=== PATIENT | male | born 1960 | race Caucasian/White ===

== ENCOUNTER 2023-05-28 14:48 | Outpatient (OUT) | payer BC, SELFPAY ==
--- NOTE | 2023-05-28 14:59 | XR_ITS ---
[facility] [place] [id number] Patient Name: ALIA ARENAS MRN: [id number] date: 1960 Sex: M Assigned Patient Location: [facility] Current Patient Location: [facility] Accession/Order Number: [id number] Exam Date: 05/28/2023 15:13 Report Date: 05/28/2023 18:06 At the request of: JULIA MCDANIELS Procedure: XR shoulder RT min 2V EXAM: XR shoulder RT min 2V HISTORY: M25.811 COMPARISON: None. TECHNIQUE: 3 views of the right shoulder were obtained. FINDINGS/IMPRESSION: 1. Severe joint space narrowing with marginal spurring is seen at the right acromioclavicular and right glenohumeral joint. These findings are suggestive of advanced osteoarthritis. 2. High riding right humeral head. Severe subacromial space narrowing. These findings are suggestive of the/tear. No acute fracture or subluxation. Electronically authenticated by: KILLIAN NIELSON Date: 05/28/2023 18:06
== END 2023-05-28 14:49 | disposition home or self-care (01) ==
LOC: RAD 14:53
PROVIDERS: PCP Family Medicine; Visit Provider Family Medicine
DX: M25.811 Other specified joint disorders, right shoulder (principal)
CPT/HCPCS: 73030

== ENCOUNTER 2023-08-10 10:53 | Outpatient (OUT) | payer BC, SELFPAY ==
--- NOTE | 2023-08-10 12:41 | P.CN_ITS ---
Consult Note: HPI Data of Consult Patient: known to practice within the last 3 years Consult date: 08/10/23 Requesting Physician: Torres Foote MD Primary Care Provider: Tricia Aragon MD Consult Narrative Reason for consult: low back pain Narrative: 62yom who presents for assessment. increasing low back pain, previously had lumbar rfa in 2019 with significant relief. continues in provider directed home exercise program > 6 weeks, with limited benefit. uses meloxicam, baclofen. denies adverse med side effects. cc:: CC: Torres Foote MD Review of Systems ROS Status of ROS 10 or more systems reviewed and unremarkable except as noted in history and below Meds Home Medications and Allergies Home Medications Medication Instructions Recorded Confirmed Type aspirin 325 mg tablet 325 mg PO DAILY 08/10/23 08/10/23 History baclofen 10 mg tablet 10 mg PO DAILY 08/10/23 08/10/23 History lisinopril 10 mg tablet 12.5 mg PO DAILY 08/10/23 08/10/23 History meloxicam 15 mg tablet 15 mg PO DAILY 08/10/23 08/10/23 History niacin 500 mg tablet 500 mg PO DAILY 08/10/23 08/10/23 History Allergies Allergy/AdvReac Type Severity Reaction Status Date / Time lorazepam [From Ativan] Allergy Unknown Verified 08/10/23 11:38 Exam Narrative Exam Narrative: Psych-alert and oriented x 3. Attentive and appropriate, constitutionally n ormal, displays normal mood and affect per situation.? There are no obvious deficits in memory, reasoning, or intellect.? Skin-no obvious rashes, bruising, erythema noted to the patient's area of pain. Extremities- extremities are warm with minimal edema and palpable pulses. Lumbar-no significant tenderness to palpation noted in the lumbar spine and paraspinal musculature.? Pain is elicited with extension, and lateral rotation of the lumbar spine. Range of motion is slightly diminished with these motions due to pain. Facet loading maneuvers are positive bilaterally and do appear to be concordant with the patient's normal complaints of pain.? Coordination remains intact.? Gait remains non-antalgic. Assessment and Plan Assessment and Plan (1) Lumbar spondylosis: Plan 62yom who presents for evaluation. failed physical and medical modalities, as noted. given symptoms and previous relief, will have him undergo bilateral l4-5, l5-s1 medial branch blocks under fluoroscopic guidance with intention of proceeding to radiofrequency ablation. he is in agreement. medications reviewed, no changes. follow up after procedure.
== END 2023-08-10 10:54 | disposition home or self-care (01) ==
LOC: PM 10:54
PROVIDERS: PCP Family Medicine; Visit Provider Anesthesiology
DX: M47.816 Spondylosis without myelopathy or radiculopathy, lumbar region (principal)
CPT/HCPCS: 72114; G0463

== ENCOUNTER 2023-08-10 11:44 | Outpatient (OUT) | payer BC, SELFPAY ==
--- NOTE | 2023-08-10 11:55 | XR_ITS ---
[facility] [place] [address] Patient Name: ALIA ARENAS MRN: [id number] date: 1960 Sex: M Assigned Patient Location: [facility] Current Patient Location: Accession/Order Number: [id number] Exam Date: 08/10/2023 12:12 Report Date: 08/11/2023 08:07 At the request of: PUSHPA ZHANG Procedure: XR lumbar spine 6V w bending EXAMINATION: XR lumbar spine 6V w bending HISTORY: Lumbar Spondylosis COMPARISON: No relevant comparison available. FINDINGS: BONES: 9 mm anterolisthesis of L4 in relation L5. Moderate to severe diffuse degenerative spondylosis and facet osteoarthropathy. No acute fracture. DISC SPACES: Moderate to severe multilevel disc space narrowing most significant at L5-S1 PARASPINOUS: Negative. No paraspinous abnormality is seen. OTHER: Vascular calcifications XR/XR lumbar spine 6V w bending IMPRESSION: Moderate to severe degenerative changes 9 mm anterolisthesis of L4 on L5 Electronically authenticated by: ANUPAM MENDOZA Date: 08/11/2023 08:07
== END 2023-08-10 11:45 | disposition home or self-care (01) ==
LOC: RAD 11:48
PROVIDERS: PCP Family Medicine; Visit Provider Anesthesiology
DX: M47.816 Spondylosis without myelopathy or radiculopathy, lumbar region (principal)
CPT/HCPCS: 72114

== ENCOUNTER 2023-09-07 07:49 | Day surgery (SDC) | payer BC, SELFPAY ==
[2023-09-07 08:43] VITALS: BP 141/85; PULSE 77; RESP 14; TEMP 36.3; O2SAT 100
[2023-09-07] MEDS: BUPIVACAINE HCL 0.25% PF 25 MG/10 ML VIAL 8 ML INJ (09:26)
[2023-09-07] MEDS: LIDOCAINE HCL 2% PF 100 MG/5 ML VIAL 3 ML INJ (09:26)
[2023-09-07 09:28] VITALS: PULSE 85; RESP 18; O2SAT 98
[2023-09-07 09:29] VITALS: BP 140/67; BP 145/68; PULSE 80; RESP 18; O2SAT 98
--- NOTE | 2023-09-07 09:30 | W.PM.PROCNOT ---
Date of procedure: 09/07/23 Pre-op diagnosis: Lumbar spondylosis Post-op diagnosis: same as pre-op Procedure: Procedure: Bilateral L4-5, L5-S1 medial branch block Medications: Bupivacaine 0.5% 6cc The patient was seen and examined in the preoperative holding area.? An informed consent was obtained and placed on the chart.? The patient was brought to the medical procedure unit and placed in the prone position.? A timeout was completed verifying correct patient, procedure site, positioning, plan, and special equipment.? Using aseptic technique, the needle was placed at left L4. Under direct fluoroscopic visualization a Quincke-tipped spinal needle was advanced to the junction of the superior articulating process with the transverse process at the designated medial branch segment.? Preceded by negative aspiration, the above-mentioned injectate was placed in 1 mL aliquots.? The procedure was repeated at left L5, S1.? The needle was removed and insertion site was covered. The same procedure, at the same levels, was completed on the right side. The patient was taken to the postprocedural recovery area and monitored for an appropriate length of time before found suitable for discharge in the company of a responsible adult. Anesthesia: Local Surgeon: Torres Foote Pathology: none sent Condition: stable Disposition: no change
== END 2023-09-07 09:35 | disposition home or self-care (01) ==
PROVIDERS: PCP Family Medicine; Visit Provider Anesthesiology
DX: M47.816 Spondylosis without myelopathy or radiculopathy, lumbar region (principal)
CPT/HCPCS: 64493; 64494

== ENCOUNTER 2023-09-24 14:41 | Outpatient (OUT) | payer BC, SELFPAY ==
--- NOTE | 2023-09-24 15:30 | P.CN_ITS ---
Consult Note: HPI Data of Consult Patient: known to practice within the last 3 years Consult date: 08/10/23 Requesting Physician: Karen Sow NP Primary Care Provider: Tricia Aragon MD Consult Narrative Reason for consult: f/u Narrative: 62yom who presents for assessment. increasing low back pain, previously had lumbar rfa in 2019 with significant relief. continues in provider directed home exercise program > 6 weeks, with limited benefit. uses meloxicam, baclofen. denies adverse med side effects. Patient rating pain today 4/10 in low back without radiculopathy. Patient had 100% pain relief from bilateral L4-5 L5-S1 MBB #1 immediately following and hours after, patient noticed he could stand for longer periods of time and be more active. cc:: CC: Karen Sow NP Review of Systems ROS Status of ROS 10 or more systems reviewed and unremark able except as noted in history and below Musculoskeletal Reports: back pain PFSH PFSH Medical History (Updated 08/25/23 @ 14:28 by Sujey Torres) Osteoarthritis ?M19.90 - Unspecified osteoarthritis, unspecified site (ICD-10) Upper back pain ?M54.9 - Dorsalgia, unspecified (ICD-10) Low back pain ?M54.50 - Low back pain, unspecified (ICD-10) Hearing deficit ?H91.90 - Unspecified hearing loss, unspecified ear (ICD-10) Obesity ?E66.9 - Obesity, unspecified (ICD-10) Former smoker ?Z87.891 - Personal history of nicotine dependence (ICD-10) Hypertension ?I10 - Essential (primary) hypertension (ICD-10) High cholesterol ?E78.00 - Pure hypercholesterolemia, unspecified (ICD-10) Surgical History S/P right knee arthroscopy ?Z98.890 - Other specified postprocedural states (ICD-10) Meds Home Medications and Allergies Home Medications Medication Instructions Recorded Confirmed Type aspirin 325 mg tablet 325 mg PO DAILY 08/10/23 09/07/23 History baclofen 10 mg tablet 10 mg PO DAILY 08/10/23 09/07/23 History lisinopril 10 mg tablet 12.5 mg PO DAILY 08/10/23 09/07/23 History meloxicam 15 mg tablet 15 mg PO DAILY 08/10/23 09/07/23 History niacin 500 mg tablet 500 mg PO DAILY 08/10/23 09/07/23 History Allergies Allergy/AdvReac Type Severity Reaction Status Date / Time lorazepam [From Ativan] Allergy Unknown Verified 09/07/23 08:39 Exam Narrative Exam Narrative: Psych-alert and oriented x 3. Attentive and appropriate, constitutionally normal, displays normal mood and affect per situation.? There are no obvious deficits in memory, reasoning, or intellect.? Skin-no obvious rashes, bruising, erythema noted to the patient's area of pain. Extremities- extremities are warm with minimal edema and palpable pulses. Lumbar-no significant tenderness to palpation noted in the lumbar spine and paraspinal musculature.? Pain is elicited with extension, and lateral rotation of the lumbar spine. Range of motion is slightly diminished with these motions due to pain. Facet loading maneuvers are positive bilaterally and do appear to be concordant with the patient's normal complaints of pain.? Coordination remains intact.? Gait remains non-antalgic. Constitutional Documenting provider has reviewed patient's vital signs: yes Common normals: no apparent distress, oriented x3, healthy appearing, alert and well nourished General appearance: cooperative HENFL Common normals: normocephalic, hearing grossly normal bilaterally and moist oral mucous membranes Head and scalp: normocephalic Eye Common normals: PERRL Pupil: PERRL Neck & C-Spine Common normals: full ROM General: normal visual inspection Chest Common normals: inspection of chest normal Respiratory Common normals: normal respiratory effort, no retractions and no use of accessory muscles Neuro Common normals: oriented x3, CN's II-XII intact bilaterally, moves all extremities, no focal motor deficits, no sensory deficits noted and deep tendon reflexes 2+ bilaterally Sensorium/orientation: alert Motor exam: strength 5/5 throughout and no movement abnormalities noted Psych Common normals: mental status grossly normal, thought process normal, cooperative, affect normal, speech normal and activity/motor behavior normal Speech: normal speech Thought process: normal thought process Results Additional Findings Additional findings: I have checked an [facility] report on this patient today and there are no aberrancies noted in the prescribing history.?? A drug screen was completed and reviewed within the last year, and if there has not been a drug screen completed we ordered one today to monitor higher risk, state monitored pain medication use. As part of providing excellent, safe, comprehensive care, the following was completed at our patient's visit: 1. A medication reconciliation and review to ensure accurate knowledge of current/active medications, including asking our patients to inform us about any [id number] medications or herbal remedies/nutritional supplements/alternative remedies. 2. A review to specifically ensure our patients have had annual screening for: elevated body mass index (BMI), tobacco use, screening for depression, and screening for unhealthy alcohol use. When screening is concerning, patients are provided with education and the specific recommendation to discuss the concerning health issue and treatment options with their primary care provider. Assessment and Plan Assessment and Plan (1) Lumbar spondylosis: Plan proceed with bilateral L4-5 L5-S1 MBB #2 working towards thermal RFA f/u after procedure
== END 2023-09-24 14:42 | disposition home or self-care (01) ==
LOC: PM 14:42
PROVIDERS: PCP Family Medicine; Visit Provider Nurse Practitioner
DX: M47.816 Spondylosis without myelopathy or radiculopathy, lumbar region (principal)
CPT/HCPCS: G0463

== ENCOUNTER 2023-12-08 14:09 | Outpatient (OUT) | payer MEDICARE, BC, SELFPAY ==
--- NOTE | 2023-12-08 14:19 | ECG_ITS ---
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
== END 2023-12-08 14:10 | disposition home or self-care (01) ==
LOC: CARD 14:13
PROVIDERS: PCP Family Medicine; Visit Provider Family Medicine
DX: I48.91 Unspecified atrial fibrillation (principal); I48.92 Unspecified atrial flutter
CPT/HCPCS: 93005

== ENCOUNTER 2024-04-12 09:59 | Outpatient (OUT) | payer MEDICARE, SELFPAY ==
--- NOTE | 2024-04-12 10:05 | VEIN_ITS ---
[place] [id number] Patient Name: ALIA ARENAS MRN: [id number] date: 1960 Sex: M Assigned Patient Location: Current Patient Location: Accession/Order Number: [id number] Exam Date: 04/12/2024 10:05 Report Date: 04/18/2024 12:33 At the request of: VAISHNAVI MCCALLUM Procedure: VC US Carotid EXAM: VC US Carotid HISTORY: I65.23 Bilateral carotid artery stenosis COMPARISON: None. TECHNIQUE: Grayscale, color and Doppler FINDINGS: Right carotid artery PSV/EDV: Mild atherosclerotic plaque CCA: 97/13 ICA: 57/21 Bulb: 51/8 ECA: 99/12 Vertebral: 36/10, antegrade ICA/CCA ratio: 0.8 Left carotid artery PSV/EDV: Mild atherosclerotic plaque CCA: 102/23 ICA: 65/13 Bulb: 62/10 ECA: 88/18 Vertebral: 34/8, antegrade ICA/CCA ratio: 0.8 VEIN/VC US Carotid IMPRESSION: 0-49% flow stenosis bilateral internal carotid arteries Electronically authenticated by: ANUPAM MENDOZA Date: 04/18/2024 12:33
--- NOTE | 2024-04-12 10:06 | VEIN_ITS ---
[facility] [place] [address] Patient Name: ALIA ARENAS MRN: [id number] date: 1960 Sex: M Assigned Patient Location: Current Patient Location: Accession/Order Number: [id number] Exam Date: 04/12/2024 10:05 Report Date: 04/18/2024 06:26 At the request of: VAISHNAVI MCCALLUM Procedure: VC SEGMENTAL PRESSURES EXAM: VC SEGMENTAL PRESSURES HISTORY: I73.9 Claudiction COMPARISON: None. FINDINGS: Segmental pressures presented as follows (right, left) in mmHg. 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: 278, 270 1st Toe: 211, 185 MARJORIE: 2.18, 2.15 TBI: 1.16, 1.42 The ABIs are falsely elevated secondary to arterial sclerosis The TBI's are elevated PVR waveforms: Right leg: Thigh: Normal Above knee: Normal Below knee: Normal Right ankle: Normal Metatarsal: Normal Left leg: Thigh: Normal Above knee: Normal Below knee: Mild ischemic waveform Right ankle: Mild ischemic waveform Metatarsal: Normal VEIN/VC SEGMENTAL PRESSURES IMPRESSION: Elevated ABIs secondary to arteriosclerosis Mild ischemic waveform left below knee and ankle Electronically authenticated by: ANUPAM MENDOZA Date: 04/18/2024 06:26
--- OUTSIDE RECORDS SUMMARY | 2024-04-12 10:16 | XMS_ITS | CCD ---
Author Organization [facility] Care Team Providers Care Physician'S Aide Name Role Phone JULIA MCDANIELS Primary Care Physician Julia Mcdaniels MD Primary Care Provider DO Anupam Quesada Attending Provider MD Julia Mcdaniels Primary Care Provider MD Julia Mcdaniels Attending Provider [phone] DO Bree Segovia Referring Provider Julia Mcdaniels Unavailable Unavailable Unavailable Julia Mcdaniels Unavailable AMIN ., DR ROMAN Garcia Admitting Unavailable AMIN ., DR ROMAN Garcia Attending Unavailable JULIA MCDANIELS Primary Care Unavailable AMIN ., DR ROMAN Garcia Consulting Unavailable MAHAN ., JANIS Consulting Unavailable AMIN ., DR ROMAN Garcia Admitting Unavailable AMIN ., DR ROMAN Garcia Attending Unavailable JULIA MCDANIELS Primary Care Unavailable AMIN ., DR ROMAN Garcia Consulting Unavailable LINDA SAENZ Consulting Unavailable POCOS, DR BO Admitting Unavailable POCOS, DR BO Attending Unavailable JULIA MCDANIELS Primary Care Unavailable ABBAS, DR ROD Admitting Unavailable ABBAS, DR ROD Attending Unavailable JULIA MCDANIELS Primary Care Unavailable ABBAS, DR ROD Consulting Unavailable BANNOCK, DR BO V Consulting Unavailable MAHAN .JANIS Admitting Unavailable MAHAN .JANIS Attending Unavailable ARSLAN, JULIA E Primary Care Unavailable Wanda Cadena Consulting Unavailable MAHAN ., JANIS Consulting Unavailable AMIN ., DR ROMAN Garcia Admitting Unavailable AMIN ., DR ROMAN Garcia Attending Unavailable JULIA MCDAINELS Primary Care Unavailable MAHAN ., JANIS Consulting Unavailable AMIN ., DR ROMAN Garcia Admitting Unavailable AMIN ., DR ROMAN Garcia Attending Unavailable JULIA MCDANIELS Primary Care Unavailable MAHAN ., JANIS Consulting Unavailable ELOISA ., DR ROMAN Garcia Admitting Unavailable ELOISA ., DR ROMAN Garcia Attending Unavailable JULIA MCDANIELS Primary Care Unavailable MAHAN ., JANIS Consulting Unavailable Julia Mcdaniels MD Primary Care Provider Hima ALBERTS, Dr. Americo Leblanc Attending Unavailable McGuinn II, Dr. Americo Leblanc Referring Unavailable Mcdaniels, Dr. Julia Donohue Primary Care Unav ailable McGuinn II, Dr. Americo Leblanc Referring Unavailable McGuinn II, Dr. Americo Leblanc Attending Unavailable Mcdaniels, Dr. Julia Donohue Primary Care Unav ailable Arslan, Dr. Julia Donohue Primary Care Unav ailable Luca, Americo Attending Unavailable McGuinn II, Dr. Americo Leblanc Attending Unavailable McGuinn II, Dr. Americo Leblanc Referring Unavailable Mcdaniels, Dr. Julia Donohue Primary Care Unav ailable McGuinn II, Dr. Americo Leblanc Attending Unavailable McGuinn II, Dr. Americo Leblanc Referring Unavailable Mcdaniels, Dr. Julia Donohue Primary [facility] [place] Unav carmenable Qamar JAVIER, Torres Castañeda Attending Unavailable Qamar JAVIER, Torres Castañeda Attending Unavailable Julia Mcdaniels MD Primary Care Provider MD Julia Mcdaniels Primary Care Provider MD Americo Rabago Attending Provider MD Americo Rabago Referring Provider Americo Rabago Admitting Unavail able Americo Rabago Attending Unavail able Americo Rabago Referring Unavail able Julia Mcdaniels Primary Care Unavailable MD Julia Mcdaniels Primary Care Provider MD Americo Rabago Attending Provider MD Americo Rabago Referring Provider Julia Mcdaniels MD Primary Care Provider SUKUMAR BREWER Attending Unavailable JULIA MCDANIELS Referring Unavailable JULIA MCDANIELS Primary Care Unavailable Mcdaniels MD, Julia E Primary Care Provider [phone] POCOS, ANUPAM Anand Referring Unavailable POCOS, ANUPAM Anand Attending Unavailable POCOS, ANUPAM Anand Attending Unavailable POCOS, ANUPAM Anand Attending Unavailable KARAMLOU, ANSELMO Referring Unavailable KARAMLOU, ANSELMO Attending Unavailable MCDANIELS, JULAI E Primary Care Unavailable MCDANIELS, JULIA E Primary Care Unavailable KARAMLOU, ANSELMO Referring Unavailable MCDANIELS, JULIA E Primary Care Unavailable KARAMLOU, ANSELMO Referring Unavailable MARGARITA TAYLOR Attending Unavailable MCDANIELS, JULIA E Primary Care Unavailable KARAMLOU, ANSELMO Referring Unavailable MCDANIELS, JULIA E Primary Care Unavailable KARAMLOU, ANSELMO Referring Unavailable KARAMLOU, ANSELMO Attending Unavailable MCDANIELS, JULIA E Primary Care Unavailable MCDANIELS, JULIA E Primary Care Unavailable KARAMLOU, ANSELMO Referring Unavailable MCDANIELS, JULIA E Primary Care Unavailable KARAMLOU, ANSELMO Referring Unavailable KARAMLOU, ANSELMO Attending Unavailable MCDANIELS, JULIA E Primary Care Unavailable KARAMLOU, ANSELMO Referring Unavailable MCDANIELS, JULIA E Primary Care Unavailable MCDANIELS, JULIA E Primary Care Unavailable KARAMLOU, ANSELMO Referring Unavailable MCDANIELS, JULIA E Primary Care Unavailable KARAMLOU, ANSELMO Referring Unavailable KARAMLOU, ANSELMO Attending Unavailable MCDANIELS, JULIA E Primary Care Unavailable MCDANIELS, JULIA E Primary Care Unavailable KARAMLOU, ANSELMO Referring Unavailable KARAMLOU, ANSELMO Referring Unavailable MCDANIELS, JULIA E Primary Care Unavailable KARAMLOU, ANSELMO Referring Unavailable MARGARITA TAYLOR Attending Unavailable MCDANIELS, JULIA E Primary Care Unavailable KARAMLOU, ANSELMO Referring Unavailable MCDANIELS, JULIA E Primary Care Unavailable MCDANIELS, JULIA E Primary Care Unavailable MCGUINN, AMERICO P Attending Unavailable MCDANIELS, JULIA E Primary Care Unavailable MCGUINN, AMERICO P Referring Unavailable MCDANIELS, JULIA E Primary Care Unavailable MCGUINN, AMERICO P Referring Unavailable MCDANIELS, JULIA E Primary Care Unavailable MCGUINN, AMERICO P Referring Unavailable MCDANIELS, JULIA E Primary Care Unavailable ELIAS Kevin Admitting Unavailabl e MCDANIELS, JULIA Referring Unavailable Staci Kevin Attending Unavailable ARSLAN, JULIA Referring Unavailable ELIAS Kevin Admitting Unavailabl e Herberth Staci Attending Unavailable Ruben CHASE Referring Unavailable NILLRuben Admitting Unavailable NILRuben Jurado Attending Unavailable DO David Cao Admitting UnavailDavid Ty Attending Unavailable David Cao Referring Unavailable DO David Cao Admitting UnavailDavid Ty Attending Unavailable David Cao Referring Unavailable Vicky, Anupam Anand Admitting Unavailable Poccindi, Anupam Anand Attending Unavailable Poccindi, Anupam Anand Referring Unavailable NILL, Ruben Martinez Attending Unavailable NILL, Ruben Martinez Attending Unavailable MCDANIELSJULIA Admitting Unavailable MCDANIELS, JULIA Attending Unavailable MCDANIELS, JULIA Referring Unavailable Pocos, Anupam Anand Admitting Unavailable Pocos, Anupam Anand Attending Unavailable Pocos, Anupam Anand Admitting Unavailable Pocos, Anupam Anand Attending Unavailable Allergies Allergy Classification Reported Allergen(s) Allergy Type Date of Onset Reaction(s) Facility (20 sources) LORazepam; Translations: [lorazepam] Drug Allergy 3 Other: See Comments, Dizziness, Dizziness (finding) [facility] (2 sources) LORazepam Drug Allergy [address] [facility] Repository (20 sources) ezetimibe / Simvastatin; Translations: [ezetimibe-simva statin] Drug Allergy 2 Unknown, Weal (disorder) [facility] (20 sources) lamoTRIgine; Translations: [LAMOTRIGINE] Drug Allergy 2 Mental Status Change, Feeling agitated (finding) [facility] (3 sources) ezetimibe Drug Allergy 3 [facility] Repository (1 source) lamoTRIgine Drug Allergy 3 [facility] Repository (1 source) LORazepam Drug Allergy 3 [facility] Repository (3 sources) Simvastatin Drug Allergy 3 [facility] Repository (2 sources) ezetimibe / Simvastatin; Translations: [EZETIMIBE-SIMVA STATIN] Drug Allergy 2 [facility] Repository (1 source) ezetimibe / Simvastatin; Translations: [Vytorin] Drug Allergy [facility] Repository (1 source) lamoTRIgine; Translations: [LaMICtal] Drug Allergy [facility] Repository Medications Current Medications Medication Drug Class(es) Dates Sig (Normalized) Sig (Original) 0.25 MG, 0.5 MG Dose 3 ML semaglutide 0.68 MG/ML Pen Injector [Ozempic] (2 sources) inject 0.5 mg by subcutaneous injection every week Ozempic (0.25 or 0.5 MG/DOSE) 2 MG/3ML 0.5mg Subcutaneous weekly for 30 days Active [id number] 200 actuat albuterol 0.09 mg/actuat metered dose inhaler (20 sources) beta2-Adrenergic Agonist Start: 10-21-2022 take 2 puff(s) by inhalation every four hours as needed Ventolin HFA 108 (90 Base) MCG/ACT 2 puffs as needed Inhalation every 4 hrs Oct, Active Start: 07-11-2021 albuterol (PRO VENTIL HFA;VENTOLIN HFA) 90 mcg/actuation inhaler apixaban 5 mg oral tablet (20 sources) Factor Xa Inhibitor Start: 10-07-2023 End: 11-04-2024 apixaban (ELIQUIS) 5 mg tab(s) Take 5 mg by mouth. 0 10/07/2023 11/04/2024 Active Comment on above: Take 5 mg by mouth. aspirin 81 mg delayed release oral tablet (20 sources) Platelet Aggregation Inhibitor, Nonsteroidal Anti-inflammatory Drug Start: 08-05-2022 Aspirin 81 mg Tab -EC 81 mg = 1 tab(s), Oral, BIDPC, # 60 tab(s), Refills(s) 0, Pharmacy: [facility]/pharmacy #[id number], 177, cm, 07/18/22 10:25:00 EDT, Height/Length Dosing, 131.4, kg, 07/18/22 10:25:00 EDT, Weight Dosing Start Date: 08/05/22 Status: Ordered Start: 07-18-2022 End: 10-07-2023 take 1 tablet by mouth once daily aspirin buffered 325 mg oral tablet 325 mg = 1 tab(s), Oral, Daily, Blood Thinner Start Date: 07/18/22 Status: Ordered Comment on above: Take 325 mg by mouth once daily. Aspirin 81 mg Tab-EC (3 sources) Start: 08-05-2022 Aspirin 81 mg Tab-EC 81 mg = 1 tab(s), Oral, BIDPC, # 60 tab(s), Refills(s) 0, Pharmacy: [facility]/pharmacy #[id number], 177, cm, 07/18/22 10:25:00 EDT, Height/Length Dosing, 131.4, kg, 07/18/22 10:25:00 EDT, Weight Dosing Start Date: 08/05/22 Status: Ordered baclofen 10 mg oral tablet (20 sources) gamma-Aminobutyric Acid-ergic Agonist Start: 07-18-2022 take 1 tablet by mouth once daily as needed for pain baclofen 10 mg Tab 10 mg = 1 tab(s), Oral, Daily, PRN Pain, Refills(s) 0 Start Date: 07/18/22 Status: Ordered Start: 09-25-2021 take 10 mg by mouth three times daily Baclofen Active 10 MG PO Three times daily November 03, 2023 1:00am Baclofen 10 MG/2 0ML as directed Intrathecal Not-Taking/PRN Comment on above: Take 10 mg by mouth as needed. cefadroxil 500 mg oral capsule (1 source) Cephalosporin Antibacterial Start: 2 End: 2 take 1 capsule by mouth every twelve hours cefadroxil 500 mg Cap 500 mg = 1 cap(s), Oral, q12hr, X 2 day(s), # 4 cap(s), Refills(s) 0, Pharmacy: [facility]/pharmacy #[id number], 177, cm, 07/18/22 10:25:00 EDT, Height/Length Dosing, 131.4, kg, 07/18/22 10:25:00 EDT, Weight Dosing Start Date: 08/05/22 Stop Date: 08/07/22 Status: Ordered cefdinir 300 mg oral capsule (6 sources) Cephalosporin Antibacterial Start: 4 take 1 capsule by mouth every twelve hours cefdinir (OMNICEF) 300 mg capsule Take 1 capsule by mouth every 12 hours. 0 12/24/2023 Active Start: 12-24-2023 End: 01-12-2024 take 300 mg by mouth twice daily Cefdinir Discontinued 300 MG PO Twice daily December 24, 2023 12:00am January 12, 2024 11:40am Comment on above: Take 1 capsule by [facility] every 12 hours. Cetirizine (4 sources) Histamine-1 Receptor Antagonist cetirizine HCl (ZYRTEC ORAL) Take by mouth once daily. 0 Active Comment on above: Take by mouth once d aily. dexamethasone 4 mg oral tablet (1 source) Corticosteroid Start : 07-05 dexAMETHasone (DECADRON) 4 mg tablet docusate sodium 100 mg oral capsule (5 sources) Start : 08-05 take 1 capsule by mouth twice daily as needed for constipation Colace 100 mg Cap 100 mg = 1 cap(s), Oral, BID, PRN for constipation, # 40 cap(s), Refills(s) 0, Pharmacy: [facility]/pharmacy #[id number], 177, cm, 07/18/22 10:25:00 EDT, Height/Length Dosing, 131.4, kg, 07/18/22 10:25:00 EDT, Weight Dosing Start Date: 08/05/22 Status: Ordered hydroCHLOROthiazide 12.5 mg / lisinopril 20 mg oral tablet (20 sources) Thiazide Diuretic, Angiotensin Converting Enzyme Inhibitor Start : 01-24 take 1 tablet by mouth once daily Lisinopril-Hydroch lorothiazide Active 0 .ROUTE .COMPLEX 90 January 25, 2024 11:11am TAKE 1 TABLET BY MOUTH DAILY Start: 07-18-2022 End: 01-25-2024 take 1 tablet by mouth once daily hydrochlorothiazide-lisinopril 12.5 mg-2 0 mg Tab 1 tab(s), Oral, Daily, Refill(s) 0, High blood pressure Start Date: 07/18/22 Status: Ordered Start: 03-13-2021 lisinopril-hyd roCHLOROthiazide (PRINZIDE,ZESTORETIC) 20-12.5 mg per tablet Ibuprofen (16 sources) Nonsteroidal Anti-inflammatory Drug IBUPROFEN ORAL Ta ke by mouth. 0 Active Comment on above: Take by mouth. ketoconazole 20 mg/ml topical cream (17 sources) Azole Antifungal Start: 08-19-2021 ketoconazole (NIZORAL) 2 % cream Start: 04-05-2019 End: 07-30-2022 ketoconazole (NIZORAL) 2 % c ream USE 1-2 TIMES A DAY 3 04/05/2019 07/30/2022 Discontinued Ketoconazole 2 % 1 application Externally Once a day for 14 days Active Ketoconazole 2 % 1 application Externally Once a day for 14 days Active Comment on above: USE 1-2 TIMES A DAY levoFLOXacin 750 mg oral tablet (1 source) Quinolone Antimicrobial Start: 07-05-20 levoFLOXacin (LEVAQUIN) 750 mg tablet 24 hr metFORMIN hydrochloride 500 mg extended release oral tablet (2 sources) Biguanide Start: 03-26-20 take 2 tablets by mouth every twenty-four hours metFORMIN HCl ER 500 MG 2 tablets with evening meal Orally Once a day for 30 days Mar, Active 24 hr metoprolol succinate 100 mg extended release oral tablet (2 sources) beta-Adrenergic Jayne Start: 10-07-20 End: 10-06-20 take 1 tablet by mouth once daily metoprolol succinate XL (Toprol-XL) 100 mg 24 hr tablet Indications: Persistent atrial fibrillation (CMS/HCC) Take 1 tablet (100 mg) by mouth once daily. Do not crush or chew. 90 tablet 3 10/07/2023 10/06/2024 Active multivitamin tablet (2 sources) End: 10-22-19 take 1 tablet by mouth once daily multivitamin tablet Take 1 tablet by mouth once daily. 0 10/22/2023 Discontinued (Therapy completed) take 1 tablet by mouth once reg y multivitamin tablet Take 1 tablet by mouth once daily. 0 Active multivitamin with minerals (9 sources) Start: 12-14-2023 multivitamin w ith minerals Refill(s) 0 Start Date: 12/14/23 Status: Ordered multivitamin-mineral s-lutein (CENTRUM SILVER) tablet (1 source) take 1 tablet by mouth in the morning multivitamin-minera ls-lutein (CENTRUM SILVER) tablet Take 1 tablet by mouth in the morning. 0 Active niacin 500 mg extended release oral capsule (20 sources) Nicotinic Acid Start: 11-03-2023 take 500 mg by mouth once daily at bedtime Niacin Active 500 MG PO Daily at bedtime November 03, 2023 1:00am Start: 07-18-2022 take 1 tablet by toyin th once daily niacin 500 mg ER Tab 500 mg = 1 tab(s), Oral, Daily, Refills(s) 0, High cholesterol Start Date: 07/18/22 Status: Ordered Start: 09-11-2021 NIASPAN EXTEND ED-RELEASE 500 mg CR tablet take 1 tablet by toyin th at bedtime Niacin ER (Antihyperlipidemic) 500 MG TAKE 1 TABLET BY MOUTH AT BEDTIME for 90 Active Comment on above: Take 500 mg by mouth daily with breakfast. oxyCODONE hydrochloride 5 mg oral tablet (5 sources) Opioid Agonist Start: 08-05-20 oxyCODONE 5 mg Tab 5 mg = 1 tab(s), Oral, As Directed, 1-2 po q4-6 hrs prn pain Dx: M17.11, Z96.651 Duration: 7days, # 40 tab(s), Refills(s) 0, Pharmacy: [facility]/pharmacy #[id number], 177, cm, 07/18/22 10:25:00 EDT, Height/Length Dosing, 131.4, kg, 07/18/22 10:25:00 EDT, Weight Dosing Start Date: 08/05/22 Status: Ordered Semaglutide (9 sources) Semaglutide Acti ve sildenafil 50 mg oral tablet (17 sources) Phosphodiesterase 5 Inhibitor Start: 03-14-20 take 1 tablet by mouth once daily as needed sildenafil (VIAGRA) 50 mg tablet TAKE 1 TABLET BY MOUTH NEEDED DAILY 0 03/14/2021 Active Comment on above: TAKE 1 TABLET BY TOYIN TH NEEDED DAILY sotalol hydrochloride 120 mg oral tablet (20 sources) Antiarrhythmic Start: 01-12-20 Sotalol (Sotalol Af) 120 mg tablet Active 40 MG PO Twice daily January 12, 2024 11:35am Start: 12-14-2023 sotalol 80 mg Tab 40 mg = 0.5 tab(s), Oral, BID Start Date: 12/14/23 Status: Ordered Start: 12-08-2023 End: 01-12-2024 Sotalol (Sotalol Af) 120 mg tablet Discontinued 80 MG PO Twice daily December 08, 2023 2:46pm January 12, 2024 11:36am Start: 11-03-2023 End: 12-08-2023 take 1 tablet by mouth twice daily Sotalol (Sotalol Af) 120 mg tablet Discontinued 120 MG PO Twice daily November 03, 2023 1:00am December 08, 2023 2:48pm Start: 10-22-2023 End: 10-21-2024 sotalol (BETAPACE) 80 mg tab let Take 20 tablets by mouth two times a day. 0 10/22/2023 Active take 40 mg by mouth at bedtime s otalol HCl (SOTALOL ORAL) Take 40 mg by mouth in the morning and at bedtime. 0 Active take 1 tablet by toyin th every twelve hours Sotalol HCl 120 MG 1 tablet Orally every 12 hrs Active Comment on above: Take 1 tablet by toyin th two times a day. tadalafil 10 mg oral tablet (2 sources) Phosphodiesterase 5 Inhibitor Start: 11-04-2021 tadalafiL (CIALIS) 10 MG tablet Take 1 tablet (10 mg total) by mouth as needed. 0 11/04/2021 Active triamcinolone acetonide 0.055 mg/actuat metered dose nasal spray (6 sources) Corticosteroid Start: 02-04-2024 Nasacort Allergy 24HR nasal spray 1 spray(s), Nasal, Daily Allergy symptoms, Refill(s) 0 Start Date: 02/04/24 Status: Ordered Completed/Discontinued Medications Medication Drug Class(es) Dates Sig (Normalized) Sig (Original) amoxicillin 500 mg oral tablet (1 source) Penicillin-class Antibacterial Start: 01-13-2024 End: 02-17-2024 take 1000 mg by mouth twice daily Amoxicillin Discontinued 1000 MG PO Twice daily January 13, 2024 12:00am February 17, 2024 11:23am amoxicillin 875 mg / clavulanate 125 mg oral tablet (10 sources) Penicillin-class Antibacterial Start: 08-25-2022 take 1 tablet by mouth twice daily amoxicillin-clavul anic acid (AUGMENTIN) 875-125 mg per tablet Take 1 tablet by mouth twice daily. 0 08/25/2022 Active Comment on above: Take 1 tablet by toyin twice daily. cephalexin 500 mg oral tablet (20 sources) Cephalosporin Antibacterial Start: 10-15-2022 take 1 tablet by mouth every eight hours Cephalexin 500 MG 1 tablet Orally tid for 7 days Oct, Not-Taking/PRN Start: 08-05-2022 End: 08-12-2022 take 1 capsule by mouth three times daily Keflex 500 mg Cap 500 mg = 1 cap(s), Oral, TID, X 7 day(s), # 21 cap(s), Refills(s) 0, Pharmacy: [facility]/pharmacy #[id number], 177, cm, 07/18/22 10:25:00 EDT, Height/Length Dosing, 131.4, kg, 07/18/22 10:25:00 EDT, Weight Dosing Start Date: 08/05/22 Stop Date: 08/12/22 Status: Ordered meloxicam 15 mg oral tablet (20 sources) Nonsteroidal Anti-inflammatory Drug Start: 04-14-2022 take 1 tablet by mouth once daily meloxicam (MOBIC) 15 mg tablet TAKE 1 TABLET BY MOUTH EVERY DAY FOR 30 DAYS 0 04/14/2022 Active take 1 capsule by mo [facility] every twenty-four hours Meloxicam 10 MG 1 capsule Orally Once a day Active Comment on above: TAKE 1 TABLET BY TOYIN EVERY DAY FOR 30 DAYS methylPREDNISolone 4 mg oral tablet (19 sources) Corticosteroid Start: 023 Medrol (Jaydon) 4 MG as directed Orally daily for 6 days Oct, Not-Taking/PRN Multi Vitamin Oral Tablet (4 sources) take 1 tablet by mouth once daily Multi Vitamin Oral Tablet TAKE 1 TABLET DAILY. Quantity: 0 Refills: 0 Ordered: 05-Nov-2022 DO Active rosuvastatin calcium 20 mg oral tablet (1 source) HMG-CoA Reductase Inhibitor Start: 019 End: 022 rosuvastatin (CRESTOR) 20 mg tablet Every 3 days 0 06/28/2019 07/30/2022 Discontinued (Discontinued by another Health Care Provider) Comment on above: Every 3 days semaglutide (OZEMPIC SUBCUTANEOUS) (7 sources) semaglutide (OZEMPIC SUBCUTANEOUS) Inject subcutaneously. 0 Active Comment on above: Inject subcutaneousl y. Vitamin D3 CAPS (2 sources) Vitamin D3 CAPS TAKE 1 CAPSULE Daily Quantity: 0 Refills: 0 Ordered: 05-Nov-2022 DO Active Problems Active Problems Problem Classification Problem Date Documented Da te Episodic/Chronic Cardiac dysrhythmias (20 sources) Premature atrial contraction; Translations: [Supraventricular premature beats] Onset: 3 10-07-2023 Chronic Chronic obstructive pulmonary disease and bronchiectasis (2 sources) Bronchitis, not specified as acute or chronic Episodic Diabetes mellitus with complications (20 sources) Type 2 diabetes mellitus; Translations: [Type 2 diabetes mellitus with hyperglycemia] Chronic Disorders of lipid metabolism (20 sources) Hypercholesterolemia; Translations: [Hyperlipidemia] Onset: 4 07-18-2022 Chronic E Codes: Adverse effects of medical drugs (2 sources) Adverse effect of unspecified drugs, medicaments and biological substances, initial encounter Episodic Essential hypertension (20 sources) Hypertensive disorder; Translations: [Unspecified essential hypertension] Onset: 3 07-18-2022 Chronic Genitourinary symptoms and ill-defined conditions (1 source) Frequency of micturition Episodic Inflammation; infection of eye (except that caused by tuberculosis or sexually transmitteddisease) (10 sources) Conjunctivitis; Translations: [Unspecified conjunctivitis] Episodic Joint disorders and dislocations; trauma-related (10 sources) Late effect of dislocation; Translations: [Dislocation of tarsometatarsal joint of right foot, sequela] Episodic Malaise and fatigue (11 sources) Other fatigue; Translations: [Fatigue] Episodic Miscellaneous mental health disorders (10 sources) Male erectile disorder; Translations: [Male erectile disorder] Chronic Mood disorders (10 sources) Mood swings; Translations: [Emotional lability] Episodic Nonspecific chest pain (10 sources) Chest pain; Translations: [Chest pain, unspecified] Episodic Occlusion or stenosis of precerebral arteries (8 sources) Occlusion and stenosis of bilateral carotid arteries; Translations: [Bilateral stenosis of carotid arteries] Onset: 4 01-28-2024 Chronic Comment on above: Outside Source Comme nt: Last Assessment & Plan: Carotid duplex US Osteoarthritis (20 sources) Bilateral osteoarthritis of knees; Translations: [Osteoarthritis of right knee joint] Onset: 6 07-18-2022 Chronic Other circulatory disease (20 sources) History of transient ischemic attack 07-18-2022 Episodic Other circulatory disease (10 sources) Elevated blood-pressure reading without diagnosis of hypertension; Translations: [Elevated blood-pressure reading, without diagnosis of hypertension] Episodic Other circulatory disease (10 sources) Cardiovascular symptoms; Translations: [Other specified symptoms and signs involving the circulatory and respiratory systems] Episodic Other connective tissue disease (10 sources) Pain in right foot; Translations: [Pain in right foot] Episodic Other connective tissue disease (10 sources) Ganglion, right ankle and foot; Translations: [Ganglion, right ankle and foot] Episodic Other connective tissue disease (10 sources) Tibialis tendinitis; Translations: [Posterior tibial tendinitis, right leg] Episodic Other ear and sense organ disorders (10 sources) Infective otitis externa; Translations: [Other infective otitis externa, right ear] Episodic Other ear and sense organ disorders (10 sources) Impacted cerumen; Translations: [Impacted cerumen, bilateral] Episodic Other lower respiratory disease (2 sources) Chronic cough; Translations: [Chronic cough] 02-17-2024 Episodic Other male genital disorders (8 sources) Impotence 01-15-2024 Chronic Other nervous system disorders (1 source) Other chronic pain; Translations: [OTHER CHRONIC PAIN] Onset: 2 Chronic Other non-traumatic joint disorders (10 sources) Arthralgia of the ankle and/or foot; Translations: [Pain in right ankle and joints of right foot] Episodic Other non-traumatic joint disorders (10 sources) Arthropathy of right shoulder; Translations: [Other specified joint disorders, right shoulder] Episodic Other non-traumatic joint disorders (1 source) Other specified joint disorders, right shoulder Episodic Other nutritional; endocrine; and metabolic disorders (20 sources) Body mass index 40+ - severely obese; Translations: [Morbid obesity] 01-28-2024 Chronic Other nutritional; endocrine; and metabolic disorders (18 sources) Morbid obesity; Translations: [Morbid (severe) obesity due to excess calories] 01-15-2024 Chronic Other nutritional; endocrine; and metabolic disorders (14 sources) Excessive thirst; Translations: [Polydipsia] Episodic Other nutritional; endocrine; and metabolic disorders (1 source) Polydipsia Episodic Other screening for suspected conditions (not mental disorders or infectious disease) (20 sources) Iron overload; Translations: [Electrocardiogram abnormal] Onset: 3 07-18-2022 Episodic Other skin disorders (10 sources) Hypertrophic condition of skin; Translations: [Other hypertrophic disorders of the skin] Episodic Other skin disorders (2 sources) Sebaceous cyst of skin; Translations: [Sebaceous cyst] 01-12-2024 Episodic Other skin disorders (2 sources) Sebaceous cyst; Translations: [Sebaceous cyst] 01-12-2024 Episodic Other skin disorders (3 sources) Epidermoid cyst; Translations: [Epidermal cyst] Onset: 4 Episodic Other skin disorders (7 sources) Epidermoid cyst of skin 01-28-2024 Episodic Other upper respiratory disease (18 sources) Seasonal allergic rhinitis; Translations: [Other seasonal allergic rhinitis] 01-15-2024 Chronic Other upper respiratory infections (12 sources) Chronic sinusitis; Translations: [Chronic sinusitis, unspecified] 02-17-2024 Chronic Peripheral and visceral atherosclerosis (20 sources) Peripheral vascular disease; Translations: [Peripheral vascular disease, unspecified] Onset: 4 01-15-2024 Chronic Comment on above: Outside Source Comme nt: Last Assessment & Plan: PVR, best medical therapy and exercise Phlebitis; thrombophlebitis and thromboembolism (1 source) Embolism and thrombosis of superficial veins of right lower extremity; Translations: [EMBOLISM AND THROMB SUP VEINS RLE] Onset: 3 Episodic Residual codes; unclassified (4 sources) Edema, unspecified; Translations: [EDEMA UNSPECIFIED] Onset: 3 Episodic Respiratory failure; insufficiency; arrest (adult) (1 source) Respiratory failure; insufficiency; arrest (adult) Onset: 4 Screening and history of mental health and substance abuse codes (4 sources) Ex-smoker; Translations: [Personal history of tobacco use] Episodic Spondylosis; intervertebral disc disorders; other back problems (20 sources) Other intervertebral disc degeneration, lumbar region; Translations: [Spondylosis without myelopathy or radiculopathy, lumbar region] Onset: 2 Chronic Spondylosis; intervertebral disc disorders; other back problems (11 sources) Pain in thoracic spine; Translations: [Low back pain] Onset: 2 Episodic Unclassified (3 sources) LOW BACK PAIN, UNSPECIFIED; Translations: [LOW BACK PAIN, UNSPECIFIED] Onset: 2 Unclassified (1 source) Thrombophlebitis of superficial vein of lower leg Onset: 4 Unclassified (2 sources) Other persistent atrial fibrillation; Translations: [Other persistent atrial fibrillation (CMS/HCC)] Onset: 3 Viral infection (10 sources) Herpes zoster without complication; Translations: [Zoster without complications] Episodic Viral infection (10 sources) Disease caused by 2019-nCoV; Translations: [COVID-19] Past or Other Problems Problem Classification Problem Date Documented Date Episodic/Chronic Acute bronchitis (10 sources) Acute bronchitis; Translations: [Acute bronchitis, unspecified] Onset: 08-29-2016 Episodic Cardiac dysrhythmias (10 sources) Palpitations; Translations: [Palpitations] Onset: 10-01-2023 10-07-2023 Episodic Coagulation and hemorrhagic disorders (13 sources) Platelet disorder; Translations: [Qualitative platelet defects] Onset: 12-29-2023 Resolved: 03-22-2024 12-29-2023 Chronic Mycoses (10 sources) Tinea corporis; Translations: [Tinea corporis] Onset: 03-14-2015 Episodic Other hematologic conditions (20 sources) Secondary polycythemia; Translations: [Secondary polycythemia] Onset: 09-25-2017 Episodic Other lower respiratory disease (10 sources) Dyspnea; Translations: [Dyspnea, unspecified] Onset: 02-13-2016 Episodic Other nervous system disorders (16 sources) Numbness of foot ; Translations: [Anesthesia of skin] Onset: 02-16-2017 02-16-2017 Episodic Other non-traumatic joint disorders (5 sources) Pain in right knee; Translations: [PAIN IN RIGHT KNEE] Onset: 01-01-2022 Episodic Other non-traumatic joint disorders (1 source) Pain in left knee; Translations: [PAIN IN LEFT KNEE] Onset: 05-26-2022 Episodic Other non-traumatic joint disorders (10 sources) Shoulder joint pain; Translations: [Pain in right shoulder] Onset: 07-01-2017 Episodic Other non-traumatic joint disorders (10 sources) Arthralgia of the lower leg; Translations: [Pain in unspecified knee] Onset: 06-13-2014 Episodic Other upper respiratory infections (10 sources) Acute maxillary sinusitis; Translations: [Acute recurrent maxillary sinusitis] Onset: 12-28-2018 Episodic Residual codes; unclassified (16 sources) History of arthroscopy of knee joint; Translations: [Other specified postprocedural states] Onset: 09-12-2016 09-12-2016 Episodic Unclassified (1 source) LOW BACK PAIN, UNSPECIFIED; Translations: [LOW BACK PAIN, UNSPECIFIED] Onset: 08-14-2022 Results Test Name Value Interpretation Reference Range Facility Coding Summary.on 03-31-2024 Coding Summary. QXLKPejb91IRo2bXz+PG hlYWQ+SP1TAKEpI62gpY WvkP3bM9SKRBkYLzkcNH QAIRvQMbOnwhDaBD6bcO NjZXJu IC8+IZ2hFYOkEvtucLSm j1G4eZE7H24ajv9jJEvt pNJ3IVAiUjUxoeryy3gc kBy8QXqzXovmErGc WSIndM90UHD2tQ51Cu25 rMSfgFUdd7xfoSp4GuKi ZRCvYJN2kFtmRQqbf0Ma VQIpP28lbZXpb0E4 IGNvbGxhcHNlOyBlbXB0 kF4wWPbflzinj9rylakb Zon9zk19dLQtu8W7pYJ5 D9GtleG6HZZskJFq WhbcwSMRsM3pixemq5uv afbvLiTvCJEmOVy7HOt7 WLOddOgrByLrSS19VTW0 MADtsaDlO1AfLRVp lGtiMwM0i4U4Yx5RQ5WB DkuzJ9YVTNXKOQapjZZ+ HL22nl01U2WjMrypTsx8 ZSXiMQY0eVV8nI6p UCZbKDlwa7U0vPU9C2Ub puQvel9pi0agXCZuJDiw I97luHCku0I3WALifHU4 NYSqsPhmAmGntA50 Oyc+MRLwvFvhn7VzLlqk v6hhe5rppGj4IpkrKNMj opIugVztVFN3m1McIf6g NVJxfTL9wUE9qB8s JdJbKoE2QNixX936YpSn yLXxAyczQ71bL7HeqQG+ IPVvOkp5HUXpmBmmVC2n A6YnUUYztafalJDj zNgqYU1fNMQddicnXEUv hM0qKTNhI4u2IhGaDrI2 DMcsV3WiHFKaknmkKc34 gP6vKoVhNvE1VSvo V2UsgrJ5ZFAcrNEtQDvr AKY7C95yz4R4NKHnMVGw LWH9mWT3eY3aiErpjykc bGVmdDsgdmVydGlj LTgzAAfpE712BVYzxQba PkNvZGluZyBEYXRlOiAg MDYvMjAvMjAyNDwvdGQ+ EZToFNO7kJblWQYl vUPgXZngUa1fuWoioTla OI9zNVLxwaqkHTFwyT2p OJDbnIDvjTweJR0sHUCa vmfwk623LdEyLJD4 QWOshSWdK3CfvC9aLeBm LYNiFIYlD4BvfGWnEWst W276QBxgApU1TGMvovOv L5UkTDZllNitZfP4 r4J8Oe5Jv5FutajmG8Ss yCWuNfXpEfwbETl2I1Nl PjwvdHI+NW29IJCoBN79 SAn0EPV6pPobCKex BHTzV3OyfT5oArCdDWDv ZGRkOyc+PHRhYmxlIHdp ZHRoPScxMDAlJyBzdHls EN8wYq3cUXFdMOSt uMflmLYyXnQed2xdLSOc EVgePG2bfKweD0BcxCN7 JHXkw4h8Xc78J33iZ7Fx dXA+MZDyzBW0lNJ6 eF1zWbMhYtY1LWkjS712 PgTgdXMcIduuy5tgq4xe hWx3IvW4VRJebcYpkDhk BXW9v7XiZg26K53n IHdpZHRoPSIxNSUiIHZh qOfpkj9tvO6mWw6+PGNv rZP5bUI7zH8wXkWkUjA9 VVpnU525IqZgpDIe Kfrpb1wrp7eneYz9PkCx CSEnqmAvzNgjEUE9u7Sm Mk96T3HvgEmdw1JqIdy3 nu97pGXdl2X9zYB7 X3FdMLHjpgbiaHNmiBta UU7iDRCjvnyjWIGywX7p XMAyH9w8AbHgTmM7MYln R4YlvgZ5XBImkILa MPKvyDUSyY7aamwkf6tr nhjoYlBwPZJnOKc4GWw5 WGRryZpnLbKmXIU3DoG9 YQA3iRKugB0ngWjt stxvwQ7sTam+XFV6nRDu tRSDNS0iDhzmeWJ+PHRk OFH7uRcgASdmVNPbyG4x XFOcI3r2JsOkBjC4 VFwnV3LofiY2XBVjdPEe OWEwoCWJvM3qurysx0xw ugewDlLrNTRxQPp3AVa8 LWFsaWduOiBsZWZ0 GlL1TKP0aWXffT3xdGyb bswezJ0nTmn+QmlydGgg XOT8YHa7P4YjIms0YPGd wAebPC5bgDDaAMwm Fi8wnVfspDusPK2mQAMd jpiza645BjAkh0gcFWTz uDXsDQetJXZ7M58bn4Q0 ZINtMOHgXFW4bWR1 nF1dvIjzmzoefZSyjDna lhRkzLmmUDqwSNfbH105 TSUgoQitQtNeGUl6S7Ra Dst5ZAYbfDcpCM9e aEKuOCxnMi8gjXajgFin TV4yQHNhtyudu868EgOu d6ktUYLfwOCdAGihTAA0 O95pc0K8ENHrVDGu OTD6nRK4qD3boDfhnrmt bGVmdDsgdmVydGljYWwt SQkfO058FUUgwWwpDqZr lJm3U9DaKot6MKIv zExrWI2knBHgTSyeKl9n lElepHfxOU0mLWNjwmmi h421OrMyi6szEFXslBOq BWorVQS2W57yp5O1 MFLgBFExTUP1gLJ9gS9x bGlnbjogbGVmdDsgdmVy qXkwOJpmWMduG874MDUv cDsnPlBhdGllbnQg WOsdDMo1C1LkCtwgzRZ+ DJ90GCAoOR09rGFemGVn s7svcBz2DpVkWLKwYSW2 kVdkEBvjq1AlIVVo W32rfVSqk3V6JPApeFyr lYCrLnXgvAB4qT9wRSvb vslkt9sfnlnrJvghz5zu fw77zC47P01aWJyg ZHRoPSIzMCUiIHZhbGln rf3vpL7oMe1+PGNvbCB3 nLC7rD2nSCFmMoI3DOiq L625ZjFbcZIxWznk i1ykm1bcsIw2QeX4YIDz mkUbvRynUYJ7n4MrTm26 Z70aKJqyJTMqBYIsEDVp WDDorSaszd9zbG9p Ii8+WRVjsVW6bDW7mS4c YoMuPpA0QCcuU371HzFs fQMhUtwkB17jZ8PvsOS+ MHPcZcr5ENWzpFkf HR9qoDWvNPmpHz7hLNC2 DyDxWxMuOObtG4BvIJLk hutmsaeirIB6UALxDATl wU75Me2muSfmJOHq rUOWpD2cgnzoh8vzoxqy WlSwBIVrAJj5MWl7ZVWa dCunEnGwNTX0LlY1HBB4 aGJgzC6foFflxpfx fB6nZ8DjONYakrhnXb94 vU7yEwHhMvR6JMucHts+ EmYTFK3ZFwqfMrOCKI2w SzwvdGQ+PHRkIHN0 dQslXZsmBQRweH7xXEXm M9e0JqHzTwO6TLogJ4Ka LNCqdvkkJo54qE7vEgMy WcC5PSquW8NukjI9 OKAttYBsEFsaRFH0B74a t7O5JAHfFPCyMKX5lXR4 jX8lkCoyuztrxOJwjIqy dmVydGljYWwtYWxp S072JTVkaVamLpHqBcJ5 AkT8TTv9Y3ZsNon5UUWg lCvjNK7mpZHfBIdxDw9g lHjzsAewHJ2wZLIs gbexQOZauO4pPVVuuIBi dJxwAI9mLURgycmot849 NmDqGCO5LQIsqMCiM7Fm lC1mUsDhLVSdMVVi J8ByrSApGWcuE744OPvn XxZ3QAKxerRuP3LuXSEi hQirNsX5c1E5Hv96OXSS ZWFyczwvdGQ+PHRk WAU5jSwxWDxeHOFjwJ7a CJDuM6d6NaLgIzP0VFec U3NeBRNnnptaGl01fI8e SxDiUpC9UJhmW3Oh lyI6BTHoeRZwDVcnRJO9 A55hh1K5BSMtTGMwJEH1 tTW7fY1olGydxqssdTKn dDsgdmVydGljYWwt XBekS721OIDpxFvgVc8c mZK1F2PhOfl3EUDtnJwa FV6ucCVySEwcBy3iiLef qCmnRN6tLKOqmivx MAQcqH4lBZQfvSJozTji HH8wZHJkuqqjx430NvTg IFL0GPYhqEAsJ9GtsF5m LyTeXVNjCFNkD5Jo eKHsRQpsR950DCccYvW2 KZXyswVnF0CbFSZkhDwr ByD6o3I6Ua2MICcnFX0y czOsOJ6ovaM1F9Av PjwvdHI+MR91PFZcAH60 zDTwyTWkq0tjdVc5HoXf IKXsCUD1fCshKPqmm0Dg EZEiU19udKTlx7N7 IGNvbGxhcHNlOyBlbXB0 dW7sXQuqhbpmj7oerivg Pswaq0konr06qQ87F39i IHdpZHRoPSIzMCUi UZGppVdujd9raM9sVc2+ TPBgiPT5bGF0kR3sYuTe EbX3GNtdA620AkJgvAKn Qgwik9asy5ivpBz7 IjIwJSIgdmFsaWduPSJ0 o6OnOt06U63aQQimAOQb ETBuCMByQLFmeNpusa4k jO7oIu2+TX5wh8rm wz04oH12lCA+PHRkIHN0 cZylOWkwRKNssK7mKCau AsO7MWMpUbMwzI67nUUg YDlgDx9rjRnmiZsf KQ9uZMAtjmdmd511SeEj v3voRMDmdMGxYQgxPOY6 S42dc0A3HRAaXJLrMTC1 xVR7bJ4dhHhgrynp bGVmdDsgdmVydGljYWwt QKgwA558LSDtzPvkXtNh pMOgS5bqteHFZU6oXhor dGQ+EVFdLPG8bMkw NFbsEFGkiQ6tUDSuU1m9 JwFlHzZ5EEtoE6JgvmM8 BVRpbOAmNVLpbWIRiM5j kiphc4rrifsmDaHd NOAsSUo7EPo6WQKtzLbw GySrVUK4EzJ4TTG1gGCx lS7ncUwcaxojkS3qAqv+ RklOOjwvdGQ+PHRk MAR8yTomRYnwFBHenO3z ZMVlB7u0IhQbGgZ8YCis V3AenoF3EXLhoWZzOKZp qRJOhH5pjlsmk2ly uafaFmJrSBApINd1TWm4 WSEpaHdnImKcETZ7FrT4 BMO8uNChwX8kpYfblbya mY0rFzi+TVJOOjwv dGQ+VBZmDAV4tEsbLGgj FNAceL8rTRUsB9x5OsOr UzN7XNacS5OlqrS1AYLc aSPmWYWbdVTWcD6f fecrc4hxfvbzWqRlUKLd EUc3OMg0YEKjgFkfXyZq KZY0YxF3AUU2pVLgjY1g jQyemzsnsL2aHvr+ XPM6UAO8KQ11WC79K3Sp PjwvdGFibGU+PHRhYmxl IHdpZHRoPScxMDAlJyBz gHvvCD1lNw3sPPEm LWNvbGxhcHNlO (more content not included)... Normal [facility] Consent for Procedure/Surger yon 03-29-2024 Consent for Procedure/Surgery [id number] #1.00TIFF Normal [facility] Consent for Treatmenton 03-12 Consent for Treatment [id number] 4#1.00TIFF [facility] Discharge Instructionson Discharge Instructions [id number] #1.00TIFF [facility] IntraOperative Documentson 0 03-29-2024 IntraOperative Documents [id number] #1.00TIFF [facility] IntraOperative Documents [id number] #1.00TIFF [facility] Main OR Intraoperative Recor don 03-29-2024 Main OR Intraoperative Record IntraOp Document Type FTPM Summary Primary Physician: David Cao DO Finalized Date/Time: 03/29/24 10:37:02 Pt. Name: EBEN ARENAS/Sex: 1960 Male Med Rec #: [id number] Physician: David Cao DO Financial #: [id number] Pt. Type: P Room/Bed: / Admit/Disch: 03/29/24 08:40:32 - Institution: Case Times FTPM Entry 1 Patient Times In Room 03/29/24 10:13:00 Out Room 03/29/24 10:36:00 Procedure Times Start 03/29/24 10:16:00 Stop 03/29/24 10:35:00 Anesthesia Times Last Modified By: Palmer NIEVES, Flaquita Matute 03/29/24 10:36:57 Case Attendance FTPM Entry 1 Entry 2 Entry 3 Case Attendee David Cao DO, RN, Flaquita Roper RN, [place] Role Performed Surgeon - Primary Physician Scientist - Primary Scrub - Primary Time In 03/29/24 10:13:00 03/29/24 10:13:00 03/29/24 10:13:00 Time Out 03/29/24 10:36:00 03/29/24 10:36:00 03/29/24 10:36:00 Procedure LUMBAR RADIO FREQUENCY LUMBAR RADIO FREQUENCY LUMBAR RADIO FREQUENCY ABLATION(Bilateral) ABLATION(Bilateral) ABLATION(Bilateral) Comments Last Modified By: Palmer NIEVES, Flaquita Chakraborty RN, Flaquita Chakraborty RN, Flaquita Matute 03/29/24 10:36:57 03/29/24 10:36:57 03/29/24 10:36:57 Entry 4 Entry 5 Case Attendee Sonia VALDIVIA, Heavenly Rich Role Performed Sdet Sdet Time In 03/29/24 10:13:00 03/29/24 10:13:00 Time Out 03/29/24 10:36:00 03/29/24 10:36:00 Procedure LUMBAR RADIO FREQUENCY LUMBAR RADIO FREQUENCY ABLATION(Bilateral) ABLATION(Bilateral) Comments Last Modified By: Palmer NIEVES, Flaquita Chakraborty RN, Flaquita Matute 03/29/24 10:36:58 03/29/24 10:36:58 Perioperative Protocols FTPM Pre-Care Text: Implements protective measures prior to operative or invasive procedure, confirms identity before the operative or invasive procedure, verifies operative procedure, surgical site, and laterality Entry 1 Procedure(s) LUMBAR RADIO FREQUENCY Patient Identity Birthday, ID Band ABLATION(Bilateral) Verified (select at Check, Patient least 2): Participation Consents / H and P HandP, Surgery/Procedure Operative Site Present Verified Consent Marking Verified Surgical Site Yes Laterality Verified Yes Verified Procedure Verified Yes Correct Patient Yes Position Verified Availability Equipment, Medication, Prep Dry Yes Verified (If X-ray Applicable) PreOp Antibiotic No Time Out Palmer NIEVES, Enma Guzman RN, [place], David Cao DO, Roll RT, Daniel P Time Out Complete 03/29/24 10:13:00 Outcomes Met? Yes Last Modified By: Flaquita Chakraborty RN 03/29/24 10:14:58 Post-Care Text: The patient is free from signs and symptoms of injury caused by extraneous objects Allergy Information FTPM Pre-Care Text: Verifies allergies Entry 1 Allergies Reviewed? Yes Allergies Reviewed Self/Patient With Outcomes Met? Yes Last Modified By: Flaquita Chakraborty RN 03/29/24 10:09:52 Post-Care Text: The patient received appropriate medication(s) safely administered during the perioperative period Surgical Procedures FTPM Entry 1 Procedure Description Procedure LUMBAR RADIO FREQUENCY Modifiers Bilateral ABLATION Surgeon Description L4/5 + L5/S1 RFA Primary Procedure Yes Primary Surgeon David Cao DO 03/29/24 10:16:00 Stop 03/29/24 10:35:00 Anesthesia Type None Surgical Service Pain Management Wound Class 1 - Clean Last Modified By: Flaquita Chakraborty RN 03/29/24 10:36:59 General Case Data FTPM Pre-Care Text: Classifies surgical wound, implements aseptic technique, initiates traffic control Entry 1 Case Information OR Pain Proc Room Case Level Level 2 Wound Class 1 - Clean Specialty Pain Management Preop Diagnosis M47.816 Postop Same As Preop Yes Postop Diagnosis M47.816 Outcomes Met? Yes Last Modified By: Flaquita Chakraborty RN 03/29/24 10:15:09 Post-Care Text: The patient is free from signs and symptoms of infection Skin Assessment (Pre Procedure) FTPM Pre-Care Text: Implements protective measures to prevent skin/ tissue injury due to thermal or mechanical sources Evaluates for signs and symptoms of physical injury to skin and tissue Entry 1 Skin Integrity Intact, [place], Warm, and Skin Abnormality No Dry Outcomes Met? Yes Last Modified By: Flaquita Chakraborty RN 03/29/24 10:10:01 Post-Care Text: The patient is free from signs and symptoms of injury caused by extraneous objects Patient Positioning FTPM Pre-Care Text: Identifies physical alterations that require additional precautions for procedure-specific positioning, verifies presence of prosthetics or corrective devices, positions the patient, evaluates the patient for signs and symptoms of injury as a result of positioning Entry 1 Procedure LUMBAR RADIO FREQUENCY Body Position Prone ABLATION(Bilateral) Feet Uncrossed? Yes Left Arm Position Resting at Side Right Arm Position Resting at Side Left Leg Position Extended Right Leg Position (more content not included)... Normal [facility] Main OR Preoperative Recordo n 03-29-2024 Main OR Preoperative Record Holding Area Document Type FTPM Summary Primary Physician: David Cao DO Finalized Date/Time: 03/29/24 09:04:49 Pt. Name: EBEN ARENAS Vicky Cortez./Sex: 1960 Male Med Rec #: [id number] Physician: David Cao DO Financial #: [id number] Pt. Type: P Room/Bed: / Admit/Disch: 03/29/24 08:40:32 - Institution: Case Times Holding FTPM Pre-Care Text: Verifies consent for planned procedure, identifies individual values and wishes concerning care, includes family members in perioperative teaching Secures patient's records' belongings, and valuables, maintains patient's dignity and privacy, and maintains patient confidentiality Entry 1 In Holding 03/29/24 09:02:00 Outcomes Met? Yes Last Modified By: Margarita Russell RN 03/29/24 09:02:39 Post-Care Text: The patient participates in decisions affecting his or her perioperative plan of care The patient's right to privacy is maintained Surgery Checklist FTPM Entry 1 Patient Birthday, ID Band Procedure History and Physical, Identification: Check, Patient Verification: Surgical Consent, With Participation Patient NPO after Midnight: No Date/Time: 03/29/24 09:02:00 Results Reviewed 0700 muffin and coffee Personal Items N/A Comments: Comment: Complaints of Pain: Yes Pain Comment: 05/21 lower back pain Operative Site Yes Marked By: Dr. Cao Marking: Location: bilateral L4-S1 Availability Equipment, X-Ray Verified: Does Patient Smoke No Patient states Yes Comment - Adult [place]-fiance postop adult Supervision supervision available Case Cancelled in No Holding Area see comments below for reason Last Modified By: Margarita Russell RN 03/29/24 09:04:48 Finalized By: Margarita Russell RN Document Signatures Signed By: Margarita Russell RN 03/29/24 09:04 Normal [facility] Consultation Noteon 03-27-20 Consultation Note [id number] #1.00TIFF Normal [facility] Office/Clinic Note-Physician on 03-25-2024 Office/Clinic Note-Physician [id number] 6#1.00TIFF Normal [facility] CBC W Auto Differential pane l (Bld)on 03-22-2024 Basophils (Bld) [#/Vol] 0.06 10*3/uL Normal <0.11 [facility] Comment on above: Order Comment: Speci men Type: BLOOD SPECIMENOrdering Facility: [facility] Address: [address] [place] [address] Performed By: #### 5 7021-8 ####[facility] LABCLIA [id number] [place] [address] Basophils/100 WBC (Bld) 0.9 % Normal [facility] Comment on above: Order Comment: Speci men Type: BLOOD SPECIMENOrdering Facility: [facility] Address: [address] [place] [address] Performed By: #### 5 7021-8 ####[facility] LABIA [id number] [place] [address] Differential cell count method Nom (Bld) Auto Normal [facility] Comment on above: Order Comment: Speci men Type: BLOOD SPECIMENOrdering Facility: [facility] Address: [address] [place] [address] Performed By: #### 5 7021-8 ####[facility] LABCLIA [id number] [place] [address] Eosinophils (Bld) [#/Vol] 0.48 10*3/uL High <0.46 [facility] Comment on above: Order Comment: Speci men Type: BLOOD SPECIMENOrdering Facility: [facility] Address: [address] [place] [address] Performed By: #### 5 7021-8 ####[facility] LABCLIA [id number] [place] [address] Eosinophils/100 WBC (Bld) 7.6 % Normal [facility] Comment on above: Order Comment: Speci men Type: BLOOD SPECIMENOrdering Facility: [facility] Address: [address] [place] [address] Performed By: #### 5 7021-8 ####[facility] LABCLIA [id number] [place] [address] Erythrocyte distribution width (RBC) [Ratio] 12.6 % Normal 11.5-15.0 [facility] Comment on above: Order Comment: Speci men Type: BLOOD SPECIMENOrdering Facility: [facility] Address: [address] [place] [address] Performed By: #### 5 7021-8 ####[facility] LABCLIA [id number] [place] [address] Hematocrit (Bld) [Volume fraction] 43.4 % Normal 39.0-51.0 [facility] Comment on above: Order Comment: Speci men Type: BLOOD SPECIMENOrdering Facility: [facility] Address: [address] [place] [address] Performed By: #### 5 7021-8 ####[facility] LABCLIA [id number] [place] [address] Hemoglobin (Bld) [Mass/Vol] 15.3 g/dL Normal 13.0-17.0 [facility] Comment on above: Order Comment: Speci men Type: BLOOD SPECIMENOrdering Facility: [facility] Address: [address] [place] [address] Performed By: #### 5 7021-8 ####[facility] LABIA [id number] [place] [address] Immature granulocytes (Bld) [#/Vol] 10*3/uL Normal <0.10 [facility] Comment on above: Order Comment: Speci men Type: BLOOD SPECIMENOrdering Facility: [facility] Address: [address] [place] [address] Performed By: #### 5 7021-8 ####[facility] LABCLIA [id number] [place] [address] Immature granulocytes/100 WBC (Bld) 0.3 % Normal [facility] Comment on above: Order Comment: Speci men Type: BLOOD SPECIMENOrdering Facility: [facility] Address: [address] [place] [address] Performed By: #### 5 7021-8 ####[facility] LABCLIA [id number] [place] [address] Lymphocytes (Bld) [#/Vol] 1.50 10*3/uL Normal 1.00-4.00 [facility] Comment on above: Order Comment: Speci men Type: BLOOD SPECIMENOrdering Facility: [facility] Address: [address] [place] [address] Performed By: #### 5 7021-8 ####[facility] LABCLIA [id number] [place] [address] Lymphocytes/100 WBC (Bld) 23.7 % Normal [facility] Comment on above: Order Comment: Speci men Type: BLOOD SPECIMENOrdering Facility: [facility] Address: [address] [place] [address] Performed By: #### 5 7021-8 ####[facility] LABCLIA [id number] [place] [address] MCH (RBC) [Entitic mass] 33.3 pg Normal 26.0-34.0 [facility] Comment on above: Order Comment: Speci men Type: BLOOD SPECIMENOrdering Facility: [facility] Address: [address] [place] [address] Performed By: #### 5 7021-8 ####[facility] LABCLIA [id number] [place] [address] MCHC (RBC) [Mass/Vol] 35.3 g/dL Normal 30.5-36.0 [facility] Comment on above: Order Comment: Speci men Type: BLOOD SPECIMENOrdering Facility: [facility] Address: [address] [place] [address] Performed By: #### 5 7021-8 ####[facility] LABCLIA [id number] [place] [address] MCV (RBC) [Entitic vol] 94.3 fL Normal 80.0-100.0 [facility] Comment on above: Order Comment: Speci men Type: BLOOD SPECIMENOrdering Facility: [facility] Address: [address] [place] [address] Performed By: #### 5 7021-8 ####[facility] LABCLIA [id number] [place] [address] Monocytes (Bld) [#/Vol] 0.76 10*3/uL Normal <0.87 [facility] Comment on above: Order Comment: Speci men Type: BLOOD SPECIMENOrdering Facility: [facility] Address: [address] [place] [address] Performed By: #### 5 7021-8 ####[facility] LABCLIA [id number] [place] [address] Monocytes/100 WBC (Bld) 12.0 % Normal [facility] Comment on above: Order Comment: Speci men Type: BLOOD SPECIMENOrdering Facility: [facility] Address: [address] [place] [address] Performed By: #### 5 7021-8 ####[facility] LABCLIA [id number] [place] [address] Neutrophils (Bld) [#/Vol] 3.52 10*3/uL Normal 1.45-7.50 [facility] Comment on above: Order Comment: Speci men Type: BLOOD SPECIMENOrdering Facility: [facility] Address: [address] [place] [address] Performed By: #### 5 7021-8 ####[facility] LABCLIA [id number] [place] [address] Neutrophils/100 WBC (Bld) 55.5 % Normal [facility] Comment on above: Order Comment: Speci men Type: BLOOD SPECIMENOrdering Facility: [facility] Address: [address] [place] [address] Performed By: #### 5 7021-8 ####[facility] LABCLIA [id number] [place] [address] Nucleated RBC (Bld) [#/Vol] 10*3/uL Normal <0.01 [facility] Comment on above: Order Comment: Speci men Type: BLOOD SPECIMENOrdering Facility: [facility] Address: [address] [place] [address] Performed By: #### 5 7021-8 ####[facility] LABCLIA [id number] [place] [address] Nucleated RBC/100 WBC (Bld) [Ratio] 0.0 /100 WBC Normal [facility] Comment on above: Order Comment: Speci men Type: BLOOD SPECIMENOrdering Facility: [facility] Address: [address] [place] [address] Performed By: #### 5 7021-8 ####[facility] LABCLIA [id number] [place] [address] Platelet mean volume (Bld) [Entitic vol] 12.2 fL Normal 9.0-12.7 [facility] Comment on above: Order Comment: Speci men Type: BLOOD SPECIMENOrdering Facility: [facility] Address: [address] [place] [address] Performed By: #### 5 7021-8 ####[facility] LABCLIA [id number] [place] [address] Platelets (Bld) [#/Vol] 149 10*3/uL Low 150-400 [facility] Comment on above: Order Comment: Speci men Type: BLOOD SPECIMENOrdering Facility: [facility] Address: [address] [place], [place] [address] Performed By: #### 5 7021-8 ####[facility] LABIA [id number] [place] [address] RBC (Bld) [#/Vol] 4.60 10*6/uL Normal 4.20-6.00 [facility] Comment on above: Order Comment: Speci men Type: BLOOD SPECIMENOrdering Facility: [facility] Address: [address] [place], [place] [address] Performed By: #### 5 7021-8 ####[facility] LABIA [id number] [place] [address] WBC (Bld) [#/Vol] 6.34 10*3/uL Normal 3.70-11.00 [facility] Comment on above: Order Comment: Speci men Type: BLOOD SPECIMENOrdering Facility: [facility] Address: [address] [place], [place] [address] Performed By: #### 5 7021-8 ####[facility] [id number] [place] [address] CNOVSPon 03-22-2024 [facility] Visit (SP) Office ([place]) EBEN ARENAS ([id number]) 1960 M Date Time Provider Department 03/22/24 1:30 PM ANSELMO MCPHERSON During your visit today, we recorded the following information about you: Temperature Pulse Respiration Blood pressure 97.1 degrees 78/minute 18/minute 123/70 Weight Height 130 kg 1.772 m Anselmo Mcpherson MD 03/22/2024 1:48 PM Signed PATIENT NAME: Eben Arenas CLINIC NO.: [id number] ATTENDING PHYSICIAN: Anselmo Mcpherson MD DATE OF SERVICE: March 22, 2024 Some of the elements of this note have been copied from my previous progress note dated 2023. All the information has been reviewed carefully. Dear Dr. APONTE here is an update on a follow up visit on male Eben Arenas at the clinic March 22, 2024 Diagnosis: 1. 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 HPI: Eben Arenas is a 63 year old year old male here for follow up. Doing well and has been off the testosterone and planning on restarting at half the dose PAST MEDICAL HISTORY Diagnosis Date Former smoker HLD (hyperlipidemia) CHITIMACHA (hard of hearing) HTN (hypertension) Long-term use of aspirin therapy OA (osteoarthritis) of knee Polycythemia S/P right knee arthroscopy TIA (transient ischemic attack) Social History Tobacco Use Smoking status: Former Passive exposure: Past Smokeless tobacco: Former Types: Chew Quit date: 09/12/2016 Tobacco comments: QUIT 15 YEARS AGO Vaping Use Vaping Use: Never used Substance Use Topics Alcohol use: Yes Comment: rare Drug use: No FAMILY HISTORY Problem Relation Age of Onset Lipids Mother Hypertension Mother Hypertension Father Lipids Father Past medical, social and family history reviewed without any changes. REVIEW OF SYSTEMS GENERAL: No weight loss, malaise or fevers. No night sweats. HEENT: Negative for headaches, No changes in hearing or vision, no nose bleeds or other nasal problems. RESPIRATORY: Negative for cough, wheezing and shortness of breath CARDIOVASCULAR: Negative for chest pain, leg swelling and palpitations GI: Negative for abdominal discomfort, blood in stools or black stools and change in bowel habits : Negative for dysuria, frequency and incontinence MUSCULOSKELETAL: Negative for joint pain or swelling, back pain, and muscle pain. SKIN: Negative for lesions, rash, and itching. HEMATOLOGY/LYMPHOLOG Y Negative for prolonged bleeding, bruising easily, and swollen nodes. NEURO: Negative for numbness or tingling of hands/feet. No weakness. PHYSICAL EXAMINATION: BP 123/70 Pulse 78 Temp (Src) 97.1 (Temporal) Resp 18 Ht 5' 9.764 (1.77m) Wt 286 lb 9.6 oz (130.0kg) SpO2 94% BMI 41.40 kg/(m2). Wt 130.2 kg (287 lb) BMI 41.46 kg/m2 Last 3 Encounter Wt Readings: Date: Wt: 08/15/2019 130.2 kg (287 lb) 07/18/2019 127.4 kg (280 lb 12.8 oz) 09/19/2016 117.9 kg (260 lb) General appearance:ECOG PERFORMANCE STATUS: 0- Fully active, able to carry on all pre-disease performance w/o restriction. Patient in NAD. Skin: Skin color, texture, turgor normal. No rashes or lesions. Eyes: Anicteric sclera. Pupils are equally round and reactive to light. Extraocular movements are intact. Lymph Nodes: No cervical, supraclavicular, axillary or inguinal adenopathy. Oropharynx: Lips, mucosa, and tongue normal. Back: No pain to percussion. Negative SLR test Lungs clear to auscultation, No wheezing or rhonchi Heart: RRR without murmur, gallop, or rubs. Abdomen soft, non-tender. No masses, organomegaly Extremities: No deformities. No edema Neuro: Gait and speech normal. Reflexes normal and symmetric. Muscular strength intact. Sensation grossly intact. Rectal: Deferred : Deferred LABS: Glucose (mg/dL) Date Value 2023 135 10/21/2019 Requisitioning entry error Potassium (mmol/L) Date Value 2023 3.8 10/21/2019 Requisitioning entry error Sodium (mmol/L) Date Value 2023 141 10/21/2019 Requisitioning entry error Chloride (mmol/L) Date Value 2023 108 10/21/2019 Requisitioning entry error CO2 (mmol/L) Date Value 2023 23 10/21/2019 Requisitioning entry error Creatinine (mg/dL) Date Value 2023 1.01 10/21/2019 Requisitioning entry error BUN (mg/dL) Date Value 2023 12 10/21/2019 Requisitioning entry error Anion Gap (mmol/L) Date Value 2023 10 10/21/2019 Requisitioning entry error Calcium (mg/dL) Date Value 10/21/2019 Requisitioning entry error Calcium, Total (mg/dL) Date Value 2023 9.0 Protein, Total (g/dL) Date Value 2023 6.4 10/21/2019 Requisitioning entry error Albumin (g/dL) Date Value 2023 3.9 10/21/2019 Requisitioning entry error Biliru (more content not included)... Normal [facility] Comprehensive metabolic 2000 panelon 03-22-2024 Albumin [Mass/Vol] 4.2 g/dL Normal 3.9-4.9 [facility] Comment on above: Order Comment: Speci men Type: BLOOD SPECIMENOrdering Facility: [facility] Address: [address] [place] [address] Performed By: #### 2 4323-8 ####[facility] LABCLIA [id number] [place] [address] ALP [Catalytic activity/Vol] 100 U/L Normal 38-113 [facility] Comment on above: Order Comment: Speci men Type: BLOOD SPECIMENOrdering Facility: [facility] Address: [address] [place] [address] Performed By: #### 2 4323-8 ####[facility] LABCLIA [id number] [place] [address] ALT [Catalytic activity/Vol] 32 U/L Normal 10-54 [facility] Comment on above: Order Comment: Speci men Type: BLOOD SPECIMENOrdering Facility: [facility] Address: [address] [place] [address] Performed By: #### 2 4323-8 ####[facility] LABCLIA [id number] [place] [address] Anion gap [Moles/Vol] 6 mmol/L Low 8-15 [facility] Comment on above: Order Comment: Speci men Type: BLOOD SPECIMENOrdering Facility: [facility] Address: [address] [place] [address] Performed By: #### 2 4323-8 ####[facility] LABCLIA [id number] [place] [address] AST [Catalytic activity/Vol] 26 U/L Normal 14-40 [facility] Comment on above: Order Comment: Speci men Type: BLOOD SPECIMENOrdering Facility: [facility] Address: [address] [place] [address] Performed By: #### 2 4323-8 ####[facility] LABCLIA [id number] [place] [address] Bilirubin [Mass/Vol] 0.6 mg/dL Normal 0.2-1.3 [facility] Comment on above: Order Comment: Speci men Type: BLOOD SPECIMENOrdering Facility: [facility] Address: [address] [place] [address] Performed By: #### 2 4323-8 ####[facility] LABCLIA [id number] [place] [address] Calcium [Mass/Vol] 9.9 mg/dL Normal 8.5-10.2 [facility] Comment on above: Order Comment: Speci men Type: BLOOD SPECIMENOrdering Facility: [facility] Address: [address] [place] [address] Performed By: #### 2 4323-8 ####[facility] LABCLIA [id number] [place] [address] Chloride [Moles/Vol] 104 mmol/L Normal 98-107 [facility] Comment on above: Order Comment: Speci men Type: BLOOD SPECIMENOrdering Facility: [facility] Address: [address] [place] [address] Performed By: #### 2 4323-8 ####[facility] LABCLIA [id number] [place] [address] CO2 [Moles/Vol] 29 mmol/L Normal 22-30 [facility] Comment on above: Order Comment: Speci men Type: BLOOD SPECIMENOrdering Facility: [facility] Address: [address] [id number] Performed By: #### 2 4323-8 ####[facility] LABCLIA [id number] [place] [address] Creatinine [Mass/Vol] 0.91 mg/dL Normal 0.73-1.22 [facility] Comment on above: Order Comment: Speci men Type: BLOOD SPECIMENOrdering Facility: [facility] Address: [address] [place] [address] Performed By: #### 2 4323-8 ####[facility] LABCLIA [id number] [place] [address] Creatinine and Glomerular filtration rate.predicted panel (S/P/Bld) 94 mL/min/1.73m??? Normal >=60 [facility] Comment on above: Order Comment: Speci men Type: BLOOD SPECIMENOrdering Facility: [facility] Address: [address] [place] [address] Result Comment: Nyla mated Glomerular Filtration Rate (eGFR) is calculated using the 2020 CKD-EPI creatinine equation. This equation utilizes serum creatinine, sex, and age as parameters. The creatinine assay has traceable calibration to isotope dilution-mass spectrometry. Refer to KDIGO guidelines for clinical interpretation. In patients with unstable renal function, e.g. those with acute kidney injury, the eGFR may not accurately reflect actual GFR. Performed By: #### 2 4323-8 ####[facility] LABCLIA [id number] [place] [address] Glucose [Mass/Vol] 189 mg/dL High 74-99 [facility] Comment on above: Order Comment: Speci men Type: BLOOD SPECIMENOrdering Facility: [facility] Address: [address] [place] [address] Result Comment: The [place] [employer] (ADA) provides guidance for cutoff values for fasting glucose and random glucose. The ADA defines fasting as no caloric intake for at least 8 hours. Fasting plasma glucose results between 100 to 125 mg/dL indicate increased risk for diabetes (prediabetes). Fasting plasma glucose results greater than or equal to 126 mg/dL meet the criteria for diagnosis of diabetes. In the absence of unequivocal hyperglycemia, results should be confirmed by repeat testing. In a patient with classic symptoms of hyperglycemia or hyperglycemic crisis, random plasma glucose results greater than or equal to 200 mg/dL meet the criteria for diagnosis of diabetes. Reference: Standards of Medical Care in Diabetes 2016, [place] [employer]. Diabetes Care. 2016.39(Suppl 1). Performed By: #### 2 4323-8 ####[facility] LABCLIA [id number] [place] [address] Potassium [Moles/Vol] 4.0 mmol/L Normal 3.7-5.1 [facility] Comment on above: Order Comment: Speci men Type: BLOOD SPECIMENOrdering Facility: [facility] Address: [address] [place] [address] Performed By: #### 2 4323-8 ####[facility] LABCLIA [id number] [place] [address] Protein [Mass/Vol] 6.8 g/dL Normal 6.3-8.0 [facility] Comment on above: Order Comment: Speci men Type: BLOOD SPECIMENOrdering Facility: [facility] Address: [address] [place] [address] Performed By: #### 2 4323-8 ####[facility] LABCLIA [id number] [place] [address] Sodium [Moles/Vol] 139 mmol/L Normal 136-144 [facility] Comment on above: Order Comment: Speci men Type: BLOOD SPECIMENOrdering Facility: [facility] Address: [address] [place] [address] Performed By: #### 2 4323-8 ####[facility] LABCLIA [id number] [place] [address] Urea nitrogen [Mass/Vol] 11 mg/dL Normal 9-24 [facility] Comment on above: Order Comment: Speci men Type: BLOOD SPECIMENOrdering Facility: [facility] Address: [address] [place] [address] Performed By: #### 2 4323-8 ####[facility] LABCLIA [id number] [place] [address] Patient Correspondenceon Patient Correspondence [id number] 9#1.00TIFF Normal [facility] XR Chest 2 Viewson 4 XR Chest 2 Views Exam Date/Time: 03/01/2024 14:57 EDT Reason for Exam: R05.3 Report IMPRESSION: NO RADIOGRAPHIC EVIDENCE OF ACTIVE DISEASE IN THE CHEST. CLINICAL INFORMATION: R05.3 COMPARISON: SEPTEMBER 09, 2023 FINDINGS: Two views of the chest were obtained. Heart and mediastinum appear normal. The lungs appear clear. Visualized bony thorax and remainder of the chest appears unremarkable. Ordering Provider: JULIA MCDANIELS FINAL REPORT Dictated: 03/03/2024 5:55 pm Zohaib Curran MD Signed (Electronic Signature): 03/03/2024 5:55 pm Signed by: Zohaib Curran MD Transcribed by: KURT Technologist: KASHIF Technical Comments Radiation Dose: Ka,r in mGy = na DAP = na Normal [facility] CT Maxillofacial w/o Contras ton 03-02-2024 CT Maxillofacial w/o Contrast Exam Date/Time: 03/01/2024 15:24 EDT Reason for Exam: J32.9 Report IMPRESSION: MODERATE CHRONIC SINUS DISEASE IS SEEN WITH OBSTRUCTION OF THE OSTIOMEATAL COMPLEX ON THE RIGHT. THERE IS NO EVIDENCE FOR ACUTE FRACTURE.. EXAM: CT Maxillofacial w/o Contrast DATE: 03/01/2024 2:43 PM CLINICAL HISTORY: J32.9. COMPARISON: None available. TECHNIQUE: Spiral imaging was obtained of the without contrast. All CT scans at this facility use dose modulation, iterative reconstruction, and/or weight based dosing when appropriate to reduce radiation dose to as low as reasonably achievable. FINDINGS: Brain: Visualized portions of the brain appear unremarkable. Orbits: Unremarkable. Sinuses: Mucoperiosteal thickening is seen in the right maxillary sinus and ethmoid air cells. It is moderate. There is Mild mucoperiosteal thickening is seen in the left maxillary sinus and on polyp or mucocele is seen on the medial aspect. The ostiomeatal complex on the right is obstructed. There is mild thickening seen in the floor of the right maxillary sinus however there are apical radiolucency seen about the molars on the right. There are tip seen posteriorly in the maxilla on the left also. This appears to represent a second molar in the maxilla. Mastoid air cells: Clear mastoid air cells. Oropharynx: No significant tonsillar enlargement. Unremarkable. No peritonsillar abscess. Hypopharynx: Unremarkable. Visualized Larynx: Unremarkable. Limited visualization with visualized Normal epiglottis and aryepiglottic folds. Retropharyngeal space: Unremarkable. Report Bones/joints: No acute fracture or dislocation. Vasculature: No acute findings. Lymph nodes: No lymphadenopathy. Additional findings: Noncontributory. Ordering Provider: JULIA MCDANIELS FINAL REPORT Dictated: 03/02/2024 3:40 pm Marysol High Signed (Electronic Signature): 03/02/2024 3:40 pm Signed by: Marysol High Transcribed by: KURT Technologist: GUIDO [facility] Consent for Treatmenton 02-10 Consent for Treatment [id number] #1.00TIFF [facility] Insurance Correspondence Off iceon 02-23-2024 Insurance Correspondence Office [id number] 32#3.00TIFF [facility] Physician Orderon 02-22-2024 Physician Order [id number] 5#1.00TIFF [facility] Outside Records Officeon Outside Records Office [id number] 75#1.00TIFF [facility] Ambulatory Visit Summaryon 0 02-12-2024 Ambulatory Visit Summary EBEN ARENAS :1960 Visit Date:02/12/2024 Ambulatory Visit Instructions Your Diagnosis Epidermal cyst Your Care Team Attending Physician - SALVATORE JAVIER, Ruben Martinez Primary Care Physician - JULIA MCDANIELS MD This Is Your Medications List apixaban (Eliquis 5 mg oral tablet) baclofen (baclofen 10 mg Tab) hydrochlorothiazide- lisinopril (hydrochlorothiazide -lisinopril 12.5 mg-20 mg Tab) multivitamin with minerals niacin (niacin 500 mg ER Tab) sotalol (sotalol 80 mg Tab) triamcinolone nasal (Nasacort Allergy 24HR nasal spray) Procedures Performed Excision of cyst (02/04/2024), Arthroplasty of knee (08/05/2022), Cardioversion, Excision of lipoma, Radiofrequency ablation of medial branch of lumbar nerve using fluoroscopic guidance, Repair of meniscus, Tibial osteotomy. What to do next Scheduled Follow-Up Appointments Thursday. 2023 2:15 PM EDT With: Staci Kevin PA-C Where: [facility] Medications What How Much When Instructions Unchanged apixaban (Eliquis 5 mg oral tablet) 1 Tablets By Mouth 2 times a day Unchanged baclofen (baclofen 10 mg Tab) 1 Tablets By Mouth Every day as needed for Pain Unchanged hydrochlorothiazide- lisinopril (hydrochlorothiazide -lisinopril 12.5 mg-20 mg Tab) 1 Tablets By Mouth Every day Unchanged multivitamin with minerals Unchanged niacin (niacin 500 mg ER Tab) 1 Tablets By Mouth Every day Unchanged sotalol (sotalol 80 mg Tab) 0.5 Tablets By Mouth 2 times a day Unchanged triamcinolone nasal (Nasacort Allergy 24HR nasal spray) 1 Sprays Nasal Inhalation Every day as needed for Allergy symptoms Allergies Ativan (Dizziness) LaMICtal (Agitation) Vytorin (Hives) Problems Ongoing - Any problem that you are currently receiving treatment for. Atrial fibrillation Bilateral stenosis of carotid arteries BMI 40.0-44.9, adult Epidermal cyst Erectile dysfunction History of transient ischemic attack HTN (hypertension) Hypercholesterolemia Intermittent claudication Lumbar spondylosis Morbid obesity Peripheral vascular disease Platelet disorder Seasonal allergic rhinitis Secondary polycythemia Type 2 diabetes mellitus Patient Survey You may receive a survey via text or e-mail asking about your office visit. Please share your experience with us by completing your survey. We appreciate your feedback and thank you for choosing us for your care. Normal [facility] Consent for Treatmenton Consent for Treatment [id number] #1.00TIFF Normal [facility] Consultation Noteon 02-12-20 Consultation Note Patient: EBEN ARENAS Age: 63 years Sex: Male : 1960 Associated Diagnoses: None Author: Staci Kevin PA-C Subjective Chief complaint 02/12/2024 14:12 EDT Back pain 02/12/2024 13:37 EDT post operative follow up . Patient is a 63-year-old male. He has a past medical history significant for lumbar spondylosis and chronic low back pain. Patient underwent bilateral L4-5 and L5-S1 facet medial branch block. This was done on 01/27/2024. It gave him 100% relief for 4 hours. The first 1 was done on 09/07/2023 and gave him 100% relief for a day. He is on Eliquis so he is no longer using Mobic. He is eager to get long-term relief of the low back pain. At this time, it is affecting his ambulatory status and his quality of life. Both medial branch blocks have worked well for him. Previous RFA also worked well for him and gave him 3 years of relief. Previous physical therapy did not help. At this time, he rates the back pain a 7/10 worse with any sort of ambulation or activity. Health Status Allergies: Allergic Reactions (Selected) Severity Not Documented Vytorin- Hives. Nonallergic Reactions (Selected) Severity Not Documented Ativan- Dizziness. LaMICtal- Agitation., Allergies (3) Active Severity Reaction Ativan Dizziness LaMICtal Agitation Vytorin Hives Current medications: (Selected) Documented Medications Documented Eliquis 5 mg oral tablet: 5 mg = 1 tab(s), Oral, BID, Refills(s) 0 Nasacort Allergy 24HR nasal spray: 1 spray(s), Nasal, Daily Allergy symptoms, Refill(s) 0 baclofen 10 mg Tab: 10 mg = 1 tab(s), Oral, Daily, PRN Pain, Refills(s) 0 hydrochlorothiazide- lisinopril 12.5 mg-20 mg Tab: 1 tab(s), Oral, Daily, Refill(s) 0, High blood pressure multivitamin with minerals: Refill(s) 0 niacin 500 mg ER Tab: 500 mg = 1 tab(s), Oral, Daily, Refills(s) 0, High cholesterol sotalol 80 mg Tab: 40 mg = 0.5 tab(s), Oral, BID Problem list: All Problems High iron content / SNOMED CT 739043442 / Confirmed Localized osteoarthritis of knees, bilateral / SNOMED CT 0774869580 / Confirmed Hypercholesteremia / SNOMED CT 48832146 / Confirmed Type 2 diabetes mellitus / SNOMED CT 233625082 / Confirmed Erectile dysfunction / SNOMED CT 0935095439 / Confirmed Hypercholesterolemia / SNOMED CT 82588389 / Confirmed Lumbar spondylosis / SNOMED CT 609187863 / Confirmed Morbid obesity / SNOMED CT 030150354 / Confirmed Peripheral vascular disease / SNOMED CT 8525657705 / Confirmed Platelet disorder / SNOMED CT 27584216 / Confirmed Seasonal allergic rhinitis / SNOMED CT 197700916 / Confirmed Secondary polycythemia / SNOMED CT 432969613 / Confirmed HTN (hypertension) / SNOMED CT 1954685562 / Confirmed BMI 40.0-44.9, adult / SNOMED CT 7412590958 / Confirmed Bilateral stenosis of carotid arteries / SNOMED CT 1490021000 / Confirmed Outside Source Comment: Last Assessment & Plan: Invalid Interpretation Code Carotid duplex US\.br\Intermi ttent claudication / SNOMED CT 763288257 / Confirmed\.br\ Outside Source Comment: Last Assessment & Plan: [facility] Comment on above: Result Comment: Elec tronically Signed By: Staci Kevin PA-C\.br\Date and Time Signed: 02/12/24 14:44 EDT General Surgery Office/Clini c Noteon 02-12-2024 General Surgery Office/Clinic Note Chief Complaint post operative follow up HPI Staff 8 day post operative follow up post excisional biopsies epidermal cysts upper and lower back. Denies discomfort, no use of pain medication. Denies bleeding or drainage. Sutures intact. History of Present Illness 8 days s/p excisional biopsy epidermal cysts of upper back x 2; pathology consistent with epidermal cysts. doing well, mild itching, no drainage. Review of Systems ROS - Provider Constitutional: no fever, no sweats, no weight loss. Eyes: no glasses, no blurred vision, no visual loss. ENMT: no dentures, no hoarseness, no swallowing difficulties, no hearing loss, no ear infection(s), no nose bleeds. Cardiovascular: normal blood pressure, no chest pain, regular heartbeat, no heart murmur. Respiratory: no shortness of breath, no cough, no asthma, no wheezing. Gastrointestinal: no nausea, no vomiting, no diarrhea, no constipation, no blood in stool, no change in bowel habits, no abdominal pain, no hepatitis. Genitourinary: no kidney stones, no urine infection, no dysuria. Musculoskeletal: no pain, no weakness. Skin: no changing moles, no rash, no skin lumps. Neurologic: no seizures, no epilepsy, no headache. Psychiatric: no emotional or psychiatric problem. Heme/Lymph: no bleeding problems, no anemia, no blood clots, no transfusions. Allergy/Immunologic: no swollen lymph nodes/glands, no IV drug abuse. Other: Additional ROS info: Except as noted in the above Review of Systems and in the History of Present Illness, all other systems have been reviewed and are negative or noncontributory. Physical Exam skin: incisions healing well; mild erythema around sutures, no drainage or ecchymoses. Assessment/Plan 1. Epidermal cyst (L72.0: Epidermal cyst) doing well, sutures removed, call with problems/questions. Follow-up With When Contact Information SALVATORE JAVIER, OLIMPIA Wilcox Only if needed [address] [place] [address]- Additional Instructions: Problem List/Past Medical History Ongoing Atrial fibrillation Bilateral stenosis of carotid arteries BMI 40.0-44.9, adult Epidermal cyst Erectile dysfunction History of transient ischemic attack HTN (hypertension) Hypercholesterolemia Intermittent claudication Lumbar spondylosis Morbid obesity Peripheral vascular disease Platelet disorder Seasonal allergic rhinitis Secondary polycythemia Type 2 diabetes mellitus Historical No qualifying data Procedure/Surgical History Excision of cyst (02/04/2024), Arthroplasty of knee (08/05/2022), Cardioversion, Excision of lipoma, Radiofrequency ablation of medial branch of lumbar nerve using fluoroscopic guidance, Repair of meniscus, Tibial osteotomy. Medications baclofen 10 mg Tab, 10 mg= 1 tab(s), Oral, Daily, PRN Eliquis 5 mg oral tablet, 5 mg= 1 tab(s), Oral, BID hydrochlorothiazide- lisinopril 12.5 mg-20 mg Tab, 1 tab(s), Oral, Daily multivitamin with minerals Nasacort Allergy 24HR nasal spray, 1 spray(s), Nasal, Daily, PRN niacin 500 mg ER Tab, 500 mg= 1 tab(s), Oral, Daily sotalol 80 mg Tab, 40 mg= 0.5 tab(s), Oral, BID Allergies Ativan (Dizziness) LaMICtal (Agitation) Vytorin (Hives) Social History Alcohol Current, Liquor, Daily, 07/18/2022 Substance Abuse - Denies Substance Abuse, 07/18/2022 Tobacco Former smoker, quit more than 30 days ago Tobacco Use:. Former smokeless tobacco user, quit more than 30 days ago Smokeless Tobacco Use:. Oral, 1.5 per day. Started age 18.0 Years. Stopped age 38 Years., 01/28/2024 Family History Alzheimer's disease: Mother. Bypass: Mother. COPD: Father.Negative: Mother. Immunizations Vaccine Date Status Comments SARS-CoV-2 (COVID-19) mRNA BNT-162b2 vax 08/24/2021 Recorded 2024-01-15: TPV60 SARS-CoV-2 (COVID-19) mRNA BNT-162b2 vax 08/03/2021 Recorded 2024-01-15: TPV60 Normal [facility] Comment on above: Result Comment: Elec tronically Signed By: SALVATORE JAVIER, Ruben Castorena\Date and Time Signed: 02/12/24 14:10 EDT Office/Clinic Note-Physician on 02-12-2024 Office/Clinic Note-Physician [id number] 9#1.00TIFF [facility] Patient Correspondenceon Patient Correspondence [id number] 3#1.00TIFF [facility] Patient Correspondence [id number] 5#1.00TIFF [facility] Patient Correspondence [id number] 5#1.00TIFF Normal [facility] Patient History Officeon Patient History Office [id number] 2#1.00TIFF Normal [facility] BMPon 02-10-2024 Anion gap [Moles/Vol] 11 mmol/L Normal 6-16 [facility] Comment on above: Performed By: #### 2 479150, [id number], [id number] #### [facility] [address] [place] [address] Calcium [Mass/Vol] 9.4 mg/dL Normal 8.9-11.1 [facility] Comment on above: Performed By: #### 2 429214, 5962730, [id number] #### [facility] [address] [place] [address] Chloride [Moles/Vol] 105 mmol/L Normal 101-111 [facility] Comment on above: Performed By: #### 2 683548, 7822611, [id number] #### [facility] [address] [place] [address] CO2 [Moles/Vol] 29 mmol/L Normal 21-31 [facility] Comment on above: Performed By: #### 2 982228, 4327686, [id number] #### [facility] [address] [place] [address] Creatinine [Mass/Vol] 0.8 mg/dL Normal 0.5-1.3 [facility] Comment on above: Performed By: #### 2 813423, 4533172, [id number] #### [facility] [address] [place] [address] Glucose [Mass/Vol] 121 mg/dL Normal 55-199 [facility] Comment on above: Performed By: #### 2 582643, 0751828, [id number] #### [facility] [address] [place] [address] Potassium [Moles/Vol] 4.1 mmol/L Normal 3.5-5.3 [facility] Comment on above: Performed By: #### 2 362003, 3346527, [id number] #### [facility] [address] [place] [address] Sodium [Moles/Vol] 141 mmol/L Normal 135-145 [facility] Comment on above: Performed By: #### 2 907148, 4220541, [id number] #### [facility] [address] [place] [address] Urea nitrogen [Mass/Vol] 10 mg/dL Normal 5-21 [facility] Comment on above: Performed By: #### 2 791766, 6809484, [id number] #### [facility] [address] [place] [address] Urea nitrogen/Creatinine [Mass ratio] 12 No Units Normal 10-20 [facility] Comment on above: Performed By: #### 2 025108, 3950756, [id number] #### [facility] [address] [place] [address] CBC w/ Auto Diffon 4 Basophils/100 WBC (Bld) 0.9 % Normal 0.0-2.0 [facility] Comment on above: Performed By: #### 2 434462, 1186523, [id number] #### [facility] [address] [place] [address] Basophils/Leukocytes Auto (Bld) [Pure # fraction] 0.1 E9/L Normal 0.0-0.2 [facility] Comment on above: Performed By: #### 2 369571, 3630520, [id number] #### [facility] [address] [place] [address] Eosinophils (Bld) [#/Vol] 0.7 E9/L High 0.0-0.5 [facility] Comment on above: Performed By: #### 2 187532, 2149181, [id number] #### [facility] [address] [place] [address] Eosinophils/100 WBC (Bld) 10.8 % High 0.0-8.0 [facility] Comment on above: Performed By: #### 2 094517, 5690831, [id number] #### [facility] [address] [place] [address] Erythrocyte distribution width (RBC) [Ratio] 14.2 % Normal 10.9-14.2 [facility] Comment on above: Performed By: #### 2 256250, 9159214, [id number] #### [facility] [address] [place] [address] Hematocrit (Bld) [Volume fraction] 47.2 % Normal 37.7-49.0 [facility] Comment on above: Performed By: #### 2 423076, 8276979, [id number] #### [facility] [address] [place] [address] Hemoglobin (Bld) [Mass/Vol] 15.9 g/dL Normal 13.5-17.5 [facility] Comment on above: Performed By: #### 2 782585, 1297930, [id number] #### [facility] [address] [place] [address] Lymphocytes (Bld) [#/Vol] 1.8 E9/L Normal 1.0-4.0 [facility] Comment on above: Performed By: #### 2 388987, 5596644, 34367811 #### [facility] [address] [place] [address] Lymphocytes/100 WBC (Bld) 27.9 % Normal 14.0-50.0 [facility] Comment on above: Performed By: #### 2 010223, 9902475, 99034712 #### [facility] [address] [place] [address] MCH (RBC) [Entitic mass] 32.5 pg Normal 27.0-34.0 [facility] Comment on above: Performed By: #### 2 109175, 7566991, 13942377 #### [facility] [address] [place] [address] MCHC (RBC) [Mass/Vol] 33.8 g/dL Normal 31.4-36.0 [facility] Comment on above: Performed By: #### 2 514059, 5329459, [id number] #### [facility] [address] [place] [address] MCV (RBC) [Entitic vol] 96.3 fL Normal 80.0-100.0 [facility] Comment on above: Performed By: #### 2 949278, 7091452, 15934974 #### [facility] [address] [place] [address] Monocytes (Bld) [#/Vol] 0.7 E9/L Normal 0.2-1.0 [facility] Comment on above: Performed By: #### 2 033840, 7665507, 56806341 #### [facility] [address] [place] [address] Neutrophils (Bld) [#/Vol] 3.2 E9/L Normal 2.0-7.5 [facility] Comment on above: Performed By: #### 2 487041, 0865002, [id number] #### [facility] [address] [place] [address] Neutrophils/100 WBC (Bld) 49.2 % Normal 36.0-75.0 [facility] Comment on above: Performed By: #### 2 195967, 7160248, [id number] #### [facility] [address] [place] [address] Platelet 155.0 E9/L Normal 150.0-500.0 [facility] Comment on above: Performed By: #### 2 443850, 4512676, [id number] #### [facility] [address] [place] [address] Platelet mean volume (Bld) [Entitic vol] 10.4 fL Normal 6.4-10.8 [facility] Comment on above: Performed By: #### 2 390028, 1718369, [id number] #### [facility] [address] [place] [address] RBC (Bld) [#/Vol] 4.9 E12/L Normal 4.3-5.9 [facility] Comment on above: Performed By: #### 2 820018, 7192151, 18979291 #### [facility] [address] [place] [address] WBC corrected for nucl RBC Auto (Bld) [#/Vol] 6.4 E9/L Normal 4.0-11.0 [facility] Comment on above: Result Comment: Slid e review performed Performed By: #### 2 694443, 8539216, [id number] #### [facility] [address] [place] [address] CHEMISTRYOrdered By: SYSTEM SYSTEM on 02-10-2024 Anion gap [Moles/Vol] 11 mmol/L Normal 6 - 16 mEq/L R emisol Chem Calcium [Mass/Vol] 9.4 mg/dL Normal 8.9 - 11. 1 mg/dL Remisol Chem Chloride [Moles/Vol] 105 mmol/L Normal 101 - 1 11 mmol/L Rem[facility] Chem CO2 [Moles/Vol] 29 mmol/L Normal 21 - 31 mmol/L Remis ol Chem Creatinine [Mass/Vol] 0.8 mg/dL Normal 0.5 - 1.3 mg/dL Remisol Chem eGFR 98 mL/min/1.73 m2 Normal >=59mL/min /1.7 3 m2 Rem[facility] Chem Glucose [Mass/Vol] 121 mg/dL Normal 55 - 199 mg/dL Re misol Chem Potassium [Moles/Vol] 4.1 mmol/L Normal 3.5 - 5.3 mmol/L Rem[facility] Chem Sodium [Moles/Vol] 141 mmol/L Normal 135 - 145 mmol/L [facility] Chem Urea nitrogen [Mass/Vol] 10 mg/dL Normal 5 - 21 mg/dL [facility] Chem Urea nitrogen/Creatinine [Mass ratio] 12 mg/mg Normal 10 - 20 [facility] Chem Consent for Treatmenton Consent for Treatment [id number] #1.00TIFF Normal [facility] HEMATOLOGYOrdered By: SYSTEM SYSTEM on 02-10-2024 Basophils/100 WBC (Bld) 0.9 % Normal 0.0 - 2.0 % Remisol Heme Basophils/Leukocytes Auto (Bld) [Pure # fraction] 0.1 E9/L Normal 0.0 - 0.2 E9/L Rem[facility] Heme Eosinophils (Bld) [#/Vol] 0.7 E9/L High 0.0 - 0.5 E9/L Rem[facility] Heme Eosinophils/100 WBC (Bld) 10.8 % High 0.0 - 8.0 % Rem[facility] Heme Erythrocyte distribution width (RBC) [Ratio] 14.2 % Normal 10.9 - 14.2 % [facility] Heme Hematocrit (Bld) [Volume fraction] 47.2 % Normal 37.7 - 49.0 % [facility] Heme Hemoglobin (Bld) [Mass/Vol] 15.9 g/dL Normal 13.5 - 17.5 gm/dL [facility] Heme Lymphocytes (Bld) [#/Vol] 1.8 E9/L Normal 1.0 - 4.0 E9/L [facility] Heme Lymphocytes/100 WBC (Bld) 27.9 % Normal 14.0 - 50.0 % Rem[facility] Heme MCH (RBC) [Entitic mass] 32.5 pg Normal 27.0 - 34.0 pg Rem[facility] Heme MCHC (RBC) [Mass/Vol] 33.8 g/dL Normal 31.4 - 36.0 gm/dL [facility] Heme MCV (RBC) [Entitic vol] 96.3 fL Normal 80.0 - 100.0 fL [facility] Heme Monocytes (Bld) [#/Vol] 0.7 E9/L Normal 0.2 - 1.0 E9 /L [facility]e Monocytes/100 WBC (Bld) 11.2 % Normal 4.0 - 14.0 % Rem[facility] Heme Neutrophils (Bld) [#/Vol] 3.2 E9/L Normal 2.0 - 7.5 E9/L [facility]e Neutrophils/100 WBC (Bld) 49.2 % Normal 36.0 - 75.0 % [facility] Platelet 155.0 E9/L Normal 150.0 - 500.0 E9/L [facility] Platelet mean volume (Bld) [Entitic vol] 10.4 fL Normal 6.4 - 10.8 fL [facility] RBC (Bld) [#/Vol] 4.9 E12/L Normal 4.3 - 5.9 E12/L [facility] WBC corrected for nucl RBC Auto (Bld) [#/Vol] 6.4 E9/L Normal 4.0 - 11.0 E9/L [facility] Comment on above: Result Comment: Slid e review performed Physician Orderon 02-10-2024 Physician Order [id number] 4#1.00TIFF Normal [facility] eGFRon 02-10-2024 eGFR 98 mL/min/1.73 m2 Normal >=59 [facility] Comment on above: Order Comment: Order added by Discern Expert. Performed By: #### 2 [id number], [id number], [id number] #### [facility] [address] [place] [address] IntraOperative Documentson 0 02-08-2024 IntraOperative Documents [id number] #1.00TIFF Normal [facility] Discharge Instructionson Discharge Instructions [id number] 1#1.00TIFF Normal [facility] IntraOperative Documentson 0 02-05-2024 IntraOperative Documents [id number] 8#1.00TIFF Normal [facility] Operative Reporton Operative Report SURGERY DATE: 02/04/2024 PREOPERATIVE DIAGNOSIS: Enlarging epidermal cysts of mid upper back POSTOPERATIVE DIAGNOSIS: Enlarging epidermal cysts of mid upper back OPERATION: Excisional biopsy of enlarging epidermal cysts of the upper mid back ANESTHESIA: Local with 0.5% Marcaine with epinephrine ESTIMATED BLOOD LOSS: Less than 5 mL INDICATIONS AND CONSENT: The patient is a 63-year-old male with multiple medical problems on Eliquis who has had enlarging epidermal cysts of the mid upper back. Indications, risks, benefits, and alternatives of proceeding with excisional biopsy under local anesthesia were explained extensively to the patient including risks of bleeding, infection, scarring, pain, recurrence, and need for further surgery. All of his questions were answered and informed consent was obtained. PROCEDURE: The patient was brought to the Operating Room and placed in the right lateral decubitus position. The areas were prepped and draped in the usual sterile fashion. He had held his Eliquis for two days prior to the procedure. The areas were anesthetized with 0.5% Marcaine with epinephrine. The lower incision was incised in an elliptical fashion and carried down through subcutaneous fat. A 7 mm epidermal cyst was excised and sent off to Pathology. The wound was irrigated. The subcutaneous tissue was reapproximated with interrupted 4-0 Monocryl suture. The skin was then closed with 4-0 nylon mattress and simple sutures. The upper incision was then excised and closed in an identical fashion. This was a 1 cm epidermal cyst. A sterile pressure dressing was applied. Sponge and needle counts were correct x2 per nursing personnel. The patient tolerated the procedure well and was sent back to the Recovery Room and discharged to home in good condition. Ruben Chase M.D. [facility] ca Dictated: 02/04/2024 [id number] Transcribed: 02/04/2024 cc:Julia Mcdaniels M.D. [facility] Comment on above: Result Comment: Elec tronically Signed By: SALVATORE JAVIER, Ruben Martinez\.br\Date and Time Signed: 02/05/24 06:56 EDT Pre-Op Checkliston 4 Pre-Op Checklist [id number] 7#1.00TIFF [facility] Consent for Treatmenton 01-11 Consent for Treatment [id number] #1.00TIFF [facility] Discharge Instructionson Discharge Instructions EBEN ARENAS :1960 Visit Date:02/04/2024 Inpatient Discharge Instructions Your Care Team Admitting Physician - Ruben CHASE MD Referring Physician - Ruben CHASE MD Reason for Your Visit EPIDERMAL CYST Your Diagnosis EIC (epidermal inclusion cyst) Tests Performed Pathology Tissue Exam -- Results Pending -- Please visit your patient portal for your results or contact your primary care physician. 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 What to do next Instructions From Your Doctor Event Name Event Result Discharge Instructions Freetext may shower tomorrow, remove dressing and leave open to air; no tub baths for 10 days; take tylenol as needed for pain; resume Eliquis tomorrow. Discharge Activity Resume normal activities in 24 hours Discharge Restrictions No restrictions Discharge Diet(s) Regular Call Your Doctor For Persistent or heavy bleeding, Temperature above 101.5 degrees, Redness, swelling, or pus at operative site, Severe pain at the operative site Wound Care Keep incision dry, Remove dressing as instructed Remove Dressing On 1 Discharge Instructions Discharge Instructions Previously Scheduled Follow-Up Appointments Thursday. 2023 1:40 PM EDT With: Ruben CHASE MD Where: [facility] General Surgery [facility] Comment on above: Result Comment: Elec tronically Signed By: Lucio NIEVES, Jenniffer Fu\.gila\Date and Time Signed: 02/04/24 14:56 EDT Inpatient Patient Summaryon 02-04-2024 Inpatient Patient Summary [address] [address] [facility] Clinical Discharge Instructions PERSON INFORMATION Name: EBEN ARENAS PHYSICIANS Admitting Physician: Ruben CHASE MD Attending Physician: Ruben CHASE MD PCP: JULIA MCDANIELS MD Discharge Diagnosis: EIC (epidermal inclusion cyst) Comment: PATIENT EDUCATION INFORMATION Instructions: Medication Leaflets: Follow up: With: Address: When: Ruben CHASE [address], [address], [facility] [address] [place] [address] Business (1) Within 2 weeks Type Location Start Finish [facility] 02/12/2024 1:40 PM 02/12/2024 2:00 PM Confirmed Pain Management - Follow Up (FT) FT.[facility] [place] 02/12/2024 2:15 PM 02/12/2024 2:30 PM Confirmed MEDICATION LIST Medications to Continue with No Changes Other Medications apixaban (Eliquis 5 mg oral tablet) 1 Tablets By Mouth 2 times a day. baclofen (baclofen 10 mg Tab) 1 Tablets By Mouth every day as needed Pain. hydrochlorothiazide- lisinopril (hydrochlorothiazide -lisinopril 12.5 mg-20 mg Tab) 1 Tablets By Mouth every day. multivitamin with minerals niacin (niacin 500 mg ER Tab) 1 Tablets By Mouth every day. sotalol (sotalol 80 mg Tab) 0.5 Tablets By Mouth 2 times a day. triamcinolone nasal (Nasacort Allergy 24HR nasal spray) 1 Sprays Nasal Inhalation every day as needed Allergy symptoms. Comment: Normal [facility] Main OR Intraoperative Recor don 02-04-2024 Main OR Intraoperative Record IntraOp Document Type FT Summary Primary Physician: Ruben CHASE MD Finalized Date/Time: 02/04/24 16:05:41 Pt. Name: EBEN ARENAS/Sex: 1960 Male Med Rec #: [id number] Physician: Ruben CHASE MD Financial #: [id number] Pt. Type: A Room/Bed: AX10/12 Admit/Disch: 02/04/24 12:07:19 - 02/04/24 15:00:00 Institution: Case Times FT Entry 1 Patient Times In Room 02/04/24 14:15:00 Out Room 02/04/24 14:45:00 Procedure Times Start 02/04/24 14:22:00 Stop 02/04/24 14:42:00 Anesthesia Times Last Modified By: Suresh Still Ii 02/04/24 15:49:04 General Comments: 02/04/24 CHART OPEN TO REVIEW ANSD SEND CHARGES. Rustam TEAGUE RN. Case Attendance FT Entry 1 Entry 2 Entry 3 Case Attendee SALVATORE JAVIER, Ruben Almaguer, Nicole Barrera Role Performed Surgeon - Primary Scrub - Primary Staff - Other Time In 02/04/24 14:15:00 02/04/24 14:15:00 02/04/24 14:15:00 Time Out 02/04/24 14:45:00 02/04/24 14:45:00 02/04/24 14:28:00 Procedure CYST LESION REMOVAL(.) CYST LESION REMOVAL(.) CYST LESION REMOVAL(.) Comments transported the patient Last Modified By: Suresh Still Ii, Alfons Ii F Letrondo, Alfons Ii F 02/04/24 14:49:10 02/04/24 14:49:10 02/04/24 14:49:10 Entry 4 Case Attendee Suresh Still Ii Role Performed Physician Scientist - Primary Time In 02/04/24 14:15:00 Time Out 02/04/24 14:45:00 Procedure CYST LESION REMOVAL(.) Comments Last Modified By: Suresh Still Ii 02/04/24 14:49:10 Perioperative Protocols FT Pre-Care Text: Implements protective measures prior to operative or invasive procedure, confirms identity before the operative or invasive procedure, verifies operative procedure, surgical site, and laterality Entry 1 Procedure(s) CYST LESION REMOVAL(.) Patient Identity Birthday, ID Band Verified (select at Check, Patient least 2): Participation Consents / H and P Anesthesia Consent, Operative Site N/A Verified HandP, Surgery/Procedure Marking Verified Consent Surgical Site Yes Laterality Verified No Verified Procedure Verified Yes Correct Patient Yes Position Verified Availability Equipment, Medication Prep Dry No Verified (If Applicable) PreOp Antibiotic No Time Out SALVATORE JAVIER, Ruben Martinez, Ashlee Arnold Letrondo, Alfons Ii F Time Out Complete 02/04/24 14:20:00 Outcomes Met? Yes Last Modified By: Suresh Still Ii 02/04/24 14:25:59 Post-Care Text: The patient is free from signs and symptoms of injury caused by extraneous objects Allergy Information FT Pre-Care Text: Verifies allergies Entry 1 Allergies Reviewed? Yes Allergies Reviewed Self/Patient With Outcomes Met? Yes Last Modified By: Suresh Still Ii 02/04/24 14:28:43 Post-Care Text: The patient received appropriate medication(s) safely administered during the perioperative period Surgical Procedures FT Entry 1 Procedure Description Procedure CYST LESION REMOVAL Modifiers . Surgeon Description EXCISIONAL BIOPSY EPIDERMAL CYST X2 ON BACK Primary Procedure Yes Primary Surgeon SALVATORE JAVIER, Ruben Martinez Start 02/04/24 14:22:00 Stop 02/04/24 14:42:00 Anesthesia Type Local Surgical Service General Wound Class 1 - Clean Last Modified By: Suresh Still Ii 02/04/24 14:49:16 General Case Data FT Pre-Care Text: Classifies surgical wound, implements aseptic technique, initiates traffic control Entry 1 Case Information OR OR 6 FT Case Level Level 1 Wound Class 1 - Clean Specialty General Preop Diagnosis EPIDERMAL CYST Postop Same As Preop Yes Postop Diagnosis EPIDERMAL CYST Outcomes Met? Yes Last Modified By: Suresh Still Ii 02/04/24 14:29:07 Post-Care Text: The patient is free from signs and symptoms of infection Skin Assessment (Pre Procedure) FT Pre-Care Text: Implements protective measures to prevent skin/ tissue injury due to thermal or mechanical sources Evaluates for signs and symptoms of physical injury to skin and tissue Entry 1 Skin Integrity Intact, [place], Warm, and Skin Abnormality No Dry Outcomes Met? Yes Last Modified By: Suresh Still Ii 02/04/24 14:29:14 Post-Care Text: The patient is free from signs and symptoms of injury caused by extraneous objects Patient Positioning FT Pre-Care Text: Identifies physical alterations that require additional precautions for procedure-specific positioning, verifies presence of prosthetics or corrective devices, positions the patient, evaluates the patient for signs and symptoms of injury as a result of positioning Entry 1 Procedure CYST LESION REMOVAL(.) Body Position Lateral, left side up Feet Uncrossed? Yes Left Arm Position Secured Across Chest Right Arm Position Extended on Padded Arm Left Leg Position Extended Board Right Leg Position Extended Positioning Device Safety Strap, Pillow Under Head Large, Pillow Large Between Knees Press Points Checked Yes By Marleni, (more content not included)... Normal [facility] Main OR PACU II [facility] Main OR PACU II Record PACU Phase II Document Type FT Summary Primary Physician: Ruben CHASE MD Finalized Date/Time: 02/04/24 15:07:56 Pt. Name: EBEN ARENAS./Sex: 1960 Male Med Rec #: [id number] Physician: Ruben CHASE MD Financial #: [id number] Pt. Type: A Room/Bed: [facility] Admit/Disch: 02/04/24 12:07:19 - Institution: Case Times PACU II FT Pre-Care Text: Identifies barriers to communication and implements measures to provide psychological support and determines knowledge level Develops individualized plan of care, and ensures continuity of care Maintains patient's dignity and privacy, and maintains patient confidentiality Identifies and reports philosophical, cultural, and spiritual beliefs and values Identifies individual values and wishes concerning care administers prescribed antibiotic therapy and immunizing agents as ordered, Evaluates postoperative tissue perfusion Implements thermoregulation measures, and monitors body temperature Evaluates postoperative respiratory status Evaluates postoperative cardiac status Evaluates postoperative neurological status Assesses pain control, collaborated in initiating patient-controlled analgesia and implements alternative methods of pain control Verifies allergies, administers prescribed medications and solutions, evaluates response to medications Entry 1 In PACU II 02/04/24 14:35:00 Discharge from PACU 02/04/24 15:00:00 II Outcomes Met? Yes Last Modified By: Jenniffer Valdes RN 02/04/24 15:07:53 Post-Care Text: The patient demonstrates knowledge of the expected response to the operative or invasive procedure The patient's care is consistent with the individualized perioperative plan of care The patient's right to privacy is maintained The patient's value system, lifestyle, ethnicity, and culture are considered, respected, and incorporated into the perioperative plan of care The patient participates in decisions affecting his or her perioperative plan of care. The patient is free from signs and symptoms of infection The patient has wound/tissue perfusion consistent with or improved from baseline levels established preoperatively The patient is at or returning to normothermia at the conclusion of the immediate postoperative period The patient's respiratory function is consistent with or improved from baseline levels established preoperatively The patient's cardiovascular status is consistent with or improved from baseline levels established preoperatively The patient's neurological status is consistent with or improved from baseline levels established preoperatively The patient demonstrates and/or reports adequate pain control throughout the perioperative period The patient received appropriate medication(s), safely administered during the perioperative period Finalized By: Jenniffer Valdes RN Document Signatures Signed By: Jenniffer Valdes RN 02/04/24 15:07 Normal [facility] Main OR Preoperative Recordo n 02-04-2024 Main OR Preoperative Record PreOp Document Type FT Summary Primary Physician: Ruben CHASE MD Finalized Date/Time: 02/04/24 14:22:06 Pt. Name: BEEN ARENAS/Sex: 1960 Male Med Rec #: [id number] Physician: Ruben CHASE MD Financial #: [id number] Pt. Type: A Room/Bed: [place] [address] Admit/Disch: 02/04/24 12:07:19 - Institution: Case Times PreOp FT Pre-Care Text: Verifies consent for planned procedure, identifies individual values and wishes concerning care, includes family members in perioperative teaching Entry 1 Patient Times. In Pre Surgery 02/04/24 12:15:00 Out Pre Surgery 02/04/24 14:13:00 Outcomes Met? Yes Last Modified By: Suresh Still Ii 02/04/24 14:22:03 Post-Care Text: The patient participates in decisions affecting his or her perioperative plan of care Finalized By: Suresh Still Ii Document Signatures Signed By: Suresh Still Ii 02/04/24 14:22 Normal [facility] Main OR Preoperative Record Holding Area Document Type FT Summary Primary Physician: Ruben CHASE MD Finalized Date/Time: 02/04/24 12:24:15 Pt. Name: EBEN ARENAS/Sex: 1960 Male Med Rec #: [id number] Physician: Ruben CHASE MD Financial #: [id number] Pt. Type: A Room/Bed: AX01/ Admit/Disch: 02/04/24 12:07:19 - Institution: Case Times Holding FT Pre-Care Text: Verifies consent for planned procedure, identifies individual values and wishes concerning care, includes family members in perioperative teaching Secures patient's records' belongings, and valuables, maintains patient's dignity and privacy, and maintains patient confidentiality Entry 1 In Holding 02/04/24 12:15:00 Outcomes Met? Yes Last Modified By: Arlene Child RN 02/04/24 12:23:02 Post-Care Text: The patient participates in decisions affecting his or her perioperative plan of care The patient's right to privacy is maintained Surgery Checklist FT Entry 1 Patient Birthday, ID Band Procedure Surgical Consent, With Identification: Check, Patient Verification: Patient Participation NPO after Midnight: No Complaints of Pain: No Operative Site No Marking: Does Patient Smoke No Patient states No Case Cancelled in No postop adult Holding Area see supervision comments below for available reason Last Modified By: Arlene Child RN 02/04/24 12:24:09 Finalized By: Arlene Child RN Document Signatures Signed By: Arlene Child RN 02/04/24 12:24 Arlene Child RN 02/04/24 12:24 Normal [facility] Outpatient Surgery Discharge Instructionon 02-04-2024 Outpatient Surgery Discharge Instruction [place] [id number] Patient Discharge Instructions PERSON INFORMATION Name: EBEN ARENAS Date of : 1960 Current Date: 02/04/2024 14:49:47 PHYSICIANS Admitting Physician: Ruben CHASE MD Discharge Diagnosis: EIC (epidermal inclusion cyst) EBEN ARENAS has been given the following list of follow-up instructions, prescriptions, and patient education materials: PATIENT FOLLOW-UP INFORMATION Diet: Regular Discharge Activity: Resume normal activities in 24 hours Discharge Restrictions: No restrictions Call Your Doctor For: Persistent or heavy bleeding, Temperature above 101.5 degrees, Redness, swelling, or pus at operative site, Severe pain at the operative site Wound Care Instructions: Keep incision dry, Remove dressing as instructed Remove Your Dressing In 1 Days Additional Instructions: may shower tomorrow, remove dressing and leave open to air; no tub baths for 10 days; take tylenol as needed for pain; resume Eliquis tomorrow. IF UNABLE TO CONTACT YOUR PHYSICIAN AND YOU FEEL IT IS AN EMERGENCY, GO TO THE NEAREST EMERGENCY ROOM OR CALL 911 DAGOBERTO Serrano BRIAN K, have received the attached patient education materials/instructio ns and have verbalized understanding: May we do a follow up call? Yes No I was present when discharge instructions were given Patient Signature Date Clinican/Nurse Signature Date Follow up: With: Address: When: Ruben CHASE [facility] [address], [facility] [address] [place] [address] Business (1) Within 2 weeks Type Location Start Finish [facility] 02/12/2024 1:40 PM 02/12/2024 2:00 PM Confirmed Pain Management - Follow Up (FT) [facility] [place] 02/12/2024 2:15 PM 02/12/2024 2:30 PM Confirmed Pharmacy Information: You may receive a survey from Rachelle Sykes asking you to rate your care experience. Your feedback is important and will help us understand what we do well and how we can improve the quality of care we provide to you, your loved ones and our community. It?s an honor to serve you. Thank you for choosing [facility] HERE ARE THE MEDICATION CHANGES THAT OCCURRED DURING YOUR HOSPITAL STAY Medications to Continue with No Changes Other Medications apixaban (Eliquis 5 mg oral tablet) 1 Tablets By Mouth 2 times a day. baclofen (baclofen 10 mg Tab) 1 Tablets By Mouth every day as needed Pain. hydrochlorothiazide- lisinopril (hydrochlorothiazide -lisinopril 12.5 mg-20 mg Tab) 1 Tablets By Mouth every day. multivitamin with minerals niacin (niacin 500 mg ER Tab) 1 Tablets By Mouth every day. sotalol (sotalol 80 mg Tab) 0.5 Tablets By Mouth 2 times a day. triamcinolone nasal (Nasacort Allergy 24HR nasal spray) 1 Sprays Nasal Inhalation every day as needed Allergy symptoms. PATIENT EDUCATION INFORMATION Instructions: Medication Leaflets: [facility] Patient Education - Texton 0 02-04-2024 Patient Education - Text Dermatology Epidermoid Cyst Removal, Care After This sheet gives you information about how to care for yourself after your procedure. Your health care provider may also give you more specific instructions. If you have problems or questions, contact your health care provider. What can I expect after the procedure? After the procedure, it is common to have: ? Soreness in the area where your cyst was removed. ? Tightness or itchiness from the stitches (sutures) in your skin. Follow these instructions at home: Medicines ? Take bmjm-dzg-lnubnqu and prescription medicines only as told by your health care provider. ? If you were prescribed an antibiotic medicine or ointment, take or apply it as told by your health care provider. Do not stop using the antibiotic even if you start to feel better. Incision care ? Follow instructions from your health care provider about how to take care of your incision. Make sure you: ? Wash your hands with soap and water for at least 20 seconds before you change your bandage (dressing). If soap and water are not available, use hand grain unloader machine. ? Change your dressing as told by your health care provider. ? Leave sutures, skin glue, or adhesive strips in place. These skin closures may need to stay in place for 1?2 weeks or longer. If adhesive strip edges start to loosen and curl up, you may trim the loose edges. Do not remove adhesive strips completely unless your health care provider tells you to do that. ? Keep the dressing dry until your health care provider says that it can be removed. ? After your dressing is off, check your incision area every day for signs of infection. Check for: ? Redness, swelling, or pain. ? Fluid or blood. ? Warmth. ? Pus or a bad smell. General instructions ? Do not take baths, swim, or use a hot tub until your health care provider approves. Ask your health care provider if you may take showers. You may only be allowed to take sponge baths. ? Your health care provider may ask you to avoid contact sports or activities that take a lot of effort. Do not do anything that stretches or puts pressure on your incision. ? You can return to your normal diet. ? Keep all follow-up visits. This is important. Contact a health care provider if: ? You have a fever. ? You have redness, swelling, or pain in the incision area. ? You have fluid or blood coming from your incision. ? You have pus or a bad smell coming from your incision. ? Your incision feels warm to the touch. ? Your cyst grows back. Get help right away if: ? If the incision site suddenly increases in size and you have pain at the incision site. You may be checked for a collection of blood under the skin from the procedure (hematoma). Summary ? After the procedure, it is common to have soreness in the area where your cyst was removed. ? Take or apply gknq-gaf-bhnbzus and prescription medicines only as told by your health care provider. ? Follow instructions from your health care provider about how to take care of your incision. This information is not intended to replace advice given to you by your health care provider. Make sure you discuss any questions you have with your health care provider. Document Revised: 01/02/2021 Document Reviewed: 01/02/2021 [employer] Patient Education ? 2022 [employer] [facility] Consent for Procedure/Surger shara 02-03-2024 Consent for Procedure/Surgery [id number] #1.00TIFF Normal [facility] Consultation Noteon 01-29-20 Consultation Note [id number] #1.00TIFF Normal [facility] Ambulatory Visit Summaryon 0 01-28-2024 Ambulatory Visit Summary EBEN ARENAS :1960 Visit Date:01/28/2024 Ambulatory Visit Instructions Your Care Team Attending Physician - SALVATORE JAVIER, Ruben Martinez Primary Care Physician - ARSLAN JAVIER, JULIA This Is Your Medications List apixaban (Eliquis 5 mg oral tablet) baclofen (baclofen 10 mg Tab) hydrochlorothiazide- lisinopril (hydrochlorothiazide -lisinopril 12.5 mg-20 mg Tab) multivitamin with minerals niacin (niacin 500 mg ER Tab) sotalol (sotalol 80 mg Tab) Procedures Performed Arthroplasty of knee (08/05/2022), Cardioversion, Excision of lipoma, Radiofrequency ablation of medial branch of lumbar nerve using fluoroscopic guidance, Repair of meniscus, Tibial osteotomy. Discharge Vitals Heart Rate (Peripheral) 68 Respiratory Rate 16 Blood Pressure 142/81 Height 177 cm Height 70 in Weight 127.1 kg Weight 279.62 lb BMI 40.57 What to do next Scheduled Follow-Up Appointments Thursday. 2023 2:15 PM EDT With: Staci Kevin PA-C Where: [facility] Medications What How Much When Instructions Unchanged apixaban (Eliquis 5 mg oral tablet) 1 Tablets By Mouth 2 times a day Unchanged baclofen (baclofen 10 mg Tab) 1 Tablets By Mouth Every day as needed for Pain Unchanged hydrochlorothiazide- lisinopril (hydrochlorothiazide -lisinopril 12.5 mg-20 mg Tab) 1 Tablets By Mouth Every day Unchanged multivitamin with minerals Unchanged niacin (niacin 500 mg ER Tab) 1 Tablets By Mouth Every day Unchanged sotalol (sotalol 80 mg Tab) 0.5 Tablets By Mouth 2 times a day Allergies Ativan (Dizziness) LaMICtal (Agitation) Vytorin (Hives) Problems Ongoing - Any problem that you are currently receiving treatment for. Bilateral stenosis of carotid arteries BMI 40.0-44.9, adult Erectile dysfunction HTN (hypertension) Hypercholesterolemia Intermittent claudication Lumbar spondylosis Morbid obesity Peripheral vascular disease Platelet disorder Seasonal allergic rhinitis Secondary polycythemia Type 2 diabetes mellitus Patient Survey You may receive a survey via text or e-mail asking about your office visit. Please share your experience with us by completing your survey. We appreciate your feedback and thank you for choosing us for your care. [facility] Consent for Procedure/Surger yon 01-28-2024 Consent for Procedure/Surgery [id number] #1.00TIFF [facility] Formson 01-28-2024 Forms [id number] #1.00TIFF [facility] Consent for Procedure/Surger yon 01-27-2024 Consent for Procedure/Surgery [id number] 5#1.00TIFF [facility] Consent for Treatmenton 01-10 Consent for Treatment [id number]# 1.00TIFF [facility] Discharge Instructionson Discharge Instructions [id number] 6#1.00TIFF [facility] IntraOperative Documentson 0 01-27-2024 IntraOperative Documents [id number] 4#1.00TIFF [facility] IntraOperative Documents [id number] 6#1.00TIFF [facility] Main OR Intraoperative Recor don 01-27-2024 Main OR Intraoperative Record IntraOp Document Type FTPM Summary Primary Physician: David Cao DO Finalized Date/Time: 01/27/24 14:53:00 Pt. Name: EBEN ARENAS/Sex: 1960 Male Med Rec #: [id number] Physician: David Cao DO Financial #: [id number] Pt. Type: P Room/Bed: / Admit/Disch: 01/27/24 13:30:13 - Institution: Case Times FTPM Entry 1 Patient Times In Room 01/27/24 14:42:00 Out Room 01/27/24 14:51:00 Procedure Times Start 01/27/24 14:45:00 Stop 01/27/24 14:50:00 Anesthesia Times Last Modified By: Darlin Rizo RN 01/27/24 14:50:28 Case Attendance FTPM Entry 1 Entry 2 Entry 3 Case Attendee David Cao DO, RN, Darlin Chakraborty RN, Flaquita Matute Role Performed Surgeon - Primary Physician Scientist - Primary Scrub - Primary Time In 01/27/24 14:42:00 01/27/24 14:42:00 01/27/24 14:42:00 Time Out 01/27/24 14:51:00 01/27/24 14:51:00 01/27/24 14:51:00 Procedure MEDIAL BRANCH MEDIAL BRANCH MEDIAL BRANCH BLOCK(Bilateral) BLOCK(Bilateral) BLOCK(Bilateral) Comments Last Modified By: Darlin Rizo RN, RN, Madison A Pritchard RN, Madison A 01/27/24 14:50:29 01/27/24 14:50:29 01/27/24 14:50:29 Entry 4 Case Attendee Walter Boyce Role Performed Sdet Time In 01/27/24 14:42:00 Time Out 01/27/24 14:51:00 Procedure MEDIAL BRANCH BLOCK(Bilateral) Comments Last Modified By: Darlin Rizo RN 01/27/24 14:50:29 Perioperative Protocols FTPM Pre-Care Text: Implements protective measures prior to operative or invasive procedure, confirms identity before the operative or invasive procedure, verifies operative procedure, surgical site, and laterality Entry 1 Procedure(s) MEDIAL BRANCH Patient Identity Birthday, ID Band BLOCK(Bilateral) Verified (select at Check, Patient least 2): Participation Consents / H and P HandP, Surgery/Procedure Operative Site Present Verified Consent Marking Verified Surgical Site Yes Laterality Verified Yes Verified Procedure Verified Yes Correct Patient Yes Position Verified Availability Equipment, Medication, Prep Dry Yes Verified (If X-ray Applicable) PreOp Antibiotic No Time Out Darlin Rizo RN, Roderick RN, Nash Guzman DO, Bradford A., Walter Boyce Time Out Complete 01/27/24 14:42:00 Outcomes Met? Yes Last Modified By: Darlin Rizo RN 01/27/24 14:43:02 Post-Care Text: The patient is free from signs and symptoms of injury caused by extraneous objects Allergy Information FTPM Pre-Care Text: Verifies allergies Entry 1 Allergies Reviewed? Yes Allergies Reviewed Self/Patient With Outcomes Met? Yes Last Modified By: Darlin Rizo RN 01/27/24 14:35:55 Post-Care Text: The patient received appropriate medication(s) safely administered during the perioperative period Surgical Procedures FTPM Entry 1 Procedure Description Procedure MEDIAL BRANCH BLOCK Modifiers Bilateral Surgeon Description L4/5 + L5/S1 MBB Primary Procedure Yes Primary Surgeon David Cao DO Start 01/27/24 14:45:00 Stop 01/27/24 14:50:00 Anesthesia Type None Surgical Service Pain Management Wound Class 1 - Clean Last Modified By: Darlin Rizo RN 01/27/24 14:50:30 General Case Data FTPM Pre-Care Text: Classifies surgical wound, implements aseptic technique, initiates traffic control Entry 1 Case Information OR Pain Proc Room Case Level Level 2 Wound Class 1 - Clean Specialty Pain Management Preop Diagnosis M47.816 Postop Same As Preop Yes Postop Diagnosis M47.816 Outcomes Met? Yes Last Modified By: Darlin Rizo RN 01/27/24 14:43:11 Post-Care Text: The patient is free from signs and symptoms of infection Skin Assessment (Pre Procedure) FTPM Pre-Care Text: Implements protective measures to prevent skin/ tissue injury due to thermal or mechanical sources Evaluates for signs and symptoms of physical injury to skin and tissue Entry 1 Skin Integrity Intact, [place], Warm, and Skin Abnormality No Dry Outcomes Met? Yes Last Modified By: Darlin Rizo RN 01/27/24 14:36:03 Post-Care Text: The patient is free from signs and symptoms of injury caused by extraneous objects Patient Positioning FTPM Pre-Care Text: Identifies physical alterations that require additional precautions for procedure-specific positioning, verifies presence of prosthetics or corrective devices, positions the patient, evaluates the patient for signs and symptoms of injury as a result of positioning Entry 1 Procedure MEDIAL BRANCH Body Position Prone BLOCK(Bilateral) Feet Uncrossed? Yes Left Arm Position Resting at Side Right Arm Position Resting at Side Left Leg Position Extended Right Leg Position Extended Positioning Device Pillow Under Head Large, Safety Strap, Pillow Large Under Knees Press Points Checked Yes By Darlin Rizo RN Outcomes Met? Yes Last Modified By: Darrius Martinez (more content not included)... Normal [facility] Main OR Preoperative Recordo n 01-27-2024 Main OR Preoperative Record Holding Area Document Type FTPM Summary Primary Physician: David Cao DO Finalized Date/Time: 01/27/24 13:49:49 Pt. Name: DAGOBERTOEBEN/Sex: 1960 Male Med Rec #: [id number] Physician: David Cao DO Financial #: [id number] Pt. Type: P Room/Bed: / Admit/Disch: 01/27/24 13:30:13 - Institution: Case Times Holding FTPM Pre-Care Text: Verifies consent for planned procedure, identifies individual values and wishes concerning care, includes family members in perioperative teaching Secures patient's records' belongings, and valuables, maintains patient's dignity and privacy, and maintains patient confidentiality Entry 1 In Holding 01/27/24 13:47:00 Outcomes Met? Yes Last Modified By: Margarita Russell RN 01/27/24 13:47:16 Post-Care Text: The patient participates in decisions affecting his or her perioperative plan of care The patient's right to privacy is maintained Surgery Checklist FTPM Entry 1 Patient Birthday, ID Band Procedure History and Physical, Identification: Check, Patient Verification: Surgical Consent, With Participation Patient NPO after Midnight: No Date/Time: 01/27/24 13:48:00 Results Reviewed [address] and Personal Items: Glasses Comments: cup of coffee Personal Items Pt. wearing glasses. Complaints of Pain: Yes Comment: Pain Comment: 04/20 lower back pain Operative Site Yes Marking: Marked By: Dr. Cao Location: bilateral L4-S1 Availability Equipment, X-Ray Verified: Does Patient Smoke No Patient states No Case Cancelled in No postop adult Holding Area see supervision comments below for available reason Last Modified By: Margarita Russell RN 01/27/24 13:49:48 Finalized By: Margarita Russell RN Document Signatures Signed By: Margarita Russell RN 01/27/24 13:49 Normal [facility] Physician Referralon 024 Physician Referral [id number] #1.00TIFF Normal [facility] Patient Correspondenceon Patient Correspondence [id number] 6#1.00TIFF Normal [facility] Automated basophil %on 12-28 Basophils/100 WBC (Bld) 1.1 % Normal [facility] Comment on above: Order Comment: Speci men Type: BLOOD SPECIMENOrdering Facility: [facility] Address: [address] [place] [address] Performed By: #### 5 7021-8 ####[facility] LABCLIA [id number] [place] [address] Automated basophil counton 0 12-29-2023 Basophils (Bld) [#/Vol] 0.08 10*3/uL Normal <0.11 [facility] Comment on above: Order Comment: Speci men Type: BLOOD SPECIMENOrdering Facility: [facility] Address: [address] [place] [address] Performed By: #### 5 7021-8 ####[facility] LABCLIA [id number] [place] [address] Automated blood monocyte cou nton 12-29-2023 Monocytes (Bld) [#/Vol] 0.73 10*3/uL Normal <0.87 [facility] Comment on above: Order Comment: Speci men Type: BLOOD SPECIMENOrdering Facility: [facility] Address: [address] [place] [address] Performed By: #### 5 7021-8 ####[facility] LABCLIA [id number] [place] [address] Automated eosinophil %on Eosinophils/100 WBC (Bld) 7.0 % [facility] Comment on above: Order Comment: Speci men Type: BLOOD SPECIMENOrdering Facility: [facility] Address: [address] [place] [address] Performed By: #### 5 7021-8 ####[facility] LABCLIA [id number] [place] [address] Automated monocyte %on 12-28 Monocytes/100 WBC (Bld) 10.2 % Normal [facility] Comment on above: Order Comment: Speci men Type: BLOOD SPECIMENOrdering Facility: [facility] Address: [address] [place] [address] Performed By: #### 5 7021-8 ####[facility] LABCLIA [id number] [place] [address] Automated neutrophil %on Neutrophils/100 WBC (Bld) 55.6 % [facility] Comment on above: Order Comment: Speci men Type: BLOOD SPECIMENOrdering Facility: [facility] Address: [address] [place] [address] Performed By: #### 5 7021-8 ####[facility] LABCLIA [id number] [place] [address] Blood manual differential co mment interpretation narrativeon 12-29-2023 Manual differential comment Edwin (Bld) [Interp] Auto [facility] CBC W Auto Diff Bldon 2023 Eosinophils (Bld) [#/Vol] 0.50 10*3/uL High <0.46 [facility] Comment on above: Order Comment: Speci men Type: BLOOD SPECIMENOrdering Facility: [facility] Address: [address] [place] [address] Performed By: #### 5 7021-8 ####[facility] LABCLIA [id number] [place] [address] Immature granulocytes/100 WBC (Bld) 0.3 % [facility] Comment on above: Order Comment: Speci men Type: BLOOD SPECIMENOrdering Facility: [facility] Address: [address] [place] [address] Performed By: #### 5 7021-8 ####[facility] LABCLIA [id number] [place] [address] CBC W Auto Differential pane l (Bld)on 12-29-2023 Differential cell count method Nom (Bld) Auto Normal [facility] Comment on above: Order Comment: Speci men Type: BLOOD SPECIMENOrdering Facility: [facility] Address: [address] [place] [address] Performed By: #### 5 7021-8 ####[facility] LABIA [id number] [place] [address] Immature granulocytes (Bld) [#/Vol] 10*3/uL Normal <0.10 [facility] Comment on above: Order Comment: Speci men Type: BLOOD SPECIMENOrdering Facility: [facility] Address: [address] [place] [address] Performed By: #### 5 7021-8 ####[facility] LABCLIA [id number] [place] [address] Nucleated RBC/100 WBC (Bld) [Ratio] 0.0 /100 WBC Normal [facility] Comment on above: Order Comment: Speci men Type: BLOOD SPECIMENOrdering Facility: [facility] Address: [address] [place] [address] Performed By: #### 5 7021-8 ####[facility] LABCLIA [id number] [place] [address] WBC (Bld) [#/Vol] 7.13 10*3/uL Normal 3.70-11.00 [facility] Comment on above: Order Comment: Speci men Type: BLOOD SPECIMENOrdering Facility: [facility] Address: [address] [place] [address] Performed By: #### 5 7021-8 ####[facility] LABCLIA [id number] [place] [address] CNOVSPon 12-29-2023 OVSP Visit (SP) Office (HEMASA) EBEN ARENAS ([id number]) 1960 M Date Time Provider Department 12/29/23 3:00 PM MARGARITA TAYLOR During your visit today, we recorded the following information about you: Temperature Pulse Respiration Blood pressure 97.6 degrees 72/minute 16/minute 147/89 Weight Height 126.6 kg 1.772 m Dinora Buitrago MA 12/29/2023 3:06 PM Addendum Patient thinks his Testosterone is low, he would like to discuss it with you. FAMILIA Caraballo Mindy M, PA-C 12/29/2023 3:50 PM Signed PATIENT NAME: Eben Arenas CLINIC NO.: [id number] ATTENDING PHYSICIAN: Anselmo Mcpherson MD DATE OF SERVICE: December 29 2023 (Elements copied from Dr. Mcpherson's note dated 2023, have been reviewed and updated where appropriate, and all reflect current assessment and medical decision making during today's encounter, December 29, 2023) CC: Follow up Diagnosis: 1. 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 HPI: Eben returns for follow up. Has been off testosterone since October. Had cardioversion in november. He has been more tired since he quit testosterone. Otherwise doing well. Hgb has been around 16.5 at home. PAST MEDICAL HISTORY Diagnosis Date Former smoker HLD (hyperlipidemia) CHITIMACHA (hard of hearing) HTN (hypertension) Long-term use of aspirin therapy OA (osteoarthritis) of knee Polycythemia S/P right knee arthroscopy TIA (transient ischemic attack) Social History Tobacco Use Smoking status: Former Passive exposure: Past Smokeless tobacco: Former Types: Chew Quit date: 09/12/2016 Tobacco comments: QUIT 15 YEARS AGO Vaping Use Vaping Use: Never used Substance Use Topics Alcohol use: Yes Comment: rare Drug use: No FAMILY HISTORY Problem Relation Age of Onset Lipids Mother Hypertension Mother Hypertension Father Lipids Father Past medical, social and family history reviewed without any changes. REVIEW OF SYSTEMS GENERAL: No weight loss, malaise or fevers. No night sweats. +fatigue HEENT: Negative for headaches, No changes in hearing or vision, no nose bleeds or other nasal problems. RESPIRATORY: Negative for cough, wheezing and shortness of breath CARDIOVASCULAR: Negative for chest pain, leg swelling and palpitations GI: Negative for abdominal discomfort, blood in stools or black stools and change in bowel habits : Negative for dysuria, frequency and incontinence MUSCULOSKELETAL: Negative for joint pain or swelling, back pain, and muscle pain. SKIN: Negative for lesions, rash, and itching. HEMATOLOGY/LYMPHOLOG Y Negative for prolonged bleeding, bruising easily, and swollen nodes. NEURO: Negative for numbness or tingling of hands/feet. No weakness. PHYSICAL EXAMINATION: BP 147/89 Pulse 72 Temp (Src) 97.6 (Temporal) Resp 16 Ht 5' 9.764 (1.77m) Wt 279 lb 1.6 oz (126.6kg) SpO2 97% BMI 40.32 kg/(m2). ECOG PERFORMANCE STATUS: 0- Fully active, able to carry on all pre-disease performance w/o restriction. General: Alert and oriented, no distress, pleasant and cooperative. Heart: Regular, normal S1 and S2, no murmurs, rubs, or gallops Lungs: Clear to auscultation bilaterally Abdomen: Benign Extremities: Feet/ankles without edema, posterior tibial pulses full and symmetrical LABS: Glucose (mg/dL) Date Value 2023 135 10/21/2019 Requisitioning entry error Potassium (mmol/L) Date Value 2023 3.8 10/21/2019 Requisitioning entry error Sodium (mmol/L) Date Value 2023 141 10/21/2019 Requisitioning entry error Chloride (mmol/L) Date Value 2023 108 10/21/2019 Requisitioning entry error CO2 (mmol/L) Date Value 2023 23 10/21/2019 Requisitioning entry error Creatinine (mg/dL) Date Value 2023 1.01 10/21/2019 Requisitioning entry error BUN (mg/dL) Date Value 2023 12 10/21/2019 Requisitioning entry error Anion Gap (mmol/L) Date Value 2023 10 10/21/2019 Requisitioning entry error Calcium (mg/dL) Date Value 10/21/2019 Requisitioning entry error Calcium, Total (mg/dL) Date Value 2023 9.0 Protein, Total (g/dL) Date Value 2023 6.4 10/21/2019 Requisitioning entry error Albumin (g/dL) Date Value 2023 3.9 10/21/2019 Requisitioning entry error Bilirubin, Total (mg/dL) Date Value 2023 0.8 10/21/2019 Requisitioning entry error Alkaline Phosphatase (U/L) Date Value 2023 90 10/21/2019 Requisitioning entry error AST (U/L) Date Value 2023 28 10/21/2019 Requisitioning entry error ALT (U/L) Date Value 2023 40 10/21/2019 Requisitioning entry error WBC Date Value Ref Range Status 12/29/2023 7.13 3.70 - 11.00 (more content not included)... Normal [facility] Erythrocyte distribution wid th [Ratio] by Automated counton 12-29-2023 Erythrocyte distribution width (RBC) [Ratio] 13.7 % Normal 11.5-15.0 [facility] Comment on above: Order Comment: Speci men Type: BLOOD SPECIMENOrdering Facility: [facility] Address: [address] [place] [address] Performed By: #### 5 7021-8 ####[facility] LABCLIA [id number] [place] [address] Erythrocytes [#/volume] in B lood by Automated counton 12-29-2023 RBC (Bld) [#/Vol] 5.51 10*6/uL Normal 4.20-6.00 [facility] Comment on above: Order Comment: Speci men Type: BLOOD SPECIMENOrdering Facility: [facility] Address: [address] [place] [address] Performed By: #### 5 7021-8 ####[facility] LABCLIA [id number] [place] [address] Ferritin SerPl-mCncon 2023 Ferritin [Mass/Vol] 251.0 ng/mL Normal 30.3-565.7 [facility] Comment on above: Order Comment: Speci men Type: BLOOD SPECIMENOrdering Facility: [facility] Address: [address] [place] [address] Performed By: #### 5 0190-8, 2276-4 ####[facility] LABCLIA [id number] [place] Hematocrit [Volume Fraction] of Blood by Automated counton 12-29-2023 Hematocrit (Bld) [Volume fraction] 49.8 % Normal 39.0-51.0 [facility] Comment on above: Order Comment: Speci men Type: BLOOD SPECIMENOrdering Facility: [facility] Address: [address] [place] [address] Performed By: #### 5 7021-8 ####[facility] LABCLIA [id number] [place] [address] Hemoglobin [Mass/volume] in Bloodon 12-29-2023 Hemoglobin (Bld) [Mass/Vol] 17.5 g/dL High 13.0-17.0 [facility] Comment on above: Order Comment: Speci men Type: BLOOD SPECIMENOrdering Facility: [facility] Address: [address] [place] [address] Performed By: #### 5 7021-8 ####[facility] LABCLIA [id number] [place] [address] Iron and Iron binding capaci ty panelon 12-29-2023 Iron/TIBC [Molar ratio] 50.2 % Normal 15.0-57.0 [facility] Comment on above: Order Comment: Speci men Type: BLOOD SPECIMENOrdering Facility: [facility] Address: [address] [place] [address] Performed By: #### 5 0190-8, 6-4 ####[facility] LABCLIA [id number] [place] [address] [place] Iron binding capacity [Mass/ volume] in Serum or Plasmaon 12-29-2023 Iron binding capacity [Mass/Vol] 313 ug/dL Normal 232-386 [facility] Comment on above: Order Comment: Speci men Type: BLOOD SPECIMENOrdering Facility: [facility] Address: [address] [place] [address] Performed By: #### 5 0190-8, 2275-4 ####[facility] LABIA [id number] [place] [address] [place] Iron saturation [Mass Fracti on] in Serum or Plasmaon 12-29-2023 Iron saturation [Mass fraction] 50.2 % 15.0-57.0 [facility] Iron+TIBC Pnl SerPlon 2023 Iron [Mass/Vol] 157 ug/dL Normal 41-186 [facility] Comment on above: Order Comment: Speci men Type: BLOOD SPECIMENOrdering Facility: [facility] Address: [address] [place] [address] Performed By: #### 5 0190-8, 6-4 ####[facility] LABIA [id number] [place] [address] [place] Leukocytes [#/volume] correc loreta for nucleated erythrocytes in Blood by Automated counon 12-29-2023 WBC corrected for nucl RBC Auto (Bld) [#/Vol] 7.13 k/uL 3.70-11.00 [facility] Lymphocytes [#/volume] in Bl ood by Automated counton 12-29-2023 Lymphocytes (Bld) [#/Vol] 1.84 10*3/uL Normal 1.00-4.00 [facility] Comment on above: Order Comment: Speci men Type: BLOOD SPECIMENOrdering Facility: [facility] Address: [address] [place] [address] Performed By: #### 5 7021-8 ####[facility] LABCLIA [id number] [place] [address] Lymphocytes/100 leukocytes i n Blood by Automated counton 12-29-2023 Lymphocytes/100 WBC (Bld) 25.8 % Normal [facility] Comment on above: Order Comment: Speci men Type: BLOOD SPECIMENOrdering Facility: [facility] Address: [address] [place] [address] Performed By: #### 5 7021-8 ####[facility] LABCLIA [id number] [place] [address] MCH [Entitic mass] by Automa loreta counton 12-29-2023 MCH (RBC) [Entitic mass] 31.8 pg Normal 26.0-34.0 [facility] Comment on above: Order Comment: Speci men Type: BLOOD SPECIMENOrdering Facility: [facility] Address: [address] [place] [address] Performed By: #### 5 7021-8 ####[facility] LABCLIA [id number] [place] [address] MCHC [Mass/volume] by Automa loreta counton 12-29-2023 MCHC (RBC) [Mass/Vol] 35.1 g/dL Normal 30.5-36.0 [facility] Comment on above: Order Comment: Speci men Type: BLOOD SPECIMENOrdering Facility: [facility] Address: [address] [place] [address] Performed By: #### 5 7021-8 ####[facility] LABCLIA [id number] [place] [address] MCV [Entitic volume] by Auto mated counton 12-29-2023 MCV (RBC) [Entitic vol] 90.4 fL Normal 80.0-100.0 [facility] Comment on above: Order Comment: Speci men Type: BLOOD SPECIMENOrdering Facility: [facility] Address: [address] [place] [address] Performed By: #### 5 7021-8 ####[facility] LABCLIA [id number] [place] [address] Neutrophils [#/volume] in Bl ood by Automated counton 12-29-2023 Neutrophils (Bld) [#/Vol] 3.96 10*3/uL Normal 1.45-7.50 [facility] Comment on above: Order Comment: Speci men Type: BLOOD SPECIMENOrdering Facility: [facility] Address: [address] [place] [address] Performed By: #### 5 7021-8 ####[facility] LABIA [id number] [place] [address] No Panel Informationon 12-28 Immature Granulocyte # (Auto) <0.03 k/uL <0.10 [facility] Nucleated erythrocytes [#/vo lume] in Blood by Automated counton 12-29-2023 Nucleated RBC (Bld) [#/Vol] 10*3/uL Normal <0.01 [facility] Comment on above: Order Comment: Speci men Type: BLOOD SPECIMENOrdering Facility: [facility] Address: [address] [place] [address] Performed By: #### 5 7021-8 ####[facility] LABIA [id number] [place] [address] Nucleated erythrocytes [Pres ence] in Blood by Automated counton 12-29-2023 Nucleated RBC Auto Ql (Bld) 0.0 /100{WBC} [facility] Platelet mean volume [Entiti c volume] in Blood by Automated counton 12-29-2023 Platelet mean volume (Bld) [Entitic vol] 11.9 fL Normal 9.0-12.7 [facility] Comment on above: Order Comment: Speci men Type: BLOOD SPECIMENOrdering Facility: [facility] Address: [address] [place] [address] Performed By: #### 5 7021-8 ####[facility] LABCLIA [id number] [place] [address] Platelets [#/volume] in Bloo d by Automated counton 12-29-2023 Platelets (Bld) [#/Vol] 177 10*3/uL Normal 150-400 [facility] Comment on above: Order Comment: Speci men Type: BLOOD SPECIMENOrdering Facility: [facility] Address: [address] [place] [address] Performed By: #### 5 7021-8 ####[facility] LABIA [id number] [place] [address] Office/Clinic Note-Physician on 12-15-2023 Office/Clinic Note-Physician [id number] 7#1.00TIFF Normal [facility] Consent for Treatmenton Consent for Treatment [id number] #1.00TIFF Normal [facility] Consultation Noteon 12-14-19 Consultation Note Patient: EBEN ARENAS Age: 63 years Sex: Male : 1960 Associated Diagnoses: None Author: Staci Kevin PA-C Basic Information Accompanied by: No one. Source of history: Self. Referral source: JULIA MCDANIELS MD. Chief Complaint 12/14/2023 13:38 EST low back pain History of Present Illness Patient is a 63-year-old male. He has a past medical history significant for lumbar spondylosis and chronic low back pain. Patient underwent bilateral L4-5 and L5-S1 facet medial branch block. This was done on 09/07/2023 and gave him 100% relief for a day. Unfortunate, patient then had some other medical issues. He had to undergo cardioversion. He is on Eliquis so he is no longer using Mobic. He states that he now would like to get set up to have the second medial branch block but due to location and office options he wants to transfer to our services. He is using baclofen once again with some relief but not quite enough. Patient has undergone previous physical therapy that did not help. He has undergone previous conservative treatments that did not help. The most improvement he has gotten has been from the medial branch block. Patient has a history of ablations done a few years ago that significantly helped him. His last ablation was approximately 3 years ago. He has back pain that he rates a 7/10 with any sort of activity. Review of Systems Constitutional: No fever, No chills. Eye: No recent visual problem. Ear/Nose/Mouth/Throa t: No decreased hearing. Respiratory: No shortness of breath, No cough. Cardiovascular: No chest pain. Gastrointestinal: No nausea, No vomiting. Genitourinary: No dysuria, No hematuria. Hematology/Lymphatic s: No bruising tendency, No bleeding tendency. Musculoskeletal: Back pain. Integumentary: No rash, No pruritus. Neurologic: Not alert and oriented X4, No numbness, No tingling. Psychiatric: No anxiety, No depression. Health Status Allergies: Allergic Reactions (Selected) Severity Not Documented Ativan- Fell over. Current medications: No qualifying data available Problem list: All Problems High iron content / SNOMED CT 158740590 / Confirmed Localized osteoarthritis of knees, bilateral / SNOMED CT 2532499399 / Confirmed Hypercholesteremia / SNOMED CT 00393647 / Confirmed Resolved: History of TIAs / SNOMED CT 1611525941 Resolved: Hypertension / SNOMED CT 7896557223 Histories Past Medical History: No active or resolved past medical history items have been selected or recorded. Family History: Bypass Mother COPD Father Alzheimer's disease Mother Procedure history: robot assisted Arthroplasty of knee (SNOMED CT 87676829) performed by Anupam Quesada DO on 08/05/2022 at 61 Years. Tibial osteotomy (SNOMED CT 743666849). Torn meniscus (SNOMED CT 652684572). Torn meniscus x2 (SNOMED CT 882984636). Radiofrequency ablation of medial branch of lumbar nerve using fluoroscopic guidance (SNOMED CT 3595308355). Social History Social & Psychosocial Habits Alcohol 07/18/2022 Use: Current Type: Liquor Frequency: Daily Comment: 1 shot at bedtime - 07/18/2022 08:10 - [place] NIEVES, Christine Substance Abuse 07/18/2022 Risk Assessment: Denies Substance Abuse Tobacco 07/18/2022 Risk Assessment: Denies Tobacco Use . Physical Examination Vital Signs (last 24 hrs) Last Charted Heart Rate Peripheral 74 bpm (DEC 13:38) SBP H 144 mmHg (DEC 13 13:38) DBP 88 mmHg (DEC 13:38) Weight 122.72 kg (DEC 13:) BMI 39.17 (DEC 13:38) General: Alert and oriented, No acute distress. Eye: Pupils are equal, round and reactive to light. HENT: Normocephalic, Normal hearing. Respiratory: Respirations are non-labored. Cardiovascular: No edema. Musculoskeletal Normal range of motion. Normal strength. 5/5 upper and lower extremity strength Pain with compression of the lumbar facet joints Increased lower back pain with facet loading. Neurologic: Alert, Oriented. Cognition and Speech: Oriented, Speech clear and coherent. Psychiatric: Cooperative, Appropriate mood & affect. Integumentary: Warm, Dry, [place]. Review / Management Results review: No qualifying data available . Lumbar x-ray. Report only. 08/10/2023. Severe multilevel lumbar spondylosis Impression and Plan Patient is a 63-year-old male with a past medical history significant for lumbar spondylosis and chronic lower back pain. Patient underwent recent bilateral L4-5 and L5-S1 facet medial branch block done on 09/07/2023 that gave him significant relief of his lower back pain. He had 100 recently relief for a day. Patient also has a history of significant relief of his lower back pain with previous RFA's. The last 1 was done a few years ago. Patient had a recent cardioversion and is now on Eliquis so he is not able to use his Mobic. He uses baclofen with some improvement. He has undergone previous conservative angelita (more content not included)... Normal [facility] Comment on above: Result Comment: Elec tronically Signed By: Herberth GRIFFIN, Staci\.br\Date and Time Signed: 12/14/23 14:16 EST\.br\Electronically Co-Signed By: David Cao DO\.br\Date and Time Co-Signed: 12/16/23 09:25 EST HIPAA Forms Officeon 024 HIPAA Forms Office [id number] #1.00TIFF Normal [facility] Legal Correspondence Officeo n 12-14-2023 Legal Correspondence Office [id number] #1.00TIFF Normal [facility] Legal Correspondence Office [id number] #1.00TIFF Normal [facility] Office/Clinic Note-Physician on 12-14-2023 Office/Clinic Note-Physician [id number] #1.00TIFF Normal [facility] Patient Correspondenceon Patient Correspondence [id number] #1.00TIFF Normal [facility] Patient Correspondence [id number] #1.00TIFF Normal [facility] Patient Correspondence [id number] #1.00TIFF Normal [facility] Patient Correspondence [id number] #1.00TIFF Normal [facility] Patient Correspondence [id number] #1.00TIFF Normal [facility] Patient History Officeon Patient History Office [id number] #1.00TIFF Normal [facility] Laboratory Outside Office Co pyon 12-04-2023 Laboratory Outside Office Copy [id number] 07#1.00TIFF Normal [facility] Outside Records Officeon Outside Records Office [id number] 46#1.00TIFF Normal [facility] Outside Records Office [id number] 31#1.00TIFF Normal [facility] Radiology Outside Office Senior Application Security Consultant yon 12-04-2023 Radiology Outside Office Copy [id number] 71#1.00TIFF Normal [facility] Referrals Officeon Referrals Office [id number] 66#1.00TIFF Normal [facility] Carbon dioxide, total [Moles /volume] in Serum or PlasmaOrdered By: Americo Rabago on 11-04-2023 CO2 [Moles/Vol] 26.6 mmol/L 21.0-31.0 [facility] Comment on above: Performed By: #### L YTES #### [facility] [address] Chloride [Moles/volume] in S giovanna or PlasmaOrdered By: Americo Rabago on 11-04-2023 Chloride [Moles/Vol] 108 mmol/L 98-107 [facility] Comment on above: Performed By: #### L YTES #### [facility] [address] ECG 12 lead ECGon 11-04-2023 ECG 12 lead ECG [facility] [place] [address] [place] [address] Electrocardiograph Report Signed Patient: Eben Arenas MR#: [id number] 358 : 1960 Acct:[id number] Age/Sex: 63 / M ADM Date: 11/04/23 Loc: PO Room: Type: [facility] Attending Dr: Americo Rabago MD Ordering Provider: Americo Rabago MD Date of Service: 11/03/23 ECG/ECG 12 lead ECG: Pre-cardioversion rhythm assessment Copies to: Test Reason : Blood Pressure : / mmHG Vent. Rate : 133 BPM Atrial Rate : 133 BPM P-R Int : 152 ms QRS Dur : 172 ms QT Int : 324 ms P-R-T Axes : 259 000 -52 degrees QTc Int : 482 ms Atrial flutter with 2 to 1 block Right bundle branch block Abnormal ECG No previous ECGs available Confirmed by AMANDEEP TRUONG MD ([id number]) on 11/05/2023 10:23:59 AM Referred By: Americo Rabago Electronically Signed By:AMANDEEP TRUONG MD Transcribed By: MUS Signed By Amandeep Truong MD 0 11/05/23 1024 Normal [facility] ECG post procedureon 024 ECG post procedure [facility] [place] [address] Electrocardiograph Report Signed Patient: Eben Arenas MR#: [id number] : 1960 Acct:[id number] Age/Sex: 63 / M ADM Date: 11/04/23 Loc: Room: Type: [facility] Attending Dr: Americo Rabago MD Ordering Provider: Americo Rabago MD Date of Service: 11/04/23/ ECG/ECG post procedure: CV Copies to: Test Reason : Blood Pressure : 114/078 mmHG Vent. Rate : 066 BPM Atrial Rate : 066 BPM P-R Int : 174 ms QRS Dur : 088 ms QT Int : 420 ms P-R-T Axes : 057 031 015 degrees QTc Int : 440 ms Sinus rhythm with premature atrial complexes with aberrant conduction Possible Left atrial enlargement Nonspecific ST and T wave abnormality Abnormal ECG When compared with ECG of 04-NOV-2023 07:51, (Unconfirmed) Sinus rhythm has replaced atral flutter Vent. rate has decreased BY 67 BPM Right bundle branch block is no longer present Confirmed by AMANDEEP TRUONG MD ([id number]) on 11/05/2023 10:24:36 AM Referred By: Americo Rabago Electronically Signed By:AMANDEEP TRUONG MD Transcribed By: MUS Signed By Amandeep Truong MD 0 11/05/23 1024 [facility] Potassium [Moles/volume] in Serum or PlasmaOrdered By: Americo Rabago on 11-04-2023 Potassium [Moles/Vol] 3.8 mmol/L 3.5-5.1 [facility] Comment on above: Performed By: #### L YTES #### [address] Serum or plasma anion gap de terminationOrdered By: Americo Rabago on 11-04-2023 Anion gap [Moles/Vol] 9.2 mmol/L 6.0-15.0 [facility] Comment on above: Result Comment: PERF ORMED BY: [place] [address] PATHOLOGIST [employer] ELEAZAR LINN M.D. Performed By: #### L YTES #### [address] Sodium [Moles/volume] in Ser um or PlasmaOrdered By: Americo Rabago on 11-04-2023 Sodium [Moles/Vol] 140 mmol/L 136-145 [facility] Comment on above: Performed By: #### L YTES #### [address] CNPNon 10-28-2023 CNPN Telephone (HEMASA) EBEN ARENAS ([id number]) 1960 M Date Time Provider Department 10/28/23 OLAF PANDYA During your visit today, we recorded the following information about you: Olaf Pandya, LIZBETH 10/28/2023 9:23 AM Signed ----- Message from Margarita Taylor PA-C sent at 10/28/2023 8:10 AM EST ----- Please call patient with testosterone level that he requested be done Olaf Pandya RN 10/28/2023 9:24 AM Signed VM left for pt with MM message below, and result. Encouraged to call PCP with any questions, needs or concerns regarding this result. Olaf Pandya RN Allergies As of Date: 10/28/2023 Noted Allergy Reaction LORAZEPAM 04/07/2013 14 - Other: See Comments Comments: Ceres like he will pass out EZETIMIBE-SIMVASTATI N 2023 16 - Unknown LAMOTRIGINE 2023 1 - Mental Status Change Date Reviewed: 2023 Reviewed by: Anselmo Mcpherson MD - Fully Assessed Reason for Visit: Results [95] Prescriptions as of 10/28/2023 - apixaban (ELIQUIS) 5 mg tab(s) Take 5 mg by mouth. - sotalol (BETAPACE) 80 mg tablet Take 1 tablet by mouth two times a day. - niacin (NIACIN) 500 mg tablet Take 500 mg by mouth daily with breakfast. - baclofen (LIORESAL) 10 mg tablet Take 10 mg by mouth as needed. - sildenafil (VIAGRA) 50 mg tablet TAKE 1 TABLET BY MOUTH NEEDED DAILY - lisinopril-hydroCHLO ROthiazide (PRINZIDE,ZESTORETIC ) 20-12.5 mg per tablet - IBUPROFEN ORAL Take by mouth. Problem List As Of Date 10/28/2023 Noted Resolved S/P right knee arthroscopy [Z98.890] 09/12/2016 Primary osteoarthritis of right knee [M17.11] 09/12/2016 S/P right knee yen tibial osteotomy and arthr*10/08/2016 Numbness of left foot [R20.0] 02/16/2017 Secondary polycythemia [D75.1] 07/18/2019 Encounter Status:Closed by OLAF PANDYA on 10/28/23 Normal [facility] CBC W Auto Differential pane l (Bld)on 2023 Basophils (Bld) [#/Vol] 0.07 10*3/uL Normal <0.11 [facility] Comment on above: Order Comment: Speci men Type: BLOOD SPECIMENOrdering Facility: [facility] Address: [address] [place] [address] [place] [address] Performed By: #### 5 7021-8 ####[facility] LABCLIA [id number] [place] [address] Basophils/100 WBC (Bld) 1.1 % Normal [facility] Comment on above: Order Comment: Speci men Type: BLOOD SPECIMENOrdering Facility: [facility] Address: [address] [place] [address] Performed By: #### 5 7021-8 ####[facility] LABCLIA [id number] [place] [address] Differential cell count method Nom (Bld) Auto Normal [facility] Comment on above: Order Comment: Speci men Type: BLOOD SPECIMENOrdering Facility: [facility] Address: [address] [place] [address] Performed By: #### 5 7021-8 ####[facility] LABCLIA [id number] [place] [address] Eosinophils (Bld) [#/Vol] 0.35 10*3/uL Normal <0.46 [facility] Comment on above: Order Comment: Speci men Type: BLOOD SPECIMENOrdering Facility: [facility] Address: [address] [place] [address] Performed By: #### 5 7021-8 ####[facility] LABCLIA [id number] [place] [address] Eosinophils/100 WBC (Bld) 5.5 % Normal [facility] Comment on above: Order Comment: Speci men Type: BLOOD SPECIMENOrdering Facility: [facility] Address: [address] [place] [address] Performed By: #### 5 7021-8 ####[facility] LABCLIA [id number] [place] [address] Erythrocyte distribution width (RBC) [Ratio] 13.1 % Normal 11.5-15.0 [facility] Comment on above: Order Comment: Speci men Type: BLOOD SPECIMENOrdering Facility: [facility] Address: [address] [place] [address] Performed By: #### 5 7021-8 ####[facility] LABCLIA [id number] [place] [address] Hematocrit (Bld) [Volume fraction] 53.2 % High 39.0-51.0 [facility] Comment on above: Order Comment: Speci men Type: BLOOD SPECIMENOrdering Facility: [facility] Address: [address] [place] [address] Performed By: #### 5 7021-8 ####[facility] LABCLIA [id number] [place] [address] Hemoglobin (Bld) [Mass/Vol] 18.2 g/dL High 13.0-17.0 [facility] Comment on above: Order Comment: Speci men Type: BLOOD SPECIMENOrdering Facility: [facility] Address: [address] [place] [address] Performed By: #### 5 7021-8 ####[facility] LABCLIA [id number] [place] [address] Immature granulocytes (Bld) [#/Vol] 10*3/uL Normal <0.10 [facility] Comment on above: Order Comment: Speci men Type: BLOOD SPECIMENOrdering Facility: [facility] Address: [address] [place] [address] Performed By: #### 5 7021-8 ####[facility] LABCLIA [id number] [place] [address] Immature granulocytes/100 WBC (Bld) 0.3 % Normal [facility] Comment on above: Order Comment: Speci men Type: BLOOD SPECIMENOrdering Facility: [facility] Address: [address] [place] [address] Performed By: #### 5 7021-8 ####[facility] LABCLIA [id number] [place] [address] Lymphocytes (Bld) [#/Vol] 1.83 10*3/uL Normal 1.00-4.00 [facility] Comment on above: Order Comment: Speci men Type: BLOOD SPECIMENOrdering Facility: [facility] Address: [address] [place] [address] Performed By: #### 5 7021-8 ####[facility] LABCLIA [id number] [place] [address] Lymphocytes/100 WBC (Bld) 28.9 % Normal [facility] Comment on above: Order Comment: Speci men Type: BLOOD SPECIMENOrdering Facility: [facility] Address: [address] [place] [address] Performed By: #### 5 7021-8 ####[facility] LABCLIA [id number] [place] [address] MCH (RBC) [Entitic mass] 30.6 pg Normal 26.0-34.0 [facility] Comment on above: Order Comment: Speci men Type: BLOOD SPECIMENOrdering Facility: [facility] Address: [address] [place] [address] Performed By: #### 5 7021-8 ####[facility] LABCLIA [id number] [place] [address] MCHC (RBC) [Mass/Vol] 34.2 g/dL Normal 30.5-36.0 [facility] Comment on above: Order Comment: Speci men Type: BLOOD SPECIMENOrdering Facility: [facility] Address: [address] [place] [address] Performed By: #### 5 7021-8 ####[facility] LABCLIA [id number] [place] [address] MCV (RBC) [Entitic vol] 89.6 fL Normal 80.0-100.0 [facility] Comment on above: Order Comment: Speci men Type: BLOOD SPECIMENOrdering Facility: [facility] Address: [address] [place] [address] Performed By: #### 5 7021-8 ####[facility] LABCLIA [id number] [place] [address] Monocytes (Bld) [#/Vol] 0.66 10*3/uL Normal <0.87 [facility] Comment on above: Order Comment: Speci men Type: BLOOD SPECIMENOrdering Facility: [facility] Address: [address] [place] [address] Performed By: #### 5 7021-8 ####[facility] LABCLIA [id number] [place] [address] Monocytes/100 WBC (Bld) 10.4 % Normal [facility] Comment on above: Order Comment: Speci men Type: BLOOD SPECIMENOrdering Facility: [facility] Address: [address] [place] [address] Performed By: #### 5 7021-8 ####[facility] LABCLIA [id number] [place] [address] Neutrophils (Bld) [#/Vol] 3.40 10*3/uL Normal 1.45-7.50 [facility] Comment on above: Order Comment: Speci men Type: BLOOD SPECIMENOrdering Facility: [facility] Address: [address] [place] [address] Performed By: #### 5 7021-8 ####[facility] LABCLIA [id number] [place] [address] Neutrophils/100 WBC (Bld) 53.8 % Normal [facility] Comment on above: Order Comment: Speci men Type: BLOOD SPECIMENOrdering Facility: [facility] Address: [address] [place] [address] Performed By: #### 5 7021-8 ####[facility] LABCLIA [id number] [place] [address] Nucleated RBC (Bld) [#/Vol] 10*3/uL Normal <0.01 [facility] Comment on above: Order Comment: Speci men Type: BLOOD SPECIMENOrdering Facility: [facility] Address: [address] [place] [address] Performed By: #### 5 7021-8 ####[facility] LABCLIA [id number] [place] [address] Nucleated RBC/100 WBC (Bld) [Ratio] 0.0 /100 WBC Normal [facility] Comment on above: Order Comment: Speci men Type: BLOOD SPECIMENOrdering Facility: [facility] Address: [address] [place] [address] Performed By: #### 5 7021-8 ####[facility] LABIA [id number] [place] [address] Platelet mean volume (Bld) [Entitic vol] 12.2 fL Normal 9.0-12.7 [facility] Comment on above: Order Comment: Speci men Type: BLOOD SPECIMENOrdering Facility: [facility] Address: [address] [place] [address] Performed By: #### 5 7021-8 ####[facility] LABIA [id number] [place] [address] Platelets (Bld) [#/Vol] 147 10*3/uL Low 150-400 [facility] Comment on above: Order Comment: Speci men Type: BLOOD SPECIMENOrdering Facility: [facility] Address: [address] [place] [address] Performed By: #### 5 7021-8 ####[facility] LABIA [id number] [place] [address] RBC (Bld) [#/Vol] 5.94 10*6/uL Normal 4.20-6.00 [facility] Comment on above: Order Comment: Speci men Type: BLOOD SPECIMENOrdering Facility: [facility] Address: [address] [place] [address] Performed By: #### 5 7021-8 ####[facility] LABCLIA [id number] [place] [address] WBC (Bld) [#/Vol] 6.33 10*3/uL Normal 3.70-11.00 [facility] Comment on above: Order Comment: Speci men Type: BLOOD SPECIMENOrdering Facility: [facility] Address: [place] [address] Performed By: #### 5 7021-8 ####[facility] LABCLIA [id number] [place] [address] CNOVSPon 2023 CNOVSP Visit (SP) Office (HEMASA) DAGOBERTOEBEN DOUGLASS ([id number]) 1960 M Date Time Provider Department 10/27/23 9:00 AM ANSELMO MCPHERSON During your visit today, we recorded the following information about you: Temperature Pulse Respiration Blood pressure 97.3 degrees 128/minute 16/minute 108/84 Weight Height 125.9 kg 1.772 m Anselmo Mcpherson MD 2023 9:49 AM Signed PATIENT NAME: Eben Arenas CLINIC NO.: [id number] ATTENDING PHYSICIAN: Anselmo Mcpherson MD DATE OF SERVICE: 2023 Some of the elements of this note have been copied from my previous progress note dated 12/17/2022. All the information has been reviewed carefully. Dear Dr. APONTE here is an update on a follow up visit on male Eben Arenas at the clinic 2023 Diagnosis: 1. 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 HPI: Eben Arenas is a 63 year old year old male here for follow up. He has been diagnosed with afib and planning cardioversion next week. On Eliquis as well. PAST MEDICAL HISTORY Diagnosis Date Former smoker HLD (hyperlipidemia) CHITIMACHA (hard of hearing) HTN (hypertension) Long-term use of aspirin therapy OA (osteoarthritis) of knee Polycythemia S/P right knee arthroscopy TIA (transient ischemic attack) Social History Tobacco Use Smoking status: Former Passive exposure: Past Smokeless tobacco: Former Types: Chew Quit date: 09/12/2016 Tobacco comments: QUIT 15 YEARS AGO Vaping Use Vaping Use: Never used Substance Use Topics Alcohol use: Yes Comment: rare Drug use: No FAMILY HISTORY Problem Relation Age of Onset Lipids Mother Hypertension Mother Hypertension Father Lipids Father Past medical, social and family history reviewed without any changes. REVIEW OF SYSTEMS GENERAL: No weight loss, malaise or fevers. No night sweats. HEENT: Negative for headaches, No changes in hearing or vision, no nose bleeds or other nasal problems. RESPIRATORY: Negative for cough, wheezing and shortness of breath CARDIOVASCULAR: Negative for chest pain, leg swelling and palpitations GI: Negative for abdominal discomfort, blood in stools or black stools and change in bowel habits : Negative for dysuria, frequency and incontinence MUSCULOSKELETAL: Negative for joint pain or swelling, back pain, and muscle pain. SKIN: Negative for lesions, rash, and itching. HEMATOLOGY/LYMPHOLOG Y Negative for prolonged bleeding, bruising easily, and swollen nodes. NEURO: Negative for numbness or tingling of hands/feet. No weakness. PHYSICAL EXAMINATION: BP 108/84 Pulse 128 Temp (Src) 97.3 (Temporal) Resp 16 Ht 5' 9.764 (1.77m) Wt 277 lb 9 oz (125.9kg) SpO2 95% BMI 40.10 kg/(m2). Wt 130.2 kg (287 lb) BMI 41.46 kg/m2 Last 3 Encounter Wt Readings: Date: Wt: 08/15/2019 130.2 kg (287 lb) 07/18/2019 127.4 kg (280 lb 12.8 oz) 09/19/2016 117.9 kg (260 lb) General appearance:ECOG PERFORMANCE STATUS: 0- Fully active, able to carry on all pre-disease performance w/o restriction. Patient in NAD. Skin: Skin color, texture, turgor normal. No rashes or lesions. Eyes: Anicteric sclera. Pupils are equally round and reactive to light. Extraocular movements are intact. Lymph Nodes: No cervical, supraclavicular, axillary or inguinal adenopathy. Oropharynx: Lips, mucosa, and tongue normal. Back: No pain to percussion. Negative SLR test Lungs clear to auscultation, No wheezing or rhonchi Heart: RRR without murmur, gallop, or rubs. Abdomen soft, non-tender. No masses, organomegaly Extremities: No deformities. No edema Neuro: Gait and speech normal. Reflexes normal and symmetric. Muscular strength intact. Sensation grossly intact. Rectal: Deferred : Deferred LABS: Glucose (mg/dL) Date Value 2023 135 10/21/2019 Requisitioning entry error Potassium (mmol/L) Date Value 2023 3.8 10/21/2019 Requisitioning entry error Sodium (mmol/L) Date Value 2023 141 10/21/2019 Requisitioning entry error Chloride (mmol/L) Date Value 2023 108 10/21/2019 Requisitioning entry error CO2 (mmol/L) Date Value 2023 23 10/21/2019 Requisitioning entry error Creatinine (mg/dL) Date Value 2023 1.01 10/21/2019 Requisitioning entry error BUN (mg/dL) Date Value 2023 12 10/21/2019 Requisitioning entry error Anion Gap (mmol/L) Date Value 2023 10 10/21/2019 Requisitioning entry error Calcium (mg/dL) Date Value 10/21/2019 Requisitioning entry error Calcium, Total (mg/dL) Date Value 2023 9.0 Protein, Total (g/dL) Date Value 2023 6.4 10/21/2019 Requisitioning entry error Albumin (g/dL) Date Value 2023 3.9 10/21/2019 Requisitioning entry error (more content not included)... Normal [facility] Comprehensive metabolic 2000 panelon 2023 Albumin [Mass/Vol] 3.9 g/dL Normal 3.9-4.9 [facility] Comment on above: Order Comment: Speci men Type: BLOOD SPECIMENOrdering Facility: [facility] Address: [facility] [place] [place] [address] Performed By: #### 2 4323-8 ####[facility] LABCLIA [id number] [place] [address] ALP [Catalytic activity/Vol] 90 U/L Normal 38-113 [facility] Comment on above: Order Comment: Speci men Type: BLOOD SPECIMENOrdering Facility: [facility] Address: [address] [place] [address] Performed By: #### 2 4323-8 ####[facility] LABCLIA [id number] [place] [address] ALT [Catalytic activity/Vol] 40 U/L Normal 10-54 [facility] Comment on above: Order Comment: Speci men Type: BLOOD SPECIMENOrdering Facility: [facility] Address: [address] [place] [address] Performed By: #### 2 4323-8 ####[facility] LABCLIA [id number] [place] [address] Anion gap [Moles/Vol] 10 mmol/L Normal 9-18 [facility] Comment on above: Order Comment: Speci men Type: BLOOD SPECIMENOrdering Facility: [facility] Address: [address] [place] [address] Performed By: #### 2 4323-8 ####[facility] LABCLIA [id number] [place] [address] AST [Catalytic activity/Vol] 28 U/L Normal 14-40 [facility] Comment on above: Order Comment: Speci men Type: BLOOD SPECIMENOrdering Facility: [facility] Address: [address] [place] [address] Performed By: #### 2 4323-8 ####[facility] LABCLIA [id number] [place] [address] Bilirubin [Mass/Vol] 0.8 mg/dL Normal 0.2-1.3 [facility] Comment on above: Order Comment: Speci men Type: BLOOD SPECIMENOrdering Facility: [facility] Address: [address] [place] [address] Performed By: #### 2 4323-8 ####[facility] LABCLIA [id number] [place] [address] Calcium [Mass/Vol] 9.0 mg/dL Normal 8.5-10.2 [facility] Comment on above: Order Comment: Speci men Type: BLOOD SPECIMENOrdering Facility: [facility] Address: [address] [place] [address] Performed By: #### 2 4323-8 ####[facility] LABCLIA [id number] [place] [address] Chloride [Moles/Vol] 108 mmol/L High 97-105 [facility] Comment on above: Order Comment: Speci men Type: BLOOD SPECIMENOrdering Facility: [facility] Address: [address] [place] [address] Performed By: #### 2 4323-8 ####[facility] LABCLIA [id number] [place] [address] CO2 [Moles/Vol] 23 mmol/L Normal 22-30 [facility] Comment on above: Order Comment: Speci men Type: BLOOD SPECIMENOrdering Facility: [facility] Address: [address] [place] [address] Performed By: #### 2 4323-8 ####[facility] LABCLIA [id number] [place] [address] Creatinine [Mass/Vol] 1.01 mg/dL Normal 0.73-1.22 [facility] Comment on above: Order Comment: Speci men Type: BLOOD SPECIMENOrdering Facility: [facility] Address: [address] [place] [address] Performed By: #### 2 4323-8 ####[facility] LABCLIA [id number] [place] [address] Creatinine and Glomerular filtration rate.predicted panel (S/P/Bld) 83 mL/min/1.73m??? Normal >=60 [facility] Comment on above: Order Comment: Benito henry Type: BLOOD SPECIMENOrdering Facility: [facility] Address: [address] [place] [address] Result Comment: Nyla mated Glomerular Filtration Rate (eGFR) is calculated using the 2020 CKD-EPI creatinine equation. This equation utilizes serum creatinine, sex, and age as parameters. The creatinine assay has traceable calibration to isotope dilution-mass spectrometry. Refer to KDIGO guidelines for clinical interpretation. In patients with unstable renal function, e.g. those with acute kidney injury, the eGFR may not accurately reflect actual GFR. Performed By: #### 2 4323-8 ####[facility] LABCLIA [id number] [place] [address] Glucose [Mass/Vol] 135 mg/dL High 74-99 [facility] Comment on above: Order Comment: Benito henry Type: BLOOD SPECIMENOrdering Facility: [facility] Address: [address] [place] [address] Result Comment: The [place] Diabetes Association (ADA) provides guidance for cutoff values for fasting glucose and random glucose. The ADA defines fasting as no caloric intake for at least 8 hours. Fasting plasma glucose results between 100 to 125 mg/dL indicate increased risk for diabetes (prediabetes). Fasting plasma glucose results greater than or equal to 126 mg/dL meet the criteria for diagnosis of diabetes. In the absence of unequivocal hyperglycemia, results should be confirmed by repeat testing. In a patient with classic symptoms of hyperglycemia or hyperglycemic crisis, random plasma glucose results greater than or equal to 200 mg/dL meet the criteria for diagnosis of diabetes. Reference: Standards of Medical Care in Diabetes 2016, [place] [employer]. Diabetes Care. 2016.39(Suppl 1). Performed By: #### 2 4323-8 ####[facility] LABCLIA [id number] [place] [address] Potassium [Moles/Vol] 3.8 mmol/L Normal 3.7-5.1 [facility] Comment on above: Order Comment: Benito henry Type: BLOOD SPECIMENOrdering Facility: [facility] Address: [address] [place] [address] Performed By: #### 2 4323-8 ####[facility] LABCLIA [id number] [place] [address] Protein [Mass/Vol] 6.4 g/dL Normal 6.3-8.0 [facility] Comment on above: Order Comment: Speci men Type: BLOOD SPECIMENOrdering Facility: [facility] Address: [address] [place] [address] Performed By: #### 2 4323-8 ####[facility] LABCLIA [id number] [place] [address] Sodium [Moles/Vol] 141 mmol/L Normal 136-144 [facility] Comment on above: Order Comment: Speci men Type: BLOOD SPECIMENOrdering Facility: [facility] Address: [address] [place] [address] Performed By: #### 2 4323-8 ####[facility] LABCLIA [id number] [place] [address] Urea nitrogen [Mass/Vol] 12 mg/dL Normal 9-24 [facility] Comment on above: Order Comment: Speci men Type: BLOOD SPECIMENOrdering Facility: [facility] Address: [address] [place] [address] Performed By: #### 2 4323-8 ####[facility] LABCLIA [id number] [place] [address] Testost SerPl-mCncon 024 Testosterone [Mass/Vol] 168 ng/dL Low 193-824 C [facility] Comment on above: Order Comment: Speci men Type: BLOOD SPECIMENOrdering Facility: [facility] Address: [address] [place] [address] Result Comment: A te stosterone level in the 193-320 ng/dL range with associated clinical symptoms is considered low and may indicate hypogonadism (from [facility] 2010 363:123-135). Results >320 ng/dL are considered normal. Performed By: #### 2 986-8 ####[facility] LABCLIA [id number] [place] [address] [place] ECG 12 Leadon 10-07-2023 Atrial flutter with 2-1 conduction and a ventricular response of 159 bpm Left axis deviation interventricular conduction delay Loss of inferior forces QTc [address] [facility] Work Phone: [facility] Work Phone: CNPNon 09-30-2023 CNPN Telephone (HEMASA) EBEN ARENAS ([id number]) 1960 Tank Date Time Provider Department 09/30/23 MARGARITA TAYLOR During your visit today, we recorded the following information about you: Margarita Taylor PA-C 09/30/2023 3:11 PM Signed Please call patient and advise that after discussing testosterone discontinuation with pharmacy, they recommended he see urology to be sure it is done properly. The other option is to see if [facility] does this as well. Thanks ELIAS Mariee Natalie, RN 09/30/2023 3:26 PM Signed Pt aware of MM message. He will continue medication until he can figure out how to DC safely. Pt is calling [facility] to see if they are able to do this. If not, he will get a urology referral on 10/27/23 appointment. Olaf Pandya RN Allergies As of Date: 09/30/2023 Noted Allergy Reaction LORAZEPAM 04/07/2013 14 - Other: See Comments Comments: Ceres like he will pass out Date Reviewed: 09/30/2023 Reviewed by: Margarita Taylor PA-C - Fully Assessed Reason for Visit: Patient Question [5217] Prescriptions as of 09/30/2023 - semaglutide (OZEMPIC SUBCUTANEOUS) Inject subcutaneously. - amoxicillin-clavulan ic acid (AUGMENTIN) 875-125 mg per tablet Take 1 tablet by mouth twice daily. - meloxicam (MOBIC) 15 mg tablet TAKE 1 TABLET BY MOUTH EVERY DAY FOR 30 DAYS - niacin (NIACIN) 500 mg tablet Take 500 mg by mouth daily with breakfast. - baclofen (LIORESAL) 10 mg tablet Take 10 mg by mouth as needed. - sildenafil (VIAGRA) 50 mg tablet TAKE 1 TABLET BY MOUTH NEEDED DAILY - lisinopril-hydroCHLO ROthiazide (PRINZIDE,ZESTORETIC ) 20-12.5 mg per tablet - IBUPROFEN ORAL Take by mouth. - aspirin 325 mg tablet Take 325 mg by mouth once daily. Problem List As Of Date 09/30/2023 Noted Resolved S/P right knee arthroscopy [Z98.890] 09/12/2016 Primary osteoarthritis of right knee [M17.11] 09/12/2016 S/P right knee yen tibial osteotomy and arthr*10/08/2016 Numbness of left foot [R20.0] 02/16/2017 Secondary polycythemia [D75.1] 07/18/2019 Encounter Status:Closed by OLAF PANDYA on 09/30/23 Normal [facility] CBC W Auto Differential pane l (Bld)on 09-29-2023 Basophils (Bld) [#/Vol] 0.06 10*3/uL Normal <0.11 [facility] Comment on above: Order Comment: Speci men Type: BLOOD SPECIMENOrdering Facility: [facility] Address: [address] [place] [address] Performed By: #### 5 7021-8 ####[facility] LABCLIA [id number] [place] [address] Basophils/100 WBC (Bld) 1.0 % Normal C [facility] Comment on above: Order Comment: Speci men Type: BLOOD SPECIMENOrdering Facility: [facility] Address: [address] [place] [address] Performed By: #### 5 7021-8 ####[facility] LABCLIA [id number] [place] [address] Differential cell count method Nom (Bld) Auto Normal [facility] Comment on above: Order Comment: Speci men Type: BLOOD SPECIMENOrdering Facility: [facility] Address: [address] [place] [address] Performed By: #### 5 7021-8 ####[facility] LABCLIA [id number] [place] [address] Eosinophils (Bld) [#/Vol] 0.38 10*3/uL Normal <0.46 [facility] Comment on above: Order Comment: Speci men Type: BLOOD SPECIMENOrdering Facility: [facility] Address: [address] [place] [address] Performed By: #### 5 7021-8 ####[facility] LABCLIA [id number] [place] [address] Eosinophils/100 WBC (Bld) 6.4 % Normal [facility] Comment on above: Order Comment: Speci men Type: BLOOD SPECIMENOrdering Facility: [facility] Address: [address] [place] [address] Performed By: #### 5 7021-8 ####[facility] LABCLIA [id number] [place] [address] Erythrocyte distribution width (RBC) [Ratio] 13.6 % Normal 11.5-15.0 [facility] Comment on above: Order Comment: Speci men Type: BLOOD SPECIMENOrdering Facility: [facility] Address: [address] [place] [address] Performed By: #### 5 7021-8 ####[facility] LABIA [id number] [place] [address] Hematocrit (Bld) [Volume fraction] 56.9 % High 39.0-51.0 [facility] Comment on above: Order Comment: Speci men Type: BLOOD SPECIMENOrdering Facility: [facility] Address: [address] [place] [address] Performed By: #### 5 7021-8 ####[facility] LABCLIA [id number] [place] [address] Hemoglobin (Bld) [Mass/Vol] 18.8 g/dL High 13.0-17.0 [facility] Comment on above: Order Comment: Speci men Type: BLOOD SPECIMENOrdering Facility: [facility] Address: [address] [place] [address] Performed By: #### 5 7021-8 ####[facility] LABCLIA [id number] [place] [address] Immature granulocytes (Bld) [#/Vol] 10*3/uL Normal <0.10 [facility] Comment on above: Order Comment: Speci men Type: BLOOD SPECIMENOrdering Facility: [facility] Address: [address] [place] [address] Performed By: #### 5 7021-8 ####[facility] LABCLIA [id number] [place] [address] Immature granulocytes/100 WBC (Bld) 0.2 % Normal [facility] Comment on above: Order Comment: Speci men Type: BLOOD SPECIMENOrdering Facility: [facility] Address: [address] [place] [address] Performed By: #### 5 7021-8 ####[facility] LABCLIA [id number] [place] [address] Lymphocytes (Bld) [#/Vol] 1.41 10*3/uL Normal 1.00-4.00 [facility] Comment on above: Order Comment: Speci men Type: BLOOD SPECIMENOrdering Facility: [facility] Address: [address] [place] [address] Performed By: #### 5 7021-8 ####[facility] LABCLIA [id number] [place] [address] Lymphocytes/100 WBC (Bld) 23.6 % Normal [facility] Comment on above: Order Comment: Speci men Type: BLOOD SPECIMENOrdering Facility: [facility] Address: [address] [place] [address] Performed By: #### 5 7021-8 ####[facility] LABCLIA [id number] [place] [address] MCH (RBC) [Entitic mass] 30.4 pg Normal 26.0-34.0 [facility] Comment on above: Order Comment: Speci men Type: BLOOD SPECIMENOrdering Facility: [facility] Address: [address] [place] [address] Performed By: #### 5 7021-8 ####[facility] LABCLIA [id number] [place] [address] MCHC (RBC) [Mass/Vol] 33.0 g/dL Normal 30.5-36.0 [facility] Comment on above: Order Comment: Speci men Type: BLOOD SPECIMENOrdering Facility: [facility] Address: [address] [place] [address] Performed By: #### 5 7021-8 ####[facility] LABCLIA [id number] [place] [address] MCV (RBC) [Entitic vol] 92.1 fL Normal 80.0-100.0 C [facility] Comment on above: Order Comment: Speci men Type: BLOOD SPECIMENOrdering Facility: [facility] Address: [address] [place] [address] Performed By: #### 5 7021-8 ####[facility] LABCLIA [id number] [place] [address] Monocytes (Bld) [#/Vol] 0.70 10*3/uL Normal <0.87 [facility] Comment on above: Order Comment: Speci men Type: BLOOD SPECIMENOrdering Facility: [facility] Address: [address] [place] [address] Performed By: #### 5 7021-8 ####[facility] LABCLIA [id number] [place] [address] Monocytes/100 WBC (Bld) 11.7 % Normal C [facility] Comment on above: Order Comment: Speci men Type: BLOOD SPECIMENOrdering Facility: [facility] Address: [address] [place] [address] Performed By: #### 5 7021-8 ####[facility] LABCLIA [id number] [place] [address] Neutrophils (Bld) [#/Vol] 3.42 10*3/uL Normal 1.45-7.50 [facility] Comment on above: Order Comment: Speci men Type: BLOOD SPECIMENOrdering Facility: [facility] Address: [address] [place] [address] Performed By: #### 5 7021-8 ####[facility] LABCLIA [id number] [place] [address] Neutrophils/100 WBC (Bld) 57.1 % Normal [facility] Comment on above: Order Comment: Speci men Type: BLOOD SPECIMENOrdering Facility: [facility] Address: [address] [place] [address] Performed By: #### 5 7021-8 ####[facility] LABCLIA [id number] [place] [address] Nucleated RBC (Bld) [#/Vol] 10*3/uL Normal <0.01 [facility] Comment on above: Order Comment: Speci men Type: BLOOD SPECIMENOrdering Facility: [facility] Address: [address] [place] [address] Performed By: #### 5 7021-8 ####[facility] LABIA [id number] [place] [address] Nucleated RBC/100 WBC (Bld) [Ratio] 0.0 /100 WBC Normal [facility] Comment on above: Order Comment: Speci men Type: BLOOD SPECIMENOrdering Facility: [facility] Address: [address] [place] [address] Performed By: #### 5 7021-8 ####[facility] LABCLIA [id number] [place] [address] Platelet mean volume (Bld) [Entitic vol] 12.3 fL Normal 9.0-12.7 [facility] Comment on above: Order Comment: Speci men Type: BLOOD SPECIMENOrdering Facility: [facility] Address: [address] [place] [address] Performed By: #### 5 7021-8 ####[facility] LABCLIA [id number] [place] [address] Platelets (Bld) [#/Vol] 146 10*3/uL Low 150-400 [facility] Comment on above: Order Comment: Speci men Type: BLOOD SPECIMENOrdering Facility: [facility] Address: [address] [place] [address] Performed By: #### 5 7021-8 ####[facility] LABCLIA [id number] [place] [address] RBC (Bld) [#/Vol] 6.18 10*6/uL High 4.20-6.00 [facility] Comment on above: Order Comment: Speci men Type: BLOOD SPECIMENOrdering Facility: [facility] Address: [address] [place] [address] Performed By: #### 5 7021-8 ####[facility] LABCLIA [id number] [place] [address] WBC (Bld) [#/Vol] 5.98 10*3/uL Normal 3.70-11.00 [facility] Comment on above: Order Comment: Speci men Type: BLOOD SPECIMENOrdering Facility: [facility] Address: [address] [place] [address] Performed By: #### 5 7021-8 ####[facility] LABCLIA [id number] [place] [address] CNOVSPon 12--2023 [facility] Visit (SP) Office (HEMASA) EBEN ARENAS ([id number]) 1960 Date Time Provider Department 09/29/23 3:00 PM MARGARITA TAYLOR HEMASA During your visit today, we recorded the following information about you: Temperature Pulse Respiration Blood pressure 97.8 degrees 81/minute 16/minute 149/83 Weight Height 128.2 kg 1.772 m Dinora Buitrago MA 09/29/2023 2:47 PM Signed Patient states that when checking his hemoglobin at home it was over 18. He states he feels no different which makes him nervous he does not want to have a stroke. FAMILIA Caraballo Mindy M, PA-C 09/29/2023 3:38 PM Signed PATIENT NAME: Eben K Dagoberto CLINIC NO.: [id number] ATTENDING PHYSICIAN: Anselmo Mcpherson MD DATE OF SERVICE: September 29, 2023 (Elements copied from Dr. Mcpherson's note dated Aug 26, 2023, have been reviewed and updated where appropriate, and all reflect current assessment and medical decision making during today's encounter, September 29, 2023) CC: Follow up Diagnosis: 1. 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 HPI: Eben returns for follow up. Had phlebotomy last month, and since that time has cut back on his testosterone dose to half the dose he was taking each week. His hgb has remained elevated at home around 18.4-18.9. He is concerned about this. He has upcoming shoulder surgery as well. He would like to try to come off of testosterone but Is unsure how since he is been on it for year. He feels fine. Denies any headaches. PAST MEDICAL HISTORY Diagnosis Date Former smoker HLD (hyperlipidemia) CHITIMACHA (hard of hearing) HTN (hypertension) Long-term use of aspirin therapy OA (osteoarthritis) of knee Polycythemia S/P right knee arthroscopy TIA (transient ischemic attack) Social History Tobacco Use Smoking status: Former Passive exposure: Past Smokeless tobacco: Former Types: Chew Quit date: 09/12/2016 Tobacco comments: QUIT 15 YEARS AGO Vaping Use Vaping Use: Never used Substance Use Topics Alcohol use: Yes Comment: rare Drug use: No FAMILY HISTORY Problem Relation Age of Onset Lipids Mother Hypertension Mother Hypertension Father Lipids Father Past medical, social and family history reviewed without any changes. REVIEW OF SYSTEMS GENERAL: No weight loss, malaise or fevers. No night sweats. HEENT: Negative for headaches, No changes in hearing or vision, no nose bleeds or other nasal problems. RESPIRATORY: Negative for cough, wheezing and shortness of breath CARDIOVASCULAR: Negative for chest pain, leg swelling and palpitations GI: Negative for abdominal discomfort, blood in stools or black stools and change in bowel habits : Negative for dysuria, frequency and incontinence MUSCULOSKELETAL: Negative for joint pain or swelling, back pain, and muscle pain. SKIN: Negative for lesions, rash, and itching. HEMATOLOGY/LYMPHOLOG Y Negative for prolonged bleeding, bruising easily, and swollen nodes. NEURO: Negative for numbness or tingling of hands/feet. No weakness. PHYSICAL EXAMINATION: BP 149/83 Pulse 81 Temp (Src) 97.8 (Temporal) Resp 16 Ht 5' 9.764 (1.77m) Wt 282 lb 10.1 oz (128.2kg) SpO2 100% BMI 40.83 kg/(m2). ECOG PERFORMANCE STATUS: 0- Fully active, able to carry on all pre-disease performance w/o restriction. General: Alert and oriented, no distress, pleasant and cooperative. Heart: Regular, normal S1 and S2, no murmurs, rubs, or gallops Lungs: Clear to auscultation bilaterally Abdomen: Benign Extremities: Feet/ankles without edema, posterior tibial pulses full and symmetrical LABS: Glucose (mg/dL) Date Value 08/26/2023 91 10/21/2019 Requisitioning entry error Potassium (mmol/L) Date Value 08/26/2023 3.7 10/21/2019 Requisitioning entry error Sodium (mmol/L) Date Value 08/26/2023 140 10/21/2019 Requisitioning entry error Chloride (mmol/L) Date Value 08/26/2023 102 10/21/2019 Requisitioning entry error CO2 (mmol/L) Date Value 08/26/2023 29 10/21/2019 Requisitioning entry error Creatinine (mg/dL) Date Value 08/26/2023 1.20 10/21/2019 Requisitioning entry error BUN (mg/dL) Date Value 08/26/2023 9 10/21/2019 Requisitioning entry error Anion Gap (mmol/L) Date Value 08/26/2023 9 10/21/2019 Requisitioning entry error Calcium (mg/dL) Date Value 10/21/2019 Requisitioning entry error Calcium, Total (mg/dL) Date Value 08/26/2023 9.4 Protein, Total (g/dL) Date Value 08/26/2023 6.7 10/21/2019 Requisitioning entry error Albumin (g/dL) Date Value 08/26/2023 4.5 10/21/2019 Requisitioning entry error Bilirubin, Total (mg/dL) Date Value 08/26/2023 0.8 10/21/2019 Requisitioning entry error Alkaline Phosphatase (U/L) (more content not included)... Normal [facility] Ferritin SerPl-ncon 2022 Ferritin [Mass/Vol] 50.2 ng/mL Normal 30.3-565.7 [facility] Comment on above: Order Comment: Speci men Type: BLOOD SPECIMENOrdering Facility: [facility] Address: [address] [place] [address] Performed By: #### 5 0190-8, 2276-4 ####[facility] LABCLIA [id number] [place] [address] [place] Iron and Iron binding capaci ty panelon 09-29-2023 Iron [Mass/Vol] 54 ug/dL Normal 41-186 [facility] Comment on above: Order Comment: Speci men Type: BLOOD SPECIMENOrdering Facility: [facility] Address: [address] [place] [address] Performed By: #### 5 0190-8, 6-4 ####[facility] LABCLIA [id number] [place] [id number] [place] Iron binding capacity [Mass/Vol] 368 ug/dL Normal 232-386 [facility] Comment on above: Order Comment: Speci men Type: BLOOD SPECIMENOrdering Facility: [facility] Address: [address] [place] [address] Performed By: #### 5 0190-8, 2275-4 ####[facility] LABIA [id number] [place] [address] [place] Iron/TIBC [Molar ratio] 14.7 % Low 15.0-57.0 [facility] Comment on above: Order Comment: Speci men Type: BLOOD SPECIMENOrdering Facility: [facility] Address: [address] [place] [address] Performed By: #### 5 0190-8, 2275-4 ####[facility] LABIA [id number] [place] [address] [place] Culture, Throaton 09-26-2023 Culture, Throat ORDER#: [id number] ORDERED BY: BEATRIZ ROPER SOURCE: Throat Throat COLLECTED: 09/26/23 11:51 ANTIBIOTICS AT [facility].: RECEIVED : 09/27/23 10:01 Culture, Throat FINAL 09/30/23 08:29 Cult,Throat: Oral yuki, negative for Group A Strep and other beta Cult,Throat: hemolytic streptococci Performed at [address] [address] ([phone] Normal [facility] Comment on above: Performed By: #### C XTHR #### [facility] [address] [place] [address] CNPIlene 09-25-2023 CNPN Telephone (HEMASA) EBEN ARENAS ([id number]) 1960 M Date Time Provider Department 09/25/23 OLAF PANDYA During your visit today, we recorded the following information about you: Olaf Pandya RN 09/25/2023 9:26 AM Signed Pt scheduled for lab/MM 10/26/23. He reports his finger stick lab resulting 18.4 and 18.7. he is requesting sooner lab/appt/ phlebotomy if indicated. Jovan: Ok to move appt up? LIZBETH Kay Mindy M, PA-C 09/25/2023 3:32 PM Signed You can move him up to next week with me if you want ELIAS Mariee Inna M 09/28/2023 8:34 AM Signed Spoke with Brain. He has been rescheduled to Thursday09-29-23. Allergies As of Date: 09/25/2023 Noted Allergy Reaction LORAZEPAM 04/07/2013 14 - Other: See Comments Comments: Ceres like he will pass out Date Reviewed: 09/25/2023 Reviewed by: Margarita Taylor PA-C - Fully Assessed Reason for Visit: Appointment [186] Prescriptions as of 09/28/2023 - semaglutide (OZEMPIC SUBCUTANEOUS) Inject subcutaneously. - amoxicillin-clavulan ic acid (AUGMENTIN) 875-125 mg per tablet Take 1 tablet by mouth twice daily. - meloxicam (MOBIC) 15 mg tablet TAKE 1 TABLET BY MOUTH EVERY DAY FOR 30 DAYS - niacin (NIACIN) 500 mg tablet Take 500 mg by mouth daily with breakfast. - baclofen (LIORESAL) 10 mg tablet Take 10 mg by mouth as needed. - sildenafil (VIAGRA) 50 mg tablet TAKE 1 TABLET BY MOUTH NEEDED DAILY - lisinopril-hydroCHLO ROthiazide (PRINZIDE,ZESTORETIC ) 20-12.5 mg per tablet - IBUPROFEN ORAL Take by mouth. - aspirin 325 mg tablet Take 325 mg by mouth once daily. Problem List As Of Date 09/25/2023 Noted Resolved S/P right knee arthroscopy [Z98.890] 09/12/2016 Primary osteoarthritis of right knee [M17.11] 09/12/2016 S/P right knee yen tibial osteotomy and arthr*10/08/2016 Numbness of left foot [R20.0] 02/16/2017 Secondary polycythemia [D75.1] 07/18/2019 Encounter Status:Closed by INNA ROSS on 09/28/23 Normal [facility] XR Chest 2 Viewson 3 XR Chest 2 Views Exam Date/Time: 09/09/2023 14:45 EST Reason for Exam: M1.011 Report IMPRESSION: NO RADIOGRAPHIC EVIDENCE OF ACTIVE DISEASE IN THE CHEST. CLINICAL INFORMATION: M1.011 COMPARISON: JULY 18, 2022 FINDINGS: Two views of the chest were obtained. Heart and mediastinum appear normal. The lungs appear clear. Visualized bony thorax and remainder of the chest appears unremarkable. Ordering Provider: Anupam Quesada FINAL REPORT Dictated: 09/11/2023 9:28 am Zohaib Curran MD Signed (Electronic Signature): 09/11/2023 9:28 am Signed by: Zohaib Curran MD Transcribed by: KURT Technologist: SALINA Technical Comments Radiation Dose: Ka,r in mGy = na DAP = na Normal [facility] Auto Diffon 09-09-2023 Basophils/100 WBC (Bld) 0.6 % Normal 0.0-2.0 F [facility] Comment on above: Order Comment: Order Added by Discern Expert. Performed By: #### 2 566948, [id number], [id number], [id number] ####[facility] [address] [place] [address] Basophils/Leukocytes Auto (Bld) [Pure # fraction] 0.0 E9/L Normal 0.0-0.2 [facility] Comment on above: Order Comment: Order Added by Khanh Expert. Performed By: #### 2 689700, [id number], 0782624, 8512976 ####[facility] [address] [place] [address] Eosinophils/100 WBC (Bld) 3.0 % Normal 0.0-8.0 [facility] Comment on above: Order Comment: Order Added by Discern Expert. Performed By: #### 2 282412, [id number], 7866847, 2618242 ####[address] [address] Eosinophils/Leukocytes Auto (Bld) [Pure # fraction] 0.2 E9/L Normal 0.0-0.5 [facility] Comment on above: Order Comment: Order Added by Discern Expert. Performed By: #### 2 455421, 15596516, 8063172, 8955698 ####[address] [address] Lymphocytes/100 WBC (Bld) 21.2 % Normal 14.0-50.0 [facility] Comment on above: Order Comment: Order Added by Khanh Expert. Performed By: #### 2 216757, [id number], 8555667, 1183653 ####[address] [address] Lymphocytes/Leukocytes Auto (Bld) [Pure # fraction] 1.5 E9/L Normal 1.0-4.0 [facility] Comment on above: Order Comment: Order Added by Khanh Expert. Performed By: #### 2 254183, [id number], 1254540, 8664069 ####[address] [address] Monocytes/100 WBC (Bld) 13.2 % Normal 4.0-14.0 [facility] Comment on above: Order Comment: Order Added by Discern Expert. Performed By: #### 2 700554, 46785293, 4167373, 3462155 ####[address] [address] Monocytes/Leukocytes Auto (Bld) [Pure # fraction] 1.0 E9/L Normal 0.2-1.0 [facility] Comment on above: Order Comment: Order Added by Khanh Expert. Performed By: #### 2 505831, 31857475, 1216420, 5288420 ####[facility] [address] [place] [address] Neutrophils/100 WBC (Bld) 62.0 % Normal 36.0-75.0 [facility] Comment on above: Order Comment: Order Added by Discern Expert. Performed By: #### 2 006129, 34059433, 1667689, 5691394 ####[facility] [address] [place] [address] Neutrophils/Leukocytes Auto (Bld) [Pure # fraction] 4.5 E9/L Normal 2.0-7.5 [facility] Comment on above: Order Comment: Order Added by Discern Expert. Performed By: #### 2 548832, 25041356, 2573114, 1941928 ####[facility] [address] [place] [address] BMPon 09-09-2023 Anion gap [Moles/Vol] 17 mmol/L High 6-16 [facility] Comment on above: Performed By: #### 2 699126, 18283040, 7493929, 1851187 ####[facility] [address] [place] [address] Calcium [Mass/Vol] 8.9 mg/dL Normal 8.9-11.1 [facility] Comment on above: Performed By: #### 2 651011, 88655969, 2542602, 9378550 ####[facility] [address] [place] [address] Chloride [Moles/Vol] 104 mmol/L Normal 101-111 [facility] Comment on above: Performed By: #### 2 980201, 54546120, 7211308, 3854008 ####[facility] [address] [place] [address] CO2 [Moles/Vol] 22 mmol/L Normal 21-31 [facility] Comment on above: Performed By: #### 2 490632, 49881493, 7274488, 8110755 ####[facility] [address] [place] [address] Creatinine [Mass/Vol] 1.1 mg/dL Normal 0.5-1.3 [facility] Comment on above: Performed By: #### 2 325501, 92626920, 3969295, 8096771 ####[facility] [address] [place] [address] Glucose [Mass/Vol] 85 mg/dL Normal 55-199 [facility] Comment on above: Result Comment: If t his glucose result represents a fasting glucose, interpretation should refer to the following reference range: 55-99 mg/dL Performed By: #### 2 906681, 59669547, 2339150, 7237807 ####[facility] [address] [place] [address] Potassium [Moles/Vol] 3.4 mmol/L Low 3.5-5.3 [facility] Comment on above: Performed By: #### 2 663841, 10864018, 9893704, 4706084 ####[facility] [address] [place] [address] Sodium [Moles/Vol] 140 mmol/L Normal 135-145 [facility] Comment on above: Performed By: #### 2 [id number], [id number], 5623784, [id number] ####[facility] [address] [place] [address] Urea nitrogen [Mass/Vol] 12 mg/dL Normal 5-21 [facility] Comment on above: Performed By: #### 2 034596, [id number], 7466096, 2330480 ####[facility] [address] [place] [address] Urea nitrogen/Creatinine [Mass ratio] 11 No Units Normal 10-20 [facility] Comment on above: Performed By: #### 2 011419, [id number], 8170689, 0783211 ####[facility] [address] [place] [address] CBC w/ Auto Diffon 3 Erythrocyte distribution width (RBC) [Ratio] 14.4 % High 10.9-14.2 [facility] Comment on above: Performed By: #### 2 845377, 81637592, 3709267, 1177050 ####[place] [address]144457 Hematocrit (Bld) [Volume fraction] 54.1 % High 37.7-49.0 [facility] Comment on above: Performed By: #### 2 011872, 19155736, 9434611, 1130706 ####[place] [address]144457 Hemoglobin (Bld) [Mass/Vol] 17.9 g/dL High 13.5-17.5 [facility] Comment on above: Performed By: #### 2 550283, 14910813, 0495189, 6573187 ####[address] [address] MCH (RBC) [Entitic mass] 30.7 pg Normal 27.0-34.0 [facility] Comment on above: Performed By: #### 2 215671, 77872952, 8427613, 6046987 ####[place] [address]144457 MCHC (RBC) [Mass/Vol] 33.1 g/dL Normal 31.4-36.[address] [facility] Comment on above: Performed By: #### 2 584568, 49328731, 8678435, 8445192 ####[address] [address] MCV (RBC) [Entitic vol] 92.8 fL Normal 80.0-100.0 F [facility] Comment on above: Performed By: #### 2 387063, 06782356, 0029758, 0605748 ####[address] [address] Platelet mean volume (Bld) [Entitic vol] 10.6 fL Normal 6.4-10.8 [facility] Comment on above: Performed By: #### 2 497715, 26279470, 4159677, 6831412 ####[facility] [address] [place] [address] Platelets (Bld) [#/Vol] 152.0 E9/L Normal 150.0-500.0 [facility] Comment on above: Performed By: #### 2 705265, 16654849, 2494774, 3994051 ####[facility] [address] [place] [address] RBC (Bld) [#/Vol] 5.8 E12/L Normal 4.3-5.9 [facility] Comment on above: Performed By: #### 2 627473, 32400834, 3079750, 6907959 ####[facility] [address] [place] [address] WBC corrected for nucl RBC Auto (Bld) [#/Vol] 7.2 E9/L Normal 4.0-11.0 [facility] Comment on above: Performed By: #### 2 260101, 29241841, 6782455, 3238260 ####[facility] [address] [place] [address] CHEMISTRYOrdered By: SYSTEM SYSTEM on 09-09-2023 Anion gap [Moles/Vol] 17 mmol/L High 6 - 16 mEq/L [place] [facility] [place]isol Calcium [Mass/Vol] 8.9 mg/dL Normal 8.9 - 11. 1 mg/dL [facility] [place] Remisol Chloride [Moles/Vol] 104 mmol/L Normal 101 - 1 11 mmol/L [facility] [place] [place] Remisol CO2 [Moles/Vol] 22 mmol/L Normal 21 - 31 mmol/L [facility] Remisol Creatinine [Mass/Vol] 1.1 mg/dL Normal 0.5 - 1.3 mg/dL [facility] [place] [place] Remisol GFR/1.73 sq M.predicted among non-blacks MDRD (S/P/Bld) [Vol rate/Area] 75 mL/min/1.73 m2 Normal >=59mL/min/1.7 3 m2 [facility] [place] Chem S Comment on above: Interpretive Data: C hronic kidney disease could be indicated at eGFR's of less than 60 mL/min/1.73m2. Kidney failure is indicated at less than 15 mL/min/1.73m2. Glucose [Mass/Vol] 85 mg/dL Normal 55 - 199 mg/dL [facility] Comment on above: Interpretive Data: I f this glucose result represents a fasting glucose, interpretation should refer to the following reference range: 55-99 mg/dL Potassium [Moles/Vol] 3.4 mmol/L Low 3.5 - 5.3 mmol/L [facility] Sodium [Moles/Vol] 140 mmol/L Normal 135 - 145 mmol/L [facility] Urea nitrogen [Mass/Vol] 12 mg/dL Normal 5 - 21 mg/dL [facility] Urea nitrogen/Creatinine [Mass ratio] 11 mg/mg Normal 10 - 20 [facility] Consent for Treatmenton 08-13 Consent for Treatment [id number] #1.00TIFF Normal [facility] HEMATOLOGYOrdered By: SYSTEM SYSTEM on 09-09-2023 Basophils/100 WBC (Bld) 0.6 % Normal 0.0 - 2.0 % [facility]eAutoSS Basophils/Leukocytes Auto (Bld) [Pure # fraction] 0.0 E9/L Normal 0.0 - 0.2 E9/L [facility] Eosinophils/100 WBC (Bld) 3.0 % Normal 0.0 - 8.0 % [facility]eAutoSS Eosinophils/Leukocytes Auto (Bld) [Pure # fraction] 0.2 E9/L Normal 0.0 - 0.5 E9/L [facility] Lymphocytes/100 WBC (Bld) 21.2 % Normal 14.0 - 50.0 % [facility]eAutoSS Lymphocytes/Leukocytes Auto (Bld) [Pure # fraction] 1.5 E9/L Normal 1.0 - 4.0 E9/L [facility]eAutoSS Monocytes/100 WBC (Bld) 13.2 % Normal 4.0 - 14.0 % [facility]eAutoSS Monocytes/Leukocytes Auto (Bld) [Pure # fraction] 1.0 E9/L Normal 0.2 - 1.0 E9/L [facility] Neutrophils/100 WBC (Bld) 62.0 % Normal 36.0 - 75.0 % [facility]eAutoSS Neutrophils/Leukocytes Auto (Bld) [Pure # fraction] 4.5 E9/L Normal 2.0 - 7.5 E9/L [facility] [place] HemeAutoSS HEMATOLOGYOrdered By: Yadira Marina on 09-09-2023 Erythrocyte distribution width (RBC) [Ratio] 14.4 % High 10.9 - 14.2 % [facility] Hematocrit (Bld) [Volume fraction] 54.1 % High 37.7 - 49.0 % [facility] Hemoglobin (Bld) [Mass/Vol] 17.9 g/dL High 13.5 - 17.5 gm/dL [facility] MCH (RBC) [Entitic mass] 30.7 pg Normal 27.0 - 34.0 pg [facility] MCHC (RBC) [Mass/Vol] 33.1 g/dL Normal 31.4 - 36.0 gm/dL [facility] HemeAutoSS MCV (RBC) [Entitic vol] 92.8 fL Normal 80.0 - 100.0 fL [facility]eAuto[facility] Platelet mean volume (Bld) [Entitic vol] 10.6 fL Normal 6.4 - 10.8 fL [facility] [place] [place] HemeAutoSS Platelets (Bld) [#/Vol] 152.0 E9/L Normal 150. 0 - 500.0 E9/L [facility] [place] HemeAutoSS RBC (Bld) [#/Vol] 5.8 E12/L Normal 4.3 - 5.9 E12/L [facility] HemeAutoSS WBC corrected for nucl RBC Auto (Bld) [#/Vol] 7.2 E9/L Normal 4.0 - 11.0 E9/L [facility] HemeAutoSS Physician Orderon 09-09-2023 Physician Order [id number] 1#1.00TIFF Normal [facility] eGFRon 09-09-2023 GFR/1.73 sq M.predicted among non-blacks MDRD (S/P/Bld) [Vol rate/Area] 75 mL/min/1.73 m2 Normal >=59 [facility] Comment on above: Order Comment: Order added by Discern Expert. Result Comment: Rn Night fernando kidney disease could be indicated at eGFR's of less than 60 mL/min/1.73m2. Kidney failure is indicated at less than 15 mL/min/1.73m2. Performed By: #### 2 578529, 72590321, 0435959, 7135175 ####[facility] [address] [place] [address] MRI Shoulder w/ + w/o Contra st Amaro 09-03-2023 MRI Shoulder w/ + w/o Contrast Right Exam Date/Time: 09/01/2023 18:26 EST Reason for Exam: [id number] Report IMPRESSION: ADVANCED GLENOHUMERAL OSTEOARTHRITIS. FULL-THICKNESS TEAR OF SUPRASPINATUS TENDON. FULL-THICKNESS TEAR OF THE DISTAL ANTERIOR HALF OF INFRASPINATUS TENDON. MILD ATROPHY AND FATTY INFILTRATION OF SUPRASPINATUS AND INFRASPINATUS MUSCLES. HIGH-GRADE PARTIAL-THICKNESS ARTICULAR SURFACE TEAR OF DISTAL SUPERIOR AND MID FIBERS OF SUBSCAPULARIS TENDON. FULL-THICKNESS TEAR OF THE LONG HEAD BICEPS TENDON. EXAM: MRI Shoulder w/ + w/o Contrast Right HISTORY: Shoulder pain and swelling. Shoulder lump. TECHNIQUE: Multiplanar multisequence MRI of the shoulder was performed without and with contrast. COMPARISON: None available. FINDINGS: Moderate degenerative changes of the acromioclavicular joint. Prominent fluid collection superior to the acromioclavicular joint measures up to approximately 2.4 cm and is most likely ischemic joint fluid or ganglion as there is only a thin rim enhancement and no solid enhancing component. The acromion is curved. Coracoclavicular ligament intact. Small amount of subacromial/subdelto id bursal fluid. Full-thickness tear of distal supraspinatus tendon at the footprint with retraction of torn fibers up to approximately 4.5 cm from the footprint. Full-thickness tear of the distal anterior half of infraspinatus tendon continuous with a low-grade intrasubstance tear along the myotendinous junction. Multiple loose bodies are present along the undersurface of infraspinatus measuring up to 2.1 cm. Low-grade full-thickness articular surface tear of distal superior and mid fibers of subscapularis tendon. Teres minor tendon is intact. Mild atrophy and fatty infiltration of supraspinatus and infraspinatus muscles. Full-thickness tear of the intra-articular long head biceps tendon. Report Diffuse labral degeneration and tearing. Full-thickness cartilage loss of essentially the entire humeral head and glenoid with medial humeral head marginal osteophyte formation and remodeling of the glenoid. Small glenohumeral joint effusion with tiny loose bodies within the axillary recess and multiple loose bodies within the subscapularis recess measuring up to 2.7 cm. Ordering Provider: Anupam Quesada FINAL REPORT Dictated: 09/03/2023 3:17 pm Garth Arango DO Signed (Electronic Signature): 09/03/2023 3:17 pm Signed by: Garth Arango DO Transcribed by: KURT Technologist: ROSALINO Technical Comments MultiHance Contrast amount in ml's: 20 Normal [facility] CHEMISTRYOrdered By: SYSTEM SYSTEM on 09-01-2023 Creatinine [Mass/Vol] 0.8 mg/dL Normal 0.5 - 1.3 mg/dL [facility] Remisol GFR/1.73 sq M.predicted among non-blacks MDRD (S/P/Bld) [Vol rate/Area] 99 mL/min/1.73 m2 Normal >=59mL/min/1.7 3 m2 [facility] Chem S Comment on above: Interpretive Data: C hronic kidney disease could be indicated at eGFR's of less than 60 mL/min/1.73m2. Kidney failure is indicated at less than 15 mL/min/1.73m2. Consent for Treatmenton 08-13 Consent for Treatment [id number] #1.00TIFF Normal [facility] Creatinineon 09-01-2023 Creatinine [Mass/Vol] 0.8 mg/dL Normal 0.5-1.3 [facility] Comment on above: Performed By: #### 1 [id number], [id number] ####[facility] [address] [place] [address] RAD - MRI Screening Formon 1 11-01-2022 RAD - MRI Screening Form [id number] 72#1.00TIFF Normal [facility] eGFRon 09-01-2023 GFR/1.73 sq M.predicted among non-blacks MDRD (S/P/Bld) [Vol rate/Area] 99 mL/min/1.73 m2 Normal >=59 [facility] Comment on above: Order Comment: Order added by Discern Expert. Result Comment: Rn Night fernando kidney disease could be indicated at eGFR's of less than 60 mL/min/1.73m2. Kidney failure is indicated at less than 15 mL/min/1.73m2. Performed By: #### 1 [id number], [id number] ####[facility] [address] [place] [address] Physician Orderon 08-31-2023 Physician Order [id number] #1.00TIFF Normal [facility] CBC W Auto Differential pane l (Bld)on 08-26-2023 Basophils (Bld) [#/Vol] 0.06 10*3/uL Normal <0.11 [facility] Comment on above: Order Comment: Speci men Type: BLOOD SPECIMENOrdering Facility: [facility] Address: [address] [place] [address] Performed By: #### 5 7021-8 ####[facility] LABCLIA [id number] [place] [address] Basophils/100 WBC (Bld) 0.8 % Normal C [facility] Comment on above: Order Comment: Speci men Type: BLOOD SPECIMENOrdering Facility: [facility] Address: [address] [place] [address] Performed By: #### 5 7021-8 ####[facility] LABCLIA [id number] [place] [address] Differential cell count method Nom (Bld) Auto Normal [facility] Comment on above: Order Comment: Speci men Type: BLOOD SPECIMENOrdering Facility: [facility] Address: [address] [place] [address] Performed By: #### 5 7021-8 ####[facility] LABCLIA [id number] [place] [address] Eosinophils (Bld) [#/Vol] 0.21 10*3/uL Normal <0.46 [facility] Comment on above: Order Comment: Speci men Type: BLOOD SPECIMENOrdering Facility: [facility] Address: [address] [place] [address] Performed By: #### 5 7021-8 ####[facility] LABCLIA [id number] [place] [address] Eosinophils/100 WBC (Bld) 2.9 % Normal [facility] Comment on above: Order Comment: Speci men Type: BLOOD SPECIMENOrdering Facility: [facility] Address: [address] [place] [address] Performed By: #### 5 7021-8 ####[facility] LABCLIA [id number] [place] [address] Erythrocyte distribution width (RBC) [Ratio] 14.5 % Normal 11.5-15.0 [facility] Comment on above: Order Comment: Speci men Type: BLOOD SPECIMENOrdering Facility: [facility] Address: [address] [place] [address] Performed By: #### 5 7021-8 ####[facility] LABCLIA [id number] [place] [address] Hematocrit (Bld) [Volume fraction] 57.0 % High 39.0-51.0 [facility] Comment on above: Order Comment: Speci men Type: BLOOD SPECIMENOrdering Facility: [facility] Address: [address] [place] [address] Performed By: #### 5 7021-8 ####[facility] LABCLIA [id number] [place] [address] Hemoglobin (Bld) [Mass/Vol] 19.0 g/dL High 13.0-17.0 [facility] Comment on above: Order Comment: Speci men Type: BLOOD SPECIMENOrdering Facility: [facility] Address: [address] [place] [address] Performed By: #### 5 7021-8 ####[facility] LABCLIA [id number] [place] [address] Immature granulocytes (Bld) [#/Vol] 10*3/uL Normal <0.10 [facility] Comment on above: Order Comment: Speci men Type: BLOOD SPECIMENOrdering Facility: [facility] Address: [address] [place] [address] Performed By: #### 5 7021-8 ####[facility] LABCLIA [id number] [place] [address] Immature granulocytes/100 WBC (Bld) 0.3 % Normal [facility] Comment on above: Order Comment: Speci men Type: BLOOD SPECIMENOrdering Facility: [facility] Address: [address] [place] [address] Performed By: #### 5 7021-8 ####[facility] LABCLIA [id number] [place] [address] Lymphocytes (Bld) [#/Vol] 1.38 10*3/uL Normal 1.00-4.00 [facility] Comment on above: Order Comment: Speci men Type: BLOOD SPECIMENOrdering Facility: [facility] Address: [address] [place] [address] Performed By: #### 5 7021-8 ####[facility] LABCLIA [id number] [place] [address] Lymphocytes/100 WBC (Bld) 18.9 % Normal [facility] Comment on above: Order Comment: Speci men Type: BLOOD SPECIMENOrdering Facility: [facility] Address: [address] [place] [address] Performed By: #### 5 7021-8 ####[facility] LABCLIA [id number] [place] [address] MCH (RBC) [Entitic mass] 30.9 pg Normal 26.0-34.0 [facility] Comment on above: Order Comment: Speci men Type: BLOOD SPECIMENOrdering Facility: [facility] Address: [facility] [place] [address] Performed By: #### 5 7021-8 ####[facility] LABCLIA [id number] [place] [address] MCHC (RBC) [Mass/Vol] 33.3 g/dL Normal 30.5-36.0 [facility] Comment on above: Order Comment: Speci men Type: BLOOD SPECIMENOrdering Facility: [facility] Address: [address] [place] [address] Performed By: #### 5 7021-8 ####[facility] LABCLIA [id number] [place] [address] MCV (RBC) [Entitic vol] 92.7 fL Normal 80.0-100.0 C [facility] Comment on above: Order Comment: Speci men Type: BLOOD SPECIMENOrdering Facility: [facility] Address: [address] [place] [address] Performed By: #### 5 7021-8 ####[facility] LABCLIA [id number] [place] [address] Monocytes (Bld) [#/Vol] 0.87 10*3/uL High <0.87 [facility] Comment on above: Order Comment: Speci men Type: BLOOD SPECIMENOrdering Facility: [facility] Address: [address] [place] [address] Performed By: #### 5 7021-8 ####[facility] LABCLIA [id number] [place] [address] Monocytes/100 WBC (Bld) 11.9 % Normal C [facility] Comment on above: Order Comment: Speci men Type: BLOOD SPECIMENOrdering Facility: [facility] Address: [address] [place] [address] Performed By: #### 5 7021-8 ####[facility] LABCLIA [id number] [place] [address] Neutrophils (Bld) [#/Vol] 4.78 10*3/uL Normal 1.45-7.50 [facility] Comment on above: Order Comment: Speci men Type: BLOOD SPECIMENOrdering Facility: [facility] Address: [address] [place] [address] Performed By: #### 5 7021-8 ####[facility] LABCLIA [id number] [place] [address] Neutrophils/100 WBC (Bld) 65.2 % Normal [facility] Comment on above: Order Comment: Speci men Type: BLOOD SPECIMENOrdering Facility: [facility] Address: [address] [place] [address] Performed By: #### 5 7021-8 ####[facility] LABCLIA [id number] [place] [address] Nucleated RBC (Bld) [#/Vol] 10*3/uL Normal <0.01 [facility] Comment on above: Order Comment: Speci men Type: BLOOD SPECIMENOrdering Facility: [facility] Address: [address] [place] [address] Performed By: #### 5 7021-8 ####[facility] LABCLIA [id number] [place] [address] Nucleated RBC/100 WBC (Bld) [Ratio] 0.0 /100 WBC Normal [facility] Comment on above: Order Comment: Speci men Type: BLOOD SPECIMENOrdering Facility: [facility] Address: [address] [place] [address] Performed By: #### 5 7021-8 ####[facility] LABCLIA [id number] [place] [address] Platelet mean volume (Bld) [Entitic vol] 12.2 fL Normal 9.0-12.7 [facility] Comment on above: Order Comment: Speci men Type: BLOOD SPECIMENOrdering Facility: [facility] Address: [address] [place] [address] Performed By: #### 5 7021-8 ####[facility] LABIA [id number] [place] [address] Platelets (Bld) [#/Vol] 153 10*3/uL Normal 150-400 [facility] Comment on above: Order Comment: Speci men Type: BLOOD SPECIMENOrdering Facility: [facility] Address: [address] [place] [address] Performed By: #### 5 7021-8 ####[facility] LABIA [id number] [place] [address] RBC (Bld) [#/Vol] 6.15 10*6/uL High 4.20-6.00 [facility] Comment on above: Order Comment: Speci men Type: BLOOD SPECIMENOrdering Facility: [facility] Address: [address] [place] [address] Performed By: #### 5 7021-8 ####[facility] [id number] [place] [address] WBC (Bld) [#/Vol] 7.32 10*3/uL Normal 3.70-11.00 [facility] Comment on above: Order Comment: Speci men Type: BLOOD SPECIMENOrdering Facility: [facility] Address: [address] [place] [address] Performed By: #### 5 7021-8 ####[facility] [id number] [place] [address] CNOVSPon 08-26-2023 [facility] Visit (SP) Office ([place]) EBEN ARENAS ([id number]) 1960 M Date Time Provider Department 08/26/23 3:15 PM ANSELMO MCPHERSON During your visit today, we recorded the following information about you: Temperature Pulse Respiration Blood pressure 97.6 degrees 87/minute 18/minute 135/76 Weight Height 129.3 kg 1.772 m Anselmo Mcpherson MD 08/26/2023 3:39 PM Signed PATIENT NAME: Eben Arenas CLINIC NO.: [id number] ATTENDING PHYSICIAN: Anselmo Mcpherson MD DATE OF SERVICE: December 17, 2022 Some of the elements of this note have been copied from my previous progress note dated 08/27/2022. All the information has been reviewed carefully. Dear Dr. APONTE here is an update on a follow up visit on male Eben Arenas at the clinic December 17, 2022 Diagnosis: 1. 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 HPI: Eben Arenas is a 62 year old year old male here for follow up. Feels ok and labs elevated at home PAST MEDICAL HISTORY Diagnosis Date Former smoker HLD (hyperlipidemia) CHITIMACHA (hard of hearing) HTN (hypertension) Long-term use of aspirin therapy OA (osteoarthritis) of knee Polycythemia S/P right knee arthroscopy TIA (transient ischemic attack) Social History Tobacco Use Smoking status: Former Passive exposure: Past Smokeless tobacco: Former Types: Chew Quit date: 09/12/2016 Tobacco comments: QUIT 15 YEARS AGO Vaping Use Vaping Use: Never used Substance Use Topics Alcohol use: Yes Comment: rare Drug use: No FAMILY HISTORY Problem Relation Age of Onset Lipids Mother Hypertension Mother Hypertension Father Lipids Father Past medical, social and family history reviewed without any changes. REVIEW OF SYSTEMS GENERAL: No weight loss, malaise or fevers. No night sweats. HEENT: Negative for headaches, No changes in hearing or vision, no nose bleeds or other nasal problems. RESPIRATORY: Negative for cough, wheezing and shortness of breath CARDIOVASCULAR: Negative for chest pain, leg swelling and palpitations GI: Negative for abdominal discomfort, blood in stools or black stools and change in bowel habits : Negative for dysuria, frequency and incontinence MUSCULOSKELETAL: Negative for joint pain or swelling, back pain, and muscle pain. SKIN: Negative for lesions, rash, and itching. HEMATOLOGY/LYMPHOLOG Y Negative for prolonged bleeding, bruising easily, and swollen nodes. NEURO: Negative for numbness or tingling of hands/feet. No weakness. PHYSICAL EXAMINATION: BP 135/76 Pulse 87 Temp (Src) 97.6 (Temporal) Resp 18 Ht 5' 9.764 (1.77m) Wt 285 lb (129.3kg) SpO2 97% BMI 41.17 kg/(m2). Wt 130.2 kg (287 lb) BMI 41.46 kg/m2 Last 3 Encounter Wt Readings: Date: Wt: 08/15/2019 130.2 kg (287 lb) 07/18/2019 127.4 kg (280 lb 12.8 oz) 09/19/2016 117.9 kg (260 lb) General appearance:ECOG PERFORMANCE STATUS: 0- Fully active, able to carry on all pre-disease performance w/o restriction. Patient in NAD. Skin: Skin color, texture, turgor normal. No rashes or lesions. Eyes: Anicteric sclera. Pupils are equally round and reactive to light. Extraocular movements are intact. Lymph Nodes: No cervical, supraclavicular, axillary or inguinal adenopathy. Oropharynx: Lips, mucosa, and tongue normal. Back: No pain to percussion. Negative SLR test Lungs clear to auscultation, No wheezing or rhonchi Heart: RRR without murmur, gallop, or rubs. Abdomen soft, non-tender. No masses, organomegaly Extremities: No deformities. No edema Neuro: Gait and speech normal. Reflexes normal and symmetric. Muscular strength intact. Sensation grossly intact. Rectal: Deferred : Deferred LABS: Glucose (mg/dL) Date Value 08/26/2023 91 10/21/2019 Requisitioning entry error Potassium (mmol/L) Date Value 08/26/2023 3.7 10/21/2019 Requisitioning entry error Sodium (mmol/L) Date Value 08/26/2023 140 10/21/2019 Requisitioning entry error Chloride (mmol/L) Date Value 08/26/2023 102 10/21/2019 Requisitioning entry error CO2 (mmol/L) Date Value 08/26/2023 29 10/21/2019 Requisitioning entry error Creatinine (mg/dL) Date Value 08/26/2023 1.20 10/21/2019 Requisitioning entry error BUN (mg/dL) Date Value 08/26/2023 9 10/21/2019 Requisitioning entry error Anion Gap (mmol/L) Date Value 08/26/2023 9 10/21/2019 Requisitioning entry error Calcium (mg/dL) Date Value 10/21/2019 Requisitioning entry error Calcium, Total (mg/dL) Date Value 08/26/2023 9.4 Protein, Total (g/dL) Date Value 08/26/2023 6.7 10/21/2019 Requisitioning entry error Albumin (g/dL) Date Value 08/26/2023 4.5 10/21/2019 Requisitioning entry error Bilirubin, Total (mg/dL) Date Value 08/26/2023 0.8 10/21/2019 R (more content not included)... Normal [facility] Comprehensive metabolic 2000 panelon 08-26-2023 Albumin [Mass/Vol] 4.5 g/dL Normal 3.9-4.9 [facility] Comment on above: Order Comment: Speci men Type: BLOOD SPECIMENOrdering Facility: [facility] Address: [address] [place] [address] Performed By: #### 2 4323-8 ####[facility] LABCLIA [id number] [place] [address] ALP [Catalytic activity/Vol] 82 U/L Normal 38-113 [facility] Comment on above: Order Comment: Speci men Type: BLOOD SPECIMENOrdering Facility: [facility] Address: [address] [place] [address] Performed By: #### 2 4323-8 ####[facility] LABCLIA [id number] [place] [address] ALT [Catalytic activity/Vol] 49 U/L Normal 10-54 [facility] Comment on above: Order Comment: Speci men Type: BLOOD SPECIMENOrdering Facility: [facility] Address: [address] [place] [address] Performed By: #### 2 4323-8 ####[facility] LABCLIA [id number] [place] [address] Anion gap [Moles/Vol] 9 mmol/L Normal 9-18 [facility] Comment on above: Order Comment: Speci men Type: BLOOD SPECIMENOrdering Facility: [facility] Address: [address] [place] [address] Performed By: #### 2 4323-8 ####[facility] LABCLIA [id number] [place] [address] AST [Catalytic activity/Vol] 37 U/L Normal 14-40 [facility] Comment on above: Order Comment: Speci men Type: BLOOD SPECIMENOrdering Facility: [facility] Address: [address] [place] [address] Performed By: #### 2 4323-8 ####[facility] LABCLIA [id number] [place] [address] Bilirubin [Mass/Vol] 0.8 mg/dL Normal 0.2-1.3 [facility] Comment on above: Order Comment: Speci men Type: BLOOD SPECIMENOrdering Facility: [facility] Address: [address] [place] [address] Performed By: #### 2 4323-8 ####[facility] LABCLIA [id number] [place] [address] Calcium [Mass/Vol] 9.4 mg/dL Normal 8.5-10.2 [facility] Comment on above: Order Comment: Speci men Type: BLOOD SPECIMENOrdering Facility: [facility] Address: [address] [place] [address] Performed By: #### 2 4323-8 ####[facility] LABCLIA [id number] [place] [address] Chloride [Moles/Vol] 102 mmol/L Normal 97-105 [facility] Comment on above: Order Comment: Speci men Type: BLOOD SPECIMENOrdering Facility: [facility] Address: [address] [place] [address] Performed By: #### 2 4323-8 ####[facility] LABCLIA [id number] [place] [address] CO2 [Moles/Vol] 29 mmol/L Normal 22-30 [facility] Comment on above: Order Comment: Speci men Type: BLOOD SPECIMENOrdering Facility: [facility] Address: [address] [place] [address] Performed By: #### 2 4323-8 ####[facility] LABCLIA [id number] [place] [address] Creatinine [Mass/Vol] 1.20 mg/dL Normal 0.73-1.22 [facility] Comment on above: Order Comment: Speci men Type: BLOOD SPECIMENOrdering Facility: [facility] Address: [address] [place] [address] Performed By: #### 2 4323-8 ####[facility] LABCLIA [id number] [place] [address] Creatinine and Glomerular filtration rate.predicted panel (S/P/Bld) 68 mL/min/1.73m??? Normal >=60 [facility] Comment on above: Order Comment: Speci men Type: BLOOD SPECIMENOrdering Facility: [facility] Address: [address] [place] [address] Result Comment: Nyla mated Glomerular Filtration Rate (eGFR) is calculated using the 2020 CKD-EPI creatinine equation. This equation utilizes serum creatinine, sex, and age as parameters. The creatinine assay has traceable calibration to isotope dilution-mass spectrometry. Refer to KDIGO guidelines for clinical interpretation. In patients with unstable renal function, e.g. those with acute kidney injury, the eGFR may not accurately reflect actual GFR. Performed By: #### 2 4323-8 ####[facility] LABCLIA [id number] [place] [address] Glucose [Mass/Vol] 91 mg/dL Normal 74-99 [facility] Comment on above: Order Comment: Speci men Type: BLOOD SPECIMENOrdering Facility: [facility] Address: [address] [place] [id number] Result Comment: The [place] [employer] Association (ADA) provides guidance for cutoff values for fasting glucose and random glucose. The ADA defines fasting as no caloric intake for at least 8 hours. Fasting plasma glucose results between 100 to 125 mg/dL indicate increased risk for diabetes (prediabetes). Fasting plasma glucose results greater than or equal to 126 mg/dL meet the criteria for diagnosis of diabetes. In the absence of unequivocal hyperglycemia, results should be confirmed by repeat testing. In a patient with classic symptoms of hyperglycemia or hyperglycemic crisis, random plasma glucose results greater than or equal to 200 mg/dL meet the criteria for diagnosis of diabetes. Reference: Standards of Medical Care in Diabetes 2016, [place] [employer]. Diabetes Care. 2016.39(Suppl 1). Performed By: #### 2 4323-8 ####[facility] LABCLIA [id number] [place] [address] Potassium [Moles/Vol] 3.7 mmol/L Normal 3.7-5.1 [facility] Comment on above: Order Comment: Speci men Type: BLOOD SPECIMENOrdering Facility: [facility] Address: [address] [place] [address] Performed By: #### 2 4323-8 ####[facility] LABCLIA [id number] [place] [address] Protein [Mass/Vol] 6.7 g/dL Normal 6.3-8.0 [facility] Comment on above: Order Comment: Speci men Type: BLOOD SPECIMENOrdering Facility: [facility] Address: [address] [id number] Performed By: #### 2 4323-8 ####[facility] LABCLIA [id number] [place] [address] Sodium [Moles/Vol] 140 mmol/L Normal 136-144 [facility] Comment on above: Order Comment: Speci men Type: BLOOD SPECIMENOrdering Facility: [facility] Address: [address] [place] [address] Performed By: #### 2 4323-8 ####[facility] LABCLIA [id number] [place] [address] Urea nitrogen [Mass/Vol] 9 mg/dL Normal 9-24 [facility] Comment on above: Order Comment: Speci men Type: BLOOD SPECIMENOrdering Facility: [facility] Address: [address] [place] [address] Performed By: #### 2 4323-8 ####[facility] LABCLIA [id number] [place] [address] [facility] Ferritin [Mass/Vol] 57.7 ng/mL Normal 30.3-565.7 [facility] Comment on above: Order Comment: Speci men Type: BLOOD SPECIMENOrdering Facility: [facility] Address: [address] [place] [address] Performed By: #### 5 0190-8, 2275-4 ####[facility] LABCLIA [id number] [place] [address] [place] Iron and Iron binding capaci panel 08-26-2023 Iron [Mass/Vol] 86 ug/dL Normal 41-186 [facility] Comment on above: Order Comment: Speci men Type: BLOOD SPECIMENOrdering Facility: [facility] Address: [address] [place] [address] Performed By: #### 5 0190-8, 2275- ####[facility] LABCLIA [id number] [place] [address] [place] Iron binding capacity [Mass/Vol] 386 ug/dL Normal 232-386 [facility] Comment on above: Order Comment: Speci men Type: BLOOD SPECIMENOrdering Facility: [facility] Address: [address] [place] [address] Performed By: #### 5 0190-8, 2275- ####[facility] LABCLIA [id number] [place] [address] [place] Iron/TIBC [Molar ratio] 22.3 % Normal 15.0-57.0 [facility] Comment on above: Order Comment: Speci men Type: BLOOD SPECIMENOrdering Facility: [facility] Address: [address] [place] [address] Performed By: #### 5 0190-8, 2276-4 ####[facility] LABCLIA [id number] [address] [place] Physician Orderon 08-26-2023 Physician Order [id number] #1.00TIFF Normal [facility] CBC W Auto Differential pane l (Bld)on 07-10-2023 Basophils (Bld) [#/Vol] 0.06 10*3/uL Normal <0.11 [facility] Comment on above: Order Comment: Speci men Type: BLOOD SPECIMENOrdering Facility: [facility] Address: [address] [place] [address] Performed By: #### 5 7021-8 ####[facility] LABIA [id number] [place] [address] Basophils/100 WBC (Bld) 0.9 % Normal C [facility] Comment on above: Order Comment: Speci men Type: BLOOD SPECIMENOrdering Facility: [facility] Address: [address] [place] [address] Performed By: #### 5 7021-8 ####[facility] LABCLIA [id number] [place] [address] Differential cell count method Nom (Bld) Auto Normal [facility] Comment on above: Order Comment: Speci men Type: BLOOD SPECIMENOrdering Facility: [facility] Address: [address] [place] [address] Performed By: #### 5 7021-8 ####[facility] LABCLIA [id number] [place] [address] Eosinophils (Bld) [#/Vol] 0.29 10*3/uL Normal <0.46 [facility] Comment on above: Order Comment: Speci men Type: BLOOD SPECIMENOrdering Facility: [facility] Address: [address] [place] [address] Performed By: #### 5 7021-8 ####[facility] LABCLIA [id number] [place] [address] Eosinophils/100 WBC (Bld) 4.3 % Normal [facility] Comment on above: Order Comment: Speci men Type: BLOOD SPECIMENOrdering Facility: [facility] Address: [address] [place] [address] Performed By: #### 5 7021-8 ####[facility] LABCLIA [id number] [place] [address] Erythrocyte distribution width (RBC) [Ratio] 15.1 % High 11.5-15.0 [facility] Comment on above: Order Comment: Speci men Type: BLOOD SPECIMENOrdering Facility: [facility] Address: [address] [place] [address] Performed By: #### 5 7021-8 ####[facility] LABCLIA [id number] [place] [address] Hematocrit (Bld) [Volume fraction] 55.5 % High 39.0-51.0 [facility] Comment on above: Order Comment: Speci men Type: BLOOD SPECIMENOrdering Facility: [facility] Address: [address] [place] [address] Performed By: #### 5 7021-8 ####[facility] LABCLIA [id number] [place] [address] Hemoglobin (Bld) [Mass/Vol] 18.6 g/dL High 13.0-17.0 [facility] Comment on above: Order Comment: Speci men Type: BLOOD SPECIMENOrdering Facility: [facility] Address: [address] [place] [address] Performed By: #### 5 7021-8 ####[facility] LABCLIA [id number] [place] [address] Immature granulocytes (Bld) [#/Vol] 10*3/uL Normal <0.10 [facility] Comment on above: Order Comment: Speci men Type: BLOOD SPECIMENOrdering Facility: [facility] Address: [address] [place] [address] Performed By: #### 5 7021-8 ####[facility] LABCLIA [id number] [place] [address] Immature granulocytes/100 WBC (Bld) 0.3 % Normal [facility] Comment on above: Order Comment: Speci men Type: BLOOD SPECIMENOrdering Facility: [facility] Address: [address] [place] [address] Performed By: #### 5 7021-8 ####[facility] LABCLIA [id number] [place] [address] Lymphocytes (Bld) [#/Vol] 1.51 10*3/uL Normal 1.00-4.00 [facility] Comment on above: Order Comment: Speci men Type: BLOOD SPECIMENOrdering Facility: [facility] Address: [address] [place] [address] Performed By: #### 5 7021-8 ####[facility] LABCLIA [id number] [place] [address] Lymphocytes/100 WBC (Bld) 22.2 % Normal [facility] Comment on above: Order Comment: Speci men Type: BLOOD SPECIMENOrdering Facility: [facility] Address: [address] [place], [place] [address] Performed By: #### 5 7021-8 ####[facility] LABCLIA [id number] [place] [address] MCH (RBC) [Entitic mass] 31.2 pg Normal 26.0-34.0 [facility] Comment on above: Order Comment: Speci men Type: BLOOD SPECIMENOrdering Facility: [facility] Address: [address] [address] Performed By: #### 5 7021-8 ####[facility] LABCLIA [id number] [place] [address] MCHC (RBC) [Mass/Vol] 33.5 g/dL Normal 30.5-36.0 [facility] Comment on above: Order Comment: Speci men Type: BLOOD SPECIMENOrdering Facility: [facility] Address: [address] [place] [address] Performed By: #### 5 7021-8 ####[facility] LABCLIA [id number] [place] [address] MCV (RBC) [Entitic vol] 93.0 fL Normal 80.0-100.0 C [facility] Comment on above: Order Comment: Speci men Type: BLOOD SPECIMENOrdering Facility: [facility] Address: [address] [address] Performed By: #### 5 7021-8 ####[facility] LABCLIA [id number] [place] [address] Monocytes (Bld) [#/Vol] 0.68 10*3/uL Normal <0.87 [facility] Comment on above: Order Comment: Speci men Type: BLOOD SPECIMENOrdering Facility: [facility] Address: [address] [place] [address] Performed By: #### 5 7021-8 ####[facility] LABCLIA [id number] [place] [address] Monocytes/100 WBC (Bld) 10.0 % Normal C [facility] Comment on above: Order Comment: Speci men Type: BLOOD SPECIMENOrdering Facility: [facility] Address: [address] [place] [address] Performed By: #### 5 7021-8 ####[facility] LABCLIA [id number] [place] [address] Neutrophils (Bld) [#/Vol] 4.24 10*3/uL Normal 1.45-7.50 [facility] Comment on above: Order Comment: Speci men Type: BLOOD SPECIMENOrdering Facility: [facility] Address: [address] [place] [address] Performed By: #### 5 7021-8 ####[facility] LABCLIA [id number] [place] [address] Neutrophils/100 WBC (Bld) 62.3 % Normal [facility] Comment on above: Order Comment: Speci men Type: BLOOD SPECIMENOrdering Facility: [facility] Address: [address] [place] [address] Performed By: #### 5 7021-8 ####[facility] LABCLIA [id number] [place] [address] Nucleated RBC (Bld) [#/Vol] 10*3/uL Normal <0.01 [facility] Comment on above: Order Comment: Speci men Type: BLOOD SPECIMENOrdering Facility: [facility] Address: [address] [place] [address] Performed By: #### 5 7021-8 ####[facility] LABCLIA [id number] [place] [address] Nucleated RBC/100 WBC (Bld) [Ratio] 0.0 /100 WBC Normal [facility] Comment on above: Order Comment: Speci men Type: BLOOD SPECIMENOrdering Facility: [facility] Address: [address] [place] [address] Performed By: #### 5 7021-8 ####[facility] LABIA [id number] [place] [address] Platelet mean volume (Bld) [Entitic vol] 12.2 fL Normal 9.0-12.7 [facility] Comment on above: Order Comment: Speci men Type: BLOOD SPECIMENOrdering Facility: [facility] Address: [address] [place] [address] Performed By: #### 5 7021-8 ####[facility] LABIA [id number] [place] [address] Platelets (Bld) [#/Vol] 146 10*3/uL Low 150-400 [facility] Comment on above: Order Comment: Speci men Type: BLOOD SPECIMENOrdering Facility: [facility] Address: [address] [place] [address] Performed By: #### 5 7021-8 ####[facility] LABIA [id number] [place] [address] RBC (Bld) [#/Vol] 5.97 10*6/uL Normal 4.20-6.00 [facility] Comment on above: Order Comment: Speci men Type: BLOOD SPECIMENOrdering Facility: [facility] Address: [address] [place] [address] Performed By: #### 5 7021-8 ####[facility] [id number] [place] [address] WBC (Bld) [#/Vol] 6.80 10*3/uL Normal 3.70-11.00 [facility] Comment on above: Order Comment: Speci men Type: BLOOD SPECIMENOrdering Facility: [facility] Address: [address] [place] [address] Performed By: #### 5 7021-8 ####[facility] LABIA [id number] [place] [address] Keena 06-30-2023 KAREN Telephone (HEMASA) EBEN ARENAS ([id number]) 1960 M Date Time Provider Department 06/30/23 OLAF PANDYA During your visit today, we recorded the following information about you: Olaf Pandya RN 06/30/2023 2:24 PM Signed Pt's home Hgb 19.5 today. He was encouraged to call and schedule a phlebotomy >18. Jovan/MM: please place orders LIZBETH Kay Kasra, MD 06/30/2023 2:38 PM Signed Order placed for next week Cody Maldonado 07/01/2023 9:16 AM Signed Patient is scheduled for phlebotomy on Thursday, 07/10 and notified. Thanks! Cody Madlonado Allergies As of Date: 06/30/2023 Noted Allergy Reaction LORAZEPAM 04/07/2013 14 - Other: See Comments Comments: Ceres like he will pass out Date Reviewed: 04/22/2023 Reviewed by: Anselmo Mcpherson MD - Fully Assessed Reason for Visit: Appointment [186] Prescriptions as of 07/01/2023 - semaglutide (OZEMPIC SUBCUTANEOUS) Inject subcutaneously. - amoxicillin-clavulan ic acid (AUGMENTIN) 875-125 mg per tablet Take 1 tablet by mouth twice daily. - meloxicam (MOBIC) 15 mg tablet TAKE 1 TABLET BY MOUTH EVERY DAY FOR 30 DAYS - niacin (NIACIN) 500 mg tablet Take 500 mg by mouth daily with breakfast. - baclofen (LIORESAL) 10 mg tablet Take 10 mg by mouth as needed. - sildenafil (VIAGRA) 50 mg tablet TAKE 1 TABLET BY MOUTH NEEDED DAILY - lisinopril-hydroCHLO ROthiazide (PRINZIDE,ZESTORETIC ) 20-12.5 mg per tablet - IBUPROFEN ORAL Take by mouth. - aspirin 325 mg tablet Take 325 mg by mouth once daily. Problem List As Of Date 06/30/2023 Noted Resolved S/P right knee arthroscopy [Z98.890] 09/12/2016 Primary osteoarthritis of right knee [M17.11] 09/12/2016 S/P right knee yen tibial osteotomy and arthr*10/08/2016 Numbness of left foot [R20.0] 02/16/2017 Secondary polycythemia [D75.1] 07/18/2019 Encounter Status:Closed by CODY MALDONADO on 07/01/23 Normal [facility] CBC W Auto Differential pane l (Bld)on 04-22-2023 Basophils (Bld) [#/Vol] 0.07 10*3/uL Normal <0.11 [facility] Comment on above: Order Comment: Speci men Type: BLOOD SPECIMENOrdering Facility: [facility] Address: [address] [place] [address] Performed By: #### 5 7021-8 ####[facility] LABCLIA [id number] [place] [address] Basophils/100 WBC (Bld) 0.8 % Normal [facility] Comment on above: Order Comment: Speci men Type: BLOOD SPECIMENOrdering Facility: [facility] Address: [address] [place] [address] Performed By: #### 5 7021-8 ####[facility] LABCLIA [id number] [place] [address] Differential cell count method Nom (Bld) Auto Normal [facility] Comment on above: Order Comment: Speci men Type: BLOOD SPECIMENOrdering Facility: [facility] Address: [address] [place] [address] Performed By: #### 5 7021-8 ####[facility] LABCLIA [id number] [place] [address] Eosinophils (Bld) [#/Vol] 0.34 10*3/uL Normal <0.46 [facility] Comment on above: Order Comment: Speci men Type: BLOOD SPECIMENOrdering Facility: [facility] Address: [address] [place] [address] Performed By: #### 5 7021-8 ####[facility] LABCLIA [id number] [place] [address] Eosinophils/100 WBC (Bld) 3.8 % Normal [facility] Comment on above: Order Comment: Speci men Type: BLOOD SPECIMENOrdering Facility: [facility] Address: [address] [place] [address] Performed By: #### 5 7021-8 ####[facility] LABCLIA [id number] [place] [address] Erythrocyte distribution width (RBC) [Ratio] 13.5 % Normal 11.5-15.0 [facility] Comment on above: Order Comment: Speci men Type: BLOOD SPECIMENOrdering Facility: [facility] Address: [address] [place] [address] Performed By: #### 5 7021-8 ####[facility] LABCLIA [id number] [place] [address] Hematocrit (Bld) [Volume fraction] 54.7 % High 39.0-51.0 [facility] Comment on above: Order Comment: Speci men Type: BLOOD SPECIMENOrdering Facility: [facility] Address: [address] [place] [address] Performed By: #### 5 7021-8 ####[facility] LABIA [id number] [place] [address] Hemoglobin (Bld) [Mass/Vol] 18.5 g/dL High 13.0-17.0 [facility] Comment on above: Order Comment: Speci men Type: BLOOD SPECIMENOrdering Facility: [facility] Address: [address] [place] [address] Performed By: #### 5 7021-8 ####[facility] LABIA [id number] [place] [address] Immature granulocytes (Bld) [#/Vol] 0.03 10*3/uL Normal <0.10 [facility] Comment on above: Order Comment: Speci men Type: BLOOD SPECIMENOrdering Facility: [facility] Address: [address] [place] [address] Performed By: #### 5 7021-8 ####[facility] LABCLIA [id number] [place] [address] Immature granulocytes/100 WBC (Bld) 0.3 % Normal [facility] Comment on above: Order Comment: Speci men Type: BLOOD SPECIMENOrdering Facility: [facility] Address: [address] [place] [address] Performed By: #### 5 7021-8 ####[facility] LABCLIA [id number] [place] [address] Lymphocytes (Bld) [#/Vol] 1.58 10*3/uL Normal 1.00-4.00 [facility] Comment on above: Order Comment: Speci men Type: BLOOD SPECIMENOrdering Facility: [facility] Address: [address] [place] [address] Performed By: #### 5 7021-8 ####[facility] LABCLIA [id number] [place] [address] Lymphocytes/100 WBC (Bld) 17.5 % Normal [facility] Comment on above: Order Comment: Speci men Type: BLOOD SPECIMENOrdering Facility: [facility] Address: [address] [place] [address] Performed By: #### 5 7021-8 ####[facility] LABCLIA [id number] [place] [address] MCH (RBC) [Entitic mass] 32.3 pg Normal 26.0-34.0 [facility] Comment on above: Order Comment: Speci men Type: BLOOD SPECIMENOrdering Facility: [facility] Address: [address] [place] [address] Performed By: #### 5 7021-8 ####[facility] LABCLIA [id number] [place] [address] MCHC (RBC) [Mass/Vol] 33.8 g/dL Normal 30.5-36.0 [facility] Comment on above: Order Comment: Speci men Type: BLOOD SPECIMENOrdering Facility: [facility] Address: [address] [place] [address] Performed By: #### 5 7021-8 ####[facility] LABCLIA [id number] [place] [address] MCV (RBC) [Entitic vol] 95.5 fL Normal 80.0-100.0 C [facility] Comment on above: Order Comment: Speci men Type: BLOOD SPECIMENOrdering Facility: [facility] Address: [address] [place] [address] Performed By: #### 5 7021-8 ####[facility] LABCLIA [id number] [place] [address] Monocytes (Bld) [#/Vol] 0.96 10*3/uL High <0.87 [facility] Comment on above: Order Comment: Speci men Type: BLOOD SPECIMENOrdering Facility: [facility] Address: [address] [address] Performed By: #### 5 7021-8 ####[facility] LABCLIA [id number] [place] [address] Monocytes/100 WBC (Bld) 10.6 % Normal C [facility] Comment on above: Order Comment: Speci men Type: BLOOD SPECIMENOrdering Facility: [facility] Address: [address] [place] [address] Performed By: #### 5 7021-8 ####[facility] LABCLIA [id number] [place] [address] Neutrophils (Bld) [#/Vol] 6.07 10*3/uL Normal 1.45-7.50 [facility] Comment on above: Order Comment: Speci men Type: BLOOD SPECIMENOrdering Facility: [facility] Address: [address] [place] [address] Performed By: #### 5 7021-8 ####[facility] LABCLIA [id number] [place] [address] Neutrophils/100 WBC (Bld) 67.0 % Normal [facility] Comment on above: Order Comment: Speci men Type: BLOOD SPECIMENOrdering Facility: [facility] Address: [address] [place] [address] Performed By: #### 5 7021-8 ####[facility] LABCLIA [id number] [place] [address] Nucleated RBC (Bld) [#/Vol] 10*3/uL Normal <0.01 [facility] Comment on above: Order Comment: Speci men Type: BLOOD SPECIMENOrdering Facility: [facility] Address: [address] [place] [address] Performed By: #### 5 7021-8 ####[facility] LABCLIA [id number] [place] [address] Nucleated RBC/100 WBC (Bld) [Ratio] 0.0 /100 WBC Normal [facility] Comment on above: Order Comment: Speci men Type: BLOOD SPECIMENOrdering Facility: [facility] Address: [address] [place] [address] Performed By: #### 5 7021-8 ####[facility] LABCLIA [id number] [place] [address] Platelet mean volume (Bld) [Entitic vol] 11.7 fL Normal 9.0-12.7 [facility] Comment on above: Order Comment: Speci men Type: BLOOD SPECIMENOrdering Facility: [facility] Address: [address] [place] [address] Performed By: #### 5 7021-8 ####[facility] LABCLIA [id number] [place] [address] Platelets (Bld) [#/Vol] 149 10*3/uL Low 150-400 [facility] Comment on above: Order Comment: Speci men Type: BLOOD SPECIMENOrdering Facility: [facility] Address: [address] Performed By: #### 5 7021-8 ####[facility] LABIA [id number] [place] [address] RBC (Bld) [#/Vol] 5.73 10*6/uL Normal 4.20-6.00 [facility] Comment on above: Order Comment: Speci men Type: BLOOD SPECIMENOrdering Facility: [facility] Address: [address] [address] Performed By: #### 5 7021-8 ####[facility] LABIA [id number] [place] [address] WBC (Bld) [#/Vol] 9.05 10*3/uL Normal 3.70-11.00 [facility] Comment on above: Order Comment: Speci men Type: BLOOD SPECIMENOrdering Facility: [facility] Address: [address] [place] [address] Performed By: #### 5 7021-8 ####[facility] [id number] [place] [address] CNOVSPon 04-22-2023 [facility] Visit (SP) Office ([place]) EBEN ARENAS ([id number]) 1960 M Date Time Provider Department 04/22/23 3:15 PM ANSELMO MCPHERSON During your visit today, we recorded the following information about you: Temperature Pulse Respiration Blood pressure 96.8 degrees 77/minute 18/minute 136/68 Weight Height 132 kg 1.772 m Anselmo Mcpherson MD 04/22/2023 11:03 PM Signed PATIENT NAME: Eben Arenas CLINIC NO.: [id number] ATTENDING PHYSICIAN: Anselmo Mcpherson MD DATE OF SERVICE: December 17, 2022 Some of the elements of this note have been copied from my previous progress note dated 08/27/2022. All the information has been reviewed carefully. Dear Dr. APONTE here is an update on a follow up visit on male Eben Arenas at the clinic December 17, 2022 Diagnosis: 1. 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 HPI: Eben Arenas is a 62 year old year old male here for follow up. He states that when is red cell count is up he feels tired and denies any Hernandez and or visual changes and or itching. Continues with testosterone use and also was noted tohave an elevated Insulin level PAST MEDICAL HISTORY Diagnosis Date Former smoker HLD (hyperlipidemia) CHITIMACHA (hard of hearing) HTN (hypertension) Long-term use of aspirin therapy OA (osteoarthritis) of knee Polycythemia S/P right knee arthroscopy TIA (transient ischemic attack) Social History Tobacco Use Smoking status: Former Passive exposure: Past Smokeless tobacco: Former Types: Chew Quit date: 09/12/2016 Tobacco comments: QUIT 15 YEARS AGO Vaping Use Vaping Use: Never used Substance Use Topics Alcohol use: Yes Comment: rare Drug use: No FAMILY HISTORY Problem Relation Age of Onset Lipids Mother Hypertension Mother Hypertension Father Lipids Father Past medical, social and family history reviewed without any changes. REVIEW OF SYSTEMS GENERAL: No weight loss, malaise or fevers. No night sweats. HEENT: Negative for headaches, No changes in hearing or vision, no nose bleeds or other nasal problems. RESPIRATORY: Negative for cough, wheezing and shortness of breath CARDIOVASCULAR: Negative for chest pain, leg swelling and palpitations GI: Negative for abdominal discomfort, blood in stools or black stools and change in bowel habits : Negative for dysuria, frequency and incontinence MUSCULOSKELETAL: Negative for joint pain or swelling, back pain, and muscle pain. SKIN: Negative for lesions, rash, and itching. HEMATOLOGY/LYMPHOLOG Y Negative for prolonged bleeding, bruising easily, and swollen nodes. NEURO: Negative for numbness or tingling of hands/feet. No weakness. PHYSICAL EXAMINATION: BP 136/68 Pulse 77 Temp (Src) 96.8 (Temporal) Resp 18 Ht 5' 9.764 (1.77m) Wt 291 lb (132.0kg) SpO2 96% BMI 42.04 kg/(m2). Wt 130.2 kg (287 lb) BMI 41.46 kg/m2 Last 3 Encounter Wt Readings: Date: Wt: 08/15/2019 130.2 kg (287 lb) 07/18/2019 127.4 kg (280 lb 12.8 oz) 09/19/2016 117.9 kg (260 lb) General appearance:ECOG PERFORMANCE STATUS: 0- Fully active, able to carry on all pre-disease performance w/o restriction. Patient in NAD. Skin: Skin color, texture, turgor normal. No rashes or lesions. Eyes: Anicteric sclera. Pupils are equally round and reactive to light. Extraocular movements are intact. Lymph Nodes: No cervical, supraclavicular, axillary or inguinal adenopathy. Oropharynx: Lips, mucosa, and tongue normal. Back: No pain to percussion. Negative SLR test Lungs clear to auscultation, No wheezing or rhonchi Heart: RRR without murmur, gallop, or rubs. Abdomen soft, non-tender. No masses, organomegaly Extremities: No deformities. No edema Neuro: Gait and speech normal. Reflexes normal and symmetric. Muscular strength intact. Sensation grossly intact. Rectal: Deferred : Deferred LABS: Glucose (mg/dL) Date Value 04/22/2023 133 10/21/2019 Requisitioning entry error Potassium (mmol/L) Date Value 04/22/2023 3.8 10/21/2019 Requisitioning entry error Sodium (mmol/L) Date Value 04/22/2023 136 10/21/2019 Requisitioning entry error Chloride (mmol/L) Date Value 04/22/2023 105 10/21/2019 Requisitioning entry error CO2 (mmol/L) Date Value 04/22/2023 23 10/21/2019 Requisitioning entry error Creatinine (mg/dL) Date Value 04/22/2023 1.11 10/21/2019 Requisitioning entry error BUN (mg/dL) Date Value 04/22/2023 12 10/21/2019 Requisitioning entry error Anion Gap (mmol/L) Date Value 04/22/2023 8 10/21/2019 Requisitioning entry error Calcium (mg/dL) Date Value 10/21/2019 Requisitioning entry error Calcium, Total (mg/dL) Date Value 04/22/2023 9.4 Protein, Total (g/dL) Date Value 04/22/2023 6.4 10/21/2019 Requisitioning entr (more content not included)... Normal [facility] Comprehensive metabolic 2000 panelon 04-22-2023 Albumin [Mass/Vol] 4.1 g/dL Normal 3.9-4.9 [facility] Comment on above: Order Comment: Speci men Type: BLOOD SPECIMENOrdering Facility: [facility] Address: [address] [address] Performed By: #### 2 4323-8 ####[facility] LABCLIA [id number] [place] [address] ALP [Catalytic activity/Vol] 77 U/L Normal 38-113 [facility] Comment on above: Order Comment: Speci men Type: BLOOD SPECIMENOrdering Facility: [facility] Address: [address] [address] Performed By: #### 2 4323-8 ####[facility] LABCLIA [id number] [place] [address] ALT [Catalytic activity/Vol] 30 U/L Normal 10-54 [facility] Comment on above: Order Comment: Speci men Type: BLOOD SPECIMENOrdering Facility: [facility] Address: [address] [address] Performed By: #### 2 4323-8 ####[facility] LABCLIA [id number] [place] [address] Anion gap [Moles/Vol] 8 mmol/L Low 9-18 [facility] Comment on above: Order Comment: Speci men Type: BLOOD SPECIMENOrdering Facility: [facility] Address: [address] [address] Performed By: #### 2 4323-8 ####[facility] LABCLIA [id number] [place] [address] AST [Catalytic activity/Vol] 32 U/L Normal 14-40 [facility] Comment on above: Order Comment: Speci men Type: BLOOD SPECIMENOrdering Facility: [facility] Address: [address] [place] [address] Performed By: #### 2 4323-8 ####[facility] LABCLIA [id number] [place] [address] Bilirubin [Mass/Vol] 0.6 mg/dL Normal 0.2-1.3 [facility] Comment on above: Order Comment: Speci men Type: BLOOD SPECIMENOrdering Facility: [facility] Address: [address] [place] [address] Performed By: #### 2 4323-8 ####[facility] LABCLIA [id number] [place] [address] Calcium [Mass/Vol] 9.4 mg/dL Normal 8.5-10.2 [facility] Comment on above: Order Comment: Speci men Type: BLOOD SPECIMENOrdering Facility: [facility] Address: [address] [place] [address] Performed By: #### 2 4323-8 ####[facility] LABCLIA [id number] [place] [address] Chloride [Moles/Vol] 105 mmol/L Normal 97-105 [facility] Comment on above: Order Comment: Speci men Type: BLOOD SPECIMENOrdering Facility: [facility] Address: [address] [place] [address] Performed By: #### 2 4323-8 ####[facility] LABCLIA [id number] [place] [address] CO2 [Moles/Vol] 23 mmol/L Normal 22-30 [facility] Comment on above: Order Comment: Speci men Type: BLOOD SPECIMENOrdering Facility: [facility] Address: [address] [address] Performed By: #### 2 4323-8 ####[facility] LABCLIA [id number] [place] [address] Creatinine [Mass/Vol] 1.11 mg/dL Normal 0.73-1.22 [facility] Comment on above: Order Comment: Speci men Type: BLOOD SPECIMENOrdering Facility: [facility] Address: [address] [address] Performed By: #### 2 4323-8 ####[facility] LABCLIA [id number] [place] [address] ESTIMATED GLOMERULAR FILTRATION RATE 74 mL/min/1.73m??? Normal >=60 [facility] Comment on above: Order Comment: Speci men Type: BLOOD SPECIMENOrdering Facility: [facility] Address: [address] [place] [address] Result Comment: Nyla mated Glomerular Filtration Rate (eGFR) is calculated using the 2020 CKD-EPI creatinine equation. This equation utilizes serum creatinine, sex, and age as parameters. The creatinine assay has traceable calibration to isotope dilution-mass spectrometry. Refer to KDIGO guidelines for clinical interpretation. In patients with unstable renal function, e.g. those with acute kidney injury, the eGFR may not accurately reflect actual GFR. Performed By: #### 2 4323-8 ####[facility] LABCLIA [id number] [place] [address] Glucose [Mass/Vol] 133 mg/dL High 74-99 [facility] Comment on above: Order Comment: Isabeli carl Type: BLOOD SPECIMENOrdering Facility: [facility] Address: [address] [place] [address] Result Comment: The [place] [employer] Association (ADA) provides guidance for cutoff values for fasting glucose and random glucose. The ADA defines fasting as no caloric intake for at least 8 hours. Fasting plasma glucose results between 100 to 125 mg/dL indicate increased risk for diabetes (prediabetes). Fasting plasma glucose results greater than or equal to 126 mg/dL meet the criteria for diagnosis of diabetes. In the absence of unequivocal hyperglycemia, results should be confirmed by repeat testing. In a patient with classic symptoms of hyperglycemia or hyperglycemic crisis, random plasma glucose results greater than or equal to 200 mg/dL meet the criteria for diagnosis of diabetes. Reference: Standards of Medical Care in Diabetes 2016, [place] [employer]. Diabetes Care. 2016.39(Suppl 1). Performed By: #### 2 4323-8 ####[facility] LABCLIA [id number] [place] [address] Potassium [Moles/Vol] 3.8 mmol/L Normal 3.7-5.1 [facility] Comment on above: Order Comment: Speci men Type: BLOOD SPECIMENOrdering Facility: [facility] Address: [address] [place] [address] Performed By: #### 2 4323-8 ####[facility] LABIA [id number] [place] [address] Protein [Mass/Vol] 6.4 g/dL Normal 6.3-8.0 [facility] Comment on above: Order Comment: Speci men Type: BLOOD SPECIMENOrdering Facility: [facility] Address: [address] [place] [address] Performed By: #### 2 4323-8 ####[facility] LABCLIA [id number] [place] [address] Sodium [Moles/Vol] 136 mmol/L Normal 136-144 [facility] Comment on above: Order Comment: Speci men Type: BLOOD SPECIMENOrdering Facility: [facility] Address: [address] [place] [address] Performed By: #### 2 4323-8 ####[facility] LABIA [id number] [place] [address] Urea nitrogen [Mass/Vol] 12 mg/dL Normal 9-24 [facility] Comment on above: Order Comment: Speci men Type: BLOOD SPECIMENOrdering Facility: [facility] Address: [place] [address] Performed By: #### 2 4323-8 ####[facility] LABCLIA [id number] [place] [address] CHEMISTRYOrdered By: SYSTEM SYSTEM on 03-10-2023 Albumin [Mass/Vol] 3.9 g/dL Normal 3.3 - 5.0 gm/dL [facility] Albumin/Globulin [Mass ratio] 1.3 {ratio} Normal 1.1 - 2.2 [facility] ALP [Catalytic activity/Vol] 66 [iU]/d Normal 21 - 98 Int._Unit/L [facility] ALT No additional P-5'-P [Catalytic activity/Vol] 45 [iU]/d Normal 6 - 46 Int._Unit/L [facility] Anion gap [Moles/Vol] 10 mmol/L Normal 6 - 16 mEq/L [facility] AST [Catalytic activity/Vol] 33 [iU]/d Normal 5 - 43 Int._Unit/L [facility] Bilirubin [Mass/Vol] 0.7 mg/dL Normal 0.0 - 1 .1 mg/dL [facility] Calcium [Mass/Vol] 9.3 mg/dL Normal 8.9 - 11. 1 mg/dL [facility] Chloride [Moles/Vol] 107 mmol/L Normal 101 - 1 11 mmol/L [facility] CO2 [Moles/Vol] 25 mmol/L Normal 21 - 31 mmol/L [facility] Creatinine [Mass/Vol] 1.2 mg/dL Normal 0.5 - 1.3 mg/dL [facility] Free T4 [Mass/Vol] 0.70 ng/dL Normal 0.58 - 1. 64 ng/dL [facility] GFR/1.73 sq M.predicted among non-blacks MDRD (S/P/Bld) [Vol rate/Area] 68 mL/min/1.73 m2 Normal >=59mL/min/1.7 3 m2 [facility] Chem S Globulin (S) [Mass/Vol] 3.1 g/dL Normal 1.4 - 4.0 gm/dL [facility] Glucose [Mass/Vol] 119 mg/dL Normal 55 - 199 mg/dL [facility] Potassium [Moles/Vol] 3.4 mmol/L Low 3.5 - 5.3 mmol/L [facility] Protein [Mass/Vol] 7.0 g/dL Normal 6.0 - 7.8 gm/dL [facility] Sodium [Moles/Vol] 139 mmol/L Normal 135 - 145 mmol/L [facility] TSH Qn 2.06 m[IU]/L Normal 0.34 - 5.60 mcIU/mL [facility] Urea nitrogen [Mass/Vol] 14 mg/dL Normal 5 - 21 mg/dL [facility] Urea nitrogen/Creatinine [Mass ratio] 12 mg/mg Normal 10 - 20 [facility] CHEMISTRYOrdered By: Yeimy Hagen on 03-10-2023 HbA1c (Bld) [Mass fraction] 6.3 % High <=5.9% [facility] HEMATOLOGYOrdered By: SYSTEM SYSTEM on 03-10-2023 Basophils/100 WBC (Bld) 0.7 % Normal 0.0 - 2.0 % [facility] Basophils/Leukocytes Auto (Bld) [Pure # fraction] 0.0 E9/L Normal 0.0 - 0.2 E9/L [facility] Eosinophils/100 WBC (Bld) 4.4 % Normal 0.0 - 8.0 % [facility] Eosinophils/Leukocytes Auto (Bld) [Pure # fraction] 0.3 E9/L Normal 0.0 - 0.5 E9/L [facility] Lymphocytes/100 WBC (Bld) 24.6 % Normal 14.0 - 50.0 % [facility] Lymphocytes/Leukocytes Auto (Bld) [Pure # fraction] 1.5 E9/L Normal 1.0 - 4.0 E9/L [facility] Monocytes/100 WBC (Bld) 14.5 % High 4.0 - 14.0 % [facility] Monocytes/Leukocytes Auto (Bld) [Pure # fraction] 0.9 E9/L Normal 0.2 - 1.0 E9/L [facility] Neutrophils/100 WBC (Bld) 55.8 % Normal 36.0 - 75.0 % [facility] Neutrophils/Leukocytes Auto (Bld) [Pure # fraction] 3.5 E9/L Normal 2.0 - 7.5 E9/L [facility] HEMATOLOGYOrdered By: Nury Mcarthur on 03-10-2023 Erythrocyte distribution width (RBC) [Ratio] 14.3 % High 10.9 - 14.2 % [facility] Hematocrit (Bld) [Volume fraction] 52.0 % High 37.7 - 49.0 % [facility] Hemoglobin (Bld) [Mass/Vol] 17.4 g/dL Normal 13.5 - 17.5 gm/dL [facility] MCH (RBC) [Entitic mass] 31.9 pg Normal 27.0 - 34.0 pg [facility] MCHC (RBC) [Mass/Vol] 33.4 g/dL Normal 31.4 - 36.0 gm/dL [facility] MCV (RBC) [Entitic vol] 95.8 fL Normal 80.0 - 100.0 fL [facility] Platelet mean volume (Bld) [Entitic vol] 10.8 fL Normal 6.4 - 10.8 fL [facility] Platelets (Bld) [#/Vol] 164.0 E9/L Normal 150. 0 - 500.0 E9/L [facility] RBC (Bld) [#/Vol] 5.4 E12/L Normal 4.3 - 5.9 E12/L [facility] WBC corrected for nucl RBC Auto (Bld) [#/Vol] 6.3 E9/L Normal 4.0 - 11.0 E9/L [facility] Office Visit (Cardiology)on 12-30-2022 Follow-up visit Diagnoses/Problems Assessed Hypertension (401.9) (I10) PAC (premature atrial contraction) (427.61) (I49.1) Palpitations (785.1) (R00.2) Morbid obesity with BMI of 40.0-44.9, adult (278.01,V85.41) (E66.01,Z68.41) Orders Morbid obesity with BMI of 40.0-44.9, adult Healthy Weight Tips; Status:Complete - Retrospective Authorization; Done: 30Dec2022 Some eating tips that can help you lose weight.; Status:Complete - Retrospective Authorization; Done: 30Dec2022 Patient Instructions Please bring all medicines, vitamins, and herbal supplements with you when you come to the office. Prescriptions will not be filled unless you are compliant with your follow up appointments or have a follow up appointment scheduled as per instruction of your physician. Refills should be requested at the time of your visit. Follow up as needed only The provider reviewed the following test(s) and result(s) with the patient: raj Chief Complaint EBEN ARENAS is being seen for Testing results. History of Present Illness Patient returns in follow-up of recent evaluation. As before we found his stress test and echo to be normal. Because of his complaints of palpitation and event monitor was performed demonstrating benign PACs and PVCs but no sustained ventricular or supraventricular arrhythmias, no atrial fib, no atrial flutter. This was explained to him in detail. Interestingly, he states his arrhythmia symptomatology subsided several weeks ago and has not been recurrent. Because of this I am reluctant to recommend any additional testing or changes in therapy. I advised him, though, that if he were to have increased ectopy or first maneuver would be to adjust or change his medications in a way that would increase his potassium level which I believe in turn would suppress premature extrasystoles. Otherwise it appears to be there is no indication or need to make a change. His blood pressure is well controlled symptoms are resolved and he is active with no functional limitations whatsoever. We did, as before, advocate diet exercise and weight loss in an effort to achieve ideal body mass index. Surgical History Problems History of Knee arthroscopy left History of Lipoma excision History of Medial meniscus repair Current Meds Medication NameInstruction Aspirin 325 MG Oral Tablet Delayed ReleaseTake 1 tablet daily Baclofen 10 MG Oral TabletTAKE 1 TABLET 3 TIMES DAILY NEEDED FOR MUSCLE SPASM. Lisinopril-hydroCHLO ROthiazide 20-12.5 MG Oral TabletTAKE 1 TABLET DAILY. Multi Vitamin Oral TabletTAKE 1 TABLET DAILY. Patient did not bring medication list or bottles. Updated verbally with patient Allergies Medication Ativan Adverse Reaction; Dizziness; Recorded By: Alejandrina Apodaca; 11/05/2022 12:12:18 PM Social History Problems Caffeine use (V49.89) (Z78.9) Former smoker (V15.82) (Z87.891) No illicit drug use Occasional alcohol use Review of Systems Constitutional: not feeling tired. Eyes: no eyesight problems. ENT: no hearing loss and no nosebleeds. Cardiovascular: no intermittent leg claudication and as noted in HPI. Respiratory: no chronic cough and no shortness of breath. Gastrointestinal: no change in bowel habits and no blood in stools. Genitourinary: no urinary frequency and no hematuria. Skin: no skin rashes. Neurological: no seizures and no frequent falls. Psychiatric: no depression and not suicidal. All other systems have been reviewed and are negative for complaint. Vitals Vital Signs Recorded: 30Dec2022 11:58AM Heart Rate76, L Radial [id number], LUE, Sitting Igogjemms52, LUE, Sitting Height5 ft 10 in Knbjkx077 lb BMI Vgslpuzrqa05.46 kg/m2 BSA Calculated2.42 Tobacco Useb) No Physical Exam Constitutional: alert and in no acute distress. Eyes: no erythema, swelling or discharge from the eye . Neck: neck is supple, symmetric, trachea midline, no masses and no thyromegaly . Pulmonary: no increased work of breathing or signs of respiratory distress and lungs clear to auscultation. Cardiovascular: carotid pulses 2+ bilaterally with no bruit , JVP was normal, no thrills , regular rhythm, normal S1 and S2, no murmurs , pedal pulses 2+ bilaterally and no edema . Abdomen: abdomen non-tender, no masses and no hepatomegaly . Skin: skin warm and dry, normal skin turgor . Psychiatric judgment and insight is normal and oriented to person, place and time . Signatures Electronically signed by : Americo Rabago MD; Dec 30 2022 5:52PM EST (Author) Normal [employer] Tobacco Screening.on 023 Tobacco use status HS b) No M [facility] [address] DO Work Phone: US MONICA DOP LEG BILon 023 US MONICA DOP LEG MAUREEN EXAMINATION: US MONICA DOP LEG MAUREEN HISTORY: Edema COMPARISON: No relevant comparison available. TECHNIQUE: Grayscale, color and Doppler ultrasound FINDINGS: Right leg: Thrombus: Echogenic thrombus in the superficial small saphenous vein Flow: Normal proximal flow Compressibility: Noncompressibility corresponding to thrombus Augmentation: Normal proximal augmentation Left leg: Thrombus: None Flow: Normal Compressibility: Normal Augmentation: Normal Findings communicated by the technologist to the ordering physician office by telephone at the time of exam IMPRESSION: Superficial vein thrombus right small saphenous vein *Exam performed in accordance with [facility] practice guidelines- Peripheral venous ultrasound, January 05, 2010. Electronically authenticated by: ANUPAM MENDOZA Date: 2022-12-12 16:37 Normal [facility] Cardiovasc Arrhythmia Result son 11-10-2022 Cardiovasc Arrhythmia Results Reason For Visit Event Monitor: Holter monitor printed and placed on Dr. Americo Rabago MD desk to dictate. EBEN is here for the application of a 30 day event monitor in office., Diagnosis: palps, abn ekg Ordering Physician: Dr. Americo Rabago MD Enrollment sent to: [employer] Monitor number [id number] applied. Diagnosis/Problems Assessed Abnormal EKG (794.31) (R94.31) Palpitations (785.1) (R00.2) Patient Discussion/Summary Patient underwent 30-day event monitoring for complaints of palpitation. The following observations are made: 1. There was 1 baseline transmission and 12 patient triggered events. There were no automatically triggered events. 2. The baseline transmission demonstrated sinus rhythm rate 73 bpm. 2. 2 of the remaining 12 recordings demonstrated sinus rhythm with rates ranging between 78 and 84 bpm. 3. The remaining 10 episodes of patient triggered events were associated with complaints of racing, fluttering, palpitation, shortness of breath, and chest pain. Review of the strips demonstrates sinus rhythm with rates less than 100 bpm. All of the episodes were associated with PACs or PVCs. In addition there were 2 episodes of SVT 1 of which was 3 beats in length the other 7 beats in length. The rate was 164 bpm. 4. There were no sustained runs of SVT nor any episodes of malignant ventricular tachyarrhythmia. Future Appointments Date/TimeProviderSpe cialtySite 12/30/2022 11:30 Americo Fernando, [id number] [facility] [address] [address] DO Signatures Electronically signed by : Americo Rabago MD; Nov 21 2022 9:39AM EST (Author) Normal ScramblerMail Office Visit (Cardiology)on 11-05-2022 Follow-up visit Diagnoses/Problems Assessed Palpitations (785.1) (R00.2) Abnormal EKG (794.31) (R94.31) PAC (premature atrial contraction) (427.61) (I49.1) Morbid obesity with BMI of 40.0-44.9, adult (278.01,V85.41) (E66.01,Z68.41) Hypertension (401.9) (I10) Orders Abnormal EKG, Palpitations IO Event Monitor 30 days; Status:Complete - Retrospective By Protocol Authorization; Done: 05Nov2022 Morbid obesity with BMI of 40.0-44.9, adult Healthy Weight Tips; Status:Complete - Retrospective Authorization; Done: 05Nov2022 Some eating tips that can help you lose weight.; Status:Complete - Retrospective Authorization; Done: 05Nov2022 Palpitations IO EKG Electrocardiogram- 12 Lead; Status:Complete; Done: 05Nov2022 SocHx: Former smoker Tobacco Use Screening; Status:Complete; Done: 05Nov2022 Tobacco Use Screening; Status:Complete; Done: 05Nov2022 Patient Instructions Please bring all medicines, vitamins, and herbal supplements with you when you come to the office. Prescriptions will not be filled unless you are compliant with your follow up appointments or have a follow up appointment scheduled as per instruction of your physician. Refills should be requested at the time of your visit. Follow up after testing The provider reviewed the following test(s) and result(s) with the patient: echocardiogram and Myocardial perfusion study Chief Complaint EBEN ARENAS is being seen for a consultation for. History of Present Illness Patient is seen in consultation at the request of his primary care physician because of a abnormal stress test . He is an individual who presented with complaints of palpitation and chest pain. For this he underwent stress testing with isotope imaging. It demonstrated no scar and no ischemia. It suggested a an ejection fraction of 47%. At that time he had an echocardiogram as well. It was basically normal except for a suggestion of diastolic dysfunction. I advised the patient that there appears to be no evidence or symptoms of coronary disease or infarct. His ejection fraction is normal by echo which is more reliable. He was reassured in this regard. He does, though, question his palpitations. PACs noted on today's EKG but the possibility of other arrhythmias exists and because of this and his high anxiety level I recommended an 30-day event monitor to capture some of the arrhythmia symptomatology that he is feeling and are noticing. We will reconvene thereafter to go over the results and determine a plan of care. In the meantime he was encouraged to attempt diet and weight loss and the favorable impact on his wellbeing was emphasized. Blood pressure for the moment acceptably controlled but the benefits of weight loss and its favorable impact on blood pressure control was explained Surgical History Problems History of Knee arthroscopy left History of Lipoma excision History of Medial meniscus repair Current Meds Medication NameInstruction Aspirin 325 MG Oral Tablet Delayed ReleaseTake 1 tablet daily Baclofen 10 MG Oral TabletTAKE 1 TABLET 3 TIMES DAILY NEEDED FOR MUSCLE SPASM. Lisinopril-hydroCHLO ROthiazide 20-12.5 MG Oral TabletTAKE 1 TABLET DAILY. Multi Vitamin Oral TabletTAKE 1 TABLET DAILY. Vitamin D3 CAPSTAKE 1 CAPSULE Daily Patient did not bring medication list or bottles. Updated verbally with patient Allergies Medication Ativan Adverse Reaction; Dizziness; Recorded By: Alejandrina Apodaca; 11/05/2022 12:12:18 PM Social History Problems Caffeine use (V49.89) (Z78.9) Former smoker (V15.82) (Z87.891) No illicit drug use Occasional alcohol use Review of Systems Constitutional: not feeling tired. Eyes: no eyesight problems. ENT: no hearing loss and no nosebleeds. Cardiovascular: no intermittent leg claudication and as noted in HPI. Respiratory: no chronic cough and no shortness of breath. Gastrointestinal: no change in bowel habits and no blood in stools. Genitourinary: no urinary frequency and no hematuria. Skin: no skin rashes. Neurological: no seizures and no frequent falls. Psychiatric: no depression and not suicidal. All other systems have been reviewed and are negative for complaint. Vitals Vital Signs Recorded: 05Nov2022 02:26PM Heart Rate84, Apical Usqfoepq301, RUE, Sitting [id number], RUE, Sitting Height5 ft 10 in Rnklsh660 lb BMI Rwdxynmisp43.32 kg/m2 BSA Calculated2.41 Tobacco Useb) No PHQ-2 #1. Over the last 2 weeks have you felt down, depressed or hopeless? (If yes, answer PHQ-9 below)No PHQ-2 #2. Over the last 2 weeks have you felt little interest or pleasure in doing things? (If yes, answer PHQ-9 below)No EKG done in office today Physical Exam Constitutional: alert and in no acute distress. Eyes: no erythema, swelling or discharge from the eye . Neck: neck is supple, symmetric, trachea midline, no masses and no thyromegaly . Pulmonary: no increased work of breathing or signs of respiratory distress and lungs clear to aus (more content not included)... Normal [employer] Tobacco Screening.on 023 Adult depression screening assessment No [facility] [address] DO Work Phone: Tobacco use status [facility] b) No M [facility] [address] DO Work Phone: BLOOD BANKOrdered By: Ayala Whitt on 08-05-2022 ABO/Rh Interp Positive Invalid Interpretation Code [facility] BB Subsection ABSC Gel Interp Negative (08/05/22 6:31 AM) Normal [facility] BB Subsection CHEMISTRYOrdered By: SYSTEM SYSTEM on 08-05-2022 Potassium [Moles/Vol] 3.6 mmol/L Normal 3.5 - 5.3 mmol/L [facility] Remisol HEMATOLOGYOrdered By: Yadira Marina on 08-05-2022 Platelets (Bld) [#/Vol] 130.0 E9/L Low 150. 0 - 500.0 E9/L [facility] HemeAutoSS BLOOD BANKOrdered By: Arlin Moreno on 07-18-2022 ABO/Rh Retype Interp Positive Invalid Interpretation Code [facility] BB Subsection CHEMISTRYOrdered By: SYSTEM SYSTEM on 07-18-2022 Anion gap [Moles/Vol] 10 mmol/L Normal 6 - 16 mEq/L [facility] [place] Remisol Chloride [Moles/Vol] 100 mmol/L Low 101 - 1 11 mmol/L [facility] Remisol CO2 [Moles/Vol] 27 mmol/L Normal 21 - 31 mmol/L [facility] Remisol Creatinine [Mass/Vol] 1.0 mg/dL Normal 0.5 - 1.3 mg/dL [facility] Remisol GFR/1.73 sq M.predicted among blacks MDRD (S/P/Bld) [Vol rate/Area] mL/min/1.73 m2 Normal >=59mL/min/1.7 3 m2 [facility] Chem S GFR/1.73 sq M.predicted among non-blacks MDRD (S/P/Bld) [Vol rate/Area] mL/min/1.73 m2 Normal >=59mL/min/1.7 3 m2 [facility] Chem S Glucose [Mass/Vol] 124 mg/dL Normal 55 - 199 mg/dL [facility] Remisol Potassium [Moles/Vol] 3.2 mmol/L Low 3.5 - 5.3 mmol/L [facility] Sodium [Moles/Vol] 134 mmol/L Low 135 - 145 mmol/L [facility] Urea nitrogen [Mass/Vol] 8 mg/dL Normal 5 - 21 mg/dL [facility] HEMATOLOGYOrdered By: Sahsa Kahn on 07-18-2022 Erythrocyte distribution width (RBC) [Ratio] 13.4 % Normal 10.9 - 14.2 % [facility] Hematocrit (Bld) [Volume fraction] 57.1 % High 37.7 - 49.0 % [facility] Hemoglobin (Bld) [Mass/Vol] 19.4 g/dL High 13.5 - 17.5 gm/dL [facility] MCH (RBC) [Entitic mass] 32.5 pg Normal 27.0 - 34.0 pg FT [facility] MCHC (RBC) [Mass/Vol] 34.0 g/dL Normal 31.4 - 36.0 gm/dL [facility] MCV (RBC) [Entitic vol] 95.8 fL Normal 80.0 - 100.0 fL [facility] HemeAutoSS Platelet mean volume (Bld) [Entitic vol] 10.9 fL High 6.4 - 10.8 fL [facility] HemeAutoSS Platelets (Bld) [#/Vol] 117.0 E9/L Low 150. 0 - 500.0 E9/L [facility] RBC (Bld) [#/Vol] 6.0 E12/L High 4.3 - 5.9 E12/L [facility] WBC corrected for nucl RBC Auto (Bld) [#/Vol] 6.2 E9/L Normal 4.0 - 11.0 E9/L [facility] URINALYSISOrdered By: Ayala Whitt on 07-18-2022 Bilirubin Ql (U) Negative (07/18/22 8:30 AM) Normal Negative [facility]A Auto SS Clarity (U) Clear (07/18/22 8:30 AM) Normal Clear [facility] UA Auto SS Color (U) Yellow (07/18/22 8:30 AM) Normal Yellow [facility] UA Auto SS Epithelial cells.squamous LM.HPF (Urine sed) [#/Area] 0-2 /HPF Normal 0-2/HPF [facility] UA Aut o SS Glucose Test strip (U) [Mass/Vol] Negative (07/18/22 8:30 AM) Normal Negative [facility] UA Auto SS Hemoglobin Ql (U) Negative (07/18/22 8:30 AM) Normal Negative [facility] UA Auto SS Ketones (U) [Mass/Vol] Negative (07/18/22 8:30 AM) Normal Negative [facility] UA Auto SS [place].plasma/[place]. RBC (Bld) [Mass ratio] 0-3 /HPF Normal 0-3/HPF [facility] A uto SS Nitrite Ql (U) Negative (07/18/22 8:30 AM) Normal Negative [facility] UA Auto SS pH (U) 6.0 *NA* (07/18/22 8:30 AM) Invalid Interpretation Code 5.0 - 9.0 [facility] UA Auto SS Protein (U) [Mass/Vol] Negative (07/18/22 8:30 AM) Normal Negative [facility] UA Auto SS Specific gravity (U) [Rel density] 1.020 *NA* (07/18/22 8:30 AM) Invalid Interpretation Code 1.005 - 1.030 [facility] UA Auto SS UA Spec Desc Clean Catch (07/18/22 8:30 AM) Normal [facility] UA Auto SS Urobilinogen Qn (U) [id number] {Duc'U}/dL Normal 0.0 - 1.0 EU/dL [facility] UA Auto SS WBC Auto Ql (U) Negative (07/18/22 8:30 AM) Normal Negative [facility] UA Auto SS WBC LM.HPF (Urine sed) [#/Area] 0-5 /HPF Normal 0-5/HPF [facility] UA Auto SS Vital Signs Date Time Vital Sign Value Performing Clinician Facility 03-29-2024 10:39-0400 Heart rate 75 /min David Cao [facility] 03-29-2024 10:39-0400 SaO2% (BldA) [Mass fraction] 96 % David Cao [facility] 03-29-2024 10:39-0400 Respiratory rate 16 /min David Cao [facility] 03-29-2024 10:38-0400 Diastolic blood pressure 84 mm[Hg] David Cao [facility] 03-29-2024 10:38-0400 Mean blood pressure 110 mm[Hg] David Cao [facility] 03-29-2024 10:38-0400 Systolic blood pressure 161 mm[Hg] David Cao [facility] 03-29-2024 10:17-0400 Diastolic blood pressure 98 mm[Hg] David Cao [facility] 03-29-2024 10:17-0400 Heart rate 78 /min David Cao [facility] 03-29-2024 10:17-0400 SaO2% (BldA) [Mass fraction] 98 % David Cao [facility] 03-29-2024 10:17-0400 Systolic blood pressure 135 mm[Hg] David Cao [facility] 03-29-2024 09:07-0400 Heart rate 70 /min David Cao [facility] 03-29-2024 09:07-0400 SaO2% (BldA) [Mass fraction] 96 % Hernandez Nash [facility] 03-29-2024 09:04-0400 Diastolic blood pressure 87 mm[Hg] David Cao [facility] 03-29-2024 09:04-0400 Mean blood pressure 101 mm[Hg] David Cao [facility] 03-29-2024 09:04-0400 Systolic blood pressure 127 mm[Hg] David Cao [facility] 03-29-2024 09:04-0400 Body temperature 98.06 [degF] David Cao [facility] 03-29-2024 09:04-0400 Respiratory rate 16 /min David Cao [facility] 03-22-2024 13:28-0400 Body height 177.2 cm Anselmo Mcpherson MD Work Phone: [facility] 03-22-2024 13:28-0400 Body mass index (BMI) [Ratio] 41.4 kg/m2 Anselmo Mcpherson MD Work Phone: [facility] 03-22-2024 13:28-0400 Body temperature 97.11 [degF] Anselmo Mcpherson MD Work Phone: [facility] 03-22-2024 13:28-0400 Body weight 130 kg Anselmo Mcpherson MD Work Phone: [facility] 03-22-2024 13:28-0400 Diastolic blood pressure 70 mm[Hg] Anselmo Mcpherson MD Work Phone: [facility] 03-22-2024 13:28-0400 Heart rate 78 /min Anselmo Mcpherson MD Work Phone: [facility] 03-22-2024 13:28-0400 Respiratory rate 18 /min Anselmo Mcpherson MD Work Phone: [facility] 03-22-2024 13:28-0400 SaO2% (BldA) [Mass fraction] 94 % Anselmo Mcpherson MD Work Phone: [facility] 03-22-2024 13:28-0400 Systolic blood pressure 123 mm[Hg] Anselmo Mcpherson MD Work Phone: [facility] 02-17-2024 11:19-0400 Body height 175.26 cm [facility] 02-17-2024 11:19-0400 Body mass index (BMI) [Ratio] 41.5 kg/m2 [facility] 02-17-2024 11:19-0400 Body weight 127.45 kg [facility] 02-17-2024 11:19-0400 Diastolic blood pressure 79 mm[Hg] [facility] 02-17-2024 11:19-0400 Heart rate 61 /min [facility] 02-17-2024 11:19-0400 Systolic blood pressure 118 mm[Hg] [facility] 02-12-2024 14:12-0400 Diastolic blood pressure 81 mm[Hg] Staci FooPets [facility] 02-12-2024 14:12-0400 Heart rate 73 /min Staci [facility] 02-12-2024 14:12-0400 Mean blood pressure 97 mm[Hg] Staci [facility] 02-12-2024 14:12-0400 Respiratory rate 14 /min Staci [facility] 02-12-2024 14:12-0400 Systolic blood pressure 129 mm[Hg] Staci [facility]Pets [facility] 02-04-2024 15:01-0400 Heart rate 54 /min Ruben CHASE [facility] 02-04-2024 15:01-0400 SaO2% (BldA) [Mass fraction] 96 % Ruben NILL [facility] 02-04-2024 15:01-0400 Diastolic blood pressure 82 mm[Hg] Ruben NILL [facility] 02-04-2024 15:01-0400 Mean blood pressure 97 mm[Hg] Ruben NILL [facility] 02-04-2024 15:01-0400 Systolic blood pressure 125 mm[Hg] Ruben NILL [facility] 02-04-2024 15:01-0400 Respiratory rate 18 /min Ruben NILL [facility] 02-04-2024 14:45-0400 Diastolic blood pressure 60 mm[Hg] Ruben NILL [facility] 02-04-2024 14:45-0400 Heart rate 71 /min Ruben NILL [facility] 02-04-2024 14:45-0400 SaO2% (BldA) [Mass fraction] 96 % Ruben NILL [facility] 02-04-2024 14:45-0400 Systolic blood pressure 129 mm[Hg] Ruben NILL [facility] 02-04-2024 14:42-0400 Diastolic blood pressure 84 mm[Hg] Ruben NILL [facility] 02-04-2024 14:42-0400 Heart rate 67 /min Ruben NILL [facility] 02-04-2024 14:42-0400 SaO2% (BldA) [Mass fraction] 95 % Ruben NILL [facility] 02-04-2024 14:42-0400 Systolic blood pressure 125 mm[Hg] Ruben NILL [facility] 02-04-2024 12:20-0400 Body temperature 97.52 [degF] Ruben NILL [facility] 02-04-2024 12:20-0400 Blood Pressure Location Ruben NILL [facility] 02-04-2024 12:20-0400 Mean blood pressure 97 mm[Hg] Ruben NILL [facility] 02-04-2024 12:20-0400 Respiratory rate 20 /min Ruben NILL [facility] 01-28-2024 12:44-0400 Blood Pressure Location Ruben NILL [facility] [place] 01-28-2024 12:44-0400 Diastolic blood pressure 81 mm[Hg] Ruben NILL [facility] [place] 01-28-2024 12:44-0400 Heart rate 68 /min Ruben NILL [facility] [place] 01-28-2024 12:44-0400 Respiratory rate 16 /min Ruben NILL [facility] [place] 01-28-2024 12:44-0400 Systolic blood pressure 142 mm[Hg] Ruben NILL [facility] 01-27-2024 14:53-0400 Heart rate 67 /min David Cao [facility] 01-27-2024 14:53-0400 SaO2% (BldA) [Mass fraction] 96 % David Cao [facility] 01-27-2024 14:53-0400 Diastolic blood pressure 76 mm[Hg] David Cao [facility] 01-27-2024 14:53-0400 Mean blood pressure 92 mm[Hg] David Cao [facility] 01-27-2024 14:53-0400 Systolic blood pressure 124 mm[Hg] David Cao [facility] 01-27-2024 14:45-0400 Diastolic blood pressure 94 mm[Hg] David Cao [facility] 01-27-2024 14:45-0400 Heart rate 73 /min David Cao [facility] 01-27-2024 14:45-0400 Respiratory rate 16 /min David Cao [facility] 01-27-2024 14:45-0400 SaO2% (BldA) [Mass fraction] 98 % David Cao [facility] 01-27-2024 14:45-0400 Systolic blood pressure 147 mm[Hg] David Cao [facility] 01-27-2024 13:50-0400 Heart rate 64 /min David Cao [facility] 01-27-2024 13:50-0400 SaO2% (BldA) [Mass fraction] 95 % David Cao [facility] 01-27-2024 13:50-0400 Body temperature 97.7 [degF] David Cao [facility] 01-27-2024 13:49-0400 Diastolic blood pressure 74 mm[Hg] David Cao [facility] 01-27-2024 13:49-0400 Mean blood pressure 86 mm[Hg] David Cao [facility] 01-27-2024 13:49-0400 Systolic blood pressure 109 mm[Hg] David Cao [facility] 01-27-2024 13:49-0400 Respiratory rate 20 /min David Cao [facility] 01-12-2024 11:28-0400 Body height 175.26 cm MD Julia Mcdaniels Work Phone: [facility] 01-12-2024 11:28-0400 Body mass index (BMI) [Ratio] 41.1 kg/m2 MD Julia Mcdaniels Work Phone: [facility] 01-12-2024 11:28-0400 Body weight 126.32 kg MD Julia Mcdaniels Work Phone: [facility] 01-12-2024 11:28-0400 Diastolic blood pressure 75 mm[Hg] MD Julia Mcdaniels Work Phone: [facility] 01-12-2024 11:28-0400 Heart rate 64 /min MD Julia Mcdaniels Work Phone: [facility] 01-12-2024 11:28-0400 Systolic blood pressure 114 mm[Hg] MD Julia Mcdaniels Work Phone: [facility] 12-29-2023 14:54-0400 Body height 177.2 cm Margarita Elke PA-C Work Phone: [facility] 12-29-2023 14:54-0400 Body temperature 97.59 [degF] Margarita Elke PA-C Work Phone: [facility] 12-29-2023 14:54-0400 Body weight 126.6 kg Margarita Elke PA-C Work Phone: [facility] 12-29-2023 14:54-0400 Diastolic blood pressure 89 mm[Hg] Margarita Elke PA-C Work Phone: [facility] 12-29-2023 14:54-0400 Heart rate 72 /min Margarita Elke PA-C Work Phone: [facility] 12-29-2023 14:54-0400 Respiratory rate 16 /min Margarita Elke PA-C Work Phone: [facility] 12-29-2023 14:54-0400 SaO2% (BldA) [Mass fraction] 97 % Margarita Elke PA-C Work Phone: [facility] 12-29-2023 14:54-0400 Systolic blood pressure 147 mm[Hg] Margarita Elke PA-C Work Phone: [facility] 12-14-2023 13:38-0500 Diastolic blood pressure 88 mm[Hg] Staci Kevin [facility] 12-14-2023 13:38-0500 Heart rate 74 /min Staci Kevin [facility] 12-14-2023 13:38-0500 Mean blood pressure 107 mm[Hg] Staci Kevin [facility] 12-14-2023 13:38-0500 Respiratory rate 18 /min Staci Kevin [facility] 12-14-2023 13:38-0500 Systolic blood pressure 144 mm[Hg] Staci Kevin [facility] 12-08-2023 13:14-0500 Body height 175.26 cm MD Julia Mcdaniels Work Phone: [facility] 12-08-2023 13:14-0500 Body mass index (BMI) [Ratio] 40.8 kg/m2 MD Julia Mcdaniels Work Phone: [facility] 12-08-2023 13:14-0500 Body weight 125.41 kg MD Julia Mcdaniels Work Phone: [facility] 12-08-2023 13:14-0500 Diastolic blood pressure 69 mm[Hg] MD Julia Mcdaniels Work Phone: [facility] 12-08-2023 13:14-0500 Heart rate 72 /min MD Julia Mcdaniels Work Phone: [facility] 12-08-2023 13:14-0500 Systolic blood pressure 146 mm[Hg] MD Julia Mcdaniels Work Phone: [facility] 10-26-2023 15:16-0500 Body height 177.8 cm Alejandrina Apodaca [facility] 10-26-2023 15:16-0500 Body mass index (BMI) [Ratio] 39.6 kg/m2 Alejandrina Apodaca [facility] 10-26-2023 15:16-0500 Body weight 125.19 kg Alejandrina Apodaca [facility] 10-26-2023 15:16-0500 Diastolic blood pressure 74 mm[Hg] Alejandrina Apodaca [facility] 10-26-2023 15:16-0500 Heart rate 138 /min Alejandrina Apodaca [facility] 10-26-2023 15:16-0500 Systolic blood pressure 114 mm[Hg] Alejandrina Apodaca [facility] 10-22-2023 09:42-0500 Body height 177.8 cm Jen [facility] 10-22-2023 09:42-0500 Body mass index (BMI) [Ratio] 39.6 kg/m2 [facility] 10-22-2023 09:42-0500 Body weight 125.19 kg [facility] 10-22-2023 09:42-0500 Diastolic blood pressure 78 mm[Hg] [facility] 10-22-2023 09:42-0500 Heart rate 142 /min [facility] 10-22-2023 09:42-0500 Systolic blood pressure 98 mm[Hg] Jen [facility] 10-07-2023 13:26-0500 Diastolic blood pressure 82 mm[Hg] Americo Rabago MD Work Phone: [facility] 10-07-2023 13:26-0500 Systolic blood pressure 110 mm[Hg] Americo Rabago MD Work Phone: [facility] 10-07-2023 13:21-0500 Body height 177.8 cm Americo Rabago MD Work Phone: [facility] 10-07-2023 13:21-0500 Body mass index (BMI) [Ratio] 40.46 kg/m2 Americo Rabago MD Work Phone: [facility] 10-07-2023 13:21-0500 Body weight 127.91 kg Americo Rabago MD Work Phone: [facility] 10-07-2023 13:21-0500 Heart rate 159 /min Americo Rabago MD Work Phone: [facility] 08-26-2023 15:50-0500 Body temperature 98.29 [degF] Chair Mineral Work Phone: [facility] 08-26-2023 15:50-0500 Diastolic blood pressure 80 mm[Hg] Chair Sharmin Work Phone: [facility] 08-26-2023 15:50-0500 Heart rate 80 /min Chair Sharmin Work Phone: [facility] 08-26-2023 15:50-0500 Respiratory rate 16 /min Chair Mineral Work Phone: [facility] 08-26-2023 15:50-0500 Systolic blood pressure 140 mm[Hg] Chair Mineral Work Phone: [facility] 08-26-2023 15:02-0500 Body height 177.2 cm Anselmo Mcpherson MD Work Phone: [facility] 08-26-2023 15:02-0500 Body temperature 97.59 [degF] Anselmo Mcpherson MD Work Phone: [facility] 08-26-2023 15:02-0500 Body weight 129.28 kg Anselmo Mcpherson MD Work Phone: [facility] 08-26-2023 15:02-0500 Diastolic blood pressure 76 mm[Hg] Anselmo Mcphreson MD Work Phone: [facility] 08-26-2023 15:02-0500 Heart rate 87 /min Anselmo Mcpherson MD Work Phone: [facility] 08-26-2023 15:02-0500 Respiratory rate 18 /min Anselmo Mcpherson MD Work Phone: [facility] 08-26-2023 15:02-0500 SaO2% (BldA) [Mass fraction] 97 % Anselmo Mcpherson MD Work Phone: [facility] 08-26-2023 15:02-0500 Systolic blood pressure 135 mm[Hg] Anselmo Mcpherson MD Work Phone: [facility] 06-23-2023 16:45-0400 Body height 175.26 cm Julia Mcdaniels Other [employer] Other 06-23-2023 16:45-0400 Body mass index (BMI) [Ratio] 42.94 kg/m2 Julia Mcdaniels Other [employer] Other 06-23-2023 16:45-0400 Body weight 131.91 kg Julia Mcdaniels Other [employer] Other 06-23-2023 16:45-0400 Diastolic blood pressure 71 mm[Hg] Julia Mcdaniels Other [employer] Other 06-23-2023 16:45-0400 Respiratory rate 12 /min Julia Mcdaniels Other [employer] Other 06-23-2023 16:45-0400 Systolic blood pressure 110 mm[Hg] Julia Mcdaniels Other [employer] Other 06-23-2023 15:45-0400 Body height 175.26 cm Julia Mcdaniels Other [employer] Other 06-23-2023 15:45-0400 Body mass index (BMI) [Ratio] 42.94 kg/m2 Julia Mcdaniels Other [facility] Other 06-23-2023 15:45-0400 Body weight 131.91 kg Julia Mcdaniels Other [facility] Other 06-23-2023 15:45-0400 Diastolic blood pressure 71 mm[Hg] Julia Mcdaniels Other [facility] Other 06-23-2023 15:45-0400 Respiratory rate 12 /min Julia Mcdaniels Other [facility] Other 06-23-2023 15:45-0400 Systolic blood pressure 110 mm[Hg] Julia Mcdaniels Other [facility] Other 05-28-2023 14:15-0400 Body height 175.26 cm Julia Mcdaniels Other [facility] Other 05-28-2023 14:15-0400 Body mass index (BMI) [Ratio] 42.82 kg/m2 Julia Mcdaniels Other [facility] Other 05-28-2023 14:15-0400 Body weight 131.54 kg Julia Mcdaniels Other [facility] Other 05-28-2023 14:15-0400 Diastolic blood pressure 78 mm[Hg] Julia Mcdaniels Other [facility] Other 05-28-2023 14:15-0400 SaO2% (BldA) [Mass fraction] 96 % Julia Mcdaniels Other [facility] Other 05-28-2023 14:15-0400 Systolic blood pressure 140 mm[Hg] Julia Mcdaniels Other [facility] Other 04-22-2023 16:22-0400 Body temperature 98.01 [degF] Chair Mineral Work Phone: [facility] 04-22-2023 16:22-0400 Diastolic blood pressure 70 mm[Hg] Chair Sharmin Work Phone: [facility] 04-22-2023 16:22-0400 Heart rate 77 /min Chair Mineral Work Phone: [facility] 04-22-2023 16:22-0400 Respiratory rate 18 /min Chair Sharmin Work Phone: [facility] 04-22-2023 16:22-0400 Systolic blood pressure 132 mm[Hg] Chair Sharmin Work Phone: [facility] 04-22-2023 15:11-0400 Body height 177.2 cm Anselmo Mcpherson MD Work Phone: [facility] 04-22-2023 15:11-0400 Body temperature 96.8 [degF] Anselmo Mcpherson MD Work Phone: [facility] 04-22-2023 15:11-0400 Body weight 132 kg Anselmo Mcpherson MD Work Phone: [facility] 04-22-2023 15:11-0400 Diastolic blood pressure 68 mm[Hg] Anselmo Mcpherson MD Work Phone: [facility] 04-22-2023 15:11-0400 Heart rate 77 /min Anselmo Mcpherson MD Work Phone: [facility] 04-22-2023 15:11-0400 Respiratory rate 18 /min Anselmo Mcpherson MD Work Phone: [facility] 04-22-2023 15:11-0400 SaO2% (BldA) [Mass fraction] 96 % Anselmo Mcpherson MD Work Phone: [facility] 04-22-2023 15:11-0400 Systolic blood pressure 136 mm[Hg] Anselmo Mcpherson MD Work Phone: [facility] 04-16-2023 09:30-0400 Body height 175.26 cm Julia Mcdaniels Other [facility] Other 04-16-2023 09:30-0400 Body mass index (BMI) [Ratio] 42.7 kg/m2 Julia Mcdaniels Other [facility] Other 04-16-2023 09:30-0400 Body weight 131.18 kg Julia Mcdaniels Other [facility] Other 04-16-2023 09:30-0400 Diastolic blood pressure 70 mm[Hg] Julia Mcdaniels Other [facility] Other 04-16-2023 09:30-0400 Systolic blood pressure 101 mm[Hg] Julia Mcdaniels Other [facility] Other 03-10-2023 10:30-0400 Body height 175.26 cm Julia Mcdaniels Other [facility] Other 03-10-2023 10:30-0400 Body mass index (BMI) [Ratio] 42.97 kg/m2 Julia Mcdaniels Other [facility] Other 03-10-2023 10:30-0400 Body weight 132 kg Julia Mcdaniels Other [facility] Other 03-10-2023 10:30-0400 Diastolic blood pressure 76 mm[Hg] Julia Mcdaniels Other [facility] Other 03-10-2023 10:30-0400 Systolic blood pressure 133 mm[Hg] Julia Mcdaniels Other [facility] Other 12-30-2022 11:58-0400 Body height 177.8 cm Julia Mcdaniels Work Phone: [email or web address] 250 DO Work Phone: 12-30-2022 11:58-0400 Body mass index (BMI) [Ratio] 40.46 kg/m2 Julia Mcdaniels Work Phone: [email or web address] 250 DO Work Phone: 12-30-2022 11:58-0400 Body surface area Derived from formula 2.42 m2 Julia Mcdaniels Work Phone: [facility] 250 DO Work Phone: 12-30-2022 11:58-0400 Body weight 127.92 kg Julia Mcdaniels Work Phone: [facility] 250 DO Work Phone: 12-30-2022 11:58-0400 Diastolic blood pressure 68 mm[Hg] Julia Mcdaniels Work Phone: [facility] 250 DO Work Phone: 12-30-2022 11:58-0400 Heart rate 76 /min Julia Mcdaniels Work Phone: [facility] 250 DO Work Phone: 12-30-2022 11:58-0400 Systolic blood pressure 112 mm[Hg] Julia Mcdaniels Work Phone: [facility] 250 DO Work Phone: 12-17-2022 16:07-0500 Diastolic blood pressure 70 mm[Hg] Chair Mineral Work Phone: [facility] 12-17-2022 16:07-0500 Heart rate 60 /min Chair Mineral Work Phone: [facility] 12-17-2022 16:07-0500 Respiratory rate 18 /min Chair Mineral Work Phone: [facility] 12-17-2022 16:07-0500 Systolic blood pressure 121 mm[Hg] Chair Mineral Work Phone: [facility] 12-17-2022 15:22-0500 Body height 177.2 cm Anselmo Mcpherson MD Work Phone: [facility] 12-17-2022 15:22-0500 Body temperature 97.39 [degF] Anselmo Mcpherson MD Work Phone: [facility] 12-17-2022 15:22-0500 Body weight 125.47 kg Anselmo Mcpherson MD Work Phone: [facility] 12-17-2022 15:22-0500 Diastolic blood pressure 85 mm[Hg] Anselmo Mcpherson MD Work Phone: [facility] 12-17-2022 15:22-0500 Heart rate 82 /min Anselmo Mcpherson MD Work Phone: [facility] 12-17-2022 15:22-0500 Respiratory rate 18 /min Anselmo Mcpherson MD Work Phone: [facility] 12-17-2022 15:22-0500 SaO2% (BldA) [Mass fraction] 98 % Anselmo Mcpherson MD Work Phone: [facility] 12-17-2022 15:22-0500 Systolic blood pressure 124 mm[Hg] Anselmo Mcpherson MD Work Phone: [facility] 11-05-2022 14:26-0500 Body height 177.8 cm Julia Mcdaniels Work Phone: [facility] 250 DO Work Phone: 11-05-2022 14:26-0500 Body mass index (BMI) [Ratio] 40.32 kg/m2 Julia Mcdaniels Work Phone: [facility] 250 DO Work Phone: 11-05-2022 14:26-0500 Body surface area Derived from formula 2.41 m2 Julia Mcdaniels Work Phone: [facility] 250 DO Work Phone: 11-05-2022 14:26-0500 Body weight 127.46 kg Julia Mcdaniels Work Phone: [facility] 250 DO Work Phone: 11-05-2022 14:26-0500 Diastolic blood pressure 88 mm[Hg] Julia Mcdaniels Work Phone: [facility] 250 DO Work Phone: 11-05-2022 14:26-0500 Heart rate 84 /min Julia Mcdaniels Work Phone: [facility] 250 DO Work Phone: 11-05-2022 14:26-0500 Systolic blood pressure 126 mm[Hg] Julia Mcdaniels Work Phone: [facility] 250 DO Work Phone: 10-23-2022 15:38-0500 47 1 Julia Mcdaniels Work Phone: [facility] 250 DO Work Phone: Comment on above: [place] [id number] 10-23-2022 15:30-0500 65 1 Julia Mcdaniels Work Phone: [facility] 250 DO Work Phone: Comment on above: [id number] 10-23-2022 14:01-0500 Body height 177.8 cm MD Julia Mcdaniels Work Phone: [facility] 10-23-2022 14:01-0500 Body weight 127 kg MD Julia Mcdaniels Work Phone: [facility] 10-23-2022 13:35-0500 Diastolic blood pressure 84 mm[Hg] MD Julia Mcdaniels Work Phone: [facility] 10-23-2022 13:35-0500 Heart rate 71 /min MD Julia Mcdaniels Work Phone: [facility] 10-23-2022 13:35-0500 Systolic blood pressure 134 mm[Hg] MD Julia Mcdaniels Work Phone: [facility] 10-15-2022 15:30-0500 Body height 175.26 cm Julia Mcdaniels Other [facility] Other 10-15-2022 15:30-0500 Body mass index (BMI) [Ratio] 42.97 kg/m2 Julia Mcdaniels Other [facility] Other 10-15-2022 15:30-0500 Body weight 132 kg Julia Mcdaniels Other [facility] Other 10-15-2022 15:30-0500 Diastolic blood pressure 82 mm[Hg] Julia Mcdaniels Other [facility] Other 10-15-2022 15:30-0500 SaO2% (BldA) [Mass fraction] 97 % Julia Mcdaniels Other [facility] Other 10-15-2022 15:30-0500 Systolic blood pressure 140 mm[Hg] Julia Mcdaniels Other [facility] Other 08-27-2022 14:46-0500 Body height 177.2 cm Anselmo Mcpherson MD Work Phone: [facility] 08-27-2022 14:46-0500 Body temperature 97.9 [degF] Anselmo Mcpherson MD Work Phone: [facility] 08-27-2022 14:46-0500 Body weight 128.82 kg Anselmo Mcpherson MD Work Phone: [facility] 08-27-2022 14:46-0500 Diastolic blood pressure 80 mm[Hg] Anselmo Mcpherson MD Work Phone: [facility] 08-27-2022 14:46-0500 Heart rate 79 /min Anselmo Mcpherson MD Work Phone: [facility] 08-27-2022 14:46-0500 Respiratory rate 18 /min Anselmo Mcpherson MD Work Phone: [facility] 11-16-2022 14:46-0500 SaO2% (BldA) [Mass fraction] 94 % Anselmo Mcpherson MD Work Phone: [facility] 08-27-2022 14:46-0500 Systolic blood pressure 146 mm[Hg] Anselmo Mcpherson MD Work Phone: [facility] 08-05-2022 16:20-0400 Blood Pressure Location Anupam Pocos [facility] 08-05-2022 16:20-0400 Body temperature 98.06 [degF] Anupam Pocos [facility] 08-05-2022 16:20-0400 BP/Pulse Patient Position Anupam Pocos [facility] 08-05-2022 16:20-0400 Diastolic blood pressure 85 mm[Hg] Anupam Pocos [facility] 08-05-2022 16:20-0400 Heart rate 80 /min Anupam Pocos [facility] 08-05-2022 16:20-0400 Respiratory rate 16 /min Anupam Pocos [facility] 08-05-2022 16:20-0400 SaO2% (BldA) [Mass fraction] 97 % Anupam Pocos [facility] 08-05-2022 16:20-0400 Systolic blood pressure 128 mm[Hg] Anupam Pocos [facility] 08-05-2022 15:25-0400 Blood Pressure Location Anupam Pocos [facility] 08-05-2022 15:25-0400 BP/Pulse Patient Position Anupam Pocos [facility] 08-05-2022 15:25-0400 Diastolic blood pressure 76 mm[Hg] Anupam Pocos [facility] 08-05-2022 15:25-0400 Heart rate 78 /min Anupam Pocos [facility] 08-05-2022 15:25-0400 Mean blood pressure 90 mm[Hg] Anupam Pocos [facility] 08-05-2022 15:25-0400 Respiratory rate 18 /min Anupam Pocos [facility] 08-05-2022 15:25-0400 SaO2% (BldA) [Mass fraction] 96 % Anupam Pocos [facility] 08-05-2022 15:25-0400 Systolic blood pressure 118 mm[Hg] Anupam Pocos [facility] 08-05-2022 12:45-0400 Blood Pressure Location Anupam Pocos [facility] 08-05-2022 12:45-0400 Body temperature 97.52 [degF] Anupam Pocos [facility] 08-05-2022 12:45-0400 Diastolic blood pressure 84 mm[Hg] Anupam Pocos [facility] 08-05-2022 12:45-0400 Heart rate 96 /min Anupam Pocos [facility] 08-05-2022 12:45-0400 Mean blood pressure 97 mm[Hg] Anupam Pocos [facility] 08-05-2022 12:45-0400 Respiratory rate 16 /min Anupam Pocos [facility] 08-05-2022 12:45-0400 SaO2% (BldA) [Mass fraction] 93 % Anupam Pocos [facility] 08-05-2022 12:45-0400 Systolic blood pressure 125 mm[Hg] Anupam Pocos [facility] 08-05-2022 12:30-0400 Body temperature 96.98 [degF] Anupam Pocos [facility] 08-05-2022 12:30-0400 Respiratory rate 18 /min Anupam Pocos [facility] 08-05-2022 12:20-0400 Respiratory rate 16 /min Anupam Pocos [facility] 08-05-2022 12:05-0400 Respiratory rate 15 /min Anupam Pocos [facility] 08-05-2022 11:31-0400 Body temperature 97.52 [degF] Anupam Pocos [facility] 08-05-2022 06:25-0400 Mean blood pressure 88 mm[Hg] Anupam Pocos [facility] 08-05-2022 06:23-0400 Body temperature 97.7 [degF] Anupam Pocos [facility] 08-05-2022 06:23-0400 Heart rate 74 /min Anupam Pocos [facility] 07-30-2022 14:27-0400 Diastolic blood pressure 73 mm[Hg] Chair Mineral Work Phone: [facility] 07-30-2022 14:27-0400 Heart rate 64 /min Chair Mineral Work Phone: [facility] 07-30-2022 14:27-0400 Respiratory rate 18 /min Chair Mineral Work Phone: [facility] 07-30-2022 14:27-0400 Systolic blood pressure 120 mm[Hg] Chair Mineral Work Phone: [facility] 07-30-2022 13:34-0400 Body height 177.2 cm Margarita ACOSTA-C Work Phone: [facility] 07-30-2022 13:34-0400 Body temperature 97.5 [degF] Margarita Elke PA-C Work Phone: [facility] 07-30-2022 13:34-0400 Body weight 129.28 kg Margarita Elke PA-C Work Phone: [facility] 07-30-2022 13:34-0400 Diastolic blood pressure 81 mm[Hg] Margarita Elke PA-C Work Phone: [facility] 07-30-2022 13:34-0400 Heart rate 71 /min Margarita Elke PA-C Work Phone: [facility] 07-30-2022 13:34-0400 Respiratory rate 20 /min Margarita Elke PA-C Work Phone: [facility] 07-30-2022 13:34-0400 SaO2% (BldA) [Mass fraction] 96 % Margarita Elke PA-C Work Phone: [facility] 07-30-2022 13:34-0400 Systolic blood pressure 150 mm[Hg] Margarita Elke PA-C Work Phone: [facility] 07-18-2022 07:51-0400 Blood Pressure Location Anupam Pocos [facility] 07-18-2022 07:51-0400 BP/Pulse Patient Position Anupam Pocos [facility] 07-18-2022 07:51-0400 Diastolic blood pressure 79 mm[Hg] Anupam Pocos [facility] 07-18-2022 07:51-0400 Heart rate 81 /min Anupam Pocos [facility] 07-18-2022 07:51-0400 Mean blood pressure 95 mm[Hg] Anupam Pocos [facility] 07-18-2022 07:51-0400 Respiratory rate 18 /min Anupam Pocos [facility] 07-18-2022 07:51-0400 SaO2% (BldA) [Mass fraction] 96 % Anupam Pocos [facility] 07-18-2022 07:51-0400 Systolic blood pressure 125 mm[Hg] Anupam Pocos [facility] 07-18-2022 07:51-0400 Body temperature 97.7 [degF] Anupam Pocos [facility] 07-18-2022 07:50-0400 Diastolic blood pressure 83 mm[Hg] Anupam Pocos [facility] 07-18-2022 07:50-0400 Heart rate 85 /min Anupam Pocos [facility] 07-18-2022 07:50-0400 Mean blood pressure 96 mm[Hg] Anupam Pocos [facility] 07-18-2022 07:50-0400 SaO2% (BldA) [Mass fraction] 96 % Anupam Pocos [facility] 07-18-2022 07:50-0400 Systolic blood pressure 122 mm[Hg] Anupam Selfos [facility] 07-18-2022 07:50-0400 Blood Pressure Location Anupam Selfos [facility] Encounters Encounter Date Encounter Type Care Provider Facility Start: 04-05-2024 ambulatory Anselmo Mcpherson MD Work Phone: Hematology/Oncology Comment on above: Hemoglobin-Testoster one Start: 03-29-2024 End: 03-29-2024 ambulatory DO David Cao Facility:[facility] Start: 03-29-2024 End: 03-29-2024 Pain Management David Cao [facility] Start: 03-22-2024 End: 03-22-2024 Patient encounter procedure Anselmo Mcpherson MD Work Phone: Hematology/Oncology Start: 03-22-2024 End: 03-22-2024 ambulatory Anselmo Mcpherson MD Work Phone: Hematology/Oncology Comment on above: Polycythemia, second jc (Primary Dx) Start: 03-14-2024 End: 03-14-2024 ambulatory ANUPAM Anand POCOS Not Available Start: 03-01-2024 End: 03-01-2024 ambulatory JULIA MCDANIELS Facility:[facility] Start: 03-01-2024 End: 03-01-2024 Patient encounter procedure JULIA MCDANIELS [facility] Start: 02-22-2024 ambulatory Anselmo Mcpherson MD Work Phone: Hematology/Oncology Start: 02-22-2024 Patient encounter procedure Anselmo Mcpherson MD Work Phone: Hematology/Oncology Comment on above: Appointment changed to March Start: 02-17-2024 End: 02-17-2024 ambulatory [facility] Work Phone: Start: 02-17-2024 End: 02-17-2024 Patient encounter procedure [facility] Work Phone: Start: 02-12-2024 End: 02-12-2024 Pain Management Staci Kevin [facility] Start: 02-12-2024 End: 02-12-2024 ambulatory PA-C Staci Kevin Facility:[facility] Start: 02-12-2024 End: 02-12-2024 Patient encounter procedure Ruben CHASE [facility] [place] Start: 02-10-2024 End: 02-10-2024 Patient encounter procedure Anupam Quesada [facility] Start: 02-10-2024 End: 02-10-2024 ambulatory ANUPAM Anand VICKY Not Available Start: 02-04-2024 End: 02-04-2024 Admission to same day surgery center Ruben CHASE [facility] Start: 02-04-2024 End: 02-04-2024 ambulatory Ruben CHASE Facility:[facility] Start: 01-28-2024 End: 01-28-2024 ambulatory Ruben CAHSE Facility:[facility] Start: 01-28-2024 End: 01-28-2024 Patient encounter procedure Ruben CHASE [facility] [place] Start: 01-27-2024 End: 01-27-2024 ambulatory DO David Cao Facility:[facility] Start: 01-27-2024 End: 01-27-2024 Pain Management David Cao [facility] Start: 01-21-2024 End: 01-21-2024 ambulatory [facility] Start: 01-14-2024 ambulatory ELIAS Mills cility:[facility] Start: 01-14-2024 [facility]ing [facility] Work Phone: [facility] [employer] [facility] Start: 01-12-2024 End: 01-12-2024 ambulatory MD Julia Mcdaniels Work Phone: [facility] Work Phone: Start: 01-12-2024 End: 01-12-2024 Patient encounter procedure MD Julia Mcdaniels Work Phone: [facility] Work Phone: Start: 12-29-2023 End: 12-29-2023 Visit (SP) Office Margarita Taylor PA-C Work Phone: Hematology/Oncology Comment on above: Polycythemia, second jc (Primary Dx); Low testosterone in male; Platelet disorder (HCC) Start: 12-29-2023 Non-patient / Non-visit MD Nuha Mcdaniels Work Phone: [facility] Physician [facility] Professional [employer] Work Phone: Start: 12-14-2023 End: 12-14-2023 ambulatory JULIA MCDANIELS Facility:[facility] Start: 12-14-2023 End: 12-14-2023 Pain Management Staci Kevin [facility] Start: 12-08-2023 End: 12-08-2023 Patient encounter procedure MD Julia Mcdaniels Work Phone: [facility] Physician [facility] Work Phone: Start: 11-18-2023 End: 11-18-2023 ambulatory Julia Mcdaniels Other [facility] Other Start: 11-18-2023 Encounter by I-MD Julia Mcdaniels [facility] Start: 11-04-2023 Encounter by I-MD Julia Mcdaniels [facility] Start: 11-04-2023 Telephone encounter Julia Mcdaniels [facility] Start: 11-04-2023 End: 11-04-2023 ambulatory Americo Balderasshara Facility:[facility] Start: 11-04-2023 End: 11-04-2023 Admission to same day surgery center MD Julia Mcdaniels Work Phone: [facility] Work Phone: Start: 11-04-2023 End: 11-04-2023 ambulatory MD Julia Mcdaniels Work Phone: [facility] Work Phone: Start: 10-28-2023 End: 10-28-2023 ambulatory Julia Mcdaniels Other [facility] Other Start: 10-28-2023 Encounter by I-MD Julia Mcdainels [facility] Start: 2023 End: 2023 ambulatory JULIA MCDANIELS Facility:[facility] Start: 10-26-2023 End: 10-26-2023 Professional / ancillary services management Alejandrina Apodaca [facility] Comment on above: Persistent atrial fi brillation (CMS/HCC) Start: 10-26-2023 End: 10-26-2023 ambulatory [facility] Start: 10-22-2023 End: 10-22-2023 ambulatory [facility] Start: 10-22-2023 End: 10-22-2023 Professional / ancillary services management Jen Aguilar [facility] Comment on above: Persistent atrial fi brillation (CMS/HCC) Start: 10-14-2023 End: 10-14-2023 ambulatory [facility] Start: 10-07-2023 Encounter for other preprocedural examination [facility] Start: 10-07-2023 End: 10-07-2023 Office outpatient visit 25 minutes Americo Rabago MD Work Phone: [facility] Comment on above: Abnormal EKG; Essential hypertension; Persistent atrial fibrillation (CMS/HCC); Preoperative clearance; PAC (premature atrial contraction); Palpitations Start: 10-07-2023 End: 10-07-2023 Preoperative state Americo Rabago MD Work Phone: [facility] Work Phone: Start: 10-07-2023 End: 10-07-2023 ambulatory [facility] Start: 10-07-2023 End: 10-07-2023 Encounter for other preprocedural examination [facility] Start: 09-30-2023 ambulatory Margarita Taylor PA-C Work Phone: Hematology/Oncology Comment on above: Testosterone Start: 09-30-2023 Telephone encounter Margarita thomas PA-C Work Phone: Hematology/Oncology Comment on above: Patient Question Start: 09-29-2023 End: 09-29-2023 ambulatory ANSELMO MCPHERSON Facility:[facility] Start: 09-29-2023 End: 09-29-2023 ambulatory ANSELMO MCPHERSON Facility:[facility] Start: 09-09-2023 End: 09-09-2023 Patient encounter procedure Anupam Anand Poccindi [facility] Start: 09-09-2023 End: 09-09-2023 ambulatory ANUPAM Anand POCOS Not Available Start: 09-07-2023 End: 09-08-2023 ambulatory Torres Foote MD Facility:[facility] Start: 09-01-2023 End: 09-01-2023 ambulatory Anupam Anand Pocos Facility:[facility] Start: 09-01-2023 End: 09-01-2023 Patient encounter procedure Anupam Quesada [facility] Start: 08-26-2023 End: 08-26-2023 Patient encounter procedure Anselmo Mcpherson MD Work Phone: [facility] Start: 08-26-2023 End: 08-26-2023 ambulatory Anselmo Mcpherson MD Work Phone: Hematology/Oncology Comment on above: Polycythemia, second jc (Primary Dx) Secondary polycythem ia (Primary Dx) Start: 08-10-2023 End: 08-11-2023 ambulatory [facility] Start: 07-17-2023 End: 07-17-2023 ambulatory Julia Mcdaniels Other [facility] Other Start: 07-17-2023 Telephone encounter Julia Mcdaniels [facility] Start: 07-10-2023 End: 07-13-2023 ambulatory JULIA MCDANIELS Facility:[facility] Start: 06-30-2023 Telephone encounter Olaf Jordan Hematology/Oncology Comment on above: Appointment Start: 06-23-2023 End: 06-23-2023 ambulatory Julia Mcdaniels Other [facility] Other Start: 06-23-2023 Office outpatient vi sit 15 minutes Julia Arslan [facility] Start: 05-29-2023 End: 05-29-2023 ambulatory Julia Arslan Other [facility] Other Start: 05-29-2023 Telephone encounter Julia Arslan [facility] Start: 05-28-2023 End: 05-28-2023 ambulatory Julia Mcdaniels Other [facility] Other Start: 05-28-2023 Office outpatient vi sit 15 minutes Julia Arslan [facility] Start: 05-25-2023 End: 05-25-2023 ambulatory Julia Arslan Other [facility] Other Start: 05-25-2023 Telephone encounter Julia Arslan [facility] Start: 04-22-2023 End: 04-22-2023 Patient encounter procedure Anselmo Mcpherson MD Work Phone: [facility] Start: 04-22-2023 End: 04-22-2023 ambulatory Chair 21 Sharmin Work Phone: Hematology/Oncology Comment on above: Secondary polycythem ia (Primary Dx) Polycythemia, second jc (Primary Dx) Start: 04-16-2023 End: 04-16-2023 ambulatory Julia Arslan Other [facility] Other Start: 04-16-2023 Office outpatient vi sit 15 minutes Julia Arslan [facility] Start: 03-26-2023 End: 03-26-2023 ambulatory Julia Mcdaniels Other [facility] Other Start: 03-26-2023 Telephone encounter Julia Arslan [facility] Start: 03-25-2023 End: 03-25-2023 ambulatory Julia Arslan Other [facility] Other Start: 03-25-2023 Telephone encounter Julia Arslan [facility] Start: 03-10-2023 End: 03-10-2023 ambulatory Julia Mcdaniels Other [facility] Other Start: 03-10-2023 Office outpatient vi sit 15 minutes Julia Arslan [facility] Start: 03-10-2023 End: 03-10-2023 Patient encounter procedure JULIA MCDANIELS [facility] Start: 01-21-2023 End: 01-21-2023 ambulatory Julia Mcdaniels Other [employer] Other Start: 01-21-2023 Telephone encounter Julia Arslan [facility] Start: 12-30-2022 Office outpatient vi sit 15 minutes Julia Mcdaniels Work Phone: [facility] 250 DO Work Phone: Start: 12-30-[address] Americo Rabago II Facility: Start: 12-17-2022 End: 12-17-2022 ambulatory Anselmo Mcpherson MD Work Phone: Hematology/Oncology Comment on above: Polycythemia, second jc (Primary Dx) Secondary polycythem ia (Primary Dx) Start: 12-17-2022 End: 12-17-2022 Patient encounter procedure Anselmo Mcpherson MD Work Phone: [place] Start: 12-12-2022 End: 12-13-[address] MARCEL ANTOINE Facility: Start: 11-21-[address] Americo Rabago II Facility: Start: 11-10-2022 Patient encounter procedure Julia Mcdaniels Work Phone: [facility] 250 DO Work Phone: Start: 11-10-[address] Americo Rabago II Facility: Start: 11-05-2022 Office consultation new/estab patient 60 min Julia Mcdaniels Work Phone: [facility] 250 DO Work Phone: Start: 11-05-[address] Americo Rabago II Facility: Start: 2022 End: 2022 ambulatory Julia Mcdaniels Other [place] [employer] Other Start: 2022 Telephone encounter Julia Mcdaniels [facility] Start: 10-23-2022 End: 10-23-2022 ambulatory MD Julia Mcdaniels Work Phone: [facility] Work Phone: Start: 10-23-2022 End: 10-23-2022 Patient encounter procedure MD Julia Mcdaniels Work Phone: [facility] Work Phone: Start: 10-23-[address] Julia Mcdaniels Facility:[id number] Start: 10-23-[address] Americo Walker II Facility:[id number] Start: 10-21-2022 End: 10-21-2022 ambulatory Julia Mcdaniels Other [employer] Other Start: 10-21-2022 Telephone encounter Julia Mcdaniels [facility] Start: 10-16-2022 End: 10-16-2022 ambulatory Julia Mcdaniels Other [employer] Other Start: 10-16-2022 Telephone encounter Julia Mcdaniels [facility] Start: 10-15-2022 End: 10-15-2022 ambulatory Julia Mcdaniels Other [employer] Other Start: 10-15-2022 Office outpatient vi sit 15 minutes Julia Mcdaniels [facility] Start: 09-03-2022 End: 09-03-2022 ambulatory MD Julia Mcdaniels Work Phone: [facility] Work Phone: Start: 09-03-2022 End: 09-03-2022 Patient encounter procedure MD Julia Mcdaniels Work Phone: [facility] Start: 08-27-2022 End: 08-27-2022 ambulatory Anselmo Mcpherson MD Work Phone: Hematology/Oncology Comment on above: Polycythemia, second jc (Primary Dx) Start: 08-27-2022 End: 08-27-2022 Patient encounter procedure Anselmo Mcpherson MD Work Phone: [facility] Start: 08-25-2022 Adult health examination Marce Mcdaniels Other [employer] Other Start: 08-25-2022 Preoperative cardiovascular examination Julia Mcdaniels Other [employer] Other Start: 08-14-2022 End: 08-15-[address] ROMAN AMIN . Facility:[facility]1 Start: 08-05-2022 End: 08-05-2022 Admission to same day surgery center Anupam Quesada [facility] Start: 07-30-2022 End: 07-30-2022 ambulatory Chair 21 [place] Work Phone: Hematology/Oncology Comment on above: Secondary polycythem ia (Primary Dx) Polycythemia, second jc (Primary Dx) Start: 07-30-2022 End: 07-30-2022 Patient encounter procedure Margarita Taylor PA-C Work Phone: [facility] Start: 07-18-[address] Americo Walker II Facility: Start: 07-18-2022 End: 07-18-2022 Patient encounter procedure Anupam Quesada [facility] Start: 05-22-2022 End: 05-23-[address] ROMAN AMIN . Facility:[facility]1 Start: 01-23-2022 End: 01-24-[address] ROMAN AMIN . Facility:[facility]1 Start: 01-01-2022 End: 01-02-2022 ambulatory JANIS NEGRITO . Facility:[facility] Start: 12-24-2021 End: 12-24-[address] ROMAN AMIN . Facility:[facility]1 Procedures Date Procedure Procedure Detail Performing Clinician Start: 02-04-2024 Excision of cyst Staci Kevin Comment on above: upper and lower back Start: 02-04-2024 Removal of pilonidal cyst Ruben CHASE Start: 01-27-2024 Injection into facet joint of lumbar spine using fluoroscopic guidance Staci FooPets Comment on above: 100% for 4hrs Start: 10-26-2023 ECG 12-LEAD AMERICO WALKER Start: 10-22-2023 ECG 12-LEAD AMERICO WALKER Start: 10-14-2023 FOLLOW UP IN CARDIOLOGY AMERICO RABAGO Start: 10-07-2023 Ecg routine ecg w/le ast 12 lds w/i&r Americo Rabago MD Work Phone: Start: 10-07-2023 ECG 12-LEAD AMERICO WALKER Start: 09-03-2022 Duplex scan of lower limb veins MD Julia Mcdaniels Work Phone: Start: 08-05-2022 Arthroplasty of knee Da vinya Pocos Start: 10-08-2016 History of operative procedure on knee S/P right knee yen tibial osteotomy and arthroscopic partial medial meniscectomy Chair Finney Work Phone: Arthroscopy of knee Julia Mcdaniels Work Phone: Comment on above: left; Cardioversion Ruben CHASE Excision of lipoma Julia Mcdaniels Work Phone: Excision of lipoma David Cao Osteotomy of tibia Anupam Poc os Radiofrequency ablat ion of medial branch of lumbar nerve using fluoroscopic guidance Staci Kevin Repair of meniscus Julia Mcdaniels Work Phone: Repair of meniscus David Cao Screening for malign ant neoplasm of prostate Julia Arslan Other Tear of meniscus of knee (disorder) Anupam Quesada Plan of Treatment Date Care Activity Detail Author Start: 04-09-2031 DTaP,Tdap and Td Vaccines (2 - Tdap) DTaP,Tdap and Td Vaccines (2 - Tdap) [facility] Start: 04-09-2031 DTaP/Tdap/Td Vaccine s (2 - Tdap) DTaP/Tdap/Td Vaccines (2 - Tdap) [facility] Start: 04-09-2031 Urine microalbumin profile [facility] Start: 03-22-2027 Diabetes Screening Diabetes Screenin [facility] Start: 2026 Diabetes Screening Diabetes Screenin [facility] Start: 08-26-2026 Diabetes Screening Diabetes Screenin [facility] Start: 04-22-2026 DIABETES SCREEN DIABETES SCREEN [facility] Start: 04-22-2026 [facility] Start: 08-27-2025 DIABETES SCREEN DIABETES SCREEN [facility] Start: 06-12-2024 Influenza vaccination [facility] Start: 03-22-2024 End: 03-22-2024 Follow-up encounter Hematology/Oncology Comment on above: 2 month follow up po ssible Phlebotomy Start: 03-22-2024 End: 03-22-2024 Patient encounter procedure 03/22/2024 1:15 PM EDT Office Visit [facility] [address] [place] [address] [place] [address] 2 month follow up possible Phlebotomy [facility] Comment on above: 2 month follow up po ssible Phlebotomy Start: 02-28-2024 End: 05-29-2024 CBC W Auto Differential panel - Blood CBC + DIFF Lab Routine Polycythemia, secondary Low testosterone in male Expected: 02/28/2024 (Approximate), Expires: 05/29/2024 [facility] Work Phone: Comment on above: Expected: 02/28/2024 (Approximate), Expires: 05/29/2024 Start: 02-28-2024 End: 05-29-2024 Comprehensive metabolic 2000 panel - Serum or Plasma COMP METABOLIC PANEL Lab Routine Polycythemia, secondary Low testosterone in male Expected: 02/28/2024 (Approximate), Expires: 05/29/2024 [facility] Work Phone: Comment on above: Expected: 02/28/2024 (Approximate), Expires: 05/29/2024 Start: 01-21-2024 End: 01-21-2024 Patient encounter procedure 01/21/2024 8:40 AM EDT Office Visit [facility] [address] [place] [address] Sukumar Brewer MD [address], [address] [address] [facility] Start: 01-12-2024 Patient referral [facility] Work Phone: Start: 12-19-2023 Adult BMI Screening Adult BMI Screen ing [facility] Start: 12-19-2023 Tobacco Screening Tobacco Screening [facility] Start: 11-04-2023 [facility] Start: 10-28-2023 End: 10-07-2025 Cardioversion External Cardioversion External Cardiac Services Routine Persistent atrial fibrillation (CMS/HCC) Expected: 10/28/2023 (Approximate), Expires: 10/07/2025 [facility] Service Area Work Phone: Comment on above: Expected: 10/28/2023 (Approximate), Expires: 10/07/2025 Start: 2023 Abdominal aortic aneurysm screening Abdominal Aortic Aneurysm (AAA) Screening [facility] Start: 2023 Advance Directive Discussion Advance Directive Discussion [facility] Start: 2023 Fall Risk Screening Fall Risk Screen ing [facility] Start: 2023 Pneumococcal Vaccine : 65+ (1 of 1 - PCV) Pneumococcal Vaccine: 65+ (1 of 1 - PCV) [facility] Start: 2023 Pneumococcal Vaccine : 65+ Years (1 - PCV) Pneumococcal Vaccine: 65+ Years (1 - PCV) [facility] Start: 10-26-2023 End: 01-25-2024 CBC W Auto Differential panel - Blood CBC + DIFF Lab Routine Polycythemia, secondary Expected: 10/26/2023 (Approximate), Expires: 01/25/2024 [facility] Work Phone: Comment on above: Expected: 10/26/2023 (Approximate), Expires: 01/25/2024 Start: 10-26-2023 End: 08-26-2024 Ferritin [Mass/volume] in Serum or Plasma FERRITIN BLD Lab Routine Polycythemia, secondary Expected: 10/26/2023 (Approximate), Expires: 08/26/2024 [facility] Work Phone: Comment on above: Expected: 10/26/2023 (Approximate), Expires: 08/26/2024 Start: 10-26-2023 End: 08-26-2024 Iron and Iron binding capacity panel - Serum or Plasma IRON + TIBC Lab Routine Polycythemia, secondary Expected: 10/26/2023 (Approximate), Expires: 08/26/2024 [facility] Work Phone: Comment on above: Expected: 10/26/2023 (Approximate), Expires: 08/26/2024 Start: 10-14-2023 End: 10-14-2023 Clinical Support 10/14/2023 2:30 PM EST Clinical Support [facility] [address] [id number] [facility] Start: 10-12-2023 Behavioral Health Screening Behavioral Health Screening [facility] Start: 10-12-2023 Depression Assessment Depression Ass essment [facility] Start: 08-23-2023 End: 10-23-2023 CBC W Auto Differential panel - Blood CBC + DIFF Lab Routine Polycythemia, secondary Expected: 08/23/2023 (Approximate), Expires: 10/23/2023 [facility] Work Phone: Comment on above: Expected: 08/23/2023 (Approximate), Expires: 10/23/2023 Start: 08-23-2023 End: 10-23-2023 Comprehensive metabolic 2000 panel - Serum or Plasma COMP METABOLIC PANEL Lab Routine Polycythemia, secondary Expected: 08/23/2023 (Approximate), Expires: 10/23/2023 [facility] Work Phone: Comment on above: Expected: 08/23/2023 (Approximate), Expires: 10/23/2023 Start: 08-23-2023 End: 04-22-2024 Ferritin [Mass/volume] in Serum or Plasma FERRITIN BLD Lab Routine Polycythemia, secondary Expected: 08/23/2023 (Approximate), Expires: 04/22/2024 [facility] Work Phone: Comment on above: Expected: 08/23/2023 (Approximate), Expires: 04/22/2024 Start: 08-23-2023 End: 04-22-2024 Iron and Iron binding capacity panel - Serum or Plasma IRON + TIBC Lab Routine Polycythemia, secondary Expected: 08/23/2023 (Approximate), Expires: 04/22/2024 [facility] Work Phone: Comment on above: Expected: 08/23/2023 (Approximate), Expires: 04/22/2024 Start: 06-12-2023 Covid-19 Vaccine ( season) Covid-19 Vaccine () [facility] Start: 06-12-2023 Influenza vaccination [facility] Start: 04-18-2023 End: 06-18-2023 CBC W Auto Differential panel - Blood CBC + DIFF Lab Routine Polycythemia, secondary Expected: 04/18/2023 (Approximate), Expires: 06/18/2023 [facility] Work Phone: Comment on above: Expected: 04/18/2023 (Approximate), Expires: 06/18/2023 Start: 04-18-2023 End: 06-18-2023 Comprehensive metabolic 2000 panel - Serum or Plasma COMP METABOLIC PANEL Lab Routine Polycythemia, secondary Expected: 04/18/2023 (Approximate), Expires: 06/18/2023 [facility] Work Phone: Comment on above: Expected: 04/18/2023 (Approximate), Expires: 06/18/2023 Start: 12-30-2022 FUV, Provider: Americo Rabago, Status: Pen, Time: 11:30 AM FUV, Provider: Americo Rabago, Status: Pen, Time: 11:30 AM [facility] 250 DO Work Phone: Start: 12-25-2022 End: 02-24-2023 CBC W Auto Differential panel - Blood CBC + DIFF Lab Routine Polycythemia, secondary Expected: 12/25/2022 (Approximate), Expires: 02/24/2023 [facility] Work Phone: Comment on above: Expected: 12/25/2022 (Approximate), Expires: 02/24/2023 Start: 12-25-2022 End: 08-27-2023 Ferritin [Mass/volume] in Serum or Plasma FERRITIN BLD Lab Routine Polycythemia, secondary Expected: 12/25/2022 (Approximate), Expires: 08/27/2023 [facility] Work Phone: Comment on above: Expected: 12/25/2022 (Approximate), Expires: 08/27/2023 Start: 12-25-2022 End: 08-27-2023 Iron and Iron binding capacity panel - Serum or Plasma IRON + TIBC Lab Routine Polycythemia, secondary Expected: 12/25/2022 (Approximate), Expires: 08/27/2023 [facility] Work Phone: Comment on above: Expected: 12/25/2022 (Approximate), Expires: 08/27/2023 Start: 11-10-2022 EVENT KORTNEY, Provider : FAHAD SONI [employer]ING [employer] SUPERVISOR 1,[id number], Status: Pen, Time: 9:00 AM EVENT KORTNEY, Provider: FAHAD SONI [employer] SUPERVISOR 1,[id number], Status: Pen, Time: 9:00 AM [facility] 250 DO Work Phone: Start: 10-23-2022 Radionuclide myocard ial perfusion stress study NM valentín perf SPECT rest & str [facility] Start: 10-23-2022 SPECT Heart perfusio n at rest and W stress and W radionuclide IV [facility] Start: 10-23-2022 [facility] Start: 10-21-2022 DIABETES SCREEN DIABETES SCREEN [facility] Start: 10-12-2022 DEPRESSION ASSESSMENT DEPRESSION ASS ESSMENT [facility] Start: 09-03-2022 Duplex scan of lower limb veins US venous duplex LE RT [facility] Start: 07-30-2022 End: 09-29-2022 CBC W Auto Differential panel - Blood CBC + DIFF Lab Routine Polycythemia, secondary Expected: 07/30/2022, Expires: 09/29/2022 [facility] Work Phone: Comment on above: Expected: 07/30/2022 , Expires: 09/29/2022 Start: 07-30-2022 End: 09-29-2022 Comprehensive metabolic 2000 panel - Serum or Plasma COMP METABOLIC PANEL Lab Routine Polycythemia, secondary Expected: 07/30/2022, Expires: 09/29/2022 [facility] Work Phone: Comment on above: Expected: 07/30/2022 , Expires: 09/29/2022 Start: 06-12-2022 Influenza vaccination INFLUENZA (#1) [facility] Start: 10-19-2021 COVID-19 VACCINE (3 - Booster for Pfizer series) COVID-19 VACCINE (3 - Booster for Pfizer series) [facility] Start: 10-19-2021 COVID-19 VACCINE (3 - Pfizer series) COVID-19 VACCINE (3 - Pfizer series) [facility] Start: 10-12-2021 DEPRESSION ASSESSMENT DEPRESSION ASS ESSMENT [facility] Start: 2018 RSV Vaccine (1 - 1-d ose 60+ series) RSV Vaccine (1 - 1-dose 60+ series) [facility] Start: 2013 PROSTATE CANCER SCREENING DISCUSSION PROSTATE CANCER SCREENING DISCUSSION [facility] Start: 2013 Prostate specific antigen measurement Prostate Cancer Screening Discussion [facility] Start: 2008 Administration of varicella zoster vaccine Zoster (Shingles) Vaccine (1 of 2) [facility] Start: 2008 SHINGRIX VACCINE (1 of 2) SHINGRIX VACCINE (1 of 2) [facility] Start: 2008 Zoster Vaccines (1 of 2) Zoste r Vaccines (1 of 2) [facility] Start: 2003 COLOGUARD (FIT-DNA) COLOGUARD (FIT-D NA) [facility] Start: 2003 Colonoscopy COLONOSCOPY [facility] Start: 2003 COLORECTAL CANCER SCREENING COLORECTAL CANCER SCREENING [facility] Start: [address] COLONOGRAPHY [facility] Start: 2003 FECAL OCCULT BLOOD FECAL OCCULT BLOO D [facility] Start: 2003 Screening for malign ant neoplasm of colon [facility] Start: 2003 SIGMOIDOSCOPY SIGMOIDOSCOPY [facility] Start: 1993 Lipid 1996 panel - S giovanna or Plasma Lipid Screening [facility] Start: 1993 Lipid panel Lipid Screening [facility] Start: 1993 LIPID SCREEN LIPID SCREEN [facility] Start: 1976 Diabetes mellitus screening Diabetes Screening [facility] Start: 1976 HEPATITIS C SCREENING HEPATITIS C [facility] Start: 1976 Hepatitis C screening Hepatitis C [facility] Start: 1976 HIV SCREENING HIV SCREENING [facility] Start: 1976 HIV screening HIV Screening [facility] Start: 1970 [facility] Start: 1959 MMR Vaccines (1 of 1 - Standard series) MMR Vaccines (1 of 1 - Standard series) [facility] Start: 1958 Abdominal aortic aneurysm screening Abdominal Aortic Aneurysm Screening [facility] Start: 1958 HIV screening HIV Screening [facility] Start: 1958 Lipid panel Lipid Panel [facility] Start: 1958 Screening for malign ant neoplasm of colon [facility] Start: 1958 Yearly Adult Physical Yearly Adult P hysical [facility] CT Sinuses WO contrast [facility] ECG 12 Lead ECG 12 Lead ECG Routine Persistent atrial fibrillation (CMS/HCC) 10/22/2023 9:01 AM EST [facility] Service Area Work Phone: ECG 12 Lead ECG 12 Lead ECG Routine Persistent atrial fibrillation (CMS/HCC) 10/26/2023 12:51 PM EST [facility] Area Work Phone: Patient referral [facility] Work Phone: XR Chest [address] [facility] Immunizations Immunization Date Immunization Notes Care Provider Lina duarte 08-24-2021 Pfizer-BioNTech COVI D-19 Vacc 30 MCG/0.3ML Intramuscular Suspension Julia E Mcdaniels Work Phone: [facility] Comment on above: Result Comment: 2023: [id number] 08-03-2021 Pfizer-BioNTech COVI D-19 Vacc 30 MCG/0.3ML Intramuscular Suspension Julia E Mcdaniels Work Phone: [facility] Comment on above: Result Comment: 2023: [id number] 04-09-2021 diphtheria, tetanus toxoids and pertussis vaccine Chair Sharmin Work Phone: [facility] Payers Date Payer Category Payer Medicare [id number] 2023 Medicare [id number] 2019 Unknown [id number] 2019 Unknown [id number] 1959 Self-pay [id number] 1959 Unknown [id number] 1958 Unknown [id number] 2.16.84 0.1.723870.3.579.2.593 1958 Unknown [id number] 2.16.84 0.1.940055.3.579.2.593 1958 Unknown [id number] 2.16.84 0.1.120373.3.579.2.593 1958 Unknown [id number] 2.16.84 0.1.285241.3.579.2.593 1958 Unknown [id number] 2.16.84 0.1.516488.3.579.2.593 1958 Unknown [id number] 2.16.84 0.1.324626.3.579.2.593 1958 Unknown [id number] 2.16.84 0.1.114735.3.579.2.593 1958 Unknown [id number] 2.16.84 0.1.490341.3.579.2.593 1958 Unknown [id number] 2.16. 840.1.731154.3.579.2.356 1958 Unknown [id number] 2.16. 840.1.048668.3.579.2.356 1958 Unknown [id number] 2.16. 840.1.988865.3.579.2.356 1958 Unknown [id number] 2.16. 840.1.408009.3.579.2.356 1958 Unknown [id number] 2.16. 840.1.063066.3.579.2.356 1958 Unknown [id number] 2.16. 840.1.117378.3.579.2.356 1958 Unknown [id number] 2.16. 840.1.512422.3.579.2.356 1958 Unknown [id number] 2.16. 840.1.032831.3.579.2.196 1958 Unknown [id number] 2.16. 840.1.428693.3.579.2.196 1958 Unknown [id number] 2.16.8 40.1.083793.3.579.2.1286 1958 Unknown [id number] 2.16.84 0.1.190072.3.579.2.1259 1958 Unknown [id number] 2.16.84 0.1.205255.3.579.2.1259 1958 Unknown [id number] 2.16.84 0.1.094145.3.579.2.1259 1958 Unknown [id number] 2.16.840 .1.761889.3.579.2.1259 1958 Unknown [id number] 2.16.8 40.1.469594.3.579.2.1244 1958 Unknown [id number] 2.16.8 40.1.860027.3.579.2.1244 1958 Unknown [id number] 2.16.8 40.1.386967.3.579.2.1244 1958 Unknown [id number] 2.16.8 40.1.323854.3.579.2.1244 1958 Unknown [id number] 2.16.8 40.1.073440.3.579.2.727 1958 Unknown [id number] 2.16.8 40.1.182946.3.579.2.727 1958 Unknown [id number] 2.16.8 40.1.070466.3.579.2.727 1958 Unknown [id number] 2.16.8 40.1.485696.3.579.2.727 1958 Unknown [id number] 2.16.8 40.1.778575.3.579.2.727 1958 Unknown [id number] 2.16.8 40.1.047991.3.579.2.727 1958 Unknown [id number] 2.16.8 40.1.393470.3.579.2.727 1958 Unknown [id number] 2.16.8 40.1.069042.3.579.2.727 1958 Unknown [id number] 2.16.8 40.1.419455.3.579.2.727 1958 Unknown [id number] 2.16.8 40.1.440699.3.579.2.727 1958 Unknown [id number] 2.16.8 40.1.373081.3.579.2.727 1958 Unknown [id number] 2.16.8 40.1.096270.3.579.2.727 Unknown Ligia WILLOUGHBY/HELIO [id number] Unknown [id number] 2.16.8 40.1.325039.3.579.2.531 Social History Date Type Detail Facility Tobacco smoking status [facility] Start: 08-15-2019 End: 04-22-2023 Sex Assigned At Male [facility] Start: 07-18-2019 End: 08-27-2022 Tobacco smoking status NHIS Ex-smoker [facility] End: 10-12-1996 History of tobacco use Current smoker [facility] Start: 07-18-2019 End: 08-27-2022 Tobacco use and exposure Former smokeless tobacco user [facility] End: 09-12-2016 History of tobacco use Chews Tobacco [facility] Start: 07-30-2022 End: 03-22-2024 Alcohol intake Current drinker of alcohol (finding) [facility] Start: 09-12-2016 End: 08-27-2022 Tobacco Comment QUIT 15 YEARS AGO [facility] Start: 09-19-2016 Alcohol Comment rare Leah [facility] Start: 1960 Sex Assigned At Male [facility] Start: 07-20-2022 End: 10-26-2023 Exposure to SARS-CoV-2 (event) Not sure [facility] History of tobacco use Passive smoker [facility] Start: 08-15-2019 End: 04-22-2023 Caffeine use Caffeine use [facility] Adult Depression Screening Assessment 0 [facility] Start: 06-01-2021 Gender identity Identifies as male gender (finding) [facility] End: 10-12-1996 History of tobacco use Cigarette Smoker [facility] Work Phone: Start: 12-18-2022 End: 10-07-2023 Tobacco use and exposure Smokeless tobacco non-user [facility] Work Phone: Start: 1960 Sex Assigned At Not on file [facility] Work Phone: Start: 12-18-2022 Tobacco smoking stat us [facility] Never smoked tobacco [facility] Start: 01-14-2024 Alcohol intake Ex-drinker (finding) [facility] Medical Equipment Procedure Code Equipment Code Equipment Origin al Text Equipment Identifier Dates Graft Wedge Osiel ical [id number] Bone 2 Piece Allograft Freeze Dried High - [id number] Start: 10-08-2016 Comment on above: Description: HTO WED GE Rai-Pz-P-Kind Implant - [id number] Start: 10-08-2016 Comment on above: Description: Cancell ous Screw, Titanium KNEE TOTAL ROBOT ARTHROPLASTY Anupam Quesada DO 08/05/22 Non Biological Knee R [id number] FDA Start: 08-05-2022 Plate, Tibial Ap Sloped Osteotomy [id number] Start: 10-08-2016 Comment on above: Description: PLATE, TIB AP SLOPED Pih-Cw-M-Kind Implant - [id number] Start: 10-08-2016 Comment on above: Description: Screw, Cortical Wwx-He-J-Kind Implant - [id number] Start: 10-08-2016 Comment on above: Description: CORTICA L SCREW Oyb-Jq-[id number]-Kind Implant - [id number] Start: 10-08-2016 Comment on above: Description: Cancell ous Screw, Titanium Functional Status Date Assessment Result Facility 03-29-2024 Functional Status N/A [facility] 02-12-2024 Functional Status N/A [facility] 01-29-2024 Functional Status N/A [facility] 01-28-2024 Functional Status N/A [facility] [place] 01-27-2024 Functional Status N/A [facility] 12-14-2023 Functional Status N/A [facility] 07-18-2022 Functional Status N/A [facility] Clinical Notes 11-12-2015 to 03-29-2024 Anselmo Mcpherson MD - 03/22/2024 1:38 PM EDT Note Date & Type Note Facility 03-29-2024 Note [id number] [facility] 03-29-2024 Note Diagnosis: M47.816, bilateral lumbar spondyloarthropathy Procedure: Bilateral L3 and L4 medial branch and L5 posterior ramus radiofrequency ablation to target the facet joints of L4/5 and L5/S1 Anesthesia: Local Complications: None After informed consent was obtained, the patient was brought to the procedure room and placed in the prone position. The back area is prepped and draped in usual sterile fashion. The patient was placed on monitors. Using fluoroscopic guidance skin and subcutaneous tissue overlying needle trajectories to the target sites were anesthetized with 2% lidocaine. 20-gauge radiofrequency needles were advanced under fluoroscopic guidance to the appropriate anatomic landmarks. Needle tip position was confirmed on both sides in both the AP and lateral views. Next, all levels on the right were stimulated at 2Hz for motor stimulation at 2.0V with no lower extremity motor contractions. Next 1.0mL of 2.0% lidocaine was injected through each needle tip. Thereafter, radiofrequency lesioning was carried out at 80 degrees for 80 seconds twice. Next, all levels on the left were stimulated at 2Hz for motor stimulation at 2.0V with no lower extremity motor contractions. Next 1.0mL of 2.0% lidocaine was injected through each needle tip. Thereafter, radiofrequency lesioning was carried out at 80 degrees for 80 seconds twice. The needles were removed. The patient was then transferred to the recovery room in stable condition. Postprocedure lower extremity strength 5/5 bilaterally in hip flexors, quads, hamstrings, plantarflexion/dorsiflexion/FHL/EHL . Follow-up: Discharge instructions provided. The patient agrees to continue currently prescribed/recommended therapies. [facility] Comment on above: Result Comment: Elec tronically Signed By: David Cao DO.gila\Date and Time Signed: 03/29/24 10:36 EDT 03-22-2024 Note HNO ID: [id number] Author: ANSELMO MCPHERSON MD Service: ? Author Type: Physician Type: Progress Notes Filed: 03/22/2024 13:48 Note Text: PATIENT NAME: Eben Arenas CLINIC NO.: [id number] ATTENDING PHYSICIAN: Anselmo Mcpherson MD DATE OF SERVICE: March 22, 2024 Some of the elements of this note have been copied from my previous progress note dated 2023. All the information has been reviewed carefully. Dear Dr. APONTE here is an update on a follow up visit on male Eben Arenas at the clinic March 22, 2024 Diagnosis: 1. 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 HPI: Eben Arenas is a 63 year old year old male here for follow up. Doing well and has been off the testosterone and planning on restarting at half the dose PAST MEDICAL HISTORY Diagnosis Date Former smoker HLD (hyperlipidemia) CHITIMACHA (hard of hearing) HTN (hypertension) Long-term use of aspirin therapy OA (osteoarthritis) of knee Polycythemia S/P right knee arthroscopy TIA (transient ischemic attack) Social History Tobacco Use Smoking status: Former Passive exposure: Past Smokeless tobacco: Former Types: Chew Quit date: 09/12/2016 Tobacco comments: QUIT 15 YEARS AGO Vaping Use Vaping Use: Never used Substance Use Topics Alcohol use: Yes Comment: rare Drug use: No FAMILY HISTORY Problem Relation Age of Onset Lipids Mother Hypertension Mother Hypertension Father Lipids Father Past medical, social and family history reviewed without any changes. REVIEW OF SYSTEMS GENERAL: No weight loss, malaise or fevers. No night sweats. HEENT: Negative for headaches, No changes in hearing or vision, no nose bleeds or other nasal problems. RESPIRATORY: Negative for cough, wheezing and shortness of breath CARDIOVASCULAR: Negative for chest pain, leg swelling and palpitations GI: Negative for abdominal discomfort, blood in stools or black stools and change in bowel habits : Negative for dysuria, frequency and incontinence MUSCULOSKELETAL: Negative for joint pain or swelling, back pain, and muscle pain. SKIN: Negative for lesions, rash, and itching. HEMATOLOGY/LYMPHOLOGY Negative for prolonged bleeding, bruising easily, and swollen nodes. NEURO: Negative for numbness or tingling of hands/feet. No weakness. PHYSICAL EXAMINATION: BP 123/70 Pulse 78 Temp (Src) 97.1 (Temporal) Resp 18 Ht 5' 9.764 (1.77m) Wt 286 lb 9.6 oz (130.0kg) SpO2 94% BMI 41.40 kg/(m2). Wt 130.2 kg (287 lb) BMI 41.46 kg/m2 Last 3 Encounter Wt Readings: Date: Wt: 08/15/2019 130.2 kg (287 lb) 07/18/2019 127.4 kg (280 lb 12.8 oz) 09/19/2016 117.9 kg (260 lb) General appearance:ECOG PERFORMANCE STATUS: 0- Fully active, able to carry on all pre-disease performance w/o restriction. Patient in NAD. Skin: Skin color, texture, turgor normal. No rashes or lesions. Eyes: Anicteric sclera. Pupils are equally round and reactive to light. Extraocular movements are intact. Lymph Nodes: No cervical, supraclavicular, axillary or inguinal adenopathy. Oropharynx: Lips, mucosa, and tongue normal. Back: No pain to percussion. Negative SLR test Lungs clear to auscultation, No wheezing or rhonchi Heart: RRR without murmur, gallop, or rubs. Abdomen soft, non-tender. No masses, organomegaly Extremities: No deformities. No edema Neuro: Gait and speech normal. Reflexes normal and symmetric. Muscular strength intact. Sensation grossly intact. Rectal: Deferred : Deferred LABS: Glucose (mg/dL) Date Value 2023 135 10/21/2019 Requisitioning entry error Potassium (mmol/L) Date Value 2023 3.8 10/21/2019 Requisitioning entry error Sodium (mmol/L) Date Value 2023 141 10/21/2019 Requisitioning entry error Chloride (mmol/L) Date Value 2023 108 10/21/2019 Requisitioning entry error CO2 (mmol/L) Date Value 2023 23 10/21/2019 Requisitioning entry error Creatinine (mg/dL) Date Value 2023 1.01 10/21/2019 Requisitioning entry error BUN (mg/dL) Date Value 2023 12 10/21/2019 Requisitioning entry error Anion Gap (mmol/L) Date Value 2023 10 10/21/2019 Requisitioning entry error Calcium (mg/dL) Date Value 10/21/2019 Requisitioning entry error Calcium, Total (mg/dL) Date Value 2023 9.0 Protein, Total (g/dL) Date Value 2023 6.4 10/21/2019 Requisitioning entry error Albumin (g/dL) Date Value 2023 3.9 10/21/2019 Requisitioning entry error Bilirubin, Total (mg/dL) Date Value 2023 0.8 10/21/2019 Requisitioning entry error Alkaline Phosphatase (U/L) Date Value 2023 90 10/21/2019 Requisitioning entry error AST (U/L) Date Value 2023 28 10/21/2019 Requisitioning entry error ALT (U/L) Date Value 2023 40 (more content not included)... [facility] 03-22-2024 History of Present illness Narrative PATIENT NAME: Eben Vicky [facility] NO.: [id number] ATTENDING PHYSICIAN: Anselmo Mcpherson MD DATE OF SERVICE: March 22, 2024 Some of the elements of this note have been copied from my previous progress note dated 2023. All the information has been reviewed carefully. Dear Dr. APONTE here is an update on a follow up visit on male Eben Arenas at the clinic March 22, 2024 Diagnosis: 1. Secondary polycythemia, AYM 2 mutational studies negative. 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 HPI: Eben Arenas is a 63 year old year old male here for follow up. Doing well and has been off the testosterone and planning on restarting at half the dose PAST MEDICAL HISTORY Diagnosis Date Former smoker HLD (hyperlipidemia) CHITIMACHA (hard of hearing) HTN (hypertension) Long-term use of aspirin therapy OA (osteoarthritis) of knee Polycythemia S/P right knee arthroscopy TIA (transient ischemic attack) Social History Tobacco Use Smoking status: Former Passive exposure: Past Smokeless tobacco: Former Types: Chew Quit date: 09/12/2016 Tobacco comments: QUIT 15 YEARS AGO Vaping Use Vaping Use: Never used Substance Use Topics Alcohol use: Yes Comment: rare Drug use: No FAMILY HISTORY Problem Relation Age of Onset Lipids Mother Hypertension Mother Hypertension Father Lipids Father Past medical, social and family history reviewed without any changes. REVIEW OF SYSTEMS GENERAL: No weight loss, malaise or fevers. No night sweats. HEENT: Negative for headaches, No changes in hearing or vision, no nose bleeds or other nasal problems. RESPIRATORY: Negative for cough, wheezing and shortness of breath CARDIOVASCULAR: Negative for chest pain, leg swelling and palpitations GI: Negative for abdominal discomfort, blood in stools or black stools and change in bowel habits : Negative for dysuria, frequency and incontinence MUSCULOSKELETAL: Negative for joint pain or swelling, back pain, and muscle pain. SKIN: Negative for lesions, rash, and itching. HEMATOLOGY/LYMPHOLOGY Negative for prolonged bleeding, bruising easily, and swollen nodes. NEURO: Negative for numbness or tingling of hands/feet. No weakness. PHYSICAL EXAMINATION: BP 123/70 Pulse 78 Temp (Src) 97.1 (Temporal) Resp 18 Ht 5' 9.764 (1.77m) Wt 286 lb 9.6 oz (130.0kg) SpO2 94% BMI 41.40 kg/(m^2). Wt 130.2 kg (287 lb) BMI 41.46 kg/m2 Last 3 Encounter Wt Readings: Date: Wt: 08/15/2019 130.2 kg (287 lb) 07/18/2019 127.4 kg (280 lb 12.8 oz) 09/19/2016 117.9 kg (260 lb) General appearance:ECOG PERFORMANCE STATUS: 0- Fully active, able to carry on all pre-disease performance w/o restriction. Patient in NAD. Skin: Skin color, texture, turgor normal. No rashes or lesions. Eyes: Anicteric sclera. Pupils are equally round and reactive to light. Extraocular movements are intact. Lymph Nodes: No cervical, supraclavicular, axillary or inguinal adenopathy. Oropharynx: Lips, mucosa, and tongue normal. Back: No pain to percussion. Negative SLR test Lungs clear to auscultation, No wheezing or rhonchi Heart: RRR without murmur, gallop, or rubs. Abdomen soft, non-tender. No masses, organomegaly Extremities: No deformities. No edema Neuro: Gait and speech normal. Reflexes normal and symmetric. Muscular strength intact. Sensation grossly intact. Rectal: Deferred : Deferred LABS: Glucose (mg/dL) Date Value 2023 135 10/21/2019 Requisitioning entry error Potassium (mmol/L) Date Value 2023 3.8 10/21/2019 Requisitioning entry error Sodium (mmol/L) Date Value 2023 141 10/21/2019 Requisitioning entry error Chloride (mmol/L) Date Value 2023 108 10/21/2019 Requisitioning entry error CO2 (mmol/L) Date Value 2023 23 10/21/2019 Requisitioning entry error Creatinine (mg/dL) Date Value 2023 1.01 10/21/2019 Requisitioning entry error BUN (mg/dL) Date Value 2023 12 10/21/2019 Requisitioning entry error Anion Gap (mmol/L) Date Value 2023 10 10/21/2019 Requisitioning entry error Calcium (mg/dL) Date Value 10/21/2019 Requisitioning entry error Calcium, Total (mg/dL) Date Value 2023 9.0 Protein, Total (g/dL) Date Value 2023 6.4 10/21/2019 Requisitioning entry error Albumin (g/dL) Date Value 2023 3.9 10/21/2019 Requisitioning entry error Bilirubin, Total (mg/dL) Date Value 2023 0.8 10/21/2019 Requisitioning entry error Alkaline Phosphatase (U/L) Date Value 2023 90 10/21/2019 Requisitioning entry error AST (U/L) Date Value 2023 28 10/21/2019 Requisitioning entry error ALT (U/L) Date Value 2023 40 10/21/2019 Requisitioning entry error WBC Date Value Ref Range Status 03/22/2024 6.34 3.70 - 11.00 k/uL Final RBC Date Value Ref Range Status 03/22/2024 4.60 4.20 - 6.00 m/uL Final Hemoglobin Date Value Ref Range Status 03/22/2024 15.3 13.0 - 17.0 g/dL Final Hematocrit Date Value Ref Range Status 03/22/2024 43.4 39.0 - 51.0 % Final MCV Date Value Ref Range Status 03/22/2024 94.3 80.0 - 100.0 fL Final MCH Date Value Ref Range Status 03/22/2024 33.3 26.0 - 34.0 pg Final MCHC Date Value Ref Range Status 03/22/2024 35.3 30.5 - 36.0 g/dL Final RDW-CV Date Value Ref Range Status 03/22/2024 12.6 11.5 - 15.0 % Final Platelet Count Date Value Ref Range Status 03/22/2024 149 (L) 150 - 400 k/uL Final MPV Date Value Ref Range Status 03/22/2024 12.2 9.0 - 12.7 fL Final Abs Neut Date Value Ref Range Status 03/22/2024 3.52 1.45 - 7.50 k/uL Final Lymphocytes % Date Value Ref Range Status 03/22/2024 23.7 % Final Abs Lymph Date Value Ref Range Status 03/22/2024 1.50 1.00 - 4.00 k/uL Final Monocytes % Date Value Ref Range Status 03/22/2024 12.0 % Final Abs Kidder Date Value Ref Range Status 03/22/2024 0.76 <0.87 k/uL Final Abs Eosin Date Value Ref Range Status 03/22/2024 0.48 (H) <0.46 k/uL Final Basophils % Date Value Ref Range Status 03/22/2024 0.9 % Final Abs Baso Date Value Ref Range Status 03/22/2024 0.06 <0.11 k/uL Final PATH: Imaging: Abdominal ultrasound without any evidence of splenomegaly. Question gallbladder polyp versus stone. Assessment and Plan: Eben Arenas is a 63 year old year old male here for follow up. Secondary polycythemia, secondary to testosterone use. He will not stop testosterone understanding the potential complications. Based on previous discussion will phlebotomize if hemoglobin greater than 17.5. He does monitor his own hemoglobin at home as well. He will monitor labs and contact me with Hgb >17.5 Afib- follows cardiology Thank you for the kind referral. If there are any questions and or concerns please do not hesitate to contact me at [phone]. Anselmo Mcpherson MD Hematology/Medical Oncology [facility] CC: Julia Mcdaniels MD - (Active), In Basket (Inactive) - User (Inactive) [address] [facility] [phone] (Ph) documented in this encounter [facility] 02-12-2024 Evaluation + Plan note Extrac loreta from: Title:Pain Managment Follow up Author:Staci Ruano Date:02/12/24 Impression and Plan Patient is a 63-year-old male with a past medical history significant for chronic lower back pain and lumbar spondylosis. Patient underwent bilateral L4-5 and L5- S1 facet medial branch block. This was done on 01/27/2024. It gave him 100% relief for 4 hours. The first 1 was done on 09/07/2023 and gave him 100% relief for a day. He has done well with both medial branch blocks. He also did very well with previous ablation with over 3 years of relief. Since he has done well with both medial branch blocks we discussed pursuing bilateral L4-5 and L5-S1 facet RFA under fluoroscopy for therapeutic purposes. Procedure was discussed. Risk and benefits were discussed. Patient is agreeable. He would like to get this facilitated as soon as possible as he is supposed to be having shoulder surgery on 03/03/2024. We will submit for authorization and we will pursue RFA once authorization has been obtained. He will call the clinic sooner should he require anything from our services in the interim GIAN score: 22% [facility]04-25-2024 Hospital Discharge instructions Patient Education 02/04/2024 14:56:20 Epidermoid Cyst Removal, Care After Epidermoid Cyst Removal, Care After This sheet gives you information about how to care for yourself after your procedure. Your health care provider may also give you more specific instructions. If you have problems or questions, contact your health care provider. What can I expect after the procedure? After the procedure, it is common to have: Soreness in the area where your cyst was removed. Tightness or itchiness from the stitches (sutures) in your skin. Follow these instructions at home: Medicines Take wzff-zxo-knyvlnz and prescription medicines only as told by your health care provider. If you were prescribed an antibiotic medicine or ointment, take or apply it as told by your health care provider. Do not stop using the antibiotic even if you start to feel better. Incision care Follow instructions from your health care provider about how to take care of your incision. Make sure you: ?Wash your hands with soap and water for at least 20 seconds before you change your bandage (dressing). If soap and water are not available, use hand grain unloader machine. ?Change your dressing as told by your health care provider. ?Leave sutures, skin glue, or adhesive strips in place. These skin closures may need to stay in place for 1 2 weeks or longer. If adhesive strip edges start to loosen and curl up, you may trim the loose edges. Do not remove adhesive strips completely unless your health care provider tells you to dothat. Keep the dressing dry until your health care provider says that it can be removed. After your dressing is off, check your incision area every day for signs of infection. Check for: ?Redness, swelling, or pain. ?Fluid or blood. ?Warmth. ?Pus or a bad smell. General instructions Do not take baths, swim, or use a hot tub until your health care provider approves. Ask your healthcare provider if you may take showers. You may only be allowed to take sponge baths. Your health care provider may ask you to avoid contact sports or activities that take a lot of effort. Do not do anything that stretches or puts pressure on your incision. You can return to your normal diet. Keep all follow-up visits. This is important. Contact a health care provider if: You have a fever. You have redness, swelling, or pain in the incision area. You have fluid or blood coming from your incision. You have pus or a bad smell coming from your incision. Your incision feels warm to the touch. Your cyst grows back. Get help right away if: If the incision site suddenly increases in size and you have pain at the incision site. You may be checked for a collection of blood under the skin from the procedure (hematoma). Summary After the procedure, it is common to have soreness in the area where your cyst was removed. Take or apply mpsv-cjw-fnxrkyc and prescription medicines only as told by your health care provider. Follow instructions from your health care provider about how to take care of your incision. This information is not intended to replace advice given to you by your health care provider. Make sure you discuss any questions you have with your health care provider. Document Revised: 01/02/2021 Document Reviewed: 01/02/2021 [employer] Patient Education 2022 [employer]. Follow Up Care 01/28/2024 13:15:57 With:Ruben CHASE Address: [address] [place] [address], [address] [place], [place] [id number] Business (1) When:2 weeks [facility]04-25-2024 NotePatient: EBEN ARENAS Age: 63 years Sex: Male : 1960 Associated Diagnoses: None Author: Ruben CHASE MD Subjective no changes to H & PFOhio State University Wexner Medical CenterComment on above:Result Comment: Electronically Signed By: Ruben CHASE MD\.br\Date and Time Signed: 02/04/24 13:58 [id number] Discharge instructions Follow Up Care 01/28/2024 13:18:17 With:SALVATORE JAVIER, OLIMPIA Wilcox Address: [address] [place] [address] When: only if needed [facility] [place] 04-18-2024 NoteChief Complaint consultation for sebaceous cyst HPI Staff 63 year old male presents on consultation from Dr. Mcdaniels for sebaceous cyst. Reports two small non tender nodule to mid upper back. Both have been present for many months. Both have slightly increased in size. Neither have been sore or tender. Neither have ever spontaneously drained or been infected. No ATB use for this. History of Present Illness 63 yo male with h/o htn, atrial fibrillation, on Eliquis, hypercholesterolemia, DMII, PVD, lumbar spondylosis with chronic back pain, referred for cysts on back, patient reports long h/o 2 cysts on back, getting larger, no pain or infection, squeezes upper one at times and it drains; no asa or NSAID use; no tobacco use. Review of Systems PHQ Score Initial Depression Screen Score: 0 SCORE ROS - Provider Constitutional: no fever, no sweats, no weight loss. Eyes: no glasses, no blurred vision, no visual loss. ENMT: no dentures, no hoarseness, no swallowing difficulties, no hearing loss, no ear infection(s),no nose bleeds. Cardiovascular: normal blood pressure, no chest pain, regular heartbeat, no heart murmur. Respiratory: no shortness of breath, no cough, no asthma, no wheezing. Gastrointestinal: no nausea, no vomiting, no diarrhea, no constipation, no blood in stool, no change in bowel habits, no abdominal pain, no hepatitis. Genitourinary: no kidney stones, no urine infection, no dysuria. Musculoskeletal: no pain, no weakness. Skin: no changing moles, no rash, no skin lumps. Neurologic: no seizures, no epilepsy, no headache. Psychiatric: no emotional or psychiatric problem. Heme/Lymph: no bleeding problems, no anemia, no blood clots, no transfusions. Allergy/Immunologic: no swollen lymph nodes/glands, no IV drug abuse. Other: Additional ROS info: Except as noted in the above Review of Systems and in the History of Present Illness, all other systems have been reviewed and are negative or noncontributory. Physical Exam Vitals & Measurements HR: 68(Peripheral) RR: 16 BP: 142/81 HT: 70 in HT: 177 cm WT: 127.1 kg WT: 279.62 lb BMI: 40.57 HEENT: normal conjunctiva, sclera clear, no scleral icterus, EOM intact, PERRLA, oral mucosa moist without lesions. Neck: trachea midline, no mass, symmetric, no thyromegaly or nodules, no adenopathy Musculoskeletal: normal gait, digits and nails without infection, nodes, cyanosis, clubbing. Skin: no rashes, no lesions, no ulcers, upper midline of back with 1 cm epidermal cysts x2, no skinchanges, nontender, no open areas or drainage. Psychiatric/Neuro: oriented to time, place, person, judgement normal, affect appropriate for age, insight intact, no focal deficits. Tests: review of old records completed , Discussed surgical options, risks, and possible complications with patient. Assessment/Plan 1. Epidermal cyst (L72.0: Epidermal cyst) times two; plan excisional biopsy under local anesthesia for definitive diagnosis and treatment; informed consent obtained. hold Eliquis 2 days prior to procedure. Follow-up No qualifying data available Problem List/Past Medical History Ongoing Atrial fibrillation Bilateral stenosis of carotid arteries BMI 40.0-44.9, adult Epidermal cyst Erectile dysfunction History of transient ischemic attack HTN (hypertension) Hypercholesterolemia Intermittent claudication Lumbar spondylosis Morbid obesity Peripheral vascular disease Platelet disorder Seasonal allergic rhinitis Secondary polycythemia Type 2 diabetes mellitus Historical No qualifying data Procedure/Surgical History Arthroplasty of knee (08/05/2022), Cardioversion, Excision of lipoma, Radiofrequency ablation of medial branch of lumbar nerve using fluoroscopic guidance, Repair of meniscus, Tibial osteotomy. Medications baclofen 10 mg Tab, 10 mg= 1 tab(s), Oral, Daily, PRN Eliquis 5 mg oral tablet, 5 mg= 1 tab(s), Oral, BID hydrochlorothiazide-lisinopril 12.5 mg-20 mg Tab, 1 tab(s), Oral, Daily multivitamin with minerals niacin 500 mg ER Tab, 500 mg= 1 tab(s), Oral, Daily sotalol 80 mg Tab, 40 mg= 0.5 tab(s), Oral, BID Allergies Ativan (Dizziness) LaMICtal (Agitation) Vytorin (Hives) Social History Alcohol Current, Liquor, Daily, 07/18/2022 Substance Abuse - Denies Substance Abuse, 07/18/2022 Tobacco Former smoker, quit more than 30 days ago Tobacco Use:. Former smokeless tobacco user, quit more than 30 days ago Smokeless Tobacco Use:. Oral, 1.5 per day. Started age 16.0 Years. Stopped age 38 Years., 01/28/2024 Family History Alzheimer's disease: Mother. Bypass: Mother. COPD: Father.Negative: Mother. Immunizations Vaccine Date Status Comments SARS-CoV-2 (COVID-19) mRNA BNT-162b2 vax 08/24/2021 Recorded 2024-01-15: [id number] SARS-CoV-2 (COVID-19) mRNA BNT-162b2 vax 08/03/2021 Recorded 2024-01-15: [id number] [facility]Result Comment: Electronically Signed By: Ruben CHASE MD\Date and Time Signed: 01/28/24 13:14 EDT 01-27-2024 [id number] [facility]04[facility]17-[facility] NoteDiagnosis: m47.816, lumbar spondyloarthropathy Procedure: Bilateral diagnostic lumbar medial branch blocks under fluoroscopic guidance, targeting the L3 and L4 medial branches and posterior ramus of L5 that cover the L4/5 and L5/S1 facet joints Anesthesia: Local Complications: none After informed consent was obtained, the patient was brought to the procedure room and placed in the prone position. The back area is prepped and draped in usual sterile fashion. Using fluoroscopic guidance skin and subcutaneous tissue overlying needle trajectories to the target sites were anesthetized with 2% lidocaine. 22-gauge needles were advanced under fluoroscopic guidance to the appropriate anatomic landmarks. Needle tip position was confirmed using fluoroscopy in at least 2 views. Injection of small amount of Omnipaque contrast each needle tip revealed appropriate spread without vascular take. Subsequently, 0.5 mL of 0.5% bupivacaine was injected at each needle tip. The needles wereremoved. The patient was then transferred to the recovery room in stable condition. Follow-up: Should the patient have pain relief, the patient may be a candidate for radiofrequency lesioning. The patient agrees to continue currently prescribed/recommended therapies.[facility] HospitalComment on above: Result Comment: Electronically Signed By: David Cao DO\.br\Date and Time Signed: 01/27/24 14:51 [id number] Evaluation + Plan noteExtracted from: Title:Bilateral L3-5 lumbar medial branch block #2 Author:David Cao DO Date:01/27/24 Diagnosis: m47.816, lumbar s pondyloarthropathy Procedure: Bilateral diagnostic lumbar medial branch blocks under fluoroscopic guidance, targeting the L3 and L4 medial branches and posterior ramus of L5 that cover the L4/5 and L5/S1 facet joints Anesthesia: Local Complications: none After informed consent was obtained, the patient was brought to the procedure room and placed in the prone position. The back area is prepped and draped in usual sterile fashion. Using fluoroscopic guidance skin and subcutaneous tissue overlying needle trajectories to the target sites were anesthetized with 2% lidocaine. 22- gauge needles were advanced under fluoroscopic guidance to the appropriate anatomic landmarks. Needle tip position was confirmed using fluoroscopy in at least 2 views. Injection of small amount of Omnipaque contrast each needle tip revealed appropriate spread without vascular take. Subsequently, 0.5 mL of 0.5% bupivacaine was injected at each needle tip. The needles were removed. The patient was then transferred to the recovery room in stable condition. Follow-up: Should the patient have pain relief, the patient may be a candidate for radiofrequency lesioning. The patient agrees to continue currently prescribed/recommended therapies. Future Appointments Appointment Date:01/28/2024 01:00:00 PM Scheduled Provider:Ruben CHASE MD Location:[facility] Appointment Type:[facility] 30 Appointment Date:02/12/2024 02:15:00 PM Scheduled Provider:Staci Kevin PA-C Location:[facility] Appointment Type:Pain Management - Follow Up (FT) [facility]04-05-2024 Evaluation + Plan noteExtracted from: Title:Bilateral lumbar radio frequency for L4/5 and L5/S1 facets Author:David Cao DO Date:03/29/24 Diagnosis: M47.816, vandana jurado lumbar spondyloarthropathy Procedure: Bilateral L3 and L4 medial branch and L5 posterior ramus radiofrequency ablation to target the facet joints of L4/5 and L5/S1 Anesthesia: Local Complications: None After informed consent was obtained, the patient was brought to the procedure room and placed in the prone position. The back area is prepped and draped in usual sterile fashion. The patient was placed on monitors. Using fluoroscopic guidance skin and subcutaneous tissue overlying needle trajectories to the target sites were anesthetized with 2% lidocaine. 20-gauge radiofrequency needles were advanced under fluoroscopic guidance to the appropriate anatomic landmarks. Needle tip position was confirmed on both sides in both the AP and lateral views. Next, all levels on the right were stimulated at 2Hz for motor stimulation at 2.0V with no lower extremity motor contractions. Next 1.0mL of 2.0% lidocaine was injected through each needle tip. Thereafter, radiofrequency lesioning was carried out at 80 degrees for 80 seconds twice. Next, all levels on the left were stimulated at 2Hz for motor stimulation at 2.0V with no lower extremity motor contractions. Next 1.0mL of 2.0% lidocaine was injected through each needle tip. Thereafter, radiofrequency lesioning was carried out at 80 degrees for 80 seconds twice. The needles were removed. The patient was then transferred to the recovery room in stable condition. Postprocedure lower extremity strength 5/5 bilaterally in hip flexors, quads, hamstrings, plantarflexion/dorsiflexion/FHL/EHL. Follow-up: Discharge instructions provided. The patient agrees to continue currently prescribed/recommended therapies. Future Appointments Appointment Date:04/29/2024 08:45:00 AM Scheduled Provider:Staci Kevin PA-C Location:[facility] Appointment Type:Pain Management - Follow Up (FT) [facility]03-19-2024 NoteHNO ID: [id number] Author: MARGARITA TAYLOR PA-C Service: ? Author Type: Physician Engineering Drawings Checker Type: Progress Notes Filed: 12/29/2023 15:50 Note Text: [id number] ATTENDING PHYSICIAN: Anselmo Mcpherson MD DATE OF SERVICE: December 29 2023 (Elements copied from Dr. Mcpherson's note dated 2023, have been reviewed and updated where appropriate, and all reflect current assessment and medical decision making during today's encounter, December 29, 2023) CC: Follow up Diagnosis: 1. 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 HPI: Eben returns for follow up. Has been off testosterone since October. Had cardioversion in november. He has been more tired since he quit testosterone. Otherwise doing well. Hgb has been around 16.5 at home. PAST MEDICAL HISTORY Diagnosis Date Former smoker HLD (hyperlipidemia) CHITIMACHA (hard of hearing) HTN (hypertension) Long-term use of aspirin therapy OA (osteoarthritis) of knee Polycythemia S/P right knee arthroscopy TIA (transient ischemic attack) Social History Tobacco Use Smoking status: Former Passive exposure: Past Smokeless tobacco: Former Types: Chew Quit date: 09/12/2016 Tobacco comments: QUIT 15 YEARS AGO Vaping Use Vaping Use: Never used Substance Use Topics Alcohol use: Yes Comment: rare Drug use: No FAMILY HISTORY Problem Relation Age of Onset Lipids Mother Hypertension Mother Hypertension Father Lipids Father Past medical, social and family history reviewed without any changes. REVIEW OF SYSTEMS GENERAL: No weight loss, malaise or fevers. No night sweats. +fatigue HEENT: Negative for headaches, No changes in hearing or vision, no nose bleeds or other nasal problems. RESPIRATORY: Negative for cough, wheezing and shortness of breath CARDIOVASCULAR: Negative for chest pain, leg swelling and palpitations GI: Negative for abdominal discomfort, blood in stools or black stools and change in bowel habits : Negative for dysuria, frequency and incontinence MUSCULOSKELETAL: Negative for joint pain or swelling, back pain, and muscle pain. SKIN: Negative for lesions, rash, and itching. HEMATOLOGY/LYMPHOLOGY Negative for prolonged bleeding, bruising easily, and swollen nodes. NEURO: Negative for numbness or tingling of hands/feet. No weakness. PHYSICAL EXAMINATION: BP 147/89 Pulse 72 Temp (Src) 97.6 (Temporal) Resp 16 Ht 5' 9.764 (1.77m) Wt 279 lb 1.6 oz (126.6kg) SpO2 97% BMI 40.32 kg/(m2). ECOG PERFORMANCE STATUS: 0- Fully active, able to carry on all pre-disease performance w/o restriction. General: Alert and oriented, no distress, pleasant and cooperative. Heart: Regular, normal S1 and S2, no murmurs, rubs, or gallops Lungs: Clear to auscultation bilaterally Abdomen: Benign Extremities: Feet/ankles without edema, posterior tibial pulses full and symmetrical LABS: Glucose (mg/dL) Date Value 2023 135 10/21/2019 Requisitioning entry error Potassium (mmol/L) Date Value 2023 3.8 10/21/2019 Requisitioning entry error Sodium (mmol/L) Date Value 2023 141 10/21/2019 Requisitioning entry error Chloride (mmol/L) Date Value 2023 108 10/21/2019 Requisitioning entry error CO2 (mmol/L) Date Value 2023 23 10/21/2019 Requisitioning entry error Creatinine (mg/dL) Date Value 2023 1.01 10/21/2019 Requisitioning entry error BUN (mg/dL) Date Value 2023 12 10/21/2019 Requisitioning entry error Anion Gap (mmol/L) Date Value 2023 10 10/21/2019 Requisitioning entry error Calcium (mg/dL) Date Value 10/21/2019 Requisitioning entry error Calcium, Total (mg/dL) Date Value 2023 9.0 Protein, Total (g/dL) Date Value 2023 6.4 10/21/2019 Requisitioning entry error Albumin (g/dL) Date Value 2023 3.9 10/21/2019 Requisitioning entry error Bilirubin, Total (mg/dL) Date Value 2023 0.8 10/21/2019 Requisitioning entry error Alkaline Phosphatase (U/L) Date Value 2023 90 10/21/2019 Requisitioning entry error AST (U/L) Date Value 2023 28 10/21/2019 Requisitioning entry error ALT (U/L) Date Value 2023 40 10/21/2019 Requisitioning entry error WBC Date Value Ref Range Status 12/29/2023 7.13 3.70 - 11.00 k/uL Final RBC Date Value Ref Range Status 12/29/2023 5.51 4.20 - 6.00 m/uL Final Hemoglobin Date Value Ref Range Status 12/29/2023 17.5 (H) 13.0 - 17.0 g/dL Final Hematocrit Date Value Ref Range Status 12/29/2023 49.8 39.0 - 51.0 % Final MCV Date Value Ref Range Status 12/29/2023 90.4 80.0 - 100.0 fL Final MCH Date Value Ref Range Status 12/29/2023 31.8 26.0 - 34.0 pg Final MCHC Date Value Ref Range Status 12/29/2023 35.1 30.5 - 36.0 g/dL (more content not included)...[facility]03-19-2024 History of Present illness Narrative* Margarita Taylor PA-C - 12/29/2023 3:18 PM EDT PATIENT NAME: Eben Perry [facility] NO.: [id number] ATTENDING PHYSICIAN: Anselmo Mcpherson MD DATE OF SERVICE: December 29 2023 (Elements copied from Dr. Mcpherson's note dated 2023, have been reviewed and updated where appropriate, and all reflect current assessment and medical decision making during today's encounter, December 29, 2023) CC: Follow up Diagnosis: 1. 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 HPI: Eben returns for follow up. Has been off testosterone since October. Had cardioversion in november. He has been more tired since he quit testosterone. Otherwise doing well. Hgb has been around 16.5 at home. PAST MEDICAL HISTORY Diagnosis Date Former smoker HLD (hyperlipidemia) CHITIMACHA (hard of hearing) HTN (hypertension) Long-term use of aspirin therapy OA (osteoarthritis) of knee Polycythemia S/P right knee arthroscopy TIA (transient ischemic attack) Social History Tobacco Use Smoking status: Former Passive exposure: Past Smokeless tobacco: Former Types: Chew Quit date: 09/12/2016 Tobacco comments: QUIT 15 YEARS AGO Vaping Use Vaping Use: Never used Substance Use Topics Alcohol use: Yes Comment: rare Drug use: No FAMILY HISTORY Problem Relation Age of Onset Lipids Mother Hypertension Mother Hypertension Father Lipids Father Past medical, social and family history reviewed without any changes. REVIEW OF SYSTEMS GENERAL: No weight loss, malaise or fevers. No night sweats. +fatigue HEENT: Negative for headaches, No changes in hearing or vision, no nose bleeds or other nasal problems. RESPIRATORY: Negative for cough, wheezing and shortness of breath CARDIOVASCULAR: Negative for chest pain, leg swelling and palpitations GI: Negative for abdominal discomfort, blood in stools or black stools and change in bowel habits : Negative for dysuria, frequency and incontinence MUSCULOSKELETAL: Negative for joint pain or swelling, back pain, and muscle pain. SKIN: Negative for lesions, rash, and itching. HEMATOLOGY/LYMPHOLOGY Negative for prolonged bleeding, bruising easily, and swollen nodes. NEURO: Negative for numbness or tingling of hands/feet. No weakness. PHYSICAL EXAMINATION: BP 147/89 Pulse 72 Temp (Src) 97.6 (Temporal) Resp 16 Ht 5' 9.764 (1.77m) Wt 279 lb 1.6 oz (126.6kg) SpO2 97% BMI 40.32 kg/(m^2). ECOG PERFORMANCE STATUS: 0- Fully active, able to carry on all pre-disease performance w/o restriction. General: Alert and oriented, no distress, pleasant and cooperative. Heart: Regular, normal S1 and S2, no murmurs, rubs, or gallops Lungs: Clear to auscultation bilaterally Abdomen: Benign Extremities: Feet/ankles without edema, posterior tibial pulses full and symmetrical LABS: Glucose (mg/dL) Date Value 2023 135 10/21/2019 Requisitioning entry error Potassium (mmol/L) Date Value 2023 3.8 10/21/2019 Requisitioning entry error Sodium (mmol/L) Date Value 2023 141 10/21/2019 Requisitioning entry error Chloride (mmol/L) Date Value 2023 108 10/21/2019 Requisitioning entry error CO2 (mmol/L) Date Value 2023 23 10/21/2019 Requisitioning entry error Creatinine (mg/dL) Date Value 2023 1.01 10/21/2019 Requisitioning entry error BUN (mg/dL) Date Value 2023 12 10/21/2019 Requisitioning entry error Anion Gap (mmol/L) Date Value 2023 10 10/21/2019 Requisitioning entry error Calcium (mg/dL) Date Value 10/21/2019 Requisitioning entry error Calcium, Total (mg/dL) Date Value 2023 9.0 Protein, Total (g/dL) Date Value 2023 6.4 10/21/2019 Requisitioning entry error Albumin (g/dL) Date Value 2023 3.9 10/21/2019 Requisitioning entry error Bilirubin, Total (mg/dL) Date Value 2023 0.8 10/21/2019 Requisitioning entry error Alkaline Phosphatase (U/L) Date Value 2023 90 10/21/2019 Requisitioning entry error AST (U/L) Date Value 2023 28 10/21/2019 Requisitioning entry error ALT (U/L) Date Value 2023 40 10/21/2019 Requisitioning entry error WBC Date Value Ref Range Status 12/29/2023 7.13 3.70 - 11.00 k/uL Final RBC Date Value Ref Range Status 12/29/2023 5.51 4.20 - 6.00 m/uL Final Hemoglobin Date Value Ref Range Status 12/29/2023 17.5 (H) 13.0 - 17.0 g/dL Final Hematocrit Date Value Ref Range Status 12/29/2023 49.8 39.0 - 51.0 % Final MCV Date Value Ref Range Status 12/29/2023 90.4 80.0 - 100.0 fL Final MCH Date Value Ref Range Status 12/29/2023 31.8 26.0 - 34.0 pg Final MCHC Date Value Ref Range Status 12/29/2023 35.1 30.5 - 36.0 g/dL Final RDW-CV Date Value Ref Range Status 12/29/2023 13.7 11.5 - 15.0 % Final Platelet Count Date Value Ref Range Status 12/29/2023 177 150 - 400 k/uL Final MPV Date Value Ref Range Status 12/29/2023 11.9 9.0 - 12.7 fL Final Abs Neut Date Value Ref Range Status 12/29/2023 3.96 1.45 - 7.50 k/uL Final Lymphocytes % Date Value Ref Range Status 12/29/2023 25.8 % Final Abs Lymph Date Value Ref Range Status 12/29/2023 1.84 1.00 - 4.00 k/uL Final Monocytes % Date Value Ref Range Status 12/29/2023 10.2 % Final Abs Kidder Date Value Ref Range Status 12/29/2023 0.73 <0.87 k/uL Final Abs Eosin Date Value Ref Range Status 12/29/2023 0.50 (H) <0.46 k/uL Final Basophils % Date Value Ref Range Status 12/29/2023 1.1 % Final Abs Baso Date Value Ref Range Status 12/29/2023 0.08 <0.11 k/uL Final PATH: Imaging: Abdominal ultrasound without any evidence of splenomegaly. Question gallbladder polyp versus stone. Assessment and Plan: Eben Arenas is a 63 year old year old male here for follow up. Secondary polycythemia, secondary to testosterone use. He recently stopped testosterone.. Based on previous discussion will phlebotomize if hemoglobin greater than 17.5. Today he does not need phlebotomy. Return in 2 months with repeat labs and phlebotomy if needed, however if he remains off testosterone, I would suspect he will no longer need it. Afib- s/p cardioversion per cardiology Margarita Taylor PA-C CC: Julia Mcdaniels MD - (Active), In Basket (Inactive) - User (Inactive) [address] [facility] [id number] (Ph) [facility] Nurse Note* Dinora Franz MA - 12/29/2023 3:04 PM EDT Patient thinks his Testosterone is low, he would like to discuss it with you. Dinora Buitrago MA documented in this [facility]-2024 Evaluation + Plan note Extracted from: Title:Pain Managment H&P new patient Author:Staci Sarmiento PA-C Date:12/14/23 Impression and Plan Patient is a 63-year-old male with a past medical history significant for lumbar spondylosis and chronic lower back pain. Patient underwent recent bilateral L4-5 and L5-S1 facet medial branch block done on 09/07/2023 that gave him significant relief of his lower back pain. He had 100 recently relief for a day. Patient also has a history of significant relief of his lower back pain with previous RFA's. The last 1 was done a few years ago. Patient had a recent cardioversion and is now on Eliquis so he is not able to use his Mobic. He uses baclofen with some improvement. He has undergone previous conservative treatments without relief. The most improvement he has gotten has been the previous RFA's and most recently the medial branch block Based on the significant response to get from the recent medial branch block we discussed once again pursuing bilateral L4-5 and L5-S1 facet medial ranch block under fluoroscopy for diagnostic purposes. Patient gets significant short-term relief he may be a future candidate for RFA. Procedure was discussed. Risk and benefits were discussed. Patient is agreeable. He will follow-up to us after the injection for reevaluation. Call clinic sooner if necessary. GIAN score: 26% [facility]02-07-2024 Evaluation note* Encounter Date Diagnosis Assessment Notes Treatment Notes Treatment Clinical Notes Nov, Localized osteoarthritis of lumbar spine (ICD-10 - M47.816) [facility]-24-2024 [facility] NoteHNO ID: [id number] Author: ANSELMO MCPHERSON MD Service: ? Author Type: Physician Type: Progress Notes Filed: 2023 09:49 Note Text: PATIENT NAME: Eben Alexandermmer CLINIC NO.: [id number] ATTENDING PHYSICIAN: Anselmo Mcpherson MD DATE OF SERVICE: 2023 Some of the elements of this note have been copied from my previous progress note dated 12/17/2022. All the information has been reviewed carefully. Dear Dr. APONTE here is an update on a follow up visit on male Eben Arenas at the clinic 2023 Diagnosis: 1. 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 HPI: Eben Arenas is a 63 year old year old male here for follow up. He has been diagnosed with afib and planning cardioversion next week. On Eliquis as well. PAST MEDICAL HISTORY Diagnosis Date Former smoker HLD (hyperlipidemia) CHITIMACHA (hard of hearing) HTN (hypertension) Long-term use of aspirin therapy OA (osteoarthritis) of knee Polycythemia S/P right knee arthroscopy TIA (transient ischemic attack) Social History Tobacco Use Smoking status: Former Passive exposure: Past Smokeless tobacco: Former Types: Chew Quit date: 09/12/2016 Tobacco comments: QUIT 15 YEARS AGO Vaping Use Vaping Use: Never used Substance Use Topics Alcohol use: Yes Comment: rare Drug use: No FAMILY HISTORY Problem Relation Age of Onset Lipids Mother Hypertension Mother Hypertension Father Lipids Father Past medical, social and family history reviewed without any changes. REVIEW OF SYSTEMS GENERAL: No weight loss, malaise or fevers. No night sweats. HEENT: Negative for headaches, No changes in hearing or vision, no nose bleeds or other nasal problems. RESPIRATORY: Negative for cough, wheezing and shortness of breath CARDIOVASCULAR: Negative for chest pain, leg swelling and palpitations GI: Negative for abdominal discomfort, blood in stools or black stools and change in bowel habits : Negative for dysuria, frequency and incontinence MUSCULOSKELETAL: Negative for joint pain or swelling, back pain, and muscle pain. SKIN: Negative for lesions, rash, and itching. HEMATOLOGY/LYMPHOLOGY Negative for prolonged bleeding, bruising easily, and swollen nodes. NEURO: Negative for numbness or tingling of hands/feet. No weakness. PHYSICAL EXAMINATION: BP 108/84 Pulse 128 Temp (Src) 97.3 (Temporal) Resp 16 Ht 5' 9.764 (1.77m) Wt 277 lb 9 oz (125.9kg) SpO2 95% BMI 40.10 kg/(m2). Wt 130.2 kg (287 lb) BMI 41.46 kg/m2 Last 3 Encounter Wt Readings: Date: Wt: 08/15/2019 130.2 kg (287 lb) 07/18/2019 127.4 kg (280 lb 12.8 oz) 09/19/2016 117.9 kg (260 lb) General appearance:ECOG PERFORMANCE STATUS: 0- Fully active, able to carry on all pre-disease performance w/o restriction. Patient in NAD. Skin: Skin color, texture, turgor normal. No rashes or lesions. Eyes: Anicteric sclera. Pupils are equally round and reactive to light. Extraocular movements are intact. Lymph Nodes: No cervical, supraclavicular, axillary or inguinal adenopathy. Oropharynx: Lips, mucosa, and tongue normal. Back: No pain to percussion. Negative SLR test Lungs clear to auscultation, No wheezing or rhonchi Heart: RRR without murmur, gallop, or rubs. Abdomen soft, non-tender. No masses, organomegaly Extremities: No deformities. No edema Neuro: Gait and speech normal. Reflexes normal and symmetric. Muscular strength intact. Sensation grossly intact. Rectal: Deferred : Deferred LABS: Glucose (mg/dL) Date Value 2023 135 10/21/2019 Requisitioning entry error Potassium (mmol/L) Date Value 2023 3.8 10/21/2019 Requisitioning entry error Sodium (mmol/L) Date Value 2023 141 10/21/2019 Requisitioning entry error Chloride (mmol/L) Date Value 2023 108 10/21/2019 Requisitioning entry error CO2 (mmol/L) Date Value 2023 23 10/21/2019 Requisitioning entry error Creatinine (mg/dL) Date Value 2023 1.01 10/21/2019 Requisitioning entry error BUN (mg/dL) Date Value 2023 12 10/21/2019 Requisitioning entry error Anion Gap (mmol/L) Date Value 2023 10 10/21/2019 Requisitioning entry error Calcium (mg/dL) Date Value 10/21/2019 Requisitioning entry error Calcium, Total (mg/dL) Date Value 2023 9.0 Protein, Total (g/dL) Date Value 2023 6.4 10/21/2019 Requisitioning entry error Albumin (g/dL) Date Value 2023 3.9 10/21/2019 Requisitioning entry error Bilirubin, Total (mg/dL) Date Value 2023 0.8 10/21/2019 Requisitioning entry error Alkaline Phosphatase (U/L) Date Value 2023 90 10/21/2019 Requisitioning entry error AST (U/L) Date Value 2023 28 10/21/2019 Requisitioning entry error ALT (U/L) Date Value 2023 40 10/12 (more content not included)...[facility]01-[facility] History of Present illness Narrative* Alejandrina Apodaca CMA - 10/26/2023 1:00 PM EST Patient here for at EKG visit ordered by Dr. Rabago due to A-Fib. Dr. Phipps in suite physician. Patient here due to starting Sotalol and stopping Metoprolol Succinate. Medication list Updated verbally. Patient states that he can feel his heart flutter occasionally. Patient has no other cardiac complaints at time of visit. Discussed with Antonia Thompson Rn prior to discharge. To Dr. Rabago for review Vitals: 10/26/23 1516 BP: 114/74 BP Location: Right arm Patient Position: Sitting Pulse: (!) 138 Weight: 125 kg (276 lb) Height: 1.778 m (5' 10 ) documented in this [facility] Work Phone: [phone] 100-197701-11-2024 History of Present illness Narrative* Jen Aguilar LPN - 10/22/2023 9:00 AM EST Patient here for at EKG visit ordered by Dr. Rabago due to AFIB. Dr. Duran in suite physician. Patient here due to HR running high in the 140's at home. . Medication list Updated verbally.Palpitations is the only cardiac complaints. Discussed with Kirstie NIEVES prior to discharge. Patient has only been on Eliquis for 2 weeks, currently scheduled 11/04/[address] Rabago for review Vitals: 10/22/23 0942 BP: 98/78 BP Location: Right arm Patient Position: Sitting Pulse: (!) 142 Weight: 125 kg (276 lb) Height: 1.778 m (5' 10 ) documented in this [facility] Work Phone: 1(755) 743-367612-27-2023 History of Present illness Narrative* Americo Rabago MD - 10/07/2023 1:10 PM EST Subjective Eben Arenas is a 62 y.o. male Chief Complaint Follow-up HPI Patient was added onto our schedule because of a phone call. He apparently had presented for an outpatient surgical procedure at [facility] and was found to be in atrial flutter withrapid ventricular response. His surgery was canceled and we were notified. We internal affairs commander contacted the patient and made arrangements for follow-up today. The patient is in atrial flutter with a ventricular response of 160 bpm. This was discussed and explained in tremendous detail to the patient. He is mildly and/or minimally symptomatic. Nonetheless the risks of stroke and cardiomyopathy were explained him in detail and ultimately he agreed to implement antithrombotic therapy to mitigate stroke risk and also beta-jayne therapy in hopes that we could slow his ventricular response. We advocate and her proposed a cardioversion in about 3 weeks and he is in agreement. Despite the sustained high heart rate he has minimal shortness of breath no real fatigue no lightheadedness dizziness or chest pain. Because of this we believe he is otherwise stable from a cardiac standpoint. Because he has atrial flutter I believe the propensity under likelihood of successful cardioversion is higher and we will forego antiarrhythmic therapy at this time. If in the future he has recurrent atrial fibrillation or flutter antiarrhythmics will be proposed. The patient understands the diagnosis and the rationale and the plan of care. He was instructed to call if any problems or symptoms arise but otherwise we will see him as noted. Review of Systems All other systems reviewed and are negative. Visit Vitals BP 110/82 (BP Location: Left arm, Patient Position: Sitting) Pulse (!) 159 Ht 1.778 m (5' 10 ) Wt 128 kg (282 lb) BMI 40.46 kg/m Smoking Status Former BSA 2.51 m EKG done in office today Objective Physical Exam Constitutional: Appearance: Normal appearance. He is normal weight. HENT: Nose: Nose normal. Neck: Vascular: No carotid bruit. Cardiovascular: Rate and Rhythm: Normal rate. Pulses: Normal pulses. Heart sounds: Normal heart sounds. Pulmonary: Effort: Pulmonary effort is normal. Breath sounds: Wheezing present. Abdominal: General: Bowel sounds are normal. Palpations: Abdomen is soft. Genitourinary: Rectum: Normal. Musculoskeletal: General: Normal range of motion. Cervical back: Normal range of motion. Right lower leg: No edema. Left lower leg: No edema. Skin: General: Skin is warm and dry. Neurological: General: No focal deficit present. Mental Status: He is alert. Psychiatric: Mood and Affect: Mood normal. Behavior: Behavior normal. Thought Content: Thought content normal. Judgment: Judgment normal. Current Medications Current Outpatient Medications: aspirin 325 mg tablet, Take 1 tablet (325 mg) by mouth once daily., Disp: , Rfl: baclofen (Lioresal) 10 mg tablet, Take 1 tablet (10 mg) by mouth 3 times a day as needed for musclespasms., Disp: , Rfl: lisinopriL-hydrochlorothiazide 20-12.5 mg tablet, Take 1 tablet by mouth once daily., Disp: , Rfl: multivitamin tablet, Take 1 tablet by mouth once daily., Disp: , Rfl: niacin 500 mg ER tablet, Take 1 tablet (500 mg) by mouth once daily at bedtime. Do not crush, chew,or split., Disp: , Rfl: Assessment/Plan 1. Abnormal EKG Patient's EKG at the time of surgery and today demonstrates atrial flutter with 2-1 conduction. - ECG 12 Lead 2. Essential hypertension Patient's blood pressure is adequately controlled at the moment. He notes it is a bit lower with atrial flutter and I concur that this is a common phenomenon. - Follow Up In Cardiology; Future 3. Persistent atrial fibrillation (CMS/HCC) Patient's arrhythmia is actually atrial flutter. Chart will be corrected. Nonetheless our plan of care as above which is rate control and antithrombotic therapy for 3 weeks followed by elective cardioversion. - Follow Up In Cardiology; Future - apixaban (Eliquis) 5 mg tablet; Take 1 tablet (5 mg) by mouth 2 times a day. Dispense: 180 tablet; Refill: 3 - metoprolol succinate XL (Toprol-XL) 100 mg 24 hr tablet; Take 1 tablet (100 mg) by mouth once daily. Do not crush or chew. Dispense: 90 tablet; Refill: 3 - Cardioversion External; Future 4. Preoperative clearance Patient was previously evaluated for surgery and we performed preop clearance. He had no atrial fibrillation or flutter at that time. - ECG 12 Lead 5. PAC (premature atrial contraction) Historically the patient had symptoms and/or findings of PACs and PVCs but no atrial fibrillation or atrial flutter hence this is a new development. 6. Palpitations Patient's palpitations were actually more prevalent when he had paroxysms of atrial premature beatsand/or PVCs. He cannot feel and/or is not aware that he is in atrial flutter with sustained rate and it was only detected when he presented for his surgical procedure. [facility] Work Phone: [phone] 753-887512-27-2023 Instructions* Patient Instructions* Mary Jane Schmidt LPN - 10/07/2023 1:10 PM EST Please bring all medicines, vitamins, and herbal supplements with you when you come to the office. Prescriptions will not be filled unless you are compliant with your follow up appointments or have a follow up appointment scheduled as per instruction of your physician. Refills should be requested at the time of your visit. documented in this encounterUnWilson [facility] Work Phone: [phone]) 447-773412-21-2023 Miscellaneous Notes* Telephone Encounter - Margarita Taylor PA-C - 10/01/2023 8:50 AM EST Anselmo, The patient wanted to go off of tetsosterone and after checking with pharmacy, they recommended he see urology or [facility] who specializes in this because I guess stopping cold turkey can cause withdrawal issues. So I recommended he see someone before stopping completely. Patient had phlebotomy on 09/29/2023 for H/H of 18.8/56.9. He is now saying his hgb is 18.1 at home. He is concerned because he is having surgery on his shoulder next week and his hgb is still high. Do you have any recommendations for him? Should he have additional phleb before surgery? Would stopping testosterone right now effect his hgb that much to decrease his hgb in a week (before his surgery)? Margarita Taylor PA-C documented [facility] this [facility]-2023 Miscellaneous Notes* Telephone Encounter - Olaf Pandya RN - 09/30/2023 3:24 PM EST Pt aware of MM message. He will continue medication until he can figure out how to DC safely. Pt iscalling [facility] to see if they are able to do this. If not, he will get a urology referral on 10/27/23 appointment. Olaf Pandya RN * Telephone Encounter - Margarita Taylor PA-C - 09/30/2023 3:10 PM EST Please call patient and advise that after discussing testosterone discontinuation with pharmacy, they recommended he see urology to be sure it is done properly. The other option is to see if [facility] does this as well. Thanks Margarita Taylor PA-C documented in this encounterK[facility]12-19-2023 NoteHNO ID: [id number] Author: Margarita Taylor PA-C Service: ? Author Type: Physician Engineering Drawings Checker Type: Progress Notes Filed: 09/29/2023 3:38 PM Note Text: PATIENT NAME: Eben Arenas [facility] NO.: [id number] ATTENDING PHYSICIAN: Anselmo Mcpherson MD DATE OF SERVICE: September 29, 2023 (Elements copied from Dr. Mcpherson's note dated Aug 26, 2023, have been reviewed and updated where appropriate, and all reflect current assessment and medical decision making during today's encounter, September 29, 2023) CC: Follow up Diagnosis: 1. 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 HPI: Eben returns for follow up. Had phlebotomy last month, and since that time has cut back on his testosterone dose to half the dose he was taking each week. His hgb has remained elevated at home around 18.4-18.9. He is concerned about this. He has upcoming shoulder surgery as well. He would like to try to come off of testosterone but Is unsure how since he is been on it for year. He feels fine. Denies any headaches. PAST MEDICAL HISTORY Diagnosis Date Former smoker HLD (hyperlipidemia) CHITIMACHA (hard of hearing) HTN (hypertension) Long-term use of aspirin therapy OA (osteoarthritis) of knee Polycythemia S/P right knee arthroscopy TIA (transient ischemic attack) Social History Tobacco Use Smoking status: Former Passive exposure: Past Smokeless tobacco: Former Types: Chew Quit date: 09/12/2016 Tobacco comments: QUIT 15 YEARS AGO Vaping Use Vaping Use: Never used Substance Use Topics Alcohol use: Yes Comment: rare Drug use: No FAMILY HISTORY Problem Relation Age of Onset Lipids Mother Hypertension Mother Hypertension Father Lipids Father Past medical, social and family history reviewed without any changes. REVIEW OF SYSTEMS GENERAL: No weight loss, malaise or fevers. No night sweats. HEENT: Negative for headaches, No changes in hearing or vision, no nose bleeds or other nasal problems. RESPIRATORY: Negative for cough, wheezing and shortness of breath CARDIOVASCULAR: Negative for chest pain, leg swelling and palpitations GI: Negative for abdominal discomfort, blood in stools or black stools and change in bowel habits : Negative for dysuria, frequency and incontinence MUSCULOSKELETAL: Negative for joint pain or swelling, back pain, and muscle pain. SKIN: Negative for lesions, rash, and itching. HEMATOLOGY/LYMPHOLOGY Negative for prolonged bleeding, bruising easily, and swollen nodes. NEURO: Negative for numbness or tingling of hands/feet. No weakness. PHYSICAL EXAMINATION: BP 149/83 Pulse 81 Temp (Src) 97.8 (Temporal) Resp 16 Ht 5' 9.764 (1.77m) Wt 282 lb 10.1 oz (128.2kg) SpO2 100% BMI 40.83 kg/(m2). ECOG PERFORMANCE STATUS: 0- Fully active, able to carry on all pre-disease performance w/o restriction. General: Alert and oriented, no distress, pleasant and cooperative. Heart: Regular, normal S1 and S2, no murmurs, rubs, or gallops Lungs: Clear to auscultation bilaterally Abdomen: Benign Extremities: Feet/ankles without edema, posterior tibial pulses full and symmetrical LABS: Glucose (mg/dL) Date Value 08/26/2023 91 10/21/2019 Requisitioning entry error Potassium (mmol/L) Date Value 08/26/2023 3.7 10/21/2019 Requisitioning entry error Sodium (mmol/L) Date Value 08/26/2023 140 10/21/2019 Requisitioning entry error Chloride (mmol/L) Date Value 08/26/2023 102 10/21/2019 Requisitioning entry error CO2 (mmol/L) Date Value 08/26/2023 29 10/21/2019 Requisitioning entry error Creatinine (mg/dL) Date Value 08/26/2023 1.20 10/21/2019 Requisitioning entry error BUN (mg/dL) Date Value 08/26/2023 9 10/21/2019 Requisitioning entry error Anion Gap (mmol/L) Date Value 08/26/2023 9 10/21/2019 Requisitioning entry error Calcium (mg/dL) Date Value 10/21/2019 Requisitioning entry error Calcium, Total (mg/dL) Date Value 08/26/2023 9.4 Protein, Total (g/dL) Date Value 08/26/2023 6.7 10/21/2019 Requisitioning entry error Albumin (g/dL) Date Value 08/26/2023 4.5 10/21/2019 Requisitioning entry error Bilirubin, Total (mg/dL) Date Value 08/26/2023 0.8 10/21/2019 Requisitioning entry error Alkaline Phosphatase (U/L) Date Value 08/26/2023 82 10/21/2019 Requisitioning entry error AST (U/L) Date Value 08/26/2023 37 10/21/2019 Requisitioning entry error ALT (U/L) Date Value 08/26/2023 49 10/21/2019 Requisitioning entry error WBC Date Value Ref Range Status 09/29/2023 5.98 3.70 - 11.00 k/uL Final RBC Date Value Ref Range Status 09/29/2023 6.18 (H) 4.20 - 6.00 m/uL Final Hemoglobin Date Value Ref Range Status 09/29/2023 18.8 (H) 13.0 - 17.0 g/dL Final Hematocrit Date Value Ref Range Status 09/29/2023 56.9 (H) 39.0 - 51.0 % Final (more content not included)...[facility] NoteHNO ID: [id number] Author: Anselmo Mcpherson MD Service: ? Author Type: Physician Type: Progress Notes Filed: 08/26/2023 3:39 PM Note Text: PATIENT NAME: Eben Arenas [facility] NO.: [id number] ATTENDING PHYSICIAN: Anselmo Mcpherson MD DATE OF SERVICE: December 17, 2022 Some of the elements of this note have been copied from my previous progress note dated 08/27/2022. All the information has been reviewed carefully. Dear Dr. APONTE here is an update on a follow up visit on male Eben Arenas at the clinic December 17, 2022 Diagnosis: 1. 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 HPI: Eben Arenas is a 62 year old year old male here for follow up. Feels ok and labs elevated at home PAST MEDICAL HISTORY Diagnosis Date Former smoker HLD (hyperlipidemia) CHITIMACHA (hard of hearing) HTN (hypertension) Long-term use of aspirin therapy OA (osteoarthritis) of knee Polycythemia S/P right knee arthroscopy TIA (transient ischemic attack) Social History Tobacco Use Smoking status: Former Passive exposure: Past Smokeless tobacco: Former Types: Chew Quit date: 09/12/2016 Tobacco comments: QUIT 15 YEARS AGO Vaping Use Vaping Use: Never used Substance Use Topics Alcohol use: Yes Comment: rare Drug use: No FAMILY HISTORY Problem Relation Age of Onset Lipids Mother Hypertension Mother Hypertension Father Lipids Father Past medical, social and family history reviewed without any changes. REVIEW OF SYSTEMS GENERAL: No weight loss, malaise or fevers. No night sweats. HEENT: Negative for headaches, No changes in hearing or vision, no nose bleeds or other nasal problems. RESPIRATORY: Negative for cough, wheezing and shortness of breath CARDIOVASCULAR: Negative for chest pain, leg swelling and palpitations GI: Negative for abdominal discomfort, blood in stools or black stools and change in bowel habits : Negative for dysuria, frequency and incontinence MUSCULOSKELETAL: Negative for joint pain or swelling, back pain, and muscle pain. SKIN: Negative for lesions, rash, and itching. HEMATOLOGY/LYMPHOLOGY Negative for prolonged bleeding, bruising easily, and swollen nodes. NEURO: Negative for numbness or tingling of hands/feet. No weakness. PHYSICAL EXAMINATION: BP 135/76 Pulse 87 Temp (Src) 97.6 (Temporal) Resp 18 Ht 5' 9.764 (1.77m) Wt 285 lb (129.3kg) SpO2 97% BMI 41.17 kg/(m2). Wt 130.2 kg (287 lb) BMI 41.46 kg/m2 Last 3 Encounter Wt Readings: Date: Wt: 08/15/2019 130.2 kg (287 lb) 07/18/2019 127.4 kg (280 lb 12.8 oz) 09/19/2016 117.9 kg (260 lb) General appearance:ECOG PERFORMANCE STATUS: 0- Fully active, able to carry on all pre-disease performance w/o restriction. Patient in NAD. Skin: Skin color, texture, turgor normal. No rashes or lesions. Eyes: Anicteric sclera. Pupils are equally round and reactive to light. Extraocular movements are intact. Lymph Nodes: No cervical, supraclavicular, axillary or inguinal adenopathy. Oropharynx: Lips, mucosa, and tongue normal. Back: No pain to percussion. Negative SLR test Lungs clear to auscultation, No wheezing or rhonchi Heart: RRR without murmur, gallop, or rubs. Abdomen soft, non-tender. No masses, organomegaly Extremities: No deformities. No edema Neuro: Gait and speech normal. Reflexes normal and symmetric. Muscular strength intact. Sensation grossly intact. Rectal: Deferred : Deferred LABS: Glucose (mg/dL) Date Value 08/26/2023 91 10/21/2019 Requisitioning entry error Potassium (mmol/L) Date Value 08/26/2023 3.7 10/21/2019 Requisitioning entry error Sodium (mmol/L) Date Value 08/26/2023 140 10/21/2019 Requisitioning entry error Chloride (mmol/L) Date Value 08/26/2023 102 10/21/2019 Requisitioning entry error CO2 (mmol/L) Date Value 08/26/2023 29 10/21/2019 Requisitioning entry error Creatinine (mg/dL) Date Value 08/26/2023 1.20 10/21/2019 Requisitioning entry error BUN (mg/dL) Date Value 08/26/2023 9 10/21/2019 Requisitioning entry error Anion Gap (mmol/L) Date Value 08/26/2023 9 10/21/2019 Requisitioning entry error Calcium (mg/dL) Date Value 10/21/2019 Requisitioning entry error Calcium, Total (mg/dL) Date Value 08/26/2023 9.4 Protein, Total (g/dL) Date Value 08/26/2023 6.7 10/21/2019 Requisitioning entry error Albumin (g/dL) Date Value 08/26/2023 4.5 10/21/2019 Requisitioning entry error Bilirubin, Total (mg/dL) Date Value 08/26/2023 0.8 10/21/2019 Requisitioning entry error Alkaline Phosphatase (U/L) Date Value 08/26/2023 82 10/21/2019 Requisitioning entry error AST (U/L) Date Value 08/26/2023 37 10/21/2019 Requisitioning entry error ALT (U/L) Date Value 08/26/2023 49 10/21/2019 Requisitioning entry error WBC Date Value Ref Range Sta (more content not included)...[facility]11-15-2023 History of Present illness Narrative* Anselmo Mcpherson MD - 08/26/2023 3:36 PM EST PATIENT NAME: Eben Arenas CLINIC NO.: [id number] ATTENDING PHYSICIAN: Anselmo Mcpherson MD DATE OF SERVICE: December 17, 2022 Some of the elements of this note have been copied from my previous progress note dated 08/27/2022.All the information has been reviewed carefully. Dear Dr. APONTE here is an update on a follow up visit on male Eben Arenas at the clinic December Diagnosis: 1. 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 HPI: Eben Arenas is a 62 year old year old male here for follow up. Feels ok and labs elevated at home PAST MEDICAL HISTORY Diagnosis Date Former smoker HLD (hyperlipidemia) CHITIMACHA (hard of hearing) HTN (hypertension) Long-term use of aspirin therapy OA (osteoarthritis) of knee Polycythemia S/P right knee arthroscopy TIA (transient ischemic attack) Social History Tobacco Use Smoking status: Former Passive exposure: Past Smokeless tobacco: Former Types: Chew Quit date: 09/12/2016 Tobacco comments: QUIT 15 YEARS AGO Vaping Use Vaping Use: Never used Substance Use Topics Alcohol use: Yes Comment: rare Drug use: No FAMILY HISTORY Problem Relation Age of Onset Lipids Mother Hypertension Mother Hypertension Father Lipids Father Past medical, social and family history reviewed without any changes. REVIEW OF SYSTEMS GENERAL: No weight loss, malaise or fevers. No night sweats. HEENT: Negative for headaches, No changes in hearing or vision, no nose bleeds or other nasal problems. RESPIRATORY: Negative for cough, wheezing and shortness of breath CARDIOVASCULAR: Negative for chest pain, leg swelling and palpitations GI: Negative for abdominal discomfort, blood in stools or black stools and change in bowel habits : Negative for dysuria, frequency and incontinence MUSCULOSKELETAL: Negative for joint pain or swelling, back pain, and muscle pain. SKIN: Negative for lesions, rash, and itching. HEMATOLOGY/LYMPHOLOGY Negative for prolonged bleeding, bruising easily, and swollen nodes. NEURO: Negative for numbness or tingling of hands/feet. No weakness. PHYSICAL EXAMINATION: BP 135/76 Pulse 87 Temp (Src) 97.6 (Temporal) Resp 18 Ht 5' 9.764 (1.77m) Wt 285 lb (129.3kg) SpO2 97% BMI 41.17 kg/(m^2). Wt 130.2 kg (287 lb) BMI 41.46 kg/m2 Last 3 Encounter Wt Readings: Date: Wt: 08/15/2019 130.2 kg (287 lb) 07/18/2019 127.4 kg (280 lb 12.8 oz) 09/19/2016 117.9 kg (260 lb) General appearance:ECOG PERFORMANCE STATUS: 0- Fully active, able to carry on all pre-disease performance w/o restriction. Patient in NAD. Skin: Skin color, texture, turgor normal. No rashes or lesions. Eyes: Anicteric sclera. Pupils are equally round and reactive to light. Extraocular movements are intact. Lymph Nodes: No cervical, supraclavicular, axillary or inguinal adenopathy. Oropharynx: Lips, mucosa, and tongue normal. Back: No pain to percussion. Negative SLR test Lungs clear to auscultation, No wheezing or rhonchi Heart: RRR without murmur, gallop, or rubs. Abdomen soft, non-tender. No masses, organomegaly Extremities: No deformities. No edema Neuro: Gait and speech normal. Reflexes normal and symmetric. Muscular strength intact. Sensation grossly intact. Rectal: Deferred : Deferred LABS: Glucose (mg/dL) Date Value 08/26/2023 91 10/21/2019 Requisitioning entry error Potassium (mmol/L) Date Value 08/26/2023 3.7 10/21/2019 Requisitioning entry error Sodium (mmol/L) Date Value 08/26/2023 140 10/21/2019 Requisitioning entry error Chloride (mmol/L) Date Value 08/26/2023 102 10/21/2019 Requisitioning entry error CO2 (mmol/L) Date Value 08/26/2023 29 10/21/2019 Requisitioning entry error Creatinine (mg/dL) Date Value 08/26/2023 1.20 10/21/2019 Requisitioning entry error BUN (mg/dL) Date Value 08/26/2023 9 10/21/2019 Requisitioning entry error Anion Gap (mmol/L) Date Value 08/26/2023 9 10/21/2019 Requisitioning entry error Calcium (mg/dL) Date Value 10/21/2019 Requisitioning entry error Calcium, Total (mg/dL) Date Value 08/26/2023 9.4 Protein, Total (g/dL) Date Value 08/26/2023 6.7 10/21/2019 Requisitioning entry error Albumin (g/dL) Date Value 08/26/2023 4.5 10/21/2019 Requisitioning entry error Bilirubin, Total (mg/dL) Date Value 08/26/2023 0.8 10/21/2019 Requisitioning entry error Alkaline Phosphatase (U/L) Date Value 08/26/2023 82 10/21/2019 Requisitioning entry error AST (U/L) Date Value 08/26/2023 37 10/21/2019 Requisitioning entry error ALT (U/L) Date Value 08/26/2023 49 10/21/2019 Requisitioning entry error WBC Date Value Ref Range Status 08/26/2023 7.32 3.70 - 11.00 k/uL Final RBC Date Value Ref Range Status 08/26/2023 6.15 (H) 4.20 - 6.00 m/uL Final Hemoglobin Date Value Ref Range Status 08/26/2023 19.0 (H) 13.0 - 17.0 g/dL Final Hematocrit Date Value Ref Range Status 08/26/2023 57.0 (H) 39.0 - 51.0 % Final MCV Date Value Ref Range Status 08/26/2023 92.7 80.0 - 100.0 fL Final MCH Date Value Ref Range Status 08/26/2023 30.9 26.0 - 34.0 pg Final MCHC Date Value Ref Range Status 08/26/2023 33.3 30.5 - 36.0 g/dL Final RDW-CV Date Value Ref Range Status 08/26/2023 14.5 11.5 - 15.0 % Final Platelet Count Date Value Ref Range Status 08/26/2023 153 150 - 400 k/uL Final MPV Date Value Ref Range Status 08/26/2023 12.2 9.0 - 12.7 fL Final Abs Neut Date Value Ref Range Status 08/26/2023 4.78 1.45 - 7.50 k/uL Final Lymphocytes % Date Value Ref Range Status 08/26/2023 18.9 % Final Abs Lymph Date Value Ref Range Status 08/26/2023 1.38 1.00 - 4.00 k/uL Final Monocytes % Date Value Ref Range Status 08/26/2023 11.9 % Final Abs Kidder Date Value Ref Range Status 08/26/2023 0.87 (H) <0.87 k/uL Final Eosinophils % Date Value Ref Range Status 08/26/2023 2.9 % Final Abs Eosin Date Value Ref Range Status 08/26/2023 0.21 <0.46 k/uL Final Basophils % Date Value Ref Range Status 08/26/2023 0.8 % Final Abs Baso Date Value Ref Range Status 08/26/2023 0.06 <0.11 k/uL Final PATH: Imaging: Abdominal ultrasound without any evidence of splenomegaly. Question gallbladder polyp versus stone. Assessment and Plan: Eben Arenas is a 62 year old year old male here for follow up. Secondary polycythemia, secondary to testosterone use. He will not stop testosterone understanding the potential complications. Based on previous discussion will phlebotomize if hemoglobin greater than 17.5. He does monitor his own hemoglobin at home as well. Will go ahead with 1 unit of phlebotomy today Repeat labs in 2 months. Additional phlebotomy at that time if indicated Thank you for the kind referral. If there are any questions and or concerns please do not hesitate to contact me at [phone]. Anselmo Mcpherson MD Hematology/Medical Oncology [facility] CC: Julia Mcdaniels MD - (Active), In Basket (Inactive) - User (Inactive) [address] [facility] [id number] (Ph) documented in this encounter[facility]-2023 Miscellaneous Notes* Telephone Encounter - Cody Maldonado - 07/01/2023 9:15 AM EDT Patient is scheduled for phlebotomy on Thursday, 07/10 and notified. Thanks! Cody Maldonado * Telephone Encounter - Anselmo Mchperson MD - 06/30/2023 2:38 PM EDT Order placed for next week * Telephone Encounter - Olaf Pandya RN - 06/30/2023 2:21 PM EDT Pt's home Hgb 19.5 today. He was encouraged to call and schedule a phlebotomy >18. Jovan/MM: please place orders Olaf Pandya RN [facility]* Encounter Date Diagnosis Assessment Notes Treatment Notes Treatment Clinical Notes Jun, Adverse effect of drug, initial encounter (ICD-10 - T50.905A) Advised he not use off label meds, but if he does try other injection sites such as quads for semaglutide. Call if area does not resolve or if symptoms worsen. [facility] 09-12-2023 Evaluation note* Encounter Date Diagnosis Assessment Notes Treatment Notes Treatment Clinical Notes Jun, Adverse effect of drug, initial encounter (ICD-10 - T50.905A) Advised he not use off label meds, but if he does try other injection sites such as quads for semaglutide. Call if area does not resolve or if symptoms worsen. I have not clinically experienced internal shingles and I do not believe this is a diagnosis. His discomfort is related to off label medication use from a non pharmacy source. [facility] Other 08-17-2023 Evaluation note* Encounter Date Diagnosis Assessment Notes Treatment Notes Treatment Clinical Notes May, Mass of joint of right shoulder (ICD-10 - M25.811) Check Xray. He will contact Dr. Quesada he is est there. Followup here prn. Has tried NSAIDs and ice [facility] 07-12-2023 NoteHNO ID: [id number] Author: Anselmo Mcpherson MD Service: ? Author Type: Physician Type: Progress Notes Filed: 04/22/2023 11:03 PM Note Text: PATIENT NAME: Eben Arenas CLINIC NO.: [id number] ATTENDING PHYSICIAN: Anselmo Mcpherson MD DATE OF SERVICE: December 17, 2022 Some of the elements of this note have been copied from my previous progress note dated 08/27/2022. All the information has been reviewed carefully. Dear Dr. APONTE here is an update on a follow up visit on male Eben Arenas at the clinic December 17, 2022 Diagnosis: 1. 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 HPI: Eben Arenas is a 62 year old year old male here for follow up. He states that when is red cell count is up he feels tired and denies any Hernandez and or visual changes and or itching. Continues with testosterone use and also was noted tohave an elevated Insulin level PAST MEDICAL HISTORY Diagnosis Date Former smoker HLD (hyperlipidemia) CHITIMACHA (hard of hearing) HTN (hypertension) Long-term use of aspirin therapy OA (osteoarthritis) of knee Polycythemia S/P right knee arthroscopy TIA (transient ischemic attack) Social History Tobacco Use Smoking status: Former Passive exposure: Past Smokeless tobacco: Former Types: Chew Quit date: 09/12/2016 Tobacco comments: QUIT 15 YEARS AGO Vaping Use Vaping Use: Never used Substance Use Topics Alcohol use: Yes Comment: rare Drug use: No FAMILY HISTORY Problem Relation Age of Onset Lipids Mother Hypertension Mother Hypertension Father Lipids Father Past medical, social and family history reviewed without any changes. REVIEW OF SYSTEMS GENERAL: No weight loss, malaise or fevers. No night sweats. HEENT: Negative for headaches, No changes in hearing or vision, no nose bleeds or other nasal problems. RESPIRATORY: Negative for cough, wheezing and shortness of breath CARDIOVASCULAR: Negative for chest pain, leg swelling and palpitations GI: Negative for abdominal discomfort, blood in stools or black stools and change in bowel habits : Negative for dysuria, frequency and incontinence MUSCULOSKELETAL: Negative for joint pain or swelling, back pain, and muscle pain. SKIN: Negative for lesions, rash, and itching. HEMATOLOGY/LYMPHOLOGY Negative for prolonged bleeding, bruising easily, and swollen nodes. NEURO: Negative for numbness or tingling of hands/feet. No weakness. PHYSICAL EXAMINATION: BP 136/68 Pulse 77 Temp (Src) 96.8 (Temporal) Resp 18 Ht 5' 9.764 (1.77m) Wt 291 lb (132.0kg) SpO2 96% BMI 42.04 kg/(m2). Wt 130.2 kg (287 lb) BMI 41.46 kg/m2 Last 3 Encounter Wt Readings: Date: Wt: 08/15/2019 130.2 kg (287 lb) 07/18/2019 127.4 kg (280 lb 12.8 oz) 09/19/2016 117.9 kg (260 lb) General appearance:ECOG PERFORMANCE STATUS: 0- Fully active, able to carry on all pre-disease performance w/o restriction. Patient in NAD. Skin: Skin color, texture, turgor normal. No rashes or lesions. Eyes: Anicteric sclera. Pupils are equally round and reactive to light. Extraocular movements are intact. Lymph Nodes: No cervical, supraclavicular, axillary or inguinal adenopathy. Oropharynx: Lips, mucosa, and tongue normal. Back: No pain to percussion. Negative SLR test Lungs clear to auscultation, No wheezing or rhonchi Heart: RRR without murmur, gallop, or rubs. Abdomen soft, non-tender. No masses, organomegaly Extremities: No deformities. No edema Neuro: Gait and speech normal. Reflexes normal and symmetric. Muscular strength intact. Sensation grossly intact. Rectal: Deferred : Deferred LABS: Glucose (mg/dL) Date Value 04/22/2023 133 10/21/2019 Requisitioning entry error Potassium (mmol/L) Date Value 04/22/2023 3.8 10/21/2019 Requisitioning entry error Sodium (mmol/L) Date Value 04/22/2023 136 10/21/2019 Requisitioning entry error Chloride (mmol/L) Date Value 04/22/2023 105 10/21/2019 Requisitioning entry error CO2 (mmol/L) Date Value 04/22/2023 23 10/21/2019 Requisitioning entry error Creatinine (mg/dL) Date Value 04/22/2023 1.11 10/21/2019 Requisitioning entry error BUN (mg/dL) Date Value 04/22/2023 12 10/21/2019 Requisitioning entry error Anion Gap (mmol/L) Date Value 04/22/2023 8 10/21/2019 Requisitioning entry error Calcium (mg/dL) Date Value 10/21/2019 Requisitioning entry error Calcium, Total (mg/dL) Date Value 04/22/2023 9.4 Protein, Total (g/dL) Date Value 04/22/2023 6.4 10/21/2019 Requisitioning entry error Albumin (g/dL) Date Value 04/22/2023 4.1 10/21/2019 Requisitioning entry error Bilirubin, Total (mg/dL) Date Value 04/22/2023 0.6 10/21/2019 Requisitioning entry error Alkaline Phosphatase (U/L) Date Value 04/22/2023 77 10/21/2019 Requisitioning entry error AST (U/L) Date Value (more content not included)...[facility]07-12-2023 History of Present illness Narrative* Anselmo Mcpherson MD - 04/22/2023 3:44 PM EDT PATIENT NAME: Eben Arenas [facility] NO.: [id number] ATTENDING PHYSICIAN: Anselmo Mcpherson MD DATE OF SERVICE: December 17, 2022 Some of the elements of this note have been copied from my previous progress note dated 08/27/2022.All the information has been reviewed carefully. Dear Dr. APONTE here is an update on a follow up visit on male Eben Arenas at the clinic December Diagnosis: 1. 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 HPI: Eben Arenas is a 62 year old year old male here for follow up. He states that when is red cell count is up he feels tired and denies any Hernandez and or visual changes and or itching. Continues with testosterone use and also was noted tohave an elevated Insulin level PAST MEDICAL HISTORY Diagnosis Date Former smoker HLD (hyperlipidemia) CHITIMACHA (hard of hearing) HTN (hypertension) Long-term use of aspirin therapy OA (osteoarthritis) of knee Polycythemia S/P right knee arthroscopy TIA (transient ischemic attack) Social History Tobacco Use Smoking status: Former Passive exposure: Past Smokeless tobacco: Former Types: Chew Quit date: 09/12/2016 Tobacco comments: QUIT 15 YEARS AGO Vaping Use Vaping Use: Never used Substance Use Topics Alcohol use: Yes Comment: rare Drug use: No FAMILY HISTORY Problem Relation Age of Onset Lipids Mother Hypertension Mother Hypertension Father Lipids Father Past medical, social and family history reviewed without any changes. REVIEW OF SYSTEMS GENERAL: No weight loss, malaise or fevers. No night sweats. HEENT: Negative for headaches, No changes in hearing or vision, no nose bleeds or other nasal problems. RESPIRATORY: Negative for cough, wheezing and shortness of breath CARDIOVASCULAR: Negative for chest pain, leg swelling and palpitations GI: Negative for abdominal discomfort, blood in stools or black stools and change in bowel habits : Negative for dysuria, frequency and incontinence MUSCULOSKELETAL: Negative for joint pain or swelling, back pain, and muscle pain. SKIN: Negative for lesions, rash, and itching. HEMATOLOGY/LYMPHOLOGY Negative for prolonged bleeding, bruising easily, and swollen nodes. NEURO: Negative for numbness or tingling of hands/feet. No weakness. PHYSICAL EXAMINATION: BP 136/68 Pulse 77 Temp (Src) 96.8 (Temporal) Resp 18 Ht 5' 9.764 (1.77m) Wt 291 lb (132.0kg) SpO2 96% BMI 42.04 kg/(m^2). Wt 130.2 kg (287 lb) BMI 41.46 kg/m2 Last 3 Encounter Wt Readings: Date: Wt: 08/15/2019 130.2 kg (287 lb) 07/18/2019 127.4 kg (280 lb 12.8 oz) 09/19/2016 117.9 kg (260 lb) General appearance:ECOG PERFORMANCE STATUS: 0- Fully active, able to carry on all pre-disease performance w/o restriction. Patient in NAD. Skin: Skin color, texture, turgor normal. No rashes or lesions. Eyes: Anicteric sclera. Pupils are equally round and reactive to light. Extraocular movements are intact. Lymph Nodes: No cervical, supraclavicular, axillary or inguinal adenopathy. Oropharynx: Lips, mucosa, and tongue normal. Back: No pain to percussion. Negative SLR test Lungs clear to auscultation, No wheezing or rhonchi Heart: RRR without murmur, gallop, or rubs. Abdomen soft, non-tender. No masses, organomegaly Extremities: No deformities. No edema Neuro: Gait and speech normal. Reflexes normal and symmetric. Muscular strength intact. Sensation grossly intact. Rectal: Deferred : Deferred LABS: Glucose (mg/dL) Date Value 04/22/2023 133 10/21/2019 Requisitioning entry error Potassium (mmol/L) Date Value 04/22/2023 3.8 10/21/2019 Requisitioning entry error Sodium (mmol/L) Date Value 04/22/2023 136 10/21/2019 Requisitioning entry error Chloride (mmol/L) Date Value 04/22/2023 105 10/21/2019 Requisitioning entry error CO2 (mmol/L) Date Value 04/22/2023 23 10/21/2019 Requisitioning entry error Creatinine (mg/dL) Date Value 04/22/2023 1.11 10/21/2019 Requisitioning entry error BUN (mg/dL) Date Value 04/22/2023 12 10/21/2019 Requisitioning entry error Anion Gap (mmol/L) Date Value 04/22/2023 8 10/21/2019 Requisitioning entry error Calcium (mg/dL) Date Value 10/21/2019 Requisitioning entry error Calcium, Total (mg/dL) Date Value 04/22/2023 9.4 Protein, Total (g/dL) Date Value 04/22/2023 6.4 10/21/2019 Requisitioning entry error Albumin (g/dL) Date Value 04/22/2023 4.1 10/21/2019 Requisitioning entry error Bilirubin, Total (mg/dL) Date Value 04/22/2023 0.6 10/21/2019 Requisitioning entry error Alkaline Phosphatase (U/L) Date Value 04/22/2023 77 10/21/2019 Requisitioning entry error AST (U/L) Date Value 04/22/2023 32 10/21/2019 Requisitioning entry error ALT (U/L) Date Value 04/22/2023 30 10/21/2019 Requisitioning entry error WBC Date Value Ref Range Status 04/22/2023 9.05 3.70 - 11.00 k/uL Final RBC Date Value Ref Range Status 04/22/2023 5.73 4.20 - 6.00 m/uL Final Hemoglobin Date Value Ref Range Status 04/22/2023 18.5 (H) 13.0 - 17.0 g/dL Final Hematocrit Date Value Ref Range Status 04/22/2023 54.7 (H) 39.0 - 51.0 % Final MCV Date Value Ref Range Status 04/22/2023 95.5 80.0 - 100.0 fL Final MCH Date Value Ref Range Status 04/22/2023 32.3 26.0 - 34.0 pg Final MCHC Date Value Ref Range Status 04/22/2023 33.8 30.5 - 36.0 g/dL Final RDW-CV Date Value Ref Range Status 04/22/2023 13.5 11.5 - 15.0 % Final Platelet Count Date Value Ref Range Status 04/22/2023 149 (L) 150 - 400 k/uL Final MPV Date Value Ref Range Status 04/22/2023 11.7 9.0 - 12.7 fL Final Abs Neut Date Value Ref Range Status 04/22/2023 6.07 1.45 - 7.50 k/uL Final Lymphocytes % Date Value Ref Range Status 04/22/2023 17.5 % Final Abs Lymph Date Value Ref Range Status 04/22/2023 1.58 1.00 - 4.00 k/uL Final Monocytes % Date Value Ref Range Status 04/22/2023 10.6 % Final Abs Kidder Date Value Ref Range Status 04/22/2023 0.96 (H) <0.87 k/uL Final Eosinophils % Date Value Ref Range Status 04/22/2023 3.8 % Final Abs Eosin Date Value Ref Range Status 04/22/2023 0.34 <0.46 k/uL Final Basophils % Date Value Ref Range Status 04/22/2023 0.8 % Final Abs Baso Date Value Ref Range Status 04/22/2023 0.07 <0.11 k/uL Final PATH: Imaging: Abdominal ultrasound without any evidence of splenomegaly. Question gallbladder polyp versus stone. Assessment and Plan: Eben Arenas is a 62 year old year old male here for follow up. Secondary polycythemia, secondary to testosterone use. He will not stop testosterone understanding the potential complications. Based on previous discussion will phlebotomize if hemoglobin greater than 17.5. He does monitor his own hemoglobin at home as well. Will go ahead with 1 unit of phlebotomy today Repeat labs in 4 months. Additional phlebotomy at that time if indicated Thank you for the kind referral. If there are any questions and or concerns please do not hesitate to contact me at [phone]. Anselmo Mcpherson MD Hematology/Medical Oncology [facility] CC: Julia Mcdaniels MD - (Active), In Basket (Inactive) - User (Inactive) [address] [facility] [phone] (Ph) documented [facility] Evaluation [facility]* Encounter Date Diagnosis Assessment Notes Treatment Notes Treatment Clinical Notes Apr, Type 2 diabetes mellitus with hyperglycemia, without long-term current use of insulin (ICD-10 - E11.65) Discussed labs including elevated insulin level and A1C of 6.3. He would benefit from Ozempic for glucose control and weight loss effects. Followup in 3 months. Apr, Essential (primary) hypertension (ICD-10 - I10) Well controlled on present med. Chronic problem. [facility] 06-15-2023 Evaluation note* Encounter Date Diagnosis Assessment Notes Treatment Notes Treatment Clinical Notes Mar, Type 2 diabetes mellitus with hyperglycemia, without long-term current use of insulin (ICD-10 - E11.65) [facility] 06-14-2023 Evaluation note* Encounter Date Diagnosis Assessment Notes Treatment Notes Treatment Clinical Notes Mar, Type 2 diabetes mellitus with hyperglycemia, without long-term current use of insulin (ICD-10 - E11.65) [facility] 05-30-2023 Evaluation + Plan note Diagnostic Tests Pending * Insulin Level Total 03/10/23 * PSA Screen, Total 03/10/23 [facility]05-30-2023 Evaluation note* Encounter Date Diagnosis Assessment Notes Treatment Notes Treatment Clinical Notes February, Other fatigue (ICD-10 - R53.83) Discussed metabolic causes v. MELISSA that could cause weight gain and fatigue. February, Frequent urination (ICD-10 - R35.0) r/o diabetes February, Screening PSA (prostate specific antigen) (ICD-10 - Z12.5) > 1yr since checked February, Polydipsia (ICD-10 - R63.1) f/o diabetes [facility] Other 03-08-2023 History of Present illness Narrative* Anselmo Mcpherson MD - 12/17/2022 3:16 PM EST PATIENT NAME: Eben Arenas CLINIC NO.: [id number] ATTENDING PHYSICIAN: Anselmo Mcpherson MD DATE OF SERVICE: December 17, 2022 Some of the elements of this note have been copied from my previous progress note dated 08/27/2022.All the information has been reviewed carefully. Dear Dr. APONTE here is an update on a follow up visit on male Eben Arenas at the clinic December Diagnosis: 1. 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 HPI: Eben Arenas is a 62 year old year old male here for follow up. Doing well and had R Knee replacement at the end of July 2022 and denies any new complaints PAST MEDICAL HISTORY Diagnosis Date Former smoker HLD (hyperlipidemia) CHITIMACHA (hard of hearing) HTN (hypertension) Long-term use of aspirin therapy OA (osteoarthritis) of knee Polycythemia S/P right knee arthroscopy TIA (transient ischemic attack) Social History Tobacco Use Smoking status: Former Passive exposure: Past Smokeless tobacco: Former Types: Chew Quit date: 09/12/2016 Tobacco comments: QUIT 15 YEARS AGO Vaping Use Vaping Use: Never used Substance Use Topics Alcohol use: Yes Comment: rare Drug use: No FAMILY HISTORY Problem Relation Age of Onset Lipids Mother Hypertension Mother Hypertension Father Lipids Father Past medical, social and family history reviewed without any changes. REVIEW OF SYSTEMS GENERAL: No weight loss, malaise or fevers. No night sweats. HEENT: Negative for headaches, No changes in hearing or vision, no nose bleeds or other nasal problems. RESPIRATORY: Negative for cough, wheezing and shortness of breath CARDIOVASCULAR: Negative for chest pain, leg swelling and palpitations GI: Negative for abdominal discomfort, blood in stools or black stools and change in bowel habits : Negative for dysuria, frequency and incontinence MUSCULOSKELETAL: Negative for joint pain or swelling, back pain, and muscle pain. SKIN: Negative for lesions, rash, and itching. HEMATOLOGY/LYMPHOLOGY Negative for prolonged bleeding, bruising easily, and swollen nodes. NEURO: Negative for numbness or tingling of hands/feet. No weakness. PHYSICAL EXAMINATION: There were no vitals taken for this visit. Wt 130.2 kg (287 lb) BMI 41.46 kg/m2 Last 3 Encounter Wt Readings: Date: Wt: 08/15/2019 130.2 kg (287 lb) 07/18/2019 127.4 kg (280 lb 12.8 oz) 09/19/2016 117.9 kg (260 lb) General appearance:ECOG PERFORMANCE STATUS: 0- Fully active, able to carry on all pre-disease performance w/o restriction. Patient in NAD. Skin: Skin color, texture, turgor normal. No rashes or lesions. Eyes: Anicteric sclera. Pupils are equally round and reactive to light. Extraocular movements are intact. Lymph Nodes: No cervical, supraclavicular, axillary or inguinal adenopathy. Oropharynx: Lips, mucosa, and tongue normal. Back: No pain to percussion. Negative SLR test Lungs clear to auscultation, No wheezing or rhonchi Heart: RRR without murmur, gallop, or rubs. Abdomen soft, non-tender. No masses, organomegaly Extremities: No deformities. No edema Neuro: Gait and speech normal. Reflexes normal and symmetric. Muscular strength intact. Sensation grossly intact. Rectal: Deferred : Deferred LABS: Glucose (mg/dL) Date Value 08/27/2022 93 10/21/2019 Requisitioning entry error Potassium (mmol/L) Date Value 08/27/2022 3.4 10/21/2019 Requisitioning entry error Sodium (mmol/L) Date Value 08/27/2022 139 10/21/2019 Requisitioning entry error Chloride (mmol/L) Date Value 08/27/2022 103 10/21/2019 Requisitioning entry error CO2 (mmol/L) Date Value 08/27/2022 27 10/21/2019 Requisitioning entry error Creatinine (mg/dL) Date Value 08/27/2022 0.94 10/21/2019 Requisitioning entry error BUN (mg/dL) Date Value 08/27/2022 9 10/21/2019 Requisitioning entry error Anion Gap (mmol/L) Date Value 08/27/2022 9 10/21/2019 Requisitioning entry error Calcium (mg/dL) Date Value 10/21/2019 Requisitioning entry error Calcium, Total (mg/dL) Date Value 08/27/2022 9.1 Protein, Total (g/dL) Date Value 08/27/2022 6.4 10/21/2019 Requisitioning entry error Albumin (g/dL) Date Value 08/27/2022 4.1 10/21/2019 Requisitioning entry error Bilirubin, Total (mg/dL) Date Value 08/27/2022 0.6 10/21/2019 Requisitioning entry error Alkaline Phosphatase (U/L) Date Value 08/27/2022 134 10/21/2019 Requisitioning entry error AST (U/L) Date Value 08/27/2022 26 10/21/2019 Requisitioning entry error ALT (U/L) Date Value 08/27/2022 31 10/21/2019 Requisitioning entry error WBC Date Value Ref Range Status 08/27/2022 9.18 3.70 - 11.00 k/uL Final RBC Date Value Ref Range Status 08/27/2022 4.87 4.20 - 6.00 m/uL Final Hemoglobin Date Value Ref Range Status 08/27/2022 15.8 13.0 - 17.0 g/dL Final Hematocrit Date Value Ref Range Status 08/27/2022 47.2 39.0 - 51.0 % Final MCV Date Value Ref Range Status 08/27/2022 96.9 80.0 - 100.0 fL Final MCH Date Value Ref Range Status 08/27/2022 32.4 26.0 - 34.0 pg Final MCHC Date Value Ref Range Status 08/27/2022 33.5 30.5 - 36.0 g/dL Final RDW-CV Date Value Ref Range Status 08/27/2022 13.1 11.5 - 15.0 % Final Platelet Count Date Value Ref Range Status 08/27/2022 256 150 - 400 k/uL Final MPV Date Value Ref Range Status 08/27/2022 10.6 9.0 - 12.7 fL Final Abs Neut Date Value Ref Range Status 08/27/2022 5.74 1.45 - 7.50 k/uL Final Lymphocytes % Date Value Ref Range Status 08/27/2022 20.8 % Final Abs Lymph Date Value Ref Range Status 08/27/2022 1.91 1.00 - 4.00 k/uL Final Monocytes % Date Value Ref Range Status 08/27/2022 9.7 % Final Abs Kidder Date Value Ref Range Status 08/27/2022 0.89 (H) <0.87 k/uL Final Eosinophils % Date Value Ref Range Status 08/27/2022 4.9 % Final Abs Eosin Date Value Ref Range Status 08/27/2022 0.45 <0.46 k/uL Final Basophils % Date Value Ref Range Status 08/27/2022 0.7 % Final Abs Baso Date Value Ref Range Status 08/27/2022 0.06 <0.11 k/uL Final PATH: Imaging: Abdominal ultrasound without any evidence of splenomegaly. Question gallbladder polyp versus stone. Assessment and Plan: Eben Arenas is a 62 year old year old male here for follow up. Secondary polycythemia, secondary to testosterone use. He will not stop testosterone understanding the potential complications. Based on previous discussion will phlebotomize if hemoglobin greater than 17.5. He does monitor his own hemoglobin at home as well. Repeat labs in 4 months. Additional phlebotomy at that time if indicated Thank you for the kind referral. If there are any questions and or concerns please do not hesitate to contact me at [phone]. Anselmo Mcpherson MD Hematology/Medical Oncology [facility] CC: Julia Mcdaniels MD - (Active), In Basket (Inactive) - User (Inactive) [address] [facility] [phone] (ph) documented in this encounterK[facility] History of Present illness NarrativePatient returns in follow-up of recent evaluation. As before we found his stress test and echo to be normal. Because of his complaints of palpitation and event monitor was performed demonstrating benign PACs and PVCs but no sustained ventricular or supraventricular arrhythmias, no atrial fib, no atrial flutter. This was explained to him in detail. Interestingly, he states his arrhythmia symptomatology subsided several weeks ago and has not been recurrent. Because of this I am reluctant to recommend any additional testing or changes in therapy. I advised him, though, that if he were to have increased ectopy or first maneuver would be to adjust or change his medications in a way that would increase his potassium level which I believe in turn would suppress premature extrasystoles. Otherwiseit appears to be there is no indication or need to make a change. His blood pressure is well controlled symptoms are resolved and he is active with no functional limitations whatsoever. We did, as before, advocate diet exercise and weight loss in an effort to achieve ideal body mass index.[facility] [employer] DO Work Phone: [phone] 580-880601-31-2023 History of Present illness NarrativePatient returns in follow-up of recent evaluation. As before we found his stress test and echo to be normal. Because of his complaints of palpitation and event monitor was performed demonstrating benign PACs and PVCs but no sustained ventricular or supraventricular arrhythmias, no atrial fib, no atrial flutter. This was explained to him in detail. Interestingly, he states his arrhythmia symptomatology subsided several weeks ago and has not been recurrent. Because of this I am reluctant to recommend any additional testing or changes in therapy. I advised him, though, that if he were to have increased ectopy or first maneuver would be to adjust or change his medications in a way that would inc rease his potassium level which I believe in turn would suppress premature extrasystoles. Otherwiseit appears to be there is no indication or need to make a change. His blood pressure is well controlled symptoms are resolved and he is active with no functional limitations whatsoever. We did, as before, advocate diet exercise and weight loss in an effort to achieve ideal body mass index.- [facility] [address] DO Work Phone: [phone] 944-926601-16-2023 Evaluation note* Encounter Date Diagnosis Assessment Notes Treatment Notes Treatment Clinical Notes Oct, Abnormal stress test (ICD-10 - R94.39) [facility] Other 01-05-2023 Evaluation note* Encounter Date Diagnosis Assessment Notes Treatment Notes Treatment Clinical Notes Oct, Bronchitis (ICD-10 - J40) [facility] Other 01-04-2023 Evaluation note* Encounter Date Diagnosis Assessment Notes Treatment Notes Treatment Clinical Notes Oct, Bronchitis (ICD-10 - J40) symptoms have worsened, will add abx anticipating stress test next week [facility] Other 11-16-2022 History of Present illness Narrative* Anselmo Mcpherson MD - 08/27/2022 3:19 PM EST PATIENT NAME: Eben Arenas CLINIC NO.: [id number] ATTENDING PHYSICIAN: Anselmo Mcpherson MD DATE OF SERVICE: August 27, 2022 Some of the elements of this note have been copied from my previous progress note dated 04/23/2021. All the information has been reviewed carefully. Dear Dr. APONTE here is an update on a follow up visit on male Eben Arenas at the clinic 2021 Diagnosis: 1. 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 HPI: Eben Arenas is a 61 year old year old male here for follow up. Doing well and had R Knee replacement at the end of July 2022 and doing well. PAST MEDICAL HISTORY Diagnosis Date Former smoker HLD (hyperlipidemia) CHITIMACHA (hard of hearing) HTN (hypertension) Long-term use of aspirin therapy OA (osteoarthritis) of knee Polycythemia S/P right knee arthroscopy TIA (transient ischemic attack) Social History Tobacco Use Smoking status: Former Passive exposure: Past Smokeless tobacco: Former Types: Chew Quit date: 09/12/2016 Tobacco comments: QUIT 15 YEARS AGO Vaping Use Vaping Use: Never used Substance Use Topics Alcohol use: Yes Comment: rare Drug use: No FAMILY HISTORY Problem Relation Age of Onset Lipids Mother Hypertension Mother Hypertension Father Lipids Father Past medical, social and family history reviewed without any changes. REVIEW OF SYSTEMS GENERAL: No weight loss, malaise or fevers. No night sweats. HEENT: Negative for headaches, No changes in hearing or vision, no nose bleeds or other nasal problems. RESPIRATORY: Negative for cough, wheezing and shortness of breath CARDIOVASCULAR: Negative for chest pain, leg swelling and palpitations GI: Negative for abdominal discomfort, blood in stools or black stools and change in bowel habits : Negative for dysuria, frequency and incontinence MUSCULOSKELETAL: Negative for joint pain or swelling, back pain, and muscle pain. SKIN: Negative for lesions, rash, and itching. HEMATOLOGY/LYMPHOLOGY Negative for prolonged bleeding, bruising easily, and swollen nodes. NEURO: Negative for numbness or tingling of hands/feet. No weakness. PHYSICAL EXAMINATION: BP 146/80 Pulse 79 Temp (Src) 97.9 (Temporal) Resp 18 Ht 5' 9.764 (1.77m) Wt 284 lb (128.8kg) SpO2 94% BMI 41.03 kg/(m^2). Wt 130.2 kg (287 lb) BMI 41.46 kg/m2 Last 3 Encounter Wt Readings: Date: Wt: 08/15/2019 130.2 kg (287 lb) 07/18/2019 127.4 kg (280 lb 12.8 oz) 09/19/2016 117.9 kg (260 lb) General appearance:ECOG PERFORMANCE STATUS: 0- Fully active, able to carry on all pre-disease performance w/o restriction. Patient in NAD. Skin: Skin color, texture, turgor normal. No rashes or lesions. Eyes: Anicteric sclera. Pupils are equally round and reactive to light. Extraocular movements are intact. Lymph Nodes: No cervical, supraclavicular, axillary or inguinal adenopathy. Oropharynx: Lips, mucosa, and tongue normal. Back: No pain to percussion. Negative SLR test Lungs clear to auscultation, No wheezing or rhonchi Heart: RRR without murmur, gallop, or rubs. Abdomen soft, non-tender. No masses, organomegaly Extremities: No deformities. No edema Neuro: Gait and speech normal. Reflexes normal and symmetric. Muscular strength intact. Sensation grossly intact. Rectal: Deferred : Deferred LABS: Glucose (mg/dL) Date Value 08/27/2022 93 10/21/2019 Requisitioning entry error Potassium (mmol/L) Date Value 08/27/2022 3.4 10/21/2019 Requisitioning entry error Sodium (mmol/L) Date Value 08/27/2022 139 10/21/2019 Requisitioning entry error Chloride (mmol/L) Date Value 08/27/2022 103 10/21/2019 Requisitioning entry error CO2 (mmol/L) Date Value 08/27/2022 27 10/21/2019 Requisitioning entry error Creatinine (mg/dL) Date Value 08/27/2022 0.94 10/21/2019 Requisitioning entry error BUN (mg/dL) Date Value 08/27/2022 9 10/21/2019 Requisitioning entry error Anion Gap (mmol/L) Date Value 08/27/2022 9 10/21/2019 Requisitioning entry error Calcium (mg/dL) Date Value 10/21/2019 Requisitioning entry error Calcium, Total (mg/dL) Date Value 08/27/2022 9.1 Protein, Total (g/dL) Date Value 08/27/2022 6.4 10/21/2019 Requisitioning entry error Albumin (g/dL) Date Value 08/27/2022 4.1 10/21/2019 Requisitioning entry error Bilirubin, Total (mg/dL) Date Value 08/27/2022 0.6 10/21/2019 Requisitioning entry error Alkaline Phosphatase (U/L) Date Value 08/27/2022 134 10/21/2019 Requisitioning entry error AST (U/L) Date Value 08/27/2022 26 10/21/2019 Requisitioning entry error ALT (U/L) Date Value 08/27/2022 31 10/21/2019 Requisitioning entry error WBC Date Value Ref Range Status 08/27/2022 9.18 3.70 - 11.00 k/uL Final RBC Date Value Ref Range Status 08/27/2022 4.87 4.20 - 6.00 m/uL Final Hemoglobin Date Value Ref Range Status 08/27/2022 15.8 13.0 - 17.0 g/dL Final Hematocrit Date Value Ref Range Status 08/27/2022 47.2 39.0 - 51.0 % Final MCV Date Value Ref Range Status 08/27/2022 96.9 80.0 - 100.0 fL Final MCH Date Value Ref Range Status 08/27/2022 32.4 26.0 - 34.0 pg Final MCHC Date Value Ref Range Status 08/27/2022 33.5 30.5 - 36.0 g/dL Final RDW-CV Date Value Ref Range Status 08/27/2022 13.1 11.5 - 15.0 % Final Platelet Count Date Value Ref Range Status 08/27/2022 256 150 - 400 k/uL Final MPV Date Value Ref Range Status 08/27/2022 10.6 9.0 - 12.7 fL Final Abs Neut Date Value Ref Range Status 08/27/2022 5.74 1.45 - 7.50 k/uL Final Lymph% Date Value Ref Range Status 08/27/2022 20.8 % Final Abs Lymph Date Value Ref Range Status 08/27/2022 1.91 1.00 - 4.00 k/uL Final Kidder% Date Value Ref Range Status 08/27/2022 9.7 % Final Abs Kidder Date Value Ref Range Status 08/27/2022 0.89 (H) <0.87 k/uL Final Eosin% Date Value Ref Range Status 08/27/2022 4.9 % Final Abs Eosin Date Value Ref Range Status 08/27/2022 0.45 <0.46 k/uL Final Baso% Date Value Ref Range Status 08/27/2022 0.7 % Final Abs Baso Date Value Ref Range Status 08/27/2022 0.06 <0.11 k/uL Final PATH: Imaging: Abdominal ultrasound without any evidence of splenomegaly. Question gallbladder polyp versus stone. Assessment and Plan: Eben Arenas is a 60 year old year old male here for follow up. Secondary polycythemia, secondary to testosterone use. He will not stop testosterone understanding the potential complications. Based on previous discussion will phlebotomize if hemoglobin greater than 18. He does monitor his own hemoglobin at home as well. Repeat labs in 4 months. Additional phlebotomy at that time if indicated Thank you for the kind referral. If there are any questions and or concerns please do not hesitate to contact me at [phone]. Anselmo Mcpherson MD Hematology/Medical Oncology [facility] CC: Julia Mcdaniels MD - (Active), In Basket (Inactive) - User (Inactive) [address] [facility] [place] [address] (Ph) documented in [facility]-2022 NoteCONSULTATION CONSULTATION DATE: 08/14/2022 HISTORY OF PRESENT ILLNESS: This is a 61-year-old male returning to the clinic for a three month follow up for his chronic lower back pain. Patient's last procedure was radiofrequency ablation in his lower thoracic area, which was in December of this year. That did render him 100% relief. His last appointment was on 05/22/2022 and, at that time, he reported hi back was overall feeling well, but he was having severe bilateral knee pain. He was being followed up with Orthopedics. Since his last appointment, patient did have a right knee replacement which was done on 08/05/[address] Quesada at [facility]. The patient has significant relief and is currently in rehab. He reports zero pain today. Medications include baclofen 10 mg q.h.s., meloxicam 15 mg daily p.r.n. and multivitamin. Patient's REVIEW OF SYSTEMS / PAST MEDICAL HISTORY / ALLERGIES and IMAGES have been reviewed and they are noted on the chart. PHYSICAL EXAM: VITAL SIGNS: Blood pressure 150/85, heart rate is 62. He is 5'10 and weighs 132 kg. GENERAL IMPRESSION: Pleasant, appropriate, no acute distress. FOCUSED EXAM - BACK: Range of motion is functional in lateral rotation and flexion/extension. Paravertebral and trapezius muscles are non-spasmodic. No reproduction of spinal axial pain upon compression along the lower thoracic and lumbar facets. Liana's point is non-tender. MUSCULOSKELETAL: Motor is intact, 4/5 bilaterally. Using a cane to ambulate now, as he is post-op right total knee replacement. Slight pedal edema noted to right lower extremity. Range of motion is intact bilateral knees in flexion and extension. NEUROLOGICALLY: Radicular sensory is intact. Negative polyneuropathy. DIAGNOSIS: Bilateral knee osteoarthritis, chronic lower back pain, lumbar degenerative disc disease. PLAN: Overall the patient is doing very well and he is content with his management at this time. I reiterated to continue with his multivitamin and to add magnesium and to continue his baclofen and meloxicam prescriptions. We will see the patient in four months or sooner if indicated. Patient agrees with the plan of care and all questions were answered.[facility] 08-05-2022 Hospital Discharge instructions Patient Education 08/05/2022 13:09:36 [place] - Total Knee Arthroplasty. Revised 12/03/11. (Custom) [place], [place] [facility] DISCHARGE INSTRUCTIONS TOTAL KNEE ARTHROPLASTY INCISION CARE: Continue the every other day dressing care to the knee as instructed in the hospital for 10 days postoperatively. You may then discontinue the dressing changes. Remove the dressing lower over the legpostoperative day #3 and leave this area open to the air. Please notify the office if any increase in redness, tenderness, drainage, fever, or wound separation is noted. Compression stockings may be helpful if any significant or uncomfortable swelling in the legs is noted postoperatively. Use and removal instructions should be given by physical therapy. If the swelling is below the knee, knee high compression stockings may suffice. If this does cause swelling into the thigh region, waist high compression stockings may be beneficial as well. These can be obtained from most pharmacies, or can be obtained from the hospital or through Home Health. The mild grade compression stockings are best used initially. You may need assistance when applying or removing the compression stockings. MEDICATIONS: You may resume your home medications at the time of discharge. Pain medication as ordered. You may take up to 3,000mg of acetaminophen (Tylenol) daily. Would suggest 650- 1,000mg three times daily. Keflex (cephalexin) 500mg three times daily for the next week. Ecotrin aspirin (81mg) twice daily with food for the next 4 weeks. Pain medication has been prescribed as well. You may continue to use the pain medication every fourhours as needed. Any narcotic pain medication can cause side effects including stomach upset, constipation, or light-headedness. You should not drive or operate machinery, or use alcohol while using the narcotic pain medication. You should not use other pain medications with this prescription pain medication unless further directed by your physician. PHYSICAL THERAPY: Continue the range of motion and strengthening exercises initiated in Physical Therapy in the hospital. [facility] Discharge Instructions for TKAPage 2 Physical Therapy Cont. Continue weight bearing, as ordered, to the operated knee for four to six weeks as directed in Physical Therapy, or until your strength is improved and Physical Therapy will then allow you to progress to full weight. This will be with the use of a walker or crutches initially. After four or six weeks you may then progress to the use of one crutch, or a cane. A quad-cane is preferred as this is more stable. Physical therapy as begun in the hospital will continue at home, possible with the visitor information assistant of Home Health Physical Therapy or in the hospital as an outpatient. When you have become independent withthe physical therapy program, this will then be discontinued as a supervised program and you will be instructed to continue the physical therapy exercises at home. Your exercises are alvarado to successful rehabilitation. You should gain full extension first, hopefully before hospital discharge, then continue to do the exercises to maintain this, and gain 90 degreesflexion by one month post-op. Do the exercises daily, twice if preferred. DRIVING: Do NOT Drive FOLLOW-UP OFFICE VISIT: 4 weeks postop. Anupam Quesada, [facility] [address] [place] [address] Reviewed: 01-17 Revised 10/2308/05/2022 11:52:36 Knee [place]uff Patient Instructions - FT (CUSTOM) 08/05/2022 11:52:36 How to Use an Incentive Spirometer How To Use an Incentive Spirometer An incentive spirometer is a tool that measures how well you are filling your lungs with each breath. Learning to take long, deep breaths using this tool can help you keep your lungs clear and active. This may help to reverse or lessen your chance of developing breathing (pulmonary) problems, especially infection. You may be asked to use a spirometer: After a surgery. If you have a lung problem or a history of smoking. After a long period of time when you have been unable to move or be active. If the spirometer includes an indicator to show the highest number that you have reached, your health care provider or respiratory therapist will help you set a goal. Keep a list (log) of your progress as told by your health care provider. What are the risks? Breathing too quickly may cause dizziness or cause you to pass out. Take your time so you do not get dizzy or light-headed. If you are in pain, you may need to take pain medicine before doing incentive spirometry. It is harder to take a deep breath if you are having pain. How to use your incentive spirometer 1.Sit up on the edge of your bed or on a chair. 2.Hold the incentive spirometer so that it is in an upright position. 3.Before you use the spirometer, breathe out normally. 4.Place the mouthpiece in your mouth. Make sure your lips are closed tightly around it. 5.Breathe in slowly and as deeply as you can through your mouth, causing the piston or the ball to rise toward the top of the chamber. 6.Hold your breath for 3 5 seconds, or for as long as possible. If the spirometer includes a head men's tennis coach indicator, use this to guide you in breathing. Slow down your breathing if the indicator goes above the marked areas. 7.Remove the mouthpiece from your mouth and breathe out normally. The piston or ball will return tothe bottom of the chamber. 8.Rest for a few seconds, then repeat the steps 10 or more times. Take your time and take a few normal breaths between deep breaths so that you do not get dizzy or light-headed. Do this every 1 2 hours when you are awake. 9.If the spirometer includes a goal marker to show the highest number you have reached (best effort), use this as a goal to work toward during each repetition. 10.After each set of 10 deep breaths, cough a few times. This will help to make sure that your lungs are clear. If you have an incision on your chest or abdomen from surgery, place a pillow or a rolled-up towel firmly against the incision when you cough. This can help to reduce pain from coughing. General tips When you become able to get out of bed, walk around often and continue to cough to help clear your lungs. Keep using the incentive spirometer until your health care provider says it is okay to stop using it. If you have been in the hospital, you may be told to keep using the spirometer at home. Contact a health care provider if: You are having difficulty using the spirometer. You have trouble using the spirometer as often as instructed. Your pain medicine is not giving enough relief for you to use the spirometer as told. You have a fever. You develop shortness of breath. Get help right away if: You develop a cough with bloody mucus from the lungs (bloody sputum). You have fluid or blood coming from an incision site after you cough. Summary An incentive spirometer is a tool that can help you learn to take long, deep breaths to keep your lungs clear and active. You may be asked to use a spirometer after a surgery, if you have a lung problem or a history of smoking, or if you have been inactive for a long period of time. Use your incentive spirometer as instructed every 1 2 hours while you are awake. If you have an incision on your chest or abdomen, place a pillow or a rolled-up towel firmly against your incision when you cough. This will help to reduce pain. This information is not intended to replace advice given to you by your health care provider. Make sure you discuss any questions you have with your health care provider. Document Released: 02/08/2008 Document Revised: 10/21/2018 Document Reviewed: 08/11/2018 [employer] Patient Education 2020 [employer]. 08/05/2022 11:52:36 Post Op Patient Instructions - FT (CUSTOM) [facility]10-25-2022 Evaluation + Plan noteExtracted from: Title:Post-anesthesia - General Author:Amish Berman DO Date:08/05/22 Plan Transfer/ Discharge: Condition stable. Extracted from: Title:Pre-anesthesia - Adult Author:Amish Garzon Jr., DO Date:08/05/22 Plan [place] [employer]esthesi[employer] (ASA) physical status classification: Class III. Anesthetic Preoperative Plan Anesthesia: General. . Anesthetic plan, risks, benefits, and alternatives discussed with the patient and/or family. Patient verbalized understanding. Adverse reactions, complications, and alternatives discujssed. Consent signed and on chart.. [facility]10-19-2022 History of Present illness Narrative* Margarita Taylor PA-C - 07/30/2022 1:46 PM EDT PATIENT NAME: Eben Arenas CLINIC NO.: [id number] ATTENDING PHYSICIAN: Anselmo Mcpherson MD DATE OF SERVICE: July 30, 2022 (Elements copied from my note dated May 23, 2021, have been reviewed and updated where appropriate, and all reflect current assessment and medical decision making during today's encounter, 2021) CC: Follow up Diagnosis: 1. 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 HPI: Mr. Arenas returns for follow up. His last visit here was over a year ago. He reports that he had covid in the fall of last year and since that time he has been testing his blood at home and his hgbhas remained between 16-17. He has not required phlebotomy in over year. He remains on [id number] mg weekly. He had labs checked last week to prepare for his right TKA scheduled for next week and his hgb was 20 so he decided he should come back and be seen. He denies any headaches, dizziness, vision issues. Overall he has felt fine. M PAST MEDICAL HISTORY Diagnosis Date Former smoker HLD (hyperlipidemia) CHITIMACHA (hard of hearing) HTN (hypertension) Long-term use of aspirin therapy OA (osteoarthritis) of knee Polycythemia S/P right knee arthroscopy TIA (transient ischemic attack) Social History Tobacco Use Smoking status: Former Smokeless tobacco: Former Types: Chew Quit date: 09/12/2016 Tobacco comments: QUIT 15 YEARS AGO Vaping Use Vaping Use: Never used Substance Use Topics Alcohol use: Yes Comment: rare Drug use: No FAMILY HISTORY Problem Relation Age of Onset Lipids Mother Hypertension Mother Hypertension Father Lipids Father Past medical, social and family history reviewed without any changes. REVIEW OF SYSTEMS GENERAL: No weight loss, malaise or fevers. No night sweats. HEENT: Negative for headaches, No changes in hearing or vision, no nose bleeds or other nasal problems. RESPIRATORY: Negative for cough, wheezing and shortness of breath CARDIOVASCULAR: Negative for chest pain, leg swelling and palpitations GI: Negative for abdominal discomfort, blood in stools or black stools and change in bowel habits : Negative for dysuria, frequency and incontinence MUSCULOSKELETAL: Negative for joint pain or swelling, back pain, and muscle pain. SKIN: Negative for lesions, rash, and itching. HEMATOLOGY/LYMPHOLOGY Negative for prolonged bleeding, bruising easily, and swollen nodes. NEURO: Negative for numbness or tingling of hands/feet. No weakness. PHYSICAL EXAMINATION: BP 150/81 Pulse 71 Temp (Src) 97.5 (Temporal) Resp 20 Ht 5' 9.764 (1.77m) Wt 285 lb (129.3kg) SpO2 96% BMI 41.17 kg/(m^2). ECOG PERFORMANCE STATUS: 0- Fully active, able to carry on all pre-disease performance w/o restriction. Exam limited to gross visualization where appropriate due to COVID-19. General: Alert and oriented, no distress, pleasant and cooperative. Heart: Regular, normal S1 and S2, no murmurs, rubs, or gallops Lungs: Clear to auscultation bilaterally Skin:hyperpigmented skin Abdomen: Benign Extremities: Feet/ankles without edema, posterior tibial pulses full and symmetrical LABS: Hemoglobin (g/dL) Date Value 07/30/2022 19.4 05/23/2021 18.0 Hematocrit (%) Date Value 07/30/2022 56.3 05/23/2021 54.6 WBC (k/uL) Date Value 07/30/2022 5.38 05/23/2021 7.76 Platelet Count (k/uL) Date Value 07/30/2022 135 05/23/2021 159 PATH: Imaging: Abdominal ultrasound without any evidence of splenomegaly. Question gallbladder polyp versus stone. ASSESSMENT AND PLAN: 1. Secondary polycythemia Secondary polycythemia, secondary to testosterone use. I educated him again on the risks of using testosterone, however he refuses to stop. Today his hgb is 19.4 and I will arrange for a phlebotomy. I have asked him to return in 4 weeks for follow and repeat labs. Our goal is to keep his hgb <19. Margarita Taylor PA-C CC: Julia Mcdaniels MD - Connect (Active), In Basket (Inactive) - User (Inactive) [address] [facility] [id number] () documented in this encounterKettering [facility]08-11-2022 NoteCONSULTATION CONSULTATION DATE: 05/22/2022 This is a very pleasant and physically active 61-year-old gentleman returning to the clinic for a 3-month follow-up. He was last seen on 01/23/2022 which at that time it was follow-up from his lower thoracic RFAs. He is still experiencing 90 to 100% relief and is very pleased. He has followed up with his orthopedic surgeon regarding increased bilateral knee pain. His knees are a primary source of pain and he rates it 6 out of 10. It is increased by physical activity, changes in the weather and going up stairs. Lying done and sitting decreases his pain. His orthopedic physician started him on Meloxicam 15 mg q. day which is greatly beneficial. The patient states he has noticed some water weight gain and swelling in his ankles. He has been using [id number] diurex to help manage that, which is effective for him. In addition to meloxicam, he is on Baclofen 10 mg q.h.s. as well as a baby aspirin and multivitamins. REVIEW OF SYSTEMS, PAST MEDICAL HISTORY, ALLERGIES AND IMAGES: Have been reviewed and noted in the chart. PHYSICAL EXAM: VITAL SIGNS: Blood pressure 147/92, heart rate is 72, temperature is 97.8. Height is 70 , weighs 132.9 kg. GENERAL APPEARANCE: Pleasant, appropriate and in no acute distress. BACK: Range of motion is functional, lateral rotation and flexion/extension. Paravertebral muscles are non-spasmodic. No reproduction of spinoaxial pain noted to the lower thoracic and lumbar region upon compression of the facets. Fullness is palpated, indicative of thoracic and lumbar spondylosis. Liana's point is nontender bilaterally. MUSCULOSKELETAL: Motor is intact, 4 out of 5 bilaterally. The patient does not use an assistive device. The patient does use hardware to his right knee. Range of motion is functional and bilateral knees in flexion and extension. Slight edema and point tenderness noted to bilateral anterior medial aspect upon compression. NEUROLOGICAL: Radicular sensory is intact, +1 bilateral patellar, plus 2 Achilles reflex bilaterally. DIAGNOSIS: Bilateral knee pain, chronic lower back pain, lumbar degenerative disk disease, lumbar spondylosis. In addition to the meloxicam, the patient inquired about the possible salve to place topically on his knees. I educated him on the use of Vicks mixed with Voltaren and a warm wash cloth application on top. He is to continue with his baclofen 10 mg q.h.s. as well as heat and stretches to his lower back. He is compliant with his vitamins at this time. We will see him in three months' time unless otherwise indicated an he is in agreement to this.[facility] [id number] NoteCONSULTATION PAIN MANAGEMENT CONSULTATION HISTORY OF PRESENT ILLNESS: This is a pleasant and active, 61-year-old gentleman who returns to the clinic status post bilateral RFAs of T8, T9 and T10, T11, with his last procedure on 12/24/2021. Patient reports that he has been afforded 100% relief to both sides and feels fantastic. He states he feels like he has a new lease on life with his back feeling back and he can work without pain. He does have chronic right knee pain and osteoarthritis, and is currently under the care of Dr. Quesada at [facility]. He received a right knee steroid injection yesterday that afforded him 100% relief to that knee. The patient does continue daily exercises, a vitamin regimen and takes baclofen 10 mg q.h.s. Patient's REVIEW OF SYSTEMS / PAST MEDICAL HISTORY / ALLERGIES and IMAGES have been reviewed and they are noted on the chair. PHYSICAL EXAM: VITALS: Blood pressure 144/82, heart rate is 80. Temperature is 97.8. He is 170 tall and weighs 130 kg. FOCUSED EXAM - BACK: Range of motion is within functional limits to lateral rotation and flexion/extension. Paravertebral muscles are non-spasmodic. No reproduction of spinal axial pain to posterior compression of the thoracic and lumbar facets. MUSCULOSKELETAL: Motor is intact, 4/5 bilaterally. Range of motion to right knee is functional and full Ambulates with a steady gait. NEUROLOGICALLY: Radicular sensory is intact. Negative polyneuropathy. IMPRESSION: Lumbar degenerative disc, lumbar spondylosis and chronic right knee pain. PLAN: Overall, the patient is doing wonderful. He is looking forward to being more active as the weather turns warm. He was encouraged to continue his vitamin and exercise regimen, as well as using his inversion table. At this time, we will maintain his baclofen for him and will follow up in four months' time unless otherwise indicated. Patient agrees with plan of care and all questions answered. [facility] Signed and Approved by: JANIS MAHAN . 01/30/2022 13:59:00[facility]03-23-2022 NotePROCEDURE: XR KNEE RT 4V or > HISTORY: Pain of right knee region ; chronic pain and burning in the; no known injury COMPARISON: XR knee right 05/19/2016 FINDINGS: BONES:Marked narrowing of the medial joint space along with subchondral sclerosis. Large periarticular degenerative osteophytes involving all 3 compartments. Large degenerative enthesophyte at the quadriceps tendon insertion into the patella. Remote osteotomy and hardware repair of the medial aspect of the proximal tibia. Fracture of the inferior most screw within the hardware. SOFT TISSUES:No visible soft tissue swelling. EFFUSION:Moderate joint effusion. OTHER: Negative. IMPRESSION: 1. Marked degenerative joint disease predominantly involving the medial compartment. 2. Prior surgical revision of the proximal tibia with fracture of the distal most screw. Electronically authenticated by: WANDA CADENA Date: 2022-01-01 10:37[facility]03-23-2022 NoteCONSULTATION PAIN MANAGEMENT CONSULTATION HISTORY OF PRESENT ILLNESS: This is a pleasant and active, 61-year-old gentleman who recently had bilateral lumbar RFAs, but is being seen today at his request for right knee pain. 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 In 2015, he had a right tibial osteotomy done at the [facility] by a Dr. Mcdonough. That, per the patient, gave him great relief, but his pain over the past six months has been greatly increasing. The pain is more medial and is aggravated by walking, stairs and physical activity. Sitting, lying and using Voltaren gel helps manage his pain. Medications include Motrin 600-800 mg daily p.r.n. in addition to baclofen 10 mg q.h.s. He reports no falls and no numbness or tingling. He reports the pain as sharp and stabbing. Patient's REVIEW OF SYSTEMS / PAST MEDICAL HISTORY / ALLERGIES and IMAGES have been reviewed and they are noted in the chart. PHYSICAL EXAM: VITAL SIGNS: Blood pressure 140/88, heart rate 70, temperature is 96.6. He is 178 cm tall and weighs 130 kg. GENERAL APPEARANCE: Pleasant, in no acute distress, sitting in the chair. FOCUSED EXAM - RIGHT KNEE: No crepitus palpated. Range of motion is within functional limits to adduction and abduction, flexion/extension. No posterior pain. Pain reproduced along left medial aspect of the genicular nerve. Mild edema present anteriorly to medial and lateral portions of the patellar tendon. +1 patellar reflex. MUSCULOSKELETAL: Motor is intact, 5/5 right lower extremity and left lower extremity. NEUROLOGICAL: Radicular sensory is intact. Negative polyneuropathy. IMPRESSION: Right knee pain. PLAN: We will gain an x-ray of his right knee. In the meantime, he is to continue using Voltaren gel, but has been instructed to mix it with a menthol product, such as Biofreeze or Vicks VapoRub and to apply it twice daily to his right knee. He will be followed up in the office for his post procedure appointment on 01/23/2022, and at that time, we will review and go over his knee x-ray. Patient agrees with the plan of care and would like to proceed. [facility] Signed and Approved by: JANIS MAHAN . 01/02/2022 12:27:00[facility]02-01-2016 History general Narrative - Reported* Type Description Date Medical History hypertension Surgical History Lipoma removal 1999 Surgical History Lt. knee arthroscopy 1999 Surgical History Rt.. medial meniscus tear [facility] Other 02-01-2016 History general Narrative - Reported* Type Description Date Medical History hypertension Surgical History Lipoma removal 2000 Surgical History Lt. knee arthroscopy 1999 Surgical History Rt.. medial meniscus tear Hospitalization History SEE SURGICAL HX [facility] Other Chief complaint Narrative - ReportedEBEN ARENAS is being seen for a consultation for.[facility] 250 DO Work Phone: Evaluation + Plan note Future Appointments Appointment Date:08/05/2022 09:00:00 AM Scheduled Provider: Location:[facility] Surgical [facility] Future Appointments Appointment Date:02/01/2024 11:00:00 AM Scheduled Provider: Location:[facility] Surgical Services Appointment Type:Surgery CALL PAT FT Appointment Date:02/04/2024 01:15:00 PM Scheduled Provider: [facility] Appointment Type:Surgery FT Appointment Date:02/12/2024 01:40:00 PM Scheduled Provider:Ruben CHASE MD Location:[facility] Appointment Type:GS Post Op 15 Appointment Date:02/12/2024 02:15:00 PM Scheduled Provider:Staci Kevin PA-C Location:.[facility] Appointment Type:Pain Management - Follow Up (FT) [facility] General Surgery [place] Evaluation + Plan note Future Appointments Appointment Date:02/12/2024 01:40:00 PM Scheduled Provider:Ruben CHASE MD Location:[facility] Appointment Type:GS Post Op 15 Appointment Date:02/12/2024 02:15:00 PM Scheduled Provider:Staci Kevin PA-C Location:.Pain [facility] Appointment Type:Pain Management - Follow Up (FT) [facility] note* Diagnosis Secondary polycythemia- Primary Polycythemia, secondary documented in this encounter [facility] note* Diagnosis Polycythemia, secondary- Primary documented in this encounter [facility] noteNo assessment information [facility] Work Phone: Evaluation noteNo InformationNoFair[facility] Other Evaluation note* Diagnosis Polycythemia, secondary- Primary documented in this encounter [facility] note* Diagnosis Secondary polycythemia- Primary Polycythemia, secondary documented in this encounter [facility] note* Diagnosis Polycythemia, secondary- Primary documented in this encounter [facility] note* Diagnosis Secondary polycythemia- Primary Polycythemia, secondary documented in this encounter [facility] note* Diagnosis Abnormal EKG Nonspecific abnormal electrocardiogram (ECG) (EKG) Essential hypertension Unspecified essential hypertension Persistent atrial fibrillation (CMS/HCC) Atrial fibrillation Preoperative clearance Unspecified pre-operative examination PAC (premature atrial contraction) Supraventricular premature beats Palpitations documented in this encounter [facility] Work Phone: Evaluation note* Diagnosis Persistent atrial fibrillation (CMS/HCC) Atrial fibrillation documented in this encounter [facility] Work Phone: Evaluation note* Diagnosis Persistent atrial fibrillation (CMS/HCC) Atrial fibrillation documented in this encounter [facility] Work Phone: Evaluation note* Diagnosis Polycythemia, secondary- Primary Low testosterone in 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 disorder (HCC) Qualitative platelet defects [facility] Diagnosis Onset Date Resolution Status Atrial fibrillation and flutter acute Hypertension acute Sebaceous cyst acute [facility] Work Phone: Evaluation note* Diagnosis Onset Date Resolution Status Atrial fibrillation and flutter acute Hypertension acute Sebaceous cyst acute Chronic cough acute Chronic sinusitis acute [facility] Work Phone: History of Present illness Narrative* Patient is seen in consultation at the request of his primary care physician because of a abnormalstress test . * He is an individual who presented with complaints of palpitation and chest pain. For this he underwent stress testing with isotope imaging. It demonstrated no scar and no ischemia. It suggested a an ejection fraction of 47%. At that time he had an echocardiogram as well. It was basically normal except for a suggestion of diastolic dysfunction. * I advised the patient that there appears to be no evidence or symptoms of coronary disease or infarct. His ejection fraction is normal by echo which is more reliable. He was reassured in this regard.He does, though, question his palpitations. PACs noted on today's EKG but the possibility of other a rrhythmias exists and because of this and his high anxiety level I recommended an 30-day event monitor to capture some of the arrhythmia symptomatology that he is feeling and are noticing. We will reconvene thereafter to go over the results and determine a plan of care. In the meantime he was encouraged to attempt diet and weight loss and the favorable impact on his wellbeing was emphasized. Blood pressure for the moment acceptably controlled but the benefits of weight loss and its favorable impact on blood pressure control was explained [facility] 250 DO Work Phone: Hospital course Narrative No data available for this section [facility] No data available for this section [facility] Dis[facility] instructionsAmbulatory Orders* Referral to General Surgery Time Frame: 01/12/24, Location: [facility] Work Phone: InstructionsNot on filedocumented in this encounter [facility] No data available for this section [facility] Chief Complaint and Reason for Visit Chief Complaint m79.661 z96.651 Chief Complaint m79.661 z96.651 r07.9 Chief Complaint afib Chief Complaint afib check up Bumps on Back Reason for Visit Atrial fibrillation and flutter Hypertension Sebaceous cyst Chief Complaint check up Bumps on Back post nasal drip x3 months Reason for Visit Atrial fibrillation and flutter Hypertension Sebaceous cyst Chronic cough Chronic sinusitis Advance Directives Advance Directive Response Recorded Date/ Time Advance Directives No August 1:30pm Advance Directive Response Recorded Date/ Time Advance Directives No August 2:30pm Family History Unknown Family Member Name Dates Details No pertinent family history: Mother, Father, Sibling(V49.89, Z78.9) Status:Active Unknown Family Member Name Dates Details No pertinent family history: Mother, Father, Sibling(V49.89, Z78.9) Status:Active Unknown Family Member Name Dates Details No pertinent family history: Mother, Father, Sibling(V49.89, Z78.9) Status:Active Relationship Condition Age at Onset Recorded Date/T tyson father Unknown Not Specified Unknown Reason for Referral Reason *FU 11/26 lumbar p ain, seeing pain mgmt at [facility] second opinion Diagnosis 1 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) Referral Organization [facility] [place] Referring Provider First Name Julia Referring Provider Last Name Arslan Referring Provider Specialty Family Medi cine Referred Organization [facility] Referred Address [address] [place] [phone] Referred Provider Specialty Pain Medicin e Referral Priority Routine General Notes Tisha Rodriguez 10:39:03 AM >received today, attachments made, notes locked, referral faxed Clinical Notes p: [phone] f: [id number] Specialty Diagnoses / Procedures Referred By Contac t Referred To Contact Cardiology Diagnoses Persistent atrial fibrillation (CMS/HCC) Procedures Cardioversion External Americo Rabago MD [address] [facility] [address], [address] [address] Referral ID Status Reason Start Date Expiration Date V isits Requested Visits Authorized [id number] Pending Review 10/07/2023 10/06/2024 1 1 Specialty Diagnoses / Procedures Referred By Contac t Referred To Contact Cardiology Diagnoses Essential hypertension Persistent atrial fibrillation (CMS/HCC) Procedures Follow Up In Cardiology Americo Rabago MD [address] [facility] [address], [address] [address] Referral ID Status Reason Start Date Expiration Date V isits Requested Visits Authorized [id number] Authorized 10/07/2023 10/06/2024 1 1 Specialty Diagnoses / Procedures Referred By Contac t Referred To Contact Diagnoses Abnormal EKG Preoperative clearance Procedures ECG 12 Lead Americo Rabago MD [address] [facility] [address], [address] [address] Referral ID Status Reason Start Date Expiration Date V isits Requested Visits Authorized [id number] Pending Review 10/07/2023 10/06/2024 1 1 Reason 11/05/22 Stress an d echo completed at [facility]. Will move over last OV note from [facility] and scan it in. Thank you Diagnosis 1 Abnormal stress test (R94.39) Referral Organization [facility] miley Referring Provider First Name Julia Referring Provider Last Name Arslan Referring Provider Specialty Family [facility] Referred Organization [facility] Referred Provider Americo Rabago Referred Address [address],[address] Referred Provider Specialty Cardiology Referral Priority Routine Referral Appointment Date 2022-11-05 General Notes Tisha Rodriguez 09:28:50 AM >received today, attachments made, note locked, and referral faxed Tisha Rodriguez 11/03/2022 09:38:06 AM >faxed first attempt letter Tisha Rodriguez 11/04/2022 01:18:30 PM >received fax with appt date Tisha Rodriguez 11/06/2022 11:25:15 AM >faxed first request for consult notes Tisha Rodriguez 11/11/2022 04:41:40 PM >notes in chart and reviewed. closing referral atthis time. Summary Purpose Chief Complaint EBEN ARENAS is being seen for Testing results.EBEN ARENAS is being seen for Testing results. Additional Source Comments Patient Care team informatio n (unrecognized section and content) Physician'S Aide Relationship Specialty Start Date End Date Julia Mcdaniels MD [address] [place] [address] PCP - General Family Medicine 08/26/16 Physician'S Aide Relationship Specialty Start Date End Date Julia Mcdaniels MD [address] [place] [address] PCP - General Family Medicine 08/26/16 Team Status: Inactive Member Role Status Dates Anupam Quesada DO Attending Provider Active Julia Mcdaniels MD Primary Care Provider Active Team Status: Active Member Role Status Dates Julia Mcdaniels MD Primary Care Provider Active Team Status: Inactive Member Role Status Dates Julia Mcdaniels MD Primary Care Provider, Attending Vi june Active W Song Segovia DO Referring Provider Active Physician'S Aide Relationship Specialty Start Date End Date Julia Mcdaniels MD [address] [facility] [place] [phone] PCP - General Family Medicine 08/26/16 Physician'S Aide Relationship Specialty Start Date End Date Julia Mcdaniels MD [address] [place] [address] PCP - General Family Medicine 08/26/16 Physician'S Aide Relationship Specialty Start Date End Date Julia Mcdaniels MD [address] [facility] [place] [phone] PCP - General Family Medicine 08/26/16 Physician'S Aide Relationship Specialty Start Date End Date Julia Mcdaniels MD [address] [facility] [place] [phone] PCP - General Family Medicine 08/26/16 Physician'S Aide Relationship Specialty Start Date End Date Julia Mcdaniels MD [address] [facility] [place] [address] PCP - General Family Medicine 08/26/16 Physician'S Aide Relationship Specialty Start Date End Date Julia Mcdaniels MD [address] [facility] [place] [phone] PCP - General Family Medicine 08/26/16 Physician'S Aide Relationship Specialty Start Date End Date Julia Mcdaniels MD [address] [place] [address] PCP - General Family Medicine 10/07/23 Physician'S Aide Relationship Specialty Start Date End Date Julia Mcdaniels MD [address] [place] [address] PCP - General Family Medicine 10/07/23 Physician'S Aide Relationship Specialty Start Date End Date Julia Mcdaniels MD [address] [place] [address] PCP - General Family Medicine 10/07/23 Team Status: Inactive Member Role Status Dates Julia Mcdaniels MD Primary Care Provider Active Start: November 04, 2023 End: November 04, 2023 Americo Rabago MD Attending Provider, Referring Provider Active Start: November 04, 2023 End: November 04, 2023 Physician'S Aide Relationship Specialty Start Date End Date Julia Mcdaniels MD [address] [place] [phone] PCP - General Family Medicine 08/26/16 Team Status: Inactive Member Role Status Dates Julia Mcdaniels MD Primary Care Provide r, Attending Provider Active Start: December 08, 2023 End: December 08, 2023 Team Status: Active Member Role Status Dates Julia Mcdaniels MD Primary Care Provide r, Attending Provider Active Start: December 29, 2023 Team Status: Inactive Member Role Status Dates Julia Mcdaniels MD Primary Care Provide r, Attending Provider Active Start: January 12, 2024 End: January 12, 2024 Physician'S Aide Relationship Specialty Start Date End Date Julia Mcdaniels MD [address] [place] [phone] PCP - General Family Medicine 09/25/21 Team Status: Inactive Member Role Status Dates Julia Mcdaniels MD Primary Care Provide r, Attending Provider Active Start: February 17, 2024 End: February 17, 2024 Physician'S Aide Relationship Specialty Start Date End Date Julia Mcdaniels MD [address] [place] [phone] PCP - General Family Medicine 08/26/16 Physician'S Aide Relationship Specialty Start Date End Date Jluia Mcdaniels MD [address] [place] [phone] PCP - General Family Medicine 08/26/16 Source Comments (unrecognize d section and content) In the event this informatio n is protected by the Federal Confidentiality of Alcohol and Drug Abuse Patient Records regulations: The Federal rules restrict any use of the information to criminally investigate or prosecute any alcohol or drug abuse patient.[facility] the event this information is protected by the Federal Confidentiality of Alcohol and Drug Abuse Patient Records regulations: The Federal rules restrict any use of the information to criminally investigate or prosecute any alcohol or drug abuse patient.[facility] the event this information is protected by the Federal Confidentiality of Alcohol and Drug Abuse Patient Records regulations: The Federal rules restrict any use of the information to criminally investigate or prosecute any alcohol or drug abuse patient.[facility] the event this information is protected by the Federal Confidentiality of Alcohol and Drug Abuse Patient Records regulations: The Federal rules restrict any use of the information to criminally investigate or prosecute any alcohol or drug abuse patient.[facility] the event this information is protected by the Federal Confidentiality of Alcohol and Drug Abuse Patient Records regulations: The Federal rules restrict any use of the information to criminally investigate or prosecute any alcohol or drug abuse patient.[facility] the event this information is protected by the Federal Confidentiality of Alcohol and Drug Abuse Patient Records regulations: The Federal rules restrict any use of the information to criminally investigate or prosecute any alcohol or drug abuse patient.[facility] the event this information is protected by the Federal Confidentiality of Alcohol and Drug Abuse Patient Records regulations: The Federal rules restrict any use of the information to criminally investigate or prosecute any alcohol or drug abuse patient.[facility] the event this information is protected by the Federal Confidentiality of Alcohol and Drug Abuse Patient Records regulations: The Federal rules restrict any use of the information to criminally investigate or prosecute any alcohol or drug abuse patient.[facility] the event this information is protected by the Federal Confidentiality of Alcohol and Drug Abuse Patient Records regulations: The Federal rules restrict any use of the information to criminally investigate or prosecute any alcohol or drug abuse patient.[facility] the event this information is protected by the Federal Confidentiality of Alcohol and Drug Abuse Patient Records regulations: The Federal rules restrict any use of the information to criminally investigate or prosecute any alcohol or drug abuse patient.[facility] the event this information is protected by the Federal Confidentiality of Alcohol and Drug Abuse Patient Records regulations: The Federal rules restrict any use of the information to criminally investigate or prosecute any alcohol or drug abuse patient.[facility] the event this information is protected by the Federal Confidentiality of Alcohol and Drug Abuse Patient Records regulations: The Federal rules restrict any use of the information to criminally investigate or prosecute any alcohol or drug abuse patient.[facility] the event this information is protected by the Federal Confidentiality of Alcohol and Drug Abuse Patient Records regulations: The Federal rules restrict any use of the information to criminally investigate or prosecute any alcohol or drug abuse patient.[facility]In the event this information is protected by the Federal Confidentiality of Alcohol and Drug Abuse Patient Records regulations: The Federal rules restrict any use of the information to criminally investigate or prosecute any alcohol or drug abuse patient.[facility] DaytonIn the event this information is protected by the Federal Confidentiality of Alcohol and Drug Abuse Patient Records regulations: The Federal rules restrict any use of the information to criminally investigate or prosecute any alcohol or drug abuse patient.[facility] DaytonIn the event this information is protected by the Federal Confidentiality of Alcohol and Drug Abuse Patient Records regulations: The Federal rules restrict any use of the information to criminally investigate or prosecute any alcohol or drug abuse patient.[facility] Reason for Visit (unrecogniz ed section and content) Reason Comments Follow-up EKG visit Specialty Diagnoses / Procedures Referred By Contac t Referred To Contact Diagnoses Persistent atrial fibrillation (CMS/HCC) Procedures ECG 12 Lead Americo Rabago MD [address] [facility] 2, [address] [address] Referral ID Status Reason Start Date Expiration Date V isits Requested Visits Authorized [id number] Authorized 10/22/2023 10/21/2024 1 1 Reason Comments Polycythemia, secondary Reason Comments polycythemia Treatment visit Reason Comments polycythemia Treatment visit Reason Comments Appointment Reason Comments Patient Question Reason Comments Follow-up POC with EKG Reason Comments EKG visit Referral ID Status Reason Start Date Expiration Date V isits Requested Visits Authorized [id number] Pending Review 10/19/2023 10/18/2024 1 1 Reason Comments Polycythemia OTV Goals (unrecognized section and content) Goals may be documented in a n alternate section (unrecognized sect ion and content) No Status Records FoundNo Status Records FoundNo Status Records FoundNo Status Records FoundNo Status Records FoundNo Status Records FoundNo Status Records FoundNo Status Records FoundNo Status Records FoundNo Status Records FoundNo Status Records Found INFORMATION SOURCE (unrecogn ized section and content) DATE CREATED AUTHOR [facility]2022 [facility] DATE CREATED AUTHOR AUTHOR'S ORGANIZ ATION 12/31/2022 [employer] DATE CREATED AUTHOR AUTHOR'S ORGANIZ ATION 02/07/2023 [facility] DATE CREATED AUTHOR AUTHOR'S ORGANIZ ATION 09/11/2023 [facility] DATE CREATED AUTHOR AUTHOR'S ORGANIZ ATION 10/01/2023 [facility] DATE CREATED AUTHOR AUTHOR'S ORGANIZ ATION 11/23/2023 [facility] DATE CREATED AUTHOR AUTHOR'S ORGANIZ ATION 01/22/2024 [facility] DATE CREATED AUTHOR AUTHOR'S ORGANIZ ATION 03/14/2024 [facility] DATE CREATED AUTHOR AUTHOR'S ORGANIZ ATION 03/23/2024 [facility] DATE CREATED AUTHOR AUTHOR'S ORGANIZ ATION 03/27/[address] [place] [address] Ambulatory DATE CREATED AUTHOR AUTHOR'S ASHLEY SANCHEZ 04/02/2024 [facility] FOR RECORDS PERTAINING TO PATIENTS WHO ARE OR HAVE BEEN ENROLLED IN A CHEMICAL DEPENDENCY/SUBSTANCEABUSE PROGRAM, SOME INFORMATION MAY BE OMITTED. This clinical summary was aggregated from multiple sources. Caution should be exercised in using it in the provision of clinical care. This summary normalizes information from multiple sources, and as a consequence, information in this document may materially change the coding, format and clinical context of patient data. In addition, data may be omitted in some cases. CLINICAL DECISIONS SHOULD BE BASED ON THE PRIMARY CLINICAL RECORDS. [facility] [employer] [facility]. provides no warranty or guarantee of the accuracy or completeness of information in this document.
== END 2024-04-12 10:00 | disposition home or self-care (01) ==
PROVIDERS: PCP Student in an Organized Health Care Education/Training Program; Visit Provider Student in an Organized Health Care Education/Training Program
DX: I73.9 Peripheral vascular disease, unspecified (principal); I65.23 Occlusion and stenosis of bilateral carotid arteries
CPT/HCPCS: 93880; 93923

== ENCOUNTER 2024-11-01 14:32 | Outpatient (OUT) | payer MEDICARE, BC, SELFPAY ==
--- NOTE | 2024-11-01 14:42 | MR_ITS ---
The [address] [address] Patient Name: ALIA ARENAS MRN: [id number] date: 1960 Sex: M Assigned Patient Location: MRI Current Patient Location: MRI Accession/Order Number: [id number] Exam Date: 11/01/2024 14:55 Report Date: 11/01/2024 15:59 At the request of: JULIA MCDANIELS Procedure: MR head/brain wo con EXAM: MR head/brain wo con HISTORY: Transient Diplopia COMPARISON: None. TECHNIQUE: MRI of the brain was performed without contrast. FINDINGS: There is no restricted diffusion to suggest acute infarct. There is no midline shift, mass effect, or abnormal extraaxial fluid collections. There is age appropriate mild generalized cerebral and cerebellar atrophy. There are a few tiny T2 bright foci in the supratentorial white matter. The major intracranial flow voids are visualized. The cerebellar tonsils are normal in position. The orbits are unremarkable. The paranasal sinuses show no air-fluid level. There is mild mucosal thickening of right maxillary sinus, ethmoid air cells and a small polyp within left maxillary sinus. The mastoid air cells are clear. The calvarium and extracranial soft tissues are unremarkable. MR/MR head/brain wo con IMPRESSION: No acute intracranial abnormality identified. Mild generalized atrophic and minimal chronic microvascular ischemic changes. Electronically authenticated by: KP KAPLAN Date: 11/01/2024 15:59
== END 2024-11-01 14:33 | disposition home or self-care (01) ==
LOC: MRI 14:32
PROVIDERS: PCP Family Medicine; Visit Provider Family Medicine
DX: H53.2 Diplopia (principal)
CPT/HCPCS: 70551

== ENCOUNTER 2025-07-24 14:04 | Outpatient (OUT) | payer MEDICARE, BC, SELFPAY ==
--- NOTE | 2025-07-24 14:11 | XR_ITS ---
The [place] [id number] Patient Name: ALIA ARENAS MRN: [id number] date: 1960 Sex: M Assigned Patient Location: [facility] Current Patient Location: [facility] Accession/Order Number: [id number] Exam Date: 07/24/2025 14:13 Report Date: 07/24/2025 20:36 At the request of: JULIA MCDANIELS MD Procedure: XR chest 2V XR chest 2V 07/24/2025 2:19 PM SIGNS AND SYMPTOMS: Cough and wheezing PROTOCOL: Frontal and lateral radiograph of the chest Comparison: 06/30/2021 FINDINGS: The trachea is midline. The heart and mediastinal structures are within normal limits. The lung parenchyma is clear. Areas a dextro convex curvature of the thoracic spine. Degenerative changes are noted in the shoulders and thoracic spine. XR/XR chest 2V IMPRESSION: No acute cardiopulmonary pathology. Impression dictated by: Abhinav Benjamin M.D. 07/24/2025 8:36 PM Dictation Location: [place] [address] Electronically authenticated by: [id number] Y Date: 07/24/2025 20:36
--- OUTSIDE RECORDS SUMMARY | 2025-07-24 14:11 | XMS_ITS | CCD ---
Author Organization [facility] Care Team Providers Care Rotary Drier Name Role Phone JULIA MCDANIELS Primary Care Physician Julia Mcdaniels MD Primary Care Provider DO Anupam Quesada Attending Provider [phone] MD Julia Mcdaniels Primary Care Provider [phone] MD Julia Mcdaniels Attending Provider DO Bree Segovia Referring Provider Julia Mcdaniels [...] Care Unavailable ABBAS, DR ROD Consulting Unavailable WEST, DR BO V Consulting Unavailable MAHAN .JANIS Admitting Unavailable MAHAN .JANIS Attending Unavailable JULIA MCDANIELS Primary Care Unavailable Wanda Cadena Consulting Unavailable MAHAN ., JANIS Consulting Unavailable AMIN ., DR ROMAN Garcia Admitting Unavailable AMIN ., DR ROMAN Garcia Attending Unavailable JULIA MCDANIELS Primary Care Unavailable MAHNA ., JANIS Consulting Unavailable AMIN ., DR ROMAN Gracia Admitting Unavailable ELOISA ., DR ROMAN Garcia [...] McGuinn II, Dr. Americo Leblanc Attending Unavailable Arslan, Dr. Julia Donohue Primary Care Unav ailable Arslan, Dr. Julia Donohue Primary Care Unav ailable Luca, Americo Attending Unavailable McGuinn II, Dr. Americo Leblanc Attending Unavailable McGuinn II, Dr. Americo Leblanc Referring Unavailable Mcdaniels, Dr. Julia Donohue Primary Care Unav ailable Lanreuinn II, Dr. Americo Leblanc Attending Unavailable McGuinn II, Dr. Americo Leblanc Referring Unavailable Mcdaniels, Dr. Julia Donohue Primary Care Unav carmenable Qamar JAVIER, Torres Castañeda Attending [...] BREWER Attending Unavailable JULIA MCDANIELS Referring Unavailable MCDANIELS, JULIA E Primary Care Unavailable SUKUMAR BREWER Attending Unavailable JULIA MCDANIELS E Referring Unavailable ARSLAN, JULIA E Primary Care Unavailable KARAMLOU, ANSELMO Referring Unavailable ARSLAN, JULIA E Primary Care Unavailable JULIA MCDANIELS Admitting Unavailable MCDANIELSJULIA Attending Unavailable MCDANIELS, JULIA Referring Unavailable Pocos, Anupam Anand Admitting Unavailable Pocos, Anupam Anand Attending Unavailable Pocos, Anupam Anand Referring Unavailable Pocos, Anupam Anand Admitting Unavailable Pocos, Anupam Anand Attending Unavailable NILL, Ruben Martniez Attending Unavailable NILL, Ruben Martinez Attending Unavailable Pocos, Anupam Anand Admitting Unavailable Pocos, Anupam Anand Attending Unavailable Kevin, Staci Attending Unavailable MCDANIELS, JULIA Referring Unavailable Kevin, Staci Attending Unavailable MCDANIELS, JULIA Referring Unavailable Kevin, ELIAS Staci Admitting Unavailabl e Kevin, Staci Attending Unavailable MCDANIELS, JULIA Referring Unavailable Kevin, ELIAS Staci Admitting Unavailabl e Kevin, Staci Attending Unavailable MCDANIELS, JULIA Referring Unavailable NILL, Ruben Martinez Admitting Unavailable NILL, Ruben Martinez Attending Unavailable NILL, Ruben Martinez Referring Unavailable David Cao. Attending Unavailable David Cao Referring Unavailable DO David Cao Admitting Unavailabl e David Cao Attending Unavailable David Cao. Referring Unavailable DO David Cao Admitting Unavailabl e David Cao Attending Unavailable David Cao Referring Unavailable David Coa Referring Unavailable David Cao Attending Unavailable JULIA MCDANIELS Admitting Unavailable JULIA MCDANIELS Attending Unavailable Julia Mcdaniels MD Primary Care Provider [phone] Julia Mcdaniels MD Primary Care Provider Moise JAVIER Maribeth Unavailable JULIA MCDANIELS Primary Care Unavailable JULIA MCDANIELS Primary Care Unavailable KARAMLOU, ANSELMO Attending Unavailable JULIA MCDANIELS Primary Care Unavailable KARAMLOU, ANSELMO Attending Unavailable KARAMLOU, ANSELMO Referring Unavailable JULIA MCDANIELS E Primary Care Unavailable KARAMLOU, ANESLMO Referring Unavailable JULIA MCDANIELS E Primary Care Unavailable MARGARITA TAYLOR Attending Unavailable KARAMLOU, ANSELMO Referring Unavailable JULIA MCDANIELS E Primary Care Unavailable KARAMLOU, ANSELMO Referring Unavailable JULIA MCDANIELS E Primary Care Unavailable JULIA MCDANIELS E Primary Care Unavailable JULIA MCDANIELS E Primary Care Unavailable MACKENZIE HOPSON Attending Unavailable MACKENZIE HOPSON Referring Unavailable JULIA MCDANIELS Primary Care Unavailable JULIA MCDANIELS Primary Care Unavailable Julia Mcdaniels MD Primary Care Provider Sarabjit Moore. Attending Unavailable Pocos, Anupam Anand Admitting Unavailable Pocos, Anupam Anand Attending Unavailable Pocos, Anupam Anand Referring Unavailable Kevin, Staci Admitting Unavailable Kevin, Staci Attending Unavailable ARSLAN, JULIA Referring Unavailable ARSLAN, JULIA Admitting Unavailable ARSLAN, JULIA Attending Unavailable Maribeth Phipps MD Unavailable Julia Mcdaniels MD Primary Care Provider Pocos, Anupam Anand Referring Unavailable Pocos, Anupam Anand Admitting Unavailable Pocos, Anupam Anand Attending Unavailable Pocos, Anupam Anand Referring Unavailable Pocos, Anupam Anand Admitting Unavailable Pocos, Anupam Anand Attending Unavailable Pocos, Anupam Anand Admitting Unavailable Pocos, Anupam Anand Attending Unavailable Pocos, Anupam Anand Referring Unavailable Pocos DO, Anupam Anand Unavailable JULIA MCDANIELS Primary Care Unavailable AC LAIRD Attending Unavailable AC LAIRD Referring Unavailable Julia Mcdaniels MD Primary Care Provider [phone] Julia Mcdaniels MD Primary Care Provider Julia Mcdaniels MD Attending Provider POCOS, ANUPAM Anand Referring Unavailable POCOS, ANUPAM Anand Attending Unavailable POCOS, ANUPAM Anand Referring Unavailable POCOS, ANUPAM Anand Attending Unavailable POCOS, ANUPAM Anand Referring Unavailable POCOS, ANUPAM Anand Attending Unavailable POCOS, ANUPAM Anand Referring Unavailable POCOS, ANUPAM Anand Referring Unavailable POCOS, ANUPAM Anand Attending Unavailable POCOS, ANUPAM Anand Referring Unavailable POCOS, ANUPAM Anand Attending Unavailable POCOS, ANUPAM Anand Referring Unavailable POCOS, ANUPAM Anand Referring Unavailable POCOS, ANUPAM Anand Attending Unavailable POCOS, ANUPAM Anand Referring Unavailable POCOS, ANUPAM Anand Referring Unavailable POCOS, ANUPAM Anand Attending Unavailable POCOS, ANUPAM Anand Referring Unavailable Julia Mcdaniels MD Primary Care Provider Zohaib Borja MD Unavailable ZOHAIB BORJA Attending Unavailable JULIA MCDANIELS Primary Care Unavailable MARIBETH PHIPPS Attending Unavailable MOISE, MARIBETH Referring Unavailable JULIA MCDANIELS Primary Care Unavailable MARIBETH PHIPPS Attending Unavailable JULIA MCDANIELS Primary Care Unavailable MARIBETH PHIPPS Referring Unavailable Allergies Allergy Classification Reported Allergen(s) Allergy Type Date of Onset Reaction(s) Facility (20 sources) LORazepam; Translations: [lorazepam] Drug Allergy 3 Other: See Comments, Dizziness, Dizziness (finding) [facility] (2 sources) LORazepam Drug Allergy 3 [facility] Repository (20 sources) ezetimibe / Simvastatin; Translations: [ezetimibe-simv astatin] Drug Allergy 2 Unknown, Weal (disorder) [facility] (20 sources) lamoTRIgine; Translations: [lamotrigine] Drug Allergy 2 Mental Status Change, Feeling agitated (finding) [facility] (6 sources) ezetimibe Drug Allergy 3 [facility] Repository (1 source) lamoTRIgine Drug Allergy 3 [facility] Repository (1 source) LORazepam Drug Allergy 3 [facility] Repository (6 sources) Simvastatin Drug Allergy 3 [facility] Repository (3 sources) ezetimibe / Simvastatin; Translations: [EZETIMIBE-SIMV ASTATIN] Drug Allergy 2 [facility] Repository (5 sources) ezetimibe / Simvastatin; Translations: [Vytorin] Drug Allergy [facility] Repository (5 sources) lamoTRIgine; Translations: [LaMICtal] Drug Allergy [facility] Repository (18 sources) ezetimibe Drug Allergy 4 [facility] (18 sources) Lamotrigine Propensity to adverse reactions 2 [facility] (18 sources) Lorazepam Allergy to substance 3 [facility] (2 sources) oxyCODONE Drug Allergy 5 Other [facility] Medications Current Medications Medication Drug Class(es) Dates Sig (Normalized) Sig (Original) 0.25 MG, 0.5 MG Dose 3 ML semaglutide 0.68 MG/ML Pen Injector [Ozempic] (2 sources) inject 0.5 mg by subcutaneous injection every week Ozempic (0.25 or 0.5 MG/DOSE) 2 MG/3ML 0.5mg Subcutaneous weekly for 30 days Active acetaminophen 325 mg / oxyCODONE hydrochloride 5 mg oral tablet (1 source) Opioid Agonist Start: 10-19-2024 End: 10-22-2024 Percocet 5 mg-325 mg oral tablet 1 tab(s), Oral, q6hr for 3 day(s), 12 tab(s), Refill(s) 0, [id number], 177, cm, 10/19/24 14:21:00 EST, Height/Length Dosing, 126.2, kg, 10/19/24 14:21:00 EST, Weight Dosing Start Date: 10/19/24 Stop Date: 10/22/24 Status: Ordered amoxicillin 500 mg oral capsule (5 sources) Penicillin-class Antibacterial Start: 06-10-2024 amoxicillin 500 mg Cap 500 mg = 1 cap(s), Refills(s) 0 Start Date: 06/10/24 Status: Ordered Start: 01-13-2024 End: 02-17-2024 take 2 tablets by mouth twice daily Amoxicillin 500 mg tablet Discontinued 1000 MG PO Twice daily January 13, 2024 12:00am February 17, 2024 11:23am Start: 01-13-2024 End: 02-17-2024 take 1000 mg by mouth twice daily Amoxicillin Discontinued 1000 MG PO Twice daily January 13, 2024 12:00am February 17, 2024 11:23am apixaban 5 mg oral tablet (20 sources) Factor Xa Inhibitor Start: 10-07-2023 End: 01-05-2026 take 1 tablet by mouth twice daily apixaban (Eliquis) 5 mg tablet Indications: Persistent atrial fibrillation (Multi) Take 1 tablet (5 mg) by mouth 2 times a day. 180 tablet 3 01/05/2025 01/05/2026 Active Comment on above: Take 5 mg by mouth. Aspirin 81 mg Tab-EC (3 sources) Start: 08-05-2022 Aspirin 81 mg Tab-EC 81 mg = 1 tab(s), Oral, BIDPC, # 60 tab(s), Refills(s) 0, Pharmacy: [facility]/pharmacy #[id number], 177, cm, 07/18/22 10:25:00 EDT, Height/Length Dosing, 131.4, kg, 07/18/22 10:25:00 EDT, Weight Dosing Start Date: 08/05/22 Status: Ordered baclofen 10 mg oral tablet (20 sources) gamma-Aminobutyri c Acid-ergic Agonist Start: 09-25-2021 take 1 tablet by mouth three times daily Baclofen 10 mg tablet Active 10 MG PO Three times daily November 03, 2023 1:00am Complies with drug therapy Start: 09-25-2021 take 1 tablet by toyin th at bedtime as needed for muscle spasms baclofen 10 mg Tab 10 mg = 1 tab(s), Oral, Bedtime, PRN Spasm, # 30 tab(s), Refills(s) 0, [facility]: [id number], 179, cm, 01/13/25 5:36:00 EDT, Height/Length Dosing, 131, kg, 01/13/25 5:36:00 EDT, Weight Dosing Start Date: 01/13/25 Status: Ordered Quantity: 30.0 Unit: tab(s) Repeat number: 1 Baclofen 10 MG/2 0ML as directed Intrathecal Not-Taking/PRN Comment on above: Take 10 mg by mouth as needed. cefadroxil 500 mg oral capsule (1 source) Cephalosporin Antibacterial Start: 2 End: 2 take 1 capsule by mouth every twelve hours cefadroxil 500 mg Cap 500 mg = 1 cap(s), Oral, q12hr, X 2 day(s), # 4 cap(s), Refills(s) 0, Pharmacy: [facility]/pharmacy #[id number], 177, cm, 07/18/22 10:25:00 EDT, Height/Length Dosing, 131.4, kg, 07/18/22 10:25:00 EDT, Weight Dosing Start Date: 08/05/22 Stop Date: 08/07/22 Status: Ordered cefdinir 300 mg oral capsule (18 sources) Cephalosporin Antibacterial Start: 4 take 1 capsule by mouth every twelve hours cefdinir (OMNICEF) 300 mg capsule Take 1 capsule by mouth every 12 hours. 12/24/2023 Active Start: 12-24-2023 End: 01-12-2024 take 1 capsule by mouth twice daily Cefdinir 300 mg capsule Discontinued 300 MG PO Twice daily December 24, 2023 12:00am January 12, 2024 11:40am Comment on above: [facility]. cephalexin 500 mg oral capsule (20 sources) Cephalosporin Antibacterial Start: 01-31-2025 End: 02-07-2025 take 1 capsule by mouth three times daily Keflex 500 mg Cap 500 mg = 1 cap(s), Oral, TID, X 7 day(s), # 21 cap(s), Refills(s) 0, [facility]: [id number], 179, cm, 01/13/25 5:36:00 EDT, Height/Length Dosing, 131, kg, 01/13/25 5:36:00 EDT, Weight Dosing Start Date: 01/31/25 Stop Date: 02/07/25 Status: Ordered Quantity: 21.0 Unit: cap(s) Repeat number: 1 Start: 10-15-2022 take 1 tablet by [facility] every eight hours Cephalexin 500 MG 1 tablet Orally tid for 7 days Oct, Not-Taking/PRN Start: 08-05-2022 End: 08-12-2022 take 1 capsule by mouth three times daily Keflex 500 mg Cap 500 mg = 1 cap(s), Oral, TID, X 7 day(s), # 21 cap(s), Refills(s) 0, Pharmacy: [facility]/pharmacy #[id number], 177, cm, 07/18/22 10:25:00 EDT, Height/Length Dosing, 131.4, kg, 07/18/22 10:25:00 EDT, Weight Dosing Start Date: 08/05/22 Stop Date: 08/12/22 Status: Ordered dexamethasone 4 mg oral tablet (3 sources) Corticosteroid Start: 07-05-2021 dexAMETHasone (DECADRON) 4 mg tablet 07/05/2021 Active Diurex Water Pills (7 sources) Start: 06-10-2024 Diurex Water P ills PRN swelling, Refills(s) 0 Start Date: 06/10/24 Status: Ordered Repeat number: 1 Start: 06-10-2024 Diurex Water P ills PRN swelling, Refills(s) 0 Start Date: 8/30/24 Status: Ordered docusate sodium 100 mg oral capsule (6 sources) Start: 01-31-2025 take 1 capsule by [facility] twice daily as needed for constipation Colace 100 mg Cap 100 mg = 1 cap(s), Oral, BID, PRN for constipation, # 40 cap(s), Refills(s) 0, [facility]: [id number], 179, cm, 01/13/25 5:36:00 EDT, Height/Length Dosing, 131, kg, 01/13/25 5:36:00 EDT, Weight Dosing Start Date: 01/31/25 Status: Ordered Quantity: 40.0 Unit: cap(s) Repeat number: 1 Start: 08-05-2022 take 1 capsule by [facility] twice daily as needed for constipation Colace 100 mg Cap 100 mg = 1 cap(s), Oral, BID, PRN for constipation, # 40 cap(s), Refills(s) 0, Pharmacy: [facility]/pharmacy #[id number], 177, cm, 07/18/22 10:25:00 EDT, Height/Length Dosing, 131.4, kg, 07/18/22 10:25:00 EDT, Weight Dosing Start Date: 08/05/22 Status: Ordered flecainide acetate 50 mg oral tablet (20 sources) Antiarrhythmic Start: 05-18-2024 End: 01-05-2025 flecainide (Tambocor) 50 mg tablet Indications: Atrial fibrillation, currently in sinus rhythm 1 TABLET TWICE A DAY 180 tablet 3 01/05/2025 Active Start: 05-18-2024 take 1 tablet by [facility] every twelve hours Flecainide 50 mg tablet Active 50 MG PO Every 12 hours October 24, 2024 1:00am Complies with drug therapy hydroCHLOROthiazide 12.5 mg / lisinopril 20 mg oral tablet (20 sources) Thiazide Diuretic, Angiotensin Converting Enzyme Inhibitor Start: 01-25-2024 End: 03-29-2024 take 1 tablet by mouth once daily Lisinopril-Hydrochlorothiazide 20-12.5 mg tablet Active 0 .ROUTE .COMPLEX 90 March 29, 2024 2:15pm TAKE 1 TABLET BY MOUTH DAILY Complies with drug therapy Start: 06-11-2023 lisinopril-hyd roCHLOROthiazide 20-12.5 MG tablet 06/11/2023 Active Start: 07-18-2022 End: 01-05-2026 take 1 tablet by mouth once daily lisinopriL-hydrochlorothiazide 20-12.5 m g tablet Indications: Primary hypertension , Atrial fibrillation, currently in sinus rhythm , Persistent atrial fibrillation (Multi) , High risk medication use , halfway current use of anticoagulant therapy , Hard of hearing , Encounter to discuss test results , Other hyperlipidemia Take 1 tablet by mouth once daily. 90 tablet 3 01/05/2025 01/05/2026 Active Start: 03-13-2021 lisinopril-hyd roCHLOROthiazide (PRINZIDE,ZESTORETIC) 20-12.5 mg per tablet 09/06/2021 Active Journavx 50 mg tablet (1 source) Start: 04-25-2025 Journavx 50 mg tablet Take 1 tablet (50 mg) by mouth if needed. 04/25/2025 Active levoFLOXacin 750 mg oral tablet (3 sources) Quinolone Antimicrobial Start: 07-05-2021 levoFLOXacin (LEVAQUIN) 750 mg tablet 07/05/2021 Active Magnesium Aspart,Citrate,Oxide 400 mg magnesium capsule (3 sources) Start: 10-24-2024 Magnesium Aspart,Citrate,Oxide 400 mg magnesium capsule Active MG PO October 24, 2024 1:00am Complies with drug therapy Start: 10-24-2024 Magnesium Aspa rt,Citrate,Oxide 400 mg magnesium capsule Active MG PO October 24, 2024 12:00am magnesium oxide 400 mg oral tablet (20 sources) Start: 05-18-2024 End: 01-05-2025 magnesium oxide (Mag-Ox) 400 mg (241.3 mg magnesium) tablet Indications: Atrial fibrillation, currently in sinus rhythm 1 TABLET DAILY 90 tablet 3 01/05/2025 Active Start: 05-18-2024 take 1 tablet by toyin th in the morning magnesium oxide (Mag-Ox) 400 MG tablet Take 1 tablet by mouth in the morning. 05/18/2024 Active 24 hr metFORMIN hydrochloride 500 mg extended release oral tablet (2 sources) Biguanide Start: 03-26-2023 take 2 tablets by mouth every twenty-four hours metFORMIN HCl ER 500 MG 2 tablets with evening meal Orally Once a day for 30 days Mar, Active methylPREDNISolone 4 mg oral tablet (20 sources) Corticosteroid Start: 10-19-2024 End: 10-25-2024 Medrol 4 mg Tab = 1 packet(s), Oral, As Directed, as directed on package labeling, X 6 day(s), # 21 tab(s), Refills(s) 0, [facility]: [id number], 177, cm, 10/19/24 14:21:00 EST, Height/Length Dosing, 126.2, kg, 10/19/24 14:21:00 EST, Weight Dosing Start Date: 10/19/24 Stop Date: 10/25/24 Status: Ordered Start: 10-15-2022 Medrol (Jaydon) 4 MG as directed Orally daily for 6 days Oct, Not-Taking/PRN 24 hr metoprolol succinate 25 mg extended release oral tablet (20 sources) beta-Adrenergic Jayne Start: 10-24-2024 End: 10-25-2024 take 1 tablet by mouth once daily Metoprolol Succinate 100 mg tablet extended release 24 hr Discontinued 100 MG PO Daily October 24, 2024 1:00am October 25, 2024 12:03pm Start: 06-10-2024 METOPROLOL SUC CINATE ER 25 MG TB24 METOPROLOL SUCCINATE ER 25 MG TB24, Daily Start Date: 06/10/24 Status: Ordered Repeat number: 1 Start: 06-10-2024 METOPROLOL SUC CINATE ER 25 MG TB24 METOPROLOL SUCCINATE ER 25 MG TB24, Daily Start Date: 06/10/24 Status: Ordered Start: 05-18-2024 End: 01-05-2025 metoprolol succinate XL (Top rol-XL) 25 mg 24 hr tablet Indications: Primary hypertension , Atrial fibrillation, currently in sinus rhythm 1 TABLET DAILY 90 tablet 3 01/05/2025 Active Start: 05-18-2024 take 1 tablet by toyin th every twenty-four hours in the morning metoprolol succinate XL (Toprol-XL) 25 MG 24 hr tablet Take 1 tablet by mouth in the morning. 05/18/2024 Active Start: 10-07-2023 End: 10-06-2024 take 1 tablet by mouth once daily metoprolol succinate XL (Toprol-XL) 100 mg 24 hr tablet Indications: Persistent atrial fibrillation (CMS/HCC) Take 1 tablet (100 mg) by mouth once daily. Do not crush or chew. 90 tablet 3 10/07/2023 10/06/2024 Active multivitamin tablet (2 sources) End: 10-22-2023 take 1 tablet by mouth once daily multivitamin tablet Take 1 tablet by mouth once daily. 0 10/22/2023 Discontinued (Therapy completed) take 1 tablet by mouth once reg y multivitamin tablet Take 1 tablet by mouth once daily. 0 Active multivitamin with minerals (10 sources) Start: 12-14-2023 multivitamin w ith minerals Refill(s) 0 Start Date: 12/14/23 Status: Ordered eztpdkjjizsn-ypjktofo-yn tein (CENTRUM SILVER) tablet (3 sources) take 1 tablet by mouth in the morning hrdgfhhbfudg-dbfxgpox-w utein (CENTRUM SILVER) tablet Take 1 tablet by mouth in the morning. Active take 1 tablet by toyin th in the morning jglvbuerquml-unworpdv-clrmlv (CENTRUM SI LVER) tablet Take 1 tablet by mouth in the morning. 0 Active oxyCODONE hydrochloride 5 mg oral tablet (6 sources) Opioid Agonist Start: 01-31-2025 oxyCODONE 5 mg Tab 5 mg = 1 tab(s), Oral, As Directed, 1-2 po q4-6 hrs prn pain Dx: M17.12, Z96.652 Duration: 7days, # 40 tab(s), Refills(s) 0, [facility]: [id number], 179, cm, 01/13/25 5:36:00 EDT, Height/Length Dosing, 131, kg, 01/13/25 5:36:00 EDT, Weight Dosing Start Date: 01/31/25 Status: Ordered Quantity: 40.0 Unit: tab(s) Repeat number: 1 Start: 08-05-2022 oxyCODONE 5 mg Tab 5 mg = 1 tab(s), Oral, As Directed, 1-2 po q4-6 hrs prn pain Dx: M17.11, Z96.651 Duration: 7days, # 40 tab(s), Refills(s) 0, Pharmacy: [facility]/pharmacy #[id number], 177, cm, 07/18/22 10:25:00 EDT, Height/Length Dosing, 131.4, kg, 07/18/22 10:25:00 EDT, Weight Dosing Start Date: 08/05/22 Status: Ordered rosuvastatin calcium 5 mg oral tablet (20 sources) HMG-CoA Reductase Inhibitor Start: 09-14-2024 End: 01-05-2026 take 1 tablet by mouth once daily rosuvastatin (Crestor) 5 mg tablet Indications: Other hyperlipidemia Take 1 tablet (5 mg) by mouth once daily. 90 tablet 3 01/05/2025 01/05/2026 Active Start: 06-28-2019 End: 07-30-2022 rosuvastatin (CRESTOR) 20 mg tablet Every 3 days 0 06/28/2019 07/30/2022 Discontinued (Discontinued by another Health Care Provider) Comment on above: Every 3 days Semaglutide (9 sources) Semaglutide Acti ve sildenafil 50 mg oral tablet (20 sources) Phosphodiesterase 5 Inhibitor Start: End: take 1 tablet by mouth once daily as needed sildenafiL (VIAGRA) 50 mg tablet TAKE 1 TABLET BY MOUTH NEEDED DAILY 09/27/2021 Active Comment on above: TAKE 1 TABLET BY TOYIN TH NEEDED DAILY Suzetrigine (Journavx) 50 MG tablet (4 sources) Start: 025 End: take 1 tablet by mouth every twelve hours Suzetrigine (Journavx) 50 MG tablet Indications: Lumbar pain , Degeneration of intervertebral disc of lumbar region with discogenic back pain Take 50 mg by mouth every 12 (twelve) hours for 14 days Take 2 tabs as loading dose followed by 1 tab every 12 hrs thereafter. 28 tablet 04/25/2025 05/09/2025 Active Start: 02-24-2025 End: 03-10-2025 take 1 tablet by mouth every twelve hours Suzetrigine (Journavx) 50 MG tablet Indications: Aftercare following left knee joint replacement surgery Take 50 mg by mouth every 12 (twelve) hours for 14 days Take 2 tabs as loading dose followed by 1 tab every 12 hrs thereafter. 28 tablet 02/24/2025 03/10/2025 Active tadalafil 10 mg oral tablet (6 sources) Phosphodiesterase 5 Inhibitor Start: 11-04-2021 tadalafiL (CIALIS) 10 MG tablet Take 1 tablet (10 mg total) by mouth as needed. 11/04/2021 Active triamcinolone acetonide 1 mg/ml topical cream (20 sources) Corticosteroid Start: 06-10-2024 triamcinolone Top 0.1% Crm 15 gram Refill(s) 0 Start Date: 06/10/24 Status: Ordered Repeat number: 1 Start: 06-10-2024 triamcinolone Top 0.1% Crm 15 gram Refill(s) 0 Start Date: 06/10/24 Status: Ordered Start: 04-01-2024 End: 04-07-2025 Triamcinolone Acetonide 0.1 % cream Discontinued 1 APPLIC TOPICAL Twice daily April 01, 2024 12:00am April 07, 2025 1:54pm Start: 02-04-2024 End: 01-04-2025 triamcinolone (Nasacort Roshan rgy 24HR) 55 MCG/ACT nasal inhaler Administer into affected nostril(s) 02/04/2024 01/04/2025 Discontinued (Therapy completed) Start: 02-04-2024 triamcinolone acetonide (NASACORT AQ) 55 mcg nasal inhaler Use in the nose. 02/04/2024 Active Start: 02-04-2024 Nasacort Aller gy 24HR nasal spray 1 spray(s), Nasal, Daily Allergy symptoms, Refill(s) 0 Start Date: 02/04/24 Status: Ordered Repeat number: 1 Completed/Discontinued Medications Medication Drug Class(es) Dates Sig (Normalized) Sig (Original) [id number] 200 actuat albuterol 0.09 mg/actuat metered dose inhaler (20 sources) beta2-Adrenergic Agonist Start: 04-06-2025 End: 04-07-2025 take 2 puff(s) by inhalation every four hours as needed Albuterol Sulfate (Ventolin Hfa) 90 mcg/actuation HFA aerosol inhaler Discontinued 2 PUFF INHALATION Every 4 hours April 06, 2025 12:00am April 07, 2025 1:53pm [employer] puffs as needed Inhalation every 4 hrs; Note: Source Status: Taking; Refills: 0; Qty: 1 Each; Provider: Arslan Soliz Start: 10-21-2022 take 2 puff(s) by in halation every four hours as needed Ventolin HFA 108 (90 Base) MCG/ACT 2 puffs as needed Inhalation every 4 hrs Oct, Active Start: 07-11-2021 albuterol (PRO VENTIL HFA;VENTOLIN HFA) 90 mcg/actuation inhaler 07/11/2021 Active amoxicillin 875 mg / clavulanate 125 mg oral tablet (10 sources) Penicillin-class Antibacterial Start: 08-25-2022 take 1 tablet by mouth twice daily amoxicillin-clavulanic acid (AUGMENTIN) 875-125 mg per tablet Take 1 tablet by mouth twice daily. 0 08/25/2022 Active Comment on above: Take 1 tablet by mouth twice daily. aspirin 325 mg oral tablet (20 sources) Platelet Aggregation Inhibitor, Nonsteroidal Anti-inflammatory Drug Start: 04-06-2025 End: 04-07-2025 take 1 tablet by mouth once daily Aspirin (Hawa Aspirin) 325 mg tablet Discontinued 325 MG PO Daily April 06, 2025 12:00am April 07, 2025 1:53pm FreeTextSi tablet Orally Once a day; Note: Source Status: Taking; Provider: Arslan Clarke ( ) Start: 08-05-2022 Aspirin 81 mg Tab-EC 81 mg = 1 tab(s), Oral, BIDPC, # 60 tab(s), Refills(s) 0, Pharmacy: [facility]/pharmacy #[id number], 177, cm, 07/18/22 10:25:00 EDT, Height/Length Dosing, 131.4, kg, 07/18/22 10:25:00 EDT, Weight Dosing Start Date: 08/05/22 Status: Ordered Start: 07-18-2022 End: 10-07-2023 take 1 tablet by mouth once daily aspirin buffered 325 mg oral tablet 325 mg = 1 tab(s), Oral, Daily, Blood Thinner Start Date: 07/18/22 Status: Ordered Comment on above: Take 325 mg by mouth once daily. betamethasone 3 mg/ml / betamethasone acetate 3 mg/ml injectable suspension (8 sources) Corticosteroid Start: 11-09-2024 End: 11-09-2024 betamethasone acetate-betamethasone sodium phosphate (Celestone) injection 1 mL Start: 11-09-2024 End: 11-09-2024 1 mL, Intra-articular, Once PRN Procedure, Starting on Thu11/09/24 at 1359, For 1 dose Start: 10-26-2024 End: 10-26-2024 betamethasone acetate-betame thasone sodium phosphate (Celestone) injection 1 mL Start: 10-26-2024 End: 10-26-2024 1 mL, Intra-articular, Once PRN Procedure, Starting on Thu10/26/24 at 1027, For 1 dose Calcium (2 sources) Phosphate Binder, Calcium End: 08-03-2024 calcium 200 MG tablet Calcium 08/03/2024 Discontinued (Therapy completed) calcium carbonate 1500 mg oral tablet (3 sources) Start: 10-24-2024 End: 04-07-2025 take 1 tablet by mouth once daily Calcium Carbonate 600 mg calcium (1,500 mg) tablet Discontinued 600 MG PO Daily October 24, 2024 1:00am April 07, 2025 1:54pm Cetirizine (6 sources) Histamine-1 Receptor Antagonist End: 06-24-2024 cetirizine HCl (ZYRTEC ORAL) Take by mouth once daily. 06/24/2024 Discontinued cetirizine HCl ( ZYRTEC ORAL) Take by mouth once daily. Active cetirizine HCl ( ZYRTEC ORAL) Take by mouth once daily. 0 Active Comment on above: Take by mouth once d aily. Ibuprofen (18 sources) Nonsteroidal Anti-inflammatory Drug End: 06-24-2024 IBUPROFEN ORAL Take by mouth. 06/24/2024 Discontinued IBUPROFEN ORAL T shantelle by mouth. Active IBUPROFEN ORAL T shantelle by mouth. 0 Active Comment on above: Take by mouth. ketoconazole 20 mg/ml topical cream (20 sources) Azole Antifungal Start: 04-06-2025 End: 04-07-2025 Ketoconazole 2 % cream Discontinued 1 APPLIC TOPICAL Daily April 06, 2025 12:00am April 07, 2025 1:54pm FreeTextSi application Externally Once a day; Note: Source Status: Refill; Refills: 1; Provider: Arslan Soliz Start: 08-19-2021 ketoconazole ( NIZORAL) 2 % cream 08/19/2021 Active Start: 04-05-2019 End: 07-30-2022 ketoconazole (NIZORAL) 2 % c ream USE 1-2 TIMES A DAY 3 04/05/2019 07/30/2022 Discontinued Ketoconazole 2 % 1 application Externally Once a day for 14 days Active Comment on above: USE 1-2 TIMES A DAY Lutein (2 sources) End: 4 take 1 tablet by mouth in the morning LUTEIN PO Take 1 tablet by mouth in the morning. 08/03/2024 Discontinued (Therapy completed) meloxicam 10 mg oral capsule (20 sources) Nonsteroidal Anti-inflammatory Drug Start: 5 End: take 1 capsule by mouth once daily Meloxicam Submicronized 10 mg capsule Discontinued 10 MG PO Daily April 06, 2025 12:00am April 07, 2025 1:54pm FreeTextSi capsule Orally Once a day; Note: Source Status: Taking; Provider: Arslan Clarke ( ) Start: 04-14-2022 take 1 tablet by toyin th once daily meloxicam (MOBIC) 15 mg tablet TAKE 1 TABLET BY MOUTH EVERY DAY FOR 30 DAYS 0 04/14/2022 Active take 1 capsule by mo uth every twenty-four hours Meloxicam 10 MG 1 capsule Orally Once a day Active Comment on above: TAKE 1 TABLET BY TOYIN TH EVERY DAY FOR 30 DAYS Multi Vitamin Oral Tablet (4 sources) take 1 tablet by mouth once daily Multi Vitamin Oral Tablet TAKE 1 TABLET DAILY. Quantity: 0 Refills: 0 Ordered: 05-Nov-2022 DO Active Multiple Vitamins-Minerals (MULTIVITAMIN ADULTS PO) (2 sources) End: 08-03-2024 Multiple Vitamins-Minerals (MULTIVITAMIN ADULTS PO) Multivitamin 08/03/2024 Discontinued (Therapy completed) 24 hr niacin 500 mg extended release oral tablet (20 sources) Nicotinic Acid Start: 04-06-2025 End: 04-07-2025 take 1 tablet by mouth once daily at bedtime Niacin 500 mg tablet extended release 24 hr Discontinued 500 MG PO Daily at bedtime April 06, 2025 12:00am April 07, 2025 1:54pm FreeTextSig: TAKE 1 TABLET BY MOUTH AT BEDTIME; Note: Source Status: Taking; Refills: 3; Qty: 90 Tablet; Provider: Arslan Clarke ( ) Start: 11-03-2023 End: 10-24-2024 take 1 capsule by mouth once daily at bedtime Niacin 500 mg capsule, extended release Discontinued 500 MG PO Daily at bedtime November 03, 2023 1:00am October 24, 2024 2:14pm Start: 07-18-2022 End: 06-24-2024 take 1 tablet by mouth once daily niacin 500 mg ER Tab 500 mg = 1 tab(s), Oral, Daily, Refills(s) 0, High cholesterol Start Date: 07/18/22 Status: Ordered Start: 09-11-2021 End: 08-03-2024 niacin (Niaspan) 500 MG ER t ablet 06/30/2023 08/03/2024 Discontinued (Therapy completed) take 1 tablet by toyin th at bedtime Niacin ER (Antihyperlipidemic) 500 MG TAKE 1 TABLET BY MOUTH AT BEDTIME for 90 Active Comment on above: Take 500 mg by mouth daily with breakfast. predniSONE 10 mg oral tablet (5 sources) Start: 08-03-2024 End: 10-26-2024 predniSONE (Deltasone) 10 MG tablet Indications: Degeneration of intervertebral disc of lumbar region with discogenic back pain , Sacroiliitis (CMS/HCC) , Morbid obesity (CMS/HCC) As directed orally - Take 6 tabs day 1 and 2, 5 tabs day 3 and 4, 4 tabs day 5 and 6, 3 tabs day 7 and 8, 2 tabs day 9 and 10, and 1 tab day 11 and 12. 42 tablet 08/03/2024 10/26/2024 Discontinued (Therapy completed) semaglutide (OZEMPIC SUBCUTANEOUS) (7 sources) semaglutide (OZE MPIC SUBCUTANEOUS) Inject subcutaneously. 0 Active Comment on above: Inject subcutaneousl y. sotalol hydrochloride 120 mg oral tablet (20 sources) Antiarrhythmic Start: 01-12-2024 End: 10-24-2024 Sotalol (Sotalol Af) 120 mg tablet Discontinued 40 MG PO Twice daily January 12, 2024 11:35am October 24, 2024 2:14pm Start: 01-04-2024 End: 08-03-2024 sotalol (Betapace) 80 MG tab let Take 40 mg by mouth every 12 (twelve) hours 01/04/2024 08/03/2024 Discontinued (Therapy completed) Start: 12-14-2023 sotalol 80 mg Tab 40 [...] tablets by mouth two times a day. 10/22/2023 06/24/2024 Discontinued take 40 mg by mouth at bedtime s otalol HCl (SOTALOL ORAL) Take 40 mg by mouth in the morning and at bedtime. Active take 1 tablet by toyin th every twelve hours Sotalol HCl 120 MG 1 tablet Orally every 12 hrs Active Comment on above: Take 1 tablet by toyin th two times a day. tiZANidine 2 mg oral tablet (5 sources) Central alpha-2 Adrenergic Agonist Start: 10-19-2024 End: 11-09-2024 tiZANidine (Zanaflex) 2 MG tablet Take 2 mg by mouth 10/19/2024 11/09/2024 Discontinued Vitamin D3 CAPS (2 sources) Vitamin D3 CAPS TAKE 1 CAPSULE Daily Quantity: 0 Refills: 0 Ordered: 05-Nov-2022 DO Active Problems Active Problems Problem Classification Problem Date Documented Da te Episodic/Chronic Blindness and vision defects (4 sources) Diplopia; Translations: [Diplopia] 10-24-2024 Episodic Cardiac dysrhythmias (20 sources) Premature atrial contraction; Translations: [Supraventricular premature beats] Onset: 3 10-07-2023 Chronic Chronic obstructive pulmonary disease and bronchiectasis (2 sources) Bronchitis, not specified as acute or chronic Episodic Coagulation and hemorrhagic disorders (20 sources) Platelet disorder; Translations: [Qualitative platelet defects] Onset: 4 Resolved: 4 12-29-2023 Chronic Diabetes mellitus with complications (20 sources) Type [...] Episodic Occlusion or stenosis of precerebral arteries (20 sources) Bilateral stenosis of carotid arteries; Translations: [Occlusion and stenosis of bilateral carotid arteries] Onset: 4 01-28-2024 Chronic Comment on above: Outside Source Comme nt: Last Assessment & Plan: Carotid duplex US Osteoarthritis (20 sources) Bilateral osteoarthritis of knees; Translations: [Osteoarthritis of right knee joint] Onset: 6 07-18-2022 Chronic Other aftercare (2 sources) Patient encounter status; Translations: [Aftercare following joint replacement surgery] 02-27-2025 Chronic Other circulatory disease (20 sources) History of transient ischemic attack 07-18-2022 Episodic Other circulatory disease (10 sources) Elevated blood-pressure reading without diagnosis of hypertension; Translations: [Elevated blood-pressure reading, without diagnosis of hypertension] Episodic Other circulatory disease (10 sources) Cardiovascular symptoms; Translations: [Other specified symptoms and signs involving the circulatory and respiratory systems] Episodic Other connective tissue disease (2 sources) History of total knee arthroplasty; Translations: [Presence of right artificial knee joint] 01-04-2025 Chronic Other connective tissue disease (2 sources) History of left total knee replacement; Translations: [Presence of left artificial knee joint] 05-01-2025 Chronic Other connective tissue disease (10 sources) Pain in right foot; Translations: [Pain in right foot] Episodic Other connective tissue disease (10 sources) Ganglion, right ankle and foot; Translations: [Ganglion, right ankle and foot] Episodic Other connective tissue disease (10 sources) Tibialis tendinitis; Translations: [Posterior tibial tendinitis, right leg] Episodic Other connective tissue disease (1 source) Bilateral heel pain; Translations: [Pain in right foot] 06-04-2021 Episodic Other connective tissue disease (1 source) Pain in both feet; Translations: [Pain in right foot] 06-04-2021 Episodic Other connective tissue disease (1 source) Nontraumatic rupture of rotator cuff of left shoulder; Translations: [Unspecified rotator cuff tear or rupture of left shoulder, not specified as traumatic] Onset: Episodic Other connective tissue disease (1 source) Rotator cuff arthropathy of left shoulder; Translations: [Unspecified rotator cuff tear or rupture of left shoulder, not specified as traumatic] 10-25-2024 Episodic Other connective tissue disease (1 source) Tendonitis of left wrist; Translations: [Other enthesopathies, not elsewhere classified] 02-11-2025 Episodic Other connective tissue disease (1 source) Other enthesopathies, not elsewhere classified; Translations: [Other enthesopathies, not elsewhere classified] Onset: 5 Episodic Other ear and sense organ disorders (9 sources) Hearing loss; Translations: [Unspecified hearing loss, unspecified ear] Onset: 4 09-14-2024 Chronic Other ear and sense organ disorders (2 sources) Unspecified hearing loss, unspecified ear; Translations: [Unspecified hearing loss, unspecified ear] Onset: 4 Chronic Other ear and sense organ disorders (10 sources) Infective otitis externa; Translations: [Other infective otitis externa, right ear] Episodic Other ear and sense organ disorders (10 sources) Impacted cerumen; Translations: [Impacted cerumen, bilateral] Episodic Other lower respiratory disease (5 sources) Chronic cough; Translations: [Chronic cough] 02-17-2024 Episodic Other male genital disorders (16 sources) Impotence 01-15-2024 Chronic Other nervous system disorders (1 source) Other chronic pain; Translations: [OTHER CHRONIC PAIN] Onset: 2 Chronic Other non-traumatic joint disorders (3 sources) Pain in left knee; Translations: [Pain in joint, lower leg] Onset: 2 01-04-2025 Episodic Other non-traumatic joint disorders (10 sources) Arthralgia of the ankle and/or foot; Translations: [Pain in right ankle and joints of right foot] Episodic Other non-traumatic joint disorders (10 sources) Arthropathy of right shoulder; Translations: [Other specified joint disorders, right shoulder] Episodic Other non-traumatic joint disorders (1 source) Other specified joint disorders, right shoulder Episodic Other non-traumatic joint disorders (1 source) Pain of left shoulder joint; Translations: [Pain in left shoulder] Onset: 5 Episodic Other non-traumatic joint disorders (4 sources) Rotator cuff arthropathy of right shoulder; Translations: [Unspecified rotator cuff tear or rupture of right shoulder, not specified as traumatic] 11-11-2024 Episodic Other non-traumatic joint disorders (2 sources) Pain in right shoulder; Translations: [Pain in joint, shoulder region] 11-09-2024 Episodic Other non-traumatic joint disorders (2 sources) Pain in left shoulder; Translations: [Left shoulder pain] 10-31-2024 Episodic Other nutritional; endocrine; and metabolic disorders (20 sources) Body mass index 40+ - severely obese; Translations: [Morbid obesity] 01-28-2024 Chronic Other nutritional; endocrine; and metabolic disorders (20 sources) Morbid obesity; Translations: [Morbid (severe) obesity due to excess calories] 01-15-2024 Chronic Other nutritional; endocrine; and metabolic disorders (14 sources) Excessive thirst; Translations: [Polydipsia] Episodic Other nutritional; endocrine; and metabolic disorders (1 source) Polydipsia Episodic Other skin disorders (10 sources) Hypertrophic condition of skin; Translations: [Other hypertrophic disorders of the skin] Episodic Other skin disorders (5 sources) Sebaceous cyst of skin; Translations: [Sebaceous cyst] 01-12-2024 Episodic Other skin disorders (2 sources) Sebaceous cyst; Translations: [Sebaceous cyst] 01-12-2024 Episodic Other skin disorders (3 sources) Epidermoid cyst; Translations: [Epidermal cyst] Onset: 4 Episodic Other skin disorders (15 sources) Epidermoid cyst of skin 01-28-2024 Episodic Other upper respiratory disease (20 sources) Seasonal allergic rhinitis; Translations: [Other seasonal allergic rhinitis] 01-15-2024 Chronic Other upper respiratory infections (15 sources) Chronic sinusitis; Translations: [Chronic sinusitis, unspecified] [...] of mental health and substance abuse codes (2 sources) Tobacco use and exposure - finding 05-26-2025 Chronic Screening and history of mental health and substance abuse codes (7 sources) Ex-smoker; Translations: [Personal history of tobacco use] Onset: 5 05-26-2025 Episodic Spondylosis; intervertebral disc disorders; other back problems (20 sources) Other intervertebral disc degeneration, lumbar region; Translations: [Spondylosis without myelopathy or radiculopathy, lumbar region] Onset: 2 Chronic Spondylosis; intervertebral disc disorders; other back problems (13 sources) Pain in thoracic spine; Translations: [Low back pain] Onset: 2 08-03-2024 Episodic Unclassified (3 sources) LOW BACK PAIN, UNSPECIFIED; Translations: [LOW BACK PAIN, UNSPECIFIED] Onset: 2 Unclassified (1 source) Thrombophlebitis of superficial vein of lower leg Onset: 4 Unclassified (3 sources) Patient encounter status 09-14-2024 Unclassified (1 source) Preprocedural examination done 01-05-2025 Unclassified (2 sources) I73.9 - Peripheral vascular disease, unspecified Unclassified (2 sources) PAD (peripheral artery disease) 05-26-2025 Unclassified (2 sources) Other persistent atrial fibrillation; Translations: [Other persistent atrial fibrillation] Onset: 3 Viral infection (10 sources) Herpes zoster without complication; Translations: [Zoster without complications] Episodic Viral infection (10 sources) Disease caused by 2019-nCoV; Translations: [COVID-19] Past or Other Problems Problem Classification Problem Date Documented Date Episodic/Chronic Acute bronchitis (10 sources) Acute bronchitis; Translations: [Acute bronchitis, unspecified] Onset: 08-29-2016 Episodic Administrative/social admission (8 sources) Patient encounter status; Translations: [Person consulting for explanation of examination or test findings] Onset: 09-14-2024 09-14-2024 Episodic Cardiac dysrhythmias (12 sources) Palpitations; Translations: [Palpitations] Onset: 10-01-2023 10-07-2023 Episodic Mycoses (10 sources) Tinea corporis; Translations: [Tinea corporis] Onset: 03-14-2015 Episodic Other aftercare (13 sources) Long-term current use of anticoagulant; Translations: [long term care pharmacist (current) use of anticoagulants] Onset: 05-18-2024 09-14-2024 Episodic Other aftercare (9 sources) Taking high risk medication; Translations: [Other terminal press operator (current) drug therapy] Onset: 05-03-2024 09-14-2024 Episodic Other aftercare (4 sources) Other terminal press operator (current) drug therapy; Translations: [Other fpc (current) drug therapy] Onset: 05-03-2024 Episodic Other aftercare (4 sources) halfway (current) use of anticoagulants; Translations: [long term care pharmacist (current) use of anticoagulants] Onset: 05-18-2024 Episodic Other circulatory disease (11 sources) H/O: atrial fibrillation; Translations: [Personal history of other diseases of the circulatory system] Onset: 05-18-2024 09-14-2024 Episodic Other circulatory disease (4 sources) Personal history of other diseases of the circulatory system; Translations: [Personal history of other diseases of the circulatory system] Onset: 05-18-2024 Episodic Other hematologic conditions (20 sources) Secondary polycythemia; Translations: [Secondary polycythemia] Onset: 09-25-2017 Episodic Other hematologic conditions (2 sources) Secondary polycythemia; Translations: [Polycythemia, secondary] Onset: 06-24-2024 Episodic Other lower respiratory disease (10 sources) Dyspnea; Translations: [Dyspnea, unspecified] Onset: 02-13-2016 Episodic Other nervous system disorders (20 sources) Numbness of foot ; Translations: [Anesthesia of skin] Onset: 02-16-2017 02-16-2017 Episodic Other non-traumatic joint disorders (5 sources) Pain in right knee; Translations: [PAIN IN RIGHT KNEE] Onset: 01-01-2022 Episodic Other non-traumatic joint disorders (10 sources) Shoulder joint pain; Translations: [Pain in right shoulder] Onset: 07-01-2017 Episodic Other non-traumatic joint disorders (10 sources) Arthralgia of the lower leg; Translations: [Pain in unspecified knee] Onset: 06-13-2014 Episodic Other screening for suspected conditions (not mental disorders or infectious disease) (20 sources) Iron overload; Translations: [Electrocardiogram abnormal] Onset: 10-01-2023 07-18-2022 Episodic Other upper respiratory infections (10 sources) Acute maxillary sinusitis; Translations: [Acute recurrent maxillary sinusitis] Onset: 12-28-2018 Episodic Residual codes; unclassified (20 sources) History of arthroscopy of knee joint; Translations: [Other specified postprocedural states] Onset: 09-12-2016 09-12-2016 Episodic Residual codes; unclassified (6 sources) Other specified health status; Translations: [Other drug allergy] Onset: 05-18-2024 05-18-2024 Episodic Unclassified (1 source) LOW BACK PAIN, UNSPECIFIED; Translations: [LOW BACK PAIN, UNSPECIFIED] Onset: 08-14-2022 Unclassified (4 sources) Onset: 05-03-2024 05-03-2024 Unclassified (2 sources) Arthritis of left shoulder region 10-31-2024 Results Test Name Value Interpretation Reference Range Facility XR Knee - left 3 [facility] Result: Xrays taken in the office today, 5 views including b/l AP weightbearing, b/l sunrise and lateral of the operative knee; saved to the permanent record, show stable position and alignment of the knee prosthesis. No sign of loosening or catastrophic wear. Well placed TKA on the right. [facility] Radiology Study observation (narrative) [facility] Surgical Pathology Reporton 02-03-2025 Surgical Pathology Report [address] [place] [address]- Surgical Pathology Report Collected Date/Time: 01/31/2025 09:16 EDT Pathologist: Garth Jaffe MD Received Date/Time: 01/31/2025 11:08 EDT Anupam Quesada DO, DO, David A 07 Surgical Pathology Report - 02/03/2025 12:11 EDT - Auth (Verified) Final Diagnosis LEFT KNEE BONE AND SOFT TISSUE, ARTHROPLASTY: SEVERE DEGENERATIVE OSTEOARTHRITIS - ACCOMPANYING MILD TO MODERATE CHRONIC REACTIVE SYNOVITIS - SOFT TISSUE CRYSTAL DEPOSITION CONSISTENT WITH CALCIUM PYROPHOSPHATE PRESENT (Electronic Signature) Garth Jaffe MD 02/03/2025 12:11 Clinical Information Left knee osteoarthritis Pre-Op Diagnosis: Left knee osteoarthritis Procedure: Left total knee arthroplasty Post-Op Diagnosis: 1. Left knee osteoarthritis 2. Morbid obesity Specimen(s) Received Left knee bone and soft tissue Gross Description Received in formalin labeled with patient name, number, and left knee bone and soft tissue. The specimen consists of an assortment of fragments of yellowish-white fibrofatty tissue and osseous tissue which in aggregate measure 13 x 13 x 5.5 cm. Among the segments is a recognizable tibial plateau and crescent-shaped meniscal fibrocartilage. The osseous segments are in part covered by articular surface which is thin, rough, and eburnated with osteophyte formation present. Specimen is submitted in two cassettes: 1 - Soft tissue 2 - Bone after decalcification (DC) DC:MCA Microscopic Description Microscopic examination performed unless gross only specified. This report was transcribed using voice recognition technology and might contain unintended computerized green lumber grader errors. Normal [facility] Comment on above: Performed By: #### [id number] #### [facility] [address] [place] [address] Main OR Intraoperative Recor don 02-01-2025 Main OR Intraoperative Record Main OR Intraoperative Record IntraOp Document Type FT Summary Primary Physician: Anupam Quesada DO Finalized Date/Time: 02/01/25 13:08:55 Pt. Name: DAGOBERTO EBEN Gee/Sex: 1960 Male Med Rec #: [id number] Physician: Anupam Quesada DO Financial #: [id number] Pt. Type: A Room/Bed: [place] [address] Admit/Disch: 01/31/25 06:32:02 - 01/31/25 15:00:48 Institution: Case Times FT Entry 1 Patient Times In Room 01/31/25 08:32:00 Out Room 01/31/25 10:43:00 Procedure Times Start 01/31/25 09:07:00 Stop 01/31/25 10:34:00 Anesthesia Times Start 01/31/25 08:32:00 Stop 01/31/25 10:43:00 Block Timeout w/ 01/31/25 07:44:00 Anesthesia Last Modified By: Ambreen RN, Rosa Soliz 01/31/25 10:43:22 General Comments: ULTRASOUND GUIDED NERVE BLOCK PERFORMED BY DR. HUNTER WITH LIZBETH COOK ASSISTING, HEART RATE 74BPM, SPO2 96% 2L NC, PATIENT TOLERATED WELL.LIZBETH CHERRY Case Attendance FT Entry 1 Entry 2 Entry 3 Case Attendee Joe Green CRNA, DO, David A Weisbrod RNFA, Molly A Role Performed LAYNE Surgeon - Primary MAINTENANCE DISPATCHER Time In 01/31/25 08:32:00 01/31/25 08:59:00 01/31/25 09:04:00 Time Out 01/31/25 10:43:00 01/31/25 10:28:00 01/31/25 10:43:00 Procedure KNEE TOTAL ROBOT KNEE TOTAL ROBOT KNEE TOTAL ROBOT ARTHROPLASTY(Left) ARTHROPLASTY(Left) ARTHROPLASTY(Left) Comments DR. HUNTER SUPERVISING Last Modified By: Ambreen RN, Rosa Crook RN, Rosa Crook RN, Rosa Soliz 01/31/25 10:43:23 01/31/25 10:43:23 01/31/25 10:43:23 Entry 4 Entry 5 Entry 6 Case Attendee Ambreen NIEVES, Rosa Morgan BREAD WRAPPER, Sharron Toro LPNSharon Role Performed Supervisor Keymodule Assembly - Primary Scrub - Primary Staff - Other Time In 01/31/25 08:32:00 01/31/25 08:32:00 01/31/25 08:32:00 Time Out 01/31/25 10:43:00 01/31/25 10:28:00 01/31/25 10:43:00 Procedure KNEE TOTAL ROBOT KNEE TOTAL ROBOT KNEE TOTAL ROBOT ARTHROPLASTY(Left) ARTHROPLASTY(Left) ARTHROPLASTY(Left) Comments 2ND SCRUB Last Modified By: Ambreen RN, Rosa Crook RN, Rosa Crook RN, Rosa Soliz 01/31/25 10:43:23 01/31/25 10:43:23 01/31/25 10:43:23 Entry 7 Entry 8 Case Attendee Tucker OTERO, Rose Zambrano RN, BSN, Daya Role Performed Staff - Other Staff - Other Time In 01/31/25 08:32:00 01/31/25 08:32:00 Time Out 01/31/25 08:50:00 01/31/25 08:54:00 Procedure KNEE TOTAL ROBOT KNEE TOTAL ROBOT ARTHROPLASTY(Left) ARTHROPLASTY(Left) Comments room help room help Last Modified By: Ambreen RN, Rosa Crook RN, Rosa Soliz 01/31/25 10:43:23 01/31/25 10:43:23 General Comments: YOU RAE AND MELANIE SIMEON REPS PRESENT FOR THIS CASE. LIZBETH CHERRYenglish horn player Protocols FT Pre-Care Text: Implements protective measures prior to operative or invasive procedure, confirms identity before the operative or invasive procedure, verifies operative procedure, surgical site, and laterality Entry 1 Procedure(s) KNEE TOTAL ROBOT Patient Identity Birthday, Blood Band, ARTHROPLASTY(Left) Verified (select at ID Band Check, Patient least 2): Participation Consents / H and P Anesthesia Consent, Operative Site Present Verified H&P, Surgery/Procedure Marking Verified Consent, Transfusion Consent Surgical Site Yes Laterality Verified Yes Verified Procedure Verified Yes Correct Patient Yes Position Verified Availability Equipment, Implant, Prep Dry Yes Verified (If Medication Applicable) PreOp Antibiotic Yes Time Out Joe Green CRNA, Given Participants Anupam Quesada DO, Ott RN, Leann E, McClain CST, Cortez Vides LPN, Jessica D Time Out Complete 01/31/25 09:02:00 Outcomes Met? Yes Last Modified By: Rosa Crook RN 01/31/25 09:10:59 Post-Care Text: The patient is free from signs and symptoms of injury caused by extraneous objects Allergy Information FT Pre-Care Text: Verifies allergies Entry 1 Allergies Reviewed? Yes Allergies Reviewed Self/Patient With Outcomes Met? Yes Last Modified By: Rosa Crook RN 01/31/25 09:11:05 Post-Care Text: The patient received appropriate medication(s) safely administered during the perioperative period Surgical Procedures FT Entry 1 Procedure Description Procedure KNEE TOTAL ROBOT Modifiers Left ARTHROPLASTY Surgeon Description LEFT KNEE TOTAL ROBOT ARTHROPLASTY Primary Procedure Yes Primary Surgeon Anupam Quesada DO Start 01/31/25 09:07:00 Stop 01/31/25 10:34:00 Anesthesia Type General Surgical Service Orthopedics Wound Class 1 - Clean Last Modified By: Leslie Brito CST 02/01/25 13:05:26 General Case Data FT Pre-Care Text: Classifies surgical wound, implements aseptic technique, initiates traffic control Entry 1 Case Information OR OR 5 FT Case Level Level 6 Wound Class 1 - Clean Specialty Orthopedics ASA Class 3 Preop Diagnosis LEFT KNEE OSTEOARTHRITIS Postop Same As Preop Yes Postop Diagnosis LEFT KNEE OSTEOARTHRITIS Outcomes Met? Yes Last Modified By: Rosa Crook RN 01/31/25 09:11:35 Post-Care Text: The patient is free from signs and symptoms of in (more content not included)... Normal [facility] Operative Reporton Operative Report Operative Report SURGERY DATE: 01/31/2025 AIR MOVING TECHNICIAN: Lynn Mittal PREOPERATIVE DIAGNOSES: 1. Left knee osteoarthritis 2. Morbid obesity POSTOPERATIVE DIAGNOSES: 1. Left knee osteoarthritis 2. Morbid obesity OPERATION: Left knee robotic-assisted total knee arthroplasty using the Raymond platform complicated by morbid obesity ANESTHESIA: Spinal as well as adductor canal block ANESTHESIOLOGIST: Joe Green, C.R.N.A. ESTIMATED BLOOD LOSS: None INTRAVENOUS FLUIDS: Please see operative record SPECIMEN: Bone and soft tissue COMPLICATIONS: None DRAINS: None IMPLANT: [place] Triathlon Total Knee System with a size 5 left cruciate-retaining femur, a size 6 tibial baseplate, 6 x 11 mm condylar-stabilized X3 polyethylene, and a 32 asymmetric patella HISTORY/OPERATIVE INDICATIONS: The patient is a 64-year-old white male who presents complaining of persistent pain and difficulty about the left knee. The patient has had conservative care without relief and the pain does affect quality of life. The patient does appear to be clinically indicated/cost effective for total knee arthroplasty. Please see the preoperative History and Physical, progress notes for further details. The patient has decided upon the procedure and the procedure undertaken here today. INTRAOPERATIVE PATHOLOGY: Upon dissection of the left knee from the standard open medial parapatellar approach, there is noted to be severe arthrosis with varus deformity. The primary area of involvement is medial compartment but significant medial patellar arthrosis as well. Total knee arthroplasty is done with denominational of limb stability and alignment with the use of the [employer] robotic platform. The patient did tolerate the procedure well under spinal anesthetic with the adductor canal block. The block is requested by me to aid in intraoperative, perioperative, and postoperative pain management. Of note, this case is complicated by time, efficiency, and exposure secondary to this patient's morbid obesity with a body mass index above 40. PROCEDURE: After informed consent is obtained and the risks, complications, reasonable expectations of the above procedure are discussed at length, the patient is taken to the Operative Suite, placed on the operating room table in supine position. At this point, the patient is given a spinal anesthetic. A well-padded tourniquet is applied to the left leg and the bed adjusted accordingly. The knee is sterilely prepped and draped in the usual surgical fashion at which time the site verification process is verified with a time-out procedure. This is done on the [employer] platform as well. The limb is exsanguinated with an Esmarch. Tourniquet inflated to 300 mmHg. Medial parapatellar approach is utilized. Anterior fat pad, medial and lateral menisci are removed. Patella is cut free. The focus is then to the tibial array. A stab incision is made over the mid leg area anteromedial. Dissection bluntly onto the level of bone. The pin is placed in the standard fashion. The guide is then utilized to identify the second incision point. Again blunt dissection, second pin is applied. The tibial array is applied, adjusted and then tightened. Next, the knee is flexed and the femoral array is applied. This is in the medial femoral condyle. The pins are placed individually with a guide system as well. The femoral array is applied and adjusted and tightened accordingly. The femoral checkpoint and the tibial checkpoints are then applied. Circumduction is performed. The knee is flexed and the fine registration is done for the femur after registration of the robot followed by gross points thereafter. The process is done the same on the tibia with fine registration followed by gross points. At this point, balancing is done and the plan is adjusted accordingly. This is in flexion and extension. The plan adjusted for dynamic balance of the knee. The knee is flexed. The robot is brought into the field. The saw blade is registered. The distal cut followed by the posterior chamfer cut are then done. The saw blade is changed and re-registered. The anterior cut, anterior chamfer cut on the femur are done followed by the posterior cut. The saw blade registered to the tibia and then the tibial cut is made. Excess bone is removed. Of note, the osteophytes were removed prior to the balancing step. At this point, trialing is done and found to be most adequate with the 6 x 11 mm trial polyethylene. The lug holes are drilled. The keel is punched for the tibia. The patella is sized to a 32 asymmetric. Peg holes are drilled. This did track quite nicely through the arc of motion. At this point, all trials are removed. The Exparel solution is injected to the posterior capsule, periosteal, fascial, subcutaneous layers and skin. The knee is lavaged. The tibia is cemented followed by the femur, placement of the polyethylene and finally cementation of the patella. The cement is allowed to harden. Adequate balancing is achieved and final balance (more content not included)... Normal [facility] Comment on above: Result Comment: Elec tronically Signed By: Anupam Quesada DO\rosana\Date and Time Signed: 02/01/25 07:01 EDT ABO/Rhon 01-31-2025 ABO/Rh Positive Invalid Interpretation Code [facility] Comment on above: Performed By: #### [id number] #### [facility] [address] [place] [address] ABO/Rh History Checkon 01-31 ABO/Rh History Check Verified Hx Blood Type Normal [facility] Comment on above: Performed By: #### 1 [id number] #### [facility] [address] [place] [address] ABSCon 01-31-2025 ABSC Gel Interp Negative Normal [facility] Comment on above: Performed By: #### 1 [id number] #### [facility] [address] [place] [address] BLOOD BANKOrdered By: Tete Weaver on 01-31-2025 ABO/Rh Interp Positive Invalid Interpretation Code [facility] [place] BB Subsection ABSC Gel Interp Negative (01/31/25 7:09 AM) Normal [facility] [place] BB Subsection Blood Bank ID#on 01-31-2025 BBID# [id number] Invalid Interpretation Code [facility] Comment on above: Performed By: #### 1 [id number] #### [facility] [address] [place] [address] CHEMISTRYOrdered By: Lab ROP User on 01-31-2025 Glucose [Mass/Vol] 138 mg/dL High 55 - 99 mg/dL [facility] C POC Subsection Comment on above: Result Comment: Heidy parr RN/ POC Username ISAEL CHILD Invalid Interpretation Code [facility] [place] POC Subsection Sodium [Moles/Vol] [id number] mmol/L Invalid Interpretation Code [facility] [place] POC Subsection Sodium [Moles/Vol] [id number] mmol/L Invalid Interpretation Code [facility] [place] POC Subsection Capillary Glucose POCon 01-11 Glucose [Mass/Vol] 138 mg/dL High 55-99 [facility] Comment on above: Result Comment: Heidy parr RN/ Performed By: #### 2 [id number] #### [facility] [address] [place] [id number] Discharge Instructionson Discharge Instructions Discharge Instructions EBEN ARENAS :1960 Visit Date:01/31/2025 Inpatient Discharge Instructions Your Care Team Admitting Physician - Anupam Quesada DO Attending Physician - Anupam Qeusada DO Primary Care Physician - ARSLAN JAVIER, JULIA Primary Nurse - Jad RN, Fabi Talamantes RN, Tripp Gabriel, Lauren West RN, Roberta New RN, Shasta New RN, Shasta Orona RN, Uriel Ornoa RN, Uriel Orona RN, Uriel Orona RN, Uriel Orona RN, Uriel Ocampo RN, Suzanne León, Vira Child RN, Isael Child RN, Isael Child RN, Isael De La Fuente RN, Astrid De La Fuente RN, Astrid Fu Referring Physician - Anupam Quesada DO Reason for Your Visit LEFT KNEE OA Tests Performed XR Knee 1 or 2 Views Left -- Results Pending -- Please visit your patient portal for your results or contact your primary care physician. This Is Your Medications List apixaban (Eliquis 5 mg oral tablet) baclofen (baclofen 10 mg Tab) baclofen (baclofen 10 mg Tab) caffeine (Diurex Water Pills) cephalexin (Keflex 500 mg Cap) docusate (Colace 100 mg Cap) flecainide (flecainide 50 mg Tab) hydrochlorothiazide-l isinopril (hydrochlorothiazide- lisinopril 12.5 mg-20 mg Tab) magnesium oxide (magnesium oxide 400 mg Tab) metoprolol (metoprolol succinate 25 mg ER Tab) oxycodone (oxyCODONE 5 mg Tab) rosuvastatin (rosuvastatin 5 mg Tab) Procedures Performed Total knee arthroplasty (01/31/2025), Injection of sacroiliac joint using fluoroscopic guidance (07/11/2024), Radiofrequency ablation of medial branch of lumbar nerve using fluoroscopic guidance (03/29/2024), Excision of cyst (02/04/2024), Injection into facet joint of lumbar spine using fluoroscopic guidance (01/27/2024), Arthroplasty of knee (08/05/2022), Cardioversion, Excision of lipoma, Radiofrequency ablation of medial branch of lumbar nerve using fluoroscopic guidance, Repair of meniscus, Tibial osteotomy. Discharge Vitals Temperature (Temporal Artery) 36.7 ???C Heart Rate (Monitored) 71 Respiratory Rate 16 Blood Pressure 150/71 What to do next You Need to Schedule the Following Appointments Follow Up with DEBORAH Danielson When: 02/27/2025 09:30 AM EDT Comments: Appointment has already been scheduled Call for any problems. Where: [address] [place] [id number]- [facility] (1) Medications What How Much When Instructions Next Dose New cephalexin (Keflex 500 mg Cap) 1 Capsules By Mouth 3 times a day Duration: 7 Days Pickup at [facility] New docusate (Colace 100 mg Cap) 1 Capsules By Mouth 2 times a day as needed for for constipation Pickup at [facility] New oxycodone (oxyCODONE 5 mg Tab) 1 Tablets By Mouth As Directed 1-2 po q4-6 hrs prn pain Dx: M17.12, Z96.652 Duration: 7days Pickup at [facility] Unchanged apixaban (Eliquis 5 mg oral tablet) 1 Tablets By Mouth 2 times a day Unchanged baclofen (baclofen 10 mg Tab) 1 Tablets By Mouth Every day as needed for Pain Unchanged baclofen (baclofen 10 mg Tab) 1 Tablets By Mouth At bedtime as needed for Spasm Unchanged caffeine (Diurex Water Pills) As needed for swelling Unchanged flecainide (flecainide 50 mg Tab) By Mouth Unchanged hydrochlorothiazide-l isinopril (hydrochlorothiazide- lisinopril 12.5 mg-20 mg Tab) 1 Tablets By Mouth Every day Unchanged magnesium oxide (magnesium oxide 400 mg Tab) Unchanged metoprolol (metoprolol succinate 25 mg ER Tab) 1 Tablets By Mouth Every day Unchanged rosuvastatin (rosuvastatin 5 mg Tab) 1 Tablets By Mouth Every day Pharmacy Information [facility]: [address] [place], [place] [phone] Allergies Ativan (Dizziness) LaMICtal (Agitation) Vytorin (Hives) Problems Ongoing - Any problem that you are currently receiving treatment for. Atrial fibrillation Bilateral stenosis of carotid arteries BMI 40.0-44.9, adult Epidermal cyst Erectile dysfunction History of transient ischemic attack HTN (hypertension) Hypercholesterolemia Intermittent claudication Lumbar spondylosis Morbid obesity Peripheral vascular disease Platelet disorder Seasonal allergic rhinitis Secondary polycythemia Type 2 diabetes mellitus Devices Implanted/Removed This Visit Notice: You have devices implanted this visit that may not be MRI compatible. Implanted KNEE TOTAL ROBOT ARTHROPLASTY Knee L CEMENT SIMPLEX PLAIN VISCOSITY HIGH [[id number]] (2), 01/31/2025, Unknown - PALMA: {[id number] [id number] TRIATHLON CURCIATE RETAINING FEMORAL 01/31/2025 TRIATHLON PRIMARY TIBIAL BASEPLATE 01/31/2025 TRIATHLON X3 ASYMMETRIC PATELLA 01/31/2025 TRIATHLON X3 TIBIAL BEARING INSERT - CS 01/31/2025 Education Materials [place], [place] [facility] DISCHARGE INSTRUCTIONS TOTAL KNEE ARTHROPLASTY IN (more content not included)... Normal [facility] Comment on above: Result Comment: Elec tronically Signed By: Albin NIEVES, Tripp Perry\.br\Date and Time Signed: 01/31/25 13:54 EDT Discharge Instructions Discharge Instructions EBEN ARENAS :1960 Visit Date:01/31/2025 Inpatient Discharge Instructions Your Care Team Admitting Physician - Rafael WALLACE, Anupam Anand Referring Physician - Rafael WALLACE, Anupam Anand Reason for Your Visit LEFT KNEE OA What to do next New Follow Up Appointments after Discharge Follow Up with DEBORAH Danielson When: 02/27/2025 09:30 AM EDT Comments: Appointment has already been scheduled Call for any problems. Where: [address] [place] [address]- [facility] (1) Medications What How Much When Instructions Next Dose New cephalexin (Keflex 500 mg Cap) 1 Capsules By Mouth 3 times a day Duration: 7 Days Pickup at [facility] tonight New docusate (Colace 100 mg Cap) 1 Capsules By Mouth 2 times a day as needed for for constipation Pickup at [facility] New oxycodone (oxyCODONE 5 mg Tab) 1 Tablets By Mouth As Directed 1-2 po q4-6 hrs prn pain Dx: M17.12, Z96.652 Duration: 7days Pickup at [facility] Unchanged apixaban (Eliquis 5 mg oral tablet) 1 Tablets By Mouth 2 times a day tomorrow Unchanged baclofen (baclofen 10 mg Tab) 1 Tablets By Mouth Every day as needed for Pain Unchanged baclofen (baclofen 10 mg Tab) 1 Tablets By Mouth At bedtime as needed for Spasm Unchanged caffeine (Diurex Water Pills) As needed for swelling Unchanged flecainide (flecainide 50 mg Tab) By Mouth Unchanged hydrochlorothiazide-l isinopril (hydrochlorothiazide- lisinopril 12.5 mg-20 mg Tab) 1 Tablets By Mouth Every day Unchanged magnesium oxide (magnesium oxide 400 mg Tab) Unchanged metoprolol (metoprolol succinate 25 mg ER Tab) 1 Tablets By Mouth Every day Unchanged rosuvastatin (rosuvastatin 5 mg Tab) 1 Tablets By Mouth Every day Pharmacy Information [id number]: [address] [place], [place] [phone] Devices Implanted/Removed This Visit Notice: You have devices implanted this visit that may not be MRI compatible. Implanted KNEE TOTAL ROBOT ARTHROPLASTY Knee L CEMENT SIMPLEX PLAIN VISCOSITY HIGH [[id number]] (2), 01/31/2025, Unknown - PALMA: {01}[id number]{10 }[id number] TRIATHLON CURCIATE RETAINING FEMORAL 01/31/2025 TRIATHLON PRIMARY TIBIAL BASEPLATE 01/31/2025 TRIATHLON X3 ASYMMETRIC PATELLA 01/31/2025 TRIATHLON X3 TIBIAL BEARING INSERT - CS 01/31/2025 [employer] [place], [place] [facility] DISCHARGE INSTRUCTIONS TOTAL KNEE ARTHROPLASTY INCISION CARE: Continue the daily dressing care to the knee as instructed in the hospital for 7 days postoperatively. The dressing will then be changed and worn an additional 7 days. You may then discontinue the dressing changes. Remove the dressing on the lower leg postoperative day #3 and leave this area open to the air. Please notify the office if any increase in redness, tenderness, drainage, fever, or wound separation is noted. MEDICATIONS: You may resume your home medications at the time of discharge. Pain medication as ordered. You may take up to 3,000 mg of acetaminophen (Tylenol) daily. Would suggest 650-1,000 mg three times daily. Keflex (cephalexin) 500mg as prescribed. Start with the evening dose the day of surgery. Eliquis as prescribed. Start with the morning dose the day after surgery. Pain medication has been prescribed as well. You may continue to use the pain medication every four hours as needed. Any narcotic pain medication can [...] the hospital. [facility] Discharge Instructions for TKA Page 2 Physical Therapy Cont. Continue weight bearing, as ordered, to the operated knee for four to six weeks as directed in Physical Therapy. This will be with the use of a walker or crutches initially. The Physical Therapist will help decide when to transition to a cane. Physical therapy as begun in the hospital will continue at home, possible with the web assistant of Home Health Physical Therapy or in the hospital as an outpatient. When you have become independent with the physical therapy program, this will then be discontinued as a supervised program and you will be instructed to continue the physical therapy exercises at home. Your exercises are alvarado to successful rehabilitation. You should gain full extension first, hopefully before hospital discharge, then continue to do the exercises to maintain this, and gain 90 degrees flexion by one month post-op. Do the exercises daily, twice if preferred. (more content not included)... Normal [facility] Comment on above: Result Comment: Elec tronically Signed By: Lauren Gabriel.gila\Date and Time Signed: 01/31/25 11:26 EDT [facility] [place] CAPILLARY GLUCOSE POCon 01-31-2025 Glucose [Mass/Vol] 138 mg/dL High 55 - 99 mg/dL [facility] Comment on above: Notified RN/MD Interpretation and review of laboratory results Abnormal [facility] Original Ordering Provider: DO Anupam Quesada [facility] Main OR PACU I Recordon 01-11 Main OR PACU I Record Main OR PACU I Rec ord PACU Phase I Document Type FT Summary Primary Physician: Anupam Quesada DO Finalized Date/Time: 01/31/25 11:43:31 Pt. Name: DAGOBERTO EBEN Cortez./Sex: 1960 Male Med Rec #: [id number] Physician: Anupam Quesada DO Financial #: [id number] Pt. Type: A Room/Bed: [place] [address] Admit/Disch: 01/31/25 06:32:02 - Institution: Case Times PACU I FT Pre-Care Text: Identifies barriers to communication and implements measures to provide psychological support Develops individualized plan of care, and ensures continuity of care Maintains patient's dignity and privacy, and maintains patient confidentiality Identifies and reports philosophical, cultural, and spiritual beliefs and values Identifies individual values and wishes concerning care Implements aseptic technique, and administers prescribed antibiotic therapy and immunizing agents as ordered Evaluates postoperative tissue perfusion Implements thermoregulation measures, and monitors body temperature Evaluates postoperative respiratory status Evaluates postoperative cardiac status Evaluates postoperative neurological status Assesses pain control, collaborated in initiating patient-controlled analgesia and implements alternative methods of pain control Verifies allergies, administers prescribed medications and solutions, evaluates response to medications Entry 1 In PACU I 01/31/25 10:45:00 Discharge from PACU 01/31/25 11:15:00 I Outcomes Met? Yes Last Modified By: Jad NIEVES, Fabi Campbell 01/31/25 11:41:57 Post-Care Text: The patient demonstrates knowledge of [...] or her perioperative plan of care The patient is free from signs and [...] medication(s), safely administered during the perioperative period Acuity Level PACU I FT Entry 1 Start Time 01/31/25 10:45:00 Stop Time 01/31/25 11:15:00 Acuity Level Acuity Level I Last Modified By: Fabi Street RN 01/31/25 11:43:29 Finalized By: Fabi Street RN Document Signatures Signed By: Fabi Street RN 01/31/25 11:43 Normal [facility] Main OR PACU II Recordon Main OR PACU II Record Main OR PACU II Record PACU Phase II Document Type FT Summary Primary Physician: Anupam Quesada DO Finalized Date/Time: 01/31/25 14:55:36 Pt. Name: EBEN ARENAS./Sex: 1960 Male Med Rec #: [id number] Physician: Anupam Quesada DO Financial #: [id number] Pt. Type: A Room/Bed: [facility]/ Admit/Disch: 01/31/25 06:32:02 - Institution: Case Times PACU II FT [...] to medications Entry 1 In PACU II 01/31/25 11:20:00 Discharge from PACU 01/31/25 15:00:00 II Outcomes Met? Yes Last Modified By: Lauren Gabriel 01/31/25 14:55:35 Post-Care Text: The patient demonstrates knowledge of [...] administered during the perioperative period Finalized By: Lauren Gabriel Document Signatures Signed By: Lauren Gabriel 01/31/25 14:55 Normal [facility] Main OR Preoperative Recordo n 01-31-2025 Main OR Preoperative Record Main OR Preoperative Record PreOp Document Type FT Summary Primary Physician: Anupam Quesada DO Finalized Date/Time: 01/31/25 09:26:04 Pt. Name: EBEN ARENAS D.O.B./Sex: 1960 Male Med Rec #: [id number] Physician: Anupam Quesada DO Financial #: [id number] Pt. Type: A Room/Bed: [place] [address] Admit/Disch: 01/31/25 06:32:02 - Institution: Case Times PreOp FT Pre-Care Text: Verifies consent for planned procedure, identifies individual values and wishes concerning care, includes family members in perioperative teaching Entry 1 Patient Times. In Pre Surgery 01/31/25 06:35:00 Out Pre Surgery 01/31/25 08:30:00 Outcomes Met? Yes Last Modified By: Rosa Crook RN 01/31/25 09:26:01 Post-Care Text: The patient participates in decisions affecting his or her perioperative plan of care Finalized By: Rosa Crook RN Document Signatures Signed By: Rosa Crook RN 01/31/25 09:26 Normal [facility] Proceduralon 01-31-2025 Procedural Procedural Patient: EBEN ARENAS Age: 64 years Sex: Male : 1960 Associated Diagnoses: None Author: Dean Hunter MD Procedure Nerve Block Block Type: Adductor canal block. Laterality: Left. Informed consent for anesthesia management: Anesthesia options discussed including nerve block, Description of the procedure, risks, benefits, and alternatives was provided, The patient's questions were addressed. Time out: Confirmed correct patient, procedure and site. Time: Date/Time 01/31/2025 07:55:00. Indication: Block for postoperative pain management as requested by surgeon. Anesthesia Method: IV Sedation with monitored anesthesia care, The patient remained awake and able to interact in a meaningful way throughout the procedure. Preparation: The patient was placed in the following position Supine, Continuous pulse oximetry applied, Using maximal sterile barrier technique per current [facility] guidelines including hand hygeine, Guidance (Ultrasound used to identify anatomical landmarks, Using sterile gel and probe covers, Permanent image retained), The site was prepped with ChloraPrep. Procedure: Anesthetic Agent local 3cc 2% lido; 21g 100m block nedle with US; 20cc Ropivicaine 0.25% with epi in increments; needle tip visualized throughout; low pressure injection, Needle was inserted without pain or parasthesia in the conscious patient, Number of attempts 1, Negative attempt at aspiration for blood, Medial and lateral spread of the anesthestic was observed, Periodic negative attempts at aspiration of blood were made as the local was injected, No pain or parathesia were elicited with injection of the anesthetic in the conscious patient, It was idetified that the correct anesthetic agent was administered to the correct site. Complications: None, The patient tolerated the procedure as expected. Normal [facility] XR KNEE 1 OR 2 VIEWS LEFTon 01-31-2025 Exam Date/Time: 01/31/2025 11:09 EDT Reason for Exam: Post-op evaluation;Other (please specify) Report IMPRESSION: NEGATIVE POSTOP RIGHT LEFT KNEE. CLINICAL HISTORY: Post-op evaluation COMPARISON: 01/04/2025 FINDINGS: 4 views of the left knee. Interval placement bipolar knee replacement. No fracture. No abnormal lucency bone prosthetic interface. Ordering Provider: Anupam Quesada FINAL REPORT Dictated: 01/31/2025 5:38 pm SignZohaib chou MD Signed (Electronic Signature): 01/31/2025 5:38 pm Signed by: Zohaib Curran MD Transcribed by: KURT Technologist: OLGA LIDIA [facility] [facility] [place] Radiology, RadiologistMD - 01/31/2025 Exam Date/Time: 01/31/2025 11:09 EDT Reason for Exam: Post-op evaluation;Other (please specify) Report IMPRESSION: NEGATIVE POSTOP RIGHT LEFT KNEE. CLINICAL HISTORY: Post-op evaluation COMPARISON: 01/04/2025 FINDINGS: 4 views of the left knee. Interval placement bipolar knee replacement. No fracture. No abnormal lucency bone prosthetic interface. Ordering Provider: Anupam Quesada FINAL REPORT Dictated: 01/31/2025 5:38 pm Zohaib Curran MD Signed (Electronic Signature): 01/31/2025 5:38 pm Signed by: Zohaib Curran MD Transcribed by: KURT Technologist: OLGA LIDIA [facility] Radiology Study observation (narrative) [facility] XR KNEE 1 OR 2 VIEWS LEFTOrd ered By: Radiologist Radiology on 01-31-2025 [facility] Work Phone: XR Knee 1 or 2 Views Lefton 01-31-2025 XR Knee 1 or 2 Views Left Exam Date/Time: 01/31/2025 11:09 EDT Reason for Exam: Post-op evaluation;Other (please specify) Report IMPRESSION: NEGATIVE POSTOP RIGHT LEFT KNEE. CLINICAL HISTORY: Post-op evaluation COMPARISON: 01/04/2025 FINDINGS: 4 views of the left knee. Interval placement bipolar knee replacement. No fracture. No abnormal lucency bone prosthetic interface. Ordering Provider: Anupam Quesada FINAL REPORT Dictated: 01/31/2025 5:38 pm Zohaib Curran MD Signed (Electronic Signature): 01/31/2025 5:38 pm Signed by: Zohaib Curran MD Transcribed by: KURT Technologist: OLGA LIDIA Nicole [facility] ECG 12 lead (Clinic Performe d)on 01-15-2025 Sinus bradycardia at 55 bpm, normal intervals. Baseline artifact. Compared to EKG of 05/18/2024, heart rate has decreased. [facility] Work Phone: [facility] Work Phone: BMPon 01-12-2025 Anion gap [Moles/Vol] 12 mmol/L Normal 6-16 [facility] Comment on above: Performed By: #### 2 [id number] #### [facility] [address] [place] [address] Calcium [Mass/Vol] 9.2 mg/dL Normal 8.9-11.1 [facility] Comment on above: Performed By: #### 2 [id number] #### [facility] [address] [place] [address] Chloride [Moles/Vol] 106 mmol/L Normal 101-111 [facility] Comment on above: Performed By: #### 2 [id number] #### [facility] [address] [place] [address] CO2 [Moles/Vol] 25 mmol/L Normal 21-31 [facility] Comment on above: Performed By: #### 2 [id number] #### [facility] [address] [place] [address] Creatinine [Mass/Vol] 0.8 mg/dL Normal 0.5-1.3 [facility] Comment on above: Performed By: #### 2 [id number] #### [facility] [address] [place] [address] Glucose [Mass/Vol] 85 mg/dL Normal 55-199 [facility] Comment on above: Performed By: #### 2 [id number] #### [facility] [address] [place] [address] Potassium [Moles/Vol] 3.7 mmol/L Normal 3.5-5.3 [facility] Comment on above: Performed By: #### 2 [id number] #### [facility] [address] [address] Sodium [Moles/Vol] 139 mmol/L Normal 135-145 [facility] Comment on above: Performed By: #### 2 [id number] #### [facility] [address] [place] [address] Urea nitrogen [Mass/Vol] 10 mg/dL Normal 5-21 [facility] Comment on above: Performed By: #### 2 [id number] #### [facility] [address] [place] [address] Urea nitrogen/Creatinine [Mass ratio] 12 No Units Normal 10-20 [facility] Comment on above: Performed By: #### 2 [id number] #### [facility] [address] [place] [address] CBC w/ Auto Diffon 5 Basophils/100 WBC (Bld) 0.9 % Normal 0.0-2.0 [facility] Comment on above: Performed By: #### 2 [id number] #### [facility] [address] [place] [address] Basophils/Leukocytes Auto (Bld) [Pure # fraction] 0.1 E9/L Normal 0.0-0.2 [facility] Comment on above: Performed By: #### 2 [id number] #### [facility] [address] [place] [address] Eosinophils (Bld) [#/Vol] 0.5 E9/L Normal 0.0-0.5 [facility] Comment on above: Performed By: #### 2 [id number] #### [facility] [address] [place] [address] Eosinophils/100 WBC (Bld) 7.6 % Normal 0.0-8.0 [facility] Comment on above: Performed By: #### 2 [id number] #### [facility] [address] [place] [address] Erythrocyte distribution width (RBC) [Ratio] 16.7 % High 10.9-14.2 [facility] Comment on above: Performed By: #### 2 [id number] #### [facility] [address] [place] [address] Hematocrit (Bld) [Volume fraction] 52.1 % High 37.7-49.0 [facility] Comment on above: Performed By: #### 2 [id number] #### [facility] [address] [place] [address] Hemoglobin (Bld) [Mass/Vol] 17.5 g/dL Normal 13.5-17.5 [facility] Comment on above: Performed By: #### 2 [id number] #### [facility] [address] [place] [address] Lymphocytes (Bld) [#/Vol] 1.6 E9/L Normal 1.0-4.0 [facility] Comment on above: Performed By: #### 2 [id number] #### [facility] [address] [place] [address] Lymphocytes/100 WBC (Bld) 23.7 % Normal 14.0-50.0 [facility] Comment on above: Performed By: #### 2 [id number] #### [facility] [address] [place] [address] MCH (RBC) [Entitic mass] 29.1 pg Normal 27.0-34.0 [facility] Comment on above: Performed By: #### 2 [id number] #### [facility] [address] [place] [address] MCHC (RBC) [Mass/Vol] 33.7 g/dL Normal 31.4-36.0 [facility] Comment on above: Performed By: #### 2 [id number] #### [facility] [address] [place] [address] MCV (RBC) [Entitic vol] 86.3 fL Normal 80.0-100.0 [facility] Comment on above: Performed By: #### 2 [id number] #### [facility] [address] [place] [address] Monocytes (Bld) [#/Vol] 0.8 E9/L Normal 0.2-1.0 [facility] Comment on above: Performed By: #### 2 [id number] #### [facility] [address] [place] [address] Neutrophils (Bld) [#/Vol] 3.8 E9/L Normal 2.0-7.5 [facility] Comment on above: Performed By: #### 2 [id number] #### [facility] [address] [place] [address] Neutrophils/100 WBC (Bld) 55.8 % Normal 36.0-75.0 [facility] Comment on above: Performed By: #### 2 [id number] #### [facility] [address] [place] [address] Platelet mean volume (Bld) [Entitic vol] 11.1 fL High 6.4-10.8 [facility] Comment on above: Performed By: #### 2 [id number] #### [facility] [address] [place] [address] Platelets (Bld) [#/Vol] 135.0 E9/L Low 150.0-500.0 [facility] Comment on above: Performed By: #### 2 [id number] #### [facility] [address] [place] [address] RBC (Bld) [#/Vol] 6.0 E12/L High 4.3-5.9 [facility] Comment on above: Performed By: #### 2 [id number] #### [facility] [address] [place] [address] WBC corrected for nucl RBC Auto (Bld) [#/Vol] 6.8 E9/L Normal 4.0-11.0 [facility] Comment on above: Result Comment: Katalina pheral smear review performed. Performed By: #### 2 [id number] #### [facility] [address] [place] [address] CHEMISTRYOrdered By: SYSTEM SYSTEM on 01-12-2025 Anion gap [Moles/Vol] 12 mmol/L Normal 6 - 16 mEq/L R emisol Chem Calcium [Mass/Vol] 9.2 mg/dL Normal 8.9 - 11. 1 mg/dL [facility] Chloride [Moles/Vol] 106 mmol/L Normal 101 - 1 11 mmol/L [facility] CO2 [Moles/Vol] 25 mmol/L Normal 21 - 31 mmol/L Remis ol Chem Creatinine [Mass/Vol] 0.8 mg/dL Normal 0.5 - 1.3 mg/dL [facility] Chem eGFR 97 mL/min/1.73 m2 Normal >=59mL/min /1.7 3 m2 [facility] Glucose [Mass/Vol] 85 mg/dL Normal 55 - 199 mg/dL Re misol Chem Potassium [Moles/Vol] 3.7 mmol/L Normal 3.5 - 5.3 mmol/L [facility] Sodium [Moles/Vol] 139 mmol/L Normal 135 - 145 mmol/L [facility] Urea nitrogen [Mass/Vol] 10 mg/dL Normal 5 - 21 mg/dL [facility] Urea nitrogen/Creatinine [Mass ratio] 12 mg/mg Normal 10 - [address] LOWER EXTREMITY W/O CONTR AST Lloyd 01-12-2025 Exam Date/Time: 01/12/2025 14:43 EDT Reason for Exam: LEFT KNEE OA Report IMPRESSION: LEFT KNEE OA. CT OF THE LEFT LOWER EXTREMITY WITHOUT INTRAVENOUS CONTRAST MEDIUM. HISTORY: LEFT KNEE OA. TECHNICAL FACTORS: CT imaging of the left lower extremity was obtained and formatted as 2 mm contiguous axial images through the left hip and 1 mm contiguous axial images through the left knee. Sagittal and coronal reconstructions of the left knee were obtained during postprocessing. No intravenous contrast medium utilized. Comparison: None. Findings: Left hip shows no fracture, dislocation or bone lesion. Joint spaces maintained. Left knee shows narrowing of the lateral aspect of the patellofemoral compartment with enthesophyte formation identified along the lateral medial aspect of the patella, and the anterior aspect of the femoral condyle. Narrowing of the medial compartment is identified with osteophyte formation along the medial lateral aspects of the medial and lateral femoral condyles. No fracture, dislocation, bone lesion, effusion is identified. All CT scans at this facility use dose modulation, iterative reconstruction, and/or weight based dosing when appropriate to reduce radiation dose to as low as reasonably achievable. Technical Comments: Ordering Provider: Anupam Quesada FINAL REPORT Dictated: 01/12/2025 3:04 pm Zohaib Curran MD Signed (Electronic Signature): 01/12/2025 3:04 pm Signed by: Zohaib Curran MD Transcribed by: KURT Technologist: OLGA LIDIA [facility] [place] [facility] [place] Radiology, Radiologist, MD - 01/12/2025 Exam Date/Time: 01/12/2025 14:43 EDT Reason for Exam: LEFT KNEE OA Report IMPRESSION: LEFT KNEE OA. CT OF THE LEFT LOWER EXTREMITY WITHOUT INTRAVENOUS CONTRAST MEDIUM. HISTORY: LEFT KNEE OA. TECHNICAL FACTORS: CT imaging of the left lower extremity was obtained and formatted as 2 mm contiguous axial images through the left hip and 1 mm contiguous axial images through the left knee. Sagittal and coronal reconstructions of the left knee were obtained during postprocessing. No intravenous contrast medium utilized. Comparison: None. Findings: Left hip shows no fracture, dislocation or bone lesion. Joint spaces maintained. Left knee shows narrowing of the lateral aspect of the patellofemoral compartment with enthesophyte formation identified along the lateral medial aspect of the patella, and the anterior aspect of the femoral condyle. Narrowing of the medial compartment is identified with osteophyte formation along the medial lateral aspects of the medial and lateral femoral condyles. No fracture, dislocation, bone lesion, effusion is identified. All CT scans at this facility use dose modulation, iterative reconstruction, and/or weight based dosing when appropriate to reduce radiation dose to as low as reasonably achievable. Technical Comments: Ordering Provider: Anupam Quesada FINAL REPORT Dictated: 01/12/2025 3:04 pm Zohaib Curran MD Signed (Electronic Signature): 01/12/2025 3:04 pm Signed by: Zohaib Curran MD Transcribed by: KURT Technologist: OLGA LIDIA [facility] Radiology Study observation (narrative) [facility] CT LOWER EXTREMITY W/O CONTR AST LEFTOrdered By: Radiologist Radiology on 01-12-2025 [facility] Work Phone: CT Lower Extremity w/o Contr ast Lefton 01-12-2025 CT Lower Extremity w/o Contrast Left Exam Date/Time: 01/12/2025 14:43 EDT Reason for Exam: LEFT KNEE OA Report IMPRESSION: LEFT KNEE OA. CT OF THE LEFT LOWER EXTREMITY WITHOUT INTRAVENOUS CONTRAST MEDIUM. HISTORY: LEFT KNEE OA. TECHNICAL FACTORS: CT imaging of the left lower extremity was obtained and formatted as 2 mm contiguous axial images through the left hip and 1 mm contiguous axial images through the left knee. Sagittal and coronal reconstructions of the left knee were obtained during postprocessing. No intravenous contrast medium utilized. Comparison: None. Findings: Left hip shows no fracture, dislocation or bone lesion. Joint spaces maintained. Left knee shows narrowing of the lateral aspect of the patellofemoral compartment with enthesophyte formation identified along the lateral medial aspect of the patella, and the anterior aspect of the femoral condyle. Narrowing of the medial compartment is identified with osteophyte formation along the medial lateral aspects of the medial and lateral femoral condyles. No fracture, dislocation, bone lesion, effusion is identified. All CT scans at this facility use dose modulation, iterative reconstruction, and/or weight based dosing when appropriate to reduce radiation dose to as low as reasonably achievable. Technical Comments: Ordering Provider: Anupam Quesada FINAL REPORT Dictated: 01/12/2025 3:04 pm Zohaib Curran MD Signed (Electronic Signature): 01/12/2025 3:04 pm Signed by: Zohaib Curran MD Transcribed by: KURT Technologist: OLGA LIDIA Nicole [facility] HEMATOLOGYOrdered By: SYSTEM SYSTEM on 01-12-2025 Basophils/100 WBC (Bld) 0.9 % Normal 0.0 - 2.0 % [facility] Basophils/Leukocytes Auto (Bld) [Pure # fraction] 0.1 E9/L Normal 0.0 - 0.2 E9/L [facility] Eosinophils (Bld) [#/Vol] 0.5 E9/L Normal 0.0 - 0.5 E9/L [facility] Eosinophils/100 WBC (Bld) 7.6 % Normal 0.0 - 8.0 % [facility] Erythrocyte distribution width (RBC) [Ratio] 16.7 % High 10.9 - 14.2 % [facility] Hematocrit (Bld) [Volume fraction] 52.1 % High 37.7 - 49.0 % [facility] Hemoglobin (Bld) [Mass/Vol] 17.5 g/dL Normal 13.5 - 17.5 gm/dL [facility] Lymphocytes (Bld) [#/Vol] 1.6 E9/L Normal 1.0 - 4.0 E9/L [facility] Lymphocytes/100 WBC (Bld) 23.7 % Normal 14.0 - 50.0 % [facility] MCH (RBC) [Entitic mass] 29.1 pg Normal 27.0 - 34.0 pg [facility] MCHC (RBC) [Mass/Vol] 33.7 g/dL Normal 31.4 - 36.0 gm/dL [facility] MCV (RBC) [Entitic vol] 86.3 fL Normal 80.0 - 100.0 fL [facility] Monocytes (Bld) [#/Vol] 0.8 E9/L Normal 0.2 - 1.0 E9/L [facility] Monocytes/100 WBC (Bld) 12.0 % Normal 4.0 - 14.0 % [facility] Neutrophils (Bld) [#/Vol] 3.8 E9/L Normal 2.0 - 7.5 E9/L [facility] Neutrophils/100 WBC (Bld) 55.8 % Normal 36.0 - 75.0 % [facility] Platelet mean volume (Bld) [Entitic vol] 11.1 fL High 6.4 - 10.8 fL [facility] Platelets (Bld) [#/Vol] 135.0 E9/L Low 150.0 - 500.0 E9/L [facility] RBC (Bld) [#/Vol] 6.0 E12/L High 4.3 - 5.9 E12/L [facility] WBC corrected for nucl RBC Auto (Bld) [#/Vol] 6.8 E9/L Normal 4.0 - 11.0 E9/L [facility] Comment on above: Result Comment: Katalina pheral smear review performed. UA WITH CULT RFLXon 01-13-20 BILIRUBIN:PRTHR:PT:URI NE:ORD:TEST STRIP.AUTOMATED Negative Negative mg/dL [facility] CLARITY:TYPE:PT:URINE: NOM: Clear Clear [facility] CLASS:TYPE:PT:URINE COLLECTION METHOD:NOM:* Clean Catch [facility] COLOR:TYPE:PT:URINE:NO M:AUTO Light-Yellow Yellow [facility] Comment on above: Microscopic readings are only performed on those samples that meet specific criteria set forth by [facility]. [facility] [place] [facility] [place] PH:LSCNC:PT:URINE:QN:T EST STRIP 6.0 5.0 - 9.0 [facility] SPECIFIC GRAVITY:RDEN:PT:URINE: QN:TEST STRIP 1.016 1.005 - 1.030 [facility] GLUCOSE:PRTHR:PT:URINE :ORD:TEST STRIP Trace Abnormal Negative mg/dL [facility] HEMOGLOBIN:MCNC:PT:URI NE:SEMIQN:TEST STRIP.AUTOMATED Negative Negative mg/dL [facility] Interpretation and review of laboratory results Abnormal [facility] KETONES:PRTHR:PT:URINE :ORD:TEST STRIP.AUTOMATED Negative Negative mg/dL [facility] LEUKOCYTE ESTERASE:PRTHR:PT:URIN E:ORD:TEST STRIP.AUTOMATED Negative Negative CD:[id number] [facility] NITRITE:PRTHR:PT:URINE :ORD:TEST STRIP.AUTOMATED Negative Negative mg/dL [facility] PROTEIN:PRTHR:PT:URINE :ORD:TEST STRIP Negative Negative mg/dL [facility] UROBILINOGEN:MCNC:PT:U RINE:SEMIQN:TEST STRIP Negative Negative mg/dL [facility] Original Ordering Provider: DO Anupam Quesada [facility] UA with Cult Rflxon 01-13-20 25 Bilirubin Ql (U) Negative Normal Negative [facility] Comment on above: Performed By: #### 4 [id number] #### [facility] [address] [place] [address] Clarity (U) Clear Normal Clear [facility] Comment on above: Performed By: #### 4 [id number] #### [facility] [address] [place] [address] Color (U) Light-Yellow Normal Yellow [facility] Comment on above: Result Comment: Micr oscopic readings are only performed on those samples that meet specific criteria set forth by [facility]. Performed By: #### 4 [id number] #### [facility] [address] [place] [address] Glucose Ql (U) Trace Abnormal Negative [facility] Comment on above: Performed By: #### 4 [id number] #### [facility] [address] [place] [address] Hemoglobin Auto test strip (U) [Mass/Vol] Negative Normal Negative [facility] Comment on above: Performed By: #### 4 [id number] #### [facility] [address] [place] [address] Ketones Auto test strip Ql (U) Negative Normal Negative [facility] Comment on above: Performed By: #### 4 [id number] #### [facility] [address] [place] [address] Leukocyte esterase Auto test strip Ql (U) Negative Normal Negative [facility] Comment on above: Performed By: #### 4 [id number] #### [facility] [address] [place] [address] Nitrite Auto test strip Ql (U) Negative Normal Negative [facility] Comment on above: Performed By: #### 4 [id number] #### [facility] [address] [place] [address] pH (U) 6.0 [pH] Invalid Interpretation Code 5.0-9.0 [facility] Comment on above: Performed By: #### 4 [id number] #### [facility] [address] [place] [address] Protein Ql (U) Negative Normal Negative [facility] Comment on above: Performed By: #### 4 [id number] #### [facility] [address] [place] [address] Specific gravity (U) [Rel density] 1.016 Invalid Interpretation Code 1.005-1.030 [facility] Comment on above: Performed By: #### 4 [id number] #### [facility] [address] [place] [address] Urobilinogen (U) [Mass/Vol] Negative Normal Negative [facility] Comment on above: Performed By: #### 4 [id number] #### [facility] [address] [place] [address] Type of Urine collection method Clean Catch Normal [facility] Comment on above: Performed By: #### 4 [id number] #### [facility] [address] [place] [address] URINALYSISOrdered By: SYSTEM SYSTEM on 01-12-2025 Bilirubin Ql (U) Negative Normal Negativemg/dL [facility] UA Auto SS Clarity (U) Clear (01/12/25 1:56 PM) Normal Clear [facility] UA Auto SS Color (U) Light-Yellow 1 (01/12/25 1:56 PM) Normal Yellow [facility] UA Auto SS Comment on above: Interpretive Data: M icroscopic readings are only performed on those samples that meet specific criteria set forth by [facility]. Glucose Ql (U) Trace mg/dL Invalid Interpretation Code Negativemg/dL [facility] UA Auto SS Hemoglobin Auto test strip (U) [Mass/Vol] Negative Normal Negativemg/dL [facility] UA Aut o SS Ketones Auto test strip Ql (U) Negative Normal Negativemg/dL [facility] UA Auto SS Leukocyte esterase Auto test strip Ql (U) Negative Normal NegativeLeu/uL [facility] A uto SS Nitrite Auto test strip Ql (U) Negative Normal Negativemg/dL [facility] UA Auto SS pH (U) 6.0 *NA* (01/12/25 1:56 PM) Invalid Interpretation Code 5.0 - 9.0 [facility] UA Auto SS Protein Ql (U) Negative Normal Negativemg/dL [facility] UA Auto SS Specific gravity (U) [Rel density] 1.016 *NA* (01/12/25 1:56 PM) Invalid Interpretation Code 1.005 - 1.030 [facility] UA Auto SS Urobilinogen (U) [Mass/Vol] Negative Normal Negativemg/dL [facility] UA Auto SS URINALYSISOrdered By: Tripp Talamantes on 01-12-2025 UA Spec Desc Clean Catch (01/12/25 1:56 PM) Normal [facility] UA Auto SS eGFRon 01-12-2025 eGFR 97 mL/min/1.73 m2 Normal >=59 [facility] Comment on above: Performed By: #### 1 [id number] #### [facility] [address] [place] [address] XR Knee - left 3 [facility] Result: X-rays AP bilateral weight bearing, bilateral sunrise and bilateral laterals of the knee total of six views with permanent images are saved to the record does show the well-fixed, well-aligned total knee arthroplasty on the right. No evidence of fracture, loosening or catastrophic wear. On the left side, he does have advanced end stage osteoarthritis with bone on bone change, varus. The disease does appear to be tricompartmental overall. [facility] Radiology Study observation (narrative) [facility] XR Knee - right 3 [facility] Result: X-rays AP bilateral weight bearing, bilateral sunrise and bilateral laterals of the knee total of six views with permanent images are saved to the record does show the well-fixed, well-aligned total knee arthroplasty on the right. No evidence of fracture, loosening or catastrophic wear. On the left side, he does have advanced end stage osteoarthritis with bone on bone change, varus. The disease does appear to be tricompartmental overall. [facility] Radiology Study observation (narrative) [facility] Panel Informationon 11-09 Rolanda Sotelo MA 11/11/2024 7:45 AM L Inj/Asp: R glenohumeral on 11/09/2024 1:59 PM Indications: pain Details: 22 G needle Medications: 1 mL betamethasone acetate-betamethasone sodium phosphate 6 (3-3) MG/ML [facility] No Panel Informationon 10-26 Rolanda Sotelo MA 10/31/2024 7:42 AM L Inj/Asp: L glenohumeral on 10/26/2024 10:27 AM Indications: pain Details: 22 G needle, ultrasound-guided Medications: 1 mL betamethasone acetate-betamethasone sodium phosphate 6 (3-3) MG/ML [facility] CNOVSPon 10-25-2024 CNOVSP Visit (SP) Office ([facility]) EBEN ARENAS ([id number]) 1960 M Date Time Provider Department 10/25/24 1:30 PM MACKENZIE HOPSON During your visit today, we recorded the following information about you: Temperature Pulse Blood pressure Weight 97.7 degrees 60/minute 143/75 130.6 kg Mackenzie Hopson APRN.DIRECTOR OF ASSESSING 10/25/2024 3:19 PM Signed PATIENT NAME: Eben Arenas CLINIC NO.: [id number] ATTENDING PHYSICIAN: Anselmo Mcpherson MD DATE OF SERVICE: October 25, 2024 Some of the elements of this note have been copied from Anselmo Mcpherson MD's previous progress note dated 06/24/2024. All the information has been reviewed carefully. Dear Dr. APONTE here is an update on a follow up visit on male Eben Arenas at the clinic October 25, 2024 Diagnosis: 1. 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 Interval History: Eben Arenas is a 63 year old male here for follow up and consideration of phlebotomy. He takes his testosterone every 2 weeks. Overall he is doing well. He states he checks his hemoglobin at home and noticed it was elevated. He reports he was seen in the ED last week for pain in his left shoulder. He was found to have a rotator cuff tear. He was discharged with a medrol dose pack, muscle relaxer, and pain medicine. He was given a sling and will be seeing Ortho this week. He states he always feels so much better after phlebotomy. He states he can tell if he goes too long, he starts to feel like crap. He continues to follow with Cardiology for his Atrial fibrillation. He denies any chest pain or palpitations. Taking metoprolol and his rate has been regular. PAST MEDICAL HISTORY Diagnosis Date Former smoker HLD (hyperlipidemia) [place] (hard of hearing) HTN (hypertension) Long-term use of aspirin therapy OA (osteoarthritis) of knee Polycythemia S/P right knee arthroscopy TIA (transient ischemic attack) Social History Tobacco Use Smoking status: Former Passive exposure: Past Smokeless tobacco: Former Types: Chew Quit date: 09/12/2016 Tobacco comments: QUIT 15 YEARS AGO Vaping Use Vaping status: Never Used Substance Use Topics Alcohol use: Yes Comment: rare Drug use: No FAMILY HISTORY Problem Relation Age of Onset Lipids Mother Hypertension Mother Hypertension Father Lipids Father Past medical, social and family history reviewed without any changes. REVIEW OF SYSTEMS Full ROS elicited today and reported as negative, except as documented in Interval history. PHYSICAL EXAMINATION: BP 143/75 Pulse 60 Temp (Src) 97.7 (Oral) Wt 287 lb 13 oz (130.6kg) SpO2 95% Last 3 Encounter Wt Readings: Date: Wt: 10/25/2024 130.6 kg (287 lb 13 oz) 06/24/2024 130.2 kg (287 lb 0.6 oz) 03/22/2024 130 kg (286 lb 9.6 oz) General appearance:ECOG PERFORMANCE STATUS: 0- Fully active, able to carry on all pre-disease performance w/o restriction. Patient in NAD. Skin: Skin color, texture, turgor normal. No rashes or lesions. Eyes: Anicteric sclera. Pupils are equally round and reactive to light. Extraocular movements are intact. Lymph Nodes: No cervical, supraclavicular, axillary or inguinal adenopathy. Oropharynx: Lips, mucosa, and tongue normal. Lungs clear to auscultation, No wheezing or rhonchi Heart: RRR without murmur, gallop, or rubs. Abdomen soft, non-tender. No masses, organomegaly Muskl: limited ROM of left shoulder due to pain. Neuro: Gait and speech normal. Reflexes normal and symmetric. Muscular strength intact. Sensation grossly intact. LABS: Glucose (mg/dL) Date Value 10/21/2024 166 10/21/2019 Requisitioning entry error Potassium (mmol/L) Date Value 10/21/2024 4.3 10/21/2019 Requisitioning entry error Sodium (mmol/L) Date Value 10/21/2024 139 10/21/2019 Requisitioning entry error Chloride (mmol/L) Date Value 10/21/2024 104 10/21/2019 Requisitioning entry error CO2 (mmol/L) Date Value 10/21/2024 28 10/21/2019 Requisitioning entry error Creatinine (mg/dL) Date Value 10/21/2024 0.99 10/21/2019 Requisitioning entry error BUN (mg/dL) Date Value 10/21/2024 13 10/21/2019 Requisitioning entry error Anion Gap (mmol/L) Date Value 10/21/2024 7 10/21/2019 Requisitioning entry error Calcium (mg/dL) Date Value 10/21/2019 Requisitioning entry error Calcium, Total (mg/dL) Date Value 10/21/2024 9.3 Protein, Total (g/dL) Date Value 10/21/2024 6.8 10/21/2019 Requisitioning entry error Albumin (g/dL) Date Value 10/21/2024 4.1 10/21/2019 Requisitioning entry error Bilirubin, Total (mg/dL) Date Value 10/21/2024 0.9 10/21/2019 Requisitioning entry error Alkaline Phosphatase (U/L) Date Value 10/21/2024 75 10/21/2019 Requisitioning entry error (more content not included)... Normal [facility] Basophils Auto (Bld) [#/Vol] on 10-21-2024 Basophils (Bld) [#/Vol] Automated basophil count <0.11 [facility] Basophils/100 WBC Auto (Bld) on 10-21-2024 Basophils/100 WBC (Bld) Automated basophil % [facility] Blood manual differential co mment interpretation narrativeon 10-21-2024 Manual differential comment Edwin (Bld) [Interp] Blood manual differential comment interpretation narrative [facility] CBC W Auto Differential pane l (Bld)on 10-21-2024 Basophils (Bld) [#/Vol] 0.03 10*3/uL Normal <0.11 [facility] Comment on above: Order Comment: Speci men Type: BLOOD SPECIMEN Ordering Facility: [facility] Address: [address] [place] [address] Performed By: #### 5 0190-8, 6-4 #### [facility] CLIA [id number] [address] [place] [address] [place] Basophils/100 WBC (Bld) 0.2 % Normal [facility] Comment on above: Order Comment: Speci men Type: BLOOD SPECIMEN Ordering Facility: [facility] Address: [address] [place] [address] Performed By: #### 5 0190-8, 2276-4 #### [facility] CLIA [id number] [address] [place] [address] [place] Differential cell count method Nom (Bld) Auto Normal [facility] Comment on above: Order Comment: Speci men Type: BLOOD SPECIMEN Ordering Facility: [facility] Address: [address] [place] [address] Performed By: #### 5 0190-8, 2276-01 #### [facility] CLIA [id number] [address] [place] [address] [place] Eosinophils (Bld) [#/Vol] 10*3/uL Normal <0.46 [facility] Comment on above: Order Comment: Speci men Type: BLOOD SPECIMEN Ordering Facility: [facility] Address: [address] [place] [address] Performed By: #### 5 0190-8, 2276-01 #### [facility] CLIA [id number] [address] [place] [address] [place] Eosinophils/100 WBC (Bld) 0.0 % Normal [facility] Comment on above: Order Comment: Speci men Type: BLOOD SPECIMEN Ordering Facility: [facility] Address: [address] [place] [address] Performed By: #### 5 0190-8, 2276-01 #### [facility] CLIA [id number] [address] [place] [address] [place] Erythrocyte distribution width (RBC) [Ratio] 13.9 % Normal 11.5-15.0 [facility] Comment on above: Order Comment: Speci men Type: BLOOD SPECIMEN Ordering Facility: [facility] Address: [address] [place] [address] Performed By: #### 5 0190-8, 2276-01 #### [facility] CLIA [id number] [address] [place] [address] [place] Hematocrit (Bld) [Volume fraction] 53.9 % High 39.0-51.0 [facility] Comment on above: Order Comment: Speci men Type: BLOOD SPECIMEN Ordering Facility: [facility] Address: [address] [place] [address] Performed By: #### 5 0190-8, 2275-4 #### [facility] CLIA [id number] [address] [place] [address] [place] Hemoglobin (Bld) [Mass/Vol] 17.8 g/dL High 13.0-17.0 [facility] Comment on above: Order Comment: Speci men Type: BLOOD SPECIMEN Ordering Facility: [facility] Address: [address] [place] [address] Performed By: #### 5 0190-8, 2275-4 #### [facility] CLIA [id number] [address] [place] [address] [place] Immature granulocytes (Bld) [#/Vol] 0.07 10*3/uL Normal <0.10 [facility] Comment on above: Order Comment: Speci men Type: BLOOD SPECIMEN Ordering Facility: [facility] Address: [address] [place] [address] Performed By: #### 5 0190-8, 2276-01 #### [facility] CLIA [id number] [address] [place] [address] [place] Immature granulocytes/100 WBC (Bld) 0.5 % Normal [facility] Comment on above: Order Comment: Speci men Type: BLOOD SPECIMEN Ordering Facility: [facility] Address: [address] [place] [address] Performed By: #### 5 0190-8, 2276-01 #### [facility] CLIA [id number] [address] [place] [address] [place] Lymphocytes (Bld) [#/Vol] 0.98 10*3/uL Low 1.00-4.00 [facility] Comment on above: Order Comment: Speci men Type: BLOOD SPECIMEN Ordering Facility: [facility] Address: [address] [place] [address] Performed By: #### 5 0190-8, 2276-01 #### [facility] CLIA [id number] [address] [place] [address] [place] Lymphocytes/100 WBC (Bld) 6.7 % Normal [facility] Comment on above: Order Comment: Speci men Type: BLOOD SPECIMEN Ordering Facility: [facility] Address: [address] [place] [address] Performed By: #### 5 0190-8, 2276-01 #### [facility] CLIA [id number] [address] [place] [address] [place] MCH (RBC) [Entitic mass] 29.2 pg Normal 26.0-34.0 [facility] Comment on above: Order Comment: Speci men Type: BLOOD SPECIMEN Ordering Facility: [facility] Address: [address] [place] [address] Performed By: #### 5 0190-8, 2276-01 #### [facility] CLIA [id number] [address] [place] [address] [place] MCHC (RBC) [Mass/Vol] 33.0 g/dL Normal 30.5-36.0 [facility] Comment on above: Order Comment: Speci men Type: BLOOD SPECIMEN Ordering Facility: [facility] Address: [address] [place] [address] Performed By: #### 5 0190-8, 2276-01 #### [facility] CLIA [id number] [address] [place] [address] [place] MCV (RBC) [Entitic vol] 88.5 fL Normal 80.0-100.0 [facility] Comment on above: Order Comment: Speci men Type: BLOOD SPECIMEN Ordering Facility: [facility] Address: [address] [place] [address] Performed By: #### 5 0190-8, 2276-01 #### [facility] CLIA [id number] [address] [place] [address] [place] Monocytes (Bld) [#/Vol] 0.89 10*3/uL High <0.87 [facility] Comment on above: Order Comment: Speci men Type: BLOOD SPECIMEN Ordering Facility: [facility] Address: [address] [place] [address] Performed By: #### 5 0190-8, 2275-4 #### [facility] CLIA [id number] [address] [place] [address] [place] Monocytes/100 WBC (Bld) 6.1 % Normal [facility] Comment on above: Order Comment: Speci men Type: BLOOD SPECIMEN Ordering Facility: [facility] Address: [address] [place] [address] Performed By: #### 5 0190-8, 2275-4 #### [facility] CLIA [id number] [address] [place] [address] [place] Neutrophils (Bld) [#/Vol] 12.72 10*3/uL High 1.45-7.50 [facility] Comment on above: Order Comment: Speci men Type: BLOOD SPECIMEN Ordering Facility: [facility] Address: [address] [place] [address] Performed By: #### 5 0190-8, 2275-4 #### [facility] CLIA [id number] [address] [place] [address] [place] Neutrophils/100 WBC (Bld) 86.5 % Normal [facility] Comment on above: Order Comment: Speci men Type: BLOOD SPECIMEN Ordering Facility: [facility] Address: [address] [place] [address] Performed By: #### 5 0190-8, 2275- #### [facility] CLIA [id number] [address] [place] [address] [place] Nucleated RBC (Bld) [#/Vol] 10*3/uL Normal <0.01 [facility] Comment on above: Order Comment: Speci men Type: BLOOD SPECIMEN Ordering Facility: [facility] Address: [address] [place] [address] Performed By: #### 5 0190-8, 6-4 #### [facility] CLIA [id number] [address] [place] [address] [place] Nucleated RBC/100 WBC (Bld) [Ratio] 0.0 /100 WBC Normal [facility] Comment on above: Order Comment: Speci men Type: BLOOD SPECIMEN Ordering Facility: [facility] Address: [address] [place] [address] Performed By: #### 5 0190-8, 2275-4 #### [facility] CLIA [id number] [address] [place] [address] [place] Platelet mean volume (Bld) [Entitic vol] 12.4 fL Normal 9.0-12.7 [facility] Comment on above: Order Comment: Speci men Type: BLOOD SPECIMEN Ordering Facility: [facility] Address: [address] [place] [address] Performed By: #### 5 0190-8, 2275-4 #### [facility] CLIA [id number] [address] [place] [address] [place] Platelets (Bld) [#/Vol] 173 10*3/uL Normal 150-400 [facility] Comment on above: Order Comment: Speci men Type: BLOOD SPECIMEN Ordering Facility: [facility] Address: [address] [place] [address] Performed By: #### 5 0190-8, 2275-4 #### [facility] CLIA [id number] [address] [place] [address] [place] RBC (Bld) [#/Vol] 6.09 10*6/uL High 4.20-6.00 [facility] Comment on above: Order Comment: Speci men Type: BLOOD SPECIMEN Ordering Facility: [facility] Address: [address] [place] [address] Performed By: #### 5 0190-8, 2276-4 #### [facility] CLIA [id number] [address] [place], [place] [address] [address] [place] WBC (Bld) [#/Vol] 14.69 10*3/uL High 3.70-11.00 [facility] Comment on above: Order Comment: Speci men Type: BLOOD SPECIMEN Ordering Facility: [facility] Address: [address] [place] [address] Performed By: #### 5 0190-8, 2276-4 #### [facility] CLIA [id number] [address] [place] [address] [place] Comprehensive metabolic 2000 panelon 10-21-2024 Albumin [Mass/Vol] 4.1 g/dL Normal 3.9-4.9 [facility] Comment on above: Order Comment: Speci men Type: BLOOD SPECIMEN Ordering Facility: [facility] Address: [address] [place] [address] Performed By: #### 2 4323-8 #### [facility] CLIA [id number] [address] [place] [address] [place] ALP [Catalytic activity/Vol] 75 U/L Normal 38-113 [facility] Comment on above: Order Comment: Speci men Type: BLOOD SPECIMEN Ordering Facility: [facility] Address: [address] [place] [address] Performed By: #### 2 4323-8 #### [facility] CLIA [id number] [address] [place] [address] [place] ALT [Catalytic activity/Vol] 21 U/L Normal 10-54 [facility] Comment on above: Order Comment: Speci men Type: BLOOD SPECIMEN Ordering Facility: [facility] Address: [address] [place] [address] Performed By: #### 2 4323-8 #### [facility] CLIA [id number] [address] [place] [address] [place] Anion gap [Moles/Vol] 7 mmol/L Low 8-15 [facility] Comment on above: Order Comment: Speci men Type: BLOOD SPECIMEN Ordering Facility: [facility] Address: [address] [place] [address] Performed By: #### 2 4323-8 #### [facility] CLIA [id number] [address] [place] [address] [place] AST [Catalytic activity/Vol] 17 U/L Normal 14-40 [facility] Comment on above: Order Comment: Speci men Type: BLOOD SPECIMEN Ordering Facility: [facility] Address: [address] [place] [address] Performed By: #### 2 4323-8 #### [facility] CLIA [id number] [address] [place] [address] [place] Bilirubin [Mass/Vol] 0.9 mg/dL Normal 0.2-1.3 [facility] Comment on above: Order Comment: Speci men Type: BLOOD SPECIMEN Ordering Facility: [facility] Address: [address] [place] [address] Performed By: #### 2 4323-8 #### [facility] CLIA [id number] [address] [place] [address] [place] Calcium [Mass/Vol] 9.3 mg/dL Normal 8.5-10.2 [facility] Comment on above: Order Comment: Speci men Type: BLOOD SPECIMEN Ordering Facility: [facility] Address: [address] [place] [address] Performed By: #### 2 4323-8 #### [facility] CLIA [id number] [address] [place] [address] [place] Chloride [Moles/Vol] 104 mmol/L Normal 98-107 [facility] Comment on above: Order Comment: Speci men Type: BLOOD SPECIMEN Ordering Facility: [facility] Address: [address] [place] [address] Performed By: #### 2 4323-8 #### [facility] CLIA [id number] [address] [place] [address] [place] CO2 [Moles/Vol] 28 mmol/L Normal 22-30 [facility] Comment on above: Order Comment: Speci men Type: BLOOD SPECIMEN Ordering Facility: [facility] Address: [address] [place] [address] Performed By: #### 2 4323-8 #### [facility] CLIA [id number] [address] [place] [address] [place] Creatinine [Mass/Vol] 0.99 mg/dL Normal 0.73-1.22 [facility] Comment on above: Order Comment: Speci men Type: BLOOD SPECIMEN Ordering Facility: [facility] Address: [address] [place] [address] Performed By: #### 2 4323-8 #### [facility] CLIA [id number] [address] [place] [address] [place] Creatinine and Glomerular filtration rate.predicted panel (S/P/Bld) 85 mL/min/1.73m??? Normal >=60 [facility] Comment on above: Order Comment: Speci men Type: BLOOD SPECIMEN Ordering Facility: [facility] Address: [address] [place] [address] Result Comment: Nyla mated Glomerular Filtration Rate [...] actual GFR. Performed By: #### 2 4323-8 #### [facility] CLIA [id number] [address] [place] [address] [place] Glucose [Mass/Vol] 166 mg/dL High 74-99 [facility] Comment on above: Order Comment: Speci men Type: BLOOD SPECIMEN Ordering Facility: [facility] Address: [address] [place] [address] Result Comment: The [place] [employer] (ADA) provides guidance for cutoff [...] Standards of Medical Care in Diabetes 2016, [place] [employer]. Diabetes Care. 2016.39(Suppl 1). Performed By: #### 2 4323-8 #### [facility] CLIA [id number] [address] [place] [address] [place] Potassium [Moles/Vol] 4.3 mmol/L Normal 3.7-5.1 [facility] Comment on above: Order Comment: Isabeli men Type: BLOOD SPECIMEN Ordering Facility: [facility] Address: [address] [place] [address] Performed By: #### 2 4323-8 #### [facility] CLIA [id number] [address] [place] [address] [place] Protein [Mass/Vol] 6.8 g/dL Normal 6.3-8.0 [facility] Comment on above: Order Comment: Speci men Type: BLOOD SPECIMEN Ordering Facility: [facility] Address: [address] [place] [address] Performed By: #### 2 4323-8 #### [facility] CLIA [id number] [address] [place], [place] [address] [place] Sodium [Moles/Vol] 139 mmol/L Normal 136-144 [facility] Comment on above: Order Comment: Speci men Type: BLOOD SPECIMEN Ordering Facility: [facility] Address: [address] [place], [place] [address], [place] [address] Performed By: #### 2 4323-8 #### [facility] CLIA [id number] [address] [place] [address] [place] Urea nitrogen [Mass/Vol] 13 mg/dL Normal 9-24 [facility] Comment on above: Order Comment: Speci men Type: BLOOD SPECIMEN Ordering Facility: [facility] Address: [address] [place] [address] Performed By: #### 2 4323-8 #### [facility] CLIA [id number] [address] [place] [address] [place] Eosinophils/100 WBC Auto (Bl d)on 10-21-2024 Eosinophils/100 WBC (Bld) Automated eosinophil % [facility] Erythrocyte distribution wid th Auto (RBC) [Ratio]on 10-21-2024 Erythrocyte distribution width (RBC) [Ratio] Erythrocyte distribution width [Ratio] by Automated count 11.5-15.0 [facility] Hematocrit Auto (Bld) [Volum e fraction]on 10-21-2024 Hematocrit (Bld) [Volume fraction] Hematocrit [Volume Fraction] of Blood by Automated count High 39.0-51.0 [facility] Hemoglobin [Mass/volume] in Bloodon 10-21-2024 Hemoglobin (Bld) [Mass/Vol] Hemoglobin [Mass/volume] in Blood High 13.0-17.0 [facility] Laboratory - Chemistry and C hemistry - challengeon 10-21-2024 Albumin [Mass/Vol] 4.1 g/dL 3.9-4.9 [facility] ALP [Catalytic activity/Vol] 75 U/L 38-113 [facility] ALT [Catalytic activity/Vol] 21 U/L 10-54 [facility] AST [Catalytic activity/Vol] 17 U/L 14-40 [facility] Bilirubin [Mass/Vol] 0.9 mg/dL 0.2-1.3 [facility] Calcium [Mass/Vol] 9.3 mg/dL 8.5-10.2 [facility] Chloride [Moles/Vol] 104 mmol/L 98-107 [facility] CO2 [Moles/Vol] 28 mmol/L 22-30 [facility] [facility] Creatinine [Mass/Vol] 0.99 mg/dL 0.73-1.22 [facility] Glucose [Mass/Vol] 166 mg/dL High 74-99 [facility] Comment on above: The [place] Diabete s Association (ADA) provides guidance for cutoff values for fasting glucose and random glucose. The ADA defines fasting as no caloric intake for at least 8 hours. Fasting plasma glucose results between 100 to 125 mg/dL indicate increased risk for diabetes (prediabetes).Fasting plasma glucose results greater than or equal to 126 mg/dL meet the criteria for diagnosis of diabetes. In the absence of unequivocal hyperglycemia, results should be confirmed by repeat testing. In a patient with classic symptoms of hyperglycemia or hyperglycemic crisis, random plasma glucose results greater than or equal to 200 mg/dL meet the criteria for diagnosis of diabetes.Reference: Standards of Medical Care in Diabetes 2016, [place] Diabetes Association. Diabetes Care. 2016.39(Suppl 1). Potassium [Moles/Vol] 4.3 mmol/L 3.7-5.1 [facility] Sodium [Moles/Vol] 139 mmol/L 136-144 [facility] Urea nitrogen [Mass/Vol] 13 mg/dL 9-24 [facility] Laboratory - Hematology and Cell countson 10-21-2024 Eosinophils (Bld) [#/Vol] 10*3/uL <0.46 [facility] Immature granulocytes (Bld) [#/Vol] 0.07 10*3/uL <0.10 [facility] Immature granulocytes/100 WBC (Bld) 0.5 % [facility] Leukocytes [#/volume] correc loreta for nucleated erythrocytes in Blood by Automated counon 10-21-2024 WBC corrected for nucl RBC Auto (Bld) [#/Vol] Leukocytes [#/volume] corrected for nucleated erythrocytes in Blood by Automated coun High 3.70-11.00 [facility] Lymphocytes Auto (Bld) [#/Vo l]on 10-21-2024 Lymphocytes (Bld) [#/Vol] Lymphocytes [#/volume] in Blood by Automated count Low 1.00-4.00 [facility] Lymphocytes/100 WBC Auto (Bl d)on 10-21-2024 Lymphocytes/100 WBC (Bld) Lymphocytes/100 leukocytes in Blood by Automated count [facility] MCH Auto (RBC) [Entitic mass ]on 10-21-2024 MCH (RBC) [Entitic mass] MCH [Entitic mass] by Automated count 26.0-34.0 [facility] MCHC Auto (RBC) [Mass/Vol]on 10-21-2024 MCHC (RBC) [Mass/Vol] MCHC [Mass/volume] by Automated count 30.5-36.0 [facility] MCV Auto (RBC) [Entitic vol] on 10-21-2024 MCV (RBC) [Entitic vol] MCV [Entitic volume] by Automated count 80.0-100.0 [facility] Monocytes Auto (Bld) [#/Vol] on 10-21-2024 Monocytes (Bld) [#/Vol] Automated blood monocyte count High <0.87 [facility] Monocytes/100 WBC Auto (Bld) on 10-21-2024 Monocytes/100 WBC (Bld) Automated monocyte % [facility] Neutrophils Auto (Bld) [#/Vo l]on 10-21-2024 Neutrophils (Bld) [#/Vol] Neutrophils [#/volume] in Blood by Automated count High 1.45-7.50 [facility] Neutrophils/100 WBC Auto (Bl d)on 10-21-2024 Neutrophils/100 WBC (Bld) Automated neutrophil % [facility] No Panel Informationon 10-21 Estimated GFR (CKD-EPI) 85 mL/min/1.73m??? >=60 [facility] Comment on above: Estimated Glomerular Filtration Rate (eGFR) is calculated using the 2020 CKD-EPI creatinine equation. This equation utilizes serum creatinine, sex, and age as parameters. The creatinine assay has traceable calibration to isotope dilution-mass spectrometry. Refer to KDIGO guidelines for clinical interpretation. In patients with unstable renal function, e.g. those with acute kidney injury, the eGFR may not accurately reflect actual GFR. Nucleated RBC Auto (Bld) [#/ Vol]on 10-21-2024 Nucleated RBC (Bld) [#/Vol] Nucleated erythrocytes [#/volume] in Blood by Automated count <0.01 [facility] Nucleated erythrocytes [Pres ence] in Blood by Automated counton 10-21-2024 Nucleated RBC Auto Ql (Bld) Nucleated erythrocytes [Presence] in Blood by Automated count [facility] Platelet mean volume Auto (B ld) [Entitic vol]on 10-21-2024 Platelet mean volume (Bld) [Entitic vol] Platelet mean volume [Entitic volume] in Blood by Automated count 9.0-12.7 [facility] Platelets Auto (Bld) [#/Vol] on 10-21-2024 Platelets (Bld) [#/Vol] Platelets [#/volume] in Blood by Automated count 150-400 [facility] Protein [Mass/volume] in Ser um or Plasmaon 10-21-2024 Protein [Mass/Vol] Protein [Mass/volume ] in Serum or Plasma 6.3-8.0 [facility] RBC Auto (Bld) [#/Vol]on RBC (Bld) [#/Vol] Erythrocytes [#/volume] in Blood by Automated count High 4.20-6.00 [facility] Serum or plasma anion gap de terminationon 10-21-2024 Anion gap [Moles/Vol] Serum or plasma an ion gap determination Low 8-15 [facility] ED Clinical Summaryon 2024 ED Clinical Summary ED Clinical Summary [place] [id number] ED Clinical Summary Person Information Name: EBEN ARENAS [facility] Age: 63 Years : 1960 Sex: Male Language: Romansh PCP: JULIA MCDANIELS MD Marital Status: Visit Id: Visit Reason: Shoulder pain-swelling; LEFT SHOULDER PAIN Speciality: Acuity: 4 Enc Type: Emergency Med Service: Emergency Arrival: 10/19/2024 14:12:50 Discharge: 10/19/2024 16:17:28 LOS: 000 02:05 Checkin: 10/19/2024 14:12:50 Checkout: 10/19/2024 16:17:28 Dispo Type: Home (Routine DC) EVENTS: Event Name Event Status Request Date/Time Start Date/Time Complete Date/Time Arrive Complete 10/19/2024 14:12:50 10/19/2024 14:12:50 10/19/2024 14:12:50 Document Home Meds Request 10/19/2024 14:12:50 Triage Complete 10/19/2024 14:12:50 10/19/2024 14:21:39 10/19/2024 14:21:39 Bed Assign Complete 10/19/2024 14:21:45 10/19/2024 14:21:45 10/19/2024 14:21:45 Dr Exam Complete 10/19/2024 14:21:45 10/19/2024 14:24:36 10/19/2024 14:24:36 RN Exam Complete 10/19/2024 14:21:45 10/19/2024 14:26:56 10/19/2024 14:26:56 Registration Complete 10/19/2024 14:24:36 10/19/2024 14:50:37 10/19/2024 14:50:37 Dr Exam Complete 10/19/2024 14:29:21 10/19/2024 14:29:21 10/19/2024 14:29:21 Reg Complete Request 10/19/2024 14:50:37 Reg Bed Request Complete 10/19/2024 14:50:37 10/19/2024 14:50:37 10/19/2024 14:50:37 X-Ray Complete 10/19/2024 15:02:45 10/19/2024 15:23:29 10/19/2024 15:37:20 Wet Read Request 10/19/2024 15:37:20 Meds Admin Complete 10/19/2024 15:58:45 10/19/2024 16:03:50 Patient Care Request 10/19/2024 15:59:00 Discharge Complete 10/19/2024 16:00:24 10/19/2024 16:17:33 10/19/2024 16:17:33 Transfer Complete 10/19/2024 16:17:33 10/19/2024 16:17:33 10/19/2024 16:17:33 ADDRESS: [address] [facility] [phone] PHYS DOC NOTES: MEDICAL INFORMATION: Prescriptions Given: New Medications [id number], [address] [place], [place] [id number], [phone] acetaminophen-oxycodo ne (Percocet 5 mg-325 mg oral tablet) 1 Tablets By Mouth every 6 hours for 3 Days. Refills: 0. methylPREDNISolone (Medrol 4 mg Tab) 1 Packets By Mouth As Directed for 6 Days. as directed on package labeling. Refills: 0. tizanidine (tiZANidine 2 mg Tab) 1 Tablets By Mouth every 8 hours for 7 Days. Refills: 0. Medications to Continue with No Changes Other Medications apixaban (Eliquis 5 mg oral tablet) 1 Tablets By Mouth 2 times a day. baclofen (baclofen 10 mg Tab) 1 Tablets By Mouth every day as needed Pain. caffeine (Diurex Water Pills) as needed swelling. flecainide (flecainide 50 mg Tab) magnesium oxide (magnesium oxide 400 mg Tab) Misc Prescription (METOPROLOL SUCCINATE ER 25 MG TB24) 0 every day. triamcinolone nasal (Nasacort Allergy 24HR nasal spray) 1 Sprays Nasal Inhalation every day as needed Allergy symptoms. triamcinolone topical (triamcinolone Top 0.1% Crm 15 gram) PATIENT EDUCATION INFORMATION: Instructions: Rotator Cuff Tear Follow up: With: Address: When: Anupam Quesada [address] [place] [address] Business (1) In 3 days 10/22/2024 With: Address: When: JULIA MCDANIELS [address] [place] [address] Business (1) In 3 days DIAGNOSIS: Left shoulder pain; Rotator cuff tear, left Normal [facility] ED Note-Physicianon 10-19-19 ED Note-Physician ED Note-Physician Basic Information Time Seen: Josh Sousa PA-C 10/19/2024 14:24 Chief Complaint Pt presents to ED with complaints of left shoulder pain after working out yesterday. limited ROM History of Present Illness Patient is a 63-year-old male that presents today for evaluation of his left shoulder pain. 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 Patient states that he was in the gym yesterday working out when he was trying to stretch. He states that he felt a pop in his left shoulder when trying to stretch and has had pain and difficulty using his left shoulder ever since. Denies any pain going down the arm. Denies any neck pain. Prefers to hold his arm at his side secondary to the pain. Is unable to lift his arm past 30 to 40 degrees without assistance. Review of Systems No other aggravating or relieving factors no other associated symptoms no other prior treatments or complaints. Family: Reviewed and noncontributory Social: lives at home Review of systems negative unless otherwise specified in the HPI. Physical Exam Vitals & Measurements T: 36.6 ???C(Oral) HR: 68(Peripheral) RR: 18 BP: 167/86 SpO2: 96% HT: 177 cm WT: 126.2 kg BMI: 40.28 Vital Signs reviewed and noted. General: Alert, no acute distress, patient resting comfortably Skin: warm, intact, no pallor noted Head: Normocephalic, atraumatic Eye: Normal conjunctiva Cardiac: Normal peripheral perfusion Respiratory: No acute distress Musculoskeletal: No deformity, full ROM. Diffuse tenderness to palpation about the left shoulder. There is no focal bony tenderness. There is pain with range of motion about the shoulder and pain does limit range of motion. There is no tenderness to the remainder of the humerus or elbow or the remainder of the extremity. The patient does seem to guard against range of motion about that shoulder specifically hyperextension and abduction. Neurovascular intact distally Neurological: alert and oriented, normal sensory and motor observed. Psychiatric: Cooperative Medical Decision Making Patient is a 63-year-old male who presents today for evaluation of his left shoulder pain. 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 Was in the gym yesterday trying to stretch and he felt a pop in his left shoulder and has had pain and difficulty using ever since. Denies any other systemic signs or symptoms. On exam the patient has diffuse tenderness to palpation about the left shoulder. No focal bony tenderness. There is pain with range of motion and it is limited secondary to his pain and inability to use the shoulder. No tenderness to remaining upper extremity. He does guard against range of motion. Neurovascular intact distally. 4 view left shoulder x-rays interpreted by myself demonstrate no evidence of acute traumatic abnormality but evidence of severe degenerative changes in the glenohumeral joint. Patient was given a dose of Toradol and morphine IM here in the ED and will be discharged home with a Medrol Dosepak, tizanidine, Percocet as needed for breakthrough pain. He already has an established follow-up appointment Dr. Quesada next week and will keep this appointment with him. I did provide him with a sling given the pain is worse when his arm is hanging there. Return to ED precautions were reviewed with the patient at length. Assessment/Plan Left shoulder pain (M25.512: Pain in left shoulder) Rotator cuff tear, left (M75.102: Unspecified rotator cuff tear or rupture of left shoulder, not specified as traumatic) Orders: acetaminophen-oxycodo ne, 1 tab(s), Oral, q6hr for 3 day(s), 12 tab(s), Refill(s) 0, [id number], 177, cm, 10/19/24 14:21:00 EST, Height/Length Dosing, 126.2, kg, 10/19/24 14:21:00 EST, Weight Dosing ketorolac, 30 mg = 1 mL, Injection, IntraMuscular, Once, Stop date 10/19/24 15:58:00 EST, STAT, Start date 10/19/24 15:58:00 EST, 10/19/24 15:58:00 EST methylPREDNISolone, = 1 packet(s), Oral, As Directed, as directed on package labeling, X 6 day(s), # 21 tab(s), Refills(s) 0, [facility]: [id number], 177, cm, 10/19/24 14:21:00 EST, Height/Length Dosing, 126.2, kg, 10/19/24 14:21:00 EST, Weight Dosing morphine, 4 mg = 1 mL, Injection, IntraMuscular, Once, Stop date 10/19/24 15:57:00 EST, STAT, Start date 10/19/24 15:57:00 EST, 10/19/24 15:57:00 EST tizanidine, 2 mg = 1 tab(s), Oral, q8hr, X 7 day(s), # 21 tab(s), Refills(s) 0, Pharmacy: [id number], 177, cm, 10/19/24 14:21:00 EST, Height/Length Dosing, 126.2, kg, 10/19/24 14:21:00 EST, Weight Dosing Sling Apply XR Shoulder Complete Left Medications Administered Given ketorolac 30 mg/mL Inj 1 mL, 30 mg, IntraMuscular morphine 4 mg/mL Inj, 4 mg, IntraMuscular Disposition Plan Patient Discharge Condition Stable Discharge Disposition Home Discharge Prescription List Prescriptions Medrol 4 mg Tab, 1 packet(s), Oral, As Directed Percocet 5 mg-325 mg (more content not included)... Normal [facility] Comment on above: Result Comment: Elec tronically Signed By: Josh Sousa PA-C\.br\Date and Time Signed: 10/19/24 18:04 EST\.br\Electronically Co-Signed By: Sarabjit Moore DO\.br\Date and Time Co-Signed: 10/19/24 19:51 EST ED Patient Summaryon 025 ED Patient Summary ED Patient Summary [address] [address] Patient Discharge Instructions Person Information Name: EBEN ARENAS Age: 63 Years Arrival Date: 10/19/2024 14:12:50 Discharge Diagnosis: Left shoulder pain; Rotator cuff tear, left Primary Care Physician: JULIA MCDANIELS MD Provider Information Primary Provider: Sarabjit Moore DO Advanced Splicing Technician:Josh Sousa PA-C The exam and treatment you received in the Emergency Department were for an urgent problem and are not intended as complete care. It is important that you follow up with a doctor, nurse practitioner, or physician???s web assistant for ongoing care. If your symptoms become worse or you do not improve as expected and you are unable to reach your usual health care provider, you should return to the Emergency Department. We are available 24 hours a day. EBEN ARENAS has been given the following list of patient education materials, prescriptions and follow-up instructions: Follow-up Instructions: With: Address: When: Anupam Quesada [address] [place] [address] [employer] (1) In 3 days 10/22/2024 With: Address: When: JULIA MCDANIELS [address] [place], [place] [id number] [employer] (1) In 3 days In the event that this physician does not participate in your insurance network, please consult with your insurance company to find a nearby participating provider. Patient Education Materials: Rotator Cuff Tear A MESSAGE TO ALL PATIENTS REGARDING OPIOIDS PRESCRIPTION OPIOIDS: WHAT YOU NEED TO KNOW Prescription opioids can be used to help relieve npncxlkg-ga-rjpmso pain and are often prescribed following a surgery or injury, or for certain health conditions. These medications can be an important part of the treatment but also come with serious risks. It is important to work with your healthcare provider to make sure you are getting the safest, most effective care. WHAT ARE THE RISKS AND SIDE EFFECTS OF OPIOID USE? Prescription opioids carry serious risks of addiction and overdose, especially with prolonged use. An opioid overdose, often marked by slowed breathing, can cause sudden . The use of prescription opioids can have a number of side effects as well, even when taken as directed: ??? Tolerance???meaning you might need to take more of the medication for the same pain relief ??? Physical dependence???meaning you have symptoms of withdrawal when a medication is stopped ??? Increased sensitivity to pain ??? Constipation ??? Nausea, vomiting, and dry mouth ??? Sleepiness and dizziness ??? Confusion ??? Depression ??? Low levels of testosterone that can result in lower sex drive, energy, and strength ??? Itching and sweating RISKS ARE GREATER WITH: ??? History of drug misuse, substance use disorder, or overdose ??? Mental health conditions (such as depression or anxiety) ??? Sleep apnea ??? Older age (65 years and older) ??? Avoid alcohol while taking prescription opioids. Also, unless specifically advised by your health care provider, medications to avoid include: ??? Benzodiazepines (such as Xanax or Valium) ??? Muscle relaxants (such as Soma or Flexeril) ??? Hypnotics (such as Ambien or Lunesta) ??? Other prescription opioids KNOW YOUR OPTIONS Talk to your health care provider about ways to manage your pain that don???t involve prescription opioids. Some of these options may actually work better and have fewer risks and side effects. Options may include: ??? Pain relievers such as acetaminophen, ibuprofen, and naproxen ??? Some medication that are also used for depression or seizures ??? Physical therapy and exercise ??? Cognitive behavioral therapy, a psychological, goal-directed approach, in which patients learn how to modify physical, behavioral, and emotional triggers of pain and stress. IF YOU ARE PRESCRIBED OPIOIDS FOR PAIN: ??? Never take opioids in greater amounts or more often than prescribed. ??? Follow up with your primary health care provider. o Work together to create a plan on how to manage your pain. o Talk about ways to help manage your pain that don???t involve prescription opioids. o Talk about any and all concerns and side effects. ??? Help prevent misuse and abuse o Never sell or share prescription opioids. o Never use another person???s prescription opioids. ??? Store prescription opioids in a secure place and out of reach of others (this may include visitors, children, friends, and family). ??? Safely dispose of unused prescription opioids: Find your community drug take-back program or your pharmacy mail-back program, or flush them down the toilet, following guidance from the Food and Drug Administration (www.fda.gov/Drugs/Re sourcesForYou). ??? Visit www.cdc.gov/drugoverd ose to learn about the risk (more content not included)... Normal [facility] XR Shoulder Complete Lefton 10-19-2024 XR Shoulder Complete Left Exam Date/Time: 10/19/2024 15:37 EST Reason for Exam: Pain, Non Traumatic Report IMPRESSION: No distinct acute osseous findings. Degenerative changes and other chronic findings as discussed. EXAMINATION/TECHNIQUE : XR Shoulder Complete Left HISTORY: Left shoulder pain. COMPARISON: None RESULT: Some limitations from positioning and underlying decreased bone mineral density. No distinct acute displaced fracture. No dislocation. At least moderate degenerative changes of the glenohumeral joint with osteophytes. Moderate to severe degenerative changes of the acromioclavicular joint with undersurface osteophytes. Borderline narrowing of the acromiohumeral interval, associated with chronic rotator cuff arthropathy/tearing. Densities adjacent to the humeral head, possible calcific tendinosis. Probable joint bodies. Visualized lung grossly clear. No other significant abnormality. Ordering Provider: Josh Sousa FINAL REPORT Dictated: 10/19/2024 3:48 pm Zain Carter MD. Signed (Electronic Signature): 10/19/2024 3:48 pm Signed by: Zain Carter MD Transcribed by: KURT Technologist: ALLISON Technical Comments Radiation Dose: Ka,r in mGy = na DAP = na Normal [facility] CNPNon 10-17-2024 CNPN Telephone (HEMAVN) EBEN ARENAS ([id number]) 1960 M Date Time Provider Department 10/17/24 MELISSA LOREDO HEMAVN During your visit today, we recorded the following information about you: Melissa Loredo RN 10/17/2024 2:25 PM Signed Pt calling to report that he has high hbg and needs phlebotomy scheduled. NEEDS: OV Dr Mcpherson or KENNA and phlebotomy next available [phone] (home) Please call with appt Luh Hernandes 10/17/2024 2:38 PM Signed Left patient a VM to schedule OV and phlebotomy next available. Nkechi Cool 10/17/2024 4:17 PM Signed Called patient and scheduled OV and phlebotomy next week Allergies As of Date: 10/17/2024 Noted Allergy Reaction LORAZEPAM 04/07/2013 14 - Other: See Comments Comments: [place] like he will pass out EZETIMIBE-SIMVASTATIN 2023 16 - Unknown LAMOTRIGINE 2023 1 - Mental Status Change Date Reviewed: 07/07/2024 Reviewed by: Nkechi Juarez, RN - Fully Assessed Reason for Visit: Appointment [[id number]] Prescriptions as of 10/17/2024 - triamcinolone acetonide (NASACORT AQ) 55 mcg nasal inhaler Use in the nose. - metoprolol succinate ER (TOPROL XL) 25 mg 24 hr tablet Take 1 tablet by mouth once daily. - flecainide (TAMBOCOR) 50 mg tablet 1 tablet two times a day. - magnesium oxide (MAG-OX) 400 mg (241.3 mg magnesium) tablet Take 1 tablet by mouth once daily. - apixaban (ELIQUIS) 5 mg tab(s) Take 5 mg by mouth. - cefdinir (OMNICEF) 300 mg capsule Take 1 capsule by mouth every 12 hours. - baclofen (LIORESAL) 10 mg tablet Take 10 mg by mouth as needed. 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] 12/29/2023 03/22/2024 Encounter Status:Closed by MELISSA LOREDO on 10/17/24 Normal [facility] Basic metabolic 2000 panelon 09-13-2024 Anion gap [Moles/Vol] 13 mmol/L Normal 10-20 [facility] Comment on above: Performed By: #### 2 4321-2 #### JOHNNA LEUNG ([id number]) [facility] ([facility]) [address] [place] [address] Calcium [Mass/Vol] 8.7 mg/dL Normal 8.6-10.3 [facility] Comment on above: Performed By: #### 2 4321-2 #### JOHNNA LEUNG ([id number]) [facility] ([facility]) [address] [place] [address] Chloride [Moles/Vol] 104 mmol/L Normal 98-107 [facility] Comment on above: Performed By: #### 2 4321-2 #### JOHNNA LEUNG ([id number]) [facility] ([facility]) [address] [place] [address] CO2 [Moles/Vol] 26 mmol/L Normal 21-32 [facility] Comment on above: Performed By: #### 2 4321-2 #### JOHNNA LEUNG ([id number]) [facility] ([facility]) [address] [place] [address] Creatinine [Mass/Vol] 0.91 mg/dL Normal 0.50-1.30 [facility] Comment on above: Performed By: #### 2 4321-2 #### JOHNNA LEUNG ([id number]) [facility] (EM) [address] [place] [address] GFR/1.73 sq M.predicted MDRD (S/P/Bld) [Vol rate/Area] mL/min/{1.73_m2} Normal >60 [facility] Comment on above: Result Comment: Calc ulations of estimated GFR are performed using the 2020 CKD-EPI Study Refit equation without the race variable for the IDMS-Traceable creatinine methods. https://jasn.asnjournals.org/content/early//ASN.74733 98809 Performed By: #### 2 4321-2 #### JOHNNA LEUNG ([id number]) [facility] ([facility]) [address] [place] [address] Glucose [Mass/Vol] 97 mg/dL Normal 74-99 [facility] Comment on above: Performed By: #### 2 4321-2 #### JOHNNA LEUNG ([id number]) [facility] ([facility]) [address] [place] [address] Potassium [Moles/Vol] 4.2 mmol/L Normal 3.5-5.3 [facility] Comment on above: Performed By: #### 2 4321-2 #### JOHNNA LEUNG ([id number]) [facility] ([facility]) [address] [place] [address] Sodium [Moles/Vol] 139 mmol/L Normal 136-145 [facility] Comment on above: Performed By: #### 2 4321-2 #### JOHNNA LEUNG ([id number]) [facility] ([facility]) [address] [place] [address] Urea nitrogen [Mass/Vol] 8 mg/dL Normal 6-23 [facility] Comment on above: Performed By: #### 2 4321-2 #### JOHNNA LEUNG ([id number]) [facility] ([facility]) [address] [place] [address] 23270 Lipid 1996 panelon 4 Cholesterol [Mass/Vol] 214 mg/dL High 0-199 [place] Comment on above: Result Comment: Age Desirable Borderline High High 0-19 Y 0 - 169 170 - 199 >/= 200 20-24 Y 0 - 189 190 - 224 >/= 225 >24 Y 0 - 199 200 - 239 >/= 240 All ranges are based on fasting samples. Specific therapeutic targets will vary based on patient-specific cardiac risk. Pediatric guidelines reference:Pediatrics 2011, 128(S5).Adult guidelines reference: NCEP ATPIII Guidelines,SILVESTRE 2001, 258:2486-97 Venipuncture immediately after or during the administration of Metamizole may lead to falsely low results. Testing should be performed immediately prior to Metamizole dosing. Performed By: #### 2 4331-1 #### JOHNNA LEUNG ([id number]) [facility] ([facility]) [address] [place] [address] 80270 Cholesterol in HDL [Mass/Vol] 34.6 mg/dL Normal [facility] Comment on above: Result Comment: Age Very Low Low Normal High 0-19 Y < 35 < 40 40-45 ---- 20-24 Y ---- < 40 >45 ---- >24 Y ---- < 40 40-60 >60 Performed By: #### 2 4331-1 #### JOHNNA LEUNG ([id number]) [facility] ([facility]) [address] [place] [address] 51955 Cholesterol in LDL [Mass/Vol] 155 mg/dL High <=99 [facility] Comment on above: Result Comment: Near Borderline AGE Desirable Optimal High High Very High 0-19 Y 0 - 109 --- 110-129 >/= 130 ---- 20-24 Y 0 - 119 --- 120-159 >/= 160 ---- >24 Y 0 - 99 100-129 130-159 160-189 >/=190 Performed By: #### 2 4331-1 #### JOHNNA LEUNG ([id number]) [facility] ([facility] [address] [place] [address] 81801 Cholesterol in VLDL [Mass/Vol] 25 mg/dL Normal 0-40 [facility] Comment on above: Performed By: #### 2 4331-1 #### JOHNNA LEUNG ([id number]) [facility] ([facility]) [address] [place] [address] 38200 CHOLESTEROL/HDL RATIO 6.2 Normal [facility] Comment on above: Result Comment: Ref Values Desirable < 3.4 High Risk > 5.0 Performed By: #### 2 4331-1 #### JOHNNA LEUNG ([id number]) [facility] ([facility]) [address] [place] [address] 36535 NON HDL CHOLESTEROL 179 mg/dL High 0-149 [facility] Comment on above: Result Comment: Age Desirable Borderline High High Very High 0-19 Y 0 - 119 120 - 144 >/= 145 >/= 160 20-24 Y 0 - 149 150 - 189 >/= 190 ---- >24 Y 30 mg/dL above LDL Cholesterol goal Performed By: #### 2 4331-1 #### JOHNNA LEUNG ([id number]) [facility] ([facility]) [address] [place] [address] 02314 Triglyceride [Mass/Vol] 123 mg/dL Normal 0-149 [facility] Comment on above: Result Comment: Age Desirable Borderline High Very High SEX:B mg/dL mg/dL mg/dL mg/dL <=14D 86-277 ---- ---- ---- 15D-365D 55-277 ---- ---- ---- 1Y-9Y 0-74 75-99 >=100 ---- 10Y-19Y 0-89 90-129 >=130 ---- 20Y-24Y 0-114 115-149 >=150 ---- >= 25Y 0-149 150-199 200-499 >=500 Venipuncture immediately after or during the administration of Metamizole may lead to falsely low results. Testing should be performed immediately prior to Metamizole dosing. Performed By: #### 2 4331-1 #### JOHNNA LEUNG ([id number]) [facility] ([facility]) [address] [place] [address] CHEMISTRYOrdered By: SYSTEM SYSTEM on 07-18-2024 Prostate specific Ag [Mass/Vol] 0.6 ng/mL Normal 0.1 - 3.5 ng/mL [facility] Comment on above: Interpretive Data: T he concentration of PSA determined by different manufacturers can vary due to differences in assay methods and reagent specificity. Values obtained from different assay methods cannot be used interchangeably. The methodology used for this result was chemiluminescence using [employer]'s Access Hybritech PSA reagent. PSA Screen, Totalon 07-18-20 Prostate specific Ag [Mass/Vol] 0.6 ng/mL Normal 0.1-3.5 [facility] Comment on above: Order Comment: Copfaith s sent to Dr. Dinero per patient request. 07/18/2024 15:52:50 EDT [id number] Result Comment: The concentration of PSA determined by different manufacturers can vary due to differences in assay methods and reagent specificity. Values obtained from different assay methods cannot be used interchangeably. The methodology used for this result was chemiluminescence using [employer]'s Access Hybritech PSA reagent. Performed By: #### 1 [id number] #### [facility] [address] [place] [address] CHEMISTRYOrdered By: Lab ROP User on 07-11-2024 Glucose [Mass/Vol] 113 mg/dL High 55 - 99 mg/dL FT C POC Subsection POC Device SN [id number] Invalid Interpretation Code [facility] [place] POC Subsection POC User ID [id number] 1 Invalid Interpretation Code [facility] [place] POC Subsection POC Username DAYA RUSSELL Invalid Interpretation Code [facility] [place] POC Subsection Capillary Glucose POCon 06-14 Glucose [Mass/Vol] 113 mg/dL High 55-99 [facility] Comment on above: Performed By: #### 2 [id number] #### [facility] [address] [place] [address] Main OR Intraoperative Recor don 07-11-2024 Main OR Intraoperative Record Main OR Intraoperative Record IntraOp Document Type FTPM Summary Primary Physician: David Cao DO Finalized Date/Time: 07/11/24 09:19:21 Pt. Name: EBEN ARENAS/Sex: 1960 Male Med Rec #: [id number] Physician: David Cao DO Financial #: [id number] Pt. Type: P Room/Bed: / Admit/Disch: 07/11/24 07:40:47 - Institution: Case Times FTPM Entry 1 Patient Times In Room 07/11/24 09:12:00 Out Room 07/11/24 09:19:00 Procedure Times Start 07/11/24 09:15:00 Stop 07/11/24 09:18:00 Anesthesia Times Last Modified By: Darlin Rizo RN 07/11/24 09:18:53 Case Attendance FTPM Entry 1 Entry 2 Entry 3 Case Attendee David Cao DO, RN, Darlin Chakraborty RN, Flaquita Matute Role Performed Surgeon - Primary Supervisor Keymodule Assembly - Primary Scrub - Primary Time In 07/11/24 09:12:00 07/11/24 09:12:00 07/11/24 09:12:00 Time Out 07/11/24 09:19:00 07/11/24 09:19:00 07/11/24 09:19:00 Procedure SACROILIAC JOINT SACROILIAC JOINT SACROILIAC JOINT INJECTION(Bilateral) INJECTION(Bilateral) INJECTION(Bilateral) Comments Last Modified By: Darrius NIEVES, Darlin Rizo RN, Darlin Lopez RN 07/11/24 09:18:54 07/11/24 09:18:54 07/11/24 09:18:54 Entry 4 Case Attendee Candy Crook Role Performed Music Critic Time In 07/11/24 09:12:00 Time Out 07/11/24 09:19:00 Procedure SACROILIAC JOINT INJECTION(Bilateral) Comments Last Modified By: Darlin Rizo RN 07/11/24 09:18:54 Perioperative Protocols FTPM Pre-Care Text: Implements protective measures prior to operative or invasive procedure, confirms identity before the operative or invasive procedure, verifies operative procedure, surgical site, and laterality Entry 1 Procedure(s) SACROILIAC JOINT Patient Identity Birthday, ID Band INJECTION(Bilateral) Verified (select at Check, Patient least 2): Participation Consents / H and P H&P, Surgery/Procedure Operative Site Present Verified Consent Marking Verified Surgical Site Yes Laterality Verified Yes Verified Procedure Verified Yes Correct Patient Yes Position Verified Availability Equipment, Medication, Prep Dry Yes Verified (If X-ray Applicable) PreOp Antibiotic No Time Out Darlin Rizo RN, Roderick RN, Nash Guzman DO, Bradford A., Ott, Amy Time Out Complete 07/11/24 09:14:00 Outcomes Met? Yes Last Modified By: Darlin Rizo RN 07/11/24 09:14:22 Post-Care Text: The patient is free from signs and symptoms of injury caused by extraneous objects Allergy Information FTPM Pre-Care Text: Verifies allergies Entry 1 Allergies Reviewed? Yes Allergies Reviewed Self/Patient With Outcomes Met? Yes Last Modified By: Darlin Rizo RN 07/11/24 09:14:28 Post-Care Text: The patient received appropriate medication(s) safely administered during the perioperative period Surgical Procedures FTPM Entry 1 Procedure Description Procedure SACROILIAC JOINT Modifiers Bilateral INJECTION Surgeon Description SIJI Primary Procedure Yes Primary Surgeon David Cao DO Start 07/11/24 09:15:00 Stop 07/11/24 09:18:00 Anesthesia Type None Surgical Service Pain Management Wound Class 1 - Clean Last Modified By: Darlin Rizo RN 07/11/24 09:18:55 General Case Data FTPM Pre-Care Text: Classifies surgical wound, implements aseptic technique, initiates traffic control Entry 1 Case Information OR Pain Proc Room Case Level Level 2 Wound Class 1 - Clean Specialty Pain Management Preop Diagnosis M46.1 Postop Same As Preop Yes Postop Diagnosis M46.1 Outcomes Met? Yes Last Modified By: Darlin Rizo RN 07/11/24 09:14:55 Post-Care Text: The patient is free from signs and symptoms of infection Skin Assessment (Pre Procedure) FTPM Pre-Care Text: Implements protective measures to prevent skin/ tissue injury due to thermal or mechanical sources Evaluates for signs and symptoms of physical injury to skin and tissue Entry 1 Skin Integrity Intact, [place], Warm, & Skin Abnormality No Dry Outcomes Met? Yes Last Modified By: Darlin Rizo RN 07/11/24 09:19:03 Post-Care Text: The patient is free from signs and symptoms of injury caused by extraneous objects Patient Positioning FTPM Pre-Care Text: Identifies physical alterations that require additional precautions for procedure-specific positioning, verifies presence of prosthetics or corrective devices, positions the patient, evaluates the patient for signs and symptoms of injury as a result of positioning Entry 1 Procedure SACROILIAC JOINT Body Position Prone INJECTION(Bilateral) Feet Uncrossed? Yes Left Arm Position Resting at Side Right Arm Position Resting at Side Left Leg Position Extended Right Leg Position Extended Positioning Device Pillow Under Head Large, Safety Strap, Pillow Large Under Knees Press Points Checked Yes By Darlin Rizo RN (more content not included)... Normal [facility] Main OR Preoperative Recordo n 07-11-2024 Main OR Preoperative Record Main OR Preoperative Record Holding Area Document Type FTPM Summary Primary Physician: David Cao DO Finalized Date/Time: 07/11/24 08:10:36 Pt. Name: EBEN ARENAS/Sex: 1960 Male Med Rec #: [id number] Physician: David Cao DO Financial #: [id number] Pt. Type: P Room/Bed: / Admit/Disch: 07/11/24 07:40:47 - Institution: Case Times Holding FTPM Pre-Care Text: Verifies consent for planned procedure, identifies individual values and wishes concerning care, includes family members in perioperative teaching Secures patient's records' belongings, and valuables, maintains patient's dignity and privacy, and maintains patient confidentiality Entry 1 In Holding 07/11/24 08:08:00 Outcomes Met? Yes Last Modified By: Mragarita Russell RN 07/11/24 08:08:30 Post-Care Text: The patient participates in decisions affecting his or her perioperative plan of care The patient's right to privacy is maintained Surgery Checklist FTPM Entry 1 Does Patient Smoke No Patient states Yes Comment - Adult friend-Leila postop adult Supervision supervision available Case Cancelled in No Holding Area see comments below for reason Last Modified By: Margarita Russell RN 07/11/24 08:10:32 Finalized By: Margarita Russell RN Document Signatures Signed By: Margarita Russell RN 07/11/24 08:10 Normal [facility] CBC W Auto Differential pane l (Bld)on 07-07-2024 Basophils (Bld) [#/Vol] 0.06 10*3/uL [facility] Basophils/100 WBC (Bld) 0.9 % [facility] Differential cell count method Nom (Bld) Auto [facility] Eosinophils (Bld) [#/Vol] 0.42 10*3/uL [facility] Eosinophils/100 WBC (Bld) 6.0 % [facility] Erythrocyte distribution width (RBC) [Ratio] 13.2 % 11.5 - 15.0 % [facility] Hematocrit (Bld) [Volume fraction] 56.1 % High 39.0 - 51.0 % [facility] Hemoglobin (Bld) [Mass/Vol] 18.4 g/dL High 13.0 - 17.0 g/dL [facility] Immature granulocytes (Bld) [#/Vol] [facility] Immature granulocytes/100 WBC (Bld) 0.3 % [facility] Interpretation and review of laboratory results Abnormal [facility] Lymphocytes (Bld) [#/Vol] 1.38 10*3/uL [facility] Lymphocytes/100 WBC (Bld) 19.7 % [facility] MCH (RBC) [Entitic mass] 31.6 pg 26.0 - 34.0 pg [facility] MCHC (RBC) [Mass/Vol] 32.8 g/dL 30.5 - 36.0 g/dL [facility] MCV (RBC) [Entitic vol] 96.4 fL 80.0 - 100.0 fL [facility] Monocytes (Bld) [#/Vol] 0.73 10*3/uL [facility] Monocytes/100 WBC (Bld) 10.4 % [facility] Neutrophils (Bld) [#/Vol] 4.41 10*3/uL [facility] Neutrophils/100 WBC (Bld) 62.7 % [facility] Nucleated RBC (Bld) [#/Vol] [facility] Nucleated RBC/100 WBC (Bld) [Ratio] 0.0 % /100 WBC [facility] Platelet mean volume (Bld) [Entitic vol] 12.5 fL 9.0 - 12.7 fL [facility] Platelets (Bld) [#/Vol] 156 10*3/uL [facility] RBC (Bld) [#/Vol] 5.82 10*6/uL 4.20 - 6.0 0 m/uL [facility] WBC (Bld) [#/Vol] 7.02 10*3/uL [facility] CBC W Auto Differential pane l (Bld)on 06-24-2024 Basophils (Bld) [#/Vol] 0.07 10*3/uL [facility] Basophils/100 WBC (Bld) 1.0 % [facility] Differential cell count method Nom (Bld) Auto [facility] Eosinophils (Bld) [#/Vol] 0.46 10*3/uL [facility] Eosinophils/100 WBC (Bld) 6.5 % [facility] Erythrocyte distribution width (RBC) [Ratio] 12.4 % 11.5 - 15.0 % [facility] Hematocrit (Bld) [Volume fraction] 55.3 % High 39.0 - 51.0 % [facility] Hemoglobin (Bld) [Mass/Vol] 18.5 g/dL High 13.0 - 17.0 g/dL [facility] Immature granulocytes (Bld) [#/Vol] [facility] Immature granulocytes/100 WBC (Bld) 0.1 % [facility] Interpretation and review of laboratory results Abnormal [facility] Lymphocytes (Bld) [#/Vol] 1.68 10*3/uL [facility] Lymphocytes/100 WBC (Bld) 23.6 % [facility] MCH (RBC) [Entitic mass] 32.3 pg 26.0 - 34.0 pg [facility] MCHC (RBC) [Mass/Vol] 33.5 g/dL 30.5 - 36.0 g/dL [facility] MCV (RBC) [Entitic vol] 96.7 fL 80.0 - 100.0 fL [facility] Monocytes (Bld) [#/Vol] 0.89 10*3/uL High NINF [facility] Monocytes/100 WBC (Bld) 12.5 % [facility] Neutrophils (Bld) [#/Vol] 4.01 10*3/uL [facility] Neutrophils/100 WBC (Bld) 56.3 % [facility] Nucleated RBC (Bld) [#/Vol] NINF [facility] Nucleated RBC/100 WBC (Bld) [Ratio] 0.0 % /100 WBC [facility] Platelet mean volume (Bld) [Entitic vol] 13.0 fL High 9.0 - 12.7 fL [facility] Platelets (Bld) [#/Vol] 135 10*3/uL Low [facility] RBC (Bld) [#/Vol] 5.72 10*6/uL 4.20 - 6.0 0 m/uL [facility] WBC (Bld) [#/Vol] 7.12 10*3/uL [facility] Basophils (Bld) [#/Vol] 0.07 10*3/uL Normal <0.11 [facility] Comment on above: Order Comment: Speci men Type: BLOOD SPECIMEN Ordering Facility: [facility] Address: [address] [place] [address] Performed By: #### 5 7021-8 #### [facility] CLIA [id number] [facility] [place] [address] [place] Basophils/100 WBC (Bld) 1.0 % Normal [facility] Comment on above: Order Comment: Speci men Type: BLOOD SPECIMEN Ordering Facility: [facility] Address: [address] [place] [address] Performed By: #### 5 7021-8 #### [facility] CLIA [id number] [address] [facility] [place] [address] [place] Differential cell count method Nom (Bld) Auto Normal [facility] Comment on above: Order Comment: Speci men Type: BLOOD SPECIMEN Ordering Facility: [facility] Address: [address] [place] [address] Performed By: #### 5 7021-8 #### [facility] [place] [id number] [address] [place] [address] [place] Eosinophils (Bld) [#/Vol] 0.46 10*3/uL High <0.46 [facility] Comment on above: Order Comment: Speci men Type: BLOOD SPECIMEN Ordering Facility: [facility] Address: [address] [place] [address] Performed By: #### 5 7021-8 #### [facility] [place] [id number] [place] Eosinophils/100 WBC (Bld) 6.5 % Normal [facility] Comment on above: Order Comment: Speci men Type: BLOOD SPECIMEN Ordering Facility: [facility] Address: [address] [place] [address] Performed By: #### 5 7021-8 #### [facility] [place] [id number] [place] Erythrocyte distribution width (RBC) [Ratio] 12.4 % Normal 11.5-15.0 [facility] Comment on above: Order Comment: Speci men Type: BLOOD SPECIMEN Ordering Facility: [facility] Address: [address] [place] [address] Performed By: #### 5 7021-8 #### [facility] [place] [id number] [address] [place] Hematocrit (Bld) [Volume fraction] 55.3 % High 39.0-51.0 [facility] Comment on above: Order Comment: Speci men Type: BLOOD SPECIMEN Ordering Facility: [facility] Address: [address] [place] [address] Performed By: #### 5 7021-8 #### [facility] CLIA [id number] [address] [place] [address] [place] Hemoglobin (Bld) [Mass/Vol] 18.5 g/dL High 13.0-17.0 [facility] Comment on above: Order Comment: Speci men Type: BLOOD SPECIMEN Ordering Facility: [facility] Address: [address] [place] [address] Performed By: #### 5 7021-8 #### [facility] CLIA [id number] [address] [place] [address] [place] Immature granulocytes (Bld) [#/Vol] 10*3/uL Normal <0.10 [facility] Comment on above: Order Comment: Speci men Type: BLOOD SPECIMEN Ordering Facility: [facility] Address: [address] [place] [address] Performed By: #### 5 7021-8 #### [facility] CLIA [id number] [address] [place] [address] [place] Immature granulocytes/100 WBC (Bld) 0.1 % Normal [facility] Comment on above: Order Comment: Speci men Type: BLOOD SPECIMEN Ordering Facility: [facility] Address: [address] [place] [address] Performed By: #### 5 7021-8 #### [facility] CLIA [id number] [address] [place] [address] [place] Lymphocytes (Bld) [#/Vol] 1.68 10*3/uL Normal 1.00-4.00 [facility] Comment on above: Order Comment: Speci men Type: BLOOD SPECIMEN Ordering Facility: [facility] Address: [address] [place] [address] Performed By: #### 5 7021-8 #### [facility] CLIA [id number] [address] [place] [id number] [place] Lymphocytes/100 WBC (Bld) 23.6 % Normal [facility] Comment on above: Order Comment: Speci men Type: BLOOD SPECIMEN Ordering Facility: [facility] Address: [address] [place] [address] Performed By: #### 5 7021-8 #### [facility] CLIA [id number] [address] [place] [address] [place] MCH (RBC) [Entitic mass] 32.3 pg Normal 26.0-34.0 [facility] Comment on above: Order Comment: Speci men Type: BLOOD SPECIMEN Ordering Facility: [facility] Address: [address] [place] [address] Performed By: #### 5 7021-8 #### [facility] IA [id number] [address] [place] [address] [place] MCHC (RBC) [Mass/Vol] 33.5 g/dL Normal 30.5-36.0 [facility] Comment on above: Order Comment: Speci men Type: BLOOD SPECIMEN Ordering Facility: [facility] Address: [address] [place] [address] Performed By: #### 5 7021-8 #### [facility] IA [id number] [address] [place], [place] [address] [place] MCV (RBC) [Entitic vol] 96.7 fL Normal 80.0-100.0 [facility] Comment on above: Order Comment: Speci men Type: BLOOD SPECIMEN Ordering Facility: [facility] Address: [address] [place] [address] Performed By: #### 5 7021-8 #### [facility] [place] [id number] [place] [address] [place] Monocytes (Bld) [#/Vol] 0.89 10*3/uL High <0.87 [facility] Comment on above: Order Comment: Speci men Type: BLOOD SPECIMEN Ordering Facility: [facility] Address: [address] [place] [address] Performed By: #### 5 7021-8 #### [facility] [place] [id number] [place] [address] [place] Monocytes/100 WBC (Bld) 12.5 % Normal [facility] Comment on above: Order Comment: Speci men Type: BLOOD SPECIMEN Ordering Facility: [facility] Address: [address] [place] [address] Performed By: #### 5 7021-8 #### [facility] CLIA [id number] [address] [place] [address] [place] Neutrophils (Bld) [#/Vol] 4.01 10*3/uL Normal 1.45-7.50 [facility] Comment on above: Order Comment: Speci men Type: BLOOD SPECIMEN Ordering Facility: [facility] Address: [address] [place] [address] Performed By: #### 5 7021-8 #### [facility] CLIA [id number] [address] [place] [address] [place] Neutrophils/100 WBC (Bld) 56.3 % Normal [facility] Comment on above: Order Comment: Speci men Type: BLOOD SPECIMEN Ordering Facility: [facility] Address: [address] [place] [address] Performed By: #### 5 7021-8 #### [facility] [place] [id number] [address] [place] [address] [place] Nucleated RBC (Bld) [#/Vol] 10*3/uL Normal <0.01 [facility] Comment on above: Order Comment: Speci men Type: BLOOD SPECIMEN Ordering Facility: [facility] Address: [address] [place] [address] Performed By: #### 5 7021-8 #### [facility] IA [id number] [address] [place] [address] [place] Nucleated RBC/100 WBC (Bld) [Ratio] 0.0 /100 WBC Normal [facility] Comment on above: Order Comment: Speci men Type: BLOOD SPECIMEN Ordering Facility: [facility] Address: [facility] [place] [address] Performed By: #### 5 7021-8 #### [facility] IA [id number] [address] [place] [address] [place] Platelet mean volume (Bld) [Entitic vol] 13.0 fL High 9.0-12.7 [facility] Comment on above: Order Comment: Speci men Type: BLOOD SPECIMEN Ordering Facility: [facility] Address: [address] [place] [address] Performed By: #### 5 7021-8 #### [facility] CLIA [id number] [address] [place] [address] [facility] [place] Platelets (Bld) [#/Vol] 135 10*3/uL Low 150-400 [facility] Comment on above: Order Comment: Speci men Type: BLOOD SPECIMEN Ordering Facility: [facility] Address: [address] [place] [address] Performed By: #### 5 7021-8 #### [facility] CLIA [id number] [address] [place] [address] [place] RBC (Bld) [#/Vol] 5.72 10*6/uL Normal 4.20-6.00 [facility] Comment on above: Order Comment: Speci men Type: BLOOD SPECIMEN Ordering Facility: [facility] Address: [address] [place] [address] Performed By: #### 5 7021-8 #### [facility] CLIA [id number] [id number] [address] [address] [place] WBC (Bld) [#/Vol] 7.12 10*3/uL Normal 3.70-11.00 [facility] Comment on above: Order Comment: Speci men Type: BLOOD SPECIMEN Ordering Facility: [facility] Address: [address] [place] [address] Performed By: #### 5 7021-8 #### [facility] CLIA [id number] [address] [place] [address] [facility] CN[facility]SPon 06-24-2024 CNOVSP Visit (SP) Office (HEMAVN) EBEN ARENAS ([id number]) 1960 M Date Time Provider Department 06/24/24 1:45 PM ANSELMO MCPHERSON During your visit today, we recorded the following information about you: Temperature Pulse Respiration Blood pressure 97.6 degrees 52/minute 18/minute 124/77 Weight Height 130.2 kg 1.772 m Anselmo Mcpherson MD 06/24/2024 2:23 PM Signed PATIENT NAME: Eben Arenas CLINIC NO.: [id number] ATTENDING PHYSICIAN: Anselmo Mcpherson MD DATE OF SERVICE: June 24, 2024 Some of the elements of this note have been copied from my previous progress note dated 03/22/2024. All the information has been reviewed carefully. Dear Dr. APONTE here is an update on a follow up visit on male Eben Arenas at the clinic June 24, 2024 Diagnosis: 1. 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 HPI: Eben Arenas is a 63 year old year old male here for follow up. He has started back on the testosterone and overall doing well. PAST MEDICAL HISTORY Diagnosis Date Former smoker HLD (hyperlipidemia) [place] (hard of hearing) HTN (hypertension) Long-term use of aspirin therapy OA (osteoarthritis) of knee Polycythemia S/P right knee arthroscopy TIA (transient ischemic attack) Social History Tobacco Use Smoking status: Former Passive exposure: Past Smokeless tobacco: Former Types: Chew Quit date: 09/12/2016 Tobacco comments: QUIT 15 YEARS AGO Vaping Use Vaping status: Never Used Substance Use Topics Alcohol use: Yes Comment: [...] of hands/feet. No weakness. PHYSICAL EXAMINATION: BP 124/77 Pulse 52 Temp (Src) 97.6 (Temporal Artery) Resp 18 Ht 5' 9.764 (1.77m) Wt 287 lb 0.6 oz (130.2kg) SpO2 95% BMI 41.47 kg/(m2). Wt 130.2 kg (287 lb) BMI [...] : Deferred LABS: Glucose (mg/dL) Date Value 03/22/2024 189 10/21/2019 Requisitioning entry error Potassium (mmol/L) Date Value 03/22/2024 4.0 10/21/2019 Requisitioning entry error Sodium (mmol/L) Date Value 03/22/2024 139 10/21/2019 Requisitioning entry error Chloride (mmol/L) Date Value 03/22/2024 104 10/21/2019 Requisitioning entry error CO2 (mmol/L) Date Value 03/22/2024 29 10/21/2019 Requisitioning entry error Creatinine (mg/dL) Date Value 03/22/2024 0.91 10/21/2019 Requisitioning entry error BUN (mg/dL) Date Value 03/22/2024 11 10/21/2019 Requisitioning entry error Anion Gap (mmol/L) Date Value 03/22/2024 6 10/21/2019 Requisitioning entry error Calcium (mg/dL) Date Value 10/21/2019 Requisitioning entry error Calcium, Total (mg/dL) Date Value 03/22/2024 9.9 Protein, Total (g/dL) Date Value 03/22/2024 6.8 10/21/2019 Requisitioning entry error Albumin (g/dL) Date Value 03/22/2024 4.2 10/21/2019 Requisitioning entry error Bilirubin, T (more content not included)... Normal [facility] Coding Summary.on 03-31-2024 Coding Summary. CLAEIilz44QJt2iVh+PG h lYWQ+RG9VHFTcB27dyAXu qX8mV5XVCJhHVdfzYEIKM HqXVaHhpeQfJJ9faFUmSG Ju IC8+CA5bQNLsXyxxqEBcu 3Z6mHR3Z62otf7fFWolzQ L6HTHrShUkhxtlc4njiFj 6IDcuNmluOyBt NTLyiR60ILB2qA83Dm78x DWxtQGla8bkmLn0EfIwPC EvAYZ7aKtbCYrjb4CfXNU bJ14seLOmh7L9 DFNtqTobzLInCzHpoYT2i J2lLSzankxqg9ywymfnZg l4nk64uWBxr2M1xLY7O9Z whjK7HMMufEJt RlpqqWANmD7uehfgh2joq ugcRmSaUQWmHGl8WCd5VU AioScgSuCjXY97YHX7MDM zhhCmU8OpVHMb uXjaKiV0v6Y9Uc3VT7XKP luuG7NJFBIBVEqhrNJ+PC 56uc02F4XiJfyiDbw6QYQ lENW5oBF4gE3x IKZsFJcbd7U7xRX4F6Yuq zIqlt4hq8acFLKiLKvaF5 9fiCJyp5H2TNFraIU5XTM byRwqAiKgpZ61 Oyc+HSNcqIcsg1KyIqjcu 2nhu7uecCp4TdssNVBbun MnfKmzEHX2q3VdKl0zHWU vvOB7sRH3mC5h YyHdQsI9BNbzH838QuPgh LIiZumxG81qG8RrnRO+PH KnAme3LHNesKynPR1eR2V hZGRpbmctbGVm rRzoZZ3zRAOodnefUWYfe N7gVIAfL3u2GtKwDcT0DS foB1KoXYJyvuapLp52mQ1 dDaNpWjT3OWim X5RneaL0FBWjrHNzGCwxP PG0S21be5N3OZKxMQBbPT K9rDT2oR0rvGmmhbzvsNK mdDsgdmVydGlj IQawLBlkL979SKHlbVjvF kNvZGluZyBEYXRlOiAgMD YvMjAvMjAyNDwvdGQ+PHR gVMV7hFruZSBr nZNdQZhdQs9aaUfitCnhT M2gTDEyzdbqSHUpeX8oPQ IriPKdzTlwMA5yHZVmbmt ns186UhHpVAJ9 KJKfnVFbS4PjjO2fRbJyZ VMlAHSmJ6XtwKYgGWziH5 11GRfmZkT6KFKlqpCxO7W sLWFsaWduOiB0 z4N1Rd5Rt2YwrxakT8Hgl LAvPxVqAjccZKz4C0CaPa wvdHI+KH26DVNgYX90RRg 0YNE2nLlpJYoe JMFzX2DnuS5uJpSdCCGxU GRkOyc+PHRhYmxlIHdpZH RoPScxMDAlJyBzdHlsZT0 lNp7yGPWxVPMt oZqzvVAcGxTbt9ngFCOwZ NqiDC8krMmhO0VlqBW3WR Hbz9k3Yz13O80rZ7YthJG +GEEwnIS0wTE5 sR0xVpZtVjI3SWfgH839G zLouJIyUlaja7kwh0qhwO e6KaI2WEGhweZviYmzQFX 1g7CgHw85M79a IHdpZHRoPSIxNSUiIHZhb Rawty0auF2mFs2+PGNvbC H8tHJ4zR1cBgRyPmL1GVb uE876CeAauQSv Giybv9rmo1grbFg7AbEtR HWffdXtiQegUMP2c5GtYl 76E7XroCsmb1IwJwb1ck2 0hOVpu1D7lOI3 G9HuSRHazddsuNFqyWmxA M1eTFThemoePZCenY1mXP HxP4e5ZcBbUhI1PCxyE9K bhzT1VAJeaMQe VNJakHUOoJ7vyppye1ojh oxcUgZfQEGfJRz5FSd0OF HswOgqAxEqVCU5YkA2QYQ 4dWBdlX8qqGke gchowQ1fYtm+JAE8oIIze DKUSQ2qVoyulXT+PHRkIH Y7fTfxNZecHQBhzG6eUXN sY1p5MwWuEmT7 PQxaL4NbczD2HVCzeHYkI MBuhAGVoW3nmxapc9doma ssBwCdTKJlWIl8YYa8YGD saWduOiBsZWZ0 RzA7HLH8lTJtcJ0rpOzkn oxwpW8fXve+QmlydGggRG N1BCu6N1MpWip9QTLzsXp aWS5csRXqAGwa Kl5svKgqfHseJF4mCDTjg gjft462SuXra8kkIKGniU YcIRhkVXT2E01ig1J3DYF pLYKfUFA8uTK4 dO6hbEpncxsgfERivLuwi bQjyWhgTKbhSKenN889EL CngLvoLsDiLSg4W3QlOvz 8DCEukMpaXU5z hTRxQLnbRc0hnKslzWmmL Y2mMYDrvhjsd744XbZkr7 bpJDDqnJGmCQsrNDQ2T20 wv8B0ENKzMXFl DVA0hLV6uT0opBrrrjsem GVmdDsgdmVydGljYWwtYW vmG085QRXwiTugYyWsnQu 3X4SlLux1YFXf aFgdJO4nsASrRPgpOi1kn HoaaIyuFI9hYKPnwjngn3 03YtGpm2anLUGyaABrWKo pRHI6D37jy6M5 ZDTdWNNiQHL1cBE5tV6bf GlnbjogbGVmdDsgdmVydG pqNEcpKBykP878AAIatEp nPlBhdGllbnQg PAybDLp6J5XoUtydlRV+P U71DURfGF10nAMycZTxp7 zrgJc7CmTbWFTiQSU4dMh oFAoul4MbYJUs W94lnCIyp2B7MPAwlJdby XUzRlSztMN8rH7hQCgzwa hld1sxwypuIwlru6qmrg7 4sZ08L04oCNqq ZHRoPSIzMCUiIHZhbGlnb g4ooO8mZj1+WLNzuIR2tY Q8oA1tGTHtZqP0KYqsE91 9InRvcCIvPjxj o8lcp4cahFs0NlP6FRQwp eIypLzpYPD0p1BoRt03D1 9sIHdpZHRoPSIyMCUiIHZ ynKzkmq6bgZ2h Ii8+WHWnuFU4wVF9fI3gO vJmCyU2PWluO445FwCciC VaFownJ47iK1FdyNG+PHR bCuo8XVNtmQpm ZM8kbVAlHRyeNs0uBKU3V hDeXrLyEVhlB8OpRMTdur tflxwksBS6EIYpBRAyiU7 5Zq7doPvoHXAx wWGEkI4bpjpyx3yafpkjF bHyEMDxPRx1ZCu3MAMuyB dsLqJvBOQ7ZkI7YUN6uMH jyJ9bpVxqoudo oH6zT8KxPUFndlnrAo66f L3vSjPsAjR6EMktHyj+Ql KMVT8JBbgdAbVMSW1wDnr vdGQ+PHRkIHN0 dYrpJEboPYUzuM1dBQFfS 4r3MiNdIgD0LWemU0NnTP TaytzxAa80hW0nXdKsJhA 8QQcxY2KyvsW1 JOVwsYWpPZzbAIR6E81nf 5J1PVUvVGRfLXC9tNJ4pR 1hbGlnbjogbGVmdDsgdmV ydGljYWwtYWxp A036ZYWbmNujIxBbVcD4E iV7LFp9F2JuBbq3HCTywI zxFQ9taUViSHmdLt6agIg isYmtBN9gWNNl goppRCMwnO2fTRJkbLIow CvrJR6oHHJxcghjk946Sp HyRGD5EKIkrSUqX1RxsZ1 yOiAjMDAwMDAw Y8CbtFSuLUwrF871QJnuR eJ2ZIPrtqSiG2GkPMWjbP unJlQ6p7U9Cf19YWOYYLR yczwvdGQ+PHRk LEJ3yCbgSJfpBNLazI3tO KLfF3m6JvQwKzC4PFdsX4 SwUPBqomqzJz27jI2aLxV pIjD0KRywU0Jf dmV2KNSwpFIgSJpzHIZ2Z 39sl5D3GNYiALHmWJV0zS X5dF3ekAzfqxdzqDVxhEy gdmVydGljYWwt ECxuA363HBTgmSmiXt8kk SL4W3DnQsl2FGHhxHwxQE 4yaOUtDIqwOd3ilHyczOf wAC5qQPGzdwza YYUvmL5tYOFumXPttPeiO T1vYLJuezqjn892VpDkPB U1SQLuvZLnH5XwsY7oDsS lBGXuGFQhA5Pq tWWbRUdbQ777IThhYnY1H FFcpmGjE6WkEHEwjIhfLf E5a1P8Wl9YORdbBN1gnbN tBE1kjoS3K3Rl PjwvdHI+DC55WOWgCM26q PHjqXSwp6qvbTt8XkBwXF FdTKM6eYyaMNkct4ElQJZ oE38jhZWnf9Q1 HIIxzPaqtIJxObZcgEQ2y N9wRJequbtyq9wkcjomNl qum3epfd09nM76S89vKTf pZHRoPSIzMCUi ETTorAputn0dtP7dRf4+P ZEiiPX7ePP2lP8wOcKyQw C1ZTjxD276GoPthFEeUnz zi9mlo3ccoGg1 XxRvUZPgyxHarPraXRJ0l 1BePs17R04jIVmcQTPvLI HcKLKsRHNqkIvyyh0jeK1 wIi8+UV0vl1fv sr36fV17xHF+DUHiCZR4o ZjyZXpmLUAzgX6rSQkdBj Z3AIZcYgFrhH64iMIsQQn xKl3zuOggyBsi HG6kIBPqtuxam873RpAuw 2lrCKQrfJKrZVobHKH2F0 4xw8E4BAIqAHIsIQG8iXB 2qM1rsYixgznc bGVmdDsgdmVydGljYWwtY WovG610VULtpOpdOaQthF GsB8vjhbFJLQ4mXzuieIY +JSLvUOY7mXvc HHbyGLVsyZ1gXSOnJ7i8V cKeBqL3LKfzW4EptpR0DO XfoAHgBBMpfPDUmH6jknz wa9cdfgtkKcNt HJVmPRl1HXf8YFJszMnbB lUkYCM4PoX8SCA1wPFztK 2zcHpoekpvgP9nPtw+Rkl OOjwvdGQ+PHRk ENC2sAulHJvnKLTiaL4pX WSgR9g0HiBjMcD4OPzlL3 KovvR0EHSkkHInHPTenLD XqN6nzxbdw1fq ogayOgNjZAGcJFd4LYc5P BGudDxbAgDsMCQ5ThI9TP A3gZOuiP7ooPwpsxqyrG7 wOyc+TVJOOjwv dGQ+ADOmZIM6vVusTPthP DVzxB7zVKSzQ1v6GaHdKg X2LIcbG3QcvtE4ERUprMT rFKTmxHYCgS7w brlpu7fnaqfxUrUgPIJtK Wj8GVv6QGBncIctClDyRA S1JyE7PBF0mBCxoX2xwQj twgrwtA5uTwm+ UTC1YBZ0HV05PS04B5GiE jwvdGFibGU+PHRhYmxlIH dpZHRoPScxMDAlJyBzdHl kDC0lSy7oWXKw LWNvbGxhcHNlO (more content not included)... Normal [facility] Consent for Procedure/Surger yon 03-29-2024 Consent for Procedure/Surgery [id number]#1 .00TIFF [facility] Consent for Treatmenton 03-12 Consent for Treatment [id number]# 1.00TIFF [facility] Discharge Instructionson Discharge Instructions [id number]#1 .00TIFF [facility] IntraOperative Documentson 0 03-29-2024 IntraOperative Documents [id number]#1 .00TIFF Normal [facility] IntraOperative Documents [id number]#1 .00TIFF Normal [facility] Main OR Intraoperative Recor don 03-29-2024 Main OR Intraoperative Record IntraOp Document Type FTPM Summary Primary Physician: David Cao DO Finalized Date/Time: 03/29/24 10:37:02 Pt. Name: EBEN ARENAS Vicky Gee/Sex: 1960 Male Med Rec #: [id number] Physician: David Cao DO Financial #: [id number] Pt. Type: P Room/Bed: / Admit/Disch: 03/29/24 08:40:32 - Institution: Case Times FTPM Entry 1 Patient Times In Room 03/29/24 10:13:00 Out Room 03/29/24 10:36:00 Procedure Times Start 03/29/24 10:16:00 Stop 03/29/24 10:35:00 Anesthesia Times Last Modified By: Palmer NIEVES, Flaquita Matute 03/29/24 10:36:57 Case Attendance FTPM Entry 1 Entry 2 Entry 3 Case Attendee David Cao DO, RN, Sheridan Staton RN Role Performed Surgeon - Primary Supervisor Keymodule Assembly - Primary Scrub - Primary Time In 03/29/24 10:13:00 03/29/24 10:13:00 03/29/24 10:13:00 Time Out 03/29/24 10:36:00 03/29/24 10:36:00 03/29/24 10:36:00 Procedure LUMBAR RADIO FREQUENCY LUMBAR RADIO FREQUENCY LUMBAR RADIO FREQUENCY ABLATION(Bilateral) ABLATION(Bilateral) ABLATION(Bilateral) Comments Last Modified By: Palmer NIEVES, Flaquita Chakraborty RN, Flaquita Reed RN 03/29/24 10:36:57 03/29/24 10:36:57 03/29/24 10:36:57 Entry 4 Entry 5 Case Attendee Sonia VALDIVIA, Heavenly Rich Role Performed Music Critic Music Critic Time In 03/29/24 10:13:00 03/29/24 10:13:00 Time Out 03/29/24 10:36:00 03/29/24 10:36:00 Procedure LUMBAR RADIO FREQUENCY LUMBAR RADIO FREQUENCY ABLATION(Bilateral) ABLATION(Bilateral) Comments Last Modified By: Flaquita Chakraborty RN, RN, Kayla J 03/29/24 10:36:58 03/29/24 10:36:58 Perioperative Protocols FTPM [...] X-ray Applicable) PreOp Antibiotic No Time Out Flaquita Chakraborty RN, Enma Roper RN, Nash Swartz DO, Bradford A., Roll RT, Daniel P Time Out Complete [...] Yes Primary Surgeon David Cao DO Start 03/29/24 10:16:00 Stop 03/29/24 10:35:00 Anesthesia Type [...] and tissue Entry 1 Skin Integrity Intact, [place], Warm, and Skin Abnormality No Dry Outcomes [...] Leg Position (more content not included)... Normal [facility] Main OR Preoperative Recordo n 03-29-2024 Main OR Preoperative Record Holding Area Document Type FTPM Summary Primary Physician: David Cao DO Finalized Date/Time: 03/29/24 09:04:49 Pt. Name: EBEN ARENAS/Sex: 1960 Male Med Rec #: [id number] Physician: David Cao DO Financial #: [id number] Pt. Type: P Room/Bed: / Admit/Disch: 03/29/24 [...] By: Margarita Russell RN 03/29/24 09:04 Normal [facility] Consultation Noteon 03-27-20 Consultation Note [id number]#1 .00TIFF Normal [facility] Office/Clinic Note-Physician on 03-25-2024 Office/Clinic Note-Physician [id number]# 1.00TIFF Normal [facility] CBC W Auto Differential pane l (Bld)on 03-22-2024 Basophils (Bld) [#/Vol] 0.06 10*3/uL Normal <0.11 [facility] Comment on above: Order Comment: Speci men Type: BLOOD SPECIMEN Ordering Facility: [facility] Address: [address] [place] [address] Performed By: #### 5 0190-8, 2276-4 #### [facility] CLIA [id number] [address] [place] [address] [place] [address] [place] Basophils/100 WBC (Bld) 0.9 % Normal [facility] Comment on above: Order Comment: Speci men Type: BLOOD SPECIMEN Ordering Facility: [facility] Address: [address] [place] [address] Performed By: #### 5 0190-8, 2275-4 #### [facility] CLIA [id number] [address] [place] [address] [place] Differential cell count method Nom (Bld) Auto Normal [facility] Comment on above: Order Comment: Speci men Type: BLOOD SPECIMEN Ordering Facility: [facility] Address: [address] [place] [address] Performed By: #### 5 0190-8, 2276-01 #### [facility] CLIA [id number] [address] [place] [address] [place] Eosinophils (Bld) [#/Vol] 0.48 10*3/uL High <0.46 [facility] Comment on above: Order Comment: Speci men Type: BLOOD SPECIMEN Ordering Facility: [facility] Address: [address] [place] [address] Performed By: #### 5 0190-8, 2276-01 #### [facility] CLIA [id number] [address] [place] [address] [place] Eosinophils/100 WBC (Bld) 7.6 % Normal [facility] Comment on above: Order Comment: Speci men Type: BLOOD SPECIMEN Ordering Facility: [facility] Address: [address] [place] [address] Performed By: #### 5 0190-8, 2276-01 #### [facility] CLIA [id number] [address] [place] [address] [place] Erythrocyte distribution width (RBC) [Ratio] 12.6 % Normal 11.5-15.0 [facility] Comment on above: Order Comment: Speci men Type: BLOOD SPECIMEN Ordering Facility: [facility] Address: [address] [place] [address] Performed By: #### 5 0190-8, 2275-4 #### [facility] CLIA [id number] [address] [place] [address] [place] Hematocrit (Bld) [Volume fraction] 43.4 % Normal 39.0-51.0 [facility] Comment on above: Order Comment: Speci men Type: BLOOD SPECIMEN Ordering Facility: [facility] Address: [address] [place] [address] Performed By: #### 5 0190-8, 2276-01 #### [facility] CLIA [id number] [address] [place] [address] [place] Hemoglobin (Bld) [Mass/Vol] 15.3 g/dL Normal 13.0-17.0 [facility] Comment on above: Order Comment: Speci men Type: BLOOD SPECIMEN Ordering Facility: [facility] Address: [address] [place] [address] Performed By: #### 5 0190-8, 2276-01 #### [facility] CLIA [id number] [address] [place] [address] [place] Immature granulocytes (Bld) [#/Vol] 10*3/uL Normal <0.10 [facility] Comment on above: Order Comment: Speci men Type: BLOOD SPECIMEN Ordering Facility: [facility] Address: [address] [place] [address] Performed By: #### 5 0190-8, 2276-01 #### [facility] CLIA [id number] [address] [place] [address] [place] Immature granulocytes/100 WBC (Bld) 0.3 % Normal [facility] Comment on above: Order Comment: Speci men Type: BLOOD SPECIMEN Ordering Facility: [facility] Address: [address] [place] [address] Performed By: #### 5 0190-8, 2275- #### [facility] CLIA [id number] [address] [place] [address] [place] Lymphocytes (Bld) [#/Vol] 1.50 10*3/uL Normal 1.00-4.00 [facility] Comment on above: Order Comment: Speci men Type: BLOOD SPECIMEN Ordering Facility: [facility] Address: [address] [place] [address] Performed By: #### 5 0190-8, 2275- #### [facility] CLIA [id number] [address] [place] [address] [place] Lymphocytes/100 WBC (Bld) 23.7 % Normal [facility] Comment on above: Order Comment: Speci men Type: BLOOD SPECIMEN Ordering Facility: [facility] Address: [address] [place] [address] Performed By: #### 5 0190-8, 2276-01 #### [facility] CLIA [id number] [address] [place] [address] [place] MCH (RBC) [Entitic mass] 33.3 pg Normal 26.0-34.0 [facility] Comment on above: Order Comment: Speci men Type: BLOOD SPECIMEN Ordering Facility: [facility] Address: [address] [place] [address] Performed By: #### 5 0190-8, 2276-01 #### [facility] CLIA [id number] [address] [place] [address] [place] MCHC (RBC) [Mass/Vol] 35.3 g/dL Normal 30.5-36.0 [facility] Comment on above: Order Comment: Speci men Type: BLOOD SPECIMEN Ordering Facility: [facility] Address: [address] [place] [address] Performed By: #### 5 0190-8, 2275- #### [facility] CLIA [id number] [address] [place] [address] [place] MCV (RBC) [Entitic vol] 94.3 fL Normal 80.0-100.0 [facility] Comment on above: Order Comment: Speci men Type: BLOOD SPECIMEN Ordering Facility: [facility] Address: [address] [place] [address] Performed By: #### 5 0190-8, 2275- #### [facility] CLIA [id number] [address] [place] [address] [place] Monocytes (Bld) [#/Vol] 0.76 10*3/uL Normal <0.87 [facility] Comment on above: Order Comment: Speci men Type: BLOOD SPECIMEN Ordering Facility: [facility] Address: [address] [place] [address] Performed By: #### 5 0190-8, 2276-01 #### [facility] CLIA [id number] [address] [place] [address] [place] Monocytes/100 WBC (Bld) 12.0 % Normal [facility] Comment on above: Order Comment: Speci men Type: BLOOD SPECIMEN Ordering Facility: [facility] Address: [address] [place] [address] Performed By: #### 5 0190-8, 2276-01 #### [facility] CLIA [id number] [address] [place] [address] [place] Neutrophils (Bld) [#/Vol] 3.52 10*3/uL Normal 1.45-7.50 [facility] Comment on above: Order Comment: Speci men Type: BLOOD SPECIMEN Ordering Facility: [facility] Address: [address] [place] [address] Performed By: #### 5 0190-8, 2276-01 #### [facility] CLIA [id number] [address] [place] [address] [place] Neutrophils/100 WBC (Bld) 55.5 % Normal [facility] Comment on above: Order Comment: Speci men Type: BLOOD SPECIMEN Ordering Facility: [facility] Address: [address] [place] [address] Performed By: #### 5 0190-8, 2275-4 #### [facility] CLIA [id number] [address] [place] [address] [place] Nucleated RBC (Bld) [#/Vol] 10*3/uL Normal <0.01 [facility] Comment on above: Order Comment: Speci men Type: BLOOD SPECIMEN Ordering Facility: [facility] Address: [address] [place] [address] Performed By: #### 5 0190-8, 2275-4 #### [facility] CLIA [id number] [address] [place] [address] [place] Nucleated RBC/100 WBC (Bld) [Ratio] 0.0 /100 WBC Normal [facility] Comment on above: Order Comment: Speci men Type: BLOOD SPECIMEN Ordering Facility: [facility] Address: [address] [place] [address] Performed By: #### 5 0190-8, 2275-4 #### [facility] CLIA [id number] [address] [place] [address] [place] Platelet mean volume (Bld) [Entitic vol] 12.2 fL Normal 9.0-12.7 [facility] Comment on above: Order Comment: Speci men Type: BLOOD SPECIMEN Ordering Facility: [facility] Address: [address] [place] [address] Performed By: #### 5 0190-8, 2275- #### [facility] CLIA [id number] [address] [place] [address] [place] Platelets (Bld) [#/Vol] 149 10*3/uL Low 150-400 [facility] Comment on above: Order Comment: Speci men Type: BLOOD SPECIMEN Ordering Facility: [facility] Address: [address] [place] [address] Performed By: #### 5 0190-8, 2276-4 #### [facility] CLIA [id number] [address] [place] [address] [place] RBC (Bld) [#/Vol] 4.60 10*6/uL Normal 4.20-6.00 [facility] Comment on above: Order Comment: Speci men Type: BLOOD SPECIMEN Ordering Facility: [facility] Address: [address] [place] [address] Performed By: #### 5 0190-8, 2276-4 #### [facility] CLIA [id number] [address] [place] [address] [place] WBC (Bld) [#/Vol] 6.34 10*3/uL Normal 3.70-11.00 [facility] Comment on above: Order Comment: Speci men Type: BLOOD SPECIMEN Ordering Facility: [facility] Address: [address] [place] [address] Performed By: #### 5 0190-8, 2276-4 #### [facility] CLIA [id number] [address] [place] [address] [place] CNOVSPon 03-22-2024 CNOVSP Visit (SP) Office ([facility]) EBEN ARENAS ([id number]) 1960 M Date Time Provider Department 03/22/24 1:30 PM ANSELMO MCPHERSON During your visit today, we recorded the following information about you: Temperature Pulse Respiration Blood pressure 97.1 degrees 78/minute 18/minute 123/70 Weight Height 130 kg 1.772 m Anselmo Mcpherson MD 03/22/2024 1:48 PM Signed PATIENT NAME: Eben Arenas CLINIC NO.: [id number] ATTENDING PHYSICIAN: Anselmo Mcpherson MD DATE OF [...] HISTORY Diagnosis Date Former smoker HLD (hyperlipidemia) [place] (hard of hearing) HTN (hypertension) Long-term use [...] error Biliru (more content not included)... Normal [facility] Comprehensive metabolic 2000 panelon 03-22-2024 Albumin [Mass/Vol] 4.2 g/dL Normal 3.9-4.9 [facility] Comment on above: Order Comment: Speci men Type: BLOOD SPECIMEN Ordering Facility: [facility] Address: [address] [place] [address] Performed By: #### 2 4323-8 #### [facility] CLIA [id number] [address] [place] [id number] ALP [Catalytic activity/Vol] 100 U/L Normal 38-113 [facility] Comment on above: Order Comment: Speci men Type: BLOOD SPECIMEN Ordering Facility: [facility] Address: [address] [place] [address] Performed By: #### 2 4323-8 #### [facility] CLIA [id number] [address] [place] [id number] ALT [Catalytic activity/Vol] 32 U/L Normal 10-54 [facility] Comment on above: Order Comment: Speci men Type: BLOOD SPECIMEN Ordering Facility: [facility] Address: [address] [place] [address] Performed By: #### 2 4323-8 #### [facility] CLIA [id number] [address] [place] [address] Anion gap [Moles/Vol] 6 mmol/L Low 8-15 [facility] Comment on above: Order Comment: Speci men Type: BLOOD SPECIMEN Ordering Facility: [facility] Address: [address] [place] [address] Performed By: #### 2 4323-8 #### [facility] CLIA [id number] [address] [place] [address] AST [Catalytic activity/Vol] 26 U/L Normal 14-40 [facility] Comment on above: Order Comment: Speci men Type: BLOOD SPECIMEN Ordering Facility: [facility] Address: [address] [place] [address] Performed By: #### 2 4323-8 #### [facility] CLIA [id number] [address] [place] [address] Bilirubin [Mass/Vol] 0.6 mg/dL Normal 0.2-1.3 [facility] Comment on above: Order Comment: Speci men Type: BLOOD SPECIMEN Ordering Facility: [facility] Address: [address] [place] [address] Performed By: #### 2 4323-8 #### [facility] CLIA [id number] [address] [place] [address] Calcium [Mass/Vol] 9.9 mg/dL Normal 8.5-10.2 [facility] Comment on above: Order Comment: Speci men Type: BLOOD SPECIMEN Ordering Facility: [facility] Address: [address] [place] [address] Performed By: #### 2 4323-8 #### [facility] CLIA [id number] [address] [place] [address] Chloride [Moles/Vol] 104 mmol/L Normal 98-107 [facility] Comment on above: Order Comment: Speci men Type: BLOOD SPECIMEN Ordering Facility: [facility] Address: [address] [place] [address] Performed By: #### 2 4323-8 #### [facility] CLIA [id number] [address] [place] [address] CO2 [Moles/Vol] 29 mmol/L Normal 22-30 [facility] Comment on above: Order Comment: Speci men Type: BLOOD SPECIMEN Ordering Facility: [facility] Address: [address] [place] [address] Performed By: #### 2 4323-8 #### [facility] CLIA [id number] [address] [place] [address] Creatinine [Mass/Vol] 0.91 mg/dL Normal 0.73-1.22 [facility] Comment on above: Order Comment: Speci men Type: BLOOD SPECIMEN Ordering Facility: [facility] Address: [address] [id number] Performed By: #### 2 4323-8 #### [facility] CLIA [id number] [address] [place] [address] Creatinine and Glomerular filtration rate.predicted panel (S/P/Bld) 94 mL/min/1.73m??? Normal >=60 [facility] Comment on above: Order Comment: Speci men Type: BLOOD SPECIMEN Ordering Facility: [facility] Address: [address] [place] [address] Result Comment: Nyla mated Glomerular Filtration Rate [...] actual GFR. Performed By: #### 2 4323-8 #### [facility] CLIA [id number] [address] [place] [address] Glucose [Mass/Vol] 189 mg/dL High 74-99 [facility] Comment on above: Order Comment: Isabeli carl Type: BLOOD SPECIMEN Ordering Facility: [facility] Address: [address] [id number] Result Comment: The [place] [employer] (ADA) provides guidance for cutoff [...] Standards of Medical Care in Diabetes 2016, [place] [employer]. Diabetes Care. 2016.39(Suppl 1). Performed By: #### 2 4323-8 #### [facility] CLIA [id number] [address] [place] [address] Potassium [Moles/Vol] 4.0 mmol/L Normal 3.7-5.1 [facility] Comment on above: Order Comment: Speci men Type: BLOOD SPECIMEN Ordering Facility: [facility] Address: [address] [place] [address] Performed By: #### 2 4323-8 #### [facility] CLIA [id number] [address] [place] [address] Protein [Mass/Vol] 6.8 g/dL Normal 6.3-8.0 [facility] Comment on above: Order Comment: Speci men Type: BLOOD SPECIMEN Ordering Facility: [facility] Address: [address] [place] [address] Performed By: #### 2 4323-8 #### [facility] CLIA [id number] [address] [place] [address] Sodium [Moles/Vol] 139 mmol/L Normal 136-144 [facility] Comment on above: Order Comment: Speci men Type: BLOOD SPECIMEN Ordering Facility: [facility] Address: [address] [place] [address] Performed By: #### 2 4323-8 #### [facility] CLIA [id number] [address] [place] [address] Urea nitrogen [Mass/Vol] 11 mg/dL Normal 9-24 [facility] Comment on above: Order Comment: Speci men Type: BLOOD SPECIMEN Ordering Facility: [facility] Address: [address] [place] [address] Performed By: #### 2 4323-8 #### [facility] CLIA [id number] [address] [place] [address] Patient Correspondenceon Patient Correspondence [id number]# 1.00TIFF Normal [facility] XR Chest 2 Viewson XR Chest 2 Views Exam Date/Time: 03/01/2024 [...] mGy = na DAP = na Normal [facility] CT Maxillofacial w/o Contras ton 03-02-2024 [...] Marysol High Transcribed by: KURT Technologist: GUIDO [facility] Consent for Treatmenton 02-10 Consent for Treatment [id number]#1 .00TIFF [facility] Insurance Correspondence Off iceon 02-23-2024 Insurance Correspondence Office [id number] #3.00TIFF [facility] Physician Orderon 02-22-2024 Physician Order [id number]# 1.00TIFF [facility] Outside Records Officeon Outside Records Office [id number] #1.00TIFF [facility] Ambulatory Visit Summaryon 0 02-12-2024 Ambulatory Visit Summary EBEN ARENAS :1960 Visit Date:02/12/2024 Ambulatory Visit Instructions Your Diagnosis Epidermal cyst Your Care Team Attending Physician - SALVATORE JAVIER, Ruben Martinez Primary Care Physician - MCDANIELS MD, JULIA This Is Your Medications List apixaban (Eliquis 5 mg oral tablet) baclofen (baclofen 10 mg Tab) hydrochlorothiazide-l isinopril (hydrochlorothiazide- lisinopril 12.5 mg-20 mg Tab) multivitamin with minerals [...] Every day as needed for Pain Unchanged hydrochlorothiazide-l isinopril (hydrochlorothiazide- lisinopril 12.5 mg-20 mg Tab) 1 Tablets By [...] for choosing us for your care. Normal [facility] Consent for Treatmenton 05-0 Consent for Treatment [id number]#1 .00TIFF [facility] Consultation Noteon 02-12-20 Consultation Note Patient: EBEN [...] tab(s), Oral, Daily, PRN Pain, Refills(s) 0 hydrochlorothiazide-l isinopril 12.5 mg-20 mg Tab: 1 tab(s), Oral, Daily, Refill(s) 0, High blood pressure multivitamin with minerals: Refill(s) 0 niacin 500 mg ER Tab: 500 mg = 1 tab(s), Oral, Daily, Refills(s) 0, High cholesterol sotalol 80 mg Tab: 40 mg = 0.5 tab(s), Oral, BID Problem list: All Problems High iron content / SNOMED CT 915040410 / Confirmed Localized osteoarthritis of knees, bilateral / SNOMED CT 4355838574 / Confirmed Hypercholesteremia / SNOMED CT 90024198 / Confirmed Type 2 diabetes mellitus / SNOMED CT 792418870 / Confirmed Erectile dysfunction / SNOMED CT 8535071246 / Confirmed Hypercholesterolemia / SNOMED CT 42040099 / Confirmed Lumbar spondylosis / SNOMED CT 036872461 / Confirmed Morbid obesity / SNOMED CT 932557108 / Confirmed Peripheral vascular disease / SNOMED CT 0837346284 / Confirmed Platelet disorder / SNOMED CT 47003611 / Confirmed Seasonal allergic rhinitis / SNOMED CT 664221273 / Confirmed Secondary polycythemia / SNOMED CT 159584089 / Confirmed HTN (hypertension) / SNOMED CT 1805850140 / Confirmed BMI 40.0-44.9, adult / SNOMED CT 2834919705 / Confirmed Bilateral stenosis of carotid arteries / SNOMED CT 6730034672 / Confirmed Outside Source Comment: Last Assessment & Plan: Invalid Interpretation Code Carotid duplex US\.br\Intermi ttent claudication / SNOMED CT 046540756 / Confirmed\.br\ Outside Source Comment: Last Assessment & Plan: [facility] Comment on above: Result Comment: Elec [...] Wilcox Only if needed [address] [place] [address]- Additional Instructions: Problem List/Past Medical [...] tablet, 5 mg= 1 tab(s), Oral, BID hydrochlorothiazide-l isinopril 12.5 mg-20 mg Tab, 1 tab(s), Oral, [...] BNT-162b2 vax 08/03/2021 Recorded 2024-01-15: TPV60 Normal [facility] Comment on above: Result Comment: Elec tronically Signed By: SALVATORE JAVIER, Ruben Castorena\Date and Time Signed: 02/12/24 14:10 EDT Office/Clinic Note-Physician on 02-12-2024 Office/Clinic Note-Physician [id number]# 1.00TIFF Normal [facility] Patient Correspondenceon Patient Correspondence [id number]# 1.00TIFF Normal [facility] Patient Correspondence [id number]# 1.00TIFF Normal [facility] Patient Correspondence [id number]# 1.00TIFF Normal [facility] Patient History Officeon Patient History Office [id number]# 1.00TIFF Normal [facility] BMPon 02-10-2024 Anion gap [Moles/Vol] 11 mmol/L Normal 6-16 [facility] Comment on above: Performed By: #### 2 860906, 7962575, [id number] #### [facility] [address] [place] [address] Calcium [Mass/Vol] 9.4 mg/dL Normal 8.9-11.1 [facility] Comment on above: Performed By: #### 2 526088, 2545392, 17901956 #### [facility] [address] [place] [address] Chloride [Moles/Vol] 105 mmol/L Normal 101-111 [facility] Comment on above: Performed By: #### 2 546647, 0513329, 91242243 #### [facility] [address] [place] [address] CO2 [Moles/Vol] 29 mmol/L Normal 21-31 [facility] Comment on above: Performed By: #### 2 238226, 6848397, 04863067 #### [facility] [address] [place] [address] Creatinine [Mass/Vol] 0.8 mg/dL Normal 0.5-1.3 [facility] Comment on above: Performed By: #### 2 503710, 8033475, 34346848 #### [facility] [address] [place] [address] Glucose [Mass/Vol] 121 mg/dL Normal 55-199 [facility] Comment on above: Performed By: #### 2 804914, 4752078, 09087902 #### [facility] [address] [place] [address] Potassium [Moles/Vol] 4.1 mmol/L Normal 3.5-5.3 [facility] Comment on above: Performed By: #### 2 996281, 3255725, 55771286 #### [facility] [address] [place] [address] Sodium [Moles/Vol] 141 mmol/L Normal 135-145 [facility] Comment on above: Performed By: #### 2 679475, 4428505, 65350816 #### [facility] [address] [place] [address] Urea nitrogen [Mass/Vol] 10 mg/dL Normal 5-21 [facility] Comment on above: Performed By: #### 2 686386, 6873686, 83666120 #### [facility] [address] [place] [address] Urea nitrogen/Creatinine [Mass ratio] 12 No Units Normal 10-20 [facility] Comment on above: Performed By: #### 2 326105, 3367832, 72733652 #### [facility] [address] [place] [address] CBC w/ Auto Diffon 4 Basophils/100 WBC (Bld) 0.9 % Normal 0.0-2.0 [facility] Comment on above: Performed By: #### 2 903496, 9575060, 53159557 ####[facility] [address] [place] [address] Basophils/Leukocytes Auto (Bld) [Pure # fraction] 0.1 E9/L Normal 0.0-0.2 [facility] Comment on above: Performed By: #### 2 460723, 8360425, 28629153 ####[facility] [address] [place] [address] Eosinophils (Bld) [#/Vol] 0.7 E9/L High 0.0-0.5 [facility] Comment on above: Performed By: #### 2 641908, 3548929, 10329367 ####[facility] [address] [place] [address] Eosinophils/100 WBC (Bld) 10.8 % High 0.0-8.0 [facility] Comment on above: Performed By: #### 2 443257, 9980801, 98903445 ####[facility] [address] [place] [address] Erythrocyte distribution width (RBC) [Ratio] 14.2 % Normal 10.9-14.2 [facility] Comment on above: Performed By: #### 2 428261, 7327979, 38914996 ####[address] [address] Hematocrit (Bld) [Volume fraction] 47.2 % Normal 37.7-49.0 [facility] Comment on above: Performed By: #### 2 433886, 3160224, 77704635 ####[address] [address] Hemoglobin (Bld) [Mass/Vol] 15.9 g/dL Normal 13.5-17.5 [facility] Comment on above: Performed By: #### 2 976193, 1984959, 66374149 ####[address] [address] Lymphocytes (Bld) [#/Vol] 1.8 E9/L Normal 1.0-4.0 [facility] Comment on above: Performed By: #### 2 618170, 0546341, 34672274 ####[address] [address] Lymphocytes/100 WBC (Bld) 27.9 % Normal 14.0-50.0 [facility] Comment on above: Performed By: #### 2 506481, 3408428, 94049692 ####[address] [address] MCH (RBC) [Entitic mass] 32.5 pg Normal 27.0-34.0 [facility] Comment on above: Performed By: #### 2 456736, 8402269, 10575300 ####[address] [address] MCHC (RBC) [Mass/Vol] 33.8 g/dL Normal 31.4-36.0 [facility] Comment on above: Performed By: #### 2 386655, 8431353, 64237958 ####[address] [address] MCV (RBC) [Entitic vol] 96.3 fL Normal 80.0-100.0 [facility] Comment on above: Performed By: #### 2 858197, 9663382, 02250830 ####[address] [address] Monocytes (Bld) [#/Vol] 0.7 E9/L Normal 0.2-1.0 [facility] Comment on above: Performed By: #### 2 546232, 5259617, 00142636 ####[address] [address] Neutrophils (Bld) [#/Vol] 3.2 E9/L Normal 2.0-7.5 [facility] Comment on above: Performed By: #### 2 981861, 6912366, 53322061 ####[address] [address] Neutrophils/100 WBC (Bld) 49.2 % Normal 36.0-75.0 [facility] Comment on above: Performed By: #### 2 608989, 1291738, 52581859 ####[address] [address] Platelet 155.0 E9/L Normal 150.0-500.0 [facility] Comment on above: Performed By: #### 2 264060, 3053429, 32536719 ####[address] [address] Platelet mean volume (Bld) [Entitic vol] 10.4 fL Normal 6.4-10.8 [facility] Comment on above: Performed By: #### 2 894507, 5371926, 32665341 ####[address] [place] [address] RBC (Bld) [#/Vol] 4.9 E12/L Normal 4.3-5.9 [facility] Comment on above: Performed By: #### 2 745920, 1984154, 90296739 ####[facility] [address] [place] [address] WBC corrected for nucl RBC Auto (Bld) [#/Vol] 6.4 E9/L Normal 4.0-11.0 [facility] Comment on above: Result Comment: Slid e review performed Performed By: #### 2 314395, 2003900, 38735623 ####[facility] [address] [place] [address] CHEMISTRYOrdered By: [employer] SYSTEM on 02-10-2024 Anion gap [Moles/Vol] 11 [...] - 20 Remisol Chem Consent for Treatmenton 05-0 Consent for Treatment [id number]#1 .00TIFF Normal [facility] HEMATOLOGYOrdered By: SYSTEM SYSTEM on 02-10-2024 [...] [#/Vol] 0.7 E9/L Normal 0.2 - 1.0 E9/L Remisol Heme Monocytes/100 WBC (Bld) 11.2 % [...] review performed Physician Orderon 02-10-2024 Physician Order [id number]# 1.00TIFF Normal [facility] eGFRon 02-10-2024 eGFR 98 mL/min/1.73 m2 Normal >=59 [facility] Comment on above: Order Comment: Order added by Discern Expert. Performed By: #### 2 187053, 3049644, 64776021 ####[facility] [address] [place] [address] IntraOperative Documentson 0 02-08-2024 IntraOperative Documents [id number]#1 .00TIFF Normal [facility] Discharge Instructionson Discharge Instructions [id number]# 1.00TIFF Normal [facility] IntraOperative Documentson 0 02-05-2024 IntraOperative Documents [id number]# 1.00TIFF Normal [facility] Operative Reporton Operative Report SURGERY DATE: [...] and discharged to home in good condition. Rbuen Chase M.D. [facility] Dictated: 02/04/2024 [id number] Transcribed: 02/04/2024 cc:Julia Mcdaniels M.D. [facility] Comment on above: Result Comment: Elec tronically Signed By: SALVATORE JAVIER, Ruben Martinez\.br\Date and Time Signed: 02/05/24 06:56 EDT Pre-Op Checkliston 4 Pre-Op Checklist [id number]# 1.00TIFF [facility] Consent for Treatmenton 01-11 Consent for Treatment [id number]#1 .00TIFF [facility] Discharge Instructionson Discharge Instructions EBEN ARENAS [...] oral tablet) baclofen (baclofen 10 mg Tab) hydrochlorothiazide-l isinopril (hydrochlorothiazide- lisinopril 12.5 mg-20 mg Tab) multivitamin with minerals [...] PM EDT With: Ruben CHASE MD Where: [facility] Comment on above: Result Comment: Elec tronically Signed By: Lucio NIEVES, Jenniffer Fu\.br\Date and Time Signed: 02/04/24 14:56 EDT Inpatient Patient Summaryon 02-04-2024 Inpatient Patient Summary [place] [id number] [facility] Clinical Discharge Instructions PERSON INFORMATION Name: EBEN ARENAS [facility]#:[id number] PHYSICIANS Admitting Physician: Ruben CHASE MD Attending Physician: Ruben CHASE MD PCP: JULIA MCDANIELS MD Discharge Diagnosis: EIC (epidermal inclusion cyst) Comment: PATIENT EDUCATION INFORMATION Instructions: Medication Leaflets: Follow up: With: Address: When: Ruben CHASE [address] [place] [address], [address], [address] [place] [address] Business (1) Within 2 weeks Type Location Start Finish State Post Op 15 [facility] 02/12/2024 1:40 PM 02/12/2024 2:00 PM Confirmed Pain Management - Follow Up (FT) FT.Pain Mgmt [place] 02/12/2024 2:15 PM 02/12/2024 2:30 PM Confirmed MEDICATION LIST Medications to Continue with No Changes Other Medications apixaban (Eliquis 5 mg oral tablet) 1 Tablets By Mouth 2 times a day. baclofen (baclofen 10 mg Tab) 1 Tablets By Mouth every day as needed Pain. hydrochlorothiazide-l isinopril (hydrochlorothiazide- lisinopril 12.5 mg-20 mg Tab) 1 Tablets By Mouth every day. multivitamin with minerals niacin (niacin 500 mg ER Tab) 1 Tablets By Mouth every day. sotalol (sotalol 80 mg Tab) 0.5 Tablets By Mouth 2 times a day. triamcinolone nasal (Nasacort Allergy 24HR nasal spray) 1 Sprays Nasal Inhalation every day as needed Allergy symptoms. Comment: Normal [facility] Main OR Intraoperative Recor don 02-04-2024 Main OR Intraoperative Record IntraOp Document Type FT Summary Primary Physician: Ruben CHASE MD Finalized Date/Time: 02/04/24 16:05:41 Pt. Name: DAGOBERTOEBEN/Sex: 1960 Male Med Rec #: [id number] Physician: Ruben CHASE MD Financial #: [id number] Pt. Type: A Room/Bed: AX01/01 Admit/Disch: 02/04/24 12:07:19 - 02/04/24 15:00:00 Institution: Case Times FT Entry 1 Patient Times In Room 02/04/24 14:15:00 Out Room 02/04/24 14:45:00 Procedure Times Start 02/04/24 14:22:00 Stop 02/04/24 14:42:00 Anesthesia Times Last Modified By: Suresh Still Ii 02/04/24 15:49:04 General Comments: 02/04/24 CHART OPEN TO REVIEW ANSD SEND CHARGES. L MISSLER RN. Case Attendance FT Entry 1 Entry [...] Case Attendee Suresh Still Ii Role Performed Supervisor [employer] - Primary Time In 02/04/24 14:15:00 Time [...] Time Out SALVATORE JAVIER, Ruben Martinez, Ashlee Arnold, Suresh Still Ii Time Out Complete 02/04/24 14:20:00 Outcomes Met? [...] and tissue Entry 1 Skin Integrity Intact, [place], Warm, and Skin Abnormality No Dry Outcomes [...] By Marleni, (more content not included)... Normal [facility] Main OR PACU II [facility]ordon Main OR PACU II Record PACU Phase II Document Type FT Summary Primary Physician: Ruben CHASE MD Finalized Date/Time: 02/04/24 15:07:56 Pt. Name: EBEN ARENAS Vicky Gee/Sex: 1960 Male Med Rec #: [id number] Physician: Ruben CHASE MD Financial #: [id number] Pt. Type: A Room/Bed: [place] [address] Admit/Disch: 02/04/24 12:07:19 - Institution: Case Times [...] By: Jenniffer Valdes RN 02/04/24 15:07 Normal [facility] Main OR Preoperative Recordo n 02-04-2024 Main OR Preoperative Record PreOp Document Type FT Summary Primary Physician: Ruben CHASE MD Finalized Date/Time: 02/04/24 14:22:06 Pt. Name: EBEN ARENAS/Sex: 1960 Male Med Rec #: [id number] Physician: Ruben CHASE MD Financial #: [id number] Pt. Type: A Room/Bed: [place] [address] Admit/Disch: 02/04/24 12:07:19 - Institution: Case Times [...] By: Suresh Still Ii 02/04/24 14:22 Normal [facility] Main OR Preoperative Record Holding Area Document Type FT Summary Primary Physician: Ruben CHASE MD Finalized Date/Time: 02/04/24 12:24:15 Pt. Name: EBEN ARENAS/Sex: 1960 Male Med Rec #: [id number] Physician: Ruben CHASE MD Financial #: [id number] Pt. Type: A Room/Bed: [place] [address] Admit/Disch: 02/04/24 12:07:19 - Institution: Case Times Holding FT Pre-Care Text: Verifies consent for planned procedure, identifies individual values and wishes concerning care, includes family members in perioperative teaching Secures patient's records' belongings, and valuables, maintains patient's dignity and privacy, and maintains patient confidentiality Entry 1 In Holding 02/04/24 12:15:00 Outcomes Met? Yes Last Modified By: Isael Child RN 02/04/24 12:23:02 Post-Care Text: The [...] below for available reason Last Modified By: Isael Child RN 02/04/24 12:24:09 Finalized By: Isael Child RN Document Signatures Signed By: Isael Child RN 02/04/24 12:24 Isael Child RN 02/04/24 12:24 Normal [facility] Outpatient Surgery Discharge Instructionon 02-04-2024 Outpatient Surgery Discharge Instruction [place] [address] Patient Discharge Instructions PERSON INFORMATION Name: EBEN [...] THE NEAREST EMERGENCY ROOM OR CALL 911 I, EBEN ARENAS, have received the attached patient education materials/instruction s and have verbalized understanding: May we do a follow up call? Yes No I was present when discharge instructions were given Patient Signature Date Clinican/Nurse Signature Date Follow up: With: Address: When: Ruben Arri[address], [address], [facility] [address] [place] [address] Business (1) Within 2 weeks Type Location Start Finish State Post Op 15 [facility] 02/12/2024 1:40 PM 02/12/2024 2:00 PM Confirmed Pain Management - Follow Up (FT) FT.Pain Mgmt [place] 02/12/2024 2:15 PM 02/12/2024 2:30 PM Confirmed [...] to serve you. Thank you for choosing [facility] HERE ARE THE MEDICATION CHANGES THAT OCCURRED DURING YOUR HOSPITAL STAY Medications to Continue with No Changes Other Medications apixaban (Eliquis 5 mg oral tablet) 1 Tablets By Mouth 2 times a day. baclofen (baclofen 10 mg Tab) 1 Tablets By Mouth every day as needed Pain. hydrochlorothiazide-l isinopril (hydrochlorothiazide- lisinopril 12.5 mg-20 mg Tab) 1 Tablets By Mouth every day. multivitamin with minerals niacin (niacin 500 mg ER Tab) 1 Tablets By Mouth every day. sotalol (sotalol 80 mg Tab) 0.5 Tablets By Mouth 2 times a day. triamcinolone nasal (Nasacort Allergy 24HR nasal spray) 1 Sprays Nasal Inhalation every day as needed Allergy symptoms. PATIENT EDUCATION INFORMATION Instructions: Medication Leaflets: [facility] Patient Education - Texton 0 02-04-2024 [...] these instructions at home: Medicines ? Take gjpc-lmf-pbruksr and prescription medicines only as told by [...] and water are not available, use hand mud mixer helper. ? Change your dressing as told by [...] cyst was removed. ? Take or apply imry-ynz-ueihryx and prescription medicines only as told by your health care provider. ? Follow instructions from your health care provider about how to take care of your incision. This information is not intended to replace advice given to you by your health care provider. Make sure you discuss any questions you have with your health care provider. Document Revised: 01/02/2021 Document Reviewed: 01/02/2021 Elsevier Patient Education ? 2022 [employer] [facility] Consent for Procedure/Surger yon 02-03-2024 Consent for Procedure/Surgery [id number]#1 .00TIFF [facility] Consultation Noteon 01-29-20 Consultation Note [id number]#1 .00TIFF [facility] Ambulatory Visit Summaryon 0 01-28-2024 Ambulatory Visit Summary EBEN ARENAS :1960 Visit Date:01/28/2024 Ambulatory Visit Instructions Your Care Team Attending Physician - SALVATORE JAVIER, Ruben Martinez Primary Care Physician - ARSLAN JAVIER, JULIA This Is Your Medications List apixaban (Eliquis 5 mg oral tablet) baclofen (baclofen 10 mg Tab) hydrochlorothiazide-l isinopril (hydrochlorothiazide- lisinopril 12.5 mg-20 mg Tab) multivitamin with minerals [...] Every day as needed for Pain Unchanged hydrochlorothiazide-l isinopril (hydrochlorothiazide- lisinopril 12.5 mg-20 mg Tab) 1 Tablets By [...] you for choosing us for your care. [facility] Consent for Procedure/Surger yon 01-28-2024 Consent for Procedure/Surgery [id number]#1 .00TIFF [facility] Formson 01-28-2024 Forms [id number]#1 .00TIFF [facility] Consent for Procedure/Surger yon 01-27-2024 Consent for Procedure/Surgery [id number]# 1.00TIFF [facility] Consent for Treatmenton 01-10 Consent for Treatment [id number] [facility] [id number]#1. 00TIFF [facility] Discharge Instructionson Discharge Instructions [id number]# 1.00TIFF [facility] IntraOperative Documentson 0 01-27-2024 IntraOperative Documents [id number]# 1.00TIFF [facility] IntraOperative Documents [id number]# 1.00TIFF [facility] Main OR Intraoperative Recor don 01-27-2024 Main OR Intraoperative Record IntraOp Document Type FTPM Summary Primary Physician: David Cao DO Finalized Date/Time: 01/27/24 14:53:00 Pt. Name: EBEN ARENAS/Sex: 1960 Male Med Rec #: [id number] Physician: David Cao DO Financial #: [id number] Pt. Type: P Room/Bed: / Admit/Disch: 01/27/24 13:30:13 - Institution: Case Times FTPM Entry 1 Patient Times In Room 01/27/24 14:42:00 Out Room 01/27/24 14:51:00 Procedure Times Start 01/27/24 14:45:00 Stop 01/27/24 14:50:00 Anesthesia Times Last Modified By: Darlin Rizo RN 01/27/24 14:50:28 Case Attendance FTPM Entry 1 Entry 2 Entry 3 Case Attendee David Cao DO, RN, Madison A Roderick RN, Flaquita Matute Role Performed Surgeon - Primary Supervisor Keymodule Assembly - Primary Scrub - Primary Time In 01/27/24 14:42:00 01/27/24 14:42:00 01/27/24 14:42:00 Time Out 01/27/24 14:51:00 01/27/24 14:51:00 01/27/24 14:51:00 Procedure MEDIAL BRANCH MEDIAL BRANCH MEDIAL BRANCH BLOCK(Bilateral) BLOCK(Bilateral) BLOCK(Bilateral) Comments Last Modified By: Darlin Rizo RN, RN, Madison A Pritchard RN, Madison A 01/27/24 14:50:29 01/27/24 14:50:29 01/27/24 14:50:29 Entry 4 Case Attendee Walter Boyce Role Performed Music Critic Time In 01/27/24 14:42:00 Time Out 01/27/24 [...] Roderick RN, Nash Guzman DO, Bradford A., Hargrove, Bryce Time Out Complete 01/27/24 14:42:00 Outcomes Met? [...] and tissue Entry 1 Skin Integrity Intact, [place], Warm, and Skin Abnormality No Dry Outcomes [...] Darrius Martinez (more content not included)... Normal [facility] Main OR Preoperative Recordo n 01-27-2024 Main OR Preoperative Record Holding Area Document Type FTPM Summary Primary Physician: David Cao DO Finalized Date/Time: 01/27/24 13:49:49 Pt. Name: EBEN ARENAS Vicky Gee/Sex: 1960 Male Med Rec #: [id number] Physician: David Cao DO Financial #: [id number] Pt. Type: P Room/Bed: / Admit/Disch: 01/27/24 [...] By: Margarita Russell RN 01/27/24 13:49 Normal [facility] Physician Referralon 024 Physician Referral [id number]#1 .00TIFF Normal [facility] Patient Correspondenceon Patient Correspondence [id number]# 1.00TIFF Normal [facility] Automated basophil %on 12-28 Basophils/100 WBC (Bld) 1.1 % Normal [facility] Comment on above: Order Comment: Speci men Type: BLOOD SPECIMEN Ordering Facility: [facility] Address: [address] [place] [address] Performed By: #### 5 0190-8, 6-4 #### [facility] CLIA [id number] [address] [place] [address] [place] Automated basophil counton 0 12-29-2023 Basophils (Bld) [#/Vol] 0.08 10*3/uL Normal <0.11 [facility] Comment on above: Order Comment: Speci men Type: BLOOD SPECIMEN Ordering Facility: [facility] Address: [address] [place] [address] Performed By: #### 5 0190-8, 2275-4 #### [facility] CLIA [id number] [address] [place] [address] [place] Automated blood monocyte cou nton 12-29-2023 Monocytes (Bld) [#/Vol] 0.73 10*3/uL Normal <0.87 [facility] Comment on above: Order Comment: Speci men Type: BLOOD SPECIMEN Ordering Facility: [facility] Address: [address] [place] [address] Performed By: #### 5 0190-8, 2275-4 #### [facility] CLIA [id number] [address] [place] [address] [place] Automated eosinophil %on Eosinophils/100 WBC (Bld) 7.0 % Normal [facility] Comment on above: Order Comment: Speci men Type: BLOOD SPECIMEN Ordering Facility: [facility] Address: [address] [place] [address] Performed By: #### 5 0190-8, 2276-01 #### [facility] CLIA [id number] [address] [place] [address] [place] Automated monocyte %on 12-28 Monocytes/100 WBC (Bld) 10.2 % Normal [facility] Comment on above: Order Comment: Speci men Type: BLOOD SPECIMEN Ordering Facility: [facility] Address: [address] [place] [address] Performed By: #### 5 0190-8, 2276-01 #### [facility] CLIA [id number] [address] [place] [address] [place] Automated neutrophil %on Neutrophils/100 WBC (Bld) 55.6 % Normal [facility] Comment on above: Order Comment: Speci men Type: BLOOD SPECIMEN Ordering Facility: [facility] Address: [address] [place] [address] Performed By: #### 5 0190-8, 2276-01 #### [facility] CLIA [id number] [address] [place] [address] [place] Blood manual differential co mment interpretation narrativeon 12-29-2023 Manual differential comment Edwin (Bld) [Interp] Auto [facility] CBC W Auto Diff Bldon 2023 Eosinophils (Bld) [#/Vol] 0.50 10*3/uL High <0.46 [facility] Comment on above: Order Comment: Speci men Type: BLOOD SPECIMEN Ordering Facility: [facility] Address: [address] [place] [address] Performed By: #### 5 0190-8, 4 #### [facility] CLIA [id number] [address] [place] [address] [place] Immature granulocytes/100 WBC (Bld) 0.3 % Normal [facility] Comment on above: Order Comment: Speci men Type: BLOOD SPECIMEN Ordering Facility: [facility] Address: [address] [place] [address] Performed By: #### 5 0190-8, 2276-01 #### [facility] CLIA [id number] [address] [place] [address] [place] CBC W Auto Differential pane l (Bld)on 12-29-2023 Differential cell count method Nom (Bld) Auto Normal [facility] Comment on above: Order Comment: Speci men Type: BLOOD SPECIMEN Ordering Facility: [facility] Address: [address] [place] [address] Performed By: #### 5 0190-8, 2276-01 #### [facility] CLIA [id number] [address] [place] [address] [place] Immature granulocytes (Bld) [#/Vol] 10*3/uL Normal <0.10 [facility] Comment on above: Order Comment: Speci men Type: BLOOD SPECIMEN Ordering Facility: [facility] Address: [address] [place] [address] Performed By: #### 5 0190-8, 2276-01 #### [facility] CLIA [id number] [address] [place] [address] [place] Nucleated RBC/100 WBC (Bld) [Ratio] 0.0 /100 WBC Normal [facility] Comment on above: Order Comment: Speci men Type: BLOOD SPECIMEN Ordering Facility: [facility] Address: [address] [place] [address] Performed By: #### 5 0190-8, 2276-01 #### [facility] CLIA [id number] [address] [place] [address] [place] WBC (Bld) [#/Vol] 7.13 10*3/uL Normal 3.70-11.00 [facility] Comment on above: Order Comment: Speci men Type: BLOOD SPECIMEN Ordering Facility: [facility] Address: [address] [place] [address] Performed By: #### 5 0190-8, 2276-4 #### [facility] CLIA [id number] [address] [place] [address] [place] CNOVSPon 12-29-2023 CNOVSP Visit (SP) Office ([place]) EBEN ARENAS ([id number]) 1960 M Date Time Provider Department 12/29/23 3:00 PM MARGARITA TAYLOR HEMASA During your visit today, we recorded the following information about you: Temperature Pulse Respiration Blood pressure 97.6 degrees 72/minute 16/minute 147/89 Weight Height 126.6 kg 1.772 m Dinora Buitrago MA 12/29/2023 3:06 PM Addendum Patient thinks his Testosterone is low, he would like to discuss it with you. JASPAL Caraballo Mindy M, PA-C 12/29/2023 3:50 PM Signed PATIENT NAME: Eben Vicky Arenas CLINIC NO.: [id number] ATTENDING PHYSICIAN: Anselmo Mcpherson MD DATE OF [...] HISTORY Diagnosis Date Former smoker HLD (hyperlipidemia) [place] (hard of hearing) HTN (hypertension) Long-term use [...] - 11.00 (more content not included)... Normal [facility] Erythrocyte distribution wid th [Ratio] by Automated counton 12-29-2023 Erythrocyte distribution width (RBC) [Ratio] 13.7 % Normal 11.5-15.0 [facility] Comment on above: Order Comment: Speci men Type: BLOOD SPECIMEN Ordering Facility: [facility] Address: [address] [place] [address] Performed By: #### 5 0190-8, 6-4 #### [facility] CLIA [id number] [address] [place] [address] [place] Erythrocytes [#/volume] in B lood by Automated counton 12-29-2023 RBC (Bld) [#/Vol] 5.51 10*6/uL Normal 4.20-6.00 [facility] Comment on above: Order Comment: Speci men Type: BLOOD SPECIMEN Ordering Facility: [facility] Address: [address] [place] [address] Performed By: #### 5 0190-8, 6-4 #### [facility] CLIA [id number] [address] [place] [address] [place] Ferritin SerPl-mCncon 2023 Ferritin [Mass/Vol] 251.0 ng/mL Normal 30.3-565.7 [facility] Comment on above: Order Comment: Speci men Type: BLOOD SPECIMEN Ordering Facility: [facility] Address: [address] [place] [address] Performed By: #### 5 0190-8, 2275-4 #### [facility] CLIA [id number] [address] [place] [address] [place] Hematocrit [Volume Fraction] of Blood by Automated counton 12-29-2023 Hematocrit (Bld) [Volume fraction] 49.8 % Normal 39.0-51.0 [facility] Comment on above: Order Comment: Speci men Type: BLOOD SPECIMEN Ordering Facility: [facility] Address: [address] [place] [address] Performed By: #### 5 0190-8, 6-4 #### [facility] CLIA [id number] [address] [place] [address] [place] Hemoglobin [Mass/volume] in Bloodon 12-29-2023 Hemoglobin (Bld) [Mass/Vol] 17.5 g/dL High 13.0-17.0 [facility] Comment on above: Order Comment: Speci men Type: BLOOD SPECIMEN Ordering Facility: [facility] Address: [address] [place] [address] Performed By: #### 5 0190-8, 2275- #### [facility] CLIA [id number] [address] [place] [address] [place] Iron and Iron binding capaci ty panelon 12-29-2023 Iron/TIBC [Molar ratio] 50.2 % Normal 15.0-57.0 [facility] Comment on above: Order Comment: Speci men Type: BLOOD SPECIMEN Ordering Facility: [facility] Address: [address] [place] [address] Performed By: #### 5 0190-8, 2276-01 #### [facility] CLIA [id number] [address] [place] [address] [place] Iron binding capacity [Mass/ volume] in Serum or Plasmaon 12-29-2023 Iron binding capacity [Mass/Vol] 313 ug/dL Normal 232-386 [facility] Comment on above: Order Comment: Speci men Type: BLOOD SPECIMEN Ordering Facility: [facility] Address: [address] [place] [address] Performed By: #### 5 0190-8, 2276-01 #### [facility] CLIA [id number] [address] [place] [address] [place] Iron saturation [Mass Fracti on] in Serum or Plasmaon 12-29-2023 Iron saturation [Mass fraction] 50.2 % 15.0-57.0 [facility] Iron+TIBC Pnl SerPlon 2023 Iron [Mass/Vol] 157 ug/dL Normal 41-186 [facility] Comment on above: Order Comment: Speci men Type: BLOOD SPECIMEN Ordering Facility: [facility] Address: [address] [place] [address] Performed By: #### 5 0190-8, 2276-01 #### [facility] CLIA [id number] [address] [place] [address] [place] Leukocytes [#/volume] correc loreta for nucleated erythrocytes in Blood by Automated counon 12-29-2023 WBC corrected for nucl RBC Auto (Bld) [#/Vol] 7.13 k/uL 3.70-11.00 [facility] Lymphocytes [#/volume] in Bl ood by Automated counton 12-29-2023 Lymphocytes (Bld) [#/Vol] 1.84 10*3/uL Normal 1.00-4.00 [facility] Comment on above: Order Comment: Speci men Type: BLOOD SPECIMEN Ordering Facility: [facility] Address: [address] [place] [address] Performed By: #### 5 0190-8, 2276-4 #### [facility] CLIA [id number] [address] [place] [address] [place] Lymphocytes/100 leukocytes i n Blood by Automated counton 12-29-2023 Lymphocytes/100 WBC (Bld) 25.8 % Normal [facility] Comment on above: Order Comment: Speci men Type: BLOOD SPECIMEN Ordering Facility: [facility] Address: [address] [place] [address] Performed By: #### 5 0190-8, 6-4 #### [facility] CLIA [id number] [address] [place] [address] [place] MCH [Entitic mass] by Automa loreta counton 12-29-2023 MCH (RBC) [Entitic mass] 31.8 pg Normal 26.0-34.0 [facility] Comment on above: Order Comment: Speci men Type: BLOOD SPECIMEN Ordering Facility: [facility] Address: [address] [place] [address] Performed By: #### 5 0190-8, 2276-4 #### [facility] CLIA [id number] [address] [place] [address] [place] MCHC [Mass/volume] by Automa loreta counton 12-29-2023 MCHC (RBC) [Mass/Vol] 35.1 g/dL Normal 30.5-36.0 [facility] Comment on above: Order Comment: Speci men Type: BLOOD SPECIMEN Ordering Facility: [facility] Address: [address] [place] [address] Performed By: #### 5 0190-8, 2276-4 #### [facility] CLIA [id number] [address] [place] [address] [place] MCV [Entitic volume] by Auto mated counton 12-29-2023 MCV (RBC) [Entitic vol] 90.4 fL Normal 80.0-100.0 [facility] Comment on above: Order Comment: Speci men Type: BLOOD SPECIMEN Ordering Facility: [facility] Address: [address] [place] [address] Performed By: #### 5 0190-8, 6-4 #### [facility] CLIA [id number] [address] [place] [address] [place] Neutrophils [#/volume] in Bl ood by Automated counton 12-29-2023 Neutrophils (Bld) [#/Vol] 3.96 10*3/uL Normal 1.45-7.50 [facility] Comment on above: Order Comment: Speci men Type: BLOOD SPECIMEN Ordering Facility: [facility] Address: [address] [place] [address] Performed By: #### 5 0190-8, 6-4 #### [facility] CLIA [id number] [address] [place] [address] [place] No Panel Informationon 12-28 Immature Granulocyte # (Auto) <0.03 k/uL <0.10 [facility] Nucleated erythrocytes [#/vo lume] in Blood by Automated counton 12-29-2023 Nucleated RBC (Bld) [#/Vol] 10*3/uL Normal <0.01 [facility] Comment on above: Order Comment: Speci men Type: BLOOD SPECIMEN Ordering Facility: [facility] Address: [address] [place] [address] Performed By: #### 5 0190-8, 6-4 #### [facility] CLIA [id number] [address] [place] [address] [place] Nucleated erythrocytes [Pres ence] in Blood by Automated counton 12-29-2023 Nucleated RBC Auto Ql (Bld) 0.0 /100{WBC} [facility] Platelet mean volume [Entiti c volume] in Blood by Automated counton 12-29-2023 Platelet mean volume (Bld) [Entitic vol] 11.9 fL Normal 9.0-12.7 [facility] Comment on above: Order Comment: Speci men Type: BLOOD SPECIMEN Ordering Facility: [facility] Address: [address] [place] [address] Performed By: #### 5 0190-8, 2275-4 #### [facility] CLIA [id number] [address] [place] [address] [place] Platelets [#/volume] in Bloo d by Automated counton 12-29-2023 Platelets (Bld) [#/Vol] 177 10*3/uL Normal 150-400 [facility] Comment on above: Order Comment: Speci men Type: BLOOD SPECIMEN Ordering Facility: [facility] Address: [address] [place] [address] Performed By: #### 5 0190-8, 6-4 #### [facility] CLIA [id number] [address] [place] [address] [place] Office/Clinic Note-Physician on 12-15-2023 Office/Clinic Note-Physician [id number]# 1.00TIFF Normal [facility] Consent for Treatmenton Consent for Treatment [id number]#1 .00TIFF Normal [facility] Consultation Noteon 03-04-20 24 Consultation Note Patient: EBEN ARENAS Age: 63 [...] No chills. Eye: No recent visual problem. Ear/Nose/Mouth/Throat : No decreased hearing. Respiratory: No shortness of breath, No cough. Cardiovascular: No chest pain. Gastrointestinal: No nausea, No vomiting. Genitourinary: No dysuria, No hematuria. Hematology/Lymphatics : No bruising tendency, No bleeding tendency. Musculoskeletal: Back pain. Integumentary: No rash, No pruritus. Neurologic: Not alert and oriented X4, No numbness, No tingling. Psychiatric: No anxiety, No depression. Health Status Allergies: Allergic Reactions (Selected) Severity Not Documented Ativan- Fell over. Current medications: No qualifying data available Problem list: All Problems High iron content / SNOMED CT 470414499 / Confirmed Localized osteoarthritis of knees, bilateral / SNOMED CT 3426835920 / Confirmed Hypercholesteremia / SNOMED CT 16970022 / Confirmed Resolved: History of TIAs / SNOMED CT 3953024460 Resolved: Hypertension / SNOMED CT 4435142406 Histories Past Medical History: No active or resolved past medical history items have been selected or recorded. Family History: Bypass Mother COPD Father Alzheimer's disease Mother Procedure history: robot assisted Arthroplasty of knee (SNOMED CT 00606782) performed by Anupam Quesada DO on 08/05/2022 at 61 Years. Tibial osteotomy (SNOMED CT 216258048). Torn meniscus (SNOMED CT 507223147). Torn meniscus x2 (SNOMED CT 691297125). Radiofrequency ablation of medial branch of lumbar nerve using fluoroscopic guidance (SNOMED CT 2063946313). Social History Social & Psychosocial Habits Alcohol 07/18/2022 Use: Current Type: Liquor Frequency: Daily Comment: 1 shot at bedtime - 07/18/2022 08:10 - Christine Garibay RN Substance Abuse 07/18/2022 Risk Assessment: Denies Substance Abuse Tobacco 07/18/2022 Risk Assessment: Denies Tobacco Use . Physical Examination Vital Signs (last 24 hrs) Last Charted Heart Rate Peripheral 74 bpm (DEC 13 13:38) SBP H 144 mmHg (DEC 13 13:38) DBP 88 mmHg (DEC 13 13:38) Weight 122.72 kg (DEC 13 13:38) BMI 39.17 (DEC 13 13:38) General: Alert and oriented, No acute [...] Appropriate mood & affect. Integumentary: Warm, Dry, [place]. Review / Management Results review: No qualifying [...] previous conservative angelita (more content not included)... [facility] Comment on above: Result Comment: Elec tronically Signed By: Staci Kevin PA-C\.br\Date and Time Signed: 12/14/23 14:16 EST\.br\Electronically Co-Signed By: David Cao DO\.br\Date and Time Co-Signed: 12/16/23 09:25 EST HIPAA Forms Officeon 024 HIPAA Forms Office [id number]#1 .00TIFF [facility] Legal Correspondence Officeo n 12-14-2023 Legal Correspondence Office [id number]#1 .00TIFF [facility] Legal Correspondence Office [id number]#1 .00TIFF [facility] Office/Clinic Note-Physician on 12-14-2023 Office/Clinic Note-Physician [id number]#1 .00TIFF [facility] Patient Correspondenceon Patient Correspondence [id number]#1 .00TIFF [facility] Patient Correspondence [id number]#1 .00TIFF [facility] Patient Correspondence [id number]#1 .00TIFF Normal [facility] Patient Correspondence [id number]#1 .00TIFF Normal [facility] Patient Correspondence [id number]#1 .00TIFF Normal [facility] Patient History Officeon Patient History Office [id number]#1 .00TIFF Normal [facility] Laboratory Outside Office Co pyon 12-04-2023 Laboratory Outside Office Copy [id number] #1.00TIFF Normal [facility] Outside Records Officeon Outside Records Office [id number] #1.00TIFF Normal [facility] Outside Records Office [id number] #1.00TIFF Normal [facility] Radiology Outside Office Wildlife Officer yon 12-04-2023 Radiology Outside Office Copy [id number] #1.00TIFF Normal [facility] Referrals Officeon Referrals Office [id number] #1.00TIFF Normal [facility] Carbon dioxide, total [Moles /volume] in Serum or PlasmaOrdered By: Americo Rabago on 11-04-2023 CO2 [Moles/Vol] 26.6 mmol/L 21.0-31.0 [facility] Comment on above: Performed By: #### L YTES #### [address] Chloride [Moles/volume] in S giovanna or PlasmaOrdered By: Americo aRbago on 11-04-2023 Chloride [Moles/Vol] 108 mmol/L 98-107 [facility] Comment on above: Performed By: #### L YTES #### [place] [id number] [facility] ECG 12 lead ECGon 11-04-2023 ECG 12 lead ECG [facility] [place] [address] Electrocardiograph Report Signed Patient: Eben Arenas MR#: [id number] : 1960 Acct:[id number] Age/Sex: 63 / M ADM Date: 11/04/23 Loc: PO Room: Type: [facility] Attending Dr: Americo Rabago MD Ordering Provider: [...] ECG No previous ECGs available Confirmed by DIONNE JAVIER, AMANDEEP ([id number]) on 11/05/2023 10:23:59 AM Referred By: Americo Rabago Electronically Signed By:AMANDEEP TRUONG MD Transcribed By: MUS Signed By Amandeep Truong MD 0 11/05/23 1024 Normal [facility] ECG post procedureon 024 ECG post procedure [facility] [address] [place] [id number] Electrocardiograph Report Signed Patient: Eben Arenas MR#: [id number] : 1960 Acct:[id number] Age/Sex: 63 / M ADM Date: 11/04/23 Loc: PO Room: Type: [facility] Attending Dr: Americo Rabago MD Ordering Provider: [...] MD 0 11/05/23 1024 Normal [facility] Potassium [Moles/volume] in Serum or PlasmaOrdered By: Americo Rabago on 11-04-2023 Potassium [Moles/Vol] 3.8 mmol/L 3.5-5.1 [facility] Comment on above: Performed By: #### L YTES #### [facility] [address] [place] [address] Serum or plasma anion gap de terminationOrdered By: Americo Rabago on 11-04-2023 Anion gap [Moles/Vol] 9.2 mmol/L 6.0-15.0 [facility] Comment on above: Result Comment: PERF ORMED BY: [address] [place] [address] PATHOLOGIST [employer] ELEAZAR LINN M.D. Performed By: #### L YTES #### [facility] [address] Sodium [Moles/volume] in Ser um or PlasmaOrdered By: Americo Rabago on 11-04-2023 Sodium [Moles/Vol] 140 mmol/L 136-145 [facility] Comment on above: Performed By: #### L YTES #### [facility] [address] [place] [id number] [facility] ECG 12 Leadon 10-07-2023 Atrial flutter with 2-1 conduction and a ventricular response of 159 bpm Left axis deviation interventricular conduction delay Loss of inferior forces QTc 461 ms [facility] Work Phone: [facility] Work Phone: Culture, Throaton 09-26-2023 Culture, Throat ORDER#: [id number] ORDERED BY: BEATRIZ ROPER SOURCE: Throat Throat COLLECTED: 09/26/23 11:51 ANTIBIOTICS AT CHECO.: RECEIVED : 09/27/23 10:01 Culture, Throat FINAL 09/30/23 08:29 Cult,Throat: Oral yuki, negative for Group A Strep and other beta Cult,Throat: hemolytic streptococci Performed at [address] [address] ([phone] Normal [facility] Comment on above: Performed By: #### C XTHR #### [facility] [address] [place] [id number] XR Chest 2 Viewson 3 XR Chest 2 Views Exam Date/Time: 09/09/2023 14:45 EST Reason for Exam: M19.011 Report IMPRESSION: NO RADIOGRAPHIC EVIDENCE OF ACTIVE DISEASE IN THE CHEST. CLINICAL INFORMATION: M19.011 COMPARISON: JULY 18, 2022 FINDINGS: Two views [...] mGy = na DAP = na Normal [facility] Auto Diffon 09-09-2023 Basophils/100 WBC (Bld) 0.6 % Normal 0.0-2.0 [facility] Comment on above: Order Comment: Order Added by Discern Expert. Performed By: #### 2 802939, [id number], 5167350, 1333932 ####[facility] [address] [place] [address] Basophils/Leukocytes Auto (Bld) [Pure # fraction] 0.0 E9/L Normal 0.0-0.2 [facility] Comment on above: Order Comment: Order Added by Discern Expert. Performed By: #### 2 064953, 62833019, 7370614, 7947677 ####[address] [address] Eosinophils/100 WBC (Bld) 3.0 % Normal 0.0-8.0 [facility] Comment on above: Order Comment: Order Added by Discern Expert. Performed By: #### 2 686467, 73085033, 4037452, 1410272 ####[address] [address] Eosinophils/Leukocytes Auto (Bld) [Pure # fraction] 0.2 E9/L Normal 0.0-0.5 [facility] Comment on above: Order Comment: Order Added by Discern Expert. Performed By: #### 2 879214, 39514282, 6152831, 9961517 ####[address] [address] Lymphocytes/100 WBC (Bld) 21.2 % Normal 14.0-50.0 [facility] Comment on above: Order Comment: Order Added by Discern Expert. Performed By: #### 2 221452, 70093779, 9221866, 3592810 ####[address] [address] Lymphocytes/Leukocytes Auto (Bld) [Pure # fraction] 1.5 E9/L Normal 1.0-4.0 [facility] Comment on above: Order Comment: Order Added by Discern Expert. Performed By: #### 2 691944, 73339562, 7127972, 2737736 ####[address] [address] Monocytes/100 WBC (Bld) 13.2 % Normal 4.0-14.0 [facility] Comment on above: Order Comment: Order Added by Discern Expert. Performed By: #### 2 149310, 35608821, 4995283, 5366020 ####[facility] [address] [place] [address] Monocytes/Leukocytes Auto (Bld) [Pure # fraction] 1.0 E9/L Normal 0.2-1.0 [facility] Comment on above: Order Comment: Order Added by Discern Expert. Performed By: #### 2 548767, 28505813, 4435710, 1807719 ####[place] [address] [place] [address] Neutrophils/100 WBC (Bld) 62.0 % Normal 36.0-75.0 [facility] Comment on above: Order Comment: Order Added by Discern Expert. Performed By: #### 2 288685, 51955739, 5478066, 9679537 ####[place] [address] [place] [address] Neutrophils/Leukocytes Auto (Bld) [Pure # fraction] 4.5 E9/L Normal 2.0-7.5 [facility] Comment on above: Order Comment: Order Added by Discern Expert. Performed By: #### 2 359808, 31961300, 5284071, 8454232 ####[place] [address] [place] [address] BMPon 09-09-2023 Anion gap [Moles/Vol] 17 mmol/L High 6-16 [facility] Comment on above: Performed By: #### 2 187520, 78711745, 7510443, 2974019 ####[facility] [address] [place] [address] Calcium [Mass/Vol] 8.9 mg/dL Normal 8.9-11.1 [facility] Comment on above: Performed By: #### 2 043547, 52841538, 8350886, 0905766 ####[facility] [address] [place] [address] Chloride [Moles/Vol] 104 mmol/L Normal 101-111 [facility] Comment on above: Performed By: #### 2 264133, 74428694, 2029809, 6945857 ####[facility] [address] [place] [address] CO2 [Moles/Vol] 22 mmol/L Normal 21-31 [facility] Comment on above: Performed By: #### 2 898513, 35279197, 9866655, 3012124 ####[facility] [address] [place] [address] Creatinine [Mass/Vol] 1.1 mg/dL Normal 0.5-1.3 [facility] Comment on above: Performed By: #### 2 669421, 40040803, 9571683, 1459597 ####[facility] [address] [place] [address] Glucose [Mass/Vol] 85 mg/dL Normal 55-199 [facility] Comment on above: Result Comment: If t his glucose result represents a fasting glucose, interpretation should refer to the following reference range: 55-99 mg/dL Performed By: #### 2 814335, 74135867, 4767330, 4577175 ####[facility] [address] [place] [address] Potassium [Moles/Vol] 3.4 mmol/L Low 3.5-5.3 [facility] Comment on above: Performed By: #### 2 653398, 81201048, 0375296, 2465081 ####[facility] [address] [place] [address] Sodium [Moles/Vol] 140 mmol/L Normal 135-145 [facility] Comment on above: Performed By: #### 2 359875, 43275771, 1177648, 1900461 ####[facility] [address] [place] [address] Urea nitrogen [Mass/Vol] 12 mg/dL Normal 5-21 [facility] Comment on above: Performed By: #### 2 819515, 04102660, 6001475, 1568140 ####[facility] [address] [place] [address] Urea nitrogen/Creatinine [Mass ratio] 11 No Units Normal 10-20 [facility] Comment on above: Performed By: #### 2 445009, 65378262, 5160328, 3900718 ####[facility] [address] [place] [address] CBC w/ Auto Diffon 3 Erythrocyte distribution width (RBC) [Ratio] 14.4 % High 10.9-14.2 [facility] Comment on above: Performed By: #### 2 056509, 18781944, 3480432, 9661015 ####[address] [address] Hematocrit (Bld) [Volume fraction] 54.1 % High 37.7-49.0 [facility] Comment on above: Performed By: #### 2 716841, 73211035, 9327364, 6423841 ####[address] [address] Hemoglobin (Bld) [Mass/Vol] 17.9 g/dL High 13.5-17.5 [facility] Comment on above: Performed By: #### 2 779684, 83406110, 1917397, 6959852 ####[address] [address] MCH (RBC) [Entitic mass] 30.7 pg Normal 27.0-34.0 [facility] Comment on above: Performed By: #### 2 785372, 95933739, 7194339, 7121908 ####[address] [address] MCHC (RBC) [Mass/Vol] 33.1 g/dL Normal 31.4-36.0 [facility] Comment on above: Performed By: #### 2 638915, 80783772, 2976761, 7979577 ####[address] [address] MCV (RBC) [Entitic vol] 92.8 fL Normal 80.0-100.0 [facility] Comment on above: Performed By: #### 2 606024, 52943404, 5806991, 0404548 ####[facility] [address] [place] [address] Platelet mean volume (Bld) [Entitic vol] 10.6 fL Normal 6.4-10.8 [facility] Comment on above: Performed By: #### 2 471223, 75154354, 3017707, 6923656 ####[address] [address] Platelets (Bld) [#/Vol] 152.0 E9/L Normal 150.0-500.0 [facility] Comment on above: Performed By: #### 2 845767, 55821813, 9210109, 7852209 ####[address] [address] RBC (Bld) [#/Vol] 5.8 E12/L Normal 4.3-5.9 [facility] Comment on above: Performed By: #### 2 774986, 79694225, 2103247, 1007167 ####[address] [address] WBC corrected for nucl RBC Auto (Bld) [#/Vol] 7.2 E9/L Normal 4.0-11.0 [facility] Comment on above: Performed By: #### 2 099467, 27662158, 4469549, 6384915 ####[address] [address] CHEMISTRYOrdered By: SYSTEM SYSTEM on 09-09-2023 Anion gap [Moles/Vol] 17 mmol/L High 6 - 16 mEq/L [facility] Calcium [Mass/Vol] 8.9 mg/dL Normal 8.9 - 11. 1 mg/dL [facility] Chloride [Moles/Vol] 104 mmol/L Normal 101 - 1 11 mmol/L [facility] CO2 [Moles/Vol] 22 mmol/L Normal 21 - 31 mmol/L [facility] Creatinine [Mass/Vol] 1.1 mg/dL Normal 0.5 - 1.3 mg/dL [facility] Remisol GFR/1.73 sq M.predicted among non-blacks MDRD (S/P/Bld) [Vol rate/Area] 75 mL/min/1.73 m2 Normal >=59mL/min/1.7 3 m2 [facility] Chem S Comment on above: Interpretive Data: C hronic kidney disease could be indicated at eGFR's of less than 60 mL/min/1.73m2. Kidney failure is indicated at less than 15 mL/min/1.73m2. Glucose [Mass/Vol] 85 mg/dL Normal 55 - 199 mg/dL [facility] Remisol Comment on above: Interpretive Data: I f this glucose result represents a fasting glucose, interpretation should refer to the following reference range: 55-99 mg/dL Potassium [Moles/Vol] 3.4 mmol/L Low 3.5 - 5.3 mmol/L [facility] Remisol Sodium [Moles/Vol] 140 mmol/L Normal 135 - 145 mmol/L [facility] Remisol Urea nitrogen [Mass/Vol] 12 mg/dL Normal 5 - 21 mg/dL [facility] Remisol Urea nitrogen/Creatinine [Mass ratio] 11 mg/mg Normal 10 - 20 [facility] Remisol Consent for Treatmenton 08-13 Consent for Treatment [id number]#1 .00TIFF Normal [facility] HEMATOLOGYOrdered By: SYSTEM SYSTEM on 09-09-2023 Basophils/100 WBC (Bld) 0.6 % Normal 0.0 - 2.0 % [facility] Basophils/Leukocytes Auto (Bld) [Pure # fraction] 0.0 E9/L Normal 0.0 - 0.2 E9/L [facility] Eosinophils/100 WBC (Bld) 3.0 % Normal 0.0 - 8.0 % [facility] Eosinophils/Leukocytes Auto (Bld) [Pure # fraction] 0.2 E9/L Normal 0.0 - 0.5 E9/L [facility] Lymphocytes/100 WBC (Bld) 21.2 % Normal 14.0 - 50.0 % [facility] Lymphocytes/Leukocytes Auto (Bld) [Pure # fraction] [...] 4.5 E9/L Normal 2.0 - 7.5 E9/L [facility] HEMATOLOGYOrdered By: Yadira Marina on 09-09-2023 Erythrocyte distribution width (RBC) [Ratio] 14.4 % High 10.9 - 14.2 % [facility] Hematocrit (Bld) [Volume fraction] 54.1 % High 37.7 - 49.0 % [facility] Hemoglobin (Bld) [Mass/Vol] 17.9 g/dL High 13.5 - 17.5 gm/dL [facility] MCH (RBC) [Entitic mass] 30.7 pg Normal 27.0 - 34.0 pg [facility] MCHC (RBC) [Mass/Vol] 33.1 g/dL Normal 31.4 - 36.0 gm/dL [facility] MCV (RBC) [Entitic vol] 92.8 fL Normal 80.0 - 100.0 fL [facility] Platelet mean volume (Bld) [Entitic vol] 10.6 fL Normal 6.4 - 10.8 fL [facility] Platelets (Bld) [#/Vol] 152.0 E9/L Normal 150.0 - 500.0 E9/L [facility] RBC (Bld) [#/Vol] 5.8 E12/L Normal 4.3 - 5.9 E12/L [facility] WBC corrected for nucl RBC Auto (Bld) [#/Vol] 7.2 E9/L Normal 4.0 - 11.0 E9/L [facility] Physician Orderon 09-09-2023 Physician Order [id number]# 1.00TIFF Normal [facility] eGFRon 09-09-2023 GFR/1.73 sq M.predicted among non-blacks MDRD (S/P/Bld) [Vol rate/Area] 75 mL/min/1.73 m2 Normal >=59 [facility] Comment on above: Order Comment: Order added by Discern Expert. Result Comment: Private Secretary fernando kidney disease could be indicated at eGFR's of less than 60 mL/min/1.73m2. Kidney failure is indicated at less than 15 mL/min/1.73m2. Performed By: #### 2 731546, 86813984, 5267366, 1992236 ####[facility] [address] [place] [address] MRI Shoulder w/ + w/o Contra st [facility] 09-03-2023 MRI Shoulder w/ + w/o Contrast [...] curved. Coracoclavicular ligament intact. Small amount of subacromial/subdeltoi d bursal fluid. Full-thickness tear of distal supraspinatus [...] MultiHance Contrast amount in ml's: 20 Normal [facility] CHEMISTRYOrdered By: SYSTEM SYSTEM on 09-01-2023 Creatinine [Mass/Vol] 0.8 mg/dL Normal 0.5 - 1.3 mg/dL [facility] Remisol GFR/1.73 sq M.predicted among non-blacks MDRD (S/P/Bld) [Vol rate/Area] 99 mL/min/1.73 m2 Normal >=59mL/min/1.7 3 m2 [facility] Chem S Comment on above: Interpretive Data: C hronic kidney disease could be indicated at eGFR's of less than 60 mL/min/1.73m2. Kidney failure is indicated at less than 15 mL/min/1.73m2. Consent for Treatmenton 08-13 Consent for Treatment [id number]#1 .00TIFF Normal [facility] Creatinineon 09-01-2023 Creatinine [Mass/Vol] 0.8 mg/dL Normal 0.5-1.3 [facility] Comment on above: Performed By: #### 1 [id number], 1204787 #### [facility] [address] [place] [address] RAD - MRI Screening Formon 1 11-01-2022 RAD - MRI Screening Form [id number] #1.00TIFF Normal [facility] eGFRon 09-01-2023 GFR/1.73 sq M.predicted among non-blacks MDRD (S/P/Bld) [Vol rate/Area] 99 mL/min/1.73 m2 Normal >=59 [facility] Comment on above: Order Comment: Order added by Discern Expert. Result Comment: Private Secretary fernando kidney disease could be indicated at eGFR's of less than 60 mL/min/1.73m2. Kidney failure is indicated at less than 15 mL/min/1.73m2. Performed By: #### 1 [id number], 0482942 #### [facility] [address] [place] [address] Physician Orderon 08-31-2023 Physician Order [id number]#1 .00TIFF [facility] Physician Orderon 08-26-2023 Physician Order [id number]#1 .00TIFF [facility] CHEMISTRYOrdered By: SYSTEM SYSTEM on 03-10-2023 Albumin [Mass/Vol] 3.9 g/dL Normal 3.3 - 5.0 gm/dL [facility] Remisol Albumin/Globulin [Mass ratio] 1.3 {ratio} Normal 1.1 - 2.2 [facility] ALP [Catalytic activity/Vol] 66 [iU]/d Normal 21 - 98 Int._Unit/L [facility] ALT No additional P-5'-P [Catalytic activity/Vol] 45 [iU]/d Normal 6 - 46 Int._Unit/L [facility] Anion gap [Moles/Vol] 10 mmol/L Normal 6 - 16 mEq/L [facility] AST [Catalytic activity/Vol] 33 [iU]/d Normal 5 - 43 Int._Unit/L [facility] Bilirubin [Mass/Vol] 0.7 mg/dL Normal 0.0 [...] 68 mL/min/1.73 m2 Normal >=59mL/min/1.7 3 m2 [facility] Globulin (S) [Mass/Vol] 3.1 g/dL Normal 1.4 - 4.0 gm/dL [facility] Glucose [Mass/Vol] 119 mg/dL Normal 55 - 199 mg/dL [facility] Potassium [Moles/Vol] 3.4 mmol/L Low 3.5 [...] (Bld) [Mass fraction] 6.3 % High <=5.9% [facility] HEMATOLOGYOrdered By: SYSTEM SYSTEM on 03-10-2023 Basophils/100 WBC (Bld) 0.7 % Normal 0.0 - 2.0 % [facility] Basophils/Leukocytes Auto (Bld) [Pure # fraction] [...] 3.5 E9/L Normal 2.0 - 7.5 E9/L [facility] HEMATOLOGYOrdered By: Nury Mcarthur on 03-10-2023 Erythrocyte distribution width (RBC) [Ratio] 14.3 % High 10.9 - 14.2 % [facility] Hematocrit (Bld) [Volume fraction] 52.0 % High 37.7 - 49.0 % [facility] Hemoglobin (Bld) [Mass/Vol] 17.4 g/dL Normal 13.5 - 17.5 gm/dL [facility] MCH (RBC) [Entitic mass] 31.9 pg Normal 27.0 - 34.0 pg [facility] MCHC (RBC) [Mass/Vol] 33.4 g/dL Normal 31.4 - 36.0 gm/dL [facility] MCV (RBC) [Entitic vol] 95.8 fL Normal 80.0 - 100.0 fL [facility] Platelet mean volume (Bld) [Entitic vol] 10.8 fL Normal 6.4 - 10.8 fL [facility] Platelets (Bld) [#/Vol] 164.0 E9/L Normal 150.0 - 500.0 E9/L [facility] RBC (Bld) [#/Vol] 5.4 E12/L Normal 4.3 - 5.9 E12/L [facility] WBC corrected for nucl RBC Auto (Bld) [#/Vol] 6.3 E9/L Normal 4.0 - 11.0 E9/L [facility] Office Visit (Cardiology)on 12-30-2022 Follow-up visit [...] 3 TIMES DAILY NEEDED FOR MUSCLE SPASM. Lisinopril-hydroCHLOR Othiazide 20-12.5 MG Oral TabletTAKE 1 TABLET DAILY. [...] Recorded: 30Dec2022 11:58AM Heart Rate76, L Radial Kznngkzf364, LUE, Sitting Hrrutyryc57, LUE, Sitting Height5 ft 10 in Eiebul899 lb BMI Akibedfcoz23.46 kg/m2 BSA Calculated2.42 Tobacco Useb) No Physical [...] Dec 30 2022 5:52PM EST (Author) Normal [facility] Tobacco Screening.on 023 Tobacco use status CPHS b) No -[facility] [address] DO Work Phone: US [...] saphenous vein *Exam performed in accordance with [facility] practice guidelines- Peripheral venous ultrasound, January 05, 2010. Electronically authenticated by: ANUPAM MENDOZA Date: 2022-12-12 16:37 Normal [facility] Cardiovasc Arrhythmia Result son 11-10-2022 Cardiovasc Arrhythmia Results Reason For Visit Event Monitor: Holter monitor printed and placed on Dr. Americo Rabago MD desk to dictate. EBEN is here for the application of a 30 day event monitor in office., Diagnosis: palps, abn ekg Ordering Physician: Dr. Americo Rabago MD Enrollment sent to: [employer] Monitor number [id number] applied. Diagnosis/Problems Assessed Abnormal EKG (794.31) (R94.31) [...] episodes of malignant ventricular tachyarrhythmia. Future Appointments Date/TimeProviderSpec ialtySite 12/30/2022 11:30 Americo Fernando, ABEgqysluvsr949 [facility] [address] DO Signatures Electronically signed by : Americo Rabago MD; Nov 21 2022 9:39AM EST (Author) Normal [facility] Office Visit (Cardiology)on 11-05-2022 Follow-up visit Diagnoses/Problems [...] 3 TIMES DAILY NEEDED FOR MUSCLE SPASM. Lisinopril-hydroCHLOR Othiazide 20-12.5 MG Oral TabletTAKE 1 TABLET DAILY. [...] Signs Recorded: 05Nov2022 02:26PM Heart Rate84, Apical Bdvzdqpw650, RUE, Sitting Qxjdkdmcn76, RUE, Sitting Height5 ft 10 in Kwxrpt951 lb BMI Toejbmghtn00.32 kg/m2 BSA Calculated2.41 Tobacco Useb) No PHQ-2 [...] to aus (more content not included)... Normal [place] Tobacco Screening.on 023 Adult depression screening assessment No formerly [facility] [employer] [place] [address] DO Work Phone: Tobacco use status CPHS b) No formerly [facility] [employer] [place] [address] DO Work Phone: BLOOD BANKOrdered By: Ayala Whitt on 08-05-2022 ABO/Rh Interp Positive Invalid Interpretation Code [facility] BB Subsection ABSC Gel Interp Negative (08/05/22 6:31 AM) Normal [facility] BB Subsection CHEMISTRYOrdered By: SYSTEM SYSTEM on 08-05-2022 Potassium [Moles/Vol] 3.6 mmol/L Normal 3.5 - 5.3 mmol/L [facility] Remisol HEMATOLOGYOrdered By: Yadira Marina on 08-05-2022 Platelets (Bld) [#/Vol] 130.0 E9/L Low 150.0 - 500.0 E9/L [facility] BLOOD BANKOrdered By: Arlin Moreno on 07-18-2022 ABO/Rh Retype Interp Positive Invalid Interpretation Code [facility] BB Subsection CHEMISTRYOrdered By: SYSTEM SYSTEM on 07-18-2022 Anion gap [Moles/Vol] 10 mmol/L Normal 6 - 16 mEq/L [facility] Chloride [Moles/Vol] 100 mmol/L Low 101 - 1 11 mmol/L [facility] Remisol CO2 [Moles/Vol] 27 mmol/L Normal 21 - 31 mmol/L [facility] Remisol Creatinine [Mass/Vol] 1.0 mg/dL Normal 0.5 - 1.3 mg/dL [facility] Remisol GFR/1.73 sq M.predicted among blacks MDRD (S/P/Bld) [Vol rate/Area] mL/min/1.73 m2 Normal >=59mL/min/1.7 3 m2 [facility] Chem S GFR/1.73 sq M.predicted among non-blacks MDRD (S/P/Bld) [Vol rate/Area] mL/min/1.73 m2 Normal >=59mL/min/1.7 3 m2 [facility] Chem S Glucose [Mass/Vol] 124 mg/dL Normal 55 - 199 mg/dL [facility] Remisol Potassium [Moles/Vol] 3.2 mmol/L Low 3.5 - 5.3 mmol/L [facility] Remisol Sodium [Moles/Vol] 134 mmol/L Low 135 - 145 mmol/L [facility] Remisol Urea nitrogen [Mass/Vol] 8 mg/dL Normal 5 - 21 mg/dL [facility] Remisol HEMATOLOGYOrdered By: Sasha Kahn on 07-18-2022 Erythrocyte distribution width (RBC) [Ratio] 13.4 % Normal 10.9 - 14.2 % [facility] Hematocrit (Bld) [Volume fraction] 57.1 % High 37.7 - 49.0 % [facility] [place] [facility] Hemoglobin (Bld) [Mass/Vol] 19.4 g/dL High 13.5 - 17.5 gm/dL [facility] [place] [facility] [place] [facility] MCH (RBC) [Entitic mass] 32.5 pg Normal 27.0 - 34.0 pg [facility] [place] [facility] [place] [facility] MCHC (RBC) [Mass/Vol] 34.0 g/dL Normal 31.4 - 36.0 gm/dL [facility] MCV (RBC) [Entitic vol] 95.8 fL Normal 80.0 - 100.0 fL [facility] Platelet mean volume (Bld) [Entitic vol] 10.9 fL High 6.4 - 10.8 fL [facility] Platelets (Bld) [#/Vol] 117.0 E9/L Low 150.0 - 500.0 E9/L [facility] RBC (Bld) [#/Vol] 6.0 E12/L High 4.3 - 5.9 E12/L [facility] HemeAutoSS WBC corrected for nucl RBC Auto (Bld) [#/Vol] 6.2 E9/L Normal 4.0 - 11.0 E9/L [facility] HemeAutoSS URINALYSISOrdered By: Ayala Whitt on 07-18-2022 Bilirubin Ql (U) Negative (07/18/22 8:30 AM) Normal Negative [facility] UA Auto SS Clarity (U) Clear (07/18/22 [...] AM) Normal Negative [facility] UA Auto SS [place].plasma/[place] .RBC (Bld) [Mass ratio] 0-3 /HPF Normal 0-3/HPF [facility] UA Auto SS Nitrite Ql (U) Negative (07/18/22 8:30 AM) Normal Negative [facility] UA Auto SS pH (U) 6.0 *NA* (07/18/22 8:30 AM) Invalid Interpretation Code 5.0 - 9.0 [facility] UA Auto SS Protein (U) [Mass/Vol] Negative (07/18/22 8:30 AM) Normal Negative [facility] UA Auto SS Specific gravity (U) [Rel density] 1.020 *NA* (07/18/22 8:30 AM) Invalid Interpretation Code 1.005 - 1.030 [facility] [facility] [place] UA Auto SS UA Spec Desc Clean Catch (07/18/22 8:30 AM) Normal [facility] [place] UA Auto SS Urobilinogen Qn (U) [id number] {Duc'U}/dL Normal 0.0 - 1.0 EU/dL [facility] [place] UA Auto SS WBC Auto Ql (U) Negative (07/18/22 8:30 AM) Normal Negative [facility] [place] UA Auto SS WBC LM.HPF (Urine sed) [#/Area] 0-5 /HPF Normal 0-5/HPF [facility] [place] UA Auto SS XR Foot - bilateral AP and L ateral and obliqueon 06-04-2021 IMPRESSION: Chronic changes as described. There are no acute osseous abnormalities identified. It Security Engineer: MARVIN Transcribe Date/Time: Jun 04 2021 3:54P Dictated by : SUZIE ROBLEDO MD This examination was interpreted and the report reviewed and electronically signed by: SUZIE ROBLEDO MD on Jun 04 2021 3:56PM [facility] DIVISION OF RADIOLOGY * * *Final Report* * * DATE OF EXAM: Jun 04 2021 2:49PM NISREEN 5555 - XR FOOT 3V AP/LAT/OBL MAUREEN / PROCEDURE REASON: multiple diagnoses * * * * Physician Interpretation * * * * TECHNIQUE: Weightbearing right foot 3 views and weightbearing left foot 3 views CLINICAL DATA: Chronic right and left foot pain. COMPARISON: None. RESULT: There is no acute fracture or dislocation. The joint spaces demonstrate narrowing involving the first metatarsophalangeal joint space right greater than left. There are arthritic changes involving the mid tarsal bones on the right. There is bilateral plantar and dorsal calcaneal enthesopathy. DIVISION OF RADIOLOGY Provider, Teo Mosley - 06/04/2021 * * *Final Report* * * DATE OF EXAM: Jun 04 2021 2:49PM NISREEN 5555 - XR FOOT 3V AP/LAT/OBL MAUREEN / PROCEDURE REASON: multiple diagnoses * * * * Physician Interpretation * * * * TECHNIQUE: Weightbearing right foot 3 views and weightbearing left foot 3 views CLINICAL DATA: Chronic right and left foot pain. COMPARISON: None. RESULT: There is no acute fracture or dislocation. The joint spaces demonstrate narrowing involving the first metatarsophalangeal joint space right greater than left. There are arthritic changes involving the mid tarsal bones on the right. There is bilateral plantar and dorsal calcaneal enthesopathy. IMPRESSION IMPRESSION: Chronic changes as described. There are no acute osseous abnormalities identified. It Security Engineer: PSCB Transcribe Date/Time: Jun 04 2021 3:54P Dictated by : SUZIE ROBLEDO MD This examination was interpreted and the report reviewed and electronically signed by: SUZIE ROBLEDO MD on Jun 04 2021 3:56PM EST [facility] Radiology Study observation (narrative) [facility] XR Foot - bilateral AP and L ateral and obliqueOrdered By: Ccf Provider on 06-04-2021 [facility] Vital Signs Date Time Vital Sign Value Performing Clinician Facility 05-26-2025 10:10-0400 Body height 177.8 cm Zohaib Borja MD Work Phone: [facility] 05-26-2025 10:10-0400 Body mass index (BMI) [Ratio] 40.12 kg/m2 Zohaib Borja MD Work Phone: [facility] 05-26-2025 10:10-0400 Body weight 126.83 kg Zohaib Borja MD Work Phone: [facility] 05-26-2025 10:10-0400 Diastolic blood pressure 70 mm[Hg] Zohaib Borja MD Work Phone: [facility] 05-26-2025 10:10-0400 Heart rate 59 /min Zohaib Borja MD Work Phone: [facility] 05-26-2025 10:10-0400 Systolic blood pressure 130 mm[Hg] Zohaib Borja MD Work Phone: [facility] 05-08-2025 09:32-0400 Body height 175.26 cm Julia Mcdaniels MD Work Phone: [facility] 05-08-2025 09:32-0400 Body mass index (BMI) [Ratio] 42.7 kg/m2 Julia Mcdaniels MD Work Phone: [facility] 05-08-2025 09:32-0400 Body weight 131.08 kg Julia Mcdaniels MD Work Phone: [facility] 05-08-2025 09:32-0400 Diastolic blood pressure 75 mm[Hg] Julia Mcdaniels MD Work Phone: [facility] 05-08-2025 09:32-0400 Heart rate 65 /min Julia Mcdaniels MD Work Phone: [facility] 05-08-2025 09:32-0400 Systolic blood pressure 114 mm[Hg] Julia Mcdaniels MD Work Phone: [facility] 05-01-2025 10:30-0400 Body height 177.8 cm Anupam Pocos DO Work Phone: [facility] 05-01-2025 10:30-0400 Body mass index (BMI) [Ratio] 41.61 kg/m2 Anupam Pocos DO Work Phone: [facility] 05-01-2025 10:30-0400 Body weight 131.54 kg Anupam Pocos DO Work Phone: [facility] 04-07-2025 13:15-0400 Body height 175.26 cm Julia Mcdaniels MD Work Phone: [facility] 04-07-2025 13:15-0400 Body mass index (BMI) [Ratio] 40.4 kg/m2 Julia Mcdaniels MD Work Phone: [facility] 04-07-2025 13:15-0400 Body weight 124.05 kg Julia Mcdaniels MD Work Phone: [facility] 04-07-2025 13:15-0400 Diastolic blood pressure 72 mm[Hg] Julia Mcdaniels MD Work Phone: [facility] 04-07-2025 13:15-0400 Heart rate 70 /min Julia Mcdaniels MD Work Phone: [facility] 04-07-2025 13:15-0400 Respiratory rate 14 /min Julia Mcdaniels MD Work Phone: [facility] 04-07-2025 13:15-0400 SaO2% (BldA) [Mass fraction] 99 % Julia Mcdaniels MD Work Phone: [facility] 04-07-2025 13:15-0400 Systolic blood pressure 112 mm[Hg] Julia Mcdaniels MD Work Phone: [facility] 02-27-2025 09:29-0400 Body height 177.8 cm Anupam Pocos DO Work Phone: [facility] 02-27-2025 09:29-0400 Body mass index (BMI) [Ratio] 41.61 kg/m2 Anupam Pocos DO Work Phone: [facility] 02-27-2025 09:29-0400 Body weight 131.54 kg Anupam Pocos DO Work Phone: [facility] 02-11-2025 09:27-0400 Body height 177.8 cm Ac Newbill PA-C Work Phone: [facility] 02-11-2025 09:27-0400 Body mass index (BMI) [Ratio] 41.32 kg/m2 Ac Newbill PA-C Work Phone: [facility] 02-11-2025 09:27-0400 Body temperature 98.4 [degF] Ac Newbill PA-C Work Phone: [facility] 02-11-2025 09:27-0400 Body weight 130.64 kg Ac Newbill PA-C Work Phone: [facility] 02-11-2025 09:27-0400 Diastolic blood pressure 86 mm[Hg] Ac Newbill PA-C Work Phone: [facility] 02-11-2025 09:27-0400 Heart rate 88 /min Ac Newbill PA-C Work Phone: [facility] 02-11-2025 09:27-0400 Respiratory rate 18 /min Ac Newbill PA-C Work Phone: [facility] 02-11-2025 09:27-0400 SaO2% (BldA) [Mass fraction] 94 % Ac Newbill PA-C Work Phone: [facility] 02-11-2025 09:27-0400 Systolic blood pressure 132 mm[Hg] Ac Newbill PA-C Work Phone: [facility] 01-31-2025 14:50-0400 Blood Pressure Location Anupam Pocos [facility] 01-31-2025 14:50-0400 Diastolic blood pressure 84 mm[Hg] Anupam Pocos [facility] 01-31-2025 14:50-0400 Heart rate 78 /min Anupam Pocos [facility] 01-31-2025 14:50-0400 Mean blood pressure 103 mm[Hg] Anupam Pocos [facility] 01-31-2025 14:50-0400 Respiratory rate 16 /min Anupam Pocos [facility] 01-31-2025 14:50-0400 SaO2% (BldA) [Mass fraction] 95 % Anupam Pocos [facility] 01-31-2025 14:50-0400 Systolic blood pressure 142 mm[Hg] Anupam Pocos [facility] 01-31-2025 12:54-0400 Heart rate 71 /min Anupam Pocos [facility] 01-31-2025 12:54-0400 SaO2% (BldA) [Mass fraction] 95 % Anupam Pocos [facility] 01-31-2025 12:54-0400 Blood Pressure Location Anupam Pocos [facility] 01-31-2025 12:54-0400 Diastolic blood pressure 71 mm[Hg] Anupam Pocos [facility] 01-31-2025 12:54-0400 Mean blood pressure 97 mm[Hg] Anupam Pocos [facility] 01-31-2025 12:54-0400 Systolic blood pressure 150 mm[Hg] Anupam Pocos [facility] 01-31-2025 12:51-0400 Respiratory rate 16 /min Anupam Pocos [facility] 01-31-2025 11:22-0400 Heart rate 72 /min Anupam Pocos [facility] 01-31-2025 11:22-0400 SaO2% (BldA) [Mass fraction] 94 % Anupam Pocos [facility] 01-31-2025 11:20-0400 Diastolic blood pressure 64 mm[Hg] Anupam Pocos [facility] 01-31-2025 11:20-0400 Mean blood pressure 75 mm[Hg] Anupam Pocos [facility] 01-31-2025 11:20-0400 Systolic blood pressure 98 mm[Hg] Anupam Pocos [facility] 01-31-2025 11:19-0400 Respiratory rate 18 /min Anupam Pocos [facility] 01-31-2025 11:10-0400 Heart rate 72 /min Anupam Pocos [facility] 01-31-2025 11:10-0400 Respiratory rate 16 /min Anupam Pocos [facility] 01-31-2025 11:10-0400 Body temperature 98.06 [degF] Anupam Pocos [facility] 01-31-2025 11:10-0400 Mean blood pressure 75 mm[Hg] Anupam Pocos [facility] 01-31-2025 11:00-0400 Respiratory rate 14 /min Anupam Pocos [facility] 01-31-2025 10:55-0400 Respiratory rate 14 /min Anupam Pocos [facility] 01-31-2025 10:45-0400 Body temperature 97.7 [degF] Anupam Pocos [facility] 01-31-2025 06:56-0400 Mean blood pressure 97 mm[Hg] Anupam Pocos [facility] 01-31-2025 06:56-0400 Heart rate 82 /min Anupam Pocos [facility] 01-31-2025 06:55-0400 Blood Pressure Location Anupam Pocos [facility] 01-31-2025 06:54-0400 Body temperature 97.52 [degF] Anupam Pocos [facility] 01-12-2025 13:45-0400 Diastolic blood pressure 85 mm[Hg] Anupam Pocos [facility] 01-12-2025 13:45-0400 Heart rate 55 /min Anupam Pocos [facility] 01-12-2025 13:45-0400 Mean blood pressure 103 mm[Hg] Anupam Pocos [facility] 01-12-2025 13:45-0400 Systolic blood pressure 138 mm[Hg] Anupam Pocos [facility] 01-12-2025 13:43-0400 Heart rate 55 /min Anupam Aramisos [facility] 01-12-2025 13:43-0400 SaO2% (BldA) [Mass fraction] 97 % Anupam Pocos [facility] 01-12-2025 13:43-0400 Diastolic blood pressure 84 mm[Hg] Anupam Pocos [facility] 01-12-2025 13:43-0400 Mean blood pressure 97 mm[Hg] Anupam Pocos [facility] 01-12-2025 13:43-0400 Systolic blood pressure 123 mm[Hg] Anupam Selfos [facility] 01-05-2025 14:24-0400 Body height 177.8 cm Maribeth Phipps MD Work Phone: [facility] 01-05-2025 14:24-0400 Body mass index (BMI) [Ratio] 41.32 kg/m2 Maribeth Phipps MD Work Phone: [facility] 01-05-2025 14:24-0400 Body weight 130.64 kg Maribeth Phipps MD Work Phone: [facility] 01-05-2025 14:24-0400 Diastolic blood pressure 68 mm[Hg] Maribeth Phipps MD Work Phone: [facility] 01-05-2025 14:24-0400 Heart rate 56 /min Maribeth Phipps MD Work Phone: [facility] 01-05-2025 14:24-0400 Systolic blood pressure 118 mm[Hg] Maribeth Phipps MD Work Phone: [facility] 01-04-2025 09:50-0400 Body height 177.8 cm Anupam Quesada DO Work Phone: [facility] 01-04-2025 09:50-0400 Body mass index (BMI) [Ratio] 41.61 kg/m2 Anupam Quesada DO Work Phone: [facility] 01-04-2025 09:50-0400 Body weight 131.54 kg Anupam Pocos DO Work Phone: [facility] 11-09-2024 13:32-0500 Body height 177.8 cm Anupam Pocos DO Work Phone: [facility] 11-09-2024 13:32-0500 Body mass index (BMI) [Ratio] 40.46 kg/m2 Anupam Pocos DO Work Phone: [facility] 11-09-2024 13:32-0500 Body weight 127.91 kg Anupam Pocos DO Work Phone: [facility] 10-26-2024 10:09-0500 Body height 177.8 cm Anupam Pocos DO Work Phone: [facility] 10-26-2024 10:09-0500 Body mass index (BMI) [Ratio] 40.46 kg/m2 Anupam Pocos DO Work Phone: [facility] 10-26-2024 10:09-0500 Body weight 127.91 kg Anupam Pocos DO Work Phone: [facility] 10-25-2024 13:53-0500 Diastolic blood pressure 85 mm[Hg] Treatment Rej Work Phone: [facility] 10-25-2024 13:53-0500 Heart rate 62 /min Treatment Rej Work Phone: [facility] 10-25-2024 13:53-0500 Systolic blood pressure 136 mm[Hg] Treatment Rej Work Phone: [facility] 10-25-2024 13:12-0500 Body mass index (BMI) [Ratio] 41.58 kg/m2 Mackenzie Hopson APRN.DIRECTOR OF ASSESSING Work Phone: [facility] 10-25-2024 13:12-0500 Body temperature 97.7 [degF] Mackenzie Hopson APRN.DIRECTOR OF ASSESSING Work Phone: [facility] 10-25-2024 13:12-0500 Body weight 130.55 kg Mackenzie Guzmanrinides HOME OFFICE REPRESENTATIVE.DIRECTOR OF ASSESSING Work Phone: [facility] 10-25-2024 13:12-0500 Diastolic blood pressure 75 mm[Hg] Mackenzie Thomasrinides HOME OFFICE REPRESENTATIVE.DIRECTOR OF ASSESSING Work Phone: [facility] 10-25-2024 13:12-0500 Heart rate 60 /min Mackenzie Guzmanrinides HOME OFFICE REPRESENTATIVE.DIRECTOR OF ASSESSING Work Phone: [facility] 10-25-2024 13:12-0500 SaO2% (BldA) [Mass fraction] 95 % Mackenziejaspal Guzmanrinides HOME OFFICE REPRESENTATIVE.DIRECTOR OF ASSESSING Work Phone: [facility] 10-25-2024 13:12-0500 Systolic blood pressure 143 mm[Hg] Mackenzie Guzmanrinides HOME OFFICE REPRESENTATIVE.DIRECTOR OF ASSESSING Work Phone: [facility] 10-24-2024 13:07-0500 Body height 175.26 cm [facility] 10-24-2024 13:07-0500 Body mass index (BMI) [Ratio] 42.5 kg/m2 [facility] 10-24-2024 13:07-0500 Body weight 130.63 kg [facility] 10-24-2024 13:07-0500 Diastolic blood pressure 78 mm[Hg] [facility] 10-24-2024 13:07-0500 Heart rate 60 /min [facility] 10-24-2024 13:07-0500 Systolic blood pressure 127 mm[Hg] [facility] 10-19-2024 14:20-0500 Body temperature 97.88 [degF] Sarabjit Moore [facility] 10-19-2024 14:20-0500 Diastolic blood pressure 86 mm[Hg] Sarabjit Moore [facility] 10-19-2024 14:20-0500 Heart rate 68 /min Sarabjit Moore [facility] 10-19-2024 14:20-0500 Respiratory rate 18 /min Sarabjit Moore [facility] 10-19-2024 14:20-0500 SaO2% (BldA) [Mass fraction] 96 % Sarabjit Moore [facility] 10-19-2024 14:20-0500 Systolic blood pressure 167 mm[Hg] Sarabjit Moore [facility] 09-14-2024 12:23-0500 Body height 177.8 cm Maribeth Phipps MD Work Phone: [facility] 09-14-2024 12:23-0500 Body mass index (BMI) [Ratio] 42.18 kg/m2 Maribeth Phipps MD Work Phone: [facility] 09-14-2024 12:23-0500 Body weight 133.36 kg Maribeth Phipps MD Work Phone: [facility] 09-14-2024 12:23-0500 Diastolic blood pressure 68 mm[Hg] Maribeth Phipps MD Work Phone: [facility] 09-14-2024 12:23-0500 Heart rate 65 /min Maribeth Phipps MD Work Phone: [facility] 09-14-2024 12:23-0500 Systolic blood pressure 128 mm[Hg] Maribeth Phipps MD Work Phone: [facility] 08-03-2024 13:17-0400 Body height 177.8 cm Anupam Quesada DO Work Phone: [facility] 08-03-2024 13:17-0400 Body mass index (BMI) [Ratio] 40.46 kg/m2 Anupam Quesada DO Work Phone: [facility] 08-03-2024 13:17-0400 Body weight 127.91 kg Anupam Quesada DO Work Phone: [facility] 07-25-2024 11:19-0400 Diastolic blood pressure 74 mm[Hg] Staci Kevin [facility] 07-25-2024 11:19-0400 Heart rate 60 /min Staci Kevin [facility] 07-25-2024 11:19-0400 Mean blood pressure 94 mm[Hg] Staci Kevin [facility] 07-25-2024 11:19-0400 Respiratory rate 15 /min Staci Kevin [facility] 07-25-2024 11:19-0400 Systolic blood pressure 134 mm[Hg] Staci Kevin [facility] 07-11-2024 09:22-0400 Heart rate 53 /min David Cao [facility] 07-11-2024 09:22-0400 SaO2% (BldA) [Mass fraction] 96 % David Cao [facility] 07-11-2024 09:22-0400 Diastolic blood pressure 70 mm[Hg] David Cao [facility] 07-11-2024 09:22-0400 Mean blood pressure 85 mm[Hg] David Cao [facility] 07-11-2024 09:22-0400 Systolic blood pressure 117 mm[Hg] David Cao [facility] 07-11-2024 09:22-0400 Respiratory rate 16 /min David Cao [facility] 07-11-2024 09:16-0400 Diastolic blood pressure 85 mm[Hg] David Cao [facility] 07-11-2024 09:16-0400 Heart rate 58 /min David Cao [facility] 07-11-2024 09:16-0400 Respiratory rate 14 /min David Cao [facility] 07-11-2024 09:16-0400 SaO2% (BldA) [Mass fraction] 97 % David Cao [facility] 07-11-2024 09:16-0400 Systolic blood pressure 100 mm[Hg] David Cao [facility] 07-11-2024 08:08-0400 Heart rate 52 /min David Cao [facility] 07-11-2024 08:08-0400 SaO2% (BldA) [Mass fraction] 96 % David Cao [facility] 07-11-2024 08:08-0400 Diastolic blood pressure 71 mm[Hg] David Cao [facility] 07-11-2024 08:08-0400 Mean blood pressure 87 mm[Hg] David Cao [facility] 07-11-2024 08:08-0400 Systolic blood pressure 121 mm[Hg] David Cao [facility] 07-11-2024 08:07-0400 Body temperature 98.06 [degF] David Cao [facility] 07-11-2024 08:04-0400 Respiratory rate 18 /min David Cao [facility] 07-07-2024 14:51-0400 Diastolic blood pressure 77 mm[Hg] Treatment Rej Work Phone: [facility] 07-07-2024 14:51-0400 Heart rate 65 /min Treatment Rej Work Phone: [facility] 07-07-2024 14:51-0400 Systolic blood pressure 115 mm[Hg] Treatment Rej Work Phone: [facility] 07-07-2024 14:05-0400 Body temperature 96.91 [degF] Treatment Rej Work Phone: [facility] 07-07-2024 14:05-0400 Respiratory rate 18 /min Treatment Rej Work Phone: [facility] 06-24-2024 14:25-0400 Diastolic blood pressure 72 mm[Hg] Treatment Rej Work Phone: [facility] 06-24-2024 14:25-0400 Heart rate 54 /min Treatment Rej Work Phone: [facility] 06-24-2024 14:25-0400 Respiratory rate 18 /min Treatment Rej Work Phone: [facility] 06-24-2024 14:25-0400 Systolic blood pressure 111 mm[Hg] Treatment Rej Work Phone: [facility] 06-24-2024 13:10-0400 Body height 177.2 cm Anselmo Mcpherson MD Work Phone: [facility] 06-24-2024 13:10-0400 Body mass index (BMI) [Ratio] 41.46 kg/m2 Anselmo Mcpherson MD Work Phone: [facility] 06-24-2024 13:10-0400 Body temperature 97.59 [degF] Anselmo Mcpherson MD Work Phone: [facility] 06-24-2024 13:10-0400 Body weight 130.2 kg Anselmo Mcpherson MD Work Phone: [facility] 06-24-2024 13:10-0400 Diastolic blood pressure 77 mm[Hg] Anselmo Mcpherson MD Work Phone: [facility] 06-24-2024 13:10-0400 Heart rate 52 /min Anselmo Mcpherson MD Work Phone: [facility] 06-24-2024 13:10-0400 Respiratory rate 18 /min Anselmo Mcpherson MD Work Phone: [facility] 06-24-2024 13:10-0400 SaO2% (BldA) [Mass fraction] 95 % Anselmo Mcpherson MD Work Phone: [facility] 06-24-2024 13:10-0400 Systolic blood pressure 124 mm[Hg] Anselmo Mcpherson MD Work Phone: [facility] 06-10-2024 14:17-0400 Diastolic blood pressure 70 mm[Hg] Staci Kevin [facility] 06-10-2024 14:17-0400 Heart rate 57 /min Staci Kevin [facility] 06-10-2024 14:17-0400 Mean blood pressure 85 mm[Hg] Staci Kevin [facility] 06-10-2024 14:17-0400 Respiratory rate 20 /min Staci Kevin [facility] 06-10-2024 14:17-0400 Systolic blood pressure 115 mm[Hg] Staci Kevin [facility] 04-29-2024 09:03-0400 Diastolic blood pressure 85 mm[Hg] Staci Kevin [facility] 04-29-2024 09:03-0400 Heart rate 64 /min Staci Clipik [facility] 04-29-2024 09:03-0400 Mean blood pressure 99 mm[Hg] Staci Clipik [facility] 04-29-2024 09:03-0400 Systolic blood pressure 128 mm[Hg] Staci Clipik [facility] 04-21-2024 08:35-0400 Body height 177.8 cm Sukumar Brewer MD Work Phone: [facility] 04-21-2024 08:35-0400 Body mass index (BMI) [Ratio] 41.09 kg/m2 Sukumar Brewer MD Work Phone: [facility] 04-21-2024 08:35-0400 Body weight 129.91 kg Sukumar Brewer MD Work Phone: [facility] 04-21-2024 08:35-0400 Diastolic blood pressure 82 mm[Hg] Sukumar Brewer MD Work Phone: [facility] 04-21-2024 08:35-0400 Heart rate 61 /min Sukumar Brewer MD Work Phone: [facility] 04-21-2024 08:35-0400 SaO2% (BldA) [Mass fraction] 97 % Sukumar Brewer MD Work Phone: [facility] 04-21-2024 08:35-0400 Systolic blood pressure 129 mm[Hg] Sukumar Brewer MD Work Phone: [facility] 03-29-2024 10:39-0400 Heart rate 75 /min David Cao [facility] 03-29-2024 10:39-0400 SaO2% (BldA) [Mass fraction] 96 % David Cao [facility] 03-29-2024 10:39-0400 Respiratory rate 16 /min David Cao [facility] 03-29-2024 10:38-0400 Diastolic blood pressure 84 mm[Hg] David Cao [facility] 03-29-2024 10:38-0400 Mean blood pressure 110 mm[Hg] David Cao [facility] 03-29-2024 10:38-0400 Systolic blood pressure 161 mm[Hg] David Cao [facility] 03-29-2024 10:17-0400 Diastolic blood pressure 98 mm[Hg] David Cao [facility] 03-29-2024 10:17-0400 Heart rate 78 /min David Cao [facility] 03-29-2024 10:17-0400 SaO2% (BldA) [Mass fraction] 98 % David Cao [facility] 03-29-2024 10:17-0400 Systolic blood pressure 135 mm[Hg] David Cao [facility] 03-29-2024 09:07-0400 Heart rate 70 /min David Cao [facility] 03-29-2024 09:07-0400 SaO2% (BldA) [Mass fraction] 96 % David Cao [facility] 03-29-2024 09:04-0400 Diastolic blood pressure 87 mm[Hg] David Cao [facility] 03-29-2024 09:04-0400 Mean blood pressure 101 mm[Hg] David Cao [facility] 03-29-2024 09:04-0400 Systolic blood pressure 127 mm[Hg] David Cao [facility] 03-29-2024 09:04-0400 Body temperature 98.06 [degF] David Cao [facility] 03-29-2024 09:04-0400 Respiratory rate 16 /min David Cao [facility] 03-22-2024 13:28-0400 Body height 177.2 cm Anselmo Mcpherson MD Work Phone: [facility] 03-22-2024 13:28-0400 Body mass index (BMI) [Ratio] 41.4 kg/m2 Anselmo Mcpherson MD Work Phone: [facility] 03-22-2024 13:28-0400 Body temperature 97.11 [degF] Anselmo Mcpherson MD Work Phone: [facility] 03-22-2024 13:28-0400 Body weight 130 kg Anselmo Mcpherson MD Work Phone: [facility] 03-22-2024 13:28-0400 Diastolic blood pressure 70 mm[Hg] Anselmo Mcpherson MD Work Phone: [facility] 03-22-2024 13:28-0400 Heart rate 78 /min Anselmo Mcpherson MD Work Phone: [facility] 03-22-2024 13:28-0400 Respiratory rate 18 /min Anselmo Mcpherson MD Work Phone: [facility] [facility] 03-22-2024 13:28-0400 SaO2% (BldA) [Mass fraction] 94 % Anselmo Mcpherson MD Work Phone: [facility] 03-22-2024 13:28-0400 Systolic blood pressure 123 mm[Hg] Anselmo Mcpherson MD Work Phone: [facility] 02-17-2024 11:19-0400 Body height 175.26 cm [facility] 02-17-2024 11:19-0400 Body mass index (BMI) [Ratio] 41.5 kg/m2 [facility] 02-17-2024 11:19-0400 Body weight 127.45 kg [facility] 02-17-2024 11:19-0400 Diastolic blood pressure 79 mm[Hg] [facility] 02-17-2024 11:19-0400 Heart rate 61 /min [facility] 02-17-2024 11:19-0400 Systolic blood pressure 118 mm[Hg] [facility] 02-12-2024 14:12-0400 Diastolic blood pressure 81 mm[Hg] Staci Kevin [facility] 02-12-2024 14:12-0400 Heart rate 73 /min Staci Kevin [facility] 02-12-2024 14:12-0400 Mean blood pressure 97 mm[Hg] Staci Kevin [facility] 02-12-2024 14:12-0400 Respiratory rate 14 /min Staci Kevin [facility] 02-12-2024 14:12-0400 Systolic blood pressure 129 mm[Hg] Staci Kevin [facility] 02-04-2024 15:01-0400 Heart rate 54 /min Ruben NILL [facility] 02-04-2024 15:01-0400 SaO2% (BldA) [Mass fraction] 96 % Ruben NILL [facility] 02-04-2024 15:01-0400 Diastolic blood pressure 82 mm[Hg] Ruben NILL [facility] 02-04-2024 15:01-0400 Mean blood pressure 97 mm[Hg] Ruben NILL [facility] 02-04-2024 15:01-0400 Systolic blood pressure 125 mm[Hg] Ruben NILL [facility] 02-04-2024 15:01-0400 Respiratory rate 18 /min Ruben NILL [facility] 02-04-2024 14:45-0400 Diastolic blood pressure 60 mm[Hg] Ruben NILL [facility] 02-04-2024 14:45-0400 Heart rate 71 /min Ruben NILL [facility] 02-04-2024 14:45-0400 SaO2% (BldA) [Mass fraction] 96 % Ruben NILL [facility] 02-04-2024 14:45-0400 Systolic blood pressure 129 mm[Hg] Ruben NILL [facility] 02-04-2024 14:42-0400 Diastolic blood pressure 84 mm[Hg] Ruben NILL [facility] 02-04-2024 14:42-0400 Heart rate 67 /min Ruben NILL [facility] 02-04-2024 14:42-0400 SaO2% (BldA) [Mass fraction] 95 % Ruben NILL [facility] 02-04-2024 14:42-0400 Systolic blood pressure 125 mm[Hg] Ruben NILL [facility] 02-04-2024 12:20-0400 Body temperature 97.52 [degF] Ruben NILL [facility] 02-04-2024 12:20-0400 Blood Pressure Location Ruben NILL [facility] 02-04-2024 12:20-0400 Mean blood pressure 97 mm[Hg] Ruben NILL [facility] 02-04-2024 12:20-0400 Respiratory rate 20 /min Ruben NILL [facility] 01-28-2024 12:44-0400 Blood Pressure Location Ruben NILL [facility] [place] 01-28-2024 12:44-0400 Diastolic blood pressure 81 mm[Hg] Ruben NILL [facility] [place] 01-28-2024 12:44-0400 Heart rate 68 /min Ruben NILL [facility] [place] 01-28-2024 12:44-0400 Respiratory rate 16 /min Ruben NILL [facility] [place] 01-28-2024 12:44-0400 Systolic blood pressure 142 mm[Hg] Ruben NILL [facility] [place] 01-27-2024 14:53-0400 Heart rate 67 /min David Cao [facility] 01-27-2024 14:53-0400 SaO2% (BldA) [Mass fraction] 96 % David Cao [facility] 01-27-2024 14:53-0400 Diastolic blood pressure 76 mm[Hg] David Cao [facility] 01-27-2024 14:53-0400 Mean blood pressure 92 mm[Hg] David Cao [facility] 01-27-2024 14:53-0400 Systolic blood pressure 124 mm[Hg] David Cao [facility] 01-27-2024 14:45-0400 Diastolic blood pressure 94 mm[Hg] David Cao [facility] 01-27-2024 14:45-0400 Heart rate 73 /min David Cao [facility] 01-27-2024 14:45-0400 Respiratory rate 16 /min David Cao [facility] 01-27-2024 14:45-0400 SaO2% (BldA) [Mass fraction] 98 % David Cao [facility] 01-27-2024 14:45-0400 Systolic blood pressure 147 mm[Hg] David Cao [facility] 01-27-2024 13:50-0400 Heart rate 64 /min David Cao [facility] 01-27-2024 13:50-0400 SaO2% (BldA) [Mass fraction] 95 % David Nash [facility] 01-27-2024 13:50-0400 Body temperature 97.7 [degF] Hernandez Nash [facility] 01-27-2024 13:49-0400 Diastolic blood pressure 74 mm[Hg] David Nash [facility] 01-27-2024 13:49-0400 Mean blood pressure 86 mm[Hg] David Cao [facility] 01-27-2024 13:49-0400 Systolic blood pressure 109 mm[Hg] David Cao [facility] 01-27-2024 13:49-0400 Respiratory rate 20 /min David Cao [facility] 01-21-2024 08:57-0400 Body height 177.8 cm Sukumar Brewer MD Work Phone: [facility] 01-21-2024 08:57-0400 Body mass index (BMI) [Ratio] 40.09 kg/m2 Sukumar Brewer MD Work Phone: [facility] 01-21-2024 08:57-0400 Body weight 126.73 kg Sukumar Brewer MD Work Phone: [facility] 01-21-2024 08:57-0400 Diastolic blood pressure 85 mm[Hg] Sukumar Brewer MD Work Phone: [facility] 01-21-2024 08:57-0400 Heart rate 70 /min Sukumar Brewer MD Work Phone: [facility] 01-21-2024 08:57-0400 Systolic blood pressure 127 mm[Hg] Sukumar Brewer MD Work Phone: [facility] 01-12-2024 11:28-0400 Body height 175.26 cm MD Julia Mcdaniels Work Phone: [facility] 01-12-2024 11:28-0400 Body mass index (BMI) [Ratio] 41.1 kg/m2 MD Julia Mcdaniels Work Phone: [facility] 01-12-2024 11:28-0400 Body weight 126.32 kg MD Julia Mcdaniels Work Phone: [facility] 01-12-2024 11:28-0400 Diastolic blood pressure 75 mm[Hg] MD Julia Mcdaniels Work Phone: [facility] 01-12-2024 11:28-0400 Heart rate 64 /min MD Julia Mcdaniels Work Phone: [facility] 01-12-2024 11:28-0400 Systolic blood pressure 114 mm[Hg] MD Julai Mcdaniels Work Phone: [facility] 12-29-2023 14:54-0400 Body height 177.2 cm Margarita Elke PA-C Work Phone: [facility] 12-29-2023 14:54-0400 Body temperature 97.59 [degF] Margarita Elke PA-C Work Phone: [facility] 12-29-2023 14:54-0400 Body weight 126.6 kg Margarita Elke PA-C Work Phone: [facility] 12-29-2023 14:54-0400 Diastolic blood pressure 89 mm[Hg] Margarita Elke PA-C Work Phone: [facility] 12-29-2023 14:54-0400 Heart rate 72 /min Margarita Elke PA-C Work Phone: [facility] 12-29-2023 14:54-0400 Respiratory rate 16 /min Margarita Elke PA-C Work Phone: [facility] 12-29-2023 14:54-0400 SaO2% (BldA) [Mass fraction] 97 % Margarita Elke PA-C Work Phone: [facility] 12-29-2023 14:54-0400 Systolic blood pressure 147 mm[Hg] Margarita Elke PA-C Work Phone: [facility] 12-14-2023 13:38-0500 Diastolic blood pressure 88 mm[Hg] Staci Kevin [facility] 12-14-2023 13:38-0500 Heart rate 74 /min Staci Clipik [facility] 12-14-2023 13:38-0500 Mean blood pressure 107 mm[Hg] Staci Kevin [facility] 12-14-2023 13:38-0500 Respiratory rate 18 /min Staci Kevin [facility] 12-14-2023 13:38-0500 Systolic blood pressure 144 mm[Hg] Staci Kevin [facility] 12-08-2023 13:14-0500 Body height 175.26 cm MD Julia Mcdaniels Work Phone: [facility] 12-08-2023 13:14-0500 Body mass index (BMI) [Ratio] 40.8 kg/m2 MD Julia Mcdaniels Work Phone: [facility] 12-08-2023 13:14-0500 Body weight 125.41 kg MD Julia Mcdaniels Work Phone: [facility] 12-08-2023 13:14-0500 Diastolic blood pressure 69 mm[Hg] MD Julia Mcdaniels Work Phone: [facility] 12-08-2023 13:14-0500 Heart rate 72 /min MD Julia Mcdaniels Work Phone: [facility] 12-08-2023 13:14-0500 Systolic blood pressure 146 mm[Hg] MD Julai Mcdaniels Work Phone: [facility] 10-26-2023 15:16-0500 Body height 177.8 cm Alejandrina Apodaca [facility] 10-26-2023 15:16-0500 Body mass index (BMI) [Ratio] 39.6 kg/m2 Alejandrina Apodaca [facility] 10-26-2023 15:16-0500 Body weight 125.19 kg Alejandrina Apodaca [facility] 10-26-2023 15:16-0500 Diastolic blood pressure 74 mm[Hg] Alejandrina Apodaca [facility] 10-26-2023 15:16-0500 Heart rate 138 /min Alejandrina Apodaca [facility] 10-26-2023 15:16-0500 Systolic blood pressure 114 mm[Hg] Alejandrina Apodaca [facility] 10-22-2023 09:42-0500 Body height 177.8 [facility] 09:42-0500 Body mass index (BMI) [Ratio] 39.6 kg/m2 Jen [facility] 10-22-2023 09:42-0500 Body weight 125.19 kg Jen [facility] 10-22-2023 09:42-0500 Diastolic blood pressure 78 mm[Hg] Jen [facility] 10-22-2023 09:42-0500 Heart rate 142 /min Jen [facility] 10-22-2023 09:42-0500 Systolic blood pressure 98 mm[Hg] Jen [facility] 10-07-2023 13:26-0500 Diastolic blood pressure 82 mm[Hg] Americo Rabago MD Work Phone: [facility] 10-07-2023 13:26-0500 Systolic blood pressure 110 mm[Hg] Americo Rabago MD Work Phone: [facility] 10-07-2023 13:21-0500 Body height 177.8 cm Americo Rabago MD Work Phone: [facility] 10-07-2023 13:21-0500 Body mass index (BMI) [Ratio] 40.46 kg/m2 Americo Rabago MD Work Phone: [facility] 10-07-2023 13:21-0500 Body weight 127.91 kg Americo Rabago MD Work Phone: [facility] 10-07-2023 13:21-0500 Heart rate 159 /min Americo Rabago MD Work Phone: [facility] 08-26-2023 15:50-0500 Body temperature 98.29 [degF] Chair Finney Work Phone: [facility] 08-26-2023 15:50-0500 Diastolic blood pressure 80 mm[Hg] Chair Fore[place] Work Phone: [facility] 08-26-2023 15:50-0500 Heart rate 80 /min Chair Sharmin Work Phone: [facility] 08-26-2023 15:50-0500 Respiratory rate 16 /min Chair Sharmin Work Phone: [facility] 08-26-2023 15:50-0500 Systolic blood pressure 140 mm[Hg] Chair Sharmin Work Phone: [facility] 08-26-2023 15:02-0500 Body height 177.2 cm Anselmo Mcpherson MD Work Phone: [facility] 08-26-2023 15:02-0500 Body temperature 97.59 [degF] Anselmo Mcpherson MD Work Phone: [facility] 08-26-2023 15:02-0500 Body weight 129.28 kg Anselmo Mcpherson MD Work Phone: [facility] 08-26-2023 15:02-0500 Diastolic blood pressure 76 mm[Hg] Anselmo Mcpherson MD Work Phone: [facility] 08-26-2023 15:02-0500 Heart rate 87 /min Anselmo Mcpherson MD Work Phone: [facility] 08-26-2023 15:02-0500 Respiratory rate 18 /min Anselmo Mcpherson MD Work Phone: [facility] 08-26-2023 15:02-0500 SaO2% (BldA) [Mass fraction] 97 % Anselmo Mcpherson MD Work Phone: [facility] 08-26-2023 15:02-0500 Systolic blood pressure 135 mm[Hg] Anselmo Mcpherson MD Work Phone: [facility] 06-23-2023 16:45-0400 Body height 175.26 cm Julia Mcdaniels Other [employer] Other 06-23-2023 16:45-0400 Body mass index (BMI) [Ratio] 42.94 kg/m2 Julia Mcdaniels Other [employer] Other 06-23-2023 16:45-0400 Body weight 131.91 kg Julia Mcdaniels Other [employer] Other 06-23-2023 16:45-0400 Diastolic blood pressure 71 mm[Hg] Julia Mcdaniels Other [employer] Other 06-23-2023 16:45-0400 Respiratory rate 12 /min Julia Mcdaniels Other [employer] Other 06-23-2023 16:45-0400 Systolic blood pressure 110 mm[Hg] Julia Mcdaniels Other [employer] Other 06-23-2023 15:45-0400 Body height 175.26 cm Julia Mcdaniels Other [employer] Other 06-23-2023 15:45-0400 Body mass index (BMI) [Ratio] 42.94 kg/m2 Julia Mcdaniels Other [employer] Other 06-23-2023 15:45-0400 Body weight 131.91 kg Julia Mcdaniels Other [employer] Other 06-23-2023 15:45-0400 Diastolic blood pressure 71 mm[Hg] Julia Mcdaniels Other [employer] Other 06-23-2023 15:45-0400 Respiratory rate 12 /min Julia Mcdaniels Other [employer] Other 06-23-2023 15:45-0400 Systolic blood pressure 110 mm[Hg] Julia Mcdaniels Other [employer] Other 05-28-2023 14:15-0400 Body height 175.26 cm Julia Mcdaniels Other [employer] Other 05-28-2023 14:15-0400 Body mass index (BMI) [Ratio] 42.82 kg/m2 Julia Mcdaniels Other [employer] Other 05-28-2023 14:15-0400 Body weight 131.54 kg Julia Mcdaniels Other [employer] Other 05-28-2023 14:15-0400 Diastolic blood pressure 78 mm[Hg] Julia Mcdaniels Other [employer] Other 05-28-2023 14:15-0400 SaO2% (BldA) [Mass fraction] 96 % Julia Mcdaniels Other [employer] Other 05-28-2023 14:15-0400 Systolic blood pressure 140 mm[Hg] Julia Mcdaniels Other [employer] Other 04-22-2023 16:22-0400 Body temperature 98.01 [degF] Chair Foreston Work Phone: [facility] 04-22-2023 16:22-0400 Diastolic blood pressure 70 mm[Hg] Chair Foreston Work Phone: [facility] 04-22-2023 16:22-0400 Heart rate 77 /min Chair Foreston Work Phone: [facility] 04-22-2023 16:22-0400 Respiratory rate 18 /min Chair Foreston Work Phone: [facility] 04-22-2023 16:22-0400 Systolic blood pressure 132 mm[Hg] Chair Sharmin Work Phone: [facility] 04-22-2023 15:11-0400 Body height 177.2 cm Anselmo Mcpherson MD Work Phone: [facility] 04-22-2023 15:11-0400 Body temperature 96.8 [degF] Anselmo Mcpherson MD Work Phone: [facility] 04-22-2023 15:11-0400 Body weight 132 kg Anselmo Mcpherson MD Work Phone: [facility] 04-22-2023 15:11-0400 Diastolic blood pressure 68 mm[Hg] Anselmo Mcpherson MD Work Phone: [facility] 04-22-2023 15:11-0400 Heart rate 77 /min Anselmo Mcpherson MD Work Phone: [facility] 04-22-2023 15:11-0400 Respiratory rate 18 /min Anselmo Mcpherson MD Work Phone: [facility] 04-22-2023 15:11-0400 SaO2% (BldA) [Mass fraction] 96 % Anselmo Mcpherson MD Work Phone: [facility] 04-22-2023 15:11-0400 Systolic blood pressure 136 mm[Hg] Anselmo Mcpherson MD Work Phone: [facility] 04-16-2023 09:30-0400 Body height 175.26 cm Julia Mcdaniels Other [employer] Other 04-16-2023 09:30-0400 Body mass index (BMI) [Ratio] 42.7 kg/m2 Julia Mcdaniels Other [employer] Other 04-16-2023 09:30-0400 Body weight 131.18 kg Julia Mcdaniels Other [employer] Other 04-16-2023 09:30-0400 Diastolic blood pressure 70 mm[Hg] Julia Mcdaniels Other [employer] Other 04-16-2023 09:30-0400 Systolic blood pressure 101 mm[Hg] Julia Mcdaniels Other [employer] Other 03-10-2023 10:30-0400 Body height 175.26 cm Julia Mcdaniels Other [employer] Other 03-10-2023 10:30-0400 Body mass index (BMI) [Ratio] 42.97 kg/m2 Julia Mcdaniels Other [employer] Other 03-10-2023 10:30-0400 Body weight 132 kg Julia Mcdaniels Other [employer] Other 03-10-2023 10:30-0400 Diastolic blood pressure 76 mm[Hg] Julia Mcdaniels Other [employer] Other 03-10-2023 10:30-0400 Systolic blood pressure 133 mm[Hg] Julia Mcdaniels Other [employer] Other 12-30-2022 11:58-0400 Body height 177.8 cm Julia Mcdaniels Work Phone: [employer] [facility] 250 DO Work Phone: 12-30-2022 11:58-0400 Body mass index (BMI) [Ratio] 40.46 kg/m2 Julia Mcdaniels Work Phone: [employer] [facility] 250 DO Work Phone: 12-30-2022 11:58-0400 Body surface area Derived from formula 2.42 m2 Julia Mcdaniels Work Phone: [employer] [facility] [place] [facility] 250 DO Work Phone: 12-30-2022 11:58-0400 Body weight 127.92 kg Julia Mcdaniels Work Phone: [facility] 250 DO Work Phone: 12-30-2022 11:58-0400 Diastolic blood pressure 68 mm[Hg] Julia Mcdaniels Work Phone: [facility] 250 DO Work Phone: 12-30-2022 11:58-0400 Heart rate 76 /min Julia Mcdaniels Work Phone: [facility] 250 DO Work Phone: 12-30-2022 11:58-0400 Systolic blood pressure 112 mm[Hg] Julia Mcdaniels Work Phone: [facility] 250 DO Work Phone: 12-17-2022 16:07-0500 Diastolic blood pressure 70 mm[Hg] Chair Sharmin Work Phone: [facility] 12-17-2022 16:07-0500 Heart rate 60 /min Chair Sharmin Work Phone: [facility] 12-17-2022 16:07-0500 Respiratory rate 18 /min Chair Sharmin Work Phone: [facility] 12-17-2022 16:07-0500 Systolic blood pressure 121 mm[Hg] Chair Foreston Work Phone: [facility] 12-17-2022 15:22-0500 Body height 177.2 cm Anselmo Mcpherson MD Work Phone: [facility] 12-17-2022 15:22-0500 Body temperature 97.39 [degF] Anselmo Mcpherson MD Work Phone: [facility] 12-17-2022 15:22-0500 Body weight 125.47 kg Anselmo Mcpherson MD Work Phone: [facility] 12-17-2022 15:22-0500 Diastolic blood pressure 85 mm[Hg] Anselmo Mcpherson MD Work Phone: [facility] 12-17-2022 15:22-0500 Heart rate 82 /min Anselmo Mcpherson MD Work Phone: [facility] 12-17-2022 15:22-0500 Respiratory rate 18 /min Anselmo Mcpherson MD Work Phone: [facility] 12-17-2022 15:22-0500 SaO2% (BldA) [Mass fraction] 98 % Anselmo Mcpherson MD Work Phone: [facility] 12-17-2022 15:22-0500 Systolic blood pressure 124 mm[Hg] Anselmo Mcpherson MD Work Phone: [facility] 11-05-2022 14:26-0500 Body height 177.8 cm Julia Mcdaniels Work Phone: [facility] 250 DO Work Phone: 11-05-2022 14:26-0500 Body mass index (BMI) [Ratio] 40.32 kg/m2 Julia Mcdaniels Work Phone: [facility] 250 DO Work Phone: 11-05-2022 14:26-0500 Body surface area Derived from formula 2.41 m2 Julia Mcdaniels Work Phone: [facility] 250 DO Work Phone: 11-05-2022 14:26-0500 Body weight 127.46 kg Julia Mcdaniels Work Phone: [facility] 250 DO Work Phone: 11-05-2022 14:26-0500 Diastolic blood pressure 88 mm[Hg] Julia Mcdaniels Work Phone: [facility] 250 DO Work Phone: 11-05-2022 14:26-0500 Heart rate 84 /min Julia Mcdaniels Work Phone: [facility] 250 DO Work Phone: 11-05-2022 14:26-0500 Systolic blood pressure 126 mm[Hg] Julia Mcdaniels Work Phone: [facility] 250 DO Work Phone: 10-23-2022 15:38-0500 47 1 Julia Mcdaniels Work Phone: [facility] 250 DO Work Phone: Comment on above: [place] [id number] 10-23-2022 15:30-0500 65 1 Julia Mcdaniels Work Phone: [facility] 250 DO Work Phone: Comment on above: [place] [id number] 10-23-2022 14:01-0500 Body height 177.8 cm MD Julia Mcdaniels Work Phone: [facility] 10-23-2022 14:01-0500 Body weight 127 kg MD Julia Mcdaniels Work Phone: [facility] 10-23-2022 13:35-0500 Diastolic blood pressure 84 mm[Hg] MD Julia Mcdaniels Work Phone: [facility] 10-23-2022 13:35-0500 Heart rate 71 /min MD Julia Mcdaniels Work Phone: [facility] 10-23-2022 13:35-0500 Systolic blood pressure 134 mm[Hg] MD Julia Mcdaniels Work Phone: [facility] 10-15-2022 15:30-0500 Body height 175.26 cm Julia Mcdaniels Other [facility] [employer] Other 10-15-2022 15:30-0500 Body mass index (BMI) [Ratio] 42.97 kg/m2 Julia Mcdaniels Other [employer] Other 10-15-2022 15:30-0500 Body weight 132 kg Juliacarla Mcdaniels Other [employer] Other 10-15-2022 15:30-0500 Diastolic blood pressure 82 mm[Hg] Julia Mcdaniels Other [employer] Other 10-15-2022 15:30-0500 SaO2% (BldA) [Mass fraction] 97 % Julia Arslan Other [employer] Other 10-15-2022 15:30-0500 Systolic blood pressure 140 mm[Hg] Julia Mcdaniels Other [employer] Other 08-27-2022 14:46-0500 Body height 177.2 cm Anselmo Mcpherson MD Work Phone: [facility] 08-27-2022 14:46-0500 Body temperature 97.9 [degF] Anselmo Mcpherson MD Work Phone: [facility] 08-27-2022 14:46-0500 Body weight 128.82 kg Anselmo Mcpherson MD Work Phone: [facility] 08-27-2022 14:46-0500 Diastolic blood pressure 80 mm[Hg] Anselmo Mcpherson MD Work Phone: [facility] 08-27-2022 14:46-0500 Heart rate 79 /min Anselmo Mcpherson MD Work Phone: [facility] 08-27-2022 14:46-0500 Respiratory rate 18 /min Anselmo Mcpherson MD Work Phone: [facility] 08-27-2022 14:46-0500 SaO2% (BldA) [Mass fraction] 94 % Anselmo Mcpherson MD Work Phone: [facility] 08-27-2022 14:46-0500 Systolic blood pressure 146 mm[Hg] Anselmo Mcpherson MD Work Phone: [facility] 08-05-2022 16:20-0400 Blood Pressure Location Anupam Pocos [facility] 08-05-2022 16:20-0400 Body temperature 98.06 [degF] Anupam Pocos [facility] 08-05-2022 16:20-0400 BP/Pulse Patient Position Anupam Pocos [facility] 08-05-2022 16:20-0400 Diastolic blood pressure 85 mm[Hg] Anupam Pocos [facility] 08-05-2022 16:20-0400 Heart rate 80 /min Anupam Pocos [facility] 08-05-2022 16:20-0400 Respiratory rate 16 /min Anupam Pocos [facility] 08-05-2022 16:20-0400 SaO2% (BldA) [Mass fraction] 97 % Anupam Pocos [facility] 08-05-2022 16:20-0400 Systolic blood pressure 128 mm[Hg] Anupam Pocos [facility] 08-05-2022 15:25-0400 Blood Pressure Location Anupam Pocos [facility] 08-05-2022 15:25-0400 BP/Pulse Patient Position Anupam Pocos [facility] 08-05-2022 15:25-0400 Diastolic blood pressure 76 mm[Hg] Anupam Pocos [facility] 08-05-2022 15:25-0400 Heart rate 78 /min Anupam Pocos [facility] 08-05-2022 15:25-0400 Mean blood pressure 90 mm[Hg] Anupam Pocos [facility] 08-05-2022 15:25-0400 Respiratory rate 18 /min Anupam Pocos [facility] 08-05-2022 15:25-0400 SaO2% (BldA) [Mass fraction] 96 % Anupam Pocos [facility] 08-05-2022 15:25-0400 Systolic blood pressure 118 mm[Hg] Anupam Pocos [facility] 08-05-2022 12:45-0400 Blood Pressure Location Anupam Pocos [facility] 08-05-2022 12:45-0400 Body temperature 97.52 [degF] Anupam Pocos [facility] 08-05-2022 12:45-0400 Diastolic blood pressure 84 mm[Hg] Anupam Pocos [facility] 08-05-2022 12:45-0400 Heart rate 96 /min Anupam Pocos [facility] 08-05-2022 12:45-0400 Mean blood pressure 97 mm[Hg] Anupam Pocos [facility] 08-05-2022 12:45-0400 Respiratory rate 16 /min Anupam Pocos [facility] 08-05-2022 12:45-0400 SaO2% (BldA) [Mass fraction] 93 % Anupam Pocos [facility] 08-05-2022 12:45-0400 Systolic blood pressure 125 mm[Hg] Anupam Pocos [facility] 08-05-2022 12:30-0400 Body temperature 96.98 [degF] Anupam Pocos [facility] 08-05-2022 12:30-0400 Respiratory rate 18 /min Anupam Pocos [facility] 08-05-2022 12:20-0400 Respiratory rate 16 /min Anupam Pocos [facility] 08-05-2022 12:05-0400 Respiratory rate 15 /min Anupam Pocos [facility] 08-05-2022 11:31-0400 Body temperature 97.52 [degF] Anupam Pocos [facility] 08-05-2022 06:25-0400 Mean blood pressure 88 mm[Hg] Anupam Pocos [facility] 08-05-2022 06:23-0400 Body temperature 97.7 [degF] Anupam Pocos [facility] 08-05-2022 06:23-0400 Heart rate 74 /min Anupam Pocos [facility] 07-30-2022 14:27-0400 Diastolic blood pressure 73 mm[Hg] Chair Foreston Work Phone: [facility] 07-30-2022 14:27-0400 Heart rate 64 /min Chair Foreston Work Phone: [facility] 07-30-2022 14:27-0400 Respiratory rate 18 /min Chair Sharmin Work Phone: [facility] 07-30-2022 14:27-0400 Systolic blood pressure 120 mm[Hg] Chair Foreston Work Phone: [facility] 07-30-2022 13:34-0400 Body height 177.2 cm Margarita Mayer PA-C Work Phone: [facility] 07-30-2022 13:34-0400 Body temperature 97.5 [degF] Margarita Mayer PA-C Work Phone: [facility] 07-30-2022 13:34-0400 Body weight 129.28 kg Margarita Mayer PA-C Work Phone: [facility] 07-30-2022 13:34-0400 Diastolic blood pressure 81 mm[Hg] Margarita Elke PA-C Work Phone: [facility] 07-30-2022 13:34-0400 Heart rate 71 /min Margarita Elke PA-C Work Phone: [facility] 07-30-2022 13:34-0400 Respiratory rate 20 /min Margarita Elke PA-C Work Phone: [facility] 07-30-2022 13:34-0400 SaO2% (BldA) [Mass fraction] 96 % Margarita Elke PA-C Work Phone: [facility] 07-30-2022 13:34-0400 Systolic blood pressure 150 mm[Hg] Margarita Elke PA-C Work Phone: [facility] 07-18-2022 07:51-0400 Blood Pressure Location Anupam Pocos [facility] 07-18-2022 07:51-0400 BP/Pulse Patient Position Anupam Pocos [facility] 07-18-2022 07:51-0400 Diastolic blood pressure 79 mm[Hg] Anupam Pocos [facility] 07-18-2022 07:51-0400 Heart rate 81 /min Anupam Pocos [facility] 07-18-2022 07:51-0400 Mean blood pressure 95 mm[Hg] Anupam Pocos [facility] 07-18-2022 07:51-0400 Respiratory rate 18 /min Anupam Pocos [facility] 07-18-2022 07:51-0400 SaO2% (BldA) [Mass fraction] 96 % Anupam Pocos [facility] 07-18-2022 07:51-0400 Systolic blood pressure 125 mm[Hg] Anupam Pocos [facility] 07-18-2022 07:51-0400 Body temperature 97.7 [degF] Anupam Pocos [facility] 07-18-2022 07:50-0400 Diastolic blood pressure 83 mm[Hg] Anupam Pocos [facility] 07-18-2022 07:50-0400 Heart rate 85 /min Anupam Pocos [facility] 07-18-2022 07:50-0400 Mean blood pressure 96 mm[Hg] Anupam Pocos [facility] 07-18-2022 07:50-0400 SaO2% (BldA) [Mass fraction] 96 % Anupam Pocos [facility] 07-18-2022 07:50-0400 Systolic blood pressure 122 mm[Hg] Anupam Pocos [facility] 07-18-2022 07:50-0400 Blood Pressure Location Anupam Pocos [facility] Encounters Encounter Date Encounter Type Care Provider Facility Start: 05-26-2025 End: 05-26-2025 Office outpatient new 60 minutes Zohaib Borja MD Work Phone: [facility] Comment on above: PAD (peripheral gonzalez ry disease) (Primary Dx); History of smoking; Carotid stenosis, asymptomatic, bilateral Start: 05-26-2025 End: 05-26-2025 ambulatory ZOHAIB BORJA [facility] Ambulatory Start: 05-08-2025 End: 05-08-2025 ambulatory Julia Mcdaniels MD Work Phone: [facility] Work Phone: Start: 05-08-2025 End: 05-08-2025 Patient encounter procedure Julia Mcdaniels MD -[facility] Work Phone: Start: 05-01-2025 End: 05-01-2025 Patient encounter procedure Jairo Pocos DO Work Phone: [facility] Comment on above: History of total lef t knee replacement (Primary Dx) Start: 05-01-2025 End: 05-01-2025 ambulatory JAIRO POCOS Not Available Start: 05-01-2025 End: 05-01-2025 ambulatory JAIRO POCOS Not Available Start: 04-19-2025 Patient encounter status Marce Mcdaniels MD Work Phone: [facility] Start: 04-07-2025 End: 04-07-2025 ambulatory Julia Mcdaniels MD Work Phone: [facility] Work Phone: Start: 04-07-2025 End: 04-07-2025 Patient encounter procedure Julia Mcdaniels MD -[facility] Work Phone: Start: 04-07-2025 End: 04-07-2025 Patient encounter status Julia Mcdaniels MD [facility] Start: 02-27-2025 End: 02-27-2025 Patient encounter procedure Jairo Pocos DO Work Phone: [facility] Comment on above: Aftercare following left knee joint replacement surgery (Primary Dx) Start: 02-27-2025 End: 02-27-2025 ambulatory JAIRO POCOS Not Available Start: 02-11-2025 End: 02-11-2025 Office outpatient new 30 minutes Ac Laird PA-C Work Phone: [facility] Comment on above: Left wrist tendoniti s (Primary Dx) Start: 01-31-2025 End: 01-31-2025 Clinisync Result Encounter Jairo Pocos DO Work Phone: [facility] Unsolicited Start: 01-31-2025 End: 01-31-2025 Clinisync Result Encounter Jairo Pocos DO Work Phone: [facility] Unsolicited Start: 01-31-2025 End: 01-31-2025 Admission to same day surgery center Anupam Selfos [facility] Start: 01-31-2025 End: 01-31-2025 ambulatory Anupam Anand Pocos Facility[place] [place] Start: 01-12-2025 End: 01-12-2025 Clinisync Result Encounter Anupam Anand Pocos DO Work Phone: [facility] Unsolicited Start: 01-12-2025 End: 01-12-2025 Clinisync Result Encounter Anupam Anand Pocos DO Work Phone: [facility] Unsolicited Start: 01-12-2025 End: 01-13-2025 ambulatory Anupam Anand Pocos Facility:[facility] [place] Start: 01-12-2025 End: 01-13-2025 Patient encounter procedure Anupam Quesada [facility] Start: 01-05-2025 End: 01-05-2025 Office outpatient visit 25 minutes Maribeth Phipps MD Work Phone: [facility] Comment on above: Preop examination; Primary hypertension; Atrial fibrillation, currently in sinus rhythm; High risk medication use; Persistent atrial fibrillation (Multi); halfway current use of anticoagulant therapy; Hard of hearing; Mixed hyperlipidemia; Encounter to discuss test results; Other hyperlipidemia Start: 01-05-2025 End: 01-05-2025 ambulatory [facility] Amb[facility] Start: 01-05-2025 End: 01-05-2025 Encounter for other preprocedural examination [facility] Ambulatory Start: 01-05-2025 End: 01-05-2025 Preprocedural examination done Maribeth Phipps MD Work Phone: [facility] Start: 01-04-2025 End: 01-04-2025 Patient encounter procedure Anupam Selfos DO Work Phone: [facility] Comment on above: S/P total knee arthr oplasty, right (Primary Dx); Left knee pain, unspecified chronicity; Primary osteoarthritis of left knee; Morbid obesity (CMS/HCC); halfway (current) use of anticoagulants; Preoperative testing Start: 01-04-2025 End: 01-04-2025 Patient encounter status Anupam Anand Pocos DO Work Phone: [facility] Start: 01-04-2025 End: 01-04-2025 ambulatory ANUPAM Anand POCOS Not Available Start: 01-04-2025 End: 01-04-2025 ambulatory ANUPAM Anand POCOS Not Available Start: 12-14-2024 End: 12-14-2024 Bamboo flowsheet Anupam Anand Pocos DO Work Phone: [facility] Start: 12-14-2024 End: 12-14-2024 Bamboo flowsheet Anupam Anand Pocos DO Work Phone: [facility] Start: 12-14-2024 End: 12-14-2024 ambulatory ANUPAM Anand POCOS Not Available Start: 11-09-2024 End: 11-09-2024 Patient encounter procedure Anupam Anand Pocos DO Work Phone: [facility] Comment on above: Rotator cuff tear ar thropathy of right shoulder (Primary Dx); Right shoulder pain, unspecified chronicity Start: 11-09-2024 End: 11-09-2024 ambulatory ANUPAM Anand POCOS Not Available Start: 11-09-2024 End: 11-09-2024 ambulatory ANUPAM Anand POCOS Not Available Start: 10-26-2024 End: 10-26-2024 Bamboo flowsheet Anupam Anand Pocos DO Work Phone: [facility] Start: 10-26-2024 End: 10-26-2024 Bamboo flowsheet Anupam Anand Pocos DO Work Phone: [facility] Start: 10-26-2024 End: 10-26-2024 Patient encounter procedure Anupam Anand Pocos DO Work Phone: [facility] Comment on above: Arthritis of left sh oulder region (Primary Dx); Morbid obesity (CMS/HCC); halfway (current) use of anticoagulants Start: 10-26-2024 End: 10-26-2024 ambulatory JAIRO POCOS Not Available Start: 10-25-2024 End: 10-25-2024 ambulatory Treatment 12 Shawn Rej Work Phone: Hematology Start: 10-25-2024 End: 10-25-2024 Patient encounter procedure Mackenzie Thomasrinides HOME OFFICE REPRESENTATIVE.DIRECTOR OF ASSESSING Work Phone: Hematology Comment on above: Secondary polycythem ia (Primary Dx) Secondary polycythem ia (Primary Dx); Polycythemia, secondary; Low testosterone in male; History of atrial fibrillation; Rotator cuff tear arthropathy, left Start: 10-24-2024 End: 10-24-2024 ambulatory [facility] Work Phone: Start: 10-24-2024 End: 10-24-2024 Patient encounter procedure [facility] Work Phone: Start: 10-21-2024 End: 10-21-2024 Patient encounter procedure Anselmo Mcpherson MD Work Phone: Hematology Comment on above: Labs Start: 10-21-2024 Non-patient / Non-visit [facility] Work Phone: Start: 10-21-2024 End: 10-21-2024 ambulatory Anselmo Mcpherson MD Work Phone: Hematology Start: 10-20-2024 Non-patient / Non-visit [facility] Work Phone: Start: 10-19-2024 End: 10-19-2024 Emergency department patient visit Sarabjit Moore [facility] Start: 10-18-2024 End: 10-18-2024 Orders Only Mackenzie Lambrinides HOME OFFICE REPRESENTATIVE.DIRECTOR OF ASSESSING Work Phone: Hematology Comment on above: Polycythemia, second jc (Primary Dx) Start: 10-17-2024 End: 10-17-2024 Telephone encounter Melissa Loredo RN Hematology Comment on above: Appointment Start: 09-14-2024 End: 09-14-2024 Office outpatient visit 25 minutes Maribeth Phipps MD Work Phone: [facility] Comment on above: Atrial fibrillation, currently in sinus rhythm; High risk medication use; Primary hypertension; halfway current use of anticoagulant therapy; Hard of hearing; Encounter to discuss test results; Other hyperlipidemia; Persistent atrial fibrillation (Multi) Start: 09-14-2024 End: 09-14-2024 ambulatory MARIBETH PHIPPS [facility] Ambulatory Start: 09-13-2024 ambulatory JULIA MCDANIELS [facility] Start: 08-03-2024 End: 08-03-2024 ambulatory ANUPAM Anand POCOS Not Available Start: 08-03-2024 End: 08-03-2024 Patient encounter procedure Jairo Pocos DO Work Phone: [facility] Comment on above: Lumbar pain (Primary Dx); Degeneration of intervertebral disc of lumbar region with discogenic back pain; Sacroiliitis (CMS/HCC); Morbid obesity (CMS/HCC) Start: 08-03-2024 End: 08-03-2024 ambulatory ANUPAM Anand POCOS Not Available Start: 07-25-2024 End: 07-25-2024 ambulatory Staci Kevin Facility:[facility] [place] Start: 07-25-2024 End: 07-25-2024 Patient encounter procedure Staci Kevin [facility] Start: 07-18-2024 End: 07-18-2024 ambulatory JULIA MCDANIELS Facility:[facility] [place] Start: 07-18-2024 End: 07-18-2024 Patient encounter procedure JULIA MCDANIELS [facility] Start: 07-11-2024 End: 07-11-2024 ambulatory David Cao Facility:[facility] [place] Start: 07-11-2024 End: 07-11-2024 Pain Management David Cao [facility] Start: 07-07-2024 End: 07-07-2024 ambulatory Treatment 5 Shawn Rej Work Phone: Hematology Start: 07-07-2024 End: 07-07-2024 Patient encounter procedure Treatment Rej Work Phone: Hematology Comment on above: Polycythemia, second jc (Primary Dx); Secondary polycythemia Start: 06-24-2024 End: 06-27-2024 ambulatory Treatment 11 Shawn Rej Work Phone: Hematology Start: 06-24-2024 End: 06-24-2024 Patient encounter procedure Anselmo Mcpherson MD Work Phone: Hematology Comment on above: Polycythemia, second jc (Primary Dx); Low testosterone in male Polycythemia, second jc (Primary Dx); Secondary polycythemia Start: 06-24-2024 End: 06-24-2024 ambulatory ANSELMO MCPHERSON Facility:[facility] Start: 06-20-2024 End: 06-23-2024 ambulatory Anselmo Mcpherson MD Work Phone: Hematology/Oncology Comment on above: Possible phlebotomy Start: 06-10-2024 End: 06-10-2024 ambulatory [facility] Facility:[facility] [place] Start: 06-10-2024 End: 06-10-2024 Pain Management [facility] Start: 04-29-2024 End: 04-29-2024 ambulatory [facility] Facility:[facility] [place] Start: 04-29-2024 End: 04-29-2024 Pain Management [facility] Start: 04-21-2024 End: 04-21-2024 [facility] Start: 04-21-2024 End: 04-21-2024 Office outpatient visit 25 minutes Sukumar Brewer MD Work Phone: [facility] Comment on above: Bilateral carotid ar blanca stenosis (Primary Dx); Claudication ([facility]) Start: 04-05-2024 ambulatory Anselmo Mcpherson MD Work Phone: Hematology/Oncology Comment on above: Hemoglobin-Testoster one Start: 03-29-2024 End: 03-29-2024 ambulatory DO David Cao Facility:[facility] [place] Start: 03-29-2024 End: 03-29-2024 Pain Management David Cao [facility] Start: 03-22-2024 End: 03-22-2024 Patient encounter procedure Anselmo Mcpherson MD Work Phone: Hematology/Oncology Start: 03-22-2024 End: 03-22-2024 ambulatory Anselmo Mcpherson MD Work Phone: Hematology/Oncology Comment on above: Polycythemia, second jc (Primary Dx) Start: 03-01-2024 End: 03-01-2024 ambulatory JULIA MCDANIELS Facility:[facility] [place] Start: 03-01-2024 End: 03-01-2024 Patient encounter procedure JULIA MCDANIELS [facility] Start: 02-22-2024 ambulatory Anselmo Mcpherson MD Work Phone: Hematology/Oncology Start: 02-22-2024 Patient encounter procedure Anselmo Mcpherson MD Work Phone: Hematology/Oncology Comment on above: Appointment changed to March Start: 02-17-2024 End: 02-17-2024 ambulatory [facility] Work Phone: Start: 02-17-2024 End: 02-17-2024 Patient encounter procedure [facility] Work Phone: Start: 02-12-2024 End: 02-12-2024 Pain Management Staci Kevin [facility] Start: 02-12-2024 End: 02-12-2024 ambulatory ELIAS Kevin Facility:[facility] [place] Start: 02-12-2024 End: 02-12-2024 Patient encounter procedure Ruben ALMEIDAL [facility] [place] Start: 02-10-2024 End: 02-10-2024 ambulatory Anupam Quesada Facility:[facility] [place] Start: 02-10-2024 End: 02-10-2024 Patient encounter procedure Anupam Quesada [facility] Start: 02-04-2024 End: 02-04-2024 Admission to same day surgery center Ruben ALMEIDAL [facility] Start: 02-04-2024 End: 02-04-2024 ambulatory Ruben Martinez NILL Facility:[facility] [place] Start: 01-28-2024 End: 01-28-2024 ambulatory Ruben R NILL Facility:[facility] Start: 01-28-2024 End: 01-28-2024 Patient encounter procedure Ruben Michelle NILL [facility] [place] Start: 01-27-2024 End: 01-27-2024 ambulatory DO David Cao Facility:[facility] [place] Start: 01-27-2024 End: 01-27-2024 Pain Management David Cao [facility] Start: 01-21-2024 End: 01-21-2024 ambulatory SUKUMAR BREWER [facility] Start: 01-21-2024 End: 01-21-2024 Office outpatient visit 25 minutes Sukumar Brewer MD Work Phone: [facility] Comment on above: Bilateral carotid ar blanca stenosis (Primary Dx); Claudication ([facility]) Start: 01-14-2024 ambulatory JULIA MCDANIELS Facility:[facility] Start: 01-14-2024 Chart abstracting Sukumar perez MD Work Phone: [facility] Start: 01-12-2024 End: 01-12-2024 ambulatory MD Julia Mcdaniels Work Phone: [facility] Work Phone: Start: 01-12-2024 End: 01-12-2024 Patient encounter procedure MD Julia Mcdaniels Work Phone: [facility] Work Phone: Start: 12-29-2023 End: 12-29-2023 Visit (SP) Office Margarita Taylor PA-C Work Phone: Hematology/Oncology Comment on above: Polycythemia, second jc (Primary Dx); Low testosterone in male; Platelet disorder (HCC) Start: 12-29-2023 Non-patient / Non-visit MD Nuha Mcdaniels Work Phone: [facility] [employer] Work Phone: Start: 12-14-2023 End: 12-14-2023 ambulatory ELIAS Kevin Facility:[facility] [place] Start: 12-14-2023 End: 12-14-2023 Pain Management Staci Kevin [facility] Start: 12-08-2023 End: 12-08-2023 Patient encounter procedure MD Julia Mcdaniels Work Phone: [facility] Work Phone: Start: 11-18-2023 End: 11-18-2023 ambulatory Julia Mcdaniels Other [facility] [employer] Other Start: 11-18-2023 Encounter by compute michelle Mcdaniels [facility] Start: 11-04-2023 Encounter by brianna Mcdaniels [facility] Start: 11-04-2023 Telephone encounter Julia Mcdaniels [facility] Start: 11-04-2023 End: 11-04-2023 ambulatory Americo Rabago Facility:[facility] Start: 11-04-2023 End: 11-04-2023 Admission to same day surgery center MD Julia Mcdaniels Work Phone: [facility] Work Phone: Start: 11-04-2023 End: 11-04-2023 ambulatory MD Julia Mcdaniels Work Phone: [facility] Work Phone: Start: 10-28-2023 End: 10-28-2023 ambulatory Julia Mcdaniels Other [facility] [employer] Other Start: 10-28-2023 Encounter by brianna Mcdaniels [facility] Start: 10-26-2023 End: 10-26-2023 Professional / ancillary services management Alejandrina Apodaca [facility] Comment on above: Persistent atrial fi brillation (CMS/HCC) Start: 10-22-2023 End: 10-22-2023 Professional / ancillary services management Jen Aguilar [facility] Comment on above: Persistent atrial fi brillation (CMS/HCC) Start: 10-07-2023 End: 10-07-2023 Office outpatient visit 25 minutes Americo Rabago MD Work Phone: [facility] Comment on above: Abnormal EKG; Essential hypertension; Persistent atrial fibrillation (CMS/HCC); Preoperative clearance; PAC (premature atrial contraction); Palpitations Start: 10-07-2023 End: 10-07-2023 Preoperative state Americo Rabago MD Work Phone: [facility] Work Phone: Start: 09-30-2023 ambulatory Margarita Taylor PA-C Work Phone: Hematology/Oncology Comment on above: Testosterone Start: 09-30-2023 Telephone encounter Margarita thomas PA-C Work Phone: Hematology/Oncology Comment on above: Patient Question Start: 09-09-2023 End: 09-09-2023 ambulatory Anupam Quesada Facility:[facility] [place] Start: 09-09-2023 End: 09-09-2023 Patient encounter procedure Anupam Quesada [facility] Start: 09-07-2023 End: 09-08-2023 ambulatory Torres Foote MD Facility: [facility] Start: 09-01-2023 End: 09-01-2023 ambulatory Anupam Anand Pocos Facility:[facility] [place] Start: 09-01-2023 End: 09-01-2023 Patient encounter procedure Anupam Anand Pocos [facility] Start: 08-26-2023 End: 08-26-2023 ambulatory Anselmo Mcpherson MD Work Phone: Hematology/Oncology Comment on above: Polycythemia, second jc (Primary Dx) Secondary polycythem ia (Primary Dx) Start: 08-26-2023 End: 08-26-2023 Patient encounter procedure Anselmo Mcpherson MD Work Phone: [facility] Start: 08-10-2023 End: 08-11-2023 ambulatory Torres Foote MD Facility:[facility] Start: 07-17-2023 End: 07-17-2023 ambulatory Julia Mcdaniels Other [employer] Other Start: 07-17-2023 Telephone encounter Julia Mcdaniels [facility] Start: 06-30-2023 Telephone encounter Kathy Jordan Hematology/Oncology Comment on above: Appointment Start: 06-23-2023 End: 06-23-2023 ambulatory Julia Mcdaniels Other [employer] Other Start: 06-23-2023 Office outpatient vi sit 15 minutes Julia Mcdaniels [facility] Start: 05-29-2023 End: 05-29-2023 ambulatory Julia Mcdaniels Other [employer] Other Start: 05-29-2023 Telephone encounter Julia Mcdaniels [facility] Start: 05-28-2023 End: 05-28-2023 ambulatory Julia Mcdaniels Other [employer] Other Start: 05-28-2023 Office outpatient vi sit 15 minutes Julia Mcdaniels [facility] Start: 05-25-2023 End: 05-25-2023 ambulatory Julia Mcdaniels Other [employer] Other Start: 05-25-2023 Telephone encounter Julia Mcdaniels [facility] Start: 04-22-2023 End: 04-22-2023 ambulatory Chair 21 Sharmin Work Phone: Hematology/Oncology Comment on above: Secondary polycythem ia (Primary Dx) Polycythemia, second jc (Primary Dx) Start: 04-22-2023 End: 04-22-2023 Patient encounter procedure Anselmo Mcpherson MD Work Phone: [employer] Start: 04-16-2023 End: 04-16-2023 ambulatory Julia Mcdaniels Other [employer] Other Start: 04-16-2023 Office outpatient vi sit 15 minutes Julia Mcdaniels [facility] Start: 03-26-2023 End: 03-26-2023 ambulatory Julia Mcdaniels Other [employer] Other Start: 03-26-2023 Telephone encounter Juila Mcdaniels [facility] Start: 03-25-2023 End: 03-25-2023 ambulatory Julia Mcdaniels Other [employer] Other Start: 03-25-2023 Telephone encounter Julia Mcdaniels [facility] Start: 03-10-2023 End: 03-10-2023 ambulatory Julia Mcdaniels Other [employer] Other Start: 03-10-2023 Office outpatient vi sit 15 minutes Julia Mcdaniels [facility] Start: 03-10-2023 End: 03-10-2023 Patient encounter procedure JULIA MCDANIELS [facility] Start: 01-21-2023 End: 01-21-2023 ambulatory Julia Mcdaniels Other [employer] Other Start: 01-21-2023 Telephone encounter Julia Mcdaniels [facility] Start: 12-30-2022 Office outpatient vi sit 15 minutes Julia Mcdaniels Work Phone: [facility] 250 DO Work Phone: Start: 12-30-[address] Americo Rabago II Facility: Start: 12-17-2022 End: 12-17-2022 ambulatory Anselmo Mcpherson MD Work Phone: Hematology/Oncology Comment on above: Polycythemia, second jc (Primary Dx) Secondary polycythem ia (Primary Dx) Start: 12-17-2022 End: 12-17-2022 Patient encounter procedure Anselmo Mcpherson MD Work Phone: [employer] Start: 12-12-2022 End: 12-13-[address] MARCEL ANTOINE Facility: Start: 11-21-[address] Americo Rabago II Facility: Start: 11-10-2022 Patient encounter procedure Julia Mcdaniels Work Phone: [facility] 250 DO Work Phone: Start: 11-10-[address] Americo Rabago II Facility: Start: 11-05-2022 Office consultation new/estab patient 60 min Julia Mcdaniels Work Phone: [facility] 250 DO Work Phone: Start: 11-05-[address] Americo Rabago II Facility: Start: 2022 End: 2022 ambulatory Julia Mcdaniels Other [employer] Other Start: 2022 Telephone encounter Julia Mcdaniels [facility] Start: 10-23-2022 End: 10-23-2022 ambulatory MD Julia Mcdaniels Work Phone: [facility] Work Phone: Start: 10-23-2022 End: 10-23-2022 Patient encounter procedure MD Julia Mcdaniels Work Phone: [facility] Work Phone: Start: 10-23-[address] Julia Mcdaniels Facility:[id number] Start: 10-23-[address] Americo aWlker II Facility:[id number] Start: 10-21-2022 End: 10-21-2022 ambulatory Julia Mcdaniels Other [employer] Other Start: 10-21-2022 Telephone encounter Julia Mcdaniels [facility] Start: 10-16-2022 End: 10-16-2022 ambulatory Julia Mcdaniels Other [employer] Other Start: 10-16-2022 Telephone encounter Julia Mcdaniels [facility] Start: 10-15-2022 End: 10-15-2022 ambulatory Julia Mcdaniels Other [employer] Other Start: 10-15-2022 Office outpatient vi sit 15 minutes Julia Mcdaniels [facility] Start: 09-03-2022 End: 09-03-2022 ambulatory MD Julia Mcdaniels Work Phone: [facility] Work Phone: Start: 09-03-2022 End: 09-03-2022 Patient encounter procedure MD Julia Mcdaniels Work Phone: [facility] [place] Start: 08-27-2022 End: 08-27-2022 ambulatory Anselmo Mcpherson MD Work Phone: Hematology/Oncology Comment on above: Polycythemia, second jc (Primary Dx) Start: 08-27-2022 End: 08-27-2022 Patient encounter procedure Anselmo Mcpherson MD Work Phone: [facility] Start: 08-25-2022 Adult health examination Marce Mcdaniels Other [employer] Other Start: 08-25-2022 Preoperative cardiovascular examination Julia Mcdaniels Other [employer] Other Start: 08-14-2022 End: 08-15-[address] ROMAN AMIN . Facility:[facility] Start: 08-05-2022 End: 08-05-2022 Admission to same day surgery center Anupam Quesada [facility] Start: 07-30-2022 End: 07-30-2022 ambulatory Chair 21 Sharmin Work Phone: Hematology/Oncology Comment on above: Secondary polycythem ia (Primary Dx) Polycythemia, second jc (Primary Dx) Start: 07-30-2022 End: 07-30-2022 Patient encounter procedure Margarita Taylor PA-C Work Phone: [facility] Start: 07-18-[address] Americo Walker II Facility: Start: 07-18-2022 End: 07-18-2022 Patient encounter procedure Anupam Quesada [facility] Start: 05-22-2022 End: 05-23-[address] ROMAN AMIN . Facility:[facility] Start: 01-23-2022 End: 01-24-[address] ROMAN AMIN . Facility:[facility] Start: 01-01-2022 End: 01-02-2022 ambulatory JANIS MAHAN . Facility:[facility] Start: 12-24-2021 End: 12-24-[address] ROMAN AMIN . Facility:[facility] Start: 06-04-2021 End: 06-04-2021 Subsequent hospital visit by physician [facility] Comment on above: Bilateral foot pain [M79.671, M79.672] Procedures Date Procedure Procedure Detail Performing Clinician Start: 05-01-2025 Radiologic examinati on knee 3 views Anupam Anand Pocos DO Work Phone: Start: 02-27-2025 Radiologic examinati on knee 3 views Anupam Anand Pocos DO Work Phone: Start: 01-31-2025 XR KNEE 1 OR 2 VIEWS LEFT Anupam Anand Pocos DO Work Phone: Start: 01-31-2025 [facility] [place] CAPILLARY GLUCO SE POC Anupam Anand Pocos DO Work Phone: Start: 01-31-2025 Total knee replacement Anupam Quesada Start: 01-12-2025 CT LOWER EXTREMITY W /O CONTRAST LEFT Anupam Anand Pocos DO Work Phone: Start: 01-12-2025 UA WITH CULT RFLX Anupam Anand Pocos DO Work Phone: Start: 01-05-2025 Ecg routine ecg w/le ast 12 lds w/i&r Maribeth Phipps MD Work Phone: Start: 01-04-2025 Radiologic examinati on knee 3 views Anupam Anand Pocos DO Work Phone: Start: 01-04-2025 Radiologic examinati on knee 3 views Anupam Anand Pocos DO Work Phone: Start: 11-09-2024 Arthrocentesis aspir &/inj major jt/bursa w/o us Anupam Anand Pocos DO Work Phone: Start: 11-09-2024 Radex shoulder compl ete minimum 2 views Anupam Anand Pocos DO Work Phone: Start: 10-26-2024 Arthrocentesis aspir &/inj major jt/bursa w/us Anupam Anand Pocos DO Work Phone: Start: 09-13-2024 Lipid 1996 panel - S giovanna or Plasma Maribeth Phipps MD Work Phone: Start: 07-11-2024 Injection of sacroil iac joint using fluoroscopic guidance [employer] Comment on above: Bilateral 95% relief Start: 03-29-2024 Radiofrequency ablat ion of medial branch of lumbar nerve using fluoroscopic guidance [employer] Comment on above: B/L L4/5, L5/S1 RFA- 20% relief x 4 weeks Start: 02-04-2024 Excision of cyst Staci Clipik Comment on above: upper and lower back Start: 02-04-2024 Removal of pilonidal cyst Ruben CHASE Start: 01-27-2024 Injection into facet joint of lumbar spine using fluoroscopic guidance [employer] Comment on above: 100% for 4hrs Start: 10-07-2023 Ecg routine ecg w/le ast 12 lds w/i&r Americo Rabago MD Work Phone: Start: 09-03-2022 Duplex scan of lower limb veins MD Julia Mcdaniels Work Phone: Start: 08-05-2022 Arthroplasty of knee Da vid Pocos Start: 06-04-2021 End: 06-04-2021 Radex calcaneus minimum 2 views Perla Foley DPM Work Phone: Start: 10-08-2016 History of operative procedure on knee S/P right knee yen tibial osteotomy and arthroscopic partial medial meniscectomy Chair [place]ney Work Phone: Arthroscopy of knee Julia Mcdaniels Work Phone: Comment on above: left; Cardioversion Ruben CHASE Excision of lipoma Julia Mcdaniels Work Phone: Excision of lipoma David Cao Excision of lipoma Anupam Poc os Osteotomy of tibia Anupam Poc os Radiofrequency ablat ion of medial branch of lumbar nerve using fluoroscopic guidance [email or web address] Repair of meniscus Julia Mcdaniels Work Phone: Repair of meniscus David Cao Screening for malign ant neoplasm of prostate Julia Mcdaniels Other Tear of meniscus of knee (disorder) Anupam Quesada Plan of Treatment Date Care Activity Detail Author Start: 04-09-2031 DTaP,Tdap and Td Vaccines (2 - Tdap) DTaP,Tdap and Td Vaccines (2 - Tdap) [facility] Start: 04-09-2031 DTaP/Tdap/Td Vaccine s (2 - Tdap) DTaP/Tdap/Td Vaccines (2 - Tdap) [facility] Start: 04-09-2031 Urine microalbumin profile [facility] Start: 09-13-2029 Lipid panel [facility] Start: 10-21-2027 Diabetes Screening Diabetes Screenin g [facility] Start: 09-13-2027 Diabetes mellitus screening Diabetes Screening [facility] Start: 09-13-2027 Diabetes Screening Diabetes Screenin g [facility] Start: 03-22-2027 Diabetes Screening Diabetes Screenin g [facility] Start: 2026 Diabetes Screening Diabetes Screenin g [facility] Start: 08-26-2026 Diabetes Screening Diabetes Screenin g [facility] Start: 04-22-2026 DIABETES SCREEN DIABETES SCREEN [facility] Start: 04-22-2026 Diabetes Screening Diabetes Screenin g [facility] Start: 08-30-2025 End: 08-30-2025 Patient encounter procedure 08/30/2025 12:45 PM EST Office Visit [facility] [address] [phone] Maribeth Phipps MD [address] [place] [id number] [facility] Start: 08-27-2025 DIABETES SCREEN DIABETES SCREEN [facility] Start: 07-31-2025 End: 07-31-2025 Patient encounter procedure 07/31/2025 10:00 AM EDT Office Visit [facility] [address] [place] [address] Anupam Quesada DO [address] [place] [address] [facility] Start: 06-12-2025 Influenza vaccination [facility] [place] [facility] Start: 05-26-2025 End: 11-26-2026 US Abdominal Aorta for screening Vascular US abdominal aorta anuerysm AAA screening Vascular Ultrasound Routine History of smoking Expected: 05/26/2025 (Approximate), Expires: 11/26/2026 [facility] Service Area Work Phone: Comment on above: Expected: 05/26/2025 (Approximate), Expires: 11/26/2026 Start: 05-26-2025 End: 11-26-2026 US.doppler Carotid arteries - bilateral Vascular US Carotid Artery Duplex Bilateral Vascular Ultrasound Routine Carotid stenosis, asymptomatic, bilateral Expected: 05/26/2025 (Approximate), Expires: 11/26/2026 [facility] Work Phone: Comment on above: Expected: 05/26/2025 (Approximate), Expires: 11/26/2026 Start: 05-26-2025 End: 11-26-2026 Vascular US ankle brachial index (MARJORIE) without exercise Vascular US ankle brachial index (MARJORIE) without exercise Vascular Ultrasound Routine PAD (peripheral artery disease) Expected: 05/26/2025 (Approximate), Expires: 11/26/2026 [facility] Work Phone: Comment on above: Expected: 05/26/2025 (Approximate), Expires: 11/26/2026 Start: 04-21-2025 Adult BMI Screening Adult BMI Screen ing [facility] Start: 04-21-2025 Tobacco Screening Tobacco Screening [facility] Start: 04-20-2025 End: 04-20-2025 Patient encounter procedure 04/20/2025 10:00 AM EDT Office Visit [facility] [place] [address] Sukumar Brewer MD [address], [address] [place] [address] [facility] Start: 04-07-2025 Patient referral [facility] Work Phone: Start: 02-27-2025 End: 02-27-2025 Patient encounter procedure 02/27/2025 9:30 AM EDT Office Visit [facility] [address] [place] [phone] Anupam Quesada, DO [address] [place], [place] [id number] [facility] Start: 01-20-2025 Adult BMI Screening Adult BMI Screen ing [facility] Start: 01-13-2025 Tobacco Screening Tobacco Screening [facility] Start: 01-12-2025 End: 01-04-2026 Urinalysis complete panel - Urine Urinalysis with reflex microscopic Lab Routine Preoperative testing Expected: 01/12/2025 (Approximate), Expires: 01/04/2026 [facility] Work Phone: Comment on above: Expected: 01/12/2025 (Approximate), Expires: 01/04/2026 Start: 12-14-2024 End: 12-14-2024 Patient encounter procedure [facility] Comment on above: Arrived Start: 11-09-2024 End: 11-09-2024 Patient encounter procedure 11/09/2024 1:45 PM EST Office Visit [facility] [address] [place] [phone] Anupam Quesada, DO [address] [place], [place] [id number] [facility] Start: 10-26-2024 End: 10-26-2024 Patient encounter procedure 10/26/2024 10:15 AM EST Office Visit [facility] [address] [place] [phone] Anupam Quesada, DO [address] [place] [address] Arrived SAÚL HERMAN Comment on above: Arrived Start: 10-25-2024 End: 10-25-2024 Patient encounter procedure Hematology Comment on above: OV and phleb therapeutic phleb Start: 10-19-2024 End: 01-18-2025 CBC W Auto Differential panel - Blood COMPLETE BLOOD COUNT AND DIFFERENTIAL Lab Routine Polycythemia, secondary Expected: 10/19/2024 (Approximate), Expires: 01/18/2025 [facility] Work Phone: Comment on above: Expected: 10/19/2024 (Approximate), Expires: 01/18/2025 Start: 10-19-2024 End: 01-18-2025 Comprehensive metabolic 2000 panel - Serum or Plasma COMPREHENSIVE METABOLIC PANEL Lab Routine Polycythemia, secondary Expected: 10/19/2024, Expires: 01/18/2025 [facility] Comment on above: Expected: 10/19/2024 , Expires: 01/18/2025 Start: 10-12-2024 Advance Directive Discussion Advance Directive Discussion [facility] Start: 09-14-2024 End: 09-14-2025 Hepatic function 2000 panel - Serum or Plasma Hepatic function panel Lab Routine Atrial fibrillation, currently in sinus rhythm High risk medication use Primary hypertension long term care pharmacist current use of anticoagulant therapy Hard of hearing Encounter to discuss test results Other hyperlipidemia Expected: 09/14/2024 (Approximate), Expires: 09/14/2025 [facility] Service Area Work Phone: Comment on above: Expected: 09/14/2024 (Approximate), Expires: 09/14/2025 Start: 09-14-2024 End: 09-14-2025 Lipid 1996 panel - Serum or Plasma Lipid panel Lab Routine Atrial fibrillation, currently in sinus rhythm High risk medication use Primary hypertension long term care pharmacist current use of anticoagulant therapy Hard of hearing Encounter to discuss test results Other hyperlipidemia Expected: 09/14/2024 (Approximate), Expires: 09/14/2025 [facility] Work Phone: Comment on above: Expected: 09/14/2024 (Approximate), Expires: 09/14/2025 Start: 06-24-2024 End: 06-24-2024 Patient encounter procedure 06/24/2024 2:30 PM EDT [facility] [address] [place] [address] Phlebotomy add on per [facility] Comment on above: Phlebotomy add on pe michelle Daigle Start: 06-24-2024 End: 06-24-2024 Follow-up encounter 06/24/2024 1:45 PM EDT Visit (SP) Office Hematology [address] [place] [address] Anselmo Mcpherson MD [address] [place] [id number] Follow up, High hemoglobin & hematocrit Hematology Comment on above: Follow up, High hemo globin & hematocrit Start: 06-12-2024 COVID-19 Vaccine ( season) COVID-19 Vaccine ( season) [facility] Start: 06-12-2024 Covid-19 Vaccine ( season) Covid-19 Vaccine ( season) [facility] Start: 06-12-2024 Covid-19 Vaccine ( season) Covid-19 Vaccine ( season) [facility] Start: 06-12-2024 Influenza vaccination [facility] Start: 04-21-2024 End: 04-21-2024 Patient encounter procedure 04/21/2024 8:30 AM EDT Office Visit [facility] [address] [place] [address] Sukumar Brewer MD [address], [address] [address] [facility] Start: 03-22-2024 End: 03-22-2024 Follow-up encounter Hematology/Oncology Comment on above: 2 month follow up po ssible Phlebotomy Start: 03-22-2024 End: 03-22-2024 Patient encounter procedure 03/22/2024 1:15 PM EDT Office Visit [facility] [address] [place] [address] [place] [address] 2 month follow up possible Phlebotomy [facility] Comment on above: 2 month follow up po ssible Phlebotomy Start: 02-28-2024 End: 05-29-2024 CBC W Auto Differential panel - Blood CBC + DIFF Lab Routine Polycythemia, secondary Low testosterone in male Expected: 02/28/2024 (Approximate), Expires: 05/29/2024 [facility] Work Phone: Comment on above: Expected: 02/28/2024 (Approximate), Expires: 05/29/2024 Start: 02-28-2024 End: 05-29-2024 Comprehensive metabolic 2000 panel - Serum or Plasma COMP METABOLIC PANEL Lab Routine Polycythemia, secondary Low testosterone in male Expected: 02/28/2024 (Approximate), Expires: 05/29/2024 [facility] Work Phone: Comment on above: Expected: 02/28/2024 (Approximate), Expires: 05/29/2024 Start: 01-21-2024 End: 01-20-2025 US Carotid arteries - bilateral Vas carotid duplex bilateral Vascular Ultrasound Routine Bilateral carotid artery stenosis Expected: 01/21/2024, Expires: 01/20/2025 [employer] Comment on above: Expected: 01/21/2024 , Expires: 01/20/2025 Start: 01-21-2024 End: 01-20-2025 US.doppler Extremity arteries - bilateral for physiologic artery study Vas art doppler lwr bilat mult lev/PVR Vascular Ultrasound Routine Claudication ([facility]) Expected: 01/21/2024, Expires: 01/20/2025 [employer] Work Phone: Comment on above: Expected: 01/21/2024 , Expires: 01/20/2025 Start: 01-21-2024 End: 01-21-2024 Patient encounter procedure 01/21/2024 8:40 AM EDT [facility] [address] [place] [address] Sukumar Brewer MD [address], [address] [address] [facility] Start: 01-12-2024 Patient referral [facility] Work Phone: Start: 12-19-2023 Adult BMI Screening Adult BMI Screen ing [facility] Start: 12-19-2023 Tobacco Screening Tobacco Screening [facility] Start: 11-04-2023 [facility] Start: 10-28-2023 End: 10-07-2025 Cardioversion External Cardioversion External Cardiac Services Routine Persistent atrial fibrillation (CMS/HCC) Expected: 10/28/2023 (Approximate), Expires: 10/07/2025 [facility] Service Area Work Phone: Comment on above: Expected: 10/28/2023 (Approximate), Expires: 10/07/2025 Start: 2023 Abdominal aortic aneurysm screening Abdominal Aortic Aneurysm (AAA) Screening [facility] Start: 2023 Advance Directive Discussion Advance Directive Discussion [facility] Start: 2023 Fall Risk Screening Fall Risk Screen ing [facility] Start: 2023 Pneumococcal Vaccine : 65+ (1 of 1 - PCV) Pneumococcal Vaccine: 65+ (1 of 1 - PCV) [facility] Start: 2023 Pneumococcal Vaccine : 65+ Years (1 - PCV) Pneumococcal Vaccine: 65+ Years (1 - PCV) [facility] Start: 2023 Pneumococcal Vaccine : 65+ Years (1 of 1 - PCV) Pneumococcal Vaccine: 65+ Years (1 of 1 - PCV) [facility] Start: 10-26-2023 End: 01-25-2024 CBC W Auto Differential panel - Blood CBC + DIFF Lab Routine Polycythemia, secondary Expected: 10/26/2023 (Approximate), Expires: 01/25/2024 [facility] Work Phone: Comment on above: Expected: 10/26/2023 (Approximate), Expires: 01/25/2024 Start: 10-26-2023 End: 08-26-2024 Ferritin [Mass/volume] in Serum or Plasma FERRITIN BLD Lab Routine Polycythemia, secondary Expected: 10/26/2023 (Approximate), Expires: 08/26/2024 [facility] Work Phone: Comment on above: Expected: 10/26/2023 (Approximate), Expires: 08/26/2024 Start: 10-26-2023 End: 08-26-2024 Iron and Iron binding capacity panel - Serum or Plasma IRON + TIBC Lab Routine Polycythemia, secondary Expected: 10/26/2023 (Approximate), Expires: 08/26/2024 [facility] Work Phone: Comment on above: Expected: 10/26/2023 (Approximate), Expires: 08/26/2024 Start: 10-14-2023 End: 10-14-2023 Clinical Support 10/14/2023 2:30 PM EST Clinical Support [facility] [address] [address] [facility] Start: 10-12-2023 Behavioral Health Screening Behavioral Health Screening [facility] Start: 10-12-2023 Depression Assessment Depression Ass essment [facility] Start: 08-23-2023 End: 10-23-2023 CBC W Auto Differential panel - Blood CBC + DIFF Lab Routine Polycythemia, secondary Expected: 08/23/2023 (Approximate), Expires: 10/23/2023 [facility] Work Phone: Comment on above: Expected: 08/23/2023 (Approximate), Expires: 10/23/2023 Start: 08-23-2023 End: 10-23-2023 Comprehensive metabolic 2000 panel - Serum or Plasma COMP METABOLIC PANEL Lab Routine Polycythemia, secondary Expected: 08/23/2023 (Approximate), Expires: 10/23/2023 [facility] Work Phone: Comment on above: Expected: 08/23/2023 (Approximate), Expires: 10/23/2023 Start: 08-23-2023 End: 04-22-2024 Ferritin [Mass/volume] in Serum or Plasma FERRITIN BLD Lab Routine Polycythemia, secondary Expected: 08/23/2023 (Approximate), Expires: 04/22/2024 [facility] Work Phone: Comment on above: Expected: 08/23/2023 (Approximate), Expires: 04/22/2024 Start: 08-23-2023 End: 04-22-2024 Iron and Iron binding capacity panel - Serum or Plasma IRON + TIBC Lab Routine Polycythemia, secondary Expected: 08/23/2023 (Approximate), Expires: 04/22/2024 [facility] Work Phone: Comment on above: Expected: 08/23/2023 (Approximate), Expires: 04/22/2024 Start: 06-12-2023 Covid-19 Vaccine () Covid-19 Vaccine () [facility] Start: 06-12-2023 Influenza vaccination [facility] Start: 04-18-2023 End: 06-18-2023 CBC W Auto Differential panel - Blood CBC + DIFF Lab Routine Polycythemia, secondary Expected: 04/18/2023 (Approximate), Expires: 06/18/2023 [facility] Work Phone: Comment on above: Expected: 04/18/2023 (Approximate), Expires: 06/18/2023 Start: 04-18-2023 End: 06-18-2023 Comprehensive metabolic 2000 panel - Serum or Plasma COMP METABOLIC PANEL Lab Routine Polycythemia, secondary Expected: 04/18/2023 (Approximate), Expires: 06/18/2023 [facility] Work Phone: Comment on above: Expected: 04/18/2023 (Approximate), Expires: 06/18/2023 Start: 12-30-2022 FUV, Provider: Americo Rabago, Status: Pen, Time: 11:30 AM FUV, Provider: Americo Rabago, Status: Pen, Time: 11:30 AM [facility] 250 DO Work Phone: Start: 12-25-2022 End: 02-24-2023 CBC W Auto Differential panel - Blood CBC + DIFF Lab Routine Polycythemia, secondary Expected: 12/25/2022 (Approximate), Expires: 02/24/2023 [facility] Work Phone: Comment on above: Expected: 12/25/2022 (Approximate), Expires: 02/24/2023 Start: 12-25-2022 End: 08-27-2023 Ferritin [Mass/volume] in Serum or Plasma FERRITIN BLD Lab Routine Polycythemia, secondary Expected: 12/25/2022 (Approximate), Expires: 08/27/2023 [facility] Work Phone: Comment on above: Expected: 12/25/2022 (Approximate), Expires: 08/27/2023 Start: 12-25-2022 End: 08-27-2023 Iron and Iron binding capacity panel - Serum or Plasma IRON + TIBC Lab Routine Polycythemia, secondary Expected: 12/25/2022 (Approximate), Expires: 08/27/2023 [facility] Work Phone: Comment on above: Expected: 12/25/2022 (Approximate), Expires: 08/27/2023 Start: 11-10-2022 EVENT KORTNEY, Provider : FAHAD SONI JUNIOR ELECTRICAL ENGINEER 1,[id number], Status: Pen, Time: 9:00 AM EVENT KORTNEY, Provider: FAHAD SONI JUNIOR ELECTRICAL ENGINEER 1,[id number], Status: Pen, Time: 9:00 AM [facility] 250 DO Work Phone: Start: 10-23-2022 Radionuclide myocard ial perfusion stress study NM valentín perf SPECT rest & str [facility] Start: 10-23-2022 SPECT Heart perfusio n at rest and W stress and W radionuclide IV [facility] Start: 10-23-2022 [facility] Start: 10-21-2022 DIABETES SCREEN DIABETES SCREEN [facility] Start: 10-12-2022 DEPRESSION ASSESSMENT DEPRESSION ASS ESSMENT [facility] Start: 09-03-2022 Duplex scan of lower limb veins US venous duplex LE RT [facility] Start: 07-30-2022 End: 09-29-2022 CBC W Auto Differential panel - Blood CBC + DIFF Lab Routine Polycythemia, secondary Expected: 07/30/2022, Expires: 09/29/2022 [facility] Work Phone: Comment on above: Expected: 07/30/2022 , Expires: 09/29/2022 Start: 07-30-2022 End: 09-29-2022 Comprehensive metabolic 2000 panel - Serum or Plasma COMP METABOLIC PANEL Lab Routine Polycythemia, secondary Expected: 07/30/2022, Expires: 09/29/2022 [facility] Work Phone: Comment on above: Expected: 07/30/2022 , Expires: 09/29/2022 Start: 06-12-2022 Influenza vaccination INFLUENZA (#1) [facility] Start: 10-19-2021 COVID-19 VACCINE (3 - Booster for Pfizer series) COVID-19 VACCINE (3 - Booster for Pfizer series) [facility] Start: 10-19-2021 COVID-19 VACCINE (3 - Pfizer series) COVID-19 VACCINE (3 - Pfizer series) [facility] Start: 10-12-2021 DEPRESSION ASSESSMENT DEPRESSION ASS ESSMENT [facility] Start: 2018 RSV High Risk: (Elde rly (60+) or Population) (1 - Risk 60-74 years 1-dose series) RSV High Risk: (Elderly (60+) or Population) (1 - Risk 60-74 years 1-dose series) [facility] Start: 2018 RSV Vaccine (1 - 1-d ose 60+ series) RSV Vaccine (1 - 1-dose 60+ series) [facility] Start: 2018 RSV Vaccine (1 - Ris k 60-74 years 1-dose series) RSV Vaccine (1 - Risk 60-74 years 1-dose series) [facility] Start: 2013 PROSTATE CANCER SCREENING DISCUSSION PROSTATE CANCER SCREENING DISCUSSION [facility] Start: 2013 Prostate specific antigen measurement Prostate Cancer Screening Discussion [facility] Start: 2008 Administration of varicella zoster vaccine Zoster (Shingles) Vaccine (1 of 2) [facility] Start: 2008 Pneumococcal vaccination Pneum ococcal Vaccine (1 of 1 - PCV) [facility] Start: 2008 Pneumococcal Vaccine : 50+ (1 of 1 - PCV) Pneumococcal Vaccine: 50+ (1 of 1 - PCV) [facility] Start: 2008 Pneumococcal Vaccine : 65+ Years (1 of 1 - PCV) Pneumococcal Vaccine: 65+ Years (1 of 1 - PCV) [facility] Start: 2008 Prostate specific antigen measurement PSA Prostate Cancer Screening [facility] Start: 2008 SHINGRIX VACCINE (1 of 2) SHINGRIX VACCINE (1 of 2) [facility] Start: 2008 Zoster Vaccines (1 of 2) Zoster Vacc césar (1 of 2) [facility] Start: 2003 COLOGUARD (FIT-DNA) COLOGUARD (FIT-D NA) [facility] Start: 2003 Colonoscopy COLONOSCOPY [facility] Start: 2003 COLORECTAL CANCER SCREENING COLORECTAL CANCER SCREENING [facility] Start: [address] COLONOGRAPHY [facility] Start: 2003 FECAL OCCULT BLOOD FECAL OCCULT BLOO D [facility] Start: 2003 Screening for malign ant neoplasm of colon [facility] Start: 2003 SIGMOIDOSCOPY SIGMOIDOSCOPY [facility] Start: 1993 Lipid 1996 panel - S giovanna or Plasma Lipid Screening [facility] Start: 1993 Lipid panel Lipid Screening [facility] Start: 1993 LIPID SCREEN LIPID SCREEN [facility] Start: 1976 Adult BMI Follow Up Plan Adult BMI F ollow Up Plan [facility] [place] [facility] Start: 1976 Anxiety Screening Anxiety Screening [facility] Start: 1976 Depression Screening Depression Scre ening [facility] Start: 1976 Diabetes mellitus screening Diabetes Screening [facility] Start: 1976 HEPATITIS C SCREENING HEPATITIS C [facility] Start: 1976 Hepatitis C screening Hepatitis C [facility] Start: 1976 HIV SCREENING HIV SCREENING [facility] Start: 1976 HIV screening HIV Screening [facility] Start: 1970 Depression Screening Depression Scre ening [facility] Start: 1959 MMR Vaccines (1 of 1 - Standard series) MMR Vaccines (1 of 1 - Standard series) [facility] Start: 1958 Abdominal aortic aneurysm screening Abdominal Aortic Aneurysm Screening [facility] Start: 1958 Annual wellness visit Welcome to Medicare Visit [facility] Start: 1958 HIV screening HIV Screening [facility] Start: 1958 Lipid panel Lipid Panel [facility] Start: 1958 Medicare Annual Well ness Visit [facility] Start: 1958 Screening for malign ant neoplasm of colon [facility] Start: 1958 Yearly Adult Physical [facility] WO contrast [facility] ECG 12 Lead ECG 12 Lead ECG Routine Persistent atrial fibrillation (CMS/HCC) 10/22/2023 9:01 AM EST [facility] Service Area Work Phone: ECG 12 Lead ECG 12 Lead ECG Routine Persistent atrial fibrillation (CMS/HCC) 10/26/2023 12:51 PM EST [facility] Work Phone: MR Brain WO contrast [facility] Patient referral [facility] Work Phone: XR Chest [address] [facility] XR Knee - left 3 Views XR knee 3 views left Imaging Routine History of total left knee replacement 05/01/2025 8:07 AM EDT [employer] Work Phone: XR Shoulder - right 2 Views XR shoulder 2+ views right Imaging Routine Right shoulder pain, unspecified chronicity 11/09/2024 11:29 AM EST [employer] Work Phone: [facility] [place] Immunizations Immunization Date Immunization Notes Care Provider Lina duarte 08-24-2021 Pfizer-BioNTech COVI D-19 Vacc 30 MCG/0.3ML Intramuscular Suspension Julia Mcdaniels Work Phone: [facility] [place] Comment on above: Result Comment: 2023: [id number] 08-03-2021 Pfizer-BioNTech COVI D-19 Vacc 30 MCG/0.3ML Intramuscular Suspension Julia Soliz Mcdaniels Work Phone: [facility] Comment on above: Result Comment: 2023: [id number] 04-09-2021 diphtheria, tetanus toxoids and pertussis vaccine Chair Sharmin Work Phone: [facility] Payers Date Payer Category Payer Medicare [id number] 2023 Medicare [id number] 2019 [facility] [id number] [id number]. 315 2019 [facility] [id number] 7.2.7.9.951335.257559. 315 2019 Unknown [id number] 2019 Unknown [id number]. 1.13.15 9.2.7.3.813093.315 1959 Self-pay [id number] 1959 Unknown [id number] 1958 Unknown [id number] 2.16.840.1.378225.3.57 9.2.593 1958 Unknown [id number] 2.16.840.1.723622.3.57 9.2.593 1958 Unknown [id number] 2.16.840.1.189862.3.57 9.2.593 1958 Unknown [id number] 2.16.840.1.376772.3.57 9.2.593 1958 Unknown [id number] 2..840.1.923095.3.57 9.2.593 1958 Unknown [id number] 2..840.1.175354.3.57 9.2.593 1958 Unknown [id number] 2.16.840.1.364909.3.57 9.2.593 1958 Unknown [id number] 2.16.840.1.051276.3.57 9.2.593 1958 Unknown [id number] 2.16.840.1.599944.3.57 9.2.356 1958 Unknown [id number] 2.16.840.1.256639.3.57 9.2.356 1958 Unknown [id number] 2.16.840.1.931304.3.57 9.2.356 1958 Unknown [id number] 2.16.840.1.190512.3.57 9.2.356 1958 Unknown [id number] 2.16.840.1.101242.3.57 9.2.356 1958 Unknown [id number] 2.16.840.1.526721.3.57 9.2.356 1958 Unknown [id number] 2.16.840.1.264815.3.57 9.2.356 1958 Unknown [id number] 2.16.840.1.815587.3.57 9.2.196 1958 Unknown [id number] 2.16.840.1.708507.3.57 9.2.196 1958 Unknown [id number] 2.16.840.1.935424.3.57 9.2.1286 1958 Unknown [id number] 2.16.840.1.092101.3.57 9.2.1286 1958 Unknown [id number] 2.16.840.1.568555.3.57 9.2.727 1958 Unknown [id number] 2.16.840.1.427841.3.57 9.2.727 1958 Unknown [id number] 2.16.840.1.350866.3.57 9.2.727 1958 Unknown [id number] 2.16.840.1.542405.3.57 9.2.727 1958 Unknown [id number] 2.16.840.1.420210.3.57 9.2.727 1958 Unknown [id number] 2.16.840.1.381793.3.57 9.2.727 1958 Unknown [id number] 2.16.840.1.588455.3.57 9.2.727 1958 Unknown [id number] 2.16.840.1.183266.3.57 9.2.727 1958 Unknown [id number] 2.16.840.1.380759.3.57 9.2.727 1958 Unknown [id number] 2.16.840.1.322433.3.57 9.2.72 1958 Unknown [id number] 2.16.840.1.335731.3.57 9.2.72 1958 Unknown [id number] 2.16.840.1.456947.3.57 9.2.72 1958 Unknown [id number] 2.16.840.1.471300.3.57 9.2.72 1958 Unknown [id number] 2.16.840.1.678066.3.57 9.272 1958 Unknown [id number] 2.16.840.1.819691.3.57 9.2.72 1958 Unknown [id number] 2.16.840.1.078170.3.57 9.2.72 1958 Unknown [id number] 2.16.840.1.368661.3.57 9.2.1245 1958 Unknown [id number] 2.16.840.1.427688.3.57 9.2.72 1958 Unknown [id number] 2.16.840.1.336990.3.57 9.2.72 1958 Unknown [id number] 2.16.840.1.227359.3.57 9.2.72 1958 Unknown [id number] 2.16.840.1.536278.3.57 9.2.72 1958 Unknown [id number] 2.16.840.1.268825.3.57 9.2.72 1958 Unknown [id number] 2.16.840.1.054865.3.57 9.2.1243 1958 Unknown [id number] 2.16.840.1.387533.3.57 9.2.1259 1958 Unknown [id number] 2.16.840.1.550486.3.57 9.2.1259 1958 Unknown [id number] 2.16.840.1.426643.3.57 9.2.1259 1958 Unknown [id number] 2.16.840.1.029455.3.57 9.2.125 1958 Unknown [id number] 2.16.840.1.553775.3.57 9.2.1259 1958 Unknown [id number] 2.16.840.1.554346.3.57 9.2.125 1958 Unknown [id number] 2.16.840.1.370554.3.57 9.2.1259 1958 Unknown [id number] 2.16.840.1.922543.3.57 9.2.1259 1958 Unknown [id number] 2.16.840.1.648691.3.57 9.2.1259 1958 Unknown [id number] 2.16.840.1.112856.3.57 9.2.1259 1958 Unknown [id number] 2.16.840.1.126433.3.57 9.2.1259 1958 Unknown [id number] 2.16.840.1.778249.3.57 9.2.1259 1958 Unknown [id number] 2.16.840.1.277146.3.57 9.2.1259 1958 Unknown [id number] 2.16.840.1.745040.3.57 9.2.1244 1958 Unknown [id number] 2.16.840.1.359897.3.57 9.2.1244 1958 Unknown [id number] 2..840.1.732728.3.57 9.2.1244 Unknown Ligia WILLOUGHBY/HELIO [id number] Unknown [id number] 2..840.1.349413.3.57 9.2.531 Social History Date Type Detail Facility Tobacco smoking status [facility] Start: 04-22-2023 End: 01-05-2025 Sex Assigned At Male [facility] Start: 07-18-2019 End: 05-18-2024 Tobacco smoking status NHIS Ex-smoker [facility] End: 10-12-1996 History of tobacco use Current smoker [facility] Start: 07-18-2019 End: 12-14-2024 Tobacco use and exposure Former smokeless tobacco user [facility] End: 09-12-2016 History of tobacco use Chews Tobacco [facility] Start: 07-30-2022 End: 05-26-2025 Alcohol intake Current drinker of alcohol (finding) [facility] Start: 09-12-2016 End: 08-27-2022 Tobacco Comment QUIT 15 YEARS AGO [facility] Start: 09-19-2016 [facility] Start: 1960 Sex Assigned At Male [facility] Start: 05-05-2021 End: 02-11-2025 Exposure to SARS-CoV-2 (event) Not sure [facility] History of tobacco use Passive smoker [facility] Start: 04-22-2023 End: 01-05-2025 Caffeine use Caffeine use [facility] Start: 06-16-2023 Adult Depression Screening Assessment 0 [facility] Start: 06-01-2021 Gender identity Identifies as male gender (finding) [facility] End: 10-12-1996 History of tobacco use Cigarette Smoker [facility] Work Phone: Start: 10-07-2023 End: 05-18-2024 Tobacco use and exposure Smokeless tobacco non-user [facility] Work Phone: Start: 1960 Sex Assigned At Not on file [facility] Work Phone: How often to you hav e a drink containing alcohol? 4 or more times a week [facility] How many standard drinks containing alcohol do you have on a typical day? 1 or 2 [facility] How often do you hav e 6 or more drinks on 1 occasion? Daily or almost daily [facility] Tobacco smoking stat us NHIS Unknown if ever smoked [facility] Work Phone: Start: 06-18-2021 End: 10-24-2024 Sex Male (finding) [facility] Start: 11-09-2024 Alcohol Comment Night cap before bed . [facility] Start: 12-18-2022 End: 04-07-2025 Tobacco smoking status NHIS Never smoked tobacco [facility] Start: 01-14-2024 End: 04-21-2024 Alcoholic beverage intake Ex-drinker (finding) [employer] [facility] Procedure Code Equipment Code Equipment Origin al Text Equipment Identifier Dates Graft Wedge Osiel ical [id number] Bone 2 Piece Allograft Freeze Dried High - [id number] Start: 10-08-2016 Comment on above: Description: HTO WED GE Ixo-Qj-I-Kind Implant - [id number] Start: 10-08-2016 Comment on above: Description: Cancell ous Screw, Titanium KNEE TOTAL ROBOT ARTHROPLASTY Anupam Quesada DO A 08/05/22 Non Biological Knee R [id number] [facility] Start: 08-05-2022 Plate, Tibial Ap Sloped Osteotomy [id number] Start: 10-08-2016 Comment on above: Description: PLATE, TIB AP SLOPED Suo-Mt-H-Kind Implant - [id number] Start: 10-08-2016 Comment on above: Description: Screw, Cortical Apg-No-V-Kind Implant - [id number] Start: 10-08-2016 Comment on above: Description: CORTICA L SCREW Cpx-Sr-E-Kind Implant - [id number] Start: 10-08-2016 Comment on above: Description: Cancell ous Screw, Titanium KNEE TOTAL ROBOT ARTHROPLASTY PocAnupam puente DO A 01/31/25 Unknown Knee L FDA Start: 01-31-2025 KNEE TOTAL ROBOT ARTHROPLASTY Pocos DO, Anupam Anand 01/31/25 Unknown Knee L FDA Start: 01-31-2025 KNEE TOTAL ROBOT ARTHROPLASTY Pocos DO, Anupam Anand 01/31/25 Unknown Knee L FDA Start: 01-31-2025 KNEE TOTAL ROBOT ARTHROPLASTY Pocos DO, Anupam Anand 01/31/25 Unknown Knee L FDA Start: 01-31-2025 KNEE TOTAL ROBOT ARTHROPLASTY Pocos DO, Anupam Anand 01/31/25 Unknown Knee L FDA Start: 01-31-2025 Functional Status Date Assessment Result Facility 01-12-2025 Functional Status No [facility] 10-19-2024 Functional Status N/A [facility] 07-25-2024 Functional Status N/A [facility] 07-11-2024 Functional Status N/A [facility] 06-10-2024 Functional Status N/A [facility] 04-29-2024 Functional Status N/A [facility] 03-29-2024 Functional Status N/A [facility] 02-12-2024 Functional Status N/A [facility] 01-29-2024 Functional Status N/A [facility] 01-28-2024 Functional Status N/A [facility] [place] 01-27-2024 Functional Status N/A [facility] 12-14-2023 Functional Status N/A [facility] 07-18-2022 Functional Status N/A [facility] Clinical Notes 11-12-2015 to 05-26-2025 Zohaib Borja MD - 05/26/2025 10:15 AM EDTCary Valerio - 05/01/2025 10:30 AM EDT Note Date & Type Note Facility 05-26-2025 History of Present illness Narrative [facility] Surgery [facility] Note CC: carotid/pad HPI: Eben Arenas is 64 y.o. male with history of smoking (quit many years ago), obesity, htn, hld, afib (on eliquis). He had was previously managed for PAD/carotid stenosis by another provider who has left the region. He is here to establish care. He reports limitation in walking mainly from knee pain and peripheral neuropathy. He has no calf cramping with walking, and no ulcers on his feet. He says he had a TIA many years ago, but has not had TIA or stroke symptoms in the past year at least. Medical History: has a past medical history of Abnormal ECG. Meds: Medications Ordered Prior to Encounter[1] Allergies: RX Allergies[2] SH: Social Drivers of Health Tobacco Use: Medium Risk (05/01/2025) Received from [facility] Patient History Smoking Tobacco Use: Former Smokeless Tobacco Use: Former Passive Exposure: Not on file Alcohol Use: Alcohol Misuse (06/17/2023) Received from [facility] AUDIT-C Q1: How often do you have a drink containing alcohol?: 4 or more times a week Q2: How many drinks containing alcohol do you have on a typical day when you are drinking?: 1 or 2 Q3: How often do you have six or more drinks on one occasion?: Daily or almost daily Financial Resource Strain: Not on file Food Insecurity: No Food Insecurity (04/21/2024) Received from [employer] [facility] Hunger Screening Within the past 12 months we worried whether our food would run out before we got money to buy more.: Never True Within the past 12 months the food we bought just didn't last and we didn't have money to get more.: Never True Transportation Needs: Not on file Physical Activity: Not on file Stress: Not on file Social Connections: Not on file Intimate Partner Violence: Not on file Depression: Not at risk (06/24/2024) Received from [facility] PHQ-2 PHQ-2 score: 0 Housing Stability: Not on file Utilities: Not on file Digital Equity: Not on file Health Literacy: Not on file FH: Family History[3] ROS: All systems were reviewed and are negative except as per HPI. Objective: Vitals: Vitals: 05/26/25 1010 BP: 130/70 Pulse: 59 Exam: In NAD, well appearing Abd Soft, ND/NT Vascular examination: Palpable radial pulses Feet are warm, no pulses, 2+ LE edema Assessment & Plan: Eben Arenas is 64 y.o. male with asymptomatic PAD, and carotid stenosis. He says he has not had AAA screening. I will order that as well as MARJORIE and carotid duplex to be done prior to next visit in one year. I spent a total of 60 minutes on the day of the visit. Zohaib Borja M.D. [1] Current Outpatient Medications on File Prior to Visit Medication Sig Dispense Refill apixaban (Eliquis) 5 mg tablet Take 1 tablet (5 mg) by mouth 2 times a day. 180 tablet 3 baclofen (Lioresal) 10 mg tablet Take 1 tablet (10 mg) by mouth 3 times a day as needed for muscle spasms. flecainide (Tambocor) 50 mg tablet 1 TABLET TWICE A DAY 180 tablet 3 lisinopriL-hydrochlorothiazide 20-12.5 mg tablet Take 1 tablet by mouth once daily. 90 tablet 3 magnesium oxide (Mag-Ox) 400 mg (241.3 mg magnesium) tablet 1 TABLET DAILY 90 tablet 3 metoprolol succinate XL (Toprol-XL) 25 mg 24 hr tablet 1 TABLET DAILY 90 tablet 3 rosuvastatin (Crestor) 5 mg tablet Take 1 tablet (5 mg) by mouth once daily. 90 tablet 3 Journavx 50 mg tablet Take 1 tablet (50 mg) by mouth if needed. (Patient not taking: Reported on 05/26/2025) No current facility-administered medications on file prior to visit. [2] Allergies Allergen Reactions Ativan [Lorazepam] Dizziness [3] Family History Family history unknown: Yes documented in this encounter [facility] Work Phone: 05-01-2025 History of Present illness Narrative Images from the original note were not included. Eben Arenas is a 64 y.o. male presents with chief complaint of left robotic assist total knee. HPI: Eben returns here today for repeat evaluation of his left knee. This is his three month check, doing well. He did have some flare of pain and difficulty on the right side, hip area and that is quieting down. He is going to see his primary care regarding aches and pains all over. He feels like he does have traveling arthritis. SUBJECTIVE: MEDICATIONS: Current Outpatient Medications Medication Instructions apixaban (ELIQUIS) 5 mg, 2 times daily baclofen (LIORESAL) 10 mg, As needed flecainide (Tambocor) 50 MG tablet 1 tablet, 2 times daily Journavx 50 mg, Oral, Every 12 hours, Take 2 tabs as loading dose followed by 1 tab every 12 hrs thereafter. lisinopril-hydroCHLOROthiazide 20-12.5 MG tablet magnesium oxide (Mag-Ox) 400 MG tablet 1 tablet, Daily RT metoprolol succinate XL (Toprol-XL) 25 MG 24 hr tablet 1 tablet, Daily RT rosuvastatin (CRESTOR) 5 mg, Daily RT ALLERGIES: Allergies Allergen Reactions Lorazepam Other Reaction(s): Other: See Comments, Unknown Other reaction(s): Other: See Comments [place] like he will pass out [place] like he will pass out Ezetimibe Other Reaction(s): Hives Ezetimibe-Simvastatin Lamotrigine Agitation Oxycodone Other Lethargic - Depressed SURGICAL HISTORY: Past Surgical History: Procedure Laterality Date IR ABLATION NERVE on back KNEE ARTHROPLASTY Right 07/2022 DAP KNEE ARTHROSCOPY W/ DEBRIDEMENT Bilateral KNEE ARTHROSCOPY W/ MENISCECTOMY Left 08/21/2014 KNEE ARTHROSCOPY W/ MENISCECTOMY Right 12/10/2015 LARGE JOINT ARTHROCENTESIS Left left shoulder SOFT TISSUE MASS EXCISION Right 03/03/2024 E/O STM R Shoulder DAP TOTAL KNEE ARTHROPLASTY Left 01/31/2025 L RA TKA DAP FAMILY HISTORY: Family History Problem Relation Name Age of Onset Alzheimer's disease Mother Cancer Father Beau Arenas COPD Father Beau Arenas SOCIAL HISTORY: Social History Tobacco Use Smoking status: Former Current packs/day: 1.50 Average packs/day: 1.5 packs/day for 20.0 years (30.0 ttl pk-yrs) Types: Cigarettes Smokeless tobacco: Former Types: Chew Vaping Use Vaping status: Never Used Substance Use Topics Alcohol use: Yes Alcohol/week: 7.0 standard drinks of alcohol Types: 7 Cans of beer per week Comment: Night cap before bed. Drug use: Never Depression: Not at risk (06/24/2024) Received from [facility] PHQ-2 PHQ-2 score: 0 REVIEW OF SYMPTOMS: The review of systems, history and current medications list are all reviewed today. OBJECTIVE: Visit Vitals Ht 5' 10 Wt 290 lb BMI 41.61 kg/m Smoking Status Former BSA 2.55 m Physical Exam His orthopedic exam here today reveals gentle arc of motion of both knees to be without difficulty. Both are fully stable. His neurocirculatory status is overall grossly intact. His pulses are otherwise brisk. Examination of the x-ray AP bilateral weight bearing, bilateral sunrise, left lateral knee total of five views with permanent images are saved to the record does show what appears to be well-fixed, well-aligned total knee arthroplasty bilaterally more of a revision type construct on the right. He does have some lateral tilt of the patellae bilaterally. No evidence of fracture or other osseous abnormality. ASSESSMENT AND PLAN: Assessment/Plan Status post left robotic assist total knee arthroplasty. The findings are discussed. We did recommend supportive care and advancement of all of his activities. He does voice understanding of this. He is counseled on antibiotic prophylaxis and metal detectors. We will see him back in three months for x-ray and recheck. He does inquire about an inversion table. We did explain that there is no contraindication, but we would recommend he try it in a short term initially to see how he does tolerate. He does voice understanding. All of his questions are otherwise answered this day. Cosigned by Anupam Quesada DO at 05/02/2025 3:50 PM EDT documented in this encounter [facility] 04-07-2025 Evaluation note Diagnosis Onset Date Resolution Atrial fibrillation and flutter acute April 07, 2025 1:18pm Hypertension acute April 07, 2 025 1:18pm Peripheral vascular disease, unspecified acute April 07, 2025 1:18pm Wellness examination acute April 07, 2025 1:18pm [facility] Work Phone: 1(760) 816-192006-27-2025 Hospital Discharge instructionsAmbulatory Orders* Referral to Vascular Surgery Time Frame: 04/07/25, Location: None Selected [facility] Work Phone: 1(247) 572-335305-19-2025 History of Present illness Narrative* Anupam Quesada DO - 02/27/2025 9:30 AM EDT Post op TKA 1st visit: The patient is seen and evaluated for the first visit, s/p total knee arthroplasty. Did well with the surgery. No anesthesia problems reported. Happy with the care provided by staff, physical therapyand our office. Pain is appropriately controlled. Denies chest pain or shortness of breath or palpit ations. Continues to be consistent and diligent with home exercise program as well as physical therapy modalities. Physical therapy reports are reviewed. Physical Exam: The total knee incision is clean, dry and intact. Mild swelling and warmth as expected. Has a stable arc of motion with near full extension. Stable flexion. Patellofemoral tracking is appropriate. Noinstability of the prosthesis throughout the arc of motion. Collateral ligaments are intact. No rash, infection or DVT. The calf is supple. Gait is assisted with stiffness with mild antalgia. Image Results: Xrays taken in the office today, 5 views including b/l AP weightbearing, b/l sunrise and lateral ofthe operative knee; saved to the permanent record, show stable position and alignment of the knee prosthesis. No sign of loosening or catastrophic wear. Well placed TKA on the right. Assessment: S/P total knee arthroplasty-first post-operative visit Treatment Plan: The nature of the findings were discussed at length. Ice, vitamin E oil massage techniques, stretching, physical therapy modalities will be continued and were reviewed. Discontinuance of the DVT prophylaxis that was used in the first four weeks. Resume any prexisting medications and blood thinners.He is on the Journavx. Continuance of physical therapy with progression to a home program. Fall precautions, with assistive device as needed. Follow up will be in three months for repeat x-ray and exam. Metal detectors are discussed. long term care pharmacist antibiotic prophylaxis for dental or invasive work werereviewed. Numerous questions were answered. The patient is discharged in stable condition. [id number] Evaluation + Plan note Extracted from: Title:ANES Post-operative Note---General Author: Dean Hunter MD Date:01/31/25 Plan Transfer/Discharge: Transfer/Discharge Discharge when meets criteria ( To home ). Extracted from: Title:ANES Pre-operative Note 2022 Author:Dean Hawthorne. Date:01/31/25 Plan [place] [employer] (ASA) physical status classification: Class III. Anesthetic Preoperative Plan: Anesthesia. Regional Spinal, and adductor canal block. [facility] 04-22-2025 Hospital Discharge instructions Patient Education 01/31/2025 11:15:26 Knee Cryocuff Patient Instructions - FT (CUSTOM) 01/31/2025 11:15:23 Post Op Patient Instructions - FT (CUSTOM) 01/31/2025 06:49:07 Pocos - Total Knee Arthroplasty. Revised 12/23/22. (Custom) [place], [place] [facility] DISCHARGE INSTRUCTIONS TOTAL KNEE ARTHROPLASTY INCISION CARE: Continue the daily dressing care to the knee as instructed in the hospital for 7 days postoperatively. The dressing will then be changed and worn an additional 7 days. You may then discontinue the dressing changes. Remove the dressing on the lower leg postoperative day #3 and leave this area open to the air. Please notify the office if any increase in redness, tenderness, drainage, fever, or wound separation is noted. MEDICATIONS: You may resume your home medications at the time of discharge. Pain medication as ordered. You may take up to 3,000 mg of acetaminophen (Tylenol) daily. Would suggest 650- 1,000 mg three times daily. Keflex (cephalexin) 500mg as prescribed. Start with the evening dose the day of surgery. Eliquis as prescribed. Start with the morning dose the day after surgery. Pain medication has been prescribed as well. [...] to six weeks as directed in Physical Therapy. This will be with the use of a walker or crutches initially. The Physical Therapist will help decide when to transition to a cane. Physical therapy as begun in the hospital will continue at home, possible with the web assistant of Home Health Physical Therapy or [...] OFFICE VISIT: 4 weeks postop. Anupam Quesada, DO [facility] [address] [place] [id number] Reviewed: 01-17 Revised 10/23 Follow Up Care 01/04/2025 10:35:25 With:DEBORAH Danielson Address: [address] [place] [address]- Business (1) When:02/27/2025 09:30:00 Comments:Appointment has already been scheduledCall for any problems. [facility] 04-22-2025 NoteProgress Note-Physician Patient: BEEN ARENAS Age: 64 years Sex: Male : 1960 Associated Diagnoses: None Author: Dale JAVIER, Dean Knight Postoperative Information Postoperative disposition: Postoperative disposition: To PACU. Optimetrix number: Optimetrix number [id number]. Anesthetic utilized: Regional: Spinal, ACB. Health Status Allergies: Allergic Reactions (Selected) Severity Not Documented Vytorin- Hives. Nonallergic Reactions (Selected) Severity Not Documented Ativan- Dizziness. LaMICtal- Agitation. Physical Examination Vital Signs 01/31/2025 11:19 EDT Respiratory Rate 18 br/min 01/31/2025 11:10 EDT Heart Rate Monitored 72 bpm 01/31/2025 11:10 EDT Respiratory Rate Monitored 16 br/min 01/31/2025 11:10 EDT SpO2 94 % 01/31/2025 11:10 EDT Systolic Blood Pressure 99 mmHg Diastolic Blood Pressure 63 mmHg 01/31/2025 11:10 EDT Temperature Temporal Artery 36.7 DegC Mean Arterial Pressure, Cuff 75 mmHg Pain Assessment: Controlled. General: Awake, Appropriate. Respiratory: Adequate air exchange. Cardiovascular: Stable. Neurological Assessment Anesthetic outcome No anesthetic complications noted. Adequate pain relief. Review / Management Condition: Stable. Plan Transfer/Discharge: Transfer/Discharge Discharge when meets criteria ( To home ).[facility]Result Comment: Electronically Signed By: Dale JAVIER, Dean Knight\.br\Date and Time Signed: 01/31/25 12:10 EDT 01-31-2025 NotePatient Education - Text [place], [place] [facility] DISCHARGE INSTRUCTIONS TOTAL KNEE ARTHROPLASTY INCISION CARE: Continue the daily dressing care to the knee as instructed in the hospital for 7 days postoperatively. The dressing will then be changed and worn an additional 7 days. You may then discontinue the dressing changes. Remove the dressing on the lower leg postoperative day #3 and leave this area open to the air. Please notify the office if any increase in redness, tenderness, drainage, fever, or wound separation is noted. MEDICATIONS: You may resume your home medications at the time of discharge. Pain medication as ordered. You may take up to 3,000 mg of acetaminophen (Tylenol) daily. Would suggest 650- 1,000 mg three times daily. Keflex (cephalexin) 500mg as prescribed. Start with the evening dose the day of surgery. Eliquis as prescribed. Start with the morning dose the day after surgery. Pain medication has been prescribed as well. [...] the hospital. [facility] Discharge Instructions for TKA Page 2 Physical Therapy Cont. Continue weight bearing, as ordered, to the operated knee for four to six weeks as directed in Physical Therapy. This will be with the use of a walker or crutches initially. The Physical Therapist will help decide when to transition to a cane. Physical therapy as begun in the hospital will continue at home, possible with the web assistant of Home Health Physical Therapy or [...] FOLLOW-UP OFFICE VISIT: 4 weeks postop. Anupam Quesada DO [facility] [address] [place] [address] Reviewed: 01-17 Revised 10/23[facility] NoteProgress Note-Physician Patient: EBEN ARENAS Age: 64 years Sex: Male : 1960 Associated Diagnoses: None Author: Anupam Quesada DO Postoperative Information Procedure: L RA TKA, complicated by morbid obesity Preoperative Diagnosis: L knee OA, Morbid obesity. Postoperative Diagnosis: same. Performed by: rafael. Senior Talent Management Consultant: lynn Mittal. Specimens Removed: bone, soft tissue. Prosthesis: Dinorah triathalon. . Estimated Blood Loss: 0 ml. Complications: None. Anesthesia type: Spinal, add canal block.[facility]:Result Comment: Electronically Signed By: Anupam Quesada DO\.br\Date and Time Signed: 01/31/25 10:33 [id number] NoteProgress Note-Physician Patient: EBEN ARENAS Age: 64 years Sex: Male : 1960 Associated Diagnoses: None Author: Dean Hunter MD Preoperative Information Anesthesia Preop Info: Time patient last ate or drank 01/31/2025 00:00:00. Anesthesia history: Patient history: None. Family history+: None. Informed consent: Signed by patient. Re-evaluation prior to induction: Initial evaluation reviewed: No significant change. Review of Systems Eye Ear/Nose/Mouth/Throat Respiratory: No shortness of breath, No cough. Cardiovascular: no orthopnea, PND, or edema, No chest pain, No palpitations, No tachycardia, No syncope. Gastrointestinal: No heartburn. Musculoskeletal Neurologic Health Status Allergies: Allergic Reactions (Selected) Severity Not Documented Vytorin- Hives. Nonallergic Reactions (Selected) Severity Not Documented Ativan- Dizziness. LaMICtal- Agitation., Allergies (3) Active Severity Reaction Ativan Dizziness LaMICtal Agitation Vytorin Hives Current medications: (Selected) Inpatient Medications Ordered Sodium Chloride 0.9% IV Aundrea 1000 mL 1,000 mL: 1,000 mL, IV, 150 mL/hr, Routine, Start date 256:00:00 EDT, 6.7 hour(s), Total volume (mL): 1,000, 131 kg, 2.55, m2 cefazolin additive + Sodium Chloride 0.9% intravenous solution 100 mL: 3 gram = 1 EA, Injection, IVPiggyback, PREOP, Routine, Start date 01/31/25 6:00:00 EDT, 200 mL/hr, Infuse over 30 minute(s) Prescriptions Prescribed Colace 100 mg Cap: 100 mg = 1 cap(s), Oral, BID, PRN for constipation, # 40 cap(s), Refills(s) 0, [facility]: [id number], 179, cm, 01/13/25 5:36:00 EDT, Height/Length Dosing, 131, kg, 01/13/25 5:36:00 EDT, Weight Dosing Keflex 500 mg Cap: 500 mg = 1 cap(s), Oral, TID, X 7 day(s), # 21 cap(s), Refills(s) 0, [facility]: [id number], 179, cm, 01/13/25 5:36:00 EDT, Height/Length Dosing, 131, kg, 01/13/25 5:36:00 EDT, Weight Dosing baclofen 10 mg Tab: 10 mg = 1 tab(s), Oral, Bedtime, PRN Spasm, # 30 tab(s), Refills(s) 0, [facility]: [id number], 179, cm, 01/13/25 5:36:00 EDT, Height/Length Dosing, 131, kg, 01/13/25 5:36:00 EDT, Weight Dosing oxyCODONE 5 mg Tab: 5 mg = 1 tab(s), Oral, As Directed, 1-2 po q4-6 hrs prn pain Dx: M17.12, Z96.652 Duration: 7days, # 40 tab(s), Refills(s) 0, [facility]: [id number], 179, cm, 01/13/25 5:36:00 EDT, Height/Length Dosing, 131, kg, 01/13/25 5:36:00 EDT, Weight Do... Documented Medications Documented Diurex Water Pills: PRN swelling, Refills(s) 0 Eliquis 5 mg oral tablet: 5 mg = 1 tab(s), Oral, BID, Refills(s) 0, Blood Thinner baclofen 10 mg Tab: 10 mg = 1 tab(s), Oral, Daily, PRN Pain, Refills(s) 0 flecainide 50 mg Tab: Oral, Refills(s) 0 hydrochlorothiazide-lisinopril 12.5 mg-20 mg Tab: 1 tab(s), Oral, Daily, High blood pressure magnesium oxide 400 mg Tab: Refills(s) 0 metoprolol succinate 25 mg ER Tab: 25 mg = 1 tab(s), Oral, Daily, Refills(s) 0, High blood pressure rosuvastatin 5 mg Tab: 5 mg = 1 tab(s), Oral, Daily, High cholesterol, Home Medications (12) Active baclofen 10 mg Tab 10 mg = 1 tab(s), PRN, Oral, Daily baclofen 10 mg Tab 10 mg = 1 tab(s), PRN, Oral, Bedtime Colace 100 mg Cap 100 mg = 1 cap(s), PRN, Oral, BID Diurex Water Pills , PRN Eliquis 5 mg oral tablet 5 mg = 1 tab(s), Oral, BID flecainide 50 mg Tab , Oral hydrochlorothiazide-lisinopril 12.5 mg-20 mg Tab 1 tab(s), Oral, Daily Keflex 500 mg Cap 500 mg = 1 cap(s), Oral, TID magnesium oxide 400 mg Tab metoprolol succinate 25 mg ER Tab 25 mg = 1 tab(s), Oral, Daily oxyCODONE 5 mg Tab 5 mg = 1 tab(s), Oral, As Directed rosuvastatin 5 mg Tab 5 mg = 1 tab(s), Oral, Daily , Medications (2) Active Scheduled: (1) ceFAZolin + Sodium Chloride 0.9% Minibag 100 mL 3 gram 1 EA, IV Piggyback, PREOP Continuous: (1) Sodium Chloride 0.9% 1,000 mL 1,000 mL, IV, 150 mL/hr PRN: (0) Problem list: All Problems Atrial fibrillation / SNOMED CT 94367580 / Confirmed Bilateral stenosis of carotid arteries / SNOMED CT 4221923572 / Confirmed Outside Source Comment: Last Assessment & Plan: Carotid duplex US BMI 40.0-44.9, adult / SNOMED CT 3948760143 / Confirmed Epidermal cyst / SNOMED CT 3345549532 / Confirmed Erectile dysfunction / SNOMED CT 1880100896 / Confirmed High iron content / SNOMED CT 142986255 / Confirmed History of transient ischemic attack / SNOMED CT 1078013129 / Confirmed HTN (hypertension) / SNOMED CT 4366140696 / Confirmed Hypercholesteremia / SNOMED CT 08968497 / Confirmed Hypercholesterolemia / SNOMED CT 65344566 / Confirmed Intermittent claudication / SNOMED CT 233689855 / Confirmed Outside Source Comment: Last Assessment & Plan: PVR, best medical therapy and exercise Localized osteoarthritis of knees, bilateral / SNOMED CT 0087974224 / Confirmed Lumbar spo (more content not included)...[facility] above:Result Comment: Electronically Signed By: Dale JAVIER, Dean Knight\.br\Date and Time Signed: 01/31/25 08:09 [id number] NotePatient Education - Text [place], [place] [facility] DISCHARGE INSTRUCTIONS TOTAL KNEE ARTHROPLASTY INCISION CARE: Continue the daily dressing care to the knee as instructed in the hospital for 7 days postoperatively. The dressing will then be changed and worn an additional 7 days. You may then discontinue the dressing changes. Remove the dressing on the lower leg postoperative day #3 and leave this area open to the air. Please notify the office if any increase in redness, tenderness, drainage, fever, or wound separation is noted. MEDICATIONS: You may resume your home medications at the time of discharge. Pain medication as ordered. You may take up to 3,000 mg of acetaminophen (Tylenol) daily. Would suggest 650- 1,000 mg three times daily. Keflex (cephalexin) 500mg as prescribed. Start with the evening dose the day of surgery. Eliquis as prescribed. Start with the morning dose the day after surgery. Pain medication has been prescribed as well. [...] the hospital. [facility] Discharge Instructions for TKA Page 2 Physical Therapy Cont. Continue weight bearing, as ordered, to the operated knee for four to six weeks as directed in Physical Therapy. This will be with the use of a walker or crutches initially. The Physical Therapist will help decide when to transition to a cane. Physical therapy as begun in the hospital will continue at home, possible with the web assistant of Home Health Physical Therapy or [...] OFFICE VISIT: 4 weeks postop. Anupam Quesada, DO [facility] [address] [place] [id number] Reviewed: 01-17 Revised 10/23[facility]03-[facility] History of Present illness Narrative* Maribeth Phipps MD - 01/05/2025 2:15 PM EDT Images from the original note were not included. Chief Complaint: Chief Complaint Patient presents with Pre-op Clearance Reason for visit per pt: Pre testing for surgery Patient was most recently seen by me in September 2024. Has history of atrial fibrillation/flutter, remains on long-term anticoagulation and is on high risk medication flecainide. Patient is here for POC. Has history of statin intolerance. At last office visit he was willing to try rosuvastatin 5 mgdaily. Patient scheduled for left knee surgery. Had right knee replacement July 2022 Subjective : Review of Systems Constitutional: Negative for chills, diaphoresis and fever. HENT: Negative. Negative for drooling, ear discharge, mouth sores and trouble swallowing. Eyes: Negative. Negative for discharge. Respiratory: Negative for choking and stridor. Cardiovascular: Interval review of systems is negative for chest discomfort pressure tightness heaviness palpitations lightheadedness orthopnea paroxysmal nocturnal dyspnea dependent edema or claudication TIA or CVAtype symptoms or bleeding diathesis Gastrointestinal: Negative for abdominal pain and vomiting. Endocrine: Negative. Negative for cold intolerance and heat intolerance. Genitourinary: Negative. Negative for hematuria. Musculoskeletal: Negative for joint swelling. Skin: Negative for pallor. Allergic/Immunologic: Negative. Negative for immunocompromised state. Neurological: Negative for syncope and speech difficulty. Hematological: Negative. Psychiatric/Behavioral: Negative for suicidal ideas. History so Far : 1. Atrial fibrillation/flutter, electrically cardioverted September 2023. 2. High risk medication-flecainide 3. Long-term anticoagulation 4. Primary hypertension 5. Mixed hyperlipidemia 6.SUQUAMISH 7. Lexiscan Myoview October 2022-no evidence of ischemia or prior myocardial infarction. LVEF 47%, transient ischemic dilatation ratio 1.2. 8. Echocardiogram October 2022-LVEF 60 to 65% grade 1 diastolic dysfunction, left atrial diameter 4cm, aortic root 3.9 cm, aortic and mitral sclerosis, no gross valvular abnormality. Objective Wt Readings from Last 3 Encounters: 01/05/25 131 kg (288 lb) 09/14/24 133 kg (294 lb) 05/18/24 131 kg (289 lb) Vitals: 01/05/25 1424 BP: 118/68 BP Location: Left arm Patient Position: Sitting Pulse: 56 Weight: 131 kg (288 lb) Height: 1.778 m (5' 10 ) Physical Exam: GENERAL APPEARANCE: in no acute distress. CHEST: Symmetric and non-tender. INTEGUMENT: Skin warm and dry HEENT: No gross abnormalities identified.No pallor or scleral icterus. NECK: Supple, no JVD, no bruit. NEURO/PSHCY: Alert and oriented x3; appropriate behavior and responses and responses LUNGS: Clear to auscultation bilaterally; normal respiratory effort. HEART: Rate and rhythm regular with no evident murmur; no gallop appreciated. ABDOMEN: Soft, non tender. MUSCULOSKELETAL: DJD left knee, status post right knee replacement EXTREMITIES: Warm There is no edema noted. Meds: Current Outpatient Medications Medication Instructions apixaban (ELIQUIS) 5 mg, oral, 2 times daily baclofen (LIORESAL) 10 mg, 3 times daily PRN flecainide (Tambocor) 50 mg tablet 1 TABLET TWICE A DAY lisinopriL-hydrochlorothiazide 20-12.5 mg tablet 1 tablet, oral, Daily magnesium oxide (Mag-Ox) 400 mg (241.3 mg magnesium) tablet 1 TABLET DAILY metoprolol succinate XL (Toprol-XL) 25 mg 24 hr tablet 1 TABLET DAILY rosuvastatin (CRESTOR) 5 mg, oral, Daily Allergies Allergen Reactions Ativan [Lorazepam] Dizziness LABS: CMP: Lab Results Component Value Date NA 139 09/13/2024 K 4.2 09/13/2024 CL 104 09/13/2024 CO2 26 09/13/2024 BUN 8 09/13/2024 CREATININE 0.91 09/13/2024 GLUCOSE 97 09/13/2024 CALCIUM 8.7 09/13/2024 Lipid Profile: Lab Results Component Value Date TRIG 123 09/13/2024 HDL 34.6 09/13/2024 LDLCALC 155 (H) 09/13/2024 Hemoglobin and hematocrit October 31 2517.854, platelets 1 73,000. Liver enzymes normal. Reviewed all available pertinent laboratory data and diagnostic testing results that occurred afterthe last office visit with me Assessment: 1. Primary hypertension 2. PAC (premature atrial contraction) 3. Atrial fibrillation, currently in sinus rhythm 4. Preop examination 5. Persistent atrial fibrillation (Multi) 6. Mixed hyperlipidemia 7. High risk medication use Clinical Decision Making: Patient has been maintaining sinus rhythm based on clinical history Based on prior evaluation, current clinical status, risk-benefit ratio favors proceeding with knee replacement as planned. Risk-benefit is favorable to interrupt anticoagulation for 2 days prior to surgery and resume as soon as feasible. Ongoing risk factor modification is recommended, will try low-dose rosuvastatin, with fasting liverand lipid profile in 3 to 4 months. Follow up : follow up as scheduled IKyle LPN am scribing for, and in the presence of Dr. Maribeth Phipps MD, FACC. I, Dr. Maribeth Phipps MD, FACC, personally performed the services described in the documentation as scribed by Kyle LOGAN in my presence, and confirm it is both accurate and complete. documented in this [facility] Work Phone: [phone]) 323-537203-27-2025 Instructions* Patient Instructions* Park Abraham LPN - 01/05/2025 2:15 PM EDT Continue same medications and treatments. Please bring any lab results from other providers / physicians to your next appointment. Please bring all medicines, vitamins, and herbal supplements with you when you come to the office. Prescriptions will not be filled unless you are compliant with your follow up appointments or have a follow up appointment scheduled as per instruction of your physician. Refills should be requested at the time of your visit. DID YOU KNOW: We have a pharmacy here in the [facility]. They can fill all prescriptions, not just cardiac medications. Prescriptions from other pharmacies can easily be transferred to the pharmacy by the pharmacist on site. pharmacies offer FREE HOME DELIVERY on medications to anywherein [place]. They can sync your medications. Typically prescriptions can be ready in 10 - 15 minutes. If pharmacy is unable to fill your prescription or if cost is more than your paying now the Pharmacist can easily transfer back to your Pharmacy of choice. Pharmacy phone # [phone]. documented in this [facility] Work Phone: [phone]) 786-769503-26-2025 History of Present illness Narrative* Cary Valerio - 01/04/2025 9:45 AM EDT Images from the original note were not included. GENERAL HISTORY AND PHYSICAL: NAME: Eben Arenas : 1960 CHIEF COMPLAINT: Follow up bilateral knee with left knee osteoarthritis, pain, status post right total knee. HISTORY OF PRESENT ILLNESS: This is a 64 y.o. male who presents for a pre-op H&P. Eben returnshere today for both his knees. The right knee is routine, states he is doing excellent. He reports no new or interval symptoms. The left knee has really escalated over the last interim. He is having increased pain and difficulty. We did treat this in the past. He has taken some narcotic that he states he keeps in a safe for situations like this. He does questions option for that knee. He denies any numbness or tingling. No fever. PAST MEDICAL HISTORY: Past Medical History: Diagnosis Date Arthritis Diabetes mellitus (CMS/HCC) Hypertension (CMS/HCC) Rotator cuff syndrome PAST SURGICAL HISTORY: Past Surgical History: Procedure Laterality Date IR ABLATION NERVE on back KNEE ARTHROPLASTY Right 07/2022 DAP KNEE ARTHROSCOPY W/ DEBRIDEMENT Bilateral KNEE ARTHROSCOPY W/ MENISCECTOMY Left 08/21/2014 KNEE ARTHROSCOPY W/ MENISCECTOMY Right 12/10/2015 LARGE JOINT ARTHROCENTESIS Left left shoulder SOFT TISSUE MASS EXCISION Right 03/03/2024 E/O STM R Shoulder DAP SOCIAL HISTORY: Social History Occupational History Not on file Tobacco Use Smoking status: Former Current packs/day: 1.50 Average packs/day: 1.5 packs/day for 20.0 years (30.0 ttl pk-yrs) Types: Cigarettes Smokeless tobacco: Former Types: Chew Vaping Use Vaping status: Never Used Substance and Sexual Activity Alcohol use: Yes Alcohol/week: 7.0 standard drinks of alcohol Types: 7 Cans of beer per week Comment: Night cap before bed. Drug use: Never Sexual activity: Not Currently Partners: Female control/protection: Abstinence ALLERGIES: Allergies Allergen Reactions Lorazepam Other Reaction(s): Other: See Comments, Unknown Other reaction(s): Other: See Comments [place] like he will pass out [place] like he will pass out Ezetimibe Other Reaction(s): Hives Ezetimibe-Simvastatin Lamotrigine Agitation MEDICATIONS: Current Outpatient Medications Medication Instructions apixaban (ELIQUIS) 5 mg, 2 times daily baclofen (LIORESAL) 10 mg, As needed flecainide (Tambocor) 50 MG tablet 1 tablet, 2 times daily lisinopril-hydroCHLOROthiazide 20-12.5 MG tablet magnesium oxide (Mag-Ox) 400 MG tablet 1 tablet, Daily RT metoprolol succinate XL (Toprol-XL) 25 MG 24 hr tablet 1 tablet, Daily RT rosuvastatin (CRESTOR) 5 mg, Daily RT REVIEW OF SYSTEMS: The review of systems, history and current medications list are all reviewed today. Vitals: Visit Vitals Ht 5' 10 Wt 290 lb BMI 41.61 kg/m Smoking Status Former BSA 2.55 m PHYSICAL EXAM: His orthopedic exam here today reveals gentle arc of motion of the right knee to be 0-115 degrees, fully stable. The calf and thigh are supple. On the left side, he does have a fixed varus with tenderness to palpation primarily medially. He does have a few degree flexion contracture.The knee is overall stable. His neurocirculatory status is intact. Examination of the hips internal and external rotation is without pain. X-rays AP bilateral weight bearing, bilateral sunrise and bilateral laterals of the knee total of six views with permanent images are saved to the record does show the well-fixed, well-aligned total knee arthroplasty on the right. No evidence of fracture, loosening or catastrophic wear. On the leftside, he does have advanced end stage osteoarthritis with bone on bone change, varus. The disease does appear to be tricompartmental overall. Surgical History and Physical: GENERAL AND PSYCHOLOGICAL: The patient is alert and oriented for age. HEAD AND E.E.N.T.: The skull is normocephalic. There is no mass or sign of trauma. NECK: The neck is supple. There is good range of motion. There is no mass or adenopathy appreciated. The thyroid is not enlarged. CARDIAC: The heart is regular. There is no murmur or ectopy appreciated. LUNGS: Inspiratory and expiratory excursions are symmetrical. The lung sprague are clear in all quadrants. ABDOMEN: The texture is soft. Bowel sounds are heard well in all quadrants. There is no tenderness to palpation. There is no organomegaly appreciated. OSTEOPATHIC AND STRUCTURAL: There is no gross evidence of kyphosis, lordosis, scoliosis, or apparent leg length discrepancy, with no acute tissue texture changes in sitting or standing positions. ASSESSMENT: Left knee osteoarthritis, severe, status post right total knee. Morbid obesity due to excessive calories. Chronic anticoagulation. PLAN: The findings are discussed. We did outline definitive management for the left knee as being that of total knee arthroplasty. After a lengthy discussion here today, he feels that that is the route that he would like to pursue. This does appear to be clinically indicated and cost effective. We did identify a date for him and did outline preoperative work up and risk assessment. We will obtaincomment from his biostatistics teacher regarding his Eliquis and a plan for this. He will obviously go back on that afterwards and that will be his DVT prophylaxis in addition. We did outline expectations, day of surgery, site verification, meeting with anesthesia. We did discuss canvas products sales representative in the OR. The nature of the findings were discussed at length. Total knee arthroplasty was reviewed at length. The patient has exhausted conservative management and has activities of daily living disruption as dictated above. The patient has attempted significant prolonged conservative care and is starting to have difficulty getting dressed, walking simple distances such as 20-30' and has significant night disruption the majority of the time. The patient has exhausted all conservative management as well as corticosteroid and [place] supplementation injections on numerous occasions. We discussed total knee replacements with the implants utilized, hospital course, rehab time and commitment, as well as time off work were all reviewed. The risks, benefits, complications, and reasonable expectations of this procedure were discussed. These include but are not limited to continued pain, dissat isfaction, antalgic gait, infection, infection requiring multiple surgeries with IV antibiotics with cement spacer, possible amputation, stiffness, stiffness requiring manipulation, bleeding, bleeding requiring transfusion, hematoma, wound dehiscence, nerve, vessel or tendon injury, foot drop, anesthesia complications, blood clot, pulmonary embolism, myocardial infarction, arrhythmia, stroke and were all reviewed. The potential for product recall or failure was discussed. The patient is aware that results cannot be guaranteed. halfway antibiotic prophylaxis with dental or invasive surgical work was discussed. We had a very lengthy discussion regarding the pros, cons, risks and benefits and reasonable expectations. The patient voices verbal understanding of which I am personally involved with the informed consent process. Consent forms are signed and witnessed. Numerous questionswere answered. Routine testing will be arranged and I will see the patient post operative for repeat x-ray and exam. Patient is discharged in stable condition. We did discuss the medical risks including cardiopulmonary, stroke, Covid, the flu. We will plan this in the outpatient setting with the [facility] program. This individual's risk profile is heightened across the board based upon his morbidobesity. We will use extended prophylaxis for this reason. This case will be complicated by the obesity. We did discuss his right knee. Routine care will be for that including discussion of antibiotic prophylaxis and metal detectors. All of his questions are otherwise answered. Follow up letter sent to Dr. Julia Mcdaniels. Anupam Quesada D.O. Cosigned by Anupam Quesada DO at 01/04/2025 4:25 PM EDT documented in this encounterSaint Louis University [id number] History of Present illness Narrative* Rolanda Sotelo MA - 11/09/2024 1:45 PM ESTAssociated Order(s): L Inj/Asp: R glenohumeral Post-Procedure Diagnose(s): Rotator cuff tear arthropathy of right shoulder L Inj/Asp: R glenohumeral on 11/09/2024 1:59 PM Indications: pain Details: 22 G needle Medications: 1 mL betamethasone acetate-betamethasone sodium phosphate 6 (3-3) MG/ML * Cary Valerio - 11/09/2024 1:45 PM EST Images from the original note were not included. Eben Arenas is a 64 y.o. male presents with chief complaint of right shoulder pain. HPI: Eben is a 64-year-old white male seen back here today for evaluation of his right shoulder. We have seen him for this previously. He denies any numbness or tingling. No new or interval symptoms. He has been advancing his activities. He is frustrated by this right shoulder and looking for any and all answers. The left shoulder did very well with cortisone. He states that he has not been able to move that shoulder like he is able to now and in quite some time. SUBJECTIVE: MEDICATIONS: Current Outpatient Medications Medication Instructions apixaban (ELIQUIS) 5 mg, 2 times daily baclofen (LIORESAL) 10 mg, As needed flecainide (Tambocor) 50 MG tablet 1 tablet, 2 times daily lisinopril-hydroCHLOROthiazide 20-12.5 MG tablet magnesium oxide (Mag-Ox) 400 MG tablet 1 tablet, Daily RT metoprolol succinate XL (Toprol-XL) 25 MG 24 hr tablet 1 tablet, Daily RT rosuvastatin (CRESTOR) 5 mg, Daily RT triamcinolone (Nasacort Allergy 24HR) 55 MCG/ACT nasal inhaler Administer into affected nostril(s) ALLERGIES: Allergies Allergen Reactions Lorazepam Other Reaction(s): Other: See Comments, Unknown Other reaction(s): Other: See Comments [place] like he will pass out [place] like he will pass out Ezetimibe Other Reaction(s): Hives Ezetimibe-Simvastatin Lamotrigine Agitation SURGICAL HISTORY: Past Surgical History: Procedure Laterality Date IR ABLATION NERVE on back KNEE ARTHROPLASTY Right 07/2022 DAP KNEE ARTHROSCOPY W/ DEBRIDEMENT Bilateral KNEE ARTHROSCOPY W/ MENISCECTOMY Left 08/21/2014 KNEE ARTHROSCOPY W/ MENISCECTOMY Right 12/10/2015 LARGE JOINT ARTHROCENTESIS Left left shoulder SOFT TISSUE MASS EXCISION Right 03/03/2024 E/O STM R Shoulder DAP FAMILY HISTORY: Family History Problem Relation Name Age of Onset Alzheimer's disease Mother Cancer Father Beau Arenas COPD Father Beau Arenas SOCIAL HISTORY: Social History Tobacco Use Smoking status: Former Current packs/day: 1.50 Average packs/day: 1.5 packs/day for 20.0 years (30.0 ttl pk-yrs) Types: Cigarettes Smokeless tobacco: Former Types: Chew Vaping Use Vaping status: Never Used Substance Use Topics Alcohol use: Yes Alcohol/week: 7.0 standard drinks of alcohol Types: 7 Cans of beer per week Comment: Night cap before bed. Drug use: Never Depression: Not at risk (06/24/2024) Received from [facility] PHQ-2 PHQ-2 score: 0 REVIEW OF SYMPTOMS: The review of systems, history and current medications list are all reviewed today. OBJECTIVE: Visit Vitals Ht 5' 10 Wt 282 lb BMI 40.46 kg/m Smoking Status Former BSA 2.51 m Physical Exam His orthopedic exam here today shows no gross malalignment or deformity. He does havethe tenderness to palpation. This is over the acromioclavicular joint down into the acromiohumeral interval. The neurocirculatory status is overall grossly intact to all distributions. Examination of the left shoulder reveals range of motion to be much improved. Cuff strength does appear to be grossly intact. He does have weakness of the right rotator cuff. Examination of the x-ray AP and lateral views of the right shoulder, total of two views with permanent images are saved to the record does show rather advanced osteoarthritis of the glenohumeral articulation. He does have acromioclavicular joint osteoarthritis. No evidence of fracture or other osseous abnormality. ASSESSMENT AND PLAN: Assessment/Plan Right shoulder osteoarthritis with likely rotator cuff tear arthropathy. The findings are discussed. The treatment options are outlined. He is inquiring about the corticosteroid injection here today. This does appear to be reasonable. He is injected with 1 cc of Betamethasone and 3 cc of 1% Lidocaine plain (6 mg of Betamethasone with 3 ml of 1% Lidocaine plain). He did tolerate the injection well under sterile prep. We will see him back here in one month for a recheckand review. All of his questions are otherwise answered at length. He is discharged in stable condition here today. Cosigned by Anupam Quesada DO at 11/11/2024 7:44 AM EST documented in this encounterSaint Louis University [id number] History of Present illness Narrative* Rolanda Sotelo MA - 10/26/2024 10:15 AM ESTAssociated Order(s): L Inj/Asp: L glenohumeral Post-Procedure Diagnose(s): Arthritis of left shoulder region L Inj/Asp: L glenohumeral on 10/26/2024 10:27 AM Indications: pain Details: 22 G needle, ultrasound-guided Medications: 1 mL betamethasone acetate-betamethasone sodium phosphate 6 (3-3) MG/ML * Cary Valerio - 10/26/2024 10:15 AM EST Images from the original note were not included. Eben Arenas is a 64 y.o. male presents with chief complaint of left shoulder pain. HPI: Eben is a 63-year-old white male here today for a new problem, that of left shoulder pain and difficulty. He states he did do some stretching with a wood post at the gym. The next day, he had severepain. He wound up in the Emergency Department on 10-19-2024 this is where he is diagnosed with arthritis. He was given oxycodone. He does present here today for further treatment, further evaluation,further instruction. SUBJECTIVE: MEDICATIONS: Current Outpatient Medications Medication Instructions apixaban (ELIQUIS) 5 mg, 2 times daily baclofen (LIORESAL) 10 mg, As needed flecainide (Tambocor) 50 MG tablet 1 tablet, 2 times daily lisinopril-hydroCHLOROthiazide 20-12.5 MG tablet magnesium oxide (Mag-Ox) 400 MG tablet 1 tablet, Daily RT metoprolol succinate XL (Toprol-XL) 25 MG 24 hr tablet 1 tablet, Daily RT rosuvastatin (CRESTOR) 5 mg, Daily RT tiZANidine (ZANAFLEX) 2 mg triamcinolone (Nasacort Allergy 24HR) 55 MCG/ACT nasal inhaler Administer into affected nostril(s) ALLERGIES: Allergies Allergen Reactions Lorazepam Other Reaction(s): Other: See Comments, Unknown Other reaction(s): Other: See Comments [place] like he will pass out [place] like he will pass out Ezetimibe Other Reaction(s): Hives Ezetimibe-Simvastatin Lamotrigine Agitation SURGICAL HISTORY: Past Surgical History: Procedure Laterality Date IR ABLATION NERVE on back KNEE ARTHROPLASTY Right 07/2022 DAP KNEE ARTHROSCOPY W/ DEBRIDEMENT Bilateral KNEE ARTHROSCOPY W/ MENISCECTOMY Left 08/21/2014 KNEE ARTHROSCOPY W/ MENISCECTOMY Right 12/10/2015 LARGE JOINT ARTHROCENTESIS Left left shoulder SOFT TISSUE MASS EXCISION Right 03/03/2024 E/O STM R Shoulder DAP FAMILY HISTORY: Family History Problem Relation Name Age of Onset Alzheimer's disease Mother Cancer Father COPD Father SOCIAL HISTORY: Social History Tobacco Use Smoking status: Former Types: Cigarettes Vaping Use Vaping status: Never Used Substance Use Topics Alcohol use: Yes Drug use: Never Depression: Not at risk (06/24/2024) Received from [facility] PHQ-2 PHQ-2 score: 0 REVIEW OF SYMPTOMS: The review of systems, history and current medications list are all reviewed today. OBJECTIVE: Visit Vitals Ht 5' 10 Wt 282 lb BMI 40.46 kg/m Smoking Status Former BSA 2.51 m Physical Exam His orthopedic exam here today does reveal the obesity unchanged. He is in no acute distress. He answers all questions appropriately. He does have some limitation in motion. He is againmuscular and large in stature. No significant crepitance. His neurocirculatory status is overall grossly intact and his pulses are brisk. Examination of the contralateral right shoulder also reveals some limitation. His neurocirculatory status is grossly intact. X-rays AP, lateral left shoulder from the Emergency Room does show severe osteoarthritis. He does have cystic change. He does appear to have some superior migration of the humeral head in relation tothe glenoid cavity. No evidence of fracture or other osseous abnormality. ASSESSMENT AND PLAN: Assessment/Plan Left shoulder osteoarthritis with likely flare, likely some aspect of rotator cuff tearing. Chronic anticoagulation. The findings are discussed. We did outline the options available to him including conservative versus surgical intervention. He is not interested in anything surgical. He does inquire about medication. We did discuss the five classes of medical pain management. He would be a candidate for anti-depression as well as neurogenics such as Neurontin or Pregabalin. He will talk to his primary care about this. We did discuss and offer corticosteroid injection. He does opt for that here today. He is injected with 1 cc of Betamethasone and 3 cc of 1% Lidocaine plain (6 mg of Betamethasone with 3 ml of1% Lidocaine plain) per the office protocol under sterile technique to the left shoulder. He did fern erate this well under sterile prep. We will ultimately see him back here in one month for a recheckand review. He does inquire about his right shoulder. We can look at that any point. He is inquiring about the possibility of an injection there. Follow up letter sent to his primary care physician. Cosigned by Anupam Quesada DO at 10/31/2024 7:34 AM EST documented in this encounterSaint Louis University [id number] History of Present illness Narrative* Mackenzie Hopson APRN.DIRECTOR OF ASSESSING - 10/25/2024 1:30 PM EST PATIENT NAME: Eben Arenas CLINIC NO.: [id number] ATTENDING PHYSICIAN: Anselmo Mcpherson MD DATE OF SERVICE: October 25, 2024 Some of the elements of this note have been copied from Anselmo Mcpherson MD's previous progress notedated 06/24/2024. All the information has been reviewed carefully. Dear Dr. APONTE here is an update on a follow up visit on male Eben Arenas at the clinic October 25, 2024 Diagnosis: 1. 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 Interval History: Eben Arenas is a 63 year old male here for follow up and consideration of phlebotomy. He takes his testosterone every 2 weeks. Overall he is doing well. He states he checks his hemoglobin at home and noticed it was elevated. He reports he was seen in the ED last week for pain in his left shoulder. He was found to have a rotator cuff tear. He was discharged with a medrol dose pack, muscle relaxer, and pain medicine. He was given a sling and will be seeing Ortho this week. He states he always feels so much better after phlebotomy. He states he can tell if he goes too long, he starts to feel like crap. He continues to follow with Cardiology for his Atrial fibrillation. He denies any chest pain or palpitations. Taking metoprolol and his rate has been regular. PAST MEDICAL HISTORY Diagnosis Date Former smoker HLD (hyperlipidemia) [place] (hard of hearing) HTN (hypertension) Long-term use of aspirin therapy OA (osteoarthritis) of knee Polycythemia S/P right knee arthroscopy TIA (transient ischemic attack) Social History Tobacco Use Smoking status: Former Passive exposure: Past Smokeless tobacco: Former Types: Chew Quit date: 09/12/2016 Tobacco comments: QUIT 15 YEARS AGO Vaping Use Vaping status: Never Used Substance Use Topics Alcohol use: Yes Comment: rare Drug use: No FAMILY HISTORY Problem Relation Age of Onset Lipids Mother Hypertension Mother Hypertension Father Lipids Father Past medical, social and family history reviewed without any changes. REVIEW OF SYSTEMS Full ROS elicited today and reported as negative, except as documented in Interval history. PHYSICAL EXAMINATION: BP 143/75 Pulse 60 Temp (Src) 97.7 (Oral) Wt 287 lb 13 oz (130.6kg) SpO2 95% Last 3 Encounter Wt Readings: Date: Wt: 10/25/2024 130.6 kg (287 lb 13 oz) 06/24/2024 130.2 kg (287 lb 0.6 oz) 03/22/2024 130 kg (286 lb 9.6 oz) General appearance:ECOG PERFORMANCE STATUS: 0- Fully active, able to carry on all pre-disease performance w/o restriction. Patient in NAD. Skin: Skin color, texture, turgor normal. No rashes or lesions. Eyes: Anicteric sclera. Pupils are equally round and reactive to light. Extraocular movements are intact. Lymph Nodes: No cervical, supraclavicular, axillary or inguinal adenopathy. Oropharynx: Lips, mucosa, and tongue normal. Lungs clear to auscultation, No wheezing or rhonchi Heart: RRR without murmur, gallop, or rubs. Abdomen soft, non-tender. No masses, organomegaly Muskl: limited ROM of left shoulder due to pain. Neuro: Gait and speech normal. Reflexes normal and symmetric. Muscular strength intact. Sensation grossly intact. LABS: Glucose (mg/dL) Date Value 10/21/2024 166 10/21/2019 Requisitioning entry error Potassium (mmol/L) Date Value 10/21/2024 4.3 10/21/2019 Requisitioning entry error Sodium (mmol/L) Date Value 10/21/2024 139 10/21/2019 Requisitioning entry error Chloride (mmol/L) Date Value 10/21/2024 104 10/21/2019 Requisitioning entry error CO2 (mmol/L) Date Value 10/21/2024 28 10/21/2019 Requisitioning entry error Creatinine (mg/dL) Date Value 10/21/2024 0.99 10/21/2019 Requisitioning entry error BUN (mg/dL) Date Value 10/21/2024 13 10/21/2019 Requisitioning entry error Anion Gap (mmol/L) Date Value 10/21/2024 7 10/21/2019 Requisitioning entry error Calcium (mg/dL) Date Value 10/21/2019 Requisitioning entry error Calcium, Total (mg/dL) Date Value 10/21/2024 9.3 Protein, Total (g/dL) Date Value 10/21/2024 6.8 10/21/2019 Requisitioning entry error Albumin (g/dL) Date Value 10/21/2024 4.1 10/21/2019 Requisitioning entry error Bilirubin, Total (mg/dL) Date Value 10/21/2024 0.9 10/21/2019 Requisitioning entry error Alkaline Phosphatase (U/L) Date Value 10/21/2024 75 10/21/2019 Requisitioning entry error AST (U/L) Date Value 10/21/2024 17 10/21/2019 Requisitioning entry error ALT (U/L) Date Value 10/21/2024 21 10/21/2019 Requisitioning entry error WBC Date Value Ref Range Status 10/21/2024 14.69 (H) 3.70 - 11.00 k/uL Final RBC Date Value Ref Range Status 10/21/2024 6.09 (H) 4.20 - 6.00 m/uL Final Hemoglobin Date Value Ref Range Status 10/21/2024 17.8 (H) 13.0 - 17.0 g/dL Final Hematocrit Date Value Ref Range Status 10/21/2024 53.9 (H) 39.0 - 51.0 % Final MCV Date Value Ref Range Status 10/21/2024 88.5 80.0 - 100.0 fL Final MCH Date Value Ref Range Status 10/21/2024 29.2 26.0 - 34.0 pg Final MCHC Date Value Ref Range Status 10/21/2024 33.0 30.5 - 36.0 g/dL Final RDW-CV Date Value Ref Range Status 10/21/2024 13.9 11.5 - 15.0 % Final Platelet Count Date Value Ref Range Status 10/21/2024 173 150 - 400 k/uL Final MPV Date Value Ref Range Status 10/21/2024 12.4 9.0 - 12.7 fL Final Abs Neut Date Value Ref Range Status 10/21/2024 12.72 (H) 1.45 - 7.50 k/uL Final Lymphocytes % Date Value Ref Range Status 10/21/2024 6.7 % Final Abs Lymph Date Value Ref Range Status 10/21/2024 0.98 (L) 1.00 - 4.00 k/uL Final Monocytes % Date Value Ref Range Status 10/21/2024 6.1 % Final Abs [place] Date Value Ref Range Status 10/21/2024 0.89 (H) <0.87 k/uL Final Abs Eosin Date Value Ref Range Status 10/21/2024 <0.03 <0.46 k/uL Final Basophils % Date Value Ref Range Status 10/21/2024 0.2 % Final Abs Baso Date Value Ref Range Status 10/21/2024 0.03 <0.11 k/uL Final PATH: Imaging: Abdominal ultrasound without any evidence of splenomegaly. Question gallbladder polyp versus stone. Assessment and Plan: Eben Arenas is a 63 year old male here for follow up. Secondary polycythemia, secondary to testosterone use. He will not stop testosterone understanding the potential complications. Based on previous discussion will phlebotomize if hemoglobin greater than 17.5. He does monitor his own hemoglobin at home as well. He will monitor labs and contact me with Hgb >17.5 - Hgb 17.8 today. - Okay to proceed with phlebotomy - patient aware to continue to monitor labs. Informed him to reach out with elevated Hgb and we will coordinate next phlebotomy session. Atrial fibrillation - normal rate and rhythm on assessment today - no issues since being started on Metoprolol - continues to follow with Cardiology. Tear of left rotator cuff - s/p treatment with medrol dose pack, muscle relaxer, and pain medicine - has appointment with Ortho this week. Patient verbalized understanding and was in agreement with plan of care. Mackenzie Hopson APRN-[facility] Hematology/Oncology Yunior Zepeda/[facility] CC: Julia Mcdaniels MD - (Active), In Basket (Inactive) - User (Inactive) [address] [facility] [id number] (Ph) documented in this encounterAultman [facility] NoteHNO ID: [id number] Author: MACKENZIE HOPSON APRN.CNP Service: ? Author Type: Nurse Practitioner Type: Progress Notes Filed: 10/25/2024 15:19 Note Text: PATIENT NAME: Eben Arenas CLINIC NO.: [id number] ATTENDING PHYSICIAN: Anselmo Mcpherson MD DATE OF SERVICE: October 25, 2024 Some of the elements of this note have been copied from Anselmo Mcpherson MD's previous progress note dated 06/24/2024. All the information has been reviewed carefully. Dear Dr. APONTE here is an update on a follow up visit on male Eben Arenas at the clinic October 25, 2024 Diagnosis: 1. 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 Interval History: Eben Arenas is a 63 year old male here for follow up and consideration of phlebotomy. He takes his testosterone every 2 weeks. Overall he is doing well. He states he checks his hemoglobin at home and noticed it was elevated. He reports he was seen in the ED last week for pain in his left shoulder. He was found to have a rotator cuff tear. He was discharged with a medrol dose pack, muscle relaxer, and pain medicine. He was given a sling and will be seeing Ortho this week. He states he always feels so much better after phlebotomy. He states he can tell if he goes too long, he starts to feel like crap. He continues to follow with Cardiology for his Atrial fibrillation. He denies any chest pain or palpitations. Taking metoprolol and his rate has been regular. PAST MEDICAL HISTORY Diagnosis Date Former smoker HLD (hyperlipidemia) [place] (hard of hearing) HTN (hypertension) Long-term use of aspirin therapy OA (osteoarthritis) of knee Polycythemia S/P right knee arthroscopy TIA (transient ischemic attack) Social History Tobacco Use Smoking status: Former Passive exposure: Past Smokeless tobacco: Former Types: Chew Quit date: 09/12/2016 Tobacco comments: QUIT 15 YEARS AGO Vaping Use Vaping status: Never Used Substance Use Topics Alcohol use: Yes Comment: rare Drug use: No FAMILY HISTORY Problem Relation Age of Onset Lipids Mother Hypertension Mother Hypertension Father Lipids Father Past medical, social and family history reviewed without any changes. REVIEW OF SYSTEMS Full ROS elicited today and reported as negative, except as documented in Interval history. PHYSICAL EXAMINATION: BP 143/75 Pulse 60 Temp (Src) 97.7 (Oral) Wt 287 lb 13 oz (130.6kg) SpO2 95% Last 3 Encounter Wt Readings: Date: Wt: 10/25/2024 130.6 kg (287 lb 13 oz) 06/24/2024 130.2 kg (287 lb 0.6 oz) 03/22/2024 130 kg (286 lb 9.6 oz) General appearance:ECOG PERFORMANCE STATUS: 0- Fully active, able to carry on all pre-disease performance w/o restriction. Patient in NAD. Skin: Skin color, texture, turgor normal. No rashes or lesions. Eyes: Anicteric sclera. Pupils are equally round and reactive to light. Extraocular movements are intact. Lymph Nodes: No cervical, supraclavicular, axillary or inguinal adenopathy. Oropharynx: Lips, mucosa, and tongue normal. Lungs clear to auscultation, No wheezing or rhonchi Heart: RRR without murmur, gallop, or rubs. Abdomen soft, non-tender. No masses, organomegaly Muskl: limited ROM of left shoulder due to pain. Neuro: Gait and speech normal. Reflexes normal and symmetric. Muscular strength intact. Sensation grossly intact. LABS: Glucose (mg/dL) Date Value 10/21/2024 166 10/21/2019 Requisitioning entry error Potassium (mmol/L) Date Value 10/21/2024 4.3 10/21/2019 Requisitioning entry error Sodium (mmol/L) Date Value 10/21/2024 139 10/21/2019 Requisitioning entry error Chloride (mmol/L) Date Value 10/21/2024 104 10/21/2019 Requisitioning entry error CO2 (mmol/L) Date Value 10/21/2024 28 10/21/2019 Requisitioning entry error Creatinine (mg/dL) Date Value 10/21/2024 0.99 10/21/2019 Requisitioning entry error BUN (mg/dL) Date Value 10/21/2024 13 10/21/2019 Requisitioning entry error Anion Gap (mmol/L) Date Value 10/21/2024 7 10/21/2019 Requisitioning entry error Calcium (mg/dL) Date Value 10/21/2019 Requisitioning entry error Calcium, Total (mg/dL) Date Value 10/21/2024 9.3 Protein, Total (g/dL) Date Value 10/21/2024 6.8 10/21/2019 Requisitioning entry error Albumin (g/dL) Date Value 10/21/2024 4.1 10/21/2019 Requisitioning entry error Bilirubin, Total (mg/dL) Date Value 10/21/2024 0.9 10/21/2019 Requisitioning entry error Alkaline Phosphatase (U/L) Date Value 10/21/2024 75 10/21/2019 Requisitioning entry error AST (U/L) Date Value 10/21/2024 17 10/21/2019 Requisitioning entry error ALT (U/L) Date Value 10/21/2024 21 10/21/2019 Requisitioning entry error WBC Date Value Ref Range Status 10/21/2024 14.69 (H) 3.70 - 11.00 k/uL Final RBC Date Value Ref Range St (more content not included)...[facility] 10-19-2024 Hospital Discharge instructions Patient Education 10/19/2024 16:17:33 Rotator Cuff Tear Rotator Cuff Tear A rotator cuff tear is a partial or complete tear of the cord-like bands (tendons) that connect muscle to bone in the rotator cuff. The rotator cuff is a group of muscles and tendons that surround the shoulder joint and keep the upper arm bone (humerus) in the shoulder socket. The tear can occur suddenly (acute tear) or can develop over a long period of time (chronic tear). What are the causes? Acute tears may be caused by: A fall, especially on an outstretched arm. Lifting very heavy objects with a jerking motion. Chronic tears may be caused by overuse of the muscles. This may happen in sports, physical work, oractivities in which your arm repeatedly moves over your head. What increases the risk? This condition is more likely to occur in: Athletes and workers who frequently use their shoulder or reach over their head. This may include activities such as: ?Tennis. ?Baseball and softball. ?Swimming and rowing. ?Weight lifting. ?Construction work. ?Painting. People who smoke. Older people who have arthritis or poor blood supply. These can make the muscles and tendons weaker. What are the signs or symptoms? Symptoms of this condition depend on the type and severity of the injury: An acute tear may include a sudden tearing feeling, followed by severe pain that goes from your upper shoulder, down your arm, and toward your elbow. A chronic tear includes a gradual weakness and decreased shoulder motion as the pain gets worse. The pain is usually worse at night. Both types may have symptoms such as: Pain that spreads (radiates) from the shoulder to the upper arm. Swelling and tenderness in front of the shoulder. Decreased range of motion. Pain when: ?Reaching, pulling, or lifting the arm above the head. ?Lowering the arm from above the head. Not being able to raise your arm out to the side. Difficulty placing the arm behind your back. How is this diagnosed? This condition is diagnosed with a medical history and physical exam. Imaging tests may also be done, including: X-rays. MRI. Ultrasound. CT or MR arthrogram. During this test, a contrast material is injected into your shoulder, and thenimages are taken. How is this treated? Treatment for this condition depends on the type and severity of the condition. In less severe cases, treatment may include: Rest. This may be done with a sling that holds the shoulder still (immobilization). Your health care provider may also recommend avoiding activities that involve lifting your arm over your head. Icing the shoulder. Anti-inflammatory medicines, such as aspirin or ibuprofen. Strengthening and stretching exercises. Your health care provider may recommend specific exercises to improve your range of motion and strengthen your shoulder. In more severe cases, treatment may include: Physical therapy. Steroid injections. Surgery. Follow these instructions at home: Managing pain, stiffness, and swelling If directed, put ice on the injured area. To do this: ?If you have a removable sling, remove it as told by your health care provider. ?Put ice in a plastic bag. ?Place a towel between your skin and the bag. ?Leave the ice on for 20 minutes, 2 3 times a day. ?Remove the ice if your skin turns bright red. This is very important. If you cannot feel pain, heat, or cold, you have a greater risk of damage to the area. Raise (elevate) the injured area above the level of your heart while you are lying down. Find a comfortable sleeping position or sleep on a recliner, if available. Move your fingers often to reduce stiffness and swelling. Once the swelling has gone down, your health care provider may direct you to apply heat to relax the muscles. Use the heat source that your health care provider recommends, such as a moist heat pack or a heating pad. ?Place a towel between your skin and the heat source. ?Leave the heat on for 20 30 minutes. ?Remove the heat if your skin turns bright red. This is especially important if you are unable to feel pain, heat, or cold. You have a greater risk of getting burned. If you have a sling: Wear the sling as told by your health care provider. Remove it only as told by your health care provider. Loosen the sling if your fingers tingle, become numb, or turn cold and blue. Keep the sling clean. If the sling is not waterproof: ?Do not let it get wet. ?Cover it with a watertight covering when you take a bath or a shower. Activity Rest your shoulder as told by your health care provider. Return to your normal activities as told by your health care provider. Ask your health care provider what activities are safe for you. Ask your health care provider when it is safe to drive if you have a sling on your arm. Do any exercises or stretches as told by your health care provider. General instructions Take [id number] and prescription medicines only as told by your health care provider. Do not use any products that contain nicotine or tobacco, such as cigarettes, e- cigarettes, and chewing tobacco. If you need help quitting, ask your health care provider. Keep all follow-up visits. This is important. Contact a health care provider if: Your pain gets worse. You have new pain in your arm, hands, or fingers. Medicine does not help your pain. Get help right away if: Your arm, hand, or fingers are numb or tingling. Your arm, hand, or fingers are swollen or painful or they turn white or blue. Your hand or fingers on your injured arm are colder than your other hand. Summary A rotator cuff tear is a partial or complete tear of the cord-like bands (tendons) that connect muscle to bone in the rotator cuff. The tear can occur suddenly (acute tear) or can develop over a long period of time (chronic tear). Treatment generally includes rest, anti-inflammatory medicines, and icing. In some cases, physical therapy and steroid injections may be needed. In severe cases, surgery may be needed. This information is not intended to replace advice given to you by your health care provider. Make sure you discuss any questions you have with your health care provider. Document Revised: 01/30/2021 Document Reviewed: 01/30/2021 [employer] Patient Education 2023 Staff Ranker. Follow Up Care 10/19/2024 14:14:16 With:Anupam Quesada Address: [address] [place] [phone] Business (1) When:10/22/2024 16:00:20 With:JULIA MCDANIELS Address: [address] [place], [place] [id number] Business (1) When:Within 3 Day(s) [facility] 01-08-2025 NoteED Patient Education Note Orthopedics Rotator Cuff Tear A rotator cuff tear is a partial or complete tear of the cord-like bands (tendons) that connect muscle to bone in the rotator cuff. The rotator cuff is a group of muscles and tendons that surround the shoulder joint and keep the upper arm bone (humerus) in the shoulder socket. The tear can occur suddenly (acute tear) or can develop over a long period of time (chronic tear). What are the causes? Acute tears may be caused by: ??? A fall, especially on an outstretched arm. ??? Lifting very heavy objects with a jerking motion. Chronic tears may be caused by overuse of the muscles. This may happen in sports, physical work, oractivities in which your arm repeatedly moves over your head. What increases the risk? This condition is more likely to occur in: ??? Athletes and workers who frequently use their shoulder or reach over their head. This may include activities such as: ? Tennis. ? Baseball and softball. ? Swimming and rowing. ? Weight lifting. ? Construction work. ? Painting. ??? People who smoke. ??? Older people who have arthritis or poor blood supply. These can make the muscles and tendons weaker. What are the signs or symptoms? Symptoms of this condition depend on the type and severity of the injury: ??? An acute tear may include a sudden tearing feeling, followed by severe pain that goes from yourupper shoulder, down your arm, and toward your elbow. ??? A chronic tear includes a gradual weakness and decreased shoulder motion as the pain gets worse. The pain is usually worse at night. Both types may have symptoms such as: ??? Pain that spreads (radiates) from the shoulder to the upper arm. ??? Swelling and tenderness in front of the shoulder. ??? Decreased range of motion. ??? Pain when: ? Reaching, pulling, or lifting the arm above the head. ? Lowering the arm from above the head. ??? Not being able to raise your arm out to the side. ??? Difficulty placing the arm behind your back. How is this diagnosed? This condition is diagnosed with a medical history and physical exam. Imaging tests may also be done, including: ??? X-rays. ??? MRI. ??? Ultrasound. ??? CT or MR arthrogram. During this test, a contrast material is injected into your shoulder, and then images are taken. How is this treated? Treatment for this condition depends on the type and severity of the condition. In less severe cases, treatment may include: ??? Rest. This may be done with a sling that holds the shoulder still (immobilization). Your healthcare provider may also recommend avoiding activities that involve lifting your arm over your head. ??? Icing the shoulder. ??? Anti-inflammatory medicines, such as aspirin or ibuprofen. ??? Strengthening and stretching exercises. Your health care provider may recommend specific exercises to improve your range of motion and strengthen your shoulder. In more severe cases, treatment may include: ??? Physical therapy. ??? Steroid injections. ??? Surgery. Follow these instructions at home: Managing pain, stiffness, and swelling ??? If directed, put ice on the injured area. To do this: ? If you have a removable sling, remove it as told by your health care provider. ? Put ice in a plastic bag. ? Place a towel between your skin and the bag. ? Leave the ice on for 20 minutes, 2?3 times a day. ? Remove the ice if your skin turns bright red. This is very important. If you cannot feel pain, heat, or cold, you have a greater risk of damage to the area. ??? Raise (elevate) the injured area above the level of your heart while you are lying down. ??? Find a comfortable sleeping position or sleep on a recliner, if available. ??? Move your fingers often to reduce stiffness and swelling. ??? Once the swelling has gone down, your health care provider may direct you to apply heat to relax the muscles. Use the heat source that your health care provider recommends, such as a moist heat pack or a heating pad. ? Place a towel between your skin and the heat source. ? Leave the heat on for 20?30 minutes. ? Remove the heat if your skin turns bright red. This is especially important if you are unable to feel pain, heat, or cold. You have a greater risk of getting burned. If you have a sling: ??? Wear the sling as told by your health care provider. Remove it only as told by your health careprovider. ??? Loosen the sling if your fingers tingle, become numb, or turn cold and blue. ??? Keep the sling clean. ??? If the sling is not waterproof: ? Do not let it get wet. ? Cover it with a watertight covering when you take a bath or a shower. Activity ??? Rest your shoulder as told by your health care provider. ??? Return to your normal activities as told by your health care provider. Ask your health care provider what (more content not included)...[facility]01-08-2025 Evaluation + Plan noteExtracted from: Title:ED Note Author:Merry GRIFFIN, Josh Carrero te:10/19/24 Left shoulder pain (M25.512: Pain in left shoulder) Rotator cuff tear, left (M75.102: Unspecified rotator cuff tear or rupture of left shoulder, not specified as traumatic) Orders: acetaminophen-oxycodone, 1 tab(s), Oral, q6hr for 3 day(s), 12 tab(s), Refill(s) 0, [id number], 177, cm, 10/19/24 14:21:00 EST, Height/Length Dosing, 126.2, kg, 10/19/24 14:21:00 EST, Weight Dosing ketorolac, 30 mg = 1 mL, Injection, IntraMuscular, Once, Stop date 10/19/24 15:58:00 EST, STAT, Start date 10/19/24 15:58:00 EST, 10/19/24 15:58:00 EST methylPREDNISolone, = 1 packet(s), Oral, As Directed, as directed on package labeling, X 6 day(s), # 21 tab(s), Refills(s) 0, Pharmacy: [id number], 177, cm, 10/19/24 14:21:00 EST, Height/Length Dosing, 126.2, kg, 10/19/24 14:21:00 EST, Weight Dosing morphine, 4 mg = 1 mL, Injection, IntraMuscular, Once, Stop date 10/19/24 15:57:00 EST, STAT, Start date 10/19/24 15:57:00 EST, 10/19/24 15:57:00 EST tizanidine, 2 mg = 1 tab(s), Oral, q8hr, X 7 day(s), # 21 tab(s), Refills(s) 0, Pharmacy: [id number], 177, cm, 10/19/24 14:21:00 EST, Height/Length Dosing, 126.2, kg, 10/19/24 14:21:00 EST, Weight Dosing Sling Apply XR Shoulder Complete Left [facility] [id number] Telephone encounter Note* Telephone Encounter - Nkechi Cool - 10/17/2024 4:17 PM EST Called patient and scheduled OV and phlebotomy next week [facility]01-06-2025 Miscellaneous Notes* Telephone Encounter - Nkechi Cool - 10/17/2024 4:17 PM EST Called patient and scheduled OV and phlebotomy next week * Telephone Encounter - Luh Hernandes - 10/17/2024 2:37 PM EST Left patient a VM to schedule OV and phlebotomy next available. * Telephone Encounter - Melissa Loredo RN - 10/17/2024 2:24 PM EST Pt calling to report that he has high hbg and needs phlebotomy scheduled. NEEDS: OV Dr Mcpherson or [facility] and phlebotomy next available [phone] (home) Please call with appt [facility] Telephone encounter Note * Telephone Encounter - Luh Hernandes - 10/17/2024 2:37 PM EST Left patient a VM to schedule OV and phlebotomy next available. [facility]01-06-2025 Telephone encounter Note* Telephone Encounter - Melissa Loredo RN - 10/17/2024 2:24 PM EST Pt calling to report that he has high hbg and needs phlebotomy scheduled. NEEDS: OV Dr Mcpherson or [facility] and phlebotomy next available [phone] (home) Please call with appt [facility]12-04-2024 History of Present illness Narrative* Maribeth Phipps MD - 09/14/2024 12:30 PM EST Past medical history is as noted below ,most recently seen by me May 2024. Subjective : Interval review of systems is negative for chest discomfort pressure tightness heaviness palpitations lightheadedness orthopnea paroxysmal nocturnal dyspnea dependent edema or claudication TIA or CVAtype symptoms or bleeding diathesis Patient now feels that his muscle cramping was not related to statins but probably to dehydration, and he would be willing to try statins again. History so Far : 1. Atrial fibrillation/flutter 2. High risk medication-flecainide 3. Long-term anticoagulation 4. Primary hypertension 5. Mixed hyperlipidemia 6.SUQUAMISH Objective Wt Readings from Last 3 Encounters: 09/14/24 133 kg (294 lb) 05/18/24 131 kg (289 lb) 05/03/24 130 kg (286 lb) Vitals: 09/14/24 1223 BP: 128/68 BP Location: Left arm Patient Position: Sitting Pulse: 65 Weight: 133 kg (294 lb) Height: 1.778 m (5' 10 ) Physical Exam: Hard of hearing GENERAL APPEARANCE: in no acute distress. CHEST: Symmetric and non-tender. INTEGUMENT: Skin warm and dry HEENT: No gross abnormalities identified.No pallor or scleral icterus. NECK: Supple, no JVD, no bruit. NEURO/PSHCY: Alert and oriented x3; appropriate behavior and responses and responses LUNGS: Clear to auscultation bilaterally; normal respiratory effort. HEART: Rate and rhythm regular with no evident murmur; no gallop appreciated. ABDOMEN: Soft, non tender. MUSCULOSKELETAL: No gross deformities. EXTREMITIES: Warm There is no edema noted. Meds: Current Outpatient Medications Medication Instructions apixaban (ELIQUIS) 5 mg, oral, 2 times daily baclofen (LIORESAL) 10 mg, 3 times daily PRN flecainide (Tambocor) 50 mg tablet 1 TABLET TWICE A DAY lisinopriL-hydrochlorothiazide 20-12.5 mg tablet 1 tablet, Daily magnesium oxide (Mag-Ox) 400 mg (241.3 mg magnesium) tablet 1 TABLET DAILY metoprolol succinate XL (Toprol-XL) 25 mg 24 hr tablet 1 TABLET DAILY Allergies Allergen Reactions Ativan [Lorazepam] Dizziness LABS: Lab Results Component Value Date CHOL 214 (H) 09/13/2024 TRIG 123 09/13/2024 HDL 34.6 09/13/2024 NA 139 09/13/2024 K 4.2 09/13/2024 CL 104 09/13/2024 CREATININE 0.91 09/13/2024 BUN 8 09/13/2024 CO2 26 09/13/2024 LDL cholesterol 155 hemoglobin 18.4 hematocrit 56 Patient Active Problem List Diagnosis Date Noted Hard of hearing 09/14/2024 Encounter to discuss test results 09/14/2024 Atrial fibrillation, currently in sinus rhythm 05/18/2024 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 Atrial fibrillation, currently in sinus rhythm Follow Up In Cardiology 2. High risk medication use Follow Up In Cardiology 3. Primary hypertension Follow Up In Cardiology 4. halfway current use of anticoagulant therapy Follow Up In Cardiology 5. Statin intolerance Follow Up In Cardiology 6. Hard of hearing 7. Encounter to discuss test results From a cardiac perspective patient is doing well Blood pressure is at target No evidence of bleeding, remains on high risk medication Reviewed laboratory data to include comprehensive profile CBC lipid profile LDL cholesterol 155 Patient is willing to try statins again. Will start with rosuvastatin 5 mg daily and check fasting liver and lipid profile in 4 months. Follow up : 1 year Provider Attestation - Scribe documentation All medical record entries made by the Scribe were at my direction and personally dictated by me. Tamera reviewed the chart and agree that the record accurately reflects my personal performance of the history, physical exam, discussion and plan. [facility] Work Phone: 1(795) 393-862612-04-2024 Instructions* Patient Instructions* Park Abraham LPN - 09/14/2024 12:30 PM EST Start crestor 5mg take one tab daily Have repeat labs in 4 months Please bring any lab results from other providers / physicians to your next appointment. Please bring all medicines, vitamins, and herbal supplements with you when you come to the office. Prescriptions will not be filled unless you are compliant with your follow up appointments or have a follow up appointment scheduled as per instruction of your physician. Refills should be requested at the time of your visit. DID YOU KNOW: We have a pharmacy here in the [facility]. They can fill all prescriptions, not just cardiac medications. Prescriptions from other pharmacies can easily be transferred to the pharmacy by the pharmacist on site. pharmacies offer FREE HOME DELIVERY on medications to anywherein [place]. They can sync your medications. Typically prescriptions can be ready in 10 - 15 minutes. If pharmacy is unable to fill your prescription or if cost is more than your paying now the Pharmacist can easily transfer back to your Pharmacy of choice. Pharmacy phone # [phone]. Scribe Attestation By signing my name below, I, Kyle LOGAN , [employer] attest that this documentation has been prepared under the direction and in the presence of Maribeth Phipps MD. documented in this [facility] Work Phone: [phone]) 903-351010-23-2024 History of Present illness Narrative* Cary Estrellaoney - 08/03/2024 1:15 PM EDT Images from the original note were not included. Eben Arenas is a 63 y.o. male presents with chief complaint of low back pain. HPI: Eben is a 63-year-old white male who presents with some left sided low back pain. He states that this has been about a week or 10 days. He was doing some dumbbell shrugs with 60 pounds. He states that this is not a lot for him. He did notice this thereafter. He has seen Dr. Cao. He did have a block to the sacroiliac joint in the past. He is a little bit of a poor historian regarding all of this discussion here today. The block was on 07-11-2024 so this does predate his episode. He states that he frequently does activities such as lifting 405 pounds. SUBJECTIVE: MEDICATIONS: Current Outpatient Medications Medication Instructions apixaban (ELIQUIS) 5 mg, 2 times daily baclofen (LIORESAL) 10 mg, As needed flecainide (Tambocor) 50 MG tablet 1 tablet, 2 times daily lisinopril-hydroCHLOROthiazide 20-12.5 MG tablet magnesium oxide (Mag-Ox) 400 MG tablet 1 tablet, Daily RT metoprolol succinate XL (Toprol-XL) 25 MG 24 hr tablet 1 tablet, Daily RT predniSONE (Deltasone) 10 MG tablet As directed orally - Take 6 tabs day 1 and 2, 5 tabs day 3 and 4, 4 tabs day 5 and 6, 3 tabs day 7 and 8, 2 tabs day 9 and 10, and 1 tab day 11 and 12. triamcinolone (Nasacort Allergy 24HR) 55 MCG/ACT nasal inhaler Administer into affected nostril(s) ALLERGIES: Allergies Allergen Reactions Lorazepam Other Reaction(s): Other: See Comments, Unknown Other reaction(s): Other: See Comments [place] like he will pass out [place] like he will pass out Ezetimibe Other Reaction(s): Hives Ezetimibe-Simvastatin Lamotrigine Agitation SURGICAL HISTORY: Past Surgical History: Procedure Laterality Date IR ABLATION NERVE on back KNEE ARTHROPLASTY Right 07/2022 DAP KNEE ARTHROSCOPY W/ DEBRIDEMENT Bilateral KNEE ARTHROSCOPY W/ MENISCECTOMY Left 08/21/2014 KNEE ARTHROSCOPY W/ MENISCECTOMY Right 12/10/2015 LARGE JOINT ARTHROCENTESIS Left left shoulder SOFT TISSUE MASS EXCISION Right 03/03/2024 E/O STM R Shoulder DAP FAMILY HISTORY: Family History Problem Relation Name Age of Onset Alzheimer's disease Mother Cancer Father COPD Father SOCIAL HISTORY: Social History Tobacco Use Smoking status: Former Types: Cigarettes Vaping Use Vaping status: Never Used Substance Use Topics Alcohol use: Yes Drug use: Never Depression: Not at risk (06/24/2024) Received from [facility] PHQ-2 PHQ-2 score: 0 REVIEW OF SYMPTOMS: The review of systems, history and current medications list are all reviewed today. OBJECTIVE: Visit Vitals Ht 5' 10 Wt 282 lb BMI 40.46 kg/m Smoking Status Former BSA 2.51 m Physical Exam His orthopedic exam does reveal the morbid obesity. He is in no acute distress. He answers all questions appropriately. His exam of the low back reveals focal rather severe tenderness right over the left sacroiliac joint. He has nothing on the right, maybe a little bit of paraspinal tenderness. His neurocirculatory status is grossly intact. Bench test is tight bilaterally. Patellar and Achilles deep tendon reflexes are 1/4 and symmetric. He does have the replaced right knee which is stable. X-rays AP and lateral views of the lumbar spine total of two views with permanent images are saved to the record does show an L4 on 5 grade I spondylolisthesis. He does have degenerative disc and degenerative joint change throughout most pronounced at the L5-S1 level. He has calcification of the vas culature. No evidence of fracture or instability pattern otherwise. ASSESSMENT AND PLAN: Assessment/Plan Lumbar degenerative disc and degenerative joint disease with left sacroiliitis. Morbid obesity. Chronic anticoagulation. The findings are discussed. He is started on the office tapering dose prednisone schedule. We did recommend he get back to pain management for an evaluation of this as obviously this has been delineated as a problem for him in the past. We did discuss cause and effect relationship with what he is doing. We did offer therapy which it does not sound like he has had for this. He does decline that here today. All of his questions are otherwise answered this day. Follow up letter sent to Dr. Julai Mcdaniels. Cosigned by Anupam Quesada DO at 08/08/2024 7:26 AM EDT documented in this encounterSaint Louis University [id number] Evaluation + Plan note Extracted from: Title:Pain Managment Follow up Author:Staci Ruano Date:07/25/24 Impression and Plan Patient is a 63-year-old male following up today after undergoing bilateral sacroiliac joint injections gave him significant relief. Prior to that bilateral medial branch RFA also gave him significant relief. Between these 2 injections he is feeling well. He is doing well. He is comfortable. He is happy. He does not have any pain or complaints. He does not have any concerns. He is no longer using the baclofen. He will call if he requires anything from our services. Otherwise he would like to follow-up as needed. GIAN score: 4%. [facility] 10-14-2024 NoteConsultation Note Patient: EBEN ARENAS Age: 63 years Sex: Male : 1960 Associated Diagnoses: None Author: Staci Kevin PA-C Subjective Chief complaint 07/25/2024 11:19 EDT back pain . Patient is a 63-year-old male. He presents today for follow-up after undergoing bilateral sacroiliac joint injections. This was done on 07/11/2024 and gave 95% relief. He is doing well. He is feeling well. He is comfort. He is happy. Prior to that he underwent bilateral medial branch RFA covering the L4-S1 facet joints. He had this done in March and he got 50% relief. He feels that this time, things are going well between the 2 treatments. He has pain that is a 1/10 but he states that overall, heis comfortable and happy. He has the baclofen on hand but he is no longer using this. He is pleased. Health Status Allergies: Allergic Reactions (Selected) Severity Not Documented Vytorin- Hives. Nonallergic Reactions (Selected) Severity Not Documented Ativan- Dizziness. LaMICtal- Agitation., Allergies (3) Active Severity Reaction Ativan Dizziness LaMICtal Agitation Vytorin Hives Current medications: (Selected) Documented Medications Documented Diurex Water Pills: PRN swelling, Refills(s) 0 Eliquis 5 mg oral tablet: 5 mg = 1 tab(s), Oral, BID, Refills(s) 0 METOPROLOL SUCCINATE ER 25 MG TB24: METOPROLOL SUCCINATE ER 25 MG TB24, Daily Nasacort Allergy 24HR nasal spray: 1 spray(s), Nasal, Daily Allergy symptoms, Refill(s) 0 baclofen 10 mg Tab: 10 mg = 1 tab(s), Oral, Daily, PRN Pain, Refills(s) 0 flecainide 50 mg Tab: Refills(s) 0 magnesium oxide 400 mg Tab: Refills(s) 0 triamcinolone Top 0.1% Crm 15 gram: Refill(s) 0 Problem list: All Problems High iron content / SNOMED CT 328492611 / Confirmed Localized osteoarthritis of knees, bilateral / SNOMED CT 7771056363 / Confirmed Hypercholesteremia / SNOMED CT 12681205 / Confirmed Type 2 diabetes mellitus / SNOMED CT 285526421 / Confirmed Erectile dysfunction / SNOMED CT 1388616092 / Confirmed Hypercholesterolemia / SNOMED CT 86598687 / Confirmed Lumbar spondylosis / SNOMED CT 692108979 / Confirmed Morbid obesity / SNOMED CT 598846212 / Confirmed Peripheral vascular disease / SNOMED CT 4321817462 / Confirmed Platelet disorder / SNOMED CT 90577654 / Confirmed Seasonal allergic rhinitis / SNOMED CT 733267388 / Confirmed Secondary polycythemia / SNOMED CT 593011199 / Confirmed HTN (hypertension) / SNOMED CT 4610327252 / Confirmed BMI 40.0-44.9, adult / SNOMED CT 0771975526 / Confirmed Bilateral stenosis of carotid arteries / SNOMED CT 2788570015 / Confirmed Outside Source Comment: Last Assessment & Plan: Carotid duplex US Intermittent claudication / SNOMED CT 029629347 / Confirmed Outside Source Comment: Last Assessment & Plan: PVR, best medical therapy and exercise History of transient ischemic attack / SNOMED CT 2857652986 / Confirmed Atrial fibrillation / SNOMED CT 36339306 / Confirmed Epidermal cyst / SNOMED CT 6826328015 / Confirmed Resolved: History of TIAs / SNOMED CT 1405486076 Resolved: Hypertension / SNOMED CT 5428793968 Objective Vital Signs 07/25/2024 11:19 EDT Peripheral Pulse Rate 60 bpm Respiratory Rate 15 br/min Systolic Blood Pressure 134 mmHg Diastolic Blood Pressure 74 mmHg Mean Arterial Pressure, Cuff 94 mmHg General: Alert and oriented, No acute distress. Eye: Normal conjunctiva. HENT: Normocephalic, Normal hearing. Cardiovascular: No edema. Musculoskeletal Normal range of motion. Normal strength. 5/5 strength Integumentary: Warm, Dry, [place]. Neurologic: Alert, Oriented. Psychiatric: Cooperative, Appropriate mood & affect. 14 point review of systems was negative unless otherwise noted. Impression and Plan Patient is a 63-year-old male following up today after undergoing bilateral sacroiliac joint injections gave him significant relief. Prior to that bilateral medial branch RFA also gave him significant relief. Between these 2 injections he is feeling well. He is doing well. He is comfortable. He is happy. He does not have any pain or complaints. He does not have any concerns. He is no longer usingthe baclofen. He will call if he requires anything from our services. Otherwise he would like to follow-up as needed. GIAN score: 4%.[facility]:Result Comment: Electronically Signed By: Staci Kevin PA-C\.br\Date and Time Signed: 07/25/24 11:37 [id number] Evaluation + Plan noteExtracted from: Title:Bilateral sacroiliac joint injection Autho r:David Cao DO Date:07/11/24 Diagnosis: Sacroiliitis, M46 .1 Procedure: Bilateral diagnostic and therapeutic sacroiliac joint injections performed under fluoroscopic guidance Anesthesia: Local Complications: None After informed consent was obtained, the patient was brought back to the procedure room and placed in the prone position. Back areas prepped and draped in the usual sterile fashion using fluoroscopic guidance, the skin and subcutaneous tissues overlying the needle trajectory over the lower aspect of sacroiliac joint were anesthetized with 2% lidocaine. The 22-gauge Quincke needles were then introduced in the lower aspect of the sacroiliac joint. Injection of contrast under fluoroscopy revealed appropriate intra-articular spread. Thereafter, 4 mL of 0.5% bupivacaine with 40 mg of methylprednisolone were injected in divided doses between the bilateral sacroiliac joints. The needle was then removed. The patient tolerated procedure well. Patient was then transferred to the recovery room in stable condition. Follow-up: The patient will update us on the response to this procedure, and agrees to continue currently prescribed/recommended therapies. Future Appointments Appointment Date:07/25/2024 11:15:00 AM Scheduled Provider:Staci Kevin PA-C Location:[facility] Appointment Type:Pain Management - Follow Up (FT) [facility] 09-30-2024 NoteOperative Report Diagnosis: Sacroiliitis, M46.1 Procedure: Bilateral diagnostic and therapeutic sacroiliac joint injections performed under fluoroscopic guidance Anesthesia: Local Complications: None After informed consent was obtained, the patient was brought back to the procedure room and placed in the prone position. Back areas prepped and draped in the usual sterile fashion using fluoroscopicguidance, the skin and subcutaneous tissues overlying the needle trajectory over the lower aspect of sacroiliac joint were anesthetized with 2% lidocaine. The 22-gauge Quincke needles were then introduced in the lower aspect of the sacroiliac joint. Injection of contrast under fluoroscopy revealed appropriate intra-articular spread. Thereafter, 4 mL of 0.5% bupivacaine with 40 mg of methylprednisolone were injected in divided doses between the bilateral sacroiliac joints. The needle was then removed. The patient tolerated procedure well. Patient was then transferred to the recovery room in stable condition. Follow-up: The patient will update us on the response to this procedure, and agrees to continue currently prescribed/recommended therapies.[facility] Comment on above:Result Comment: Electronically Signed By: David Cao DO.br\Date and Time Signed: 07/11/24 09:19 [id number] NoteHNO ID: [id number] Author: ANSELMO MCPHERSON MD Service: ? Author Type: Physician Type: Progress Notes Filed: 06/24/2024 14:23 Note Text: PATIENT NAME: Eben Arenas CLINIC NO.: [id number] ATTENDING PHYSICIAN: Anselmo Mcpherson MD DATE OF SERVICE: June 24, 2024 Some of the elements of this note have been copied from my previous progress note dated 03/22/2024. All the information has been reviewed carefully. Dear Dr. APONTE here is an update on a follow up visit on male Eben Arenas at the clinic June 24, 2024 Diagnosis: 1. 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 HPI: Eben Arenas is a 63 year old year old male here for follow up. He has started back on the testosterone and overall doing well. PAST MEDICAL HISTORY Diagnosis Date Former smoker HLD (hyperlipidemia) [place] (hard of hearing) HTN (hypertension) Long-term use of aspirin therapy OA (osteoarthritis) of knee Polycythemia S/P right knee arthroscopy TIA (transient ischemic attack) Social History Tobacco Use Smoking status: Former Passive exposure: Past Smokeless tobacco: Former Types: Chew Quit date: 09/12/2016 Tobacco comments: QUIT 15 YEARS AGO Vaping Use Vaping status: Never Used Substance Use Topics Alcohol use: Yes Comment: [...] of hands/feet. No weakness. PHYSICAL EXAMINATION: BP 124/77 Pulse 52 Temp (Src) 97.6 (Temporal Artery) Resp 18 Ht 5' 9.764 (1.77m) Wt 287 lb 0.6 oz (130.2kg) SpO2 95% BMI 41.47 kg/(m2). Wt 130.2 kg (287 lb) BMI [...] : Deferred LABS: Glucose (mg/dL) Date Value 03/22/2024 189 10/21/2019 Requisitioning entry error Potassium (mmol/L) Date Value 03/22/2024 4.0 10/21/2019 Requisitioning entry error Sodium (mmol/L) Date Value 03/22/2024 139 10/21/2019 Requisitioning entry error Chloride (mmol/L) Date Value 03/22/2024 104 10/21/2019 Requisitioning entry error CO2 (mmol/L) Date Value 03/22/2024 29 10/21/2019 Requisitioning entry error Creatinine (mg/dL) Date Value 03/22/2024 0.91 10/21/2019 Requisitioning entry error BUN (mg/dL) Date Value 03/22/2024 11 10/21/2019 Requisitioning entry error Anion Gap (mmol/L) Date Value 03/22/2024 6 10/21/2019 Requisitioning entry error Calcium (mg/dL) Date Value 10/21/2019 Requisitioning entry error Calcium, Total (mg/dL) Date Value 03/22/2024 9.9 Protein, Total (g/dL) Date Value 03/22/2024 6.8 10/21/2019 Requisitioning entry error Albumin (g/dL) Date Value 03/22/2024 4.2 10/21/2019 Requisitioning entry error Bilirubin, Total (mg/dL) Date Value 03/22/2024 0.6 10/21/2019 Requisitioning entry error Alkaline Phosphatase (U/L) Date Value 03/22/2024 100 10/21/2019 Requisitioning entry error AST (U/L) Date Value 03/22/2024 26 10/21/2019 Requisitioning entry error ALT (U/L) Date Value 03/22/2024 32 10/21/2019 Requi (more content not included)...[facility] 06-24-2024 History of Present illness Narrative* Anselmo Mcpherson MD - 06/24/2024 1:27 PM EDT PATIENT NAME: Eben Arenas CLINIC NO.: [id number] ATTENDING PHYSICIAN: Anselmo Mcpherson MD DATE OF SERVICE: June 24, 2024 Some of the elements of this note have been copied from my previous progress note dated 03/22/2024. All the information has been reviewed carefully. Dear Dr. APONTE here is an update on a follow up visit on male Eben Arenas at the clinic June 24, 2024 Diagnosis: 1. 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 HPI: Eben Arenas is a 63 year old year old male here for follow up. He has started back on the testosterone and overall doing well. PAST MEDICAL HISTORY Diagnosis Date Former smoker HLD (hyperlipidemia) [place] (hard of hearing) HTN (hypertension) Long-term use of aspirin therapy OA (osteoarthritis) of knee Polycythemia S/P right knee arthroscopy TIA (transient ischemic attack) Social History Tobacco Use Smoking status: Former Passive exposure: Past Smokeless tobacco: Former Types: Chew Quit date: 09/12/2016 Tobacco comments: QUIT 15 YEARS AGO Vaping Use Vaping status: Never Used Substance Use Topics Alcohol use: Yes Comment: [...] of hands/feet. No weakness. PHYSICAL EXAMINATION: BP 124/77 Pulse 52 Temp (Src) 97.6 (Temporal Artery) Resp 18 Ht 5' 9.764 (1.77m) Wt 287 lb 0.6 oz (130.2kg) SpO2 95% BMI 41.47 kg/(m^2). Wt 130.2 kg (287 lb) BMI [...] : Deferred LABS: Glucose (mg/dL) Date Value 03/22/2024 189 10/21/2019 Requisitioning entry error Potassium (mmol/L) Date Value 03/22/2024 4.0 10/21/2019 Requisitioning entry error Sodium (mmol/L) Date Value 03/22/2024 139 10/21/2019 Requisitioning entry error Chloride (mmol/L) Date Value 03/22/2024 104 10/21/2019 Requisitioning entry error CO2 (mmol/L) Date Value 03/22/2024 29 10/21/2019 Requisitioning entry error Creatinine (mg/dL) Date Value 03/22/2024 0.91 10/21/2019 Requisitioning entry error BUN (mg/dL) Date Value 03/22/2024 11 10/21/2019 Requisitioning entry error Anion Gap (mmol/L) Date Value 03/22/2024 6 10/21/2019 Requisitioning entry error Calcium (mg/dL) Date Value 10/21/2019 Requisitioning entry error Calcium, Total (mg/dL) Date Value 03/22/2024 9.9 Protein, Total (g/dL) Date Value 03/22/2024 6.8 10/21/2019 Requisitioning entry error Albumin (g/dL) Date Value 03/22/2024 4.2 10/21/2019 Requisitioning entry error Bilirubin, Total (mg/dL) Date Value 03/22/2024 0.6 10/21/2019 Requisitioning entry error Alkaline Phosphatase (U/L) Date Value 03/22/2024 100 10/21/2019 Requisitioning entry error AST (U/L) Date Value 03/22/2024 26 10/21/2019 Requisitioning entry error ALT (U/L) Date Value 03/22/2024 32 10/21/2019 Requisitioning entry error WBC Date Value [...] Range Status 03/22/2024 12.0 % Final Abs [place] Date Value Ref Range Status 03/22/2024 0.76 [...] do not hesitate to contact me at [phone]. Anselmo Mcpherson MD Hematology/Medical Oncology [facility] CC: Julia Mcdaniels MD - (Active), In Basket (Inactive) - User (Inactive) [address] [facility] [id number] (Ph) documented in this encounterA[facility] Miscellaneous Notes* Telephone Encounter - Lakhwinder Winslow - 06/23/2024 2:15 PM EDT Patient is scheduled for office visit tomorrow at 1:45PM and phlebotomy after per Oxana Liu. Left MC message for patient regarding this, patient read MC. * Telephone Encounter - Danuta Shabazz - 06/21/2024 12:42 PM EDT Patient would like to schedule phlebotomy with Soquel REJ. Please call him at [phone]. Thank you. documented in this encounterA[facility]09-12-2024 Telephone encounter Note * Telephone Encounter - Lakhwinder Winslow - 06/23/2024 2:15 PM EDT Patient is scheduled for office visit tomorrow at 1:45PM and phlebotomy after per Oxana Liu. Left MC message for patient regarding this, patient read MC. [facility]09-10-[facility] Telephone encounter Note* Telephone Encounter - Danuta Shabazz - 06/21/2024 12:42 PM EDT Patient would like to schedule phlebotomy with Aysha REJ. Please call him at [phone]. Thank you. [facility]08-30-2024 NoteConsultation Note Patient: EBEN ARENAS Age: 63 years Sex: Male : 1960 Associated Diagnoses: None Author: Staci Kevin PA-C Subjective Chief complaint 06/10/2024 14:17 EDT Lower back pain . Patient is a 63-year-old male. He presents today for second follow-up after undergoing bilateral medial branch RFA covering the L4-S1 facet joints. He had this done in March and he got some relief butunfortunate, just not quite enough. He states that he has been dealing with it and things are better but he is still having lower back/buttock pain that he rates a 6/10 but states it can get up to a 9/10. This affects his ability to do certain things. Affects his quality of life. Affects his activities. Patient showed me a picture of him when he was younger lifting over 1000 pounds. He states that he knows that this is why he has the pain and back issues that he has. He has done therapy in the past that has not helped. He is not able to use anti-inflammatory medications due to Eliquis use. Hehas the back and buttock pain and he wonders what he can do to try to get relief. Health Status Allergies: Allergic Reactions (Selected) Severity Not Documented Vytorin- Hives. Nonallergic Reactions (Selected) Severity Not Documented Ativan- Dizziness. LaMICtal- Agitation., Allergies (3) Active Severity Reaction Ativan Dizziness LaMICtal Agitation Vytorin Hives Current medications: (Selected) Documented Medications Documented Diurex Water Pills: PRN swelling, Refills(s) 0 Eliquis 5 mg oral tablet: 5 mg = 1 tab(s), Oral, BID, Refills(s) 0 METOPROLOL SUCCINATE ER 25 MG TB24: METOPROLOL SUCCINATE ER 25 MG TB24, Daily Nasacort Allergy 24HR nasal spray: 1 spray(s), Nasal, Daily Allergy symptoms, Refill(s) 0 amoxicillin 500 mg Cap: 500 mg = 1 cap(s), Refills(s) 0 baclofen 10 mg Tab: 10 mg = 1 tab(s), Oral, Daily, PRN Pain, Refills(s) 0 flecainide 50 mg Tab: Refills(s) 0 magnesium oxide 400 mg Tab: Refills(s) 0 triamcinolone Top 0.1% Crm 15 gram: Refill(s) 0 Problem list: All Problems High iron content / SNOMED CT 650878286 / Confirmed Localized osteoarthritis of knees, bilateral / SNOMED CT 6815907102 / Confirmed Hypercholesteremia / SNOMED CT 33147933 / Confirmed Type 2 diabetes mellitus / SNOMED CT 281687089 / Confirmed Erectile dysfunction / SNOMED CT 9210409220 / Confirmed Hypercholesterolemia / SNOMED CT 47639266 / Confirmed Lumbar spondylosis / SNOMED CT 023524690 / Confirmed Morbid obesity / SNOMED CT 104015581 / Confirmed Peripheral vascular disease / SNOMED CT 0145351034 / Confirmed Platelet disorder / SNOMED CT 51012720 / Confirmed Seasonal allergic rhinitis / SNOMED CT 721853133 / Confirmed Secondary polycythemia / SNOMED CT 892664059 / Confirmed HTN (hypertension) / SNOMED CT 7871454010 / Confirmed BMI 40.0-44.9, adult / SNOMED CT 2113609262 / Confirmed Bilateral stenosis of carotid arteries / SNOMED CT 8666795384 / Confirmed Outside Source Comment: Last Assessment & Plan: Carotid duplex US Intermittent claudication / SNOMED CT 254589724 / Confirmed Outside Source Comment: Last Assessment & Plan: PVR, best medical therapy and exercise History of transient ischemic attack / SNOMED CT 7816639024 / Confirmed Atrial fibrillation / SNOMED CT 52633547 / Confirmed Epidermal cyst / SNOMED CT 2054479772 / Confirmed Resolved: History of TIAs / SNOMED CT 6409283449 Resolved: Hypertension / SNOMED CT 2054712087 Objective Vital Signs 06/10/2024 14:17 EDT Peripheral Pulse Rate 57 bpm LOW Respiratory Rate 20 br/min Systolic Blood Pressure 115 mmHg Diastolic Blood Pressure 70 mmHg Mean Arterial Pressure, Cuff 85 mmHg General: Alert and oriented, No acute distress. Eye: Normal conjunctiva. HENT: Normocephalic, Normal hearing. Cardiovascular: No edema. Musculoskeletal Normal range of motion. Normal strength. 5/5 lower extremity strength Pain with compression of the bilateral sacroiliac joint Positive Alejandro test bilaterally Positive thigh thrust bilaterally Positive Gaenslen's test bilaterally Integumentary: Warm, Dry, [place]. Neurologic: Alert, Oriented. Psychiatric: Cooperative, Appropriate mood & affect. 14 point review of systems was negative unless otherwise noted. Results Review Lumbar x-ray report reviewed. Impression and Plan Patient is a 63-year-old male with a past medical history significant for chronic lower back pain, lumbar spondylosis and sacroiliitis. Previous bilateral medial branch RFA covering the L4-S1 facet joints did give patient some relief. Unfortunately, not quite enough. He still has buttock pain that on physical examination appears to be related to his sacroiliac joints. At this time, based on his imaging findings, his pain pattern, his failure to improve with conservative tr (more content not included)...[facility] HospitalComment on above:Result Comment: Electronically Signed By: Staci Kevin PA-C\.gila\Date and Time Signed: 06/10/24 14:38 [id number] Evaluation + Plan noteExtracted from: Title:Pain Managment Follow up Author:Staci Ruano Date:06/10/24 Impression and Plan Patient is a 63-year-old male with a past medical history significant for chronic lower back pain, lumbar spondylosis and sacroiliitis. Previous bilateral medial branch RFA covering the L4-S1 facet joints did give patient some relief. Unfortunately, not quite enough. He still has buttock pain that on physical examination appears to be related to his sacroiliac joints. At this time, based on his imaging findings, his pain pattern, his failure to improve with conservative treatments and the buttock pain he is still experiencing I recommended to patient bilateral sacroiliac joint injection under fluoroscopy for both diagnostic and therapeutic purposes. Procedure was discussed. Risks and benefits were discussed. Patient is agreeable. He will follow-up 2 weeks after the injection for reevaluation. Call clinic sooner if necessary. GIAN score: 27%. It should be noted that he does intermittently use baclofen for this time, he takes this very sparingly and does not need a refill. [facility] 07-22-2024 NoteConsultation Note HOSPITAL REGULATIONS: All Positive and Important Negative Findings Shall Be Recorded Date of Consultation: 04/29/2024 Attending Physician: Julia Mcdaniels M.D. Consulting Physician: Staci Kevin PA-C CHIEF COMPLAINT: Back pain followup after ablation. SUBJECTIVE: The patient is a 63-year-old male following up today after undergoing bilateral medial branch radiofrequency ablation covering the L4 to S1 facet joints. This was done on 03/29/2024. He thinks that he has about 25% relief. He states that things are better. He states not quite as good ro was hoping for. He still has back pain worse with certain activities that he rates as 3/10. He underwent two medial branch blocks both with significant relief. He was hopeful for more relief afterthe ablation. He is on Eliquis so he is not able to use antiinflammatory medications. He has done therapy in the past. This has not helped. At this time he feels that the ablation has given him some i mprovement but not quite enough. ALLERGIES: Vytorin causes hives. Ativan causes dizziness. Lamictal causes agitation. MEDICATIONS: Documented. The patient uses baclofen 10 mg as needed. He is on Eliquis. PROBLEM LIST: Reviewed and is appropriate. OBJECTIVE: Vital Signs: Blood pressure 128/85, body mass index 39.17. General: The patient is overweight. Sitting in a chair. Alert and oriented. No acute distress. Eyes: Normal conjunctivae. H.E.N.T.: Normocephalic, somewhat diminished hearing and has a hearing aid in on the left side. Cardiovascular: No edema noted. Musculoskeletal: Normal range of motion. Normal strength. 5/5 upper and lower extremity strength. Skin: Warm, dry, pink. Injection site is healed. Neurologic: Alert and oriented. The patient is cooperative and mood is appropriate. IMPRESSION AND PLAN: The patient is a 63-year-old male following up today after undergoing a bilateral medial branch radiofrequency ablation covering the L4 to S1 facet joints. The patient has lower back pain and lumbar spondylosis. We had a long discussion of the radiofrequency ablation process. The procedure was discussed. The expected outcome of the procedure was discussed and the length of time needed was discussed. At this time the patient would like to continue to give himself some more time. I would recommend he give himself about another month after the ablation to see how much effecthe can get from this. We discussed the possibility of a future MRI, but at this time he would like to try to hold off. He is going to continue to use baclofen, and he is going to follow up in four tosix weeks. He will call us in the interim should he require anything from our services. Oswestry Disability Index Score: 13% Staci Kevin PA-C ca Dictated: 04/29/2024 [id number] Transcribed: 04/29/2024 cc: Julia Mcdaniels M.D.[facility] HospitalComment on above:Result Comment: Electronically Signed By: Staci Kevin PA-C\.br\Date and Time Signed: 05/02/24 07:45 [id number] Evaluation + Plan note* Assessment & Plan Note - Sukumar Brewer MD - 04/21/2024 8:57 AM EDTAssociated Problem(s): Claudication ([facility]) Risk factors modification And walking is much as possible. He had left knee issues the he is getting addressed first. He is taking Eliquis. Will add aspirin. He could not tolerate statin. [facility]07-11-2024 Miscellaneous Notes* Assessment & Plan Note - Sukumar Brewer MD - 04/21/2024 8:57 AM EDTAssociated Problem(s): Claudication ([facility]) Risk factors modification And walking is much as possible. He had left knee issues the he is getting addressed first. He is taking Eliquis. Will add aspirin. He could not tolerate statin. * Assessment & Plan Note - Sukumar Brewer MD - 04/21/2024 8:55 AM EDT Associated Problem(s): Bilateral carotid artery stenosis Past medical therapy and surveillance imaging in a year. He does not take aspirin or statin. We will add baby aspirin. He could not tolerate statin in the past because of myopathy and muscle pain. [facility] Evaluation + Plan note* Assessment & Plan Note - Sukumar Brewer MD - 04/21/2024 8:55 AM EDT Associated Problem(s): Bilateral carotid artery stenosis Past medical therapy and surveillance imaging in a year. He does not take aspirin or statin. We will add baby aspirin. He could not tolerate statin in the past because of myopathy and muscle pain. [facility]07-11-[facility] History of Present illness Narrative* Sukumar Brewer MD - 04/21/2024 8:30 AM EDT Images from the original note were not included. To: JULAI MCDANIELS MD HPI: Eben Arenas is a 63 y.o. male with Known carotid stenosis and claudication. Comes in today withcarotid ultrasound and PVR. PVR shows calcified noncompressible vessels with mildly reduced PVR waveforms. His carotid ultrasound shows mild stenosis bilaterally. No stroke or mini strokes. No rest pain. He does not tolerate statin. He does not take aspirin. We will add aspirin. 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 Review of Systems: Review of Systems Constitutional: Negative. HENT: Negative. Respiratory: Negative. Cardiovascular: Negative. Gastrointestinal: Negative. Endocrine: Negative. Genitourinary: Negative. Musculoskeletal: Negative. Skin: Negative. Neurological: Negative. Hematological: Negative. Medications: Current Outpatient Medications on File Prior to Visit Medication Sig Dispense Refill baclofen (LIORESAL) 10 mg tablet ketoconazole (NIZORAL) 2 % cream lisinopril-hydroCHLOROthiazide (PRINZIDE,ZESTORETIC) 20-12.5 mg per tablet hqrpwquxugur-ngurnyiz-sxewqn (CENTRUM SILVER) tablet Take 1 tablet by mouth in the morning. NIASPAN EXTENDED-RELEASE 500 mg CR tablet sotalol HCl (SOTALOL ORAL) Take 40 mg by mouth in the morning and at bedtime. albuterol (PROVENTIL HFA;VENTOLIN HFA) 90 mcg/actuation inhaler (Patient not taking: Reported on 01/14/2024) apixaban (ELIQUIS) 5 mg tablet Take 1 tablet (5 mg total) by mouth in the morning and 1 tablet (5 mg total) before bedtime. Indications: treatment to prevent blood clots in chronic atrial fibrillation. aspirin 325 mg tablet Take 1 tablet (325 mg total) by mouth in the morning. (Patient not taking: Reported on 01/14/2024) dexAMETHasone (DECADRON) 4 mg tablet (Patient not taking: Reported on 01/14/2024) levoFLOXacin (LEVAQUIN) 750 mg tablet (Patient not taking: Reported on 12/18/2022) sildenafiL (VIAGRA) 50 mg tablet TAKE 1 TABLET BY MOUTH NEEDED DAILY (Patient not taking: Reported on 01/14/2024) tadalafiL (CIALIS) 10 MG tablet Take 1 tablet (10 mg total) by mouth as needed. (Patient not taking: Reported on 01/14/2024) tadalafiL (CIALIS) 10 MG tablet Take by mouth. (Patient not taking: Reported on 01/14/2024) No current facility-administered medications on file prior to visit. Past Medical History: Past Medical History: Diagnosis Date A-fib ([facility]) Arthritis Hypertension Past Surgical History: Past Surgical History: Procedure Laterality Date CARDIOVERSION 10/2023 REPLACEMENT TOTAL KNEE Right 08/06/2022 Social and Family History: Social History Socioeconomic History Marital status: Spouse name: Not on file Number of children: Not on file Years of education: Not on file Highest education level: Not on file Occupational History Not on file Tobacco Use Smoking status: Never Smokeless tobacco: Never Vaping Use Vaping status: Never Used Substance and Sexual Activity Alcohol use: Not Currently Drug use: Never Sexual activity: Defer Other Topics Concern Not on file Social History Narrative Not on file Social Determinants of Health Financial Resource Strain: Not on file Food Insecurity: No Food Insecurity (04/21/2024) Hunger Screening Food Insecurity - Worry: Never True Food Insecurity - Inability: Never True Transportation Needs: Not on file Physical Activity: Not on file Stress: Not on file Social Connections: Not on file Interpersonal Safety: Not on file Housing Instability: Not on file History reviewed. No pertinent family history. Recent Labs: Recent and relative labs were reviewed and interpreted and contributed to the assessment and plan below. Vitals: BP 129/82 (BP Site: Right Arm, BP Postition: Sitting, BP CUFF SIZE: M (9-13 inches)) Pulse 61 Ht 177.8 cm (5' 10 ) Wt 129.9 kg (286 lb 6.4 oz) SpO2 97% BMI 41.09 kg/m Body mass index is 41.09 kg/m . Physical Exam: Physical Exam Constitutional: Appearance: Normal appearance. HENT: Head: Normocephalic and atraumatic. Mouth/Throat: Mouth: Mucous membranes are moist. Eyes: Extraocular Movements: Extraocular movements intact. Pupils: Pupils are equal, round, and reactive to light. Cardiovascular: Rate and Rhythm: Normal rate and regular rhythm. Pulmonary: Effort: Pulmonary effort is normal. Breath sounds: Normal breath sounds. Abdominal: General: Abdomen is flat. Bowel sounds are normal. Palpations: Abdomen is soft. Musculoskeletal: General: Normal range of motion. Cervical back: Normal range of motion. Skin: General: Skin is warm and dry. Neurological: General: No focal deficit present. Mental Status: He is alert and oriented to person, place, and time. Mental status is at baseline. Psychiatric: Mood and Affect: Mood normal. Behavior: Behavior normal. Thought Content: Thought content normal. Judgment: Judgment normal. Recent testing: PVR and carotid ultrasound Assessment and Plan: Problem List Bilateral carotid artery stenosis - Primary Current Assessment & Plan Past medical therapy and surveillance imaging in a year. He does not take aspirin or statin. We will add baby aspirin. He could not tolerate statin in the past because of myopathy and muscle pain. Claudication ([facility]) Eben was seen today for bilateral carotid artery stenosis. Diagnoses and all orders for this visit: Bilateral carotid artery stenosis Claudication ([facility]) Sukumar Brewer MD, STACY, RPVI, FSVS, FACS [facility] This note was created with the assistance of a speech recognition program. While intending to generate a timely document that accurately reflects the content of the visit, no guarantee can be provided that every grammatical or spelling mistake has been or will be identified or corrected. Thank you for your understanding. documented in this encounterOhioHealth Riverside Methodist HospitalInsideMaps [id number] Note [id number]#1.00TIFFort [facility]-29-20[facility] NoteDiagnosis: M47.816, bilateral lumbar spondyloarthropathy Procedure: Bilateral L3 [...] Next, all levels on the right were stimulatedat 2Hz for motor stimulation at 2.0V with no lower extremity motor contractions. Next 1.0mL of 2.0%lidocaine was injected through each needle tip. Thereafter, [...] The patient agrees to continue currently prescribed/recommended therapies.[facility] HospitalComment on above: Result Comment: Electronically Signed By: David Cao DO.br\Date and Time Signed: 03/29/24 10:36 [id number] NoteHNO ID: [id number] Author: ANSELMO MCPHERSON MD Service: ? Author Type: Physician Type: Progress Notes Filed: 03/22/2024 13:48 Note Text: PATIENT NAME: Eben Arenas CLINIC NO.: [id number] ATTENDING PHYSICIAN: Anselmo Mcpherson MD DATE OF [...] HISTORY Diagnosis Date Former smoker HLD (hyperlipidemia) [place]QU[place] (hard of hearing) HTN (hypertension) Long-term use [...] Date Value 2023 40 (more content not included)...[facility]06-11-2024 History of Present illness Narrative* Anselmo Mcpherson MD - 03/22/2024 1:38 PM EDT PATIENT NAME: Eben Arenas CLINIC NO.: [id number] ATTENDING PHYSICIAN: Anslemo Mcpherson MD DATE OF SERVICE: March 22, 2024 Some of the elements of this note have been copied from my previous progress note dated 2023. All the information has been reviewed carefully. Dear Dr. APONTE here is an update on a follow up visit on male Eben Arenas at the clinic March Diagnosis: 1. 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 HPI: Eben Arenas is a 63 year old year old male here for follow up. Doing well and has been off the testosterone and planning on restarting at half the dose PAST MEDICAL HISTORY Diagnosis Date Former smoker HLD (hyperlipidemia) [place]QU[place] (hard of hearing) HTN (hypertension) Long-term use [...] Range Status 03/22/2024 12.0 % Final Abs [place] Date Value Ref Range Status 03/22/2024 0.76 [...] do not hesitate to contact me at [phone]. Anselmo Mcpherson MD Hematology/Medical Oncology [facility] CC: Julia Mcdaniels MD - (Active), In Basket (Inactive) - User (Inactive) [address] [facility] [phone] (Ph) documented in this encounterAultman [facility]05-03-[facility]24 Evaluation + Plan note Extracted from: Title:Pain Managment Follow up Author:Herberth Alonzo Staci Date:02/12/24 Impression and Plan Patient is a [...] services in the interim GIAN score: 22% [facility]04-25-2024 Hospital Discharge instructions Patient Education 02/04/2024 14:56:20 [...] Follow these instructions at home: Medicines Take tkfm-laz-bvrjegr and prescription medicines only as told by [...] and water are not available, use hand mud mixer helper. ?Change your dressing as told by your [...] your cyst was removed. Take or apply slek-mpr-rxdpyuu and prescription medicines only as told by your health care provider. Follow instructions from your health care provider about how to take care of your incision. This information is not intended to replace advice given to you by your health care provider. Make sure you discuss any questions you have with your health care provider. Document Revised: 01/02/2021 Document Reviewed: 01/02/2021 [employer] Patient Education 2022 Staff Ranker. Follow Up Care 01/28/2024 13:15:57 With:Ruben CHASE Address: [address], [address] [place] [address]- Business (1) When:2 weeks [facility]04-25-2024 NotePatient: EBEN ARENAS Age: 63 years Sex: Male : 1960 Associated Diagnoses: None Author: Ruben CHASE MD Subjective no changes to & [facility] HospitalComment on above:Result Comment: Electronically Signed By: Ruben CHASE MD\.br\Date and Time Signed: 02/04/24 13:58 [id number]04-18-2024 Hospital Discharge instructions Follow Up Care 01/28/2024 13:18:17 With:Ruben CHASE MD, SUR Address: [address] [place] [address]- When: only if needed [facility] [place] 04-18-2024 NoteChief Complaint consultation for sebaceous cyst [...] BNT-162b2 vax 08/03/2021 Recorded 2024-01-15: [id number] [facility] Brandenburg CenterComment on above:Result Comment: Electronically Signed By: SALVATORE JAVIER, Ruben Castorena\Date and Time Signed: 01/28/24 13:14 EDT 01-27-2024 [id number] [facility]04-17-2024 NoteDiagnosis: m47.816, lumbar spondyloarthropathy Procedure: Bilateral [...] The patient agrees to continue currently prescribed/recommended therapies.[facility] HospitalComment on above: Result Comment: Electronically Signed By: David Cao DO\.br\Date and Time Signed: 01/27/24 14:51 [id number] Evaluation + Plan noteExtracted from: Title:Bilateral L3-5 [...] Date:01/28/2024 01:00:00 PM Scheduled Provider:Ruben CHASE MD Location:[facility] Appointment Type:[place] [address] Appointment Date:02/12/2024 02:15:00 PM Scheduled Provider:Staci Kevin PA-C Location:[facility] Appointment Type:Pain Management - Follow Up (FT) [facility]04-11-2024 Evaluation + Plan note* Assessment & Plan Note - Sukumar Brewer MD - 01/21/2024 9:05 AM EDTAssociated Problem(s): Claudication ([facility]) PVR, best medical therapy and exercise [facility]04-11-2024 Evaluation + Plan note* Assessment & Plan Note - Sukumar Brewer MD - 01/21/2024 9:05 AM EDTAssociated Problem(s): Bilateral carotid artery stenosis Carotid duplex US [facility]04-11-2024 Miscellaneous Notes* Assessment & Plan Note - Sukumar Brewer MD - 01/21/2024 9:05 AM EDTAssociated Problem(s): Claudication ([facility]) PVR, best medical therapy and exercise * Assessment & Plan Note - Sukumar Brewer MD - 01/21/2024 9:05 AM EDT Associated Problem(s): Bilateral carotid artery stenosis Carotid duplex US documented in this encounterEast [facility]04-11-2024 History of Present illness Narrative* Sukumar Brewer MD - 01/21/2024 8:40 AM EDT Images from the original note were not included. To: JULIA MCDANIELS MD HPI: Eben Arenas is a 63 y.o. male with known bilateral mild ICA stenosis. His carotid ultrasound was more than a year ago. He is on best medical therapy. He does not smoke. He also have claudication.He does not have any testing for MARJORIE PVR recently. No rest pain or tissue loss. Review of Systems: Review of Systems Constitutional: Negative. HENT: Negative. Respiratory: Negative. Cardiovascular: Negative. Gastrointestinal: Negative. Endocrine: Negative. Genitourinary: Negative. Musculoskeletal: Negative. Skin: Negative. Neurological: Negative. Hematological: Negative. Medications: Current Outpatient Medications on File Prior to Visit Medication Sig Dispense Refill apixaban (ELIQUIS) 5 mg tablet Take 1 tablet (5 mg total) by mouth in the morning and 1 tablet (5 mg total) before bedtime. Indications: treatment to prevent blood clots in chronic atrial fibrillation. baclofen (LIORESAL) 10 mg tablet ketoconazole (NIZORAL) 2 % cream lisinopril-hydroCHLOROthiazide (PRINZIDE,ZESTORETIC) 20-12.5 mg per tablet srbhevvonhaj-gfbemjts-ojedrz (CENTRUM SILVER) tablet Take 1 tablet by mouth in the morning. NIASPAN EXTENDED-RELEASE 500 mg CR tablet sotalol HCl (SOTALOL ORAL) Take 40 mg by mouth in the morning and at bedtime. albuterol (PROVENTIL HFA;VENTOLIN HFA) 90 mcg/actuation inhaler (Patient not taking: Reported on 01/14/2024) aspirin 325 mg tablet Take 1 tablet (325 mg total) by mouth in the morning. (Patient not taking: Reported on 01/14/2024) dexAMETHasone (DECADRON) 4 mg tablet (Patient not taking: Reported on 01/14/2024) levoFLOXacin (LEVAQUIN) 750 mg tablet (Patient not taking: Reported on 12/18/2022) sildenafiL (VIAGRA) 50 mg tablet TAKE 1 TABLET BY MOUTH NEEDED DAILY (Patient not taking: Reported on 01/14/2024) tadalafiL (CIALIS) 10 MG tablet Take 1 tablet (10 mg total) by mouth as needed. (Patient not taking: Reported on 01/14/2024) tadalafiL (CIALIS) 10 MG tablet Take by mouth. (Patient not taking: Reported on 01/14/2024) No current facility-administered medications on file prior to visit. Past Medical History: Past Medical History: Diagnosis Date A-fib ([facility]) Arthritis Hypertension Past Surgical History: Past Surgical History: Procedure Laterality Date CARDIOVERSION 10/2023 REPLACEMENT TOTAL KNEE Right 08/06/2022 Social and Family History: Social History Socioeconomic History Marital status: Spouse name: Not on file Number of children: Not on file Years of education: Not on file Highest education level: Not on file Occupational History Not on file Tobacco Use Smoking status: Never Smokeless tobacco: Never Vaping Use Vaping status: Never Used Substance and Sexual Activity Alcohol use: Not Currently Drug use: Never Sexual activity: Defer Other Topics Concern Not on file Social History Narrative Not on file Social Determinants of Health Financial Resource Strain: Not on file Food Insecurity: Not on file Transportation Needs: Not on file Physical Activity: Not on file Stress: Not on file Social Connections: Not on file Interpersonal Safety: Not on file Housing Instability: Not on file No family history on file. Recent Labs: Recent and relative labs were reviewed and interpreted and contributed to the assessment and plan below. Vitals: BP 127/85 (BP Site: Left Arm, BP Postition: Sitting, BP CUFF SIZE: L (13-17 inches)) Pulse 70 Ht 177.8 cm (5' 10 ) Wt 126.7 kg (279 lb 6.4 oz) BMI 40.09 kg/m Body mass index is 40.09 kg/m . Physical Exam: Physical Exam Constitutional: Appearance: Normal appearance. HENT: Head: Normocephalic and atraumatic. Mouth/Throat: Mouth: Mucous membranes are moist. Eyes: Extraocular Movements: Extraocular movements intact. Pupils: Pupils are equal, round, and reactive to light. Cardiovascular: Rate and Rhythm: Normal rate and regular rhythm. Pulmonary: Effort: Pulmonary effort is normal. Breath sounds: Normal breath sounds. Abdominal: General: Abdomen is flat. Bowel sounds are normal. Palpations: Abdomen is soft. Musculoskeletal: General: Normal range of motion. Cervical back: Normal range of motion. Skin: General: Skin is warm and dry. Neurological: General: No focal deficit present. Mental Status: He is alert and oriented to person, place, and time. Mental status is at baseline. Psychiatric: Mood and Affect: Mood normal. Behavior: Behavior normal. Thought Content: Thought content normal. Judgment: Judgment normal. Recent testing: Assessment and Plan: Problem List Cardiovascular and Mediastinum Bilateral carotid artery stenosis - Primary Current Assessment & Plan Carotid duplex US Relevant Orders Vas carotid duplex bilateral Nervous and Auditory Claudication ([facility]) Current Assessment & Plan PVR, best medical therapy and exercise Relevant Orders Vas art doppler lwr bilat mult lev/PVR Diagnoses and all orders for this visit: Bilateral carotid artery stenosis - Vas carotid duplex bilateral; Future Claudication ([facility]) - Vas art doppler lwr bilat mult lev/PVR; Future Sukumar Brewer MD, STACY, RPVI, FSVS, FACS [facility] This note was created with the assistance of a speech recognition program. While intending to generate a timely document that accurately reflects the content of the visit, no guarantee can be provided that every grammatical or spelling mistake has been or will be identified or corrected. Thank you for your understanding. documented in this encounterOhioHealth Riverside Methodist HospitalInsideMaps [id number] Evaluation + Plan noteExtracted from: Title:Bilateral lumbar radio frequency for L4/5 and L5/S1 facets Author:David Cao DO Date:03/29/24 Diagnosis: M47.816, bilatera l lumbar spondyloarthropathy Procedure: Bilateral L3 and L4 [...] Date:04/29/2024 08:45:00 AM Scheduled Provider:Staci Kevin PA-C Location[facility] Appointment Type:Pain Management - Follow Up (FT) [facility]03-19-2024 NoteHNO ID: [id number] Author: MARGARITA TAYLOR PA-C Service: ? Author Type: Physician Senior Talent Management Consultant Type: Progress Notes Filed: 12/29/2023 15:50 Note Text: PATIENT NAME: Eben Arenas CLINIC NO.: [id number] ATTENDING PHYSICIAN: Anselmo Mcpherson MD DATE OF [...] HISTORY Diagnosis Date Former smoker HLD (hyperlipidemia) [place]QU[place] (hard of hearing) HTN (hypertension) Long-term use [...] 30.5 - 36.0 g/dL (more content not included)...[facility] [id number] History of Present illness Narrative* Margarita Taylor PA-C - 12/29/2023 3:18 PM EDT PATIENT NAME: Eben Arenas [facility] NO.: [id number] ATTENDING PHYSICIAN: Anselmo Mcpherson MD DATE OF [...] HISTORY Diagnosis Date Former smoker HLD (hyperlipidemia) [place] (hard of hearing) HTN (hypertension) Long-term use [...] Range Status 12/29/2023 10.2 % Final Abs [place] Date Value Ref Range Status 12/29/2023 0.73 [...] Basket (Inactive) - User (Inactive) [address] [facility] [phone] (Ph) documented in this encounterAultman [facility]rville [facility]03-19-2024 Nurse Note* Dinora Franz MA - 12/29/2023 3:04 PM EDT Patient thinks his Testosterone is low, he would like to discuss it with you. Dinora Buitrago MA documented in this encounterAultman Orrville Hospital03-04-2024 Evaluation + Plan note Extracted from: Title:Pain [...] clinic sooner if necessary. GIAN score: 26% [facility]02-07-2024 Evaluation note* Encounter Date Diagnosis Assessment Notes Treatment Notes Treatment Clinical Notes Nov, Localized osteoarthritis of lumbar spine (ICD-10 - M47.816) [employer] Other 01-24-2024 [facility]Prem[facility] History of Present illness Narrative* Alejandrina Apodaca [...] m (5' 10 ) documented in this encounterDunlap Memorial Hospital Work Phone: 1(249) 671-114201-11-2024 History of Present illness Narrative* Jen Aguilar [...] currently scheduled 11/04/[address] Rabaog for review Vitals: 10/22/23 0942 BP: 98/78 BP Location: Right arm Patient Position: Sitting Pulse: (!) 142 Weight: 125 kg (276 lb) Height: 1.778 m (5' 10 ) documented in this [facility] Work Phone: 1(713) 302-763712-27-2023 History of Present illness Narrative* Americo Rabago MD - 10/07/2023 1:10 PM EST Subjective Eben Arenas is a 62 y.o. male Chief Complaint Follow-up HPI Patient was added onto our schedule because of a phone call. He apparently had presented for an outpatient surgical procedure at [facility] and was found to be in atrial flutter withrapid ventricular response. His surgery was canceled and we were notified. We rn internal medicine contacted the patient and made arrangements for [...] for his surgical procedure. documented in this encounterDunlap Memorial Hospital Work Phone: [phone]) 348-631612-27-2023 Instructions* Patient Instructions* Mary Jane Schmidt LPN [...] time of your visit. documented in this encounterDunlap Memorial Hospital Work Phone: 1(329) 649-538112-21-2023 Miscellaneous Notes* Telephone Encounter - Margarita Taylor [...] surgery)? Margarita Taylor PA-C documented in this encounterAultman Orrville Hospital12-20-2023 Miscellaneous Notes* Telephone Encounter - Kathy Pandya RN - 09/30/2023 3:24 PM EST Pt aware of MM message. He will continue medication until he can figure out how to DC safely. Pt is[facility]ing [facility] to see if they are able to do this. If not, he will get a urology referral on 10/27/23 appointment. Kathy Pandya RN * Telephone Encounter - Margarita Taylor PA-C - 09/30/2023 3:10 PM EST Please call patient and advise that after discussing testosterone discontinuation with pharmacy, they recommended he see urology to be sure it is done properly. The other option is to see if [facility] does this as well. Thanks Margarita Taylor PA-C documented in this encounterAultman Orrville Hospital11-15-2023 History of Present illness Narrative* Anselmo Mcpherson MD - 08/26/2023 3:36 PM EST PATIENT NAME: Eben Arenas CLINIC NO.: [id number] ATTENDING PHYSICIAN: Anselmo Mcpherson MD DATE OF [...] HISTORY Diagnosis Date Former smoker HLD (hyperlipidemia) SUQUAM[place] (hard of hearing) HTN (hypertension) Long-term use [...] Range Status 08/26/2023 11.9 % Final Abs [place] Date Value Ref Range Status 08/26/2023 0.87 [...] do not hesitate to contact me at [phone]. Anselmo Mcpherson MD Hematology/Medical Oncology [facility] CC: Julia Mcdaniels MD - (Active), In Basket (Inactive) - User (Inactive) [address] [facility] [phone] (Ph) documented in this encounterAultman Orrville Hospital09-20-2023 Miscellaneous Notes* Telephone Encounter - DavidtomVira - 07/01/2023 9:15 AM EDT Patient is scheduled for phlebotomy on Thursday, 07/10 and notified. Thanks! Vira Reed * Telephone Encounter - Anselmo Mcpherosn MD - 06/30/2023 2:38 PM EDT Order placed for next week * Telephone Encounter - Kathy Pandya RN - 06/30/2023 2:21 PM EDT Pt's home Hgb 19.5 today. He was encouraged to call and schedule a phlebotomy >18. Jovan/MM: please place orders Kathy Pandya RN documented in this encounterAultman Orrville Hospital09-12-2023 Evaluation note* Encounter Date Diagnosis Assessment Notes Treatment Notes Treatment Clinical Notes Jun, Adverse effect of drug, initial encounter (ICD-10 - T50.905A) Advised he not use off label meds, but if he does try other injection sites such as quads for semaglutide. Call if area does not resolve or if symptoms worsen. [facility] Other 09-12-2023 Evaluation note* Encounter Date Diagnosis [...] medication use from a non pharmacy source. [facility] Other 08-17-2023 Evaluation note* Encounter Date Diagnosis Assessment Notes Treatment Notes Treatment Clinical Notes May, Mass of joint of right shoulder (ICD-10 - M25.811) Check Xray. He will contact Dr. Quesada he is est there. Followup here prn. Has tried NSAIDs and ice [facility] Other 07-12-2023 History of Present illness Narrative* Anselmo Mcpherson MD - 04/22/2023 3:44 PM EDT PATIENT NAME: Eben Arenas CLINIC NO.: [id number] ATTENDING PHYSICIAN: Anselmo Mcpherson MD DATE OF [...] HISTORY Diagnosis Date Former smoker HLD (hyperlipidemia) SUQUAM[place] (hard of hearing) HTN (hypertension) Long-term use [...] Range Status 04/22/2023 10.6 % Final Abs [place] Date Value Ref Range Status 04/22/2023 0.96 [...] do not hesitate to contact me at [phone]. Anselmo Mcpherson MD Hematology/Medical Oncology [facility] CC: Julia Mcdaniels MD - (Active), In Basket (Inactive) - User (Inactive) [address] [facility] [phone] (Ph) documented in this encounter[facility] Evaluation note* Encounter Date Diagnosis Assessment Notes [...] Well controlled on present med. Chronic problem. [facility] Other 06-15-2023 Evaluation note* Encounter Date Diagnosis Assessment Notes Treatment Notes Treatment Clinical Notes Mar, Type 2 diabetes mellitus with hyperglycemia, without long-term current use of insulin (ICD-10 - E11.65) [facility] Other 06-14-2023 Evaluation note* Encounter Date Diagnosis Assessment Notes Treatment Notes Treatment Clinical Notes Mar, Type 2 diabetes mellitus with hyperglycemia, without long-term current use of insulin (ICD-10 - E11.65) [facility] Other 05-30-2023 Evaluation + Plan note Diagnostic Tests Pending * Insulin Level Total 03/10/23 * PSA Screen, Total 03/10/23 [facility]05-30-2023 Evaluation note* Encounter Date Diagnosis Assessment Notes Treatment Notes Treatment Clinical Notes February, Other fatigue (ICD-10 - R53.83) Discussed metabolic causes v. MELISSA that could cause weight gain and fatigue. February, Frequent urination (ICD-10 - R35.0) r/o diabetes February, Screening PSA (prostate specific antigen) (ICD-10 - Z12.5) > 1yr since checked February, Polydipsia (ICD-10 - R63.1) f/o diabetes [facility] Other 03-08-2023 History of Present illness Narrative* Anselmo Mcpherson MD - 12/17/2022 3:16 PM EST PAT[facility]: [id number] ATTENDING PHYSICIAN: Anselmo Mcpherson MD DATE OF [...] HISTORY Diagnosis Date Former smoker HLD (hyperlipidemia) SUQUAMISH (hard of hearing) HTN (hypertension) Long-term use [...] Range Status 08/27/2022 9.7 % Final Abs [place] Date Value Ref Range Status 08/27/2022 0.89 [...] do not hesitate to contact me at [phone]. Anselmo Mcpherson MD Hematology/Medical Oncology [facility] CC: Julia Mcdaniels MD - (Active), In Basket (Inactive) - User (Inactive) [address] [facility] [phone] (Ph) documented in this encounterAult[facility]02-01-[facility] History of Present illness NarrativePatient returns in [...] effort to achieve ideal body mass index.[facility]ar[facility] 250 DO Work Phone: [phone] History of Present illness NarrativePatient returns in [...] an effort to achieve ideal body mass index.[facility] Perez DO Work Phone: [phone] Evaluation note* Encounter Date Diagnosis Assessment Notes Treatment Notes Treatment Clinical Notes Oct, Abnormal stress test (ICD-10 - R94.39) [facility] Other 01-05-2023 Evaluation note* Encounter Date Diagnosis Assessment Notes Treatment Notes Treatment Clinical Notes Oct, Bronchitis (ICD-10 - J40) [facility] Other 01-04-2023 Evaluation note* Encounter Date Diagnosis Assessment Notes Treatment Notes Treatment Clinical Notes Oct, Bronchitis (ICD-10 - J40) symptoms have worsened, will add abx anticipating stress test next week [facility] Other 11-16-2022 History of Present illness Narrative* Anselmo Mcpherson MD - 08/27/2022 3:19 PM EST PATIENT NAME: Eben Arenas CLINIC NO.: [id number] ATTENDING PHYSICIAN: Anselmo Mcpherson MD DATE OF [...] HISTORY Diagnosis Date Former smoker HLD (hyperlipidemia) SUQUAM[place] (hard of hearing) HTN (hypertension) Long-term use [...] 08/27/2022 1.91 1.00 - 4.00 k/uL Final [place]% Date Value Ref Range Status 08/27/2022 9.7 % Final Abs [place] Date Value Ref Range Status 08/27/2022 0.89 [...] do not hesitate to contact me at [phone]. Anselmo Mcpherson MD Hematology/Medical Oncology [facility] CC: Julia Mcdaniels MD - (Active), In Basket (Inactive) - User (Inactive) [address] [facility] [phone] () documented in this encounterAultman [facility]11-03-2022 NoteCONSULTATION CONSULTATION DATE: 08/14/2022 HISTORY OF PRESENT [...] done on 08/05/[address] Quesada at [facility]. The patient has significant relief and is [...] of care and all questions were answered.[facility] 08-05-2022 Hospital Discharge instructions Patient Education 08/05/2022 13:09:36 Rafael - Total Knee Arthroplasty. Revised 12/03/11. (Custom) [place], [place] [facility] DISCHARGE INSTRUCTIONS TOTAL KNEE [...] will continue at home, possible with the web assistant of Home Health Physical Therapy or [...] OFFICE VISIT: 4 weeks postop. Anupam Quesada, DO [facility] [address] [place], [place] [id number] Reviewed: 01-17 Revised 10/2308/05/2022 11:52:36 Knee Cryocuff [...] as possible. If the spirometer includes a personal development coach indicator, use this to guide you [...] 02/08/2008 Document Revised: 10/21/2018 Document Reviewed: 08/11/2018 [employer] Patient Education 2020 Staff Ranker. 08/05/2022 11:52:36 Post Op Patient Instructions - FT (CUSTOM) [facility]10-25-2022 Evaluation + Plan noteExtracted from: Title:Post-anesthesia - General Author:Amish Berman DO Date:08/05/22 Plan Transfer/ Discharge: Condition stable. Extracted from: Title:Pre-anesthesia - Adult Author:Amish Garzon Jr., DO Date:08/05/22 Plan [place] [employer]esthesi[employer] (ASA) physical status classification: Class III. Anesthetic Preoperative Plan Anesthesia: General. . Anesthetic plan, risks, benefits, and alternatives discussed with the patient and/or family. Patient verbalized understanding. Adverse reactions, complications, and alternatives discujssed. Consent signed and on chart.. [facility]10-19-2022 History of Present illness Narrative* Margarita Taylor PA-C - 07/30/2022 1:46 PM EDT PATIENT NAME: Eben Arenas CLINIC NO.: [id number] ATTENDING PHYSICIAN: Anselmo Mcpherson MD DATE OF [...] phlebotomy in over year. He remains on [id number] mg weekly. He had labs checked last week to prepare for his right TKA scheduled for next week and his hgb was 20 so he decided he should come back and be seen. He denies any headaches, dizziness, vision issues. Overall he has felt fine. M PAST MEDICAL HISTORY Diagnosis Date Former smoker HLD (hyperlipidemia) SUQUAM[place] (hard of hearing) HTN (hypertension) Long-term use [...] Basket (Inactive) - User (Inactive) [address] [facility] [phone] (Ph) documented in this encounterAultman [facility]08-11-2022 NoteCONSULTATION CONSULTATION DATE: 05/22/2022 This is a [...] in his ankles. He has been using pgsr-yiy-blnscku diurex to help manage that, which is [...] an he is in agreement to this.[facility] [id number] NoteCONSULTATION PAIN MANAGEMENT CONSULTATION HISTORY OF PRESENT [...] under the care of Dr. Quesada at [facility]. He received a right knee steroid injection [...] plan of care and all questions answered. [facility] Signed and Approved by: JANIS MAHAN . 01/30/2022 13:59:00[facility]03-23-2022 NotePROCEDURE: XR KNEE RT 4V or > [...] Electronically authenticated by: WANDA CADENA Date: 2022-01-01 10:37[facility]03-23-2022 NoteCONSULTATION PAIN MANAGEMENT CONSULTATION HISTORY OF PRESENT ILLNESS: This is a pleasant and active, 61-year-old gentleman who recently had bilateral lumbar RFAs, but is being seen today at his request for right knee pain. 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 In 2016, he had a [facility] by a Dr. Mcdonough. That, per the [...] of care and would like to proceed. [facility] Signed and Approved by: JANIS MAHAN . 01/02/2022 12:27:00[facility] [id number] History general Narrative - Reported* Type Description Date Medical History hypertension Surgical History Lipoma removal 1999 Surgical History Lt. knee arthroscopy 1999 Surgical History Rt.. medial meniscus tear [facility] Other 02-01-2016 History general Narrative - Reported* Type Description Date Medical History hypertension Surgical History Lipoma removal 1999 Surgical History Lt. knee arthroscopy 1999 Surgical History Rt.. medial meniscus tear Hospitalization History SEE SURGICAL HX [employer] [facility] [employer] Other Chinz complaint Narrative - ReportedEBEN ARENAS is being seen for a consultation for.[place] [address] DO Work Phone: Evaluation + Plan note Future Appointments Appointment Date:08/05/2022 09:00:00 AM Scheduled Provider: [facility] Future Appointments Appointment Date:02/01/2024 11:00:00 AM Scheduled Provider: [facility] Appointment Type:Surgery CALL PAT FT Appointment Date:02/04/2024 01:15:00 PM Scheduled Provider: [facility] Appointment Type:Surgery FT Appointment Date:02/12/2024 01:40:00 PM Scheduled Provider:Ruben CHASE MD Location:[facility] Appointment Type: Post Op 15 Appointment Date:02/12/2024 02:15:00 PM Scheduled Provider:Staci Kevin PA-C Location:[facility] Appointment Type:Pain Management - Follow Up (FT) [facility] Evaluation + Plan note Future Appointments Appointment Date:02/12/2024 01:40:00 PM Scheduled Provider:Ruben CHASE MD Location:[facility] Appointment Type:GS Post Op 15 Appointment Date:02/12/2024 02:15:00 PM Scheduled Provider:Staci Kevin PA-C Location:.[facility] Appointment Type:Pain Management - Follow Up (FT) [facility] Future Appointments Appointment Date:06/10/2024 02:15:00 PM Scheduled Provider:Staci Kevin PA-C [facility] - [facility] (FT[facility] Future Appointments Appointment Date:07/25/2024 11:15:00 AM Scheduled Provider:Staci Kevin PA-C [facility] Management - Follow Up (FT) [facility] Evaluation + Plan note Future Appointments Appointment Date:01/31/2025 10:30:00 AM Scheduled Provider: [facility] Appointment Type:Surgery FT [facility] Evaluation note* Diagnosis Secondary polycythemia- Primary Polycythemia, secondary documented in this encounter [facility] note* Diagnosis Polycythemia, secondary- Primary documented in this encounter [facility] noteNo assessment information [facility] Work Phone: Evalutfkbz noteNo InformationNoshriners hospitals for children [employer] Other Evaluation note* Diagnosis Polycythemia, secondary- Primary documented in this encounter [facility] note* Diagnosis Secondary polycythemia- Primary Polycythemia, secondary documented in this encounter [facility] note* Diagnosis Polycythemia, secondary- Primary documented in this encounter [facility] note* Diagnosis Secondary polycythemia- Primary Polycythemia, secondary documented in this encounter [facility] note* Diagnosis Abnormal EKG Nonspecific abnormal electrocardiogram (ECG) (EKG) Essential hypertension Unspecified essential hypertension Persistent atrial fibrillation (CMS/HCC) Atrial fibrillation Preoperative clearance Unspecified pre-operative examination PAC (premature atrial contraction) Supraventricular premature beats Palpitations documented in this encounter [facility] Work Phone: Evaluation note* Diagnosis Persistent atrial fibrillation (CMS/HCC) Atrial fibrillation documented in this encounter [facility] Work Phone: Evaluation note* Diagnosis Persistent atrial fibrillation (CMS/HCC) Atrial fibrillation documented in this encounter [facility] Work Phone: Evaluation note* Diagnosis Polycythemia, secondary- Primary Low testosterone in 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 disorder (HCC) Qualitative platelet defects documented in this encounter [facility]* Diagnosis Onset Date Resolution Status Atrial fibrillation and flutter acute Hypertension acute Sebaceous cyst acute [facility] Work Phone: Evaluation note* Diagnosis Onset Date Resolution Status Atrial fibrillation and flutter acute Hypertension acute Sebaceous cyst acute Chronic cough acute Chronic sinusitis acute [facility] Work Phone: Evaluation note* Diagnosis Polycythemia, secondary- Primary Low testosterone in male documented in this encounter [facility]* Diagnosis Polycythemia, secondary- Primary Secondary polycythemia Polycythemia, secondary [facility] this [facility]* Diagnosis Heel pain, bilateral Bilateral foot pain Pain in limb documented in this encounter [facility]* Diagnosis Lumbar pain- Primary Lumbago Degeneration of intervertebral disc of lumbar region with discogenic back pain Sacroiliitis (CMS/HCC) Sacroiliitis, not elsewhere classified Morbid obesity (CMS/HCC) Morbid obesity [facility] Diagnosis Atrial fibrillation, currently in sinus rhythm High risk medication use Primary hypertension Unspecified essential hypertension halfway current use of anticoagulant therapy Hard of hearing Unspecified hearing loss Encounter to discuss test results Other specified counseling Other hyperlipidemia Persistent atrial fibrillation (Multi) Atrial fibrillation documented in this encounter [facility] Work Phone: Evaluation note* Diagnosis Polycythemia, secondary- Primary documented in this encounter [facility]* Diagnosis Onset Date Resolution Status Admit Date Transient diplopia acute Januar y 2024 1:02pm [facility] Work Phone: Evaluation note* Diagnosis Secondary polycythemia- Primary Polycythemia, secondary documented in this encounter [facility]* Diagnosis Secondary polycythemia- Primary Polycythemia, secondary Polycythemia, secondary Low testosterone in male History of atrial fibrillation Personal history of other diseases of circulatory system Rotator cuff tear arthropathy, left documented in this encounter [facility]* Diagnosis Arthritis of left shoulder region- Primary Morbid obesity ([facility]) Morbid obesity halfway (current) use of anticoagulants Long-term (current) use of anticoagulants documented [facility] encounter [facility]* Diagnosis Rotator cuff tear arthropathy of right shoulder- Primary Right shoulder pain, unspecified chronicity documented in this encounter [facility]* Diagnosis Bilateral carotid artery stenosis- Primary Occlusion and stenosis of carotid artery without mention of cerebral infarction [place] Unspecified peripheral vascular disease [facility] [place] [facility] Diagnosis Bilateral carotid artery stenosis- Primary Occlusion and stenosis of carotid artery without mention of cerebral infarction [place] Unspecified peripheral vascular disease [facility] [place] [facility]* Diagnosis S/P total knee arthroplasty, right- Primary Left knee pain, unspecified chronicity Primary osteoarthritis of left knee Morbid obesity ([facility]) Morbid obesity long term care pharmacist (current) use of anticoagulants Long-term (current) use of anticoagulants Preoperative testing Unspecified pre-operative examination documented [facility]* Diagnosis Preop examination Unspecified pre-operative examination Primary hypertension Unspecified essential hypertension Atrial fibrillation, currently in sinus rhythm High risk medication use Persistent atrial fibrillation (Multi) Atrial fibrillation long term care pharmacist current use of anticoagulant therapy Hard of hearing Unspecified hearing loss Mixed hyperlipidemia Encounter to discuss test results Other specified counseling Other hyperlipidemia documented in this encounter [facility] Work Phone: Evaluation note* Diagnosis Left wrist tendonitis- Primary documented in this encounter [facility] Work Phone: Evaluation note* Diagnosis Aftercare following left knee joint replacement surgery- Primary [facility] encounter [facility]* Diagnosis Onset Date Resolution Status Admit Date Peripheral vascular disease, unspecified acute April 07, 2025 1:18pm [facility] Work Phone: Evaluation note* Diagnosis History of total left knee replacement- Primary documented [facility] this encounter [facility]* Diagnosis PAD (peripheral artery disease)- Primary Unspecified peripheral vascular disease History of smoking Personal history of tobacco use, presenting hazards to health Carotid stenosis, asymptomatic, bilateral documented in this encounter [facility] Work Phone: History of Present illness [...] impact on blood pressure control was explained -[facility] 250 DO Work Phone: History of Present illness Narrative* Ac Laird PA-C - 02/11/2025 9:45 AM EDT Subjective Patient ID: Eben Arenas is a 64 y.o. male who presents for Wrist Injury (Pt states left wrist started hurting yesterday at 2pm. ). HPI Patient presents for left wrist pain. Patient reports onset yesterday of pain in the left anterior wrist. No trauma, fall, or direct blow. Has recently had knee surgery. Patient reports use of a walker over the past 2 weeks which exacerbates the pain. Patient took 2 hydrocodone leftover from surgery with no relief. No other complaints. Review of Systems Constitutional: See HPI Musculoskeletal: See HPI Neurologic: Alert and oriented X4, No numbness, No tingling. All other systems are negative Objective BP 132/86 Pulse 88 Temp 36.9 C (98.4 F) (Temporal) Resp 18 Ht 1.778 m (5' 10 ) Wt 131 kg (288 lb) SpO2 94% BMI 41.32 kg/m Physical Exam General: Alert and oriented, No acute distress. Eye: Pupils are equal, round and reactive to light, Normal conjunctiva. HENT: Normocephalic, Neck: Supple Respiratory: Respirations are non-labored Musculoskeletal: Reduced technical sme strength on the left as compared to right; reduced range of motion ofthe fingers on the left as compared to right; tenderness to palpation over anterior wrist; no erythema, warmth, or swelling integumentary: Warm, Dry, Intact, No pallor, No rash. Neurologic: Alert, Oriented, Normal sensory, Cranial Nerves II-XII are grossly intact Psychiatric: Cooperative, Appropriate mood & affect. Assessment/Plan Exam is consistent with left wrist tendinitis. Patient placed in a splint. RICE principles reviewed. Likely course reviewed. Patient's clinical presentation is otherwise unremarkable at this time. Patient is discharged with instructions to follow-up with primary care or seek emergency medical attention for worsening symptoms or any new concerns. Problem List Items Addressed This Visit None Visit Diagnoses Left wrist tendonitis - Primary Final diagnoses: [M77.8] Left wrist tendonitis [facility] Work Phone: Hospital course Narrative No data available for this section [facility] No data available for this section [facility]Hoital Discharge instructionsAmbulatory Orders* Referral to General Surgery Time Frame: 01/12/24, Location: None [facility] Work Phone: InstructionsNot on filedocumented in this encounter [facility] SystemInstructionsNot on filedocumented in this encounter [facility] SystemInstructionsNot on filedocumented in this encounter [facility]Progress note No data available for this section [facility] (narrative)* Diagnostic Procedure Only (Routine) - Closed Specialty Diagnoses / Procedures Referred By Contac t Referred To Contact XR IMAGING Diagnoses Bilateral foot pain Procedures XR FOOT GENERAL 3V AP/LAT/OBL BILAT X-RAY FOOT MINIMUM 3 VIEWS Perla Foley DPM [address] [place] [address] [place] [address] Referral ID Status Reason Start Date Expiration Date V isits Requested Visits Authorized Closed Auto-Generate d Referral 06/04/2021 07/04/2022 1 1 * Diagnostic Procedure Only (Routine) - Closed Specialty Diagnoses / Procedures Referred By Contac t Referred To Contact XR IMAGING Diagnoses Heel pain, bilateral Procedures XR CALCANEUS 2V AXIAL/LAT LT X-RAY HEEL Perla Foley DPM [address] [place] [address] [place] [address] Referral ID Status Reason Start Date Expiration Date V isits Requested Visits Authorized Closed Auto-Generate d Referral 05/31/2021 06/30/2022 1 1 * Diagnostic Procedure Only (Routine) - Closed Specialty Diagnoses / Procedures Referred By Contac t Referred To Contact XR IMAGING Diagnoses Heel pain, bilateral Procedures XR CALCANEUS 2V AXIAL/LAT RT X-RAY HEEL Perla Foley DPM [address] [place] [address] [place] [address] Referral ID Status Reason Start Date Expiration Date V isits Requested Visits Authorized Closed Auto-Generate d Referral 05/31/2021 06/30/2022 1 1 [facility] for visit Narrative* Diagnostic Procedure Only (Routine) - Closed Specialty Diagnoses / Procedures Referred By Contac t Referred To Contact XR IMAGING Diagnoses Heel pain, bilateral Procedures XR CALCANEUS 2V AXIAL/LAT LT X-RAY HEEL Perla Foley DPM [address] [place] [address] [place] [address] Referral ID Status Reason Start Date Expiration Date V isits Requested Visits Authorized [id number] Closed Auto-Generate d Referral 05/31/2021 06/30/2022 1 1 [facility] Chief Complaint and Reason for Visit Chief Complaint m79.661 [id number] Chief Complaint m79.661 [id number] r07.9 Chief Complaint afib Chief Complaint afib check up Bumps on Back Reason for Visit Atrial fibrillation and flutter Hypertension Sebaceous cyst Chief Complaint check up Bumps on Back post nasal drip x3 months Reason for Visit Atrial fibrillation and flutter Hypertension Sebaceous cyst Chronic cough Chronic sinusitis Chief Complaint Admit Date Amb Documentation October 20, 2024 8: 28am Check Up/ER f/u shoulder pain October 242024 1:02pm Reason for Visit Admit Date Transient diplopia October 24, 2024 1 :02pm Chief Complaint Admit Date wellness April 07, 2025 1:18 pm Reason for Visit Admit Date Peripheral vascular disease, unspecified April 07, 2025 1:18pm Chief Complaint Admit Date wellness April 07, 2025 1:18 pm Hand joint pain May 08, 2025 9:29 am Reason for Visit Admit Date Atrial fibrillation and flutter March 1:18pm Hypertension April 07, 2025 1:18 pm Peripheral vascular disease, unspecified April 07, 2025 1:18pm Wellness examination April 07, 2025 1:1 8pm Advance Directives No Advanced Directives Records Found Advance Directive Response Recorded Date/ Time Advance Directives No August 1:30pm Advance Directive Response Recorded Date/ Time Advance Directives No August 2:30pm Family History No Family History Records FoundUnknown Family Member Name Dates Details No pertinent family history: Mother, Father, Sibling(V49.89, Z78.9) Status:Active Unknown Family Member Name Dates Details No pertinent family history: Mother, Father, Sibling(V49.89, Z78.9) Status:Active Unknown Family Member Name Dates Details No pertinent family history: Mother, Father, Sibling(V49.89, Z78.9) Status:Active Relationship Condition Age at Onset Recorded Date/T tyson father Unknown Not Specified Unknown Relationship Condition Age at Onset Recorded Date/T tyson father Unknown mother Unknown Reason for Referral Specialty Diagnoses / Procedures Referred By Contac t Referred To Contact Diagnoses Bilateral carotid artery stenosis Procedures Vas carotid duplex bilateral Sukumar Brewer MD [address], [address] [address] Referral ID Status Reason Start Date Expiration Date V isits Requested Visits Authorized [id number] Pending Review 01/21/2024 01/20/2025 1 1 Specialty Diagnoses / Procedures Referred By Contac t Referred To Contact Diagnoses Claudication ([facility]) Procedures Vas art doppler lwr bilat mult lev/PVR Sukumar Brewer MD [address], [address] [address] Referral ID Status Reason Start Date Expiration Date V isits Requested Visits Authorized [id number] Pending Review 01/21/2024 01/20/2025 1 1 Reason *FU 11/26 lumbar p ain, seeing pain mgmt at [facility] second opinion Diagnosis 1 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 Referred Address [address] [place] [phone] Referred Provider Specialty Pain Medicin e Referral Priority Routine General Notes Tisha Rodriguez 10:39:03 AM >received today, attachments made, notes locked, referral faxed Clinical Notes p: [id number] f: [id number] Specialty Diagnoses / Procedures Referred By Contac t Referred To Contact Cardiology Diagnoses Persistent atrial fibrillation ([facility]) Procedures Cardioversion External Americo Rabago MD [address] [facility] [address] [place] [address] Referral ID Status Reason Start Date Expiration Date V isits Requested Visits Authorized [id number] Pending Review 10/07/2023 10/06/2024 1 1 Specialty Diagnoses / Procedures Referred By Contac t Referred To Contact Cardiology Diagnoses Essential hypertension Persistent atrial fibrillation (CMS/HCC) Procedures Follow Up In Cardiology Americo Rabago MD [address] [facility] [address], [address] [place] [address] Referral ID Status Reason Start Date Expiration Date V isits Requested Visits Authorized [id number] Authorized 10/07/2023 10/06/2024 1 1 Specialty Diagnoses / Procedures Referred By Contac t Referred To Contact Diagnoses Abnormal EKG Preoperative clearance Procedures ECG 12 Lead Americo Rabago MD [address] [facility] [address], [address] [place] [address] Referral ID Status Reason Start Date Expiration Date V isits Requested Visits Authorized [id number] Pending Review 10/07/2023 10/06/2024 1 1 Reason 11/05/22 Stress an d echo completed at [facility]. Will move over last OV note from [facility] and scan it in. Thank you Diagnosis 1 Abnormal stress test (R94.39) Referral Organization [facility] miley Referring Provider First Name Julia Referring Provider Last Name Arslan Referring Provider Specialty Family [facility] Referred Organization [facility] enter Referred Provider Americo Rabago Referred Address [address] [facility] [address] [place] [address] Referred Provider Specialty Cardiology Referral Priority Routine [...] team informatio n (unrecognized section and content) Team Status: Active Member Role Status Dates Julia Mcdaniels MD Primary Care Provider Active Team Status: Inactive Member Role Status Dates Julia Mcdaniels MD Primary Care Provider Active Start: April 07, 2025 End: April 07, 2025 Julia Mcdaniels MD Attending Provider Active St art: April 07, 2025 End: April 07, 2025 Team Status: Active Member Role Status Dates Julia Mcdaniels MD Primary Care Provider Active Start: October 20, 2024 Xuan Moore CMA Attending Provider Active Start: October 20, 2024 Team Status: Active Member Role Status Dates Julia Mcdaniels MD Primary Care Provider Active Start: October 21, 2024 Mackenzie Hopson APRN-GRAIN HANDLER-C Attending Provider Acti ve Start: October 21, 2024 Team Status: Inactive Member Role Status Dates Julia Mcdaniels MD Primary Care Provide r, Attending Provider Active Start: October 24, 2024 End: October 24, 2024 Rotary Drier Relationship Specialty Start Date End Date Julia Mcdaniels MD [address] [place] [address] PCP - General Family Medicine 08/26/16 Rotary Drier Relationship Specialty Start Date End Date Julia Mcdaniels MD [address] [place] [address] PCP - General Family Medicine 08/26/16 Team Status: Inactive Member Role Status Dates Anupam Quesada DO Attending Provider Active Julia Mcdaniels MD Primary Care Provider Active Team Status: Inactive Member Role Status Dates Julia Mcdaniels MD Primary Care Provider, Attending Vi june Active W Song Segovia DO Referring Provider Active Rotary Drier Relationship Specialty Start Date End Date Julia Mcdaniels MD [address] [place] [facility] [place] [address] PCP - General Family Medicine 08/26/16 Rotary Drier Relationship Specialty Start Date End Date Julia Mcdaniels MD [address] [place] [address] PCP - General Family Medicine 08/26/16 Rotary Drier Relationship Specialty Start Date End Date Julia Mcdaniels MD [address] [place] [place] [address] PCP - General Family Medicine 08/26/16 Rotary Drier Relationship Specialty Start Date End Date Julia Mcdaniels MD [address] [place] [place] [address] PCP - General Family Medicine 08/26/16 Rotary Drier Relationship Specialty Start Date End Date Julia Mcdaniels MD [address] [place] [place] [address] PCP - General Family Medicine 08/26/16 Rotary Drier Relationship Specialty Start Date End Date Julia Mcdaniels MD [address] [place] [place] [address] PCP - General Family Medicine 08/26/16 Rotary Drier Relationship Specialty Start Date End Date Julia Mcdaniels MD [address] [place] [address] PCP - General Family Medicine 10/07/23 Rotary Drier Relationship Specialty Start Date End Date Julia Mcdaniels MD [address] [place] [address] PCP - General Family Medicine 10/07/23 Rotary Drier Relationship Specialty Start Date End Date Julia Mcdaniels MD [address] [place] [address] PCP - General Family Medicine 10/07/23 Team Status: Inactive Member Role Status Dates Julia Mcdaniels MD Primary Care Provider Active Start: November 04, 2023 End: November 04, 2023 Americo Rabago MD Attending Provider, Referring Provider Active Start: November 04, 2023 End: November 04, 2023 Rotary Drier Relationship Specialty Start Date End Date Julia Mcdaniels MD [address] [place] [address] PCP - General Family Medicine 08/26/16 Team [...] January 12, 2024 End: January 12, 2024 Team Status: Inactive Member Role Status Dates Julia Mcdaniels MD Primary Care Provide r, Attending Provider Active Start: February 17, 2024 End: February 17, 2024 Rotary Drier Relationship Specialty Start Date End Date Julia Mcdaniels MD [address] [place] [address] PCP - General Family Medicine 08/26/16 Rotary Drier Relationship Specialty Start Date End Date Julia Mcdaniels MD [address] [place] [place] [address] PCP - General Family Medicine 08/26/16 Rotary Drier Relationship Specialty Start Date End Date Julia Mcdaniels MD [address] [place] [place] [address] PCP - General Family Medicine 08/26/16 Rotary Drier Relationship Specialty Start Date End Date Julia Mcdaniels MD [address] [place] [address] PCP - General Family Medicine 08/26/16 Rotary Drier Relationship Specialty Start Date End Date Julia Mcdaniels MD [address] [place] [place] [address] PCP - General Family Medicine 08/26/16 Rotary Drier Relationship Specialty Start Date End Date Julia Mcdaniels MD [address] [place] [place] [address] PCP - General Family Medicine 06/17/23 Rotary Drier Relationship Specialty Start Date End Date Julia Mcdaniels MD [address] [place] [address] PCP - General Family Medicine 10/07/23 Maribeth Phipps MD [address] [place] [address], [place] [address] Consulting Physician Cardiology 04/15/24 Rotary Drier Relationship Specialty Start Date End Date Julia Mcdaniels MD [address] [place] [place] [address] PCP - General Family Medicine 08/26/16 Rotary Drier Relationship Specialty Start Date End Date Julia Mcdaniels MD [address] [place] [place] [address] PCP - General Family Medicine 08/26/16 Rotary Drier Relationship Specialty Start Date End Date Julia Mcdaniels MD [address] [place] [address] PCP - General Family Medicine 08/26/16 Rotary Drier Relationship Specialty Start Date End Date Julia Mcdaniels MD [address] [place] [address] PCP - General Family Medicine 06/17/23 Rotary Drier Relationship Specialty Start Date End Date Julia Mcdaniels MD [address] [place] [address] PCP - General Family Medicine 06/17/23 Rotary Drier Relationship Specialty Start Date End Date Julia Mcdaniels MD [address] [place] [address] PCP - General Family Medicine 06/17/23 Rotary Drier Relationship Specialty Start Date End Date Julia Mcdaniels MD [address] [facility] [place] [address] PCP - General Family Medicine 09/25/21 Rotary Drier Relationship Specialty Start Date End Date Julia Mcdaniels MD [address] [facility] [place] [address] PCP - General Family Medicine 09/25/21 Rotary Drier Relationship Specialty Start Date End Date Julia Mcdaniels MD [address] [facility] [place] [address] PCP - General Family Medicine 09/25/21 Rotary Drier Relationship Specialty Start Date End Date Julia Mcdaniels MD [address] [place] [address] PCP - General Family Medicine 06/17/23 Rotary Drier Relationship Specialty Start Date End Date Julia Mcdaniels MD [address] [place] [address] PCP - General Family Medicine 06/17/23 Rotary Drier Relationship Specialty Start Date End Date Julia Mcdaniels MD [address] [place] [address] PCP - General Family Medicine 06/17/23 Rotary Drier Relationship Specialty Start Date End Date Julia Mcdaniels MD [address] [place] [address] PCP - General Family Medicine 10/07/23 Maribeth Phipps MD [address] [place] [address] Consulting Physician Cardiology 04/15/24 Rotary Drier Relationship Specialty Start Date End Date Julia Mcdaniels MD PCP - General Family Medicine 06/17/23 Rotary Drier Relationship Specialty Start Date End Date Julia Mcdaniels MD [address] [place] [address] PCP - General Family Medicine 10/07/23 Maribeth Phipps MD [address] [place] [address] Consulting Physician Cardiology 04/15/24 Anupam Quesada DO [address] [place] [address] [address] [facility] [place] [address] Referring Physician 01/06/25 Rotary Drier Relationship Specialty Start Date End Date Julia Mcdaniels MD PCP - General Family Medicine 06/17/23 Rotary Drier Relationship Specialty Start Date End Date Julia Mcdaniels MD [address] [place] [place] [address] PCP - General Family Medicine 05/01/25 Team Status: Inactive Member Role Status Dates Julia Mcdaniels MD Primary Care Provider Active Start: May 08, 2025 End: May 08, 2025 Julia Mcdaniels MD Attending Provider Active St art: May 08, 2025 End: May 08, 2025 Rotary Drier Relationship Specialty Start Date End Date Julia Mcdaniels MD [address] [place] [address] PCP - General Family Medicine 10/07/23 Maribeth Phipps MD [address] [place] [address] Consulting Physician Cardiology 04/15/24 Anupam Quesada DO [address] [place] [address] Referring Physician 01/06/25 Zohaib Borja MD [address] [place] [address] Surgeon Vascular Surgery 04/28/25 Source Comments (unrecognize d section and content) In the event this informatio n is protected by the Federal Confidentiality of Alcohol and Drug Abuse Patient Records regulations: The Federal rules restrict any use of the information to criminally investigate or prosecute any alcohol or drug abuse patient.[facility] the event this information is protected by the Federal Confidentiality of Alcohol and Drug Abuse Patient Records regulations: The Federal rules restrict any use of the information to criminally investigate or prosecute any alcohol or drug abuse patient.[facility] the event this information is protected by the Federal Confidentiality of Alcohol and Drug Abuse Patient Records regulations: The Federal rules restrict any use of the information to criminally investigate or prosecute any alcohol or drug abuse patient.[facility] the event this information is protected by the Federal Confidentiality of Alcohol and Drug Abuse Patient Records regulations: The Federal rules restrict any use of the information to criminally investigate or prosecute any alcohol or drug abuse patient.[facility] the event this information is protected by the Federal Confidentiality of Alcohol and Drug Abuse Patient Records regulations: The Federal rules restrict any use of the information to criminally investigate or prosecute any alcohol or drug abuse patient.[facility] the event this information is protected by the Federal Confidentiality of Alcohol and Drug Abuse Patient Records regulations: The Federal rules restrict any use of the information to criminally investigate or prosecute any alcohol or drug abuse patient.[facility] the event this information is protected by the Federal Confidentiality of Alcohol and Drug Abuse Patient Records regulations: The Federal rules restrict any use of the information to criminally investigate or prosecute any alcohol or drug abuse patient.[facility] the event this information is protected by the Federal Confidentiality of Alcohol and Drug Abuse Patient Records regulations: The Federal rules restrict any use of the information to criminally investigate or prosecute any alcohol or drug abuse patient.[facility] the event this information is protected by the Federal Confidentiality of Alcohol and Drug Abuse Patient Records regulations: The Federal rules restrict any use of the information to criminally investigate or prosecute any alcohol or drug abuse patient.[facility] the event this information is protected by the Federal Confidentiality of Alcohol and Drug Abuse Patient Records regulations: The Federal rules restrict any use of the information to criminally investigate or prosecute any alcohol or drug abuse patient.[facility] the event this information is protected by the Federal Confidentiality of Alcohol and Drug Abuse Patient Records regulations: The Federal rules restrict any use of the information to criminally investigate or prosecute any alcohol or drug abuse patient.[facility] the event this information is protected by the Federal Confidentiality of Alcohol and Drug Abuse Patient Records regulations: The Federal rules restrict any use of the information to criminally investigate or prosecute any alcohol or drug abuse patient.[facility] the event this information is protected by the Federal Confidentiality of Alcohol and Drug Abuse Patient Records regulations: The Federal rules restrict any use of the information to criminally investigate or prosecute any alcohol or drug abuse patient.[facility] the event this information is protected by the Federal Confidentiality of Alcohol and Drug Abuse Patient Records regulations: The Federal rules restrict any use of the information to criminally investigate or prosecute any alcohol or drug abuse patient.[facility] the event this information is protected by the Federal Confidentiality of Alcohol and Drug Abuse Patient Records regulations: The Federal rules restrict any use of the information to criminally investigate or prosecute any alcohol or drug abuse patient.[facility] the event this information is protected by the Federal Confidentiality of Alcohol and Drug Abuse Patient Records regulations: The Federal rules restrict any use of the information to criminally investigate or prosecute any alcohol or drug abuse patient.[facility] HospitalIn the event this information is protected by the Federal Confidentiality of Alcohol and Drug Abuse Patient Records regulations: The Federal rules restrict any use of the information to criminally investigate or prosecute any alcohol or drug abuse patient.[facility] HospitalIn the event this information is protected by the Federal Confidentiality of Alcohol and Drug Abuse Patient Records regulations: The Federal rules restrict any use of the information to criminally investigate or prosecute any alcohol or drug abuse patient.[facility] the event this information is protected by the Federal Confidentiality of Alcohol and Drug Abuse Patient Records regulations: The Federal rules restrict any use of the information to criminally investigate or prosecute any alcohol or drug abuse patient.[facility] HospitalIn the event this information is protected by the Federal Confidentiality of Alcohol and Drug Abuse Patient Records regulations: The Federal rules restrict any use of the information to criminally investigate or prosecute any alcohol or drug abuse patient.[facility] HospitalIn the event this information is protected by the Federal Confidentiality of Alcohol and Drug Abuse Patient Records regulations: The Federal rules restrict any use of the information to criminally investigate or prosecute any alcohol or drug abuse patient.[facility]In the event this information is protected by the Federal Confidentiality of Alcohol and Drug Abuse Patient Records regulations: The Federal rules restrict any use of the information to criminally investigate or prosecute any alcohol or drug abuse patient.[facility]In the event this information is protected by the Federal Confidentiality of Alcohol and Drug Abuse Patient Records regulations: The Federal rules restrict any use of the information to criminally investigate or prosecute any alcohol or drug abuse patient.[facility]In the event this information is protected by the Federal Confidentiality of Alcohol and Drug Abuse Patient Records regulations: The Federal rules restrict any use of the information to criminally investigate or prosecute any alcohol or drug abuse patient.[facility]In the event this information is protected by the Federal Confidentiality of Alcohol and Drug Abuse Patient Records regulations: The Federal rules restrict any use of the information to criminally investigate or prosecute any alcohol or drug abuse patient.[facility]In the event this information is protected by the Federal Confidentiality of Alcohol and Drug Abuse Patient Records regulations: The Federal rules restrict any use of the information to criminally investigate or prosecute any alcohol or drug abuse patient.[facility] Reason for Visit (unrecogniz ed section and content) Reason Comments Follow-up EKG visit Specialty Diagnoses / Procedures Referred By Contac t Referred To Contact Diagnoses Persistent atrial fibrillation (CMS/HCC) Procedures ECG 12 Lead Americo Rabago MD [address] [facility] [address], [facility] [address] [place] [address] Referral ID Status Reason Start Date Expiration Date V isits Requested Visits Authorized [id number] Authorized 10/22/2023 10/21/2024 1 1 Reason Comments Polycythemia, secondary Reason Comments polycythemia Treatment visit Reason Comments polycythemia Treatment visit Reason Comments Appointment Reason Comments Patient Question Reason Comments Follow-up POC with EKG Reason Comments EKG visit Referral ID Status Reason Start Date Expiration Date V isits Requested Visits Authorized [id number] Pending Review 10/19/2023 10/18/2024 1 1 Reason Comments Polycythemia OTV Reason Comments Established Patient Reason Comments Pain Reason Comments Follow-up Specialty Diagnoses / Procedures Referred By Contac t Referred To Contact Cardiology Diagnoses Atrial fibrillation, currently in sinus rhythm High risk medication use Primary hypertension halfway current use of anticoagulant therapy Statin intolerance Procedures Follow Up In Cardiology Maribeth Phipps MD [address] [facility] [address] [place] [address] Phone: tel: fax: Referral ID Status Reason Start Date Expiration Date V isits Requested Visits Authorized [id number] Authorized 05/18/2024 05/18/2025 1 1 Reason Comments Pain Reason Comments Bilateral carotid artery stenosis Follow up testing prior Reason Comments Thrombophlebitis of superficial vein of lower leg Chronic Venous Insufficiency Reason Comments Follow-up Reason Comments Pre-op Clearance Reason for visit per pt: Pre testing for surgery Specialty Diagnoses / Procedures Referred By Contac t Referred To Contact Diagnoses Primary hypertension PAC (premature atrial contraction) Atrial fibrillation, currently in sinus rhythm Procedures ECG 12 lead (Clinic Performed) Maribeth Phipps MD [address] [facility] [address] [place] [address] Phone: tel: fax: Referral ID Status Reason Start Date Expiration Date V isits Requested Visits Authorized [id number] Authorized 01/05/2025 01/05/2026 1 1 Reason Comments Wrist Injury Pt states left wrist started hurting yesterday at 2pm. Reason Comments Post-op Reason Comments New Patient Visit Referred by PCP Goals (unrecognized section and content) Goals may [...] and content) DATE CREATED AUTHOR 12/17/2022 [facility] DATE CREATED AUTHOR AUTHOR'S ORGANIZ ATION 12/31/2022 [facility] DATE CREATED AUTHOR AUTHOR'S ORGANIZ ATION 02/07/2023 [facility] DATE CREATED AUTHOR AUTHOR'S ORGANIZ ATION 09/11/2023 [facility] DATE CREATED AUTHOR AUTHOR'S ORGANIZ ATION 10/01/2023 [facility] DATE CREATED AUTHOR AUTHOR'S ORGANIZ ATION 11/23/2023 [facility] DATE CREATED AUTHOR AUTHOR'S ORGANIZ ATION 04/27/2024 [facility] DATE CREATED AUTHOR AUTHOR'S ORGANIZ ATION 06/26/2024 [facility] DATE CREATED AUTHOR AUTHOR'S ORGANIZ ATION 07/11/2024 [facility] DATE CREATED AUTHOR AUTHOR'S ORGANIZ ATION 07/20/2024 [facility] DATE CREATED AUTHOR AUTHOR'S ORGANIZ ATION 09/14/2024 [facility] DATE CREATED AUTHOR AUTHOR'S ORGANIZ ATION 10/28/2024 [facility] DATE CREATED AUTHOR AUTHOR'S ORGANIZ ATION 01/15/[address] [facility] DATE CREATED AUTHOR AUTHOR'S ORGANIZ ATION 01/31/[address] [facility] DATE CREATED AUTHOR AUTHOR'S ORGANIZ ATION 02/03/2025 [facility] DATE CREATED AUTHOR AUTHOR'S ORGANIZ ATION 02/04/[address] [facility] DATE CREATED AUTHOR AUTHOR'S ORGANIZ ATION 02/16/2025 [facility] DATE CREATED AUTHOR AUTHOR'S ORGANIZ ATION 05/02/2025 [facility] EPIC DATE CREATED AUTHOR AUTHOR'S ORGANIZ ATION 05/28/2025 [facility] FOR RECORDS PERTAINING TO PATIENTS WHO ARE [...] BE BASED ON THE PRIMARY CLINICAL RECORDS. [employer] [facility]. provides no warranty or guarantee of the accuracy or completeness of information in this document.
== END 2025-07-24 14:05 | disposition home or self-care (01) ==
LOC: RAD 14:06
PROVIDERS: PCP Family Medicine; Visit Provider Family Medicine
DX: J41.1 Mucopurulent chronic bronchitis (principal)
CPT/HCPCS: 71046